=== PATIENT | female | born 1950 | race Caucasian/White ===

== ENCOUNTER 2022-11-14 09:05 | Outpatient (OUT) | payer MEDICARE, SELFPAY ==
[2022-11-14 09:57] LABS: Estimated Average Glucose 117 mg/dL; Glycohemoglobin A1C 5.7 % (4.5-6.2)
[2022-11-14 10:35] LABS: Alanine Aminotransferase 27 U/L (14-59); Albumin Globulin Ratio 0.9; Albumin Level 3.7 g/dL (3.4-5.0); Alkaline Phosphatase 112 U/L (46-116); Aspartate Amino Transferase 13 U/L (15-37); Bilirubin Direct <0.1 mg/dL (0.0-0.2); Bilirubin Total 0.2 mg/dL (0.2-1.0); Chol HDL Ratio 4.8; Cholesterol 252 mg/dL (<=200); Globulin 4.1 g/dL; HDL Cholesterol 53 mg/dL (40-60); Total Protein 7.8 g/dL (6.4-8.2); Triglycerides 409 mg/dL (<=150); VLDL CHOLESTEROL 81.8 mg/dL
[2022-11-14 11:11] LABS: LDL Cholesterol Direct 124 mg/dL
== END 2022-11-14 09:06 | disposition home or self-care (01) ==
LOC: LAB 09:08
PROVIDERS: PCP Internal Medicine; Visit Provider Internal Medicine
DX: E78.5 Hyperlipidemia, unspecified (principal); R73.9 Hyperglycemia, unspecified
CPT/HCPCS: 36415; 80061; 80076; 83036; 83721

== ENCOUNTER 2023-04-01 10:03 | Outpatient (OUT) | payer MEDICARE, SELFPAY ==
--- NOTE | 2023-04-01 10:20 | MM_ITS ---
Patient Name: YAIR GALARZA MR#: [id number] : 1950 Exam Date: 04/01/2023 Ordering Doctor: SHAIKH Love ENGEL . RADIOLOGY REPORT PROCEDURE: MM TOMOSYNTHESIS SCREENING BI COMPARISON: MG MAMM SCREEN 3D RABIA CAD, 03/21/2021. MG MAMM SCREEN 3D RABIA CAD, 03/29/2022. INDICATIONS: Screening Calculator Name NCI Breast Cancer Risk Assessment Tool 5 Year Breast Cancer Risk n/a% Lifetime Breast Cancer Risk n/a% Personal Breast Cancer Yes, Left breast cancer 2006 Personal Ovarian Cancer No Treatments Lumpectomy, radiation, and chemotherapy Family Cancers Father with lung cancer at age 51; Sister with colon cancer at age 54. LOCATION: [facility] BREAST COMPOSITION: Scattered areas fibroglandular density. FINDINGS: DIAGNOSTIC CATEGORY 2--BENIGN FINDING. NO CHANGE FROM COMPARISON. Scattered benign-appearing lymph nodes are present. RIGHT BREAST: No significant suspicious finding. LEFT BREAST: No significant suspicious finding. Stable area of architectural distortion with coarse calcifications lower inner quadrant, posterior breast RECOMMENDATIONS: ROUTINE MAMMOGRAM AND CLINICAL EVALUATION IN 12 MONTHS. PLEASE NOTE: A NORMAL MAMMOGRAM DOES NOT EXCLUDE THE POSSIBILITY OF BREAST CANCER. A CLINICALLY SUSPICIOUS PALPABLE LUMP SHOULD BE BIOPSIED. Dictated by: Naseem Kan MD on 04/01/2023 at 14:25 Approved by: Naseem Kan MD on 04/01/2023 at 14:27
[2023-04-01 10:52] LABS: Chol HDL Ratio 3.9; Cholesterol 184 mg/dL (<=200); HDL Cholesterol 47 mg/dL (40-60); Triglycerides 356 mg/dL (<=150); VLDL CHOLESTEROL 71.2 mg/dL
== END 2023-04-01 10:04 | disposition home or self-care (01) ==
LOC: MAMMO 10:04
PROVIDERS: PCP Internal Medicine; Visit Provider Internal Medicine
DX: Z12.31 Encounter for screening mammogram for malignant neoplasm of breast (principal); E03.9 Hypothyroidism, unspecified; E78.5 Hyperlipidemia, unspecified; Z85.3 Personal history of malignant neoplasm of breast; Z80.1 Family history of malignant neoplasm of trachea, bronchus and lung; Z80.0 Family history of malignant neoplasm of digestive organs
CPT/HCPCS: 36415; 77063; 77067; 80061; 84443

== ENCOUNTER 2023-11-18 11:22 | Outpatient (OUT) | payer MEDICARE, SELFPAY ==
--- OUTSIDE RECORDS SUMMARY | 2023-11-18 11:43 | XMS_ITS | CCD ---
Author Organization [facility] Care Team Providers Care Sample Maker Original Name Role Phone DO Jose David Godwin Primary Care Provider DO Jose David Godwin Attending Provider DO Trixie Gr Jr Other Provider [phone] Yuliet Perez DO Jose David Godwin Primary Care Provider [phone] LUANN Perez Attending Provider [phone] SHAIKH Lorelei ENGEL Admitting Unavailable SHAIKH Lorelei ENGEL Attending Unavailable SHAIKH Lorelei ENGEL Primary Care Unavailable CHIKIS, DR KARI Stern Consulting Unavailable SHAIKH Lorelei ENGEL Consulting Unavailable CITLALI, DR GARDINER Admitting Unavailable OSAGE, DR GARDINER Attending Unavailable OSAGE, DR GARDINER Primary Care Unavailable OSAGE, DR GARDINER Consulting Unavailable OSAGE, DR GARDINER Admitting Unavailable OSAGE, DR GARDINER Attending Unavailable OSAGE, DR GARDINER Primary Care Unavailable SPRINGFIELD, DR KARI Stern Consulting Unavailable OSAGE, DR GARDINER Consulting Unavailable Jose David Godwin MD Primary Care Provider AME HONG Attending Unavailable AME HONG Attending Unavailable SHIRA ZIMMER Attending Unavailable AME HONG Attending Unavailable AME HONG Referring Unavailable SHAIKH ENGEL Attending Unavailable JR. CRUZ, TRIXIE Sanches Attending Unavaila ble AME HONG Attending Unavailable Allergies Allergy Classification Reported Allergen(s) Allergy Type Date of Onset Reaction(s) Facility (1 source) Penicillin G Drug Allergy rash Fever Other (1 source) Penicillin Drug Allergy 0 [facility] (2 sources) Penicillins Drug Allergy 3 Hives, Itching, Rash [facility] Medications Current Medications Medication Drug Class(es) Dates Sig (Normalized) Sig (Original) fluticasone propionate 0.05 mg/actuat metered dose nasal spray (3 sources) Corticosteroid Start: 06-20-2022 take 1 spray(s) nasal route in the morning fluticasone (Flonase) 50 MCG/ACT nasal spray Administer 1 spray into affected nostril(s) in the morning. 0 06/20/2022 Active Flonase Active levothyroxine sodium 0.1 mg oral capsule (3 sources) l-Thyroxine take 1 tablet by mouth in the morning levothyroxine (Tirosint) 100 MCG capsule Take 1 tablet by mouth in the morning. 0 Active Levothyroxine So dium 100 MCG Orally Active montelukast 10 mg oral tablet (2 sources) Leukotriene Receptor Antagonist Start: 10-15-2022 montelukast (Singulair) 10 MG tablet Omeprazole (1 source) Proton Pump Inhibitor Omeprazole Active rosuvastatin calcium 10 mg oral tablet (2 sources) HMG-CoA Reductase Inhibitor Start: 10-28-2022 rosuvastatin (Crestor) 10 MG tablet sulfamethoxazole 800 mg / trimethoprim 160 mg oral tablet (1 source) Dihydrofolate Reductase Inhibitor Antibacterial, Sulfonamide Antimicrobial Start: 11-26-2021 take 1 tablet by mouth every twelve hours Bactrim DS 800-160 MG 1 tablet Orally Twice a day for 7 day(s) Nov, Active Problems Active Problems Problem Classification Problem Date Documented Date Episodic/Chronic Disorders of lipid metabolism (1 source) Hyperlipidemia, unspecified; Translations: [HYPERLIPIDEMIA UNSPECIFIED] Onset: 07-07-2022 Chronic Osteoarthritis (1 source) Arthritis of first carpometacarpal joint of right hand; Translations: [Unilateral primary osteoarthritis of first carpometacarpal joint, right hand] 05-24-2023 Chronic Other connective tissue disease (1 source) Pain in right hand; Translations: [Pain in right hand] 05-24-2023 Episodic Thyroid disorders (5 sources) Hypothyroidism, unspecified; Translations: [HYPOTHYROIDISM UNSPECIFIED] Onset: 02-06-2022 Chronic Unclassified (3 sources) LOW BACK PAIN, UNSPECIFIED; Translations: [LOW BACK PAIN, UNSPECIFIED] Onset: 07-07-2022 Past or Other Problems Problem Classification Problem Date Documented Da te Episodic/Chronic Genitourinary symptoms and ill-defined conditions (1 source) Dysuria Onset: 11-26-2021 Resolved: 11-26-2021 Episodic Other screening for suspected conditions (not mental disorders or infectious disease) (4 sources) Encounter for screening mammogram for malignant neoplasm of breast; Translations: [ENC SCR MAMMO MALIG NEOPLASM BREAST] Onset: 03-29-2022 Episodic Residual codes; unclassified (1 source) Family history of malignant neoplasm of trachea, bronchus and lung; Translations: [FAM HX MALIG NEOPLSM TRACH BRON LNG] Onset: 04-03-2022 Episodic Residual codes; unclassified (1 source) Family history of malignant neoplasm of digestive organs; Translations: [FAM HX MALIG NEOPLASM DIGESTIV ORGN] Onset: 04-03-2022 Episodic Unclassified (1 source) LOW BACK PAIN, UNSPECIFIED; Translations: [LOW BACK PAIN, UNSPECIFIED] Onset: 07-03-2022 Urinary tract infections (1 source) Acute cystitis with hematuria Onset: 11-26-2021 Resolved: 11-26-2021 Episodic Results Test Name Value Interpretation Reference Range Facility DIRECT LDLon 07-03-2022 Cholesterol in LDL [Mass/Vol] 174 mg/dL Normal [facility] Comment on above: Performed By: #### D LDL, LIPID, TSH #### [facility] [address] [address] [address] Radha Farris DLDL NORMAL SEE BELOW Normal [facility] Comment on above: Result Comment: <100 mg/dl OPTIMAL 100 - 129 mg/dl NEAR OR ABOVE OPTIMAL 130 - 159 mg/dl BORDERLINE HIGH 160 - 189 mg/dl HIGH >190 mg/dl VERY HIGH Performed By: #### D LDL, LIPID, TSH #### [facility] [address] [address] [address] Radha Farris LIPID PROFILEon 07-03-2022 CHOL-HDL RATIO NORM SEE BELOW Normal [facility] Comment on above: Result Comment: 3.3 - 4.4 LOW RISK 4.4 - 7.1 AVERAGE RISK 7.1 - 11.0 MODERATE RISK >11.0 HIGH RISK Performed By: #### D LDL, LIPID, TSH #### [facility] [address] [address] [address] Radha Farris Cholesterol [Mass/Vol] 395 mg/dL Critically high <=200 [facility] Comment on above: Performed By: #### D LDL, LIPID, TSH #### [facility] [address] [address] [address] Radha Farris Cholesterol in HDL [Mass/Vol] 35 mg/dL Critically low 40-[address] [facility] Comment on above: Performed By: #### D LDL, LIPID, TSH #### [facility] [address] [address] [address] Radha Farris Cholesterol.total/C holesterol in HDL [Mass ratio] 11.3 {ratio} Normal [facility] Comment on above: Performed By: #### D LDL, LIPID, TSH #### [facility] [address] [place] [address] Dr. Radha Farris HDL NORMAL > or = 60 mg/dl - LO W CARDIOVASCULAR RISK <40 mg/dl - HIGH CARDIOVASCULAR RISK Normal [facility] Comment on above: Performed By: #### D LDL, LIPID, TSH #### [facility] [address] [address] [address] Radha Farris Triglyceride [Mass/Vol] 935 mg/dL Critically high <=[address] [facility] Comment on above: Performed By: #### D LDL, LIPID, TSH #### [facility] [address] [address] [address] Radha Farris TSHon 07-03-2022 TSH 0.906 uIU/mL Normal 0.358-3.740 [facility] Comment on above: Performed By: #### D LDL, LIPID, TSH #### [facility] [address] [place] [address] Dr. Radha Farris XR LSPINE 2_3 VIEWSon 2022 XR LSPINE 2_3 VIEWS EXAMINATION: XR LSPINE 2_3 VIEWS HISTORY: Low back pain COMPARISON: No relevant comparison available. FINDINGS: BONES: 7 mm anterolisthesis of L4 on L5. Mild spondylosis. Moderate to severe diffuse facet osteoarthropathy DISC SPACES: Multilevel disc space narrowing most significant at L5-S1 PARASPINOUS: Negative. No paraspinous abnormality is seen. OTHER: Extensive vascular calcifications IMPRESSION: Moderate to severe degenerative facet osteoarthropathy Electronically authenticated by: KARI DIOP Date: 2022-07-03 13:22 Normal [facility] MG MAMM SCREEN 3D RABIA CADon 03-29-2022 MG MAMM SCREEN 3D RABIA CAD Patient: BERTHA GALARZA Exam Date: 03/29/2022 : 1950 Gender:F Ordering : DR JOSE DAVID GODWIN D.O. Admission #: [id number] Family : Order #: [id number] CLICK HERE TO VIEW EXAM RADIOLOGY REPORT PROCEDURE: MAMMOGRAM SCREENING 3D BILATERAL CAD COMPARISON: MG MAMM SCREEN RABIA W CAD, 03/11/2020. MG MAMM SCREEN 3D RABIA CAD, 03/21/2021. INDICATIONS: Screening mammography Calculator Name NCI Breast Cancer Risk Assessment Tool 5 Year Breast Cancer Risk n/a% Lifetime Breast Cancer Risk n/a% Personal Breast Cancer Yes, Left breast cancer 2006 Personal Ovarian Cancer No Treatments Lumpectomy, radiation, and chemotherapy Family Cancers Father with lung cancer at age 51; Sister with colon cancer at age 54. LOCATION: [facility] BREAST COMPOSITION: Scattered areas fibroglandular density. FINDINGS: DIAGNOSTIC CATEGORY 2--BENIGN FINDING. NO CHANGE FROM COMPARISON. Scattered benign-appearing calcifications are present. Scattered benign-appearing lymph nodes are present. RIGHT BREAST: No significant suspicious finding. LEFT BREAST: No significant suspicious finding. Asymmetrically small, stable. Linear scar marker with architectural distortion lower inner quadrant. Large stable coarse calcification likely postprocedural calcification. RECOMMENDATIONS: ROUTINE MAMMOGRAM AND CLINICAL EVALUATION IN 12 MONTHS. PLEASE NOTE: A NORMAL MAMMOGRAM DOES NOT EXCLUDE THE POSSIBILITY OF BREAST CANCER. A CLINICALLY SUSPICIOUS PALPABLE LUMP SHOULD BE BIOPSIED. Dictated by: Kari Diop MD on 03/29/2022 at 13:21 Approved by: Kari Diop MD on 03/29/2022 at 13:23 Normal [facility] T4on 02-06-2022 T4 [Mass/Vol] 9.60 ug/dL Normal 4.80-13.90 [facility] Comment on above: Performed By: #### T 4, TSH #### [facility] [address] [address] [address] Radha Farris TSHon 02-06-2022 TSH 0.188 uIU/mL Critically low 0.358-3.740 [facility] Comment on above: Performed By: #### T 4, TSH #### [facility] [address] [address] [address] Radha Farris Urine culture routineOrdered By: Yuliet Perez on 11-29-2021 Bacteria identified Cx Nom (U) Escherichia coli [facility] Urinalysis - AUTOMATEDon Appearance (U) clowdy [employer] Other Bilirubin Ql (U) Negative Kens[employer] Other Color (U) yellow Fever Other Glucose Ql (U) Negative [employer] Other Hemoglobin Ql (U) small [employer] Other Ketones Ql (U) Negative [employer] Other Leukocyte esterase Test strip Ql (U) large Fever Other Nitrite Ql (U) Negative [employer] Other pH (U) 6.0 [pH] Fever Other Protein Ql (U) 30 [employer] Other Specific gravity (U) [Rel density] 1.020 Fever Other Urobilinogen (U) [Mass/Vol] 0.2 mg/dL Fever Other Urinalysis - AUTOMATED Fever Other Urine Cultureon 11-26-2021 Urine Culture 20,000 Fever Other Urine Culture <16 Susceptible [employer] Other Urine Culture <8 Susceptible [employer] Other Urine Culture <4 Susceptible [employer] Other Urine Culture <2 Susceptible [employer] Other Urine Culture <1 Susceptible [employer] Other Urine Culture <0.5 Susceptible [employer] Other Urine Culture <32 Susceptible [employer] Other Urine Culture <2/38 Susceptible [employer] Other Bacteria identified Cx Nom (U) ORGANISM: Escherichia coli (O:ESCCOL) Driggs Count 20,000 Aerobic ALMA Charge (NUC86) ---- SUSCEPTIBILITY --- ORGANISM: O:ESCCOL ANTIBIOTIC INTERPRETATION ALMA Amikacin S <16 Ampicillin S <8 Ampicillin/Sulbactam S <8/4 Aztreonam S <4 Cefazolin S <2 Cefepime S <2 Ceftazidime S <1 Ceftazidime/Avibactam S <8 Ceftriaxone S <1 Ciprofloxacin S <1 Ertapenem S <0.5 Gentamicin S <4 Levofloxacin S <2 Meropenem S <1 Nitrofurantoin S <32 Piperacillin/Tazobact am S <16 Tetracycline S <4 Tigecycline S <2 Tobramycin S <4 Trimethoprim/Sulfamet hoxazole S <2/38 S = SUSCEPTIBLE I = INTERMEDIATE R = RESISTANT BLANK = DATA NOT AVAILABLE, OR DRUG NOT ADVISABLE OR TESTED R* = RESISTANCE DUE TO EXTENDED SPECTRUM BETA-LACTAMASES ESBL = EXTENDED SPECTRUM BETA-LACTAMASE TFG = THYMIDINE-DEPENDENT STRAIN CADY = BETA-LACTAMASE POSITIVE IB = INDUCIBLE BETA-LACTAMASE. APPEARS IN PLACE OF 'S' WITH SPECIES KNOWN TO POSSESS INDUCIBLE BETA-LACTAMASES. POTENTIALLY THEY MAY BECOME RESISTANT TO ALL B-LACTAM DRUGS. PERFORMED BY: [place] [id number] PATHOLOGIST FILM COMPOSER JONATHAN PHAN M.D. Normal [facility] Comment on above: Performed By: #### C UU #### [address] chest w toneon 09-13-2021 CT chest w con [facility] [address] [place] [address] CT Scan Report Signed Patient: Bertha Galarza MR#: [id number] : 1950 Acct:[id number] Age/Sex: 71 / F ADM Date: 09/13/21 [facility] Room: Type: [facility] Attending Dr: Jose David Godwin DO Ordering Provider: Jose David Godwin DO Date of Service: 09/13/21 CT/CT chest w con: LT UPPER LOBE MASS Copies to: Jose David Godwin DO CT chest withcontrast TECHNIQUE: Axial imaging with 2-D reconstruction. (3 cc of Isovue-300The CT exam was performed using one or more the following dose reduction techniques: Automated exposure control, adjustment of the MA and/or Kv according to patient size, or use of the iterative reconstruction technique. History: Left upper lung mass seen with facet chest x-ray at [facility]. COMPARISON: 08/29/2021 plain film chest The thyroid gland is normal. Central airway is patent. Esophagus is normal course and caliber. Heart is not enlarged. No pericardial effusion is seen. Nonenlarged mediastinal lymph nodes identified. No hilar mass or adenopathy is seen. No thoracic aortic aneurysm is seen. Small region of nodular consolidation in the posterior lateral portion of the right lower lobe measures up to 15 mm. No infiltrate or congestion identified. No pleural effusion identified. No pneumothorax seen. There is a conglomeration of soft tissue calcification which extends from the left intercostal region to the subcutaneous region of the left mastectomy. This appears to be benign and may correspond with dystrophic calcification. No left lung mass identified. The bony structures are intact. Cholecystectomy clips identified. CT/CT chest w con IMPRESSION: Soft tissue calcification likely secondary to the postoperative changes of the left mastectomy as described above. This corresponds with the plain film findings. No left lung nodule identified. 15 mm region of groundglass density in the right lower lobe. This may represent infectious or inflammatory etiology. Impression dictated by: Nehemias Rasheed M.D.09/13/2021 1:21 PM Dictation Location: [place] [address] Transcribed By: ROSE 09/13/21 1321 Dictated By: Nehemias Rasheed DO 09/13/21 1310 Signed By: 09/13/21 1321 Normal [facility] ISTAT Sebastian Arizmendi 09-13-2021 Creatinine [Mass/Vol] 0.6 mg/dL Normal 0.6-1.3 [facility] Comment on above: Result Comment: ER/E SD physician is notified/shown all ISTAT results. Critical values may be confirmed by laboratory testing if deemed necessary by ER attending doctor. Performed By: #### I SCRE #### [facility] [address] Point of Care testing , ISTAT GFR ( > 60 Normal [facility] Comment on above: Result Comment: GFR estimated reference range: According to KDOQI guidelines, <60 ml/min/1.73m2 is sufficient to diagnose a patient with chronic kidney disease. PERFORMED BY: [place] [address] PATHOLOGIST FILM COMPOSER JONATHAN PHAN M.D. Performed By: #### I SCRE #### [facility] [address] Point of Care testing , ISTAT GFR (Non- Am > 60 Normal [facility] Comment on above: Performed By: #### I SCRE #### [facility] [address] [place] [address] Point of Care testing , Vital Signs Date Time Vital Sign Value Performing Clinician Facility 11-26-2021 11:15040 Body height 167.64 cm Yuliet Perez Other [facility] Other 11-26-2021 11:15-0400 Body mass index (BMI) [Ratio] 30.66 kg/m2 Yuliet Perez Other [facility] Other 11-26-2021 11:15-0400 Body temperature 98 [degF] Yuliet Perez Other [facility] Other 11-26-2021 11:15-0400 Body weight 86.18 kg Yuliet Perez Other F[facility] Other 11-26-2021 11:15-0400 Diastolic blood pressure 61 mm[Hg] Yuliet Perez Other F[facility] Other 11-26-2021 11:15-0400 SaO2% (BldA) [Mass fraction] 98 % Yuliet Perez Other [facility] Other 11-26-2021 11:15-0400 Systolic blood pressure 117 mm[Hg] Yuliet Perez Other F[facility] Other Encounters Encounter Date Encounter Type Care Provider Facility Start: 09-03-2023 End: 09-03-2023 ambulatory SHAIKH MAREN Not Available Start: 05-24-2023 Chart abstracting Ame ROA Work Phone: [facility] Start: 05-24-2023 End: 05-25-2023 ambulatory AME HONG Not Available Start: 05-24-2023 End: 05-24-2023 Postop follow up visit related to original px Ame ROA Work Phone: [facility] Comment on above: S/P carpal tunnel re lease (Primary Dx); Right hand pain; Arthritis of carpometacarpal (CMC) joint of right thumb Start: 05-10-2023 End: 05-10-2023 ambulatory AME HONG Not Available Start: 04-19-2023 End: 04-19-2023 ambulatory AME HONG Not Available Start: 03-29-2023 End: 03-29-2023 ambulatory AME HONG Not Available Start: 03-20-2023 End: 03-20-2023 ambulatory TRIXIE FUENTES Not Available Start: 03-18-2023 End: 03-18-2023 ambulatory SHIRA ZIMMER Not Available Start: 07-03-2022 End: 07-04-2022 ambulatory SHAIKH Lorelei ENGEL Facility:[facility] Start: 03-29-2022 End: 03-30-[address] JOSE DAVID GODWIN Facility:[facility] Start: 02-06-2022 End: 02-07-[address] JOSE DAVID GODWIN Facility:[facility] Start: 11-26-2021 End: 11-26-2021 ambulatory Yuliet Perez Other Fever Other Start: 11-26-2021 Office outpatient ne w 20 minutes Yuliet Perez [facility] [place] Start: 11-26-2021 End: 11-26-2021 Departed Referred DO Jose David Godwin Work Phone: [facility] [address] Start: 09-13-2021 End: 09-13-2021 Patient encounter procedure DO Jose David Citlali Work Phone: [facility] [address] Procedures Date Procedure Procedure Detail Performing Clinician Start: 04-01-2023 Mammography Ame ROA Work Phone: Start: 11-26-2021 Piperacillin/tazobactam Yuliet Perez Other Start: 09-13-2021 CT of thorax with contrast DO Jose David Godwin Work Phone: History of decompres tatum of median nerve S/P carpal tunnel release Ame ROA Work Phone: Urine culture DO Jose David [facility] Work Phone: Plan of Treatment Date Care Activity Detail Author Start: 04-01-2024 Screening for malignant neoplasm of breast Mammogram [facility] Start: 03-23-2024 End: 03-23-2024 Patient encounter procedure 03/23/2024 2:05 PM EST Office Visit [facility] [address] [place] [address] Shira Zimmer MD [address] [place] [address] [facility] Start: 10-11-2023 End: 10-11-2023 Patient encounter procedure 10/11/2023 10:30 AM EDT Office Visit [facility] [address] [place] [address] Ame Hong PA [address] [place] [address] [facility] Start: 05-24-2023 End: 05-24-2023 Patient encounter procedure 05/24/2023 10:30 AM EST Office Visit [facility] [address] [place] [address] Ame Hong PA [address] [place] [address] [facility] Start: 1950 Screening for malignant neoplasm of colon [facility] XR Hand - right 3 Views XR hand 3+ views right Imaging Routine Right hand pain 05/24/2023 10:32 AM EST [facility] Work Phone: Payers Date Payer Category Payer Medicare [employer] MEDICARE ADVANTAGE [facility] MEDICARE ADVANTAGE [id number] 2021-Present [address] [place] [address] [id number] 1959 Medicare [id number] 1950 Unknown [id number] 1950 Unknown [id number] [id number] 1950 Unknown [id number] [id number] 1950 Unknown [id number] [id number] 9 1950 Unknown [id number] [id number] 9 1950 Unknown [id number] [id number] 9 1950 Unknown [id number] [id number] 9 1950 Unknown [id number] [id number] 9 1950 Unknown [id number] [id number] 9 1950 Unknown [id number] [id number] 9 1950 Unknown [id number] [id number] 9 Self-pay Self Pay [id number] Unknown [place] [employer] 1 [id number] Unknown [id number] (STD) [id number] Social History Date Type Detail Facility Tobacco smoking status NHIS Unknown if ever smoked [facility] Work Phone: Start: 1950 Sex Assigned At Female F [facility] Start: 03-29-2023 Sex Assigned At N [facility] [employer] Other Start: 11-07-2022 Tobacco smoking status NHIS Smokes tobacco daily [facility] History of tobacco use Cigarette Smoker [facility] Start: 11-07-2022 Tobacco use and exposure Smokeless tobacco non-user [facility] Start: 05-03-2023 End: 05-24-2023 Alcohol intake Lifetime non-drinker (finding) [facility] Start: 03-29-2023 History of Social function [facility] Start: 01-14-1951 Sex Assigned At Not on file [facility] History of Present illness Narrative 05-24-2023 JANINA Jackson - 05/24/2023 10:30 AM EST Note Date & Type Note Facility 05-24-2023 History of Presen t illness Narrative Images from the original note were not included. HISTORY OF PRESENT ILLNESS: POST OP PT Bertha Galarza is an 73 y.o. @ female. No surgery found s/p surgery onNo surgery found (EST PT) S/P (R) CTR 04/05/23 (7WKS)- DOING BETTER- NOTES SOME DISCOMFORT- SOME N/T RT THUMB/IF/MF; MOST HS- NOTES SWELLING IN THE AM-+TYLENOL/IBUPROFEN XRAY RT HAND TODAY CHANGE 05/24/23 REVIEW OF SYSTEMS: General: Denies fever, fatigue or weight loss Lungs: Denies SOB Cardio: Denies chest pain GI: Denies indigestion or abdominal pain Neuro: Denies numbness or tingling, denies new onset paralysis Musculoskeletal: ( see note) PHYSICAL EXAM: Hand/Wrist Musculoskeletal Exam Inspection Right Right hand/wrist inspection is normal. Erythema: none Ecchymosis: none Edema: none Deformity: mild Deformity comment: prominence CMC joint of thumb. Palpation Right Right hand palpation is normal. Thumb tenderness to palpation: carpometacarpal joint Dorsal hand - 1st metacarpal tenderness to palpation: CMC Palpation additional comments: DENIES PAIN TO PALPATION OF HAND/ WRIST JOINT Range of Motion Right Hand Right hand range of motion is normal. Range of motion additional comments: ABLE TO MAKE FULL FIST Strength Right Hand Right hand strength is normal. Strength additional comments: 5/5 EQUAL RN UROLOGY STRENGTH Neurovascular Right Right neurovascular exam is normal. Radial pulse: normal and 2+ Capillary refill: <3 sec Special Tests Right Cori's test: negative CMC grind test: positive TFCC load test: negative Tinel's - carpal tunnel: negative General Constitutional: appears stated age Labored breathing: no Neurological: alert and oriented x3 Skin: intact Lymphadenopathy: none Procedures Orders Placed This Encounter Procedures XR hand 3+ views right Order Specific Question: Reason for exam: Answer: PAIN ASSESSMENT: ICD-10-CM 1. S/P carpal tunnel release Z98.890 2. Right hand pain M79.641 XR hand 3+ views right PLAN: Reviewed x-ray with patient at bedside, CMC arthritis, patient would like to continue with ice and topical Voltaren, she declines the need for injection today, she would consider this in the future pain does not improve. She is pleased with the carpal tunnel surgery able to use her hand for more function and notes symptoms are much better than 2-3 weeks ago. Patient will call if thumb pain versus for possible injection with surgical and nonsurgical treatment options discussed. Questions answered in laymen terms at the bedside. The diagnosis, home exercise plan and any ongoing restrictions/ recommendations reviewed. If unable to be reached in office, I recommend evaluation at nearest Emergency Room if any symptoms worsened or new symptoms develop for requiring urgent evaluation. JANINA Jackson documented in this encounter [facility] Healthcare Evaluation note 11-26-2021 Note Date & Type Note Facility 11-26-2021 Evaluation note Encounter Date Diagnosis Assessment Notes Nov, Dysuria (ICD-10 - R30.0) Nov, Acute cystitis with hematuria (ICD-10 - N30.01) Discussed diagnosis and dipstick findings with patient. Will treat patient for UTI. Instructed patient to take antibiotic as prescribed, take with food, complete entire course of therapy even if feeling better. Allergies and recent antibiotic use were reviewed with patient. Advised patient culture was sent today and we will call with her results in 2-5 days. Patient instructed to push fluids. Patient symptoms should improve in the next 48 hours, if symptoms persist follow up with PCP or UC. Immediate eval by ER if back or flank pain, fever, chills, N/V, or any other concerning symptoms arise. Patient verbalizes understanding and is agreeable to treatment plan Fever Other Evaluation note Note Date & Type Note Facility Evaluation note No [facility]: Evaluation note Note Date & Type Note Facility Evaluation note Diagnosis S/P carpal tunnel release- Primary Other postprocedural status Right hand pain Pain in soft tissues of limb Arthritis of carpometacarpal (CMC) joint of right thumb documented in this encounter [facility] Healthcare History general Narrative - Reported Note Date & Type Note Facility History general Narrative - Reported Type Medical History Hypothyroid Medical History Hypercholesterolemia Medical History Breast cancer Surgical History colonoscopy Surgical History cholecystectomy Surgical History knee arthroscopy Surgical History tonsillectomy and adenoidectomy Surgical History wisdom teeth Surgical History laparoscopy Surgical History tubal ligation Surgical History biopsy Surgical History left knee replacement 10/04 Hospitalization History see above Fever Other Chief Complaint and Reason for Visit Chief Complaint lung mass Chief Complaint R30.0 Advance Directives No Advanced Directives Records Found Advance Directive Response Recorded Date/ Time Advance Directives No September 08 2:46pm Summary Purpose Family History No Family History Records FoundNo Family History Records FoundNo Family History Records Found Additional Source Comments Care Teams (unrecognized sec tion and content) Team Status: Inactive Member Role Status Dates Jose David Godwin , Primary Care Provider, Attending Pr aníbal Active Trixie Gr Jr, Other Provider Active Team Status: Active Member Role Status Dates Jose David Godwin DO Primary Care Provider Active Team Status: Inactive Member Role Status Dates Jose David Godwin , Primary Care Provider Active Yuliet Perez APRN Attending Provider Active Sample Maker Original Relationship Specialty Start Date End Date Jose David Godwin MD [address] [place] [address] PCP - General Family Medicine 10/11/22 Sample Maker Original Relationship Specialty Start Date End Date Jose David Godwin MD [address] [place] [address] PCP - General Family Medicine 10/11/22 Goals (unrecognized section and content) Goals may be documented in a n alternate sectionNo InformationGoals may be documented in an alternate section REASON FOR VISIT (unrecogniz ed section and content) Reason Comments Pain INFORMATION SOURCE (unrecogn ized section and content) DATE CREATED AUTHOR 12/05/2021 [facility] DATE CREATED AUTHOR AUTHOR'S ORGANIZ ATION 07/08/2022 [facility] DATE CREATED AUTHOR AUTHOR'S ORGANIZ ATION 09/06/2023 [facility] EPIC FOR RECORDS PERTAINING TO PATIENTS WHO ARE OR HAVE BEEN ENROLLED IN A CHEMICAL DEPENDENCY/SUBSTANCEABUSE PROGRAM, SOME INFORMATION MAY BE OMITTED. This clinical summary was aggregated from multiple sources. Caution should be exercised in using it in the provision of clinical care. This summary normalizes information from multiple sources, and as a consequence, information in this document may materially change the coding, format and clinical context of patient data. In addition, data may be omitted in some cases. CLINICAL DECISIONS SHOULD BE BASED ON THE PRIMARY CLINICAL RECORDS. [facility] [employer] [facility]. provides no warranty or guarantee of the accuracy or completeness of information in this document.
[2023-11-18 12:59] LABS: Chol HDL Ratio 4.2; Cholesterol 192 mg/dL (<=200); HDL Cholesterol 46 mg/dL (40-60); Triglycerides 430 mg/dL (<=150)
[2023-11-18 14:11] LABS: LDL Cholesterol Direct 83 mg/dL
== END 2023-11-18 11:23 | disposition home or self-care (01) ==
LOC: LAB 11:25
PROVIDERS: PCP Internal Medicine
DX: E78.1 Pure hyperglyceridemia (principal); H26.493 Other secondary cataract, bilateral; H34.211 Partial retinal artery occlusion, right eye; E78.2 Mixed hyperlipidemia; R06.02 Shortness of breath
CPT/HCPCS: 36415; 80061; 83721

== ENCOUNTER 2023-11-19 10:21 | Outpatient (OUT) | payer MEDICARE, SELFPAY ==
--- NOTE | 2023-11-19 | ECG_ITS ---
[facility] Test Date: 2023-11-19 Pat Name: YAIR GALARZA Department: Room: - Gender: Female Director Of Social Services: : 1950 Requested By: [id number] Order Number: [id number] Reading MD: ERIC FRANK Measurements Intervals [place] Rate: 75 P: 73 MN: 146 QRS: -80 QRSD: 131 T: 46 QT: 392 QTc: 438 Interpretive Statements SINUS RHYTHM RIGHT BUNDLE BRANCH BLOCK [120+ ms QRS DURATION, UPRIGHT V1, 40+ ms S IN I/aVL/V4/V5/V6] LEFT ANTERIOR FASCICULAR BLOCK [QRS AXIS <= -45, QR IN I, RS IN II] INFERIOR MYOCARDIAL INFARCTION [40+ ms Q WAVE AND/OR ST/T ABNORMALITY IN II/aVF], OF INDETERMINATE AGE No previous ECG available for comparison Electronically Signed On 11-19-2023 22:27:07 EDT by ERIC FRANK
--- OUTSIDE RECORDS SUMMARY | 2023-11-19 10:39 | XMS_ITS | CCD ---
Author Organization [facility] Care Team Providers Care Outpatient Coding Specialist Name Role Phone DO Jose David Godwin Primary Care Provider DO Jose David Godwin Attending Provider DO Trixie Gr Jr Other Provider Yuliet Perez DO Jose David Godwin Primary Care Provider LUANN Perez Attending Provider SHAIKH Lorelei ENGEL Admitting Unavailable SHAIKH Lorelei ENGEL Attending Unavailable SHAIKH Lorelei ENGEL Primary Care Unavailable CHIKIS, DR KARI Stern Consulting Unavailable SHAIKH Lorelei ENGEL Consulting Unavailable CITLALI, DR GARDINER Admitting Unavailable FARMVILLE, DR GARDINER Attending Unavailable FARMVIL[place], DR GARDINER Primary Care Unavailable [place], DR GARDINER Consulting Unavailable [place], DR GARDINER Admitting Unavailable [place], DR GARDINER Attending Unavailable [place], DR GARDINER Primary Care Unavailable [place], DR KARI Stern Consulting Unavailable [place], DR GARDINER Consulting Unavailable Jose David Godwin [...] (1 source) Penicillin G Drug Allergy rash [employer] Other (1 source) Penicillin Drug Allergy 0 [facility] Repository (2 sources) Penicillins Drug Allergy [...] Cholesterol in LDL [Mass/Vol] 174 mg/dL Normal [facility] Comment on above: Performed By: #### D LDL, LIPID, TSH #### [facility] [address] [address] [address] Radha Farris DLDL NORMAL SEE BELOW Normal [facility] Comment on above: Result Comment: <100 mg/dl OPTIMAL 100 - 129 mg/dl NEAR OR ABOVE OPTIMAL 130 - 159 mg/dl BORDERLINE HIGH 160 - 189 mg/dl HIGH >190 mg/dl VERY HIGH Performed By: #### D LDL, LIPID, TSH #### [facility] [address] [address] [address] Radha Farris LIPID PROFILEon 07-03-2022 CHOL-HDL RATIO NORM SEE BELOW Normal [facility] Comment on above: Result Comment: 3.3 - 4.4 LOW RISK 4.4 - 7.1 AVERAGE RISK 7.1 - 11.0 MODERATE RISK >11.0 HIGH RISK Performed By: #### D LDL, LIPID, TSH #### [facility] [address] [address] [address] Radha Farris Cholesterol [Mass/Vol] 395 mg/dL Critically high <=200 [facility] Comment on above: Performed By: #### D LDL, LIPID, TSH #### [facility] [address] [address] [address] Radha Farris Cholesterol in HDL [Mass/Vol] 35 mg/dL Critically low 40-60 [facility] Comment on above: Performed By: #### D LDL, LIPID, TSH #### [facility] [address] [address] [address] Radha Farris Cholesterol.total/C holesterol in HDL [Mass ratio] 11.3 {ratio} Normal [facility] Comment on above: Performed By: #### D LDL, LIPID, TSH #### [facility] [address] [place] [address] Dr. Radha Farris HDL NORMAL > or = 60 mg/dl - LO W CARDIOVASCULAR RISK <40 mg/dl - HIGH CARDIOVASCULAR RISK Normal [facility] Comment on above: Performed By: #### D LDL, LIPID, TSH #### [facility] [address] [address] [address] Radha Farris Triglyceride [Mass/Vol] 935 mg/dL Critically high <=150 [facility] Comment on above: Performed By: #### D LDL, LIPID, TSH #### [facility] [address] [address] [address] Radha Farris TSHon 07-03-2022 TSH 0.906 uIU/mL Normal 0.358-3.740 [facility] Comment on above: Performed By: #### D LDL, LIPID, TSH #### [facility] [address] [place] [address] Dr. Radha Farris XR LSPINE 2_3 VIEWSon [...] KARI DIOP Date: 2022-07-03 13:22 Normal [facility] MG MAMM SCREEN 3D RABIA CADon 03-29-2022 MG MAMM SCREEN 3D RABIA CAD Patient: BERTHA GALARZA Exam Date: 03/29/2022 : 1950 Gender:F Ordering : DR JOSE DAVID GODWIN D.O. Admission #: [id number] Family : Order #: [id number] CLICK HERE TO VIEW EXAM RADIOLOGY REPORT [...] colon cancer at age 55. LOCATION: [facility] BREAST COMPOSITION: Scattered areas fibroglandular density. [...] MD on 03/29/2022 at 13:23 Normal [facility] T4on 02-06-2022 T4 [Mass/Vol] 9.60 ug/dL Normal 4.80-13.90 [facility] Comment on above: Performed By: #### T 4, TSH #### [facility] [address] [address] [address] Radha Farris TSHon 02-06-2022 TSH 0.188 uIU/mL Critically low 0.358-3.740 [facility] Comment on above: Performed By: #### T 4, TSH #### [facility] [address] [address] [address] Radha Farris Urine culture routineOrdered By: Yuliet Perez on 11-29-2021 Bacteria identified Cx Nom (U) Escherichia coli [facility] Urinalysis - AUTOMATEDon Appearance (U) clowdy [employer] Other Bilirubin Ql (U) Negative [employer] Other Color (U) yellow [employer] Other Glucose Ql (U) Negative [employer] Other Hemoglobin Ql (U) small [employer] Other Ketones Ql (U) Negative [employer] Other Leukocyte esterase Test strip Ql (U) large [employer] Other Nitrite Ql (U) Negative [employer] Other pH (U) 6.0 [pH] [employer] Other Protein Ql (U) 30 [employer] Other Specific gravity (U) [Rel density] 1.020 [employer] Other Urobilinogen (U) [Mass/Vol] 0.2 mg/dL [employer] Other Urinalysis - AUTOMATED [employer] Other Urine Cultureon 11-26-2021 Urine Culture 20,000 [employer] Other Urine Culture <16 Susceptible [employer] Other Urine Culture <8 Susceptible [employer] Other Urine Culture <4 Susceptible [employer] Other Urine Culture <2 Susceptible [employer] Other Urine Culture <1 Susceptible [employer] Other Urine Culture <0.5 Susceptible [employer] Other Urine Culture <32 Susceptible [employer] Other Urine Culture <2/38 Susceptible [employer] Other Bacteria identified Cx Nom (U) ORGANISM: Escherichia coli (O:ESCCOL) [place] Count 20,000 Aerobic ALMA Charge (NUC86) ---- [...] RESISTANT TO ALL B-LACTAM DRUGS. PERFORMED BY: [place] [id number] PATHOLOGIST [employer]BP JONATHAN PHAN M.D. Normal [facility] Comment on above: Performed By: #### C UU #### [address] chest w toneon 09-13-2021 CT chest w con [facility] [address] [place] [address] CT Scan Report Signed Patient: Bertha Galarza MR#: [id number] : 1950 Acct:[id number] Age/Sex: 71 / F ADM Date: 09/13/21 [facility] Type: [facility] Attending Dr: Jose David Godwin DO Ordering [...] mass seen with facet chest x-ray at [place]. COMPARISON: 08/29/2021 plain film chest The thyroid [...] Nehemias Rasheed M.D.09/13/2021 1:21 PM Dictation Location: [place] [address] Transcribed By: ROSE 09/13/21 1321 Dictated By: Nehemias Rasheed DO 09/13/21 1310 Signed By: 09/13/21 1321 Normal [facility] ISTAT Sebastian Arizmendi 09-13-2021 Creatinine [Mass/Vol] 0.6 mg/dL Normal 0.6-1.3 [facility] Comment on above: Result Comment: ER/E SD physician is notified/shown all ISTAT results. Critical values may be confirmed by laboratory testing if deemed necessary by ER attending doctor. Performed By: #### I SCRE #### [facility] [address] Point of Care testing , ISTAT GFR ( > 60 Normal [facility] Comment on above: Result Comment: GFR estimated reference range: According to KDOQI guidelines, <60 ml/min/1.73m2 is sufficient to diagnose a patient with chronic kidney disease. PERFORMED BY: [place] [address] PATHOLOGIST [employer] JONATHAN PHAN M.D. Performed By: #### I SCRE #### [facility] [address] Point of Care testing , ISTAT GFR (Non- Am > 60 Normal [facility] Comment on above: Performed By: #### I SCRE #### [facility] [address] [place] [address] Point of Care testing , Vital Signs Date Time Vital Sign Value Performing Clinician Facility 11-26-2021 11:15040 Body height 167.64 cm Yuliet Perez Other [employer] [facility] [employer] Other 11-26-2021 11:15-0400 Body mass index (BMI) [Ratio] 30.66 kg/m2 Yuliet Perez Other [employer] Other 11-26-2021 11:15-0400 Body temperature 98 [degF] Yuliet Perez Other [employer] [facility] [employer] Other 11-26-2021 11:15-0400 Body weight 86.18 kg Yuliet Perez Other [employer] Other 11-26-2021 11:15-0400 Diastolic blood pressure 61 mm[Hg] Yuliet Perez Other [employer] Other 11-26-2021 11:15-0400 SaO2% (BldA) [Mass fraction] 98 % Yuliet Perez Other [employer] Other 11-26-2021 11:15-0400 Systolic blood pressure 117 mm[Hg] Yuliet Perez Other [employer] Other Encounters Encounter Date Encounter Type Care Provider Facility Start: 09-03-2023 End: 09-03-2023 ambulatory SHAIKH MAREN Not Available Start: 05-24-2023 Chart abstracting Ame ROA Work Phone: [facility] Start: 05-24-2023 End: 05-25-2023 ambulatory AME HONG Not Available Start: 05-24-2023 End: 05-24-2023 Postop follow up visit related to original px Ame ROA Work Phone: [facility] Comment on above: S/P carpal tunnel [...] 11-26-2021 End: 11-26-2021 ambulatory Yuliet Perez Other [employer] Other Start: 11-26-2021 Office outpatient ne w 20 minutes Yuliet Perez [facility] [place] Start: 11-26-2021 End: 11-26-2021 Departed Referred DO Jose David Godwin Work Phone: [facility] [place] Start: 09-13-2021 End: 09-13-2021 Patient encounter procedure DO Jose David Citlali Work Phone: [facility] [address] Procedures Date Procedure Procedure Detail Performing Clinician Start: 04-01-2023 Mammography Ame ROA Work Phone: Start: 11-26-2021 Piperacillin/tazobactam Yuliet Perez Other Start: 09-13-2021 CT of thorax with contrast DO Jose David Godwin Work Phone: History of decompres tatum of median nerve S/P carpal tunnel release Ame ROA Work Phone: Urine culture DO Jose David [facility] Work Phone: Plan of Treatment Date Care Activity Detail Author Start: 04-01-2024 Screening for malignant neoplasm of breast Mammogram [facility] Start: 03-23-2024 End: 03-23-2024 Patient encounter procedure 03/23/2024 2:05 PM EST Office Visit [facility] [address] [place] [address] Shira Zimmer MD [address] [place] [address] [facility] Start: 10-11-2023 End: 10-11-2023 Patient encounter procedure 10/11/2023 10:30 AM EDT Office Visit [facility] [address] [place] [address] Ame Hong PA [address] [place] [address] [facility] Start: 05-24-2023 End: 05-24-2023 Patient encounter procedure 05/24/2023 10:30 AM EST Office Visit [facility] [address] [place] [address] Ame Hong PA [address] [place] [address] [facility] Start: 1950 Screening for malignant neoplasm of colon [facility] XR Hand - right 3 Views XR hand 3+ views right Imaging Routine Right hand pain 05/24/2023 10:32 AM EST [facility] Work Phone: Payers Date Payer Category Payer Medicare [employer] MEDICARE ADVANTAGE FOR[facility]LY [facility], 1928–1983 MEDICARE ADVANTAGE [id number] 2021-Present [address] [place] [address] [id number] 1959 Medicare [id number] 1950 Unknown [id number] 1950 Unknown [id number] [id number] 1950 Unknown [id number] [id number] 1950 Unknown [id number] 2.16.840.1.663362.3.579.2.125 9 1950 Unknown [id number] 2.16.840.1.993154.3.579.2.125 9 1950 Unknown [id number] 2.16.840.1.294850.3.579.2.125 9 1950 Unknown [id number] 2.16.840.1.588271.3.579.2.125 9 1950 Unknown [id number] 2.16.840.1.858533.3.579.2.125 9 1950 Unknown [id number] 2.16.840.1.822191.3.579.2.125 9 1950 Unknown [id number] 2.16.840.1.051256.3.579.2.125 9 1950 Unknown [id number] 2.16.840.1.020593.3.579.2.125 9 Self-pay Self Pay [id number] Unknown [place] BC/BS 1 [id number] Unknown [id number] (STD) [id number] Social History Date Type Detail Facility Tobacco smoking status NHIS Unknown if ever smoked [facility] Work Phone: Start: 1950 Sex Assigned At Female F [facility] Start: 03-29-2023 Sex Assigned At N [facility] [employer] Other Start: 11-07-2022 Tobacco smoking status NHIS [...] is normal. Strength additional comments: 5/5 [employer] Neurovascular Right Right neurovascular exam is [...] evaluation. JANINA Jackson documented in this encounter [facility] Healthcare Evaluation note 11-26-2021 Note Date [...] understanding and is agreeable to treatment plan [employer] Other Evaluation note Note Date & Type Note Facility Evaluation note [facility] Work Phone: Evaluation note Note Date & Type Note Facility Evaluation note Diagnosis S/P carpal tunnel release- Primary Other postprocedural status Right hand pain Pain in soft tissues of limb Arthritis of carpometacarpal (CMC) joint of right thumb documented in this encounter [facility] Healthcare History general Narrative - Reported Note [...] knee replacement 10/04 Hospitalization History see above [employer] Other Chief Complaint and Reason for Visit [...] Active Yuliet Perez APRN Attending Provider Active Outpatient Coding Specialist Relationship Specialty Start Date End Date Jose David Godwin MD [address] [place] [address] PCP - General Family Medicine 10/11/22 Outpatient Coding Specialist Relationship Specialty Start Date End Date Jose David Godwin MD [address] [place] [address] PCP - General Family Medicine 10/11/22 Goals (unrecognized section and content) Goals may be documented in a n alternate sectionNo InformationGoals may be documented in an alternate section REASON FOR VISIT (unrecogniz ed section and content) Reason Comments Pain INFORMATION SOURCE (unrecogn ized section and content) DATE CREATED AUTHOR 12/05/2021 [facility] DATE CREATED AUTHOR AUTHOR'S ORGANIZ ATION 07/08/2022 [facility] DATE CREATED AUTHOR AUTHOR'S ORGANIZ ATION 09/06/2023 [facility] EPIC FOR RECORDS PERTAINING TO PATIENTS [...] BE BASED ON THE PRIMARY CLINICAL RECORDS. [facility] [employer] [facility]. provides no warranty or guarantee of the accuracy or completeness of information in this document.
== END 2023-11-19 10:22 | disposition home or self-care (01) ==
LOC: CARD 10:22
DX: R06.02 Shortness of breath (principal); R07.89 Other chest pain
CPT/HCPCS: 93005

== ENCOUNTER 2023-11-20 12:50 | Outpatient (OUT) | payer MEDICARE, SELFPAY ==
--- OUTSIDE RECORDS SUMMARY | 2023-11-20 12:58 | XMS_ITS | CCD ---
Author Organization [facility] Care Team Providers Care Chief Deputy Sheriff Name Role Phone DO Jose David Godwin Primary Care Provider [phone] DO Jose David Godwin Attending Provider DO Trixie Gr Jr Other Provider [phone] Yuliet Perez DO Jose David Godwin Primary Care Provider LUANN Perez Attending Provider [phone] SHAIKH Lorelei ENGEL Admitting Unavailable SHAIKH Lorelei ENGEL Attending Unavailable SHAIKH Lorelei ENGEL Primary Care Unavailable CHIKIS, DR KARI Stern Consulting Unavailable SHAIKH Lorelei ENGEL Consulting Unavailable CITLALI, DR GARDINER Admitting Unavailable HOLLAND, DR GARDINER Attending Unavailable HOLLAND, DR GARDINER Primary Care Unavailable HOLLAND, DR GARDINER Consulting Unavailable HOLLAND, DR GARDINER Admitting Unavailable HOLLAND, DR GARDINER Attending Unavailable HOLLAND, DR GARDINER Primary Care Unavailable [place], DR KARI Stern Consulting Unavailable HOLLAND, DR GARDINER Consulting Unavailable Jose David Godwin MD Primary Care Provider AME HONG Attending Unavailable AME HONG Attending Unavailable AME HONG Attending Unavailable AME HONG Referring Unavailable SHAIKH ENGEL Attending Unavailable SHIRA ZIMMER Attending Unavailable AME HONG Attending Unavailable AME HONG Referring Unavailable JR. GR GEORGE C Attending Unavaila DANDY Cruz Attending Unavailable JOVAN RINALDI Attending UnavailAME Gracia Attending Unavailable Allergies Allergy Classification Reported Allergen(s) Allergy Type Date of Onset Reaction(s) Facility (1 source) Penicillin G Drug Allergy rash [facility] Other (1 source) Penicillin Drug Allergy 0 [facility] Repository (2 sources) Penicillins Drug Allergy [...] Cholesterol in LDL [Mass/Vol] 174 mg/dL Normal [facility] Comment on above: Performed By: #### D LDL, LIPID, TSH #### [facility] [address] [place] [address] Dr. Radha Farris DLDL NORMAL SEE BELOW Normal [facility] Comment on above: Result Comment: <100 mg/dl OPTIMAL 100 - 129 mg/dl NEAR OR ABOVE OPTIMAL 130 - 159 mg/dl BORDERLINE HIGH 160 - 189 mg/dl HIGH >190 mg/dl VERY HIGH Performed By: #### D LDL, LIPID, TSH #### [facility] [address] [address] [address] Radha Farris LIPID PROFILEon 07-03-2022 CHOL-HDL RATIO NORM SEE BELOW Normal [facility] Comment on above: Result Comment: 3.3 - 4.4 LOW RISK 4.4 - 7.1 AVERAGE RISK 7.1 - 11.0 MODERATE RISK >11.0 HIGH RISK Performed By: #### D LDL, LIPID, TSH #### [facility] [address] [address] [address] Radha Farris Cholesterol [Mass/Vol] 395 mg/dL Critically high <=200 [facility] Comment on above: Performed By: #### D LDL, LIPID, TSH #### [facility] [address] [address] [address] Radha Farris Cholesterol in HDL [Mass/Vol] 35 mg/dL Critically low 40-60 [facility] Comment on above: Performed By: #### D LDL, LIPID, TSH #### [facility] [address] [address] [address] Radha Farris Cholesterol.total/C holesterol in HDL [Mass ratio] 11.3 {ratio} Normal [facility] Comment on above: Performed By: #### D LDL, LIPID, TSH #### [facility] [address] [address] [address] Radha Farris HDL NORMAL > or = 60 mg/dl - LO W CARDIOVASCULAR RISK <40 mg/dl - HIGH CARDIOVASCULAR RISK Normal [facility] Comment on above: Performed By: #### D LDL, LIPID, TSH #### [facility] [address] [address] [address] Radha Farris Triglyceride [Mass/Vol] 935 mg/dL Critically high <=150 [facility] Comment on above: Performed By: #### D LDL, LIPID, TSH #### [facility] [address] [address] [address] Radha Farris TSHon 07-03-2022 TSH 0.906 uIU/mL Normal 0.358-3.740 [facility] Comment on above: Performed By: #### D LDL, LIPID, TSH #### [facility] [address] [address] [address] Radha Farris XR LSPINE 2_3 VIEWSon [...] KARI DIOP Date: 2022-07-03 13:22 Normal [facility] MG MAMM SCREEN 3D RABIA CADon 03-29-2022 MG MAMM SCREEN 3D RABIA CAD Patient: BERTHA GALARZA Exam Date: 03/29/2022 : 1950 Gender:F Ordering : DR JOSE DAVID GODWIN DJeramyOJeramy Admission #: [id number] Family : Order #: [id number] CLICK HERE TO VIEW EXAM RADIOLOGY REPORT [...] colon cancer at age 55. LOCATION: [facility] BREAST COMPOSITION: Scattered areas fibroglandular density. [...] MD on 03/29/2022 at 13:23 Normal [facility] T4on 02-06-2022 T4 [Mass/Vol] 9.60 ug/dL Normal 4.80-13.90 [facility] Comment on above: Performed By: #### T 4, TSH #### [facility] [address] [place] [address] Dr. Radha Farris TSHon 02-06-2022 TSH 0.188 uIU/mL Critically low 0.358-3.740 [facility] Comment on above: Performed By: #### T 4, TSH #### [facility] [address] [address] [address] Radha Farris Urine culture routineOrdered By: Yuliet Perez on 11-29-2021 Bacteria identified Cx Nom (U) Escherichia coli [facility] Urinalysis - AUTOMATEDon Appearance (U) clowdy [employer] Other Bilirubin Ql (U) Negative [employer] Other Color (U) yellow [facility] Other Glucose Ql (U) Negative [employer] Other Hemoglobin Ql (U) small [employer] Other Ketones Ql (U) Negative [employer] Other Leukocyte esterase Test strip Ql (U) large [facility] Other Nitrite Ql (U) Negative [employer] Other pH (U) 6.0 [pH] [facility] Other Protein Ql (U) 30 [employer] Other Specific gravity (U) [Rel density] 1.020 [facility] Other Urobilinogen (U) [Mass/Vol] 0.2 mg/dL [facility] Other Urinalysis - AUTOMATED [facility] Other Urine Cultureon 11-26-2021 Urine Culture 20,000 [facility] Other Urine Culture <16 Susceptible [employer] Other Urine Culture <8 Susceptible [employer] Other Urine Culture <4 Susceptible [employer] Other Urine Culture <2 Susceptible [employer] Other Urine Culture <1 Susceptible [employer] Other Urine Culture <0.5 Susceptible [employer] Other Urine Culture <32 Susceptible [employer] Other Urine Culture <2/38 Susceptible [employer] Other Bacteria identified Cx Nom (U) ORGANISM: Escherichia coli (O:ESCCOL) Williamson Count 20,000 Aerobic ALMA Charge (NUC86) ---- [...] RESISTANT TO ALL B-LACTAM DRUGS. PERFORMED BY: [address] [place] [address] PATHOLOGIST [employer] AUTOBODY REPAIRER JONATHAN PHAN M.D. Normal [facility] Comment on above: Performed By: #### C UU #### [facility] [address] [id number] [facility] CT chest w conon 09-13-2021 CT chest w con [facility] Main [place] [id number] Scan Report Signed Patient: Bertha Galarza MR#: [id number] : 1950 Acct:[id number] Age/Sex: 71 / F ADM Date: 09/13/21 Loc: ICCT Room: Type: [facility] CLI Attending Dr: Jose David Godwin DO Ordering [...] mass seen with facet chest x-ray at [place]. COMPARISON: 08/29/2021 plain film chest The thyroid [...] Nehemias Rasheed M.D.09/13/2021 1:21 PM Dictation Location: [facility]--13 Transcribed By: [facility] 09/13/21 1321 Dictated By: Nehemias Rasheed DO 09/13/21 1310 Signed By: 09/13/21 1321 Normal [facility] ISTAT XRay CREon 09-13-2021 Creatinine [Mass/Vol] 0.6 mg/dL Normal 0.6-1.3 [facility] Comment on above: Result Comment: ER/E SD physician is notified/shown all ISTAT results. Critical values may be confirmed by laboratory testing if deemed necessary by ER attending doctor. Performed By: #### I SCRE #### [address] Point of Care testing , ISTAT GFR ( > 60 Normal [facility] Comment on above: Result Comment: GFR estimated reference range: According to KDOQI guidelines, <60 ml/min/1.73m2 is sufficient to diagnose a patient with chronic kidney disease. PERFORMED BY: [place] [address] PATHOLOGIST [employer] AUTOBODY REPAIRER JONATHAN PHAN M.D. Performed By: #### I SCRE #### [address] Point of Care testing , ISTAT GFR (Non- Am > 60 [facility] Comment on above: Performed By: #### I SCRE #### [facility] [address] [place] [address] Point of Care testing , Vital Signs Date Time Vital Sign Value Performing Clinician Facility 11-26-2021 11:150400 Body height 167.64 cm Yuliet Perez Other [facility] Other 11-26-2021 11:15-0400 Body mass index (BMI) [Ratio] 30.66 kg/m2 Yuliet Perez Other [facility] Other 11-26-2021 11:15-0400 Body temperature 98 [degF] Yuliet Perez Other [facility] Other 11-26-2021 11:15-0400 Body weight 86.18 kg Yuliet Perez Other [facility] Other 11-26-2021 11:15-0400 Diastolic blood pressure 61 mm[Hg] Yuliet Perez Other [facility] Other 11-26-2021 11:15-0400 SaO2% (BldA) [Mass fraction] 98 % Yuliet Perez Other [facility] Other 11-26-2021 11:15-0400 Systolic blood pressure 117 mm[Hg] Yuliet Perez Other [facility] Other Encounters Encounter Date Encounter Type Care Provider Facility Start: 11-18-2023 End: 11-18-2023 ambulatory JOVAN RINALDI Not Available Start: 11-08-2023 End: 11-08-2023 ambulatory DANDY CORREA Not Available Start: 10-22-2023 End: 10-22-2023 ambulatory AME HONG Not Available Start: 09-03-2023 End: 09-03-2023 ambulatory SHAIKH MAREN Not Available Start: 05-24-2023 Chart abstracting Ame ROA Work Phone: [facility] Start: 05-24-2023 End: 05-24-2023 Postop follow up visit related to original px Ame ROA Work Phone: [facility] Comment on above: S/P carpal tunnel re lease (Primary Dx); Right hand pain; Arthritis of carpometacarpal (CMC) joint of right thumb Start: 05-24-2023 End: 05-24-2023 ambulatory AME HONG Not Available Start: 05-10-2023 End: 05-10-2023 ambulatory AME HONG Not Available Start: 04-19-2023 End: 04-19-2023 ambulatory AME HONG Not Available Start: 03-29-2023 End: 03-29-2023 ambulatory AME HONG Not Available Start: 03-20-2023 End: 03-20-2023 ambulatory TRIXIE FUENTES Not Available Start: 03-18-2023 End: 03-18-2023 ambulatory SHIRA ZIMMER Not Available Start: 07-03-2022 End: 07-04-2022 ambulatory SHAIKH Lorelei MAREN Facility:[facility] Start: 03-29-2022 End: 03-30-[address] JOSE DAVID GODWIN Facility:[facility] Start: 02-06-2022 End: 02-07-[address] JOSE DAVID GODWIN Facility:[facility] Start: 11-26-2021 End: 11-26-2021 ambulatory Yuliet Perez Other [facility] Other Start: 11-26-2021 Office outpatient ne w 20 minutes Yuliet Perez [facility] [place] Start: 11-26-2021 End: 11-26-2021 Departed Referred DO Jose David Godwin Work Phone: [facility] [place] Start: 09-13-2021 End: 09-13-2021 Patient encounter procedure DO Jose David Godwin Work Phone: [facility] [address] Procedures Date Procedure Procedure Detail Performing Clinician Start: 04-01-2023 Mammography Ame castillo PA Work Phone: Start: 11-26-2021 Piperacillin/tazobactam Yuliet Perez Other Start: 09-13-2021 CT of thorax with contrast DO Jose David Godwin Work Phone: History of decompres tatum of median nerve S/P carpal tunnel release Ame Hong PA Work Phone: Urine culture DO Jose David Qureshimargarita lester Work Phone: Plan of Treatment Date Care Activity Detail Author Start: 04-01-2024 Screening for malignant neoplasm of breast Mammogram [facility] Start: 03-23-2024 End: 03-23-2024 Patient encounter procedure 03/23/2024 2:05 PM EST Office Visit [facility] [address] [place] [phone] Shira Zimmer MD [address] [place] [address] [facility] Start: 10-11-2023 End: 10-11-2023 Patient encounter procedure 10/11/2023 10:30 AM EDT Office Visit [facility] [address] [place] [address] Ame Hong PA [address] [place] [address] [facility] Start: 05-24-2023 End: 05-24-2023 Patient encounter procedure 05/24/2023 10:30 AM EST Office Visit [facility] [address] [place] [address] Ame Hong PA [address] [place] [address] [facility] Start: 1950 Screening for malignant neoplasm of colon [facility] XR Hand - right 3 Views XR hand 3+ views right Imaging Routine Right hand pain 05/24/2023 10:32 AM EST [facility] Work Phone: Payers Date Payer Category Payer Medicare [employer] MEDICARE ADVANTAGE [id number] 2021-Present [address] [place] [address] [id number] 1958 Medicare [id number] 1950 Unknown [id number] [id number] 1950 Unknown [id number] 2.16.840.1.038347.3.579.2.593 1950 Unknown [id number] 2.16.840.1.463705.3.579.2.593 1950 Unknown [id number] 2.16.840.1.814380.3.579.2.125 9 1950 Unknown [id number] 2.16.840.1.818367.3.579.2.125 9 1950 Unknown [id number] 2.16.840.1.853397.3.579.2.125 9 1950 Unknown [id number] 2.16.840.1.979231.3.579.2.125 9 1950 Unknown [id number] 2.16.840.1.181978.3.579.2.125 9 1950 Unknown [id number] 2.16.840.1.260679.3.579.2.125 9 1950 Unknown [id number] 2.16.840.1.554361.3.579.2.125 9 1950 Unknown [id number] 2.16.840.1.427930.3.579.2.125 9 1950 Unknown [id number] 2.16.840.1.079287.3.579.2.125 9 1950 Unknown [id number] 2.16.840.1.402570.3.579.2.125 1950 Unknown [id number] 2.16.840.1.281075.3.579.2.125 9 1950 Unknown [id number] 2.16.840.1.729912.3.579.2.125 9 Self-pay Self Pay [id number] Unknown [place] BC/BS 1 [id number] Unknown Other1 (STD) [id number] Social History Date Type Detail Facility Tobacco smoking status NHIS Unknown if ever smoked [facility] Work Phone: Start: 1950 Sex Assigned At Female F [facility] Start: 03-29-2023 Sex Assigned At N [employer] Other Start: 11-07-2022 Tobacco smoking status COIS Smokes tobacco daily [facility] History of tobacco use Cigarette Smoker [facility] Start: 11-07-2022 Tobacco use and exposure Smokeless tobacco non-user [facility] Start: 05-03-2023 End: 05-24-2023 Alcohol intake Lifetime non-drinker (finding) [facility] Start: 03-29-2023 History of Social function [facility] Start: 1950 Sex Assigned At Not on file N [...] is normal. 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 JANINA Jackson documented in this encounter [facility] Evaluation note 11-26-2021 Note Date & Type [...] understanding and is agreeable to treatment plan [facility] Other Evaluation note Note Date & Type Note Facility Evaluation note No assessment information availa [facility] Work Phone: Evaluation note Note Date & Type Note Facility Evaluation note Diagnosis S/P carpal tunnel release- Primary Other postprocedural status Right hand pain Pain in soft tissues of limb Arthritis of carpometacarpal (CMC) joint of right thumb documented in this encounter [facility] History general Narrative - Reported Note [...] knee replacement 10/04 Hospitalization History see above [facility] Other Chief Complaint and Reason for Visit Chief Complaint lung mass Chief Complaint R30.0 Advance Directives No Advanced Directives Records Found Advance Directive Response Recorded Date/ Time Advance Directives No September 08 2 2:46pm Summary Purpose Family History No Family History Records FoundNo Family History Records FoundNo Family History Records Found Additional Source Comments Care Teams (unrecognized sec tion and content) Team Status: Inactive Member Role Status Dates Jose David Godwin DO Primary Care Provider, Attending Stanislav Gr Jr, DO Other Provider Active Team Status: Active Member Role Status Dates Jose David Godwin DO Primary Care Provider Active Team Status: Inactive Member Role Status Dates Jose David Godwin DO Primary Care Provider Active Yuliet Perez APRN Attending Provider Active Chief Deputy Sheriff Relationship Specialty Start Date End Date Jose David Godwin MD [address] [place] [address] PCP - General Family Medicine 10/11/22 Chief Deputy Sheriff Relationship Specialty Start Date End Date Jose David Godwin MD [address] [place] [address] PCP - General Family Medicine 10/11/22 Goals (unrecognized section and content) Goals may be documented in a n alternate sectionNo InformationGoals may be documented in an alternate section REASON FOR VISIT (unrecogniz ed section and content) Reason Comments Pain INFORMATION SOURCE (unrecogn ized section and content) DATE CREATED AUTHOR 12/05/2021 [facility] DATE CREATED AUTHOR AUTHOR'S ORGANIZ ATION 07/08/2022 [facility] DATE CREATED AUTHOR AUTHOR'S ORGANIZ ATION 11/19/2023 [facility] FOR RECORDS PERTAINING TO PATIENTS WHO ARE [...] BE BASED ON THE PRIMARY CLINICAL RECORDS. [facility] [employer] [facility]. provides no warranty or guarantee of the accuracy or completeness of information in this document.
[2023-11-20 13:25] LABS: Estimated Average Glucose 117 mg/dL; Glycohemoglobin A1C 5.7 % (4.5-6.2)
[2023-11-20 13:41] LABS: TSH W/ REFLEX FT4 0.209 uIU/mL (0.358-3.740)
[2023-11-20 14:03] LABS: Free T4 1.37 ng/dL (0.76-1.46)
== END 2023-11-20 12:51 | disposition home or self-care (01) ==
DX: E78.1 Pure hyperglyceridemia (principal); E78.2 Mixed hyperlipidemia; E03.9 Hypothyroidism, unspecified
CPT/HCPCS: 36415; 83036; 84439; 84443

== ENCOUNTER 2023-11-28 09:50 | Outpatient (OUT) | payer MEDICARE, SELFPAY ==
--- OUTSIDE RECORDS SUMMARY | 2023-11-28 09:53 | XMS_ITS | CCD ---
Author Organization [facility] Care Team Providers Care [employer] Name Role Phone DO Jose David Godwin Primary Care Provider DO Jose David Godwin Attending Provider [phone] DO Trixie Gr Jr Other Provider Yuliet Perez DO Jose David Godwin Primary Care Provider [phone] LUANN Perez Attending Provider SHAIKH Lorelei ENGEL Admitting Unavailable SHAIKH Lorelei ENGEL Attending Unavailable SHAIKH Lorelei ENGEL Primary Care Unavailable CHIKIS, DR KARI Stern Consulting Unavailable SHAIKH Lorelei ENGEL Consulting Unavailable CITLALI, DR GARDINER Admitting Unavailable PEACH ORCHARD, DR GARDINER Attending Unavailable PEACH ORCHARD, DR GARDINER Primary Care Unavailable PEACH ORCHARD, DR GARDINER Consulting Unavailable PEACH ORCHARD, DR GARDINER Admitting Unavailable PEACH ORCHARD, DR GARDINER Attending Unavailable CITLALI, DR GARDINER Primary Care Unavailable REDDING, DR KARI Stern Consulting Unavailable PEACH ORCHARD, DR GARDINER Consulting Unavailable Citlali MORENO, Jose David Mclean Primary Care Provider AME HONG Attending Unavailable AME HONG Attending Unavailable AME HONG Attending Unavailable AME HONG Referring Unavailable SHAIKH ENGEL Attending Unavailable SHIRA ZIMMER Attending Unavailable AME HONG Attending Unavailable AME HONG Referring Unavailable JR. GR GEORGE C Attending UnavailDANDY Menchaca Attending Unavailable JOVAN RINALDI Attending UnavailJOVAN Landis Referring UnavailAME Gracia Attending Unavailable Allergies Allergy Classification Reported Allergen(s) Allergy Type Date of Onset Reaction(s) Facility (1 source) Penicillin G Drug Allergy rash [facility] Other (1 source) Penicillin Drug Allergy 0 [facility] Repository (2 sources) Penicillins Drug Allergy [...] Test Name Value Interpretation Reference Range Facility [facility] US CAROTID ARTERY DUPLE X BILATERALon 11-20-2023 [facility] US CAROTID ARTERY DUPLEX BILATERAL EXAM: Carotid Ultrasound. REASON FOR EXAM: Hypertriglycerdemia. Reference Exam: None TECHNIQUE: Real-time ultrasonographic analysis with color flow Doppler sequencing and Doppler spectral analysis provided for the carotid systems. FINDINGS: Peak systolic velocities are expressed in centimeters per second Carotid Velocities in cm/sec: Right Peak Systole/End Diastole RCCA: 72.20/23.89 RT BULB: 63.18-20.17 ANGUS: P: 87.07/26.55 M: 109.37/33.98 D: 80.36/29.81 RECA: 92.52/16.07 RT VERT: 32.12/10.88 Real-time ultrasound imaging: Atherosclerotic plaquing in the right carotid bulb. Left Peak Systole/End Diastole LCCA: 60.23/18.92 LT BULB: 70.27/21.62 LICA: P: 46.72/17.76 M: 80.70/28.57 D: 70.66/27.41 LECA: 103.09/ 20.27 Real-time ultrasound imaging: Atherosclerotic plaquing in the left carotid bulb. IMPRESSION: 1. Bilateral carotid bulbar atherosclerosis. 2. No hemodynamically significant stenosis identified in either carotid system. *This report is generated using voice recognition reporting (TechLive). On occasion [employer] erroneously drops words from the report or replaces the spoken word with similar sounding words. Please call with any questions/concerns regarding this report.* Dictated and transcribed 11/25/23/dpd This report has been electronically signed and approved by the interpreting radiologist. Electronically Signed Tito Riddle M.D. 2023-11-25 14:40:34 Normal Not Available DIRECT LDLon 07-03-2022 Cholesterol in LDL [Mass/Vol] 174 mg/dL Normal [facility] Comment on above: Performed By: #### D LDL, LIPID, TSH #### [facility] [address] [address] [address] Radha Farris DLDL NORMAL SEE BELOW Normal [facility] Comment on above: Result Comment: <100 mg/dl OPTIMAL 100 - 129 mg/dl NEAR OR ABOVE OPTIMAL 130 - 159 mg/dl BORDERLINE HIGH 160 - 189 mg/dl HIGH >190 mg/dl VERY HIGH Performed By: #### D LDL, LIPID, TSH #### [facility] [address] [address] [address] Radha Farris LIPID PROFILEon 07-03-2022 CHOL-HDL RATIO NORM SEE BELOW Normal [facility] Comment on above: Result Comment: 3.3 - 4.4 LOW RISK 4.4 - 7.1 AVERAGE RISK 7.1 - 11.0 MODERATE RISK >11.0 HIGH RISK Performed By: #### D LDL, LIPID, TSH #### [facility] [address] [address] [address] Radha Farris Cholesterol [Mass/Vol] 395 mg/dL Critically high <=200 [facility] Comment on above: Performed By: #### D LDL, LIPID, TSH #### [facility] [address] [address] [address] Radha Farris Cholesterol in HDL [Mass/Vol] 35 mg/dL Critically low 40-60 [facility] Comment on above: Performed By: #### D LDL, LIPID, TSH #### [facility] [address] [address] [address] Radha Farris Cholesterol.total/C holesterol in HDL [Mass ratio] 11.3 {ratio} Normal [facility] Comment on above: Performed By: #### D LDL, LIPID, TSH #### [facility] [address] [address] [address] Radha Farris HDL NORMAL > or = 60 mg/dl - LO W CARDIOVASCULAR RISK <40 mg/dl - HIGH CARDIOVASCULAR RISK Normal [facility] Comment on above: Performed By: #### D LDL, LIPID, TSH #### [facility] [address] [address] [address] Radha Farris Triglyceride [Mass/Vol] 935 mg/dL Critically high <=150 [facility] Comment on above: Performed By: #### D LDL, LIPID, TSH #### [facility] [address] [address] [address] Radha Farris TSHon 07-03-2022 TSH 0.906 uIU/mL Normal 0.358-3.740 [facility] Comment on above: Performed By: #### D LDL, LIPID, TSH #### [facility] [address] [place] [address] Dr. Radha Farris XR LSPINE 2_3 VIEWSon [...] KARI DIOP Date: 2022-07-03 13:22 Normal [facility] MG MAMM SCREEN 3D RABIA CADon 03-29-2022 MG MAMM SCREEN 3D RABIA CAD Patient: BERTHA GALARZAJeramy Exam Date: 03/29/2022 : 1950 Gender:F Ordering : DR JOSE DAVID GODWIN D.O. Admission #: [id number] Family : Order #: [id number] CLICK HERE TO VIEW EXAM RADIOLOGY REPORT [...] colon cancer at age 55. LOCATION: [facility] BREAST COMPOSITION: Scattered areas fibroglandular density. [...] MD on 03/29/2022 at 13:23 Normal [facility] T4on 02-06-2022 T4 [Mass/Vol] 9.60 ug/dL Normal 4.80-13.90 [facility] Comment on above: Performed By: #### T 4, TSH #### [facility] [address] [place], [place] [address] Dr. Radha Farris TSHon 02-06-2022 TSH 0.188 uIU/mL Critically low 0.358-3.740 [facility] Comment on above: Performed By: #### T 4, TSH #### [facility] [address] [place], [place] [address] Dr. Radha Farris Urine culture routineOrdered By: Yuliet Perez on 11-29-2021 Bacteria identified Cx Nom (U) Escherichia coli [facility] Urinalysis - AUTOMATEDon Appearance (U) clowdy [facility] Other Bilirubin Ql (U) Negative [employer] Other Color (U) yellow [facility] Other Glucose Ql (U) Negative [facility] Other Hemoglobin Ql (U) small [employer] Other Ketones Ql (U) Negative [facility] Other Leukocyte esterase Test strip Ql (U) large [facility] Other Nitrite Ql (U) Negative [facility] Other pH (U) 6.0 [pH] [facility] Other Protein Ql (U) 30 [facility] Other Specific gravity (U) [Rel density] 1.020 [facility] Other Urobilinogen (U) [Mass/Vol] 0.2 mg/dL [facility] Other Urinalysis - AUTOMATED [facility] Other Urine Cultureon 11-26-2021 Urine Culture 20,000 [facility] Other Urine Culture <16 Susceptible [facility] Other Urine Culture <8 Susceptible [facility] Other Urine Culture <4 Susceptible [facility] Other Urine Culture <2 Susceptible [facility] Other Urine Culture <1 Susceptible [facility] Other Urine Culture <0.5 Susceptible [facility] Other Urine Culture <32 Susceptible [facility] Other Urine Culture <2/38 Susceptible [facility] Other Bacteria identified Cx Nom (U) ORGANISM: Escherichia coli (O:ESCCOL) [place] Count 20,000 Aerobic ALMA Charge (NUC86) ---- [...] RESISTANT TO ALL B-LACTAM DRUGS. PERFORMED BY: [place] [address] PATHOLOGIST PIPE COREMAKER JONATHAN PHAN M.D. [facility] Comment on above: Performed By: #### C UU #### [address] chest w anoop 09-13-2021 CT chest w [facility] [place] [address] [place] [address] CT Scan Report Signed Patient: Bertha Galarza MR#: [id number] : 1950 Acct:[id number] Age/Sex: 71 / F ADM Date: 09/13/21 Loc: [facility] Room: Type: [facility] Attending Dr: Jose David Godwin DO [...] mass seen with facet chest x-ray at [facility]. COMPARISON: 08/29/2021 plain film chest The thyroid [...] Nehemias Rasheed M.D.09/13/2021 1:21 PM Dictation Location: [place] [address] Transcribed By: [facility] 09/13/21 1321 Dictated By: Nehemias Rasheed DO 09/13/21 1310 Signed By: 09/13/21 1321 Normal [facility] ISTAT XRay CREon 09-13-2021 Creatinine [Mass/Vol] 0.6 mg/dL Normal 0.6-1.3 [facility] Comment on above: Result Comment: ER/E SD physician is notified/shown all ISTAT results. Critical values may be confirmed by laboratory testing if deemed necessary by ER attending doctor. Performed By: #### I SCRE #### [address] Point of Care testing , ISTAT GFR ( > 60 Normal [facility] Comment on above: Result Comment: GFR estimated reference range: According to KDOQI guidelines, <60 ml/min/1.73m2 is sufficient to diagnose a patient with chronic kidney disease. PERFORMED BY: [place] [address] PATHOLOGIST PIPE COREMAKER JONATHAN PHAN M.D. Performed By: #### I SCRE #### [address] Point of Care testing , ISTAT GFR (Non- Am > 60 Normal [facility] Comment on above: Performed By: #### I SCRE #### [address] Point of Care testing , Vital Signs Date Time Vital Sign Value Performing Clinician Facility 11-26-2021 11:15040 Body height 167.64 cm Yuliet Perez Other [facility] Other 11-26-2021 11:15-0400 Body mass index (BMI) [Ratio] 30.66 kg/m2 Yuliet Perez Other [facility] Other 11-26-2021 11:15-0400 Body temperature 98 [degF] Yuliet Perez Other [facility] Other 11-26-2021 11:15-0400 Body weight 86.18 kg Yuliet Perez Other [facility] Other 11-26-2021 11:15-0400 Diastolic blood pressure 61 mm[Hg] Yuliet Perez Other [facility] Other 11-26-2021 11:15-0400 SaO2% (BldA) [Mass fraction] 98 % Yuliet Perez Other [facility] Other 11-26-2021 11:15-0400 Systolic blood pressure 117 mm[Hg] Yuliet Perez Other [facility] Other Encounters Encounter Date Encounter Type Care Provider Facility Start: 11-20-2023 End: 11-20-2023 ambulatory JOVAN REEDTRICK Not Available Start: 11-18-2023 End: 11-18-2023 ambulatory JOVAN RINALDI Not Available Start: 11-08-2023 End: 11-08-2023 ambulatory DANDY CORREA Not Available Start: 10-22-2023 End: 10-22-2023 ambulatory AME HONG Not Available Start: 09-03-2023 End: 09-03-2023 ambulatory SHAIKH MAREN Not Available Start: 05-24-2023 Chart abstracting Ame castillo PA Work Phone: [facility] Start: 05-24-2023 End: 05-24-2023 Postop follow up visit related to original px Ame Hong PA Work Phone: [facility] Comment on above: S/P carpal tunnel [...] 11-26-2021 End: 11-26-2021 ambulatory Yuliet Perez Other [facility] [employer] Other Start: 11-26-2021 Office outpatient ne w 20 minutes Yuliet Perez [facility] [place] Start: 11-26-2021 End: 11-26-2021 Departed Referred DO Jose David Godwin Work Phone: [facility] [place] Start: 09-13-2021 End: 09-13-2021 Patient encounter procedure DO Jose David Godwin Work Phone: [facility] [address] Procedures Date Procedure Procedure Detail Performing Clinician Start: 04-01-2023 Mammography Ame castillo PA Work Phone: Start: 11-26-2021 Piperacillin/tazobactam Yuliet Perez Other Start: 09-13-2021 CT of thorax with contrast DO Jose David Godwin Work Phone: History of decompres tatum of median nerve S/P carpal tunnel release Ame ROA Work Phone: Urine culture DO [facility] Work Phone: Plan of Treatment Date Care Activity Detail Author Start: 04-01-2024 Screening for malignant neoplasm of breast Mammogram [facility] Start: 03-23-2024 End: 03-23-2024 Patient encounter procedure 03/23/2024 2:05 PM EST Office Visit [facility] [address] [place] [address] Shira Zimmer MD [address] [place] [address] [facility] Start: 10-11-2023 End: 10-11-2023 Patient encounter procedure 10/11/2023 10:30 AM EDT Office Visit [facility] [address] [facility] [address] [place] [id number] Ame Hong PA [address] [place] [address] [facility] Start: 05-24-2023 End: 05-24-2023 Patient encounter procedure 05/24/2023 10:30 AM EST Office Visit [facility] [address] [facility] [address] [place] [phone] Ame Hong PA [address] [place] [address] [facility] Start: 1950 Screening for malignant neoplasm of colon [facility] XR Hand - right 3 Views XR hand 3+ views right Imaging Routine Right hand pain 05/24/2023 10:32 AM EST [facility] Work Phone: Payers Date Payer Category Payer Medicare ANTHEM MEDICARE ADVANTAGE ANTHEM MEDICARE ADVANTAGE [id number] 2021-Present [address] [place] [address] [id number] 1958 Medicare [id number] 1950 Unknown [id number] [id number]3 1950 Unknown [id number] 2.16.840.1.579405.3.579.2.593 1950 Unknown [id number] 2.16.840.1.024745.3.579.2.593 1950 Unknown [id number] 2.16.840.1.233708.3.579.2.125 9 1950 Unknown [id number] 2.16.840.1.237346.3.579.2.125 9 1950 Unknown [id number] 2.16.840.1.479633.3.579.2.125 9 1950 Unknown [id number] 2.16.840.1.701440.3.579.2.125 9 1950 Unknown [id number] 2.16.840.1.120875.3.579.2.125 9 1950 Unknown [id number] 2.16.840.1.755008.3.579.2.125 9 1950 Unknown [id number] 2.16.840.1.984093.3.579.2.125 9 1950 Unknown [id number] 2.16.840.1.937126.3.579.2.125 9 1950 Unknown [id number] 2.16.840.1.204538.3.579.2.125 9 1950 Unknown [id number] 2.16.840.1.250586.3.579.2.125 9 1950 Unknown [id number] 2.16.840.1.298498.3.579.2.125 1950 Unknown [id number] 2.16.840.1.512472.3.579.2.125 1950 Unknown [id number] 2.16.840.1.580366.3.579.2.125 9 Self-pay Self Pay [id number] Unknown [place] BC/BS 1 [id number] Unknown Other1 (STD) [id number] Social History Date Type Detail Facility Tobacco smoking status NHIS Unknown if ever smoked [facility] Work Phone: Start: 1950 Sex Assigned At Female F [facility] Start: 03-29-2023 Sex Assigned At N [facility] Other Start: 11-07-2022 Tobacco smoking status NHIS [...] is normal. 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 JANINA Jackson documented in this encounter [facility] Evaluation note 11-26-2021 Note Date [...] understanding and is agreeable to treatment plan [facility] Other Evaluation note Note Date & Type Note Facility Evaluation note No assessment information availa [facility] Work Phone: Evaluation note Note Date [...] knee replacement 10/04 Hospitalization History see above [facility] Other Chief Complaint and Reason for Visit [...] David Godwin DO Primary Care Provider, Attending Pr aníbal Active Trixie Gr Jr, DO Other Provider Active Team Status: Active Member Role Status Dates Jose David Godwin DO Primary Care Provider Active Team Status: Inactive Member Role Status Dates Jose David Godwin DO Primary Care Provider Active Yuliet Perez APRN Attending Provider Active [employer] Relationship Specialty Start Date End Date Jose David Godwin MD [address] [place] [address] PCP - General Family Medicine 10/11/[address] [employer] Relationship Specialty Start Date End Date Jose David Godwin MD [address] [id number] PCP - General Family Medicine 10/11/22 Goals (unrecognized section and content) Goals may be documented in a n alternate sectionNo InformationGoals may be documented in an alternate section REASON FOR VISIT (unrecogniz ed section and content) Reason Comments Pain INFORMATION SOURCE (unrecogn ized section and content) DATE CREATED AUTHOR 12/05/2021 [facility] DATE CREATED AUTHOR AUTHOR'S ORGANIZ ATION 07/08/2022 [facility] DATE CREATED AUTHOR AUTHOR'S ORGANIZ ATION 11/25/2023 [facility] FOR RECORDS PERTAINING TO PATIENTS WHO ARE [...] BE BASED ON THE PRIMARY CLINICAL RECORDS. [employer] provides no warranty or guarantee of the accuracy or completeness of information in this document.
--- NOTE | 2023-11-28 10:00 | CA_ITS ---
Patient Name: YAIR GALARZA MR#: [id number] : 1950 Exam Date: 11/28/2023 Ordering Doctor: JOVAN RINALDI ECHOCARDIOGRAM REPORT PROCEDURE: CA ECHO DOPPLER COMPLETE INDICATIONS: Shortness of breath on exertion, smoker, h/o breast cancer- chemo and radiation COMPARISON: None. DESCRIPTION: COMPLETE ECHOCARDIOGRAM Real-time transthoracic echocardiography with 2D, M-mode, spectral and color flow Doppler performed. QUALITY: Technical quality was good. LEFT VENTRICLE: Normal chamber size. Normal left ventricular wall thickness. Systolic function is at the lower limits of normal. LV EF: Estimated ejection fraction is 50%. DIASTOLIC: Normal diastolic function. ATRIAL SEPTUM: Visually appears intact. LEFT ATRIUM: Normal chamber size. RIGHT ATRIUM: Normal chamber size. RIGHT VENTRICLE: Normal chamber size. Normal right ventricular systolic function. TRICUSPID VALVE: Normal mobility and thickness. No stenosis with no regurgitation. MITRAL VALVE: Mildly thickened with normal mobility. No evidence of mitral valve stenosis. There is no mitral annular calcification. No mitral regurgitation. AORTIC VALVE: Normal trileaflet appearance. No visible sclerosis. Normal leaflet mobility. No evidence of aortic valve stenosis. No aortic regurgitation. AORTIC ROOT: Normal diameter and appearance. PULMONIC VALVE: Not well visualized. No stenosis. No regurgitation. PERICARDIUM: No evidence of pericardial effusion. IVC: Collapses with inspirations. PLEURA: CONCLUSION: 1. Left ventricle is normal in size and exhibits low normal systolic function. LVEF is estimated at 50%. 2. Normal right ventricular size and systolic function. 3. No significant valvular dysfunction. 4. Normal diastolic function. 5. No pericardial effusion. Adult Echocardiography Procedure Report Left Ventricle LVEDD (3.7 - 5.6 cm): 4.04 cm LVESD (2.2 - 4.0 cm): 3.17 cm LVIVS thickness (0.6 - 1.2 cm): 0.85 cm LVPW thickness (0.5 - 1.0 cm): 0.86 cm e': 0.07 m/s E - e': 9.69 LVOT Max Gradient: 3.07 mm[Hg] LVOT Area (cm2): 0.88 m/s Peak Velocity (LVOT): 0.88 m/s Mean Velocity (LVOT): 0.62 m/s LVOT Diameter 2.02 cm Left Atrium LA Volume Index (2D A2C): 26.01 ml/m2 Left Atrium Systolic Dimension: 2.97 cm Mitral Valve MV E to A Ratio: 0.51 Mitral Valve A-Wave Peak Velocity: 1.27 m/s Mitral Valve E-Wave Peak Velocity: 0.64 m/s Right Ventricle Aorta AO Root Diam: 3.56 cm Aortic Valve AoV Area (Peak Hesham): 2.35 cm2, 2.35 cm2 AoV Area (VTI): 2.35 cm2, 2.35 cm2 Peak Velocity(Antegrade Flow): 1.19 m/s Peak Gradient(Antegrade Flow): 5.67 mm[Hg] Mean Velocity(Antegrade Flow): 0.89 m/s Mean Gradient(Antegrade Flow): 3.50 mm[Hg] Velocity Time Integral: 26.36 cm Tricuspid Valve Pulmonic Valve Mean Gradient: 2.28 mm[Hg] Mean Velocity: 0.70 m/s Peak Velocity: 1.13 m/s, 1.05 m/s Peak Gradient: 5.12 mm[Hg], 4.43 mm[Hg] Right Atrium Right Atrium Systolic Pressure: 31.92 ml, 31.92 ml Dictated by: Sadi Harris M.D. on 11/28/2023 at 19:17 Approved by: Sadi Harris M.D. on 11/28/2023 at 19:21
== END 2023-11-28 09:51 | disposition home or self-care (01) ==
LOC: CARD 09:50
DX: R06.02 Shortness of breath (principal)
CPT/HCPCS: 93306; 93356

== ENCOUNTER 2024-01-22 12:49 | Outpatient (OUT) | payer MEDICARE, SELFPAY ==
--- OUTSIDE RECORDS SUMMARY | 2024-01-22 13:07 | XMS_ITS | CCD ---
Author Organization [facility] Care Team Providers Care Setter Machine Name Role Phone DO Jose David Godwin Primary Care Provider [phone] DO Jose David Godwin Attending Provider DO Trixie Gr Jr Other Provider [phone] Yuliet Perez DO Jose David Godwin Primary Care Provider [phone] LUANN Perez Attending Provider [phone] SHAIKH Lorelei ENGEL Admitting Unavailable SHAIKH Lorelei ENGEL Attending Unavailable SHAIKH Lorelei ENGEL Primary Care Unavailable CHIKIS, DR KARI Stern Consulting Unavailable SHAIKH Lorelei ENGEL Consulting Unavailable CITLALI, DR GARDINER Admitting Unavailable WRIGHT, DR GARDINER Attending Unavailable WRIGHT, DR GARDINER Primary Care Unavailable WRIGHT, DR GARDINER Consulting Unavailable WRIGHT, DR GARDINER Admitting Unavailable WRIGHT, DR GARDINER Attending Unavailable WRIGHT, DR GARDINER Primary Care Unavailable [place], DR KARI Stern Consulting Unavailable WRIGHT, DR GARDINER Consulting Unavailable Jose David Godwin MD Primary Care Provider JOVAN RINALDI Attending UnavailJOVAN Landis Referring UnavailJOVAN Landis Attending UnavailDANDY Sweeney Attending Unavailable AME HONG Referring Unavailable AME HONG Attending Unavailable AME HONG Attending Unavailable JR. GR GEORGE C Attending [place] SHAIKH Brower Attending Unavailable AME HONG Referring Unavailable AME HONG Attending Unavailable SHIRA ZIMMER Attending Unavailable AME HONG Attending Unavailable AME HONG Attending Unavailable ANN JARRETT Attending Unavailable Allergies Allergy Classification Reported Allergen(s) Allergy Type Date of Onset Reaction(s) Facility (1 source) Penicillin G Drug Allergy rash [facility] Other (1 source) Penicillin Drug Allergy 0 [facility] Repository (3 sources) Penicillins; Translations: [PENICILLINS] Drug Allergy 3 Hives, Itching, Rash [facility] (1 source) atorvastatin; Translations: [ATORVASTATIN] Drug Allergy 4 [facility] Repository Medications Current Medications Medication Drug Class(es) Dates [...] Test Name Value Interpretation Reference Range Facility Office Visiton 12-04-2023 Follow-up visit [id number] Bertha Galarza 1950 F Date Provider Department Center 12/04/2023 Sarkis8-ANN JARRETT CARD [facility] Family History Problem Relation Age of Onset Coronary artery disease Mother Coronary artery disease Sister Coronary artery disease Brother Family Status - Relation Status Age at Mother Sister Brother Level of Service:27308 [place] OFFICE/OUTPATIENT NEW LOW MDM 30 MINUTES Normal [facility] VAS US CAROTID ARTERY DUPLE X BILATERALon 11-20-2023 VAS US CAROTID ARTERY DUPLEX BILATERAL EXAM: Carotid [...] report is generated using voice recognition reporting (Retidoc). On occasion Spriggle Kidse erroneously drops words from the report or replaces the spoken word with similar sounding words. Please call with any questions/concerns regarding this report.* Dictated and transcribed 11/25/23/dproyal This report has been electronically signed and approved by the interpreting radiologist. Electronically Signed Tito Riddle M.D. 2023-11-25 14:40:34 Normal Not Available DIRECT LDLon 07-03-2022 Cholesterol in LDL [Mass/Vol] 174 mg/dL Normal [facility] Comment on above: Performed By: #### D LDL, LIPID, TSH #### [facility] [address] [address] [address] Radha Farris DLDL NORMAL SEE BELOW Normal [facility] Comment on above: Result Comment: <100 mg/dl OPTIMAL 100 - 129 mg/dl NEAR OR ABOVE OPTIMAL 130 - 159 mg/dl BORDERLINE HIGH 160 - 189 mg/dl HIGH >190 mg/dl VERY HIGH Performed By: #### D LDL, LIPID, TSH #### [facility] [address] [place], [place] [address] Dr. Radha Farris LIPID PROFILEon 07-03-2022 CHOL-HDL RATIO NORM SEE BELOW Normal [facility] Comment on above: Result Comment: 3.3 - 4.4 LOW RISK 4.4 - 7.1 AVERAGE RISK 7.1 - 11.0 MODERATE RISK >11.0 HIGH RISK Performed By: #### D LDL, LIPID, TSH #### [facility] [address] [address] [address] Radha Farris Cholesterol [Mass/Vol] 395 mg/dL Critically high <=200 [facility] Comment on above: Performed By: #### D LDL, LIPID, TSH #### [facility] [address] [address] [address] Radha Farris Cholesterol in HDL [Mass/Vol] 35 mg/dL Critically low 40-60 [facility] Comment on above: Performed By: #### D LDL, LIPID, TSH #### [facility] [address] [address] [address] Radha Farris Cholesterol.total/C holesterol in HDL [Mass ratio] 11.3 {ratio} Normal [facility] Comment on above: Performed By: #### D LDL, LIPID, TSH #### [facility] [address] [address] [address] Radha Farris HDL NORMAL > or = 60 mg/dl - LO W CARDIOVASCULAR RISK <40 mg/dl - HIGH CARDIOVASCULAR RISK Normal [facility] Comment on above: Performed By: #### D LDL, LIPID, TSH #### [facility] [address] [address] [address] Radha Farris Triglyceride [Mass/Vol] 935 mg/dL Critically high <=150 [facility] Comment on above: Performed By: #### D LDL, LIPID, TSH #### [facility] [address] [address] [address] Radha Farris TSHon 07-03-2022 TSH 0.906 uIU/mL Normal 0.358-3.740 [facility] Comment on above: Performed By: #### D LDL, LIPID, TSH #### [facility] [address] [address] [address] Radha Farris XR LSPINE 2_3 VIEWSon [...] severe degenerative facet osteoarthropathy Electronically authenticated by: KAIR DIOP Date: 2022-07-03 13:22 Normal [facility] MAMM SCREEN 3D RABIA CADon 03-29-2022 MG MAMM SCREEN 3D RABIA CAD Patient: BERTHA GALARZA Exam Date: 03/29/2022 : 1950 Gender:F Ordering : DR JOSE DAVID GODWIN D.O. Admission #: [id number] Family : Order #: [id number] CLICK HERE TO VIEW EXAM RADIOLOGY REPORT [...] colon cancer at age 55. LOCATION: [facility] BREAST COMPOSITION: Scattered areas fibroglandular density. [...] Diop MD on 03/29/2022 at 13:23 Normal [facility] T4on 02-06-2022 T4 [Mass/Vol] 9.60 ug/dL Normal 4.80-13.90 [facility] Comment on above: Performed By: #### T 4, TSH #### [facility] [address] [address] [address] Radha Farris TSHon 02-06-2022 TSH 0.188 uIU/mL Critically low 0.358-3.740 [facility] Comment on above: Performed By: #### T 4, TSH #### [facility] [address] [address] [address] Radha Farris Urine culture routineOrdered By: Yuliet Perez on 11-29-2021 Bacteria identified Cx Nom (U) Escherichia coli [facility] Urinalysis - AUTOMATEDon Appearance (U) clowdy [email or web address] Other Bilirubin Ql (U) Negative [facility] Other Color (U) yellow [facility] Other Glucose Ql (U) Negative [email or web address] Other Hemoglobin Ql (U) small [employer] Other Ketones Ql (U) Negative [employer] Other Leukocyte esterase Test strip Ql (U) large [facility] Other Nitrite Ql (U) Negative [employer] Other pH (U) 6.0 [pH] [facility] Other Protein Ql (U) 30 [employer] Other Specific gravity (U) [Rel density] 1.020 [facility] Other Urobilinogen (U) [Mass/Vol] 0.2 mg/dL [facility] Other Urinalysis - AUTOMATED [facility] Other Urine Cultureon 11-26-2021 Urine Culture 20,000 [facility] Other Urine Culture <16 Susceptible [email or web address] Other Urine Culture <8 Susceptible [employer] Other Urine Culture <4 Susceptible [employer] Other Urine Culture <2 Susceptible [employer] Other Urine Culture <1 Susceptible [employer] Other Urine Culture <0.5 Susceptible [employer] Other Urine Culture <32 Susceptible [employer] Other Urine Culture <2/38 Susceptible [employer] Other Bacteria identified Cx Nom (U) ORGANISM: Escherichia coli (O:ESCCOL) [place] Count 20,000 Aerobic ALMA Charge (NUC86) ---- [...] RESISTANT TO ALL B-LACTAM DRUGS. PERFORMED BY: [place] [address] PATHOLOGIST [employer] HE[employer] PUMP TECHNICIAN JONATHAN PHAN M.D. [facility] Comment on above: Performed By: #### C UU #### [address] chest w conon 09-13-2021 CT chest w con [facility] [place] [address] [place] [address] CT Scan Report Signed Patient: Bertha Galarza MR#: [id number] : 1950 Acct:[id number] Age/Sex: 71 / F ADM Date: 09/13/21 Loc: [facility] Room: Type: [facility] Attending Dr: Jose David Godwin DO [...] mass seen with facet chest x-ray at [place]. COMPARISON: 08/29/2021 plain film chest The thyroid [...] Nehemias Rasheed M.D.09/13/2021 1:21 PM Dictation Location: [place] [address] Transcribed By: [facility] 09/13/21 1321 Dictated By: Nehemias Rasheed DO 09/13/21 1310 Signed By: 09/13/21 1321 Normal [facility] ISTAT XRay CREon 09-13-2021 Creatinine [Mass/Vol] 0.6 mg/dL Normal 0.6-1.3 [facility] Comment on above: Result Comment: ER/E SD physician is notified/shown all ISTAT results. Critical values may be confirmed by laboratory testing if deemed necessary by ER attending doctor. Performed By: #### I SCRE #### [address] Point of Care testing , ISTAT GFR ( > 60 Normal [facility] Comment on above: Result Comment: GFR estimated reference range: According to KDOQI guidelines, <60 ml/min/1.73m2 is sufficient to diagnose a patient with chronic kidney disease. PERFORMED BY: [place] [address] PATHOLOGIST [employer] PU[employer] TECHNICIAN JONATHAN PHAN M.D. Performed By: #### I SCRE #### [address] Point of Care testing , ISTAT GFR (Non- Am > 60 Normal [facility] Comment on above: Performed By: #### I SCRE #### [address] Point of Care testing , Vital Signs Date Time Vital Sign Value Performing Clinician Facility 11-26-2021 11:15-0400 Body height 167.64 cm Yuliet Perez Other [facility] Other 11-26-2021 11:15-0400 Body mass index (BMI) [Ratio] 30.66 kg/m2 Yuliet Perez Other [facility] Other 11-26-2021 11:15-0400 Body temperature 98 [degF] Yuliet Perez Other [facility] Other 11-26-2021 11:15-0400 Body weight 86.18 kg Yuliet Perez Other [facility] Other 11-26-2021 11:15-0400 Diastolic blood pressure 61 mm[Hg] Yuliet Perez Other [facility] Other 11-26-2021 11:15-0400 SaO2% (BldA) [Mass fraction] 98 % Yuliet Perez Other [facility] Other 11-26-2021 11:15-0400 Systolic blood pressure 117 mm[Hg] Yuliet Perez Other [facility] Other Encounters Encounter Date Encounter Type Care Provider Facility Start: 12-19-2023 End: 12-19-2023 ambulatory JOVAN RINALDI Not Available Start: 12-04-2023 End: 12-04-2023 ambulatory ANN [facility] Start: 11-20-2023 End: 11-20-2023 ambulatory JOVAN RINALDI Not Available Start: 11-18-2023 End: 11-18-2023 ambulatory JOVAN RINALDI Not Available Start: 11-08-2023 End: 11-08-2023 ambulatory DANDY CORREA Not Available Start: 10-22-2023 End: 10-22-2023 ambulatory AME HONG Not Available Start: 09-03-2023 End: 09-03-2023 ambulatory SHAIKH MAREN Not Available Start: 05-24-2023 Chart abstracting Ame ROA Work Phone: [facility] Start: 05-24-2023 End: 05-24-2023 Postop follow up visit related to original px Ame ROA Work Phone: [facility] Comment on above: S/P carpal tunnel re lease (Primary Dx); Right hand pain; Arthritis of carpometacarpal (CMC) joint of right thumb Start: 05-24-2023 End: 05-24-2023 ambulatory AME Lakhani MIRANDA Not Available Start: 05-10-2023 End: 05-10-2023 ambulatory AME Lakhani MIRANDA Not Available Start: 04-19-2023 End: 04-19-2023 ambulatory AME Lakhani MIRANDA Not Available Start: 03-29-2023 End: 03-29-2023 ambulatory AME Lakhani MIRANDA Not Available Start: 03-20-2023 End: 03-20-2023 ambulatory TRIXIE FUENTES Not Available Start: 03-18-2023 End: 03-18-2023 ambulatory SHIRA ZIMMER Not Available Start: 07-03-2022 End: 07-04-2022 ambulatory SHAIKH Lorelei ENGEL Facility:[facility] Start: 03-29-2022 End: 03-30-[address] JOSE DAVID GODWIN Facility:[facility] Start: 02-06-2022 End: 02-07-[address] JOSE DAVID GODWIN Facility:[facility] Start: 11-26-2021 End: 11-26-2021 ambulatory Yuliet Perez Other [facility] Other Start: 11-26-2021 Office outpatient ne w 20 minutes Yuliet Perez [facility] [place] Start: 11-26-2021 End: 11-26-2021 Departed Referred DO Jose David Godwin Work Phone: [facility] [address] [place] Start: 09-13-2021 End: 09-13-2021 Patient encounter procedure DO Jose David Godwin Work Phone: [facility] [address] Procedures Date Procedure Procedure Detail Performing Clinician Start: 04-01-2023 Mammography Ame ROA Work Phone: Start: 11-26-2021 Piperacillin/tazobactam Yuliet Perez Other Start: 09-13-2021 CT of thorax with contrast DO Jose David Godwin Work Phone: History of decompres tatum of median nerve S/P carpal tunnel release Ame ROA Work Phone: Urine culture DO Jose David Ambriz se Work Phone: Plan of Treatment Date Care Activity Detail Author Start: 04-01-2024 Screening for malignant neoplasm of breast Mammogram [facility] Start: 03-23-2024 End: 03-23-2024 Patient encounter procedure 03/23/2024 2:05 PM EST Office Visit [facility] [address] [place] [id number] Shira Zimmer MD [address] [place] [address] [facility] Start: 10-11-2023 End: 10-11-2023 Patient encounter procedure 10/11/2023 10:30 AM EDT Office Visit [facility] [address] [place] [address] Ame Hong PA [address] [place] [address] [facility] Start: 05-24-2023 End: 05-24-2023 Patient encounter procedure 05/24/2023 10:30 AM EST Office Visit [facility] [address] [place] [address] Ame Hong PA [address] [place] [address] [facility] Start: 1950 Screening for malignant neoplasm of colon [facility] XR Hand - right 3 Views XR hand 3+ views right Imaging Routine Right hand pain 05/24/2023 10:32 AM EST [facility] Work Phone: Payers Date Payer Category Payer Medicare [employer] MEDICARE ADVANTAGE [facility] MEDICARE ADVANTAGE [id number] 2021-Present [address] [place] [address] [id number] 1958 Medicare [id number] 1950 Unknown [id number] 2.16.840.1.516712.3.579.2.593 1950 Unknown [id number] 2.16.840.1.699803.3.579.2.593 1950 Unknown [id number] 2.16.840.1.927529.3.579.2.593 1950 Unknown [id number] 2.16.840.1.170225.3.579.2.125 9 1950 Unknown [id number] 2.16.840.1.042550.3.579.2.125 9 1950 Unknown [id number] 2.16.840.1.164393.3.579.2.125 9 1950 Unknown [id number] 2.16.840.1.261014.3.579.2.125 9 1950 Unknown [id number] 2.16.840.1.423438.3.579.2.125 9 1950 Unknown [id number] 2.16.840.1.067069.3.579.2.125 9 1950 Unknown [id number] 2.16.840.1.885735.3.579.2.125 9 1950 Unknown [id number] 2.16.840.1.528892.3.579.2.125 9 1950 Unknown [id number] 2.16.840.1.709735.3.579.2.125 9 1950 Unknown [id number] 2.16.840.1.928249.3.579.2.125 9 1950 Unknown [id number] 2.16.840.1.692618.3.579.2.125 9 1950 Unknown [id number] 2.16.840.1.736146.3.579.2.125 9 1950 Unknown [id number] 2.16.840.1.441560.3.579.2.125 9 1950 Unknown [id number] 2.16.840.1.376243.3.579.2.125 9 Self-pay Self Pay [id number] Unknown [place] BC/BS 1 [id number] Unknown [id number] (STD) [id number] Social History Date Type Detail Facility Tobacco smoking status [facility] Unknown if ever smoked [facility] Work Phone: Start: 1950 Sex Assigned At Female [facility] Start: 03-29-2023 Sex Assigned At N [facility] Other Start: 11-07-2022 Tobacco smoking status NHIS Smokes tobacco daily [facility] History of tobacco use Cigarette Smoker [facility] Start: 11-07-2022 Tobacco use and exposure Smokeless tobacco non-user [facility] Start: 05-03-2023 End: 05-24-2023 Alcohol intake Lifetime non-drinker (finding) [facility] Start: 03-29-2023 History of Social function [facility] Start: 1950 Sex Assigned At Not on file [facility] Progress note 12-04-2023 Note Date & Type Note Facility 12-04-2023 Note Cardiology Clinic No te Chief Complaint: Pt is here to establish care. Pt has RBBB. She had echo, carotid us and lipids done two weeks ago. Saw eye dr recently and was told she has plaque build up on the small vessels of the eyes. She smokes 1.5 PPD. HPI: Bertha Galarza is a 73 y.o. female who has a past medical history of Abnormal ECG, Cancer (CMS/HCC), and Hyperlipidemia. that is referred to Cardiology clinic for evaluation of RBBB on EKG. Patient adamantly denies any cardiac complaints or concerns. Patient denies any chest pain or shortness of breath. Patient denies any lower extremity edema, orthopnea, or proximal nocturnal dyspnea. No near-syncope or syncope. No dizziness or lightheadedness. Patient denies any previous history of CVA, PVD, DM, HTN, Depressed LVEF, and CAD. Patient had echocardiogram performed which was unremarkable. She had low normal EF at 50%. Carotid Doppler without evidence of significant stenosis. ROS 10 point ROS is performed and is negative unless otherwise specified in HPI Past Medical History She has a past medical history of Abnormal ECG, Cancer (CMS/HCC), and Hyperlipidemia. Surgical History She has a past surgical history that includes Knee surgery; Cholecystectomy; Carpal tunnel release; Cataract extraction; and Finger surgery. Social History She reports that she has been smoking cigarettes. She has been smoking an average of 1.5 packs per day. She has never used smokeless tobacco. She reports current alcohol use. No history on file for drug use. Family History Family History Problem Relation Name Age of Onset Coronary artery disease Mother Coronary artery disease Sister Coronary artery disease Brother Medications Current Outpatient Medications on File Prior to Visit Medication Sig Dispense Refill levothyroxine (Synthroid, Levoxyl) 75 mcg tablet Take 75 mcg by mouth. rosuvastatin (Crestor) 40 mg tablet Take 40 mg by mouth in the morning. No current facility-administered medications on file prior to visit. Allergies Atorvastatin and Penicillins Physical Exam VITAL SIGNS: BP 124/73 (BP Location: Right arm, Patient Position: Sitting) Pulse 87 Ht 1.676 m (5' 6 ) Wt 87.5 kg (193 lb) SpO2 94% BMI 31.15 kg/m??? Constitutional: Well developed, Well nourished, No acute distress, Non-toxic appearance. HENT: Normocephalic, Atraumatic, Bilateral external ears have normal appearance, Nose appears normal, nares are patent. Eyes: PERRLA, EOMI, Conjunctiva normal, No discharge. Neck: Normal range of motion, No tenderness, Supple, No stridor. No cervical lymphadenopathy noted. Cardiovascular: Normal heart rate, Normal rhythm, No murmurs, No rubs, No gallops. Thorax & Lungs: Normal breath sounds, No respiratory distress, No wheezing, No chest tenderness to palpation. Abdomen: Bowel sounds normal, Soft, Nontender, No masses, No pulsatile masses. Skin: Warm, Dry, No erythema, No rash. Back: No tenderness, No CVA tenderness. Extremities: Intact distal pulses, No edema, No tenderness, No cyanosis, No clubbing. Musculoskeletal: Grossly normal strength in extremities Neurologic: Alert & oriented x 3, no gross focal neurological deficits Psychiatric: Affect normal, Judgment normal, Mood normal. Assessment/Plan: Bertha Galarza is a 73 y.o. female with RBBB Mixed hyperlipidemia Abnormal EKG Cardiac testing reviewed. Patient is asymptomatic. No additional cardiac testing indicated at this time I spent 7 minutes counseling the patient on the importance of smoking cessation. I emphasized the risk of continued smoking. I offered the patient various resources. Patient respectfully declines at this time. Continue rosuvastatin 40 mg daily for HLD [facility] medical management Aggressive risk factor modification Plan of care discussed with patient. All questions were answered. Patient voices understanding and is agreeable with current plan. Patient was educated on red flag symptoms. Strict return precautions were provided. Patient verbalizes understanding Follow-up in cardiology clinic in 3 months, or sooner as needed Thank you for allowing us to participate in the care of your patient. Please do not hesitate to contact cardiology with any questions or concerns. Ann Jarrett MD Interventional Cardiology [facility] History of Present illness Narrative 05-24-2023 JANINA Jackson - 05/24/2023 10:30 AM EST Note Date & Type Note Facility 05-24-2023 History of Presen t illness Narrative Images from the original note were not included. HISTORY OF PRESENT ILLNESS: POST OP PT Bertha Galarza is an 73 y.o. @ female. No surgery found s/p surgery onNo surgery found (EST PT) S/P (R) CTR 12/22/23 (7WKS)- DOING BETTER- NOTES SOME DISCOMFORT- SOME [...] is normal. 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 JANINA Jackson documented in this encounter [facility] Evaluation note 11-26-2021 Note Date [...] understanding and is agreeable to treatment plan [facility] Other Evaluation note Note Date & Type Note Facility Evaluation note No assessment information availa [facility] Work Phone: Evaluation note Note Date & Type Note Facility Evaluation note Diagnosis S/P carpal tunnel release- Primary Other postprocedural status Right hand pain Pain in soft tissues of limb Arthritis of carpometacarpal (CMC) joint of right thumb documented in this encounter [facility] History general Narrative - Reported [...] knee replacement 10/04 Hospitalization History see above [facility] Other Chief Complaint and Reason for Visit [...] David Godwin , Primary Care Provider Active Team Status: Inactive Member Role Status Dates Jose David Godwin , Primary Care Provider Active Yuliet Perez APRN Attending Provider Active Setter Machine Relationship Specialty Start Date End Date Jose David Godwin MD [address] [place] [address] PCP - General Family Medicine 10/11/22 Setter Machine Relationship Specialty Start Date End Date Jose David Godwin MD [address] [place] [address] PCP - General Family Medicine 10/11/22 Goals (unrecognized section and content) Goals may be documented in a n alternate sectionNo InformationGoals may be documented in an alternate section REASON FOR VISIT (unrecogniz ed section and content) Reason Comments Pain INFORMATION SOURCE (unrecogn ized section and content) DATE CREATED AUTHOR 12/05/2021 [facility] DATE CREATED AUTHOR AUTHOR'S ORGANIZ ATION 07/08/2022 [facility] DATE CREATED AUTHOR AUTHOR'S ORGANIZ ATION 12/21/2023 [facility] DATE CREATED AUTHOR AUTHOR'S ORGANIZ ATION 01/08/2024 [facility] FOR RECORDS PERTAINING TO PATIENTS WHO ARE [...] BE BASED ON THE PRIMARY CLINICAL RECORDS. [employer] [facility]. provides no warranty or guarantee of the accuracy or completeness of information in this document.
[2024-01-22 13:37] LABS: TSH W/ REFLEX FT4 0.892 uIU/mL (0.358-3.740)
== END 2024-01-22 12:50 | disposition home or self-care (01) ==
LOC: LAB 12:50
DX: E03.9 Hypothyroidism, unspecified (principal)
CPT/HCPCS: 36415; 84443

== ENCOUNTER 2024-02-18 11:14 | Outpatient (OUT) | payer MEDICARE, SELFPAY ==
--- OUTSIDE RECORDS SUMMARY | 2024-02-18 11:26 | XMS_ITS | CCD ---
Author Organization [facility] Care Team Providers Care Relationship Executive Name Role Phone DO Jose David Godwin Primary Care Provider [phone] DO Jose David Godwin Attending Provider [phone] DO Trixie Gr Jr Other Provider Yuliet Perez Unavailable DO Jose David Godwin Primary Care Provider LUANN Perez Attending Provider SHAIKH Lorelei ENGEL Admitting Unavailable SHAIKH Lorelei ENGEL Attending Unavailable SHAIKH Lorelei ENGEL Primary Care Unavailable CHIKIS, DR KARI Stern Consulting Unavailable SHAIKH Lorelei ENGEL Consulting Unavailable CITLALI, DR GARDINER Admitting Unavailable BANNER, DR GARDINER Attending Unavailable BANNER, DR GARDINER Primary Care Unavailable BANNER, DR GARDINER Consulting Unavailable BANNER, DR GARDINER Admitting Unavailable BANNER, DR GARDINER Attending Unavailable BANNER, DR GARDINER Primary Care Unavailable [place], DR KARI Stern Consulting Unavailable BANNER, DR GARDINER Consulting Unavailable Jose David Godwin MD Primary Care Provider ANN JARRETT Attending Unavailable Stephanie Peters OD Unavailable Moustapha De Leon MD Primary Care Provider Lynsey Ortiz NP Unavailable AME HONG Attending Unavailable AME HONG Attending Unavailable SHIRA ZIMMER Attending Unavailable AME HONG Attending Unavailable AME HONG Referring Unavailable SHAIKH ENGEL Attending Unavailable JR. GR GEORGE C Attending Unavaila AME Vigil Attending Unavailable AME HONG Attending Unavailable AME HONG Referring Unavailable DANDY CAMPOS Attending Unavailable LYNSEY ORTIZ Attending LYNSEY Sewell Referring LYNSEY Sewell Attending BEN Boothe Attending Unavailable Allergies Allergy Classification Reported Allergen(s) Allergy Type Date of Onset Reaction(s) Facility (1 source) Penicillin G Drug Allergy rash [email or web address] Other (1 source) Penicillin Drug Allergy 0 [facility] Repository (9 sources) Penicillins; Translations: [PENICILLINS] Drug Allergy 3 Hives, Itching, Rash [facility] (1 source) atorvastatin; Translations: [ATORVASTATIN] Drug Allergy 4 [facility] Repository Medications Current Medications Medication Drug Class(es) Dates Sig (Normalized) Sig (Original) fluticasone propionate 0.05 mg/actuat metered dose nasal spray (9 sources) Corticosteroid Start: 06-20-2022 take 1 spray(s) nasal route in the morning fluticasone (Flonase) 50 MCG/ACT nasal spray Administer 1 spray into affected nostril(s) in the morning. 06/20/2022 Active Flonase Active levothyroxine sodium 0.075 mg oral tablet (11 sources) l-Thyroxine Start: 11-21-2023 End: 02-16-2025 take 1 tablet by mouth before mealtime levothyroxine (Synthroid) 75 MCG tablet Indications: Hypothyroidism, unspecified type (CMS/HCC) Take 1 tablet (75 mcg) by mouth in the morning. Take before meals. 30 tablet 2 02/17/2024 02/16/2025 Active take 1 tablet by mouth in the mo rning levothyroxine (Tirosint) 100 MCG capsule Take 1 tablet by mouth in the morning. 0 Active Levothyroxine So dium 100 MCG Orally Active montelukast 10 mg oral tablet (8 sources) Leukotriene Receptor Antagonist Start: 10-15-2022 montelukast (Singulair) 10 MG tablet 10/15/2022 Active Omeprazole (1 source) Proton Pump Inhibitor Omeprazole Active rosuvastatin calcium 40 mg oral tablet (9 sources) HMG-CoA Reductase Inhibitor Start: 11-19-2023 End: 08-09-2024 take 1 tablet by mouth once daily rosuvastatin (Crestor) 40 MG tablet Indications: Hyperlipidemia, unspecified hyperlipidemia type (CMS/HCC) Take 1 tablet (40 mg) by mouth Daily 90 tablet 1 02/11/2024 08/09/2024 Active Start: 10-28-2022 rosuvastatin ( Crestor) 10 MG tablet sulfamethoxazole 800 mg / trimethoprim 160 mg oral tablet (1 source) Dihydrofolate Reductase Inhibitor Antibacterial, Sulfonamide Antimicrobial Start: 11-26-2021 take 1 tablet by mouth every twelve hours Bactrim DS 800-160 MG 1 tablet Orally Twice a day for 7 day(s) Nov, Active Problems Active Problems Problem Classification Problem Date Documented Date Episodic/Chronic Cataract (6 sources) After-cataract of bilateral eyes; Translations: [Other secondary cataract, bilateral] Onset: 11-08-2023 11-08-2023 Chronic Diabetes mellitus without complication (6 sources) Prediabetes; Translations: [Prediabetes] Onset: 12-19-2023 12-19-2023 Episodic Disorders of lipid metabolism (14 sources) Hyperlipidemia, unspecified; Translations: [Hypertriglyceridemia ] Onset: 07-07-2022 11-18-2023 Chronic Neoplasms of unspecified nature or uncertain behavior (2 sources) Neoplasm of uncertain behavior of skin; Translations: [Neoplasm of uncertain behavior of skin] 02-13-2024 Episodic Osteoarthritis (1 source) Arthritis of first carpometacarpal joint of right hand; Translations: [Unilateral primary osteoarthritis of first carpometacarpal joint, right hand] 05-24-2023 Chronic Other connective tissue disease (1 source) Pain in right hand; Translations: [Pain in right hand] 05-24-2023 Episodic Other connective tissue disease (2 sources) Plantar fasciitis; Translations: [Plantar fascial fibromatosis] 02-13-2024 Episodic Other connective tissue disease (2 sources) Pain in right foot; Translations: [Pain in right foot] 02-13-2024 Episodic Other ear and sense organ disorders (6 sources) Impacted cerumen in left ear; Translations: [Impacted cerumen, left ear] Onset: 12-19-2023 12-19-2023 Episodic Retinal detachments; defects; vascular occlusion; and retinopathy (12 sources) Bilateral epiretinal membrane of eyes; Translations: [Puckering of macula, bilateral] Onset: 11-08-2023 11-08-2023 Chronic Thyroid disorders (13 sources) Hypothyroidism, unspecified; Translations: [Hypothyroidism] Onset: 02-06-2022 Chronic Unclassified (3 sources) LOW BACK PAIN, UNSPECIFIED; Translations: [LOW BACK PAIN, UNSPECIFIED] Onset: 07-07-2022 Viral infection (2 sources) Verruca plantaris; Translations: [Plantar wart] 02-13-2024 Episodic Past or Other Problems Problem Classification Problem Date Documented Da te Episodic/Chronic Genitourinary symptoms and ill-defined conditions (1 source) Dysuria Onset: 11-26-2021 Resolved: 11-26-2021 Episodic Other eye disorders (6 sources) Dry eyes; Translations: [Dry eye syndrome of bilateral lacrimal glands] Onset: 11-08-2023 11-08-2023 Episodic Other screening for suspected conditions (not [...] PAIN, UNSPECIFIED] Onset: 07-03-2022 Urinary tract infections (7 sources) Acute cystitis with hematuria; Translations: [Cystitis] Onset: 11-26-2021 Resolved: 11-26-2021 Episodic Results Test Name Value Interpretation Reference Range Facility TSH W/REFLEX T4on 01-22-2024 TSH Qn 0.892 m[IU]/L [facility] Health care [facility] Health[facility] Office Visiton 12-04-2023 Follow-up visit [id number] Bertha Galarza 1950 F Date Provider Department Center 12/04/2023 3848-ANN JARRETT [facility] Family History Problem Relation Age of Onset Coronary artery disease Mother Coronary artery disease Sister Coronary artery disease Brother Family Status - Relation Status Age at Mother Sister Brother Level of Service:04445 LA OFFICE/OUTPATIENT NEW LOW MDM 30 MINUTES Normal [facility] US CAROTID ARTERY DUPLE X BILATERALon 11-20-2023 [facility] US CAROTID ARTERY DUPLEX BILATERAL EXAM: Carotid [...] report is generated using voice recognition reporting (pic5). On occasion [employer] erroneously drops words from the report or replaces the spoken word with similar sounding words. Please call with any questions/concerns regarding this report.* Dictated and transcribed 11/25/23/dpd This report has been electronically signed and approved by the interpreting radiologist. Electronically Signed Tito Riddle M.D. 2023-11-25 14:40:34 Normal Not Available DIRECT LDLon 07-03-2022 Cholesterol in LDL [Mass/Vol] 174 mg/dL Normal [facility] Comment on above: Performed By: #### D LDL, LIPID, TSH #### [facility] [address] [place] [address] Dr. Radha Farris DLDL NORMAL SEE BELOW Normal [facility] Comment on above: Result Comment: <100 mg/dl OPTIMAL 100 - 129 mg/dl NEAR OR ABOVE OPTIMAL 130 - 159 mg/dl BORDERLINE HIGH 160 - 189 mg/dl HIGH >190 mg/dl VERY HIGH Performed By: #### D LDL, LIPID, TSH #### [facility] [address] [place] [address] [address] Radha Farris LIPID PROFILEon 07-03-2022 CHOL-HDL RATIO NORM SEE BELOW Normal [facility] Comment on above: Result Comment: 3.3 - 4.4 LOW RISK 4.4 - 7.1 AVERAGE RISK 7.1 - 11.0 MODERATE RISK >11.0 HIGH RISK Performed By: #### D LDL, LIPID, TSH #### [facility] [address] [address] [address] Radha Farris Cholesterol [Mass/Vol] 395 mg/dL Critically high <=200 [facility] Comment on above: Performed By: #### D LDL, LIPID, TSH #### [facility] [address] [address] [address] Radha Farris Cholesterol in HDL [Mass/Vol] 35 mg/dL Critically low 40-60 [facility] Comment on above: Performed By: #### D LDL, LIPID, TSH #### [facility] [address] [address] [address] Radha Farris Cholesterol.total/C holesterol in HDL [Mass ratio] 11.3 {ratio} Normal [facility] Comment on above: Performed By: #### D LDL, LIPID, TSH #### [facility] [address] [address] [address] Radha Farris HDL NORMAL > or = 60 mg/dl - LO W CARDIOVASCULAR RISK <40 mg/dl - HIGH CARDIOVASCULAR RISK Normal [facility] Comment on above: Performed By: #### D LDL, LIPID, TSH #### [facility] [address] [address] [address] Radha Farris Triglyceride [Mass/Vol] 935 mg/dL Critically high <=150 [facility] Comment on above: Performed By: #### D LDL, LIPID, TSH #### [facility] [address] [place], [place] [address] Dr. Radha Farris TSHon 07-03-2022 TSH 0.906 uIU/mL Normal 0.358-3.740 [facility] Comment on above: Performed By: #### D LDL, LIPID, TSH #### [facility] [address] [place], [place] [address] Dr. Radha Farris XR LSPINE 2_3 VIEWSon [...] by: KARI DIOP Date: 2022-07-03 13:22 Normal [facility] MAMM SCREEN 3D RABIA CADon 03-29-2022 MG MAMM SCREEN 3D RABIA CAD Patient: BERTHA GALARZA Exam Date: 03/29/2022 : 1950 Gender:F Ordering : DR JOSE DAVID GODWIN D.O. Admission #: [id number] Family : Order #: [id number] CLICK HERE TO VIEW EXAM RADIOLOGY REPORT [...] colon cancer at age 55. LOCATION: [facility] BREAST COMPOSITION: Scattered areas fibroglandular density. FINDINGS: [...] MD on 03/29/2022 at 13:23 Normal [facility] T4on 02-06-2022 T4 [Mass/Vol] 9.60 ug/dL Normal 4.80-13.90 [facility] Comment on above: Performed By: #### T 4, TSH #### [facility] [address] [address] [address] Radha Farris TSHon 02-06-2022 TSH 0.188 uIU/mL Critically low 0.358-3.740 [facility] Comment on above: Performed By: #### T 4, TSH #### [facility] [address] [address] [address] Radha Farris Urine culture routineOrdered By: Yuliet Perez on 11-29-2021 Bacteria identified Cx Nom (U) Escherichia coli [facility] Urinalysis - AUTOMATEDon Appearance (U) clowdy [employer] Other Bilirubin Ql (U) Negative [employer] Other Color (U) yellow [email or web address] Other Glucose Ql (U) Negative [facility] Other Hemoglobin Ql (U) small [employer] Other Ketones Ql (U) Negative [employer] Other Leukocyte esterase Test strip Ql (U) large [email or web address] Other Nitrite Ql (U) Negative [employer] Other pH (U) 6.0 [pH] [email or web address] Other Protein Ql (U) 30 [employer] Other Specific gravity (U) [Rel density] 1.020 [email or web address] Other Urobilinogen (U) [Mass/Vol] 0.2 mg/dL [email or web address] Other Urinalysis - AUTOMATED [email or web address] Other Urine Cultureon 11-26-2021 Urine Culture 20,000 [email or web address] Other Urine Culture <16 Susceptible INDOM Other Urine Culture <8 Susceptible INDOM Other Urine Culture <4 Susceptible INDOM Other Urine Culture <2 Susceptible INDOM Other Urine Culture <1 Susceptible INDOM Other Urine Culture <0.5 Susceptible [employer] Other Urine Culture <32 Susceptible [facility]DOM Other Urine Culture <2/38 Susceptible [facility]DOM Other Bacteria identified Cx Nom (U) ORGANISM: Escherichia coli (O:ESCCOL) Acton Count 20,000 Aerobic ALMA Charge (NUC86) ---- [...] RESISTANT TO ALL B-LACTAM DRUGS. PERFORMED BY: [place] [address] PATHOLOGIST FIRE HYDRANT OPERATOR JONATHAN PHAN M.D. [facility] Comment on above: Performed By: #### C UU #### [address] chest w conon 09-13-2021 CT chest w [facility] [place] [address] [place] [address] CT Scan Report Signed Patient: Bertha Galarza MR#: [id number] : 1950 Acct:[id number] Age/Sex: 71 / F ADM Date: 09/13/21 Loc: [facility] Room: Type: [facility] Attending Dr: Jose David Godwin DO Ordering [...] mass seen with facet chest x-ray at [facility]. COMPARISON: 08/29/2021 plain film chest The thyroid [...] Nehemias Rasheed M.D.09/13/2021 1:21 PM Dictation Location: [place] [address] Transcribed By: [facility] 09/13/21 1321 Dictated By: Nehemias Rasheed DO 09/13/21 1310 Signed By: 09/13/21 1321 Normal [facility] ISTAT XRay CREon 09-13-2021 Creatinine [Mass/Vol] 0.6 mg/dL Normal 0.6-1.3 [facility] Comment on above: Result Comment: ER/E SD physician is notified/shown all ISTAT results. Critical values may be confirmed by laboratory testing if deemed necessary by ER attending doctor. Performed By: #### I SCRE #### [facility] [address] [place] [address] Point of Care testing , ISTAT GFR ( > 60 Normal [facility] Comment on above: Result Comment: GFR estimated reference range: According to KDOQI guidelines, <60 ml/min/1.73m2 is sufficient to diagnose a patient with chronic kidney disease. PERFORMED BY: [place] [address] PATHOLOGIST FIRE HYDRANT OPERATOR JONATHAN PHAN M.D. Performed By: #### I SCRE #### [facility] [address] [place] [address] Point of Care testing , ISTAT GFR (Non- Am > 60 Normal [facility] Comment on above: Performed By: #### I SCRE #### [address] Point of Care testing , Vital Signs Date Time Vital Sign Value Performing Clinician Facility 02-13-2024 13:56-0400 Body height 167.6 cm Ben Marti DPM Work Phone: [facility] 02-13-2024 13:56-0400 Body mass index (BMI) [Ratio] 32.28 kg/m2 Ben Marti DPM Work Phone: [facility] 02-13-2024 13:56-0400 Body weight 90.72 kg Ben Marti DPM Work Phone: [facility] 02-13-2024 13:56-0400 Diastolic blood pressure 80 mm[Hg] Ben Marti DPM Work Phone: [facility] 02-13-2024 13:56-0400 Heart rate 78 /min Ben Marti DPM Work Phone: [facility] 02-13-2024 13:56-0400 Systolic blood pressure 129 mm[Hg] Bne Marti DPM Work Phone: [facility] 11-26-2021 11:15-0400 Body height 167.64 cm Yuliet Perez Other [email or web address] Other 11-26-2021 11:15-0400 Body mass index (BMI) [Ratio] 30.66 kg/m2 Yuliet Perez Other [email or web address] Other 11-26-2021 11:15-0400 Body temperature 98 [degF] Yuliet Perez Other [email or web address] Other 11-26-2021 11:15-0400 Body weight 86.18 kg Yuliet Perez Other [email or web address] Other 11-26-2021 11:15-0400 Diastolic blood pressure 61 mm[Hg] Yuliet Perez Other [email or web address] Other 11-26-2021 11:15-0400 SaO2% (BldA) [Mass fraction] 98 % Yuliet Perez Other [email or web address] Other 11-26-2021 11:15-0400 Systolic blood pressure 117 mm[Hg] Yuliet Perez Other [email or web address] Other Encounters Encounter Date Encounter Type Care Provider Facility Start: 02-17-2024 End: 02-17-2024 Refill Lynsey Ortiz PHLEBOTOMIST Work Phone: [facility] Comment on above: Hypothyroidism, unsp ecified type (CMS/HCC) Start: 02-13-2024 End: 02-13-2024 Bamboo flowsheet Ben Marti DPM Work Phone: [facility] Start: 02-13-2024 End: 02-13-2024 Bamboo flowsheet Ben Marti DPM Work Phone: [facility] Start: 02-13-2024 End: 02-13-2024 ambulatory BEN MARTI Not Available Start: 02-13-2024 End: 02-13-2024 Office outpatient new 30 minutes Ben Marti DPM Work Phone: [facility] Comment on above: Plantar fasciitis (P rimary Dx); Verruca plantaris; Neoplasm of uncertain behavior of skin; Foot pain, right Start: 02-11-2024 End: 02-11-2024 Refill Lynsey Ortiz PHLEBOTOMIST Work Phone: [facility] Comment on above: Hyperlipidemia, unsp ecified hyperlipidemia type (CMS/HCC); Hypothyroidism, unspecified type (CMS/HCC) Start: 01-22-2024 End: 01-22-2024 Clinisync Result Encounter Lynsey Ortiz PHLEBOTOMIST Work Phone: [facility] Unsolicited Start: 01-22-2024 End: 01-22-2024 Clinisync Result Encounter Lynsey Ortiz PHLEBOTOMIST Work Phone: [facility] Unsolicited Start: 12-19-2023 End: 12-19-2023 ambulatory LYNSEY ORTIZ Not Available Start: 12-04-2023 End: 12-04-2023 ambulatory ANN [facility] Start: 11-20-2023 End: 11-20-2023 ambulatory LYNSEY ORTIZ Not Available Start: 11-18-2023 End: 11-18-2023 ambulatory LYNSEY ORTIZ Not Available Start: 11-08-2023 End: 11-08-2023 ambulatory DANDY CAMPOS Not Available Start: 10-22-2023 End: 10-22-2023 ambulatory AME HONG Not Available Start: 09-03-2023 End: 09-03-2023 ambulatory SHAIKH RASHIDDAVID Not Available Start: 05-24-2023 Chart abstracting Ame castillo PA Work Phone: [facility] Start: 05-24-2023 End: 05-24-2023 Postop follow up visit related to original px Ame ROA Work Phone: [facility] Comment on above: S/P carpal tunnel [...] 11-26-2021 End: 11-26-2021 ambulatory Yuliet Perez Other [facility] [employer] Other Start: 11-26-2021 Office outpatient ne w 20 minutes Yuliet Perez [facility] [place] Start: 11-26-2021 End: 11-26-2021 Departed Referred DO Jose David Godwin Work Phone: [facility] [place] Start: 09-13-2021 End: 09-13-2021 Patient encounter procedure DO Jose David Godwin Work Phone: [facility] [address] Procedures Date Procedure Procedure Detail Performing Clinician Start: 01-22-2024 TSH W/REFLEX T4 Lynsey Ortiz PHLEBOTOMIST Work Phone: Start: 04-01-2023 Mammography Ame Hong PA Work Phone: Start: 11-26-2021 Piperacillin/tazobactam Yluiet Perez Other Start: 09-13-2021 CT of thorax with contrast DO Jose David Godwin Work Phone: History of decompres tatum of median nerve S/P carpal tunnel release Ame Hong PA Work Phone: Urine culture DO [facility] Work Phone: Plan of Treatment Date Care Activity Detail Author Start: 10-20-2025 End: 10-20-2025 Patient encounter procedure 10/20/2025 11:00 AM EDT Office Visit [facility] [address] [place] [address] Ame Hong PA [address] [place] [address] [facility] Start: 05-25-2024 End: 05-25-2024 Patient encounter procedure 05/25/2024 1:15 PM EST Office Visit [facility] [address] [place] [phone] Dandy Campos, [address] [place] [address] [facility] Start: 04-01-2024 Screening for malignant neoplasm of breast Mammogram [facility] Start: 03-23-2024 End: 03-23-2024 Patient encounter procedure 03/23/2024 2:05 PM EST Office Visit [facility] [address] [place] [phone] Shira Zimmer MD [address] [place] [address] [facility] Start: 02-27-2024 End: 02-27-2024 Patient encounter procedure 02/27/2024 11:00 AM EST Office Visit [facility] [address] [place] [phone] Lynsey Ortiz NP [address] [place] [phone] [facility] Start: 02-20-2024 Medicare Annual Wellness (AWV) Medicare Annual Wellness (AWV) [facility] Start: 02-13-2024 End: 02-13-2024 Patient encounter procedure 02/13/2024 1:50 PM EDT Office Visit [facility] [address] [place] [phone] Ben Marti DPM [address] [facility] [address] [place] [address] [facility] Start: 12-15-2023 Influenza vaccination Influenza Vaccine (#1) [facility] Start: 10-11-2023 End: 10-11-2023 Patient encounter procedure 10/11/2023 10:30 AM EDT Office Visit [facility] [address] [facility] [address] [place] [address] Ame Hong PA [address] [facility] [address] [place] [address] [facility] Start: 05-24-2023 End: 05-24-2023 Patient encounter procedure 05/24/2023 10:30 AM EST Office Visit [facility] [address] [facility] [address] [place] [address] Ame Hong PA [address] [facility] [address] [place] [address] [facility] Start: 1950 Screening for malignant neoplasm of colon [facility] XR Hand - right 3 Views XR hand 3+ views right Imaging Routine Right hand pain 05/24/2023 10:32 AM EST [facility] Work Phone: Immunizations Immunization Date Immunization Notes Care Provider [facility] 02-13-2023 influenza virus vaccine, unspecified formulation Lynsey Ortiz NP Work Phone: [facility] Payers Date Payer Category Payer Medicare [facility] MEDICARE ADVANTAGE ASH MEDICARE ADVANTAGE [id number] 2021-Present [address] [place] [address] [id number] 2021 Medicare (Managed Care) [facility] ADVANTAGE [id number] 1959 Medicare [id number] 1950 Unknown [id number] 2.16.840.1.070978.3.579. 2.593 1950 Unknown [id number] 2.16.840.1.625751.3.579. 2.593 1950 Unknown [id number] 2.16.840.1.353283.3.579. 2.593 1950 Unknown [id number] 2.16.840.1.445461.3.579. 2.1259 1950 Unknown [id number] 2.16.840.1.043826.3.579. 2.1259 1950 Unknown [id number] 2.16.840.1.726208.3.579. 2.1259 1950 Unknown [id number] 2.16.840.1.381244.3.579. 2.1259 1950 Unknown [id number] 2.16.840.1.283164.3.579. 2.1259 1950 Unknown [id number] 2.16.840.1.543435.3.579. 2.1259 1950 Unknown [id number] 2.16.840.1.171658.3.579. 2.1259 1950 Unknown [id number] 2.16.840.1.733621.3.579. 2.1259 1950 Unknown [id number] 2.16.840.1.602922.3.579. 2.1259 1950 Unknown [id number] 2.16.840.1.153838.3.579. 2.1259 1950 Unknown [id number] 2.16.840.1.697102.3.579. 2.1259 1950 Unknown [id number] 2.16.840.1.679158.3.579. 2.1259 1950 Unknown [id number] 2.16.840.1.994689.3.579. 2.1259 1950 Unknown [id number] 2.16.840.1.739204.3.579. 2.1259 1950 Unknown [id number] 2.16.840.1.968046.3.579. 2.1259 Self-pay Self Pay [id number] Unknown [place] BC/BS 1 [id number] Unknown [id number] (STD) [id number] Social History Date Type Detail Facility Tobacco smoking stat us [facility] Unknown if ever smoked [facility] Work Phone: Start: 1950 Sex Assigned At Female F [facility] Start: 03-29-2023 End: 11-12-2023 Sex Assigned At [facility] Start: 07-28-1973 End: 11-08-2023 Tobacco smoking status OKIS Smokes tobacco daily [facility] Start: 07-28-1973 History of tobacco use Cigarette Smo ker [facility] Start: 11-07-2022 End: 11-08-2023 Tobacco use and exposure Smokeless tobacco non-user [facility] Start: 05-03-2023 End: 02-13-2024 Alcohol intake Lifetime non-drinker (finding) [facility] Start: 03-29-2023 End: 11-12-2023 History of Social function [facility] Start: 1950 Sex Assigned At Not on file [facility] History of tobacco use Passive smoker [facility] How often do you nee d to have someone help you when you read instructions, pamphlets, or other written material from your doctor or pharmacy [SILS] Rarely [facility] Do you belong to any clubs or organizations such as roman catholic groups, unions, fraternal or athletic groups, or school groups? No [facility] Are you now , , , , never or living with a partner? [facility] Do you feel stress - tense, restless, nervous, or anxious, or unable to sleep at night because your mind is troubled all the time - these days [OSQ] Not at all [facility] (I/We) worried wheth er (my/our) food would run out before (I/we) got money to buy more. Never true [facility] History of Present illness Narrative 02-13-2024 Ben Marti, ASAD - 02/13/2024 1:50 PM EDT Note Date & Type Note Facility 02-13-2024 History of Presen t illness Narrative Patient: Bertha Cannonbryon : 1950 PCP: Moustapha De Leon MD SUBJECTIVE This is a 73 y.o. female that presents today for a chief complaint of pain to the right lateral plantar foot. Patient states lesion present for the past few months since painful and present to lateral right foot Patient states pain 7/10 Patient also presents today for mid arch around the plantar fascia on height of the arch left foot particularly prolonged standing and has tried different inserts as well as NSAIDs negative improvement. Rates pain an 8/10 Allergies: Allergies Allergen Reactions Penicillins Hives, Itching and Rash Past Medical History: Past Medical History: Diagnosis Date Actinic keratosis Cancer ([facility]/HCC) [id number] Cataract Dry eyes Family history of thyroid problem High cholesterol (CMS/[facility]) Hx of breast cancer 2006 Personal history of other medical treatment thyroid Medications: Current Outpatient Medications: fluticasone (Flonase) 50 MCG/ACT nasal spray, Administer 1 spray into affected nostril(s) in the morning., Disp: , Rfl: levothyroxine (Synthroid) 75 MCG tablet, Take 1 tablet (75 mcg) by mouth in the morning. Take before meals., Disp: 30 tablet, Rfl: 2 montelukast (Singulair) 10 MG tablet, , Disp: , Rfl: rosuvastatin (Crestor) 40 MG tablet, Take 1 tablet (40 mg) by mouth Daily, Disp: 90 tablet, Rfl: 1 Social History: Social History Socioeconomic History Marital status: Spouse name: Not on file Number of children: Not on file Years of education: Not on file Highest education level: Not on file Occupational History Not on file Tobacco Use Smoking status: Every Day Current packs/day: 1.00 Average packs/day: 1 pack/day for 50.5 years (50.5 ttl pk-yrs) Types: Cigarettes Start date: 07/28/1973 Passive exposure: Current Smokeless tobacco: Never Vaping Use Vaping status: Never Used Substance and Sexual Activity Alcohol use: Never Drug use: Never Sexual activity: Defer Other Topics Concern Not on file Social History Narrative Not on file Social Drivers of Health Financial Resource Strain: Low Risk (11/12/2023) Overall Financial Resource Strain (CARDIA) Difficulty of Paying Living Expenses: Not hard at all Food Insecurity: No Food Insecurity (11/12/2023) Hunger Vital Sign Worried About Running Out of Food in the Last Year: Never true Ran Out of Food in the Last Year: Never true Transportation Needs: No Transportation Needs (11/12/2023) PRAPARE - Transportation Lack of Transportation (Medical): No Lack of Transportation (Non-Medical): No Physical Activity: Inactive (11/12/2023) Exercise Vital Sign Days of Exercise per Week: 0 days Minutes of Exercise per Session: 0 min Stress: No Stress Concern Present (11/12/2023) [employer] - Occupational Stress Questionnaire Feeling of Stress : Not at all Social Connections: Unknown (11/12/2023) Social Connection and Isolation Panel [NHANES] Frequency of Communication with Friends and Family: Once a week Frequency of Social Gatherings with Friends and Family: Once a week Attends L[employer] Services: Patient declined Active Member of Clubs or Organizations: No Attends Club or Organization Meetings: Never Marital Status: Intimate Partner Violence: Not on file Housing Stability: Unknown (11/12/2023) Housing Stability Vital Sign Unable to Pay for Housing in the Last Year: No Number of Times Moved in the Last Year: Not on file Homeless in the Last Year: No ROS: General: denies fever, chills, fatigue, malaise Gastrointestinal: denies abdominal pain, ulcers, or changes in appetite or bowel habits Musculoskeletal: positive total knee replacement to the left with positive history of generalized osteoarthritis, denies loss of strength, pain to hip, knees, back Cardiovascular: denies CP, palpitations, irregular rhythms OBJECTIVE LE EXAM: DERM: Positive hair growth to b/l feet with good skin turgor noted. Negative openings in skin. Nummular lesion measuring at the right sub 5th metatarsal region measuring 0.2 cm x 0.2 cm. VASC: Palpable pedal pulsed b/l with warm to cool tibia to toes b/l NEURO: Gross sensation intact digits 1-10 and b/l feet ORTHO: +5/5 DF/PF/IN/EV right, +5/5 DF/PF/IN/EV left. 20 degrees inversion and 10 degrees eversion STJ b/l. Ankle ROM less than 10 degrees b/l. Positive pain on palpation to right foot lesion Positive palpation left and right mid arch region along plantar fascial bands XRAY: US: ASSESSMENT 1. Plantar fasciitis 2. Verruca plantaris 3. Neoplasm of uncertain behavior of skin 4. Foot pain, right PLAN Discussed condition in detail with patient today and discussed conservative treatments and possible excisional biopsy of lesion in the future for pathological diagnosis of specimen. Patient may take [id number] NSAID p.r.n. for pain Application of salinocaine acid medication to lesion/lesions located at right foot Informed pt of risks and benefits of procedure including high reoccurence rate, infection, pain and consent given. Application of DSD post procedure. Patient to continue with oral anti - inflammatories as needed for pain and recommended OTC medications such as tylenol or Ibuprofen Discussed accommodative custom inserts and [id number] cost has not covered by insurance patient may consider in the future but did recommend [id number]-[id number] inserts at this time Ben Marti DPM documented in this encounter [facility] Progress note 12-04-2023 Note Date & Type [...] or concerns. Ann Jarrett MD Interventional Cardiology [facility] History of Present illness Narrative 05-24-2023 JANINA [...] is normal. Strength additional comments: 5/5 [facility] [employer] Neurovascular Right Right neurovascular exam is [...] evaluation. JANINA Jackson documented in this encounter [facility] Evaluation note 11-26-2021 Note Date & [...] understanding and is agreeable to treatment plan [email or web address] Other Evaluation note Note Date & Type Note Facility Evaluation note [facility]: Evaluation note Note Date & Type Note Facility Evaluation note Diagnosis S/P carpal tunnel release- Primary Other postprocedural status Right hand pain Pain in soft tissues of limb Arthritis of carpometacarpal (CMC) joint of right thumb documented in this encounter [facility] Evaluation note Note Date & Type Note Facility Evaluation note Diagnosis Hypertriglyceridemia (CMS/HCC)- Primary Pure hyperglyceridemia Bilateral posterior capsular opacification Unspecified after-cataract Hollenhorst plaque, 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 Mixed hyperlipidemia (CMS/HCC) Mixed hyperlipidemia Short of breath on exertion Chest heaviness Other chest pain Prediabetes- Primary Other abnormal glucose Hypertriglyceridemia (CMS/HCC) Pure hyperglyceridemia Hypothyroidism, unspecified type (CMS/HCC) Impacted cerumen of left ear Impacted cerumen Hyperlipidemia, unspecified hyperlipidemia type (CMS/HCC) Hypothyroidism, unspecified type (CMS/HCC) documented in this encounter [facility] Evaluation note Note Date & Type Note Facility Evaluation note Diagnosis Hypertriglyceridemia (CMS/HCC)- Primary Pure hyperglyceridemia Bilateral posterior capsular opacification Unspecified after-cataract Hollenhorst plaque, 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 Mixed hyperlipidemia (CMS/HCC) Mixed hyperlipidemia Short of breath on exertion Chest heaviness Other chest pain Prediabetes- Primary Other abnormal glucose Hypertriglyceridemia (CMS/HCC) Pure hyperglyceridemia Hypothyroidism, unspecified type (CMS/HCC) Impacted cerumen of left ear Impacted cerumen Plantar fasciitis- Primary Plantar fascial fibromatosis Verruca plantaris Plantar wart Neoplasm of uncertain behavior of skin Foot pain, right Pain in soft tissues of limb documented in this encounter [facility] Evaluation note Note Date & Type Note Facility Evaluation note Diagnosis Hypertriglyceridemia (CMS/HCC)- Primary Pure hyperglyceridemia Bilateral posterior capsular opacification Unspecified after-cataract Hollenhorst plaque, 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 Mixed hyperlipidemia (CMS/HCC) Mixed hyperlipidemia Short of breath on exertion Chest heaviness Other chest pain Prediabetes- Primary Other abnormal glucose Hypertriglyceridemia (CMS/HCC) Pure hyperglyceridemia Hypothyroidism, unspecified type (CMS/HCC) Impacted cerumen of left ear Impacted cerumen Hypothyroidism, unspecified type (CMS/HCC) documented in this encounter [facility] History [...] knee replacement 10/04 Hospitalization History see above [email or web address] Other Chief Complaint and Reason for Visit Chief Complaint lung mass Chief Complaint R30.0 Advance Directives Advance Directive Response Recorded Date/ Time Advance [...] Active Yuliet Perez APRN Attending Provider Active Relationship Executive Relationship Specialty Start Date End Date Jose David Godwin MD [address] [place] [address] PCP - General Family Medicine 10/11/22 Relationship Executive Relationship Specialty Start Date End Date Jose David Godwin MD [address] [place] [address] PCP - General Family Medicine 10/11/22 Relationship Executive Relationship Specialty Start Date End Date Moustapha De Leon MD [address] [place] [phone] PCP - General Family Medicine 11/08/23 Stephanie Peters, HORACE [address] [place] [address] Referring Physician Optometry 11/08/23 Lynsey Ortiz NP [address] [place] [phone] Nurse Practitioner Family Medicine 11/13/23 Relationship Executive Relationship Specialty Start Date End Date Moustapha De Leon MD [address] [place] [phone] PCP - General Family Medicine 11/08/23 Stephanie Peters, HORACE [address] [place] [address] Referring Physician Optometry 11/08/23 Lynsey Ortiz NP [address] [place] [address] Nurse Practitioner Family Medicine 11/13/23 Relationship Executive Relationship Specialty Start Date End Date Moustapha De Leon MD [address] [place] [phone] PCP - General Family Medicine 11/08/23 Stephanie Peters OD [address] [place] [address] Referring Physician Optometry 11/08/23 Lynsey Ortiz NP [address] [place] [address] Nurse Practitioner Family Medicine 11/13/23 Relationship Executive Relationship Specialty Start Date End Date Moustapha De Leon MD [address] [place] [phone] PCP - General Family Medicine 11/08/23 Stephanie Peters OD [address] [place] [address] Referring Physician Optometry 11/08/23 Lynsey Ortiz NP [address] [place] [address] Nurse Practitioner Family Medicine 11/13/23 Relationship Executive Relationship Specialty Start Date End Date Moustapha De Leon MD [address] [place] [phone] PCP - General Family Medicine 11/08/23 Stephanie Peters OD [address] [place] [address] Referring Physician Optometry 11/08/23 Lynsey Ortiz NP [address] [facility] [place] [phone] Nurse Practitioner Family Medicine 11/13/23 Goals (unrecognized section and content) Goals may be documented in a n alternate sectionNo InformationGoals may be documented in an alternate section REASON FOR VISIT (unrecogniz ed section and content) Reason Comments Pain Reason Onset Date Comments Med Refill 02/11/2024 Reason Comments Foot Pain B/L foot pain Reason Onset Date Comments Med Refill 02/17/2024 INFORMATION SOURCE (unrecogn ized section and content) DATE CREATED AUTHOR 12/05/2021 [facility] DATE CREATED AUTHOR AUTHOR'S ORGANIZ ATION 07/08/2022 [facility] DATE CREATED AUTHOR AUTHOR'S ORGANIZ ATION 01/08/2024 [facility] DATE CREATED AUTHOR AUTHOR'S ORGANIZ ATION 02/15/2024 [facility] EPIC FOR RECORDS PERTAINING TO PATIENTS [...] BE BASED ON THE PRIMARY CLINICAL RECORDS. [employer] provides no warranty or guarantee of the accuracy or completeness of information in this document.
[2024-02-18 13:40] LABS: Chol HDL Ratio 3.3; Cholesterol 160 mg/dL (<=200); HDL Cholesterol 49 mg/dL (40-60); Triglycerides 313 mg/dL (<=150); VLDL CHOLESTEROL 62.6 mg/dL
== END 2024-02-18 11:15 | disposition home or self-care (01) ==
LOC: LAB 11:15
DX: E78.1 Pure hyperglyceridemia (principal); E78.2 Mixed hyperlipidemia; E78.5 Hyperlipidemia, unspecified
CPT/HCPCS: 36415; 80061

== ENCOUNTER 2024-03-19 07:46 | Outpatient (OUT) | payer MEDICARE, SELFPAY ==
--- OUTSIDE RECORDS SUMMARY | 2024-03-19 07:50 | XMS_ITS | CCD ---
Author Organization [facility] Care Team Providers Care Target Aircraft Technician Name Role Phone DO Jose David Godwin Primary Care Provider [phone] DO Jose David Godwin Attending Provider [phone] DO Trixie Gr Jr Other Provider Yuliet Perez Unavailable DO Jose David Godwin Primary Care Provider LUANN Perez Attending Provider SHAIKH Lorelei ENGEL Admitting Unavailable SHAIKH Lorelei ENGEL Attending Unavailable SHAIKH Lorelei ENGEL Primary Care Unavailable CHIKIS, DR KARI Stern Consulting Unavailable SHAIKH Lorelei ENGEL Consulting Unavailable CITLALI, DR GARDINER Admitting Unavailable LITTLEROCK, DR GARDINER Attending Unavailable LITTLEROCK, DR GARDINER Primary Care Unavailable LITTLEROCK, DR GARDINER Consulting Unavailable LITTLEROCK, DR GARDINER Admitting Unavailable LITTLEROCK, DR GARDINER Attending Unavailable LITTLEROCK, DR GARDINER Primary Care Unavailable DAYTON, DR KARI Stern Consulting Unavailable LITTLEROCK, DR GARDINER Consulting Unavailable Jose David Godwin MD Primary Care Provider ANN JARRETT Attending Unavailable Stephanie Peters OD Unavailable Moustapha De Leon MD Primary Care Provider Lynsey Ortiz NP Unavailable [phone] AME HONG Attending Unavailable AME HONG Attending Unavailable SHIRA ZIMMER Attending Unavailable AME HONG Attending Unavailable AME HONG Referring Unavailable SHAIKH ENGEL Attending Unavailable JR. GR GEORGE C Attending Unavaila AME Vigil Attending Unavailable AME HONG Attending Unavailable AME HONG Referring Unavailable DANDY CAMPOS Attending LYNSEY Ellington Attending LYNSEY Sewell Referring LYNSEY Sewell Attending BEN Boothe Attending LYNSEY Ellington Attending Alivia monson Allergies Allergy Classification Reported Allergen(s) Allergy Type Date of Onset Reaction(s) Facility (1 source) Penicillin G Drug Allergy rash [facility] Other (1 source) Penicillin Drug Allergy 0 [facility] Repository (14 sources) Penicillins; Translations: [PENICILLINS] Drug Allergy 3 Hives, Itching, Rash [facility] (1 source) atorvastatin; Translations: [ATORVASTATIN] Drug Allergy 4 [facility] Repository Medications Current Medications Medication Drug Class(es) Dates Sig (Normalized) Sig (Original) aspirin 81 mg delayed release oral tablet (2 sources) Platelet Aggregation Inhibitor, Nonsteroidal Anti-inflammatory Drug take 1 tablet by mouth once daily aspirin 81 MG EC tablet Take 81 mg by mouth Daily Active docosahexaenoic acid 120 mg / eicosapentaenoic acid 180 mg oral capsule (4 sources) Start: 02-24-2024 End: 02-23-2025 take 1 capsule by mouth at bedtime fish oil concentrate ([place]-3) 1000 MG capsule Indications: Mixed hyperlipidemia (CMS/HCC) Take 2 capsules (2 g) by mouth in the morning and 2 capsules (2 g) before bedtime. 120 capsule 2 02/24/2024 02/23/2025 Active levothyroxine sodium 0.075 mg oral tablet (16 sources) l-Thyroxine Start: 11-21-2023 End: 02-16-2025 take [...] Orally Active montelukast 10 mg oral tablet (13 sources) Leukotriene Receptor Antagonist Start: 10-15-2022 montelukast (Singulair) 10 MG tablet 10/15/2022 Active Omeprazole (1 source) Proton Pump Inhibitor Omeprazole Active rosuvastatin calcium 40 mg oral tablet (14 sources) HMG-CoA Reductase Inhibitor Start: 11-19-2023 End: [...] a day for 7 day(s) Nov, Active Completed/Discontinued Medications Medication Drug Class(es) Dates Sig (Normalized) Sig (Original) fluticasone propionate 0.05 mg/actuat metered dose nasal spray (14 sources) Corticosteroid Start: 06-20-2022 End: 03-01-2024 take 1 spray(s) nasal route in the morning fluticasone (Flonase) 50 MCG/ACT nasal spray Administer 1 spray into affected nostril(s) in the morning. 06/20/2022 03/01/2024 Discontinued (Reorder) Flonase Active Problems Active Problems Problem Classification Problem Date Documented Date Episodic/Chronic Cataract (11 sources) After-cataract of bilateral eyes; Translations: [Other secondary cataract, bilateral] Onset: 11-08-2023 11-08-2023 Chronic Diabetes mellitus without complication (13 sources) Prediabetes; Translations: [Prediabetes] Onset: 12-19-2023 12-19-2023 Episodic Disorders of lipid metabolism (20 sources) Hyperlipidemia, unspecified; Translations: [Hypertriglyceridemia ] Onset: 07-07-2022 11-18-2023 Chronic Immunizations and screening for infectious disease (2 sources) Needs influenza immunization; Translations: [Encounter for immunization] 02-27-2024 Episodic Neoplasms of unspecified nature or uncertain behavior [...] Episodic Other ear and sense organ disorders (11 sources) Impacted cerumen in left ear; Translations: [Impacted cerumen, left ear] Onset: 12-19-2023 12-19-2023 Episodic Other screening for suspected conditions (not mental disorders or infectious disease) (13 sources) Encounter for screening mammogram for malignant neoplasm of breast; Translations: [Patient encounter status] Onset: 03-29-2022 Episodic Retinal detachments; defects; vascular occlusion; and retinopathy (20 sources) Bilateral epiretinal membrane of eyes; Translations: [Puckering of macula, bilateral] Onset: 11-08-2023 11-08-2023 Chronic Thyroid disorders (18 sources) Hypothyroidism, unspecified; Translations: [Hypothyroidism] Onset: 02-06-2022 Chronic Unclassified (3 sources) LOW BACK PAIN, UNSPECIFIED; Translations: [LOW BACK PAIN, UNSPECIFIED] Onset: 07-07-2022 Viral infection (2 sources) Verruca plantaris; Translations: [Plantar wart] 02-13-2024 Episodic Past or Other Problems Problem Classification Problem Date Documented Da te Episodic/Chronic Genitourinary symptoms and ill-defined conditions (1 source) Dysuria Onset: 11-26-2021 Resolved: 11-26-2021 Episodic Mood disorders (3 sources) Mood disorders Onset: 02-27-2024 02-27-2024 Other eye disorders (11 sources) Dry eyes; Translations: [Dry eye syndrome of bilateral lacrimal glands] Onset: 11-08-2023 11-08-2023 Episodic Residual codes; unclassified (1 source) Family [...] PAIN, UNSPECIFIED] Onset: 07-03-2022 Urinary tract infections (12 sources) Acute cystitis with hematuria; Translations: [Cystitis] Onset: 11-26-2021 Resolved: 11-26-2021 Episodic Results Test Name Value Interpretation Reference Range Facility ALL LIPID PROFILE (FASTING)o n 02-18-2024 CHOL HDL RATIO 3.3 [facility] Comment on above: 3.3 - 4.4 LOW RISK 4.4 - 7.1 AVERAGE RISK 7.1 - 11.0 MODERATE RISK >11.0 HIGH RISK Cholesterol [Mass/Vol] 160 mg/dL NINF - 200 mg/dL [facility] Cholesterol in HDL [Mass/Vol] 49 mg/dL 40 - 60 mg/dL [facility] Comment on above: > or =60 mg/dl - LOW CARDIOVASCULAR RISK <40 mg/dl - HIGH CARDIOVASCULAR RISK Interpretation and review of laboratory results Abnormal [facility] re Magnesium [Mass/Vol] 49 mg/dL [facility] Comment on above: <100 mg/dl OPTIMAL 100-129 mg/dl NEAR OR ABOVE OPTIMAL 130-159 mg/dl BORDERLINE HIGH 160-189 mg/dl HIGH >190 mg/dl VERY HIGH Magnesium [Mass/Vol] 62.6 mg/dL [facility] Triglyceride [Mass/Vol] 313 mg/dL High NINF - 150 mg/dL [facility] TSH W/REFLEX T4on 01-22-2024 TSH Qn 0.892 m[IU]/L [facility] Healthcar e Office Visiton 12-04-2023 Follow-up visit [id number] Bertha Galarza 1950 F Date Provider Department Center 12/04/2023 [id number]-ANN JARRETT Family History Problem Relation Age of Onset Coronary artery disease Mother Coronary artery disease Sister Coronary artery disease Brother Family Status - Relation Status Age at Mother Sister Brother Level of Service:84466 MS OFFICE/OUTPATIENT NEW LOW MDM 30 MINUTES Normal [facility] US CAROTID ARTERY DUPLE X BILATERALon 11-20-2023 [facility] US CAROTID ARTERY DUPLEX BILATERAL [...] report is generated using voice recognition reporting (Defixo). On occasion Magnet System[employer] erroneously drops words from the report or replaces the spoken word with similar sounding words. Please call with any questions/concerns regarding this report.* Dictated and transcribed 11/25/23/dpd This report has been electronically signed and approved by the interpreting radiologist. Electronically Signed Tito Riddle M.D. 2023-11-25 14:40:34 Normal Not Available DIRECT LDLon 07-03-2022 Cholesterol in LDL [Mass/Vol] 174 mg/dL Normal [facility] Comment on above: Performed By: #### D LDL, LIPID, TSH #### [facility] [address] [place] [address] Dr. Radha Farris DLD NORMAL SEE BELOW Normal [facility] Comment on above: Result Comment: <100 mg/dl OPTIMAL 100 - 129 mg/dl NEAR OR ABOVE OPTIMAL 130 - 159 mg/dl BORDERLINE HIGH 160 - 189 mg/dl HIGH >190 mg/dl VERY HIGH Performed By: #### D LDL, LIPID, TSH #### [facility] [address] [place] [address] [address] Radha Farris LIPID PROFILEon 07-03-2022 CHOL-HDL RATIO NORM SEE BELOW Normal [facility] Comment on above: Result Comment: 3.3 - 4.4 LOW RISK 4.4 - 7.1 AVERAGE RISK 7.1 - 11.0 MODERATE RISK >11.0 HIGH RISK Performed By: #### D LDL, LIPID, TSH #### [facility] [address] [address] [address] Radha Farris Cholesterol [Mass/Vol] 395 mg/dL Critically high <=200 [facility] Comment on above: Performed By: #### D LDL, LIPID, TSH #### [facility] [address] [address] [address] Radha Farris Cholesterol in HDL [Mass/Vol] 35 mg/dL Critically low 40-60 [facility] Comment on above: Performed By: #### D LDL, LIPID, TSH #### [facility] [address] [address] [address] Radha Farris Cholesterol.total/C holesterol in HDL [Mass ratio] 11.3 {ratio} Normal [facility] Comment on above: Performed By: #### D LDL, LIPID, TSH #### [facility] [address] [address] [address] Radha Farris HDL NORMAL > or = 60 mg/dl - LO W CARDIOVASCULAR RISK <40 mg/dl - HIGH CARDIOVASCULAR RISK Normal [facility] Comment on above: Performed By: #### D LDL, LIPID, TSH #### [facility] [address] [address] [address] Radha Farris Triglyceride [Mass/Vol] 935 mg/dL Critically high <=150 [facility] Comment on above: Performed By: #### D LDL, LIPID, TSH #### [facility] [address] [address] [address] Radha Farris TSHon 07-03-2022 TSH 0.906 uIU/mL Normal 0.358-3.740 [facility] Comment on above: Performed By: #### D LDL, LIPID, TSH #### [facility] [address] [address] [address] Radha Farris XR LSPINE 2_3 VIEWSon [...] KARI DIOP Date: 2022-07-03 13:22 Normal [facility] MAMM SCREEN 3D RABIA CADon 03-29-2022 MG MAMM SCREEN 3D RABIA CAD Patient: BERTHA GALARZA Exam Date: 03/29/2022 : 1950 Gender:F Ordering : DR JOSE DAVID GODWIN D.O. Admission #: [id number] Family : Order #: [id number] CLICK HERE TO VIEW EXAM RADIOLOGY REPORT [...] colon cancer at age 55. LOCATION: [facility] BREAST COMPOSITION: Scattered areas fibroglandular density. FINDINGS: [...] on 03/29/2022 at 13:23 Normal [facility] T4on 02-06-2022 T4 [Mass/Vol] 9.60 ug/dL Normal 4.80-13.90 [facility] Comment on above: Performed By: #### T 4, TSH #### [facility] [address] [place], [place] [address] Dr. Radha Farris TSHon 02-06-2022 TSH 0.188 uIU/mL Critically low 0.358-3.740 [facility] Comment on above: Performed By: #### T 4, TSH #### [facility] [address] [place], [place] [address] Dr. Radha Farris Urine culture routineOrdered By: Yuliet Perez on 11-29-2021 Bacteria identified Cx Nom (U) Escherichia coli [facility] Urinalysis - AUTOMATEDon Appearance (U) clowdy Assignment Editor Other Bilirubin Ql (U) Negative [employer] Other Color (U) yellow [facility] Other Glucose Ql (U) Negative Assignment Editor Other Hemoglobin Ql (U) small [employer] Other Ketones Ql (U) Negative Ass[employer] Other Leukocyte esterase Test strip Ql (U) large [facility] Other Nitrite Ql (U) Negative Assignment [employer] Other pH (U) 6.0 [pH] [facility] Other Protein Ql (U) 30 Assignment [employer] Other Specific gravity (U) [Rel density] 1.020 [facility] Other Urobilinogen (U) [Mass/Vol] 0.2 mg/dL [facility] Other Urinalysis - AUTOMATED [facility] Other Urine Cultureon 11-26-2021 Urine Culture 20,000 [facility] Other Urine Culture <16 Susceptible Assignment Editor Other Urine Culture <8 Susceptible Assignment Editor Other Urine Culture <4 Susceptible Assignment Editor Other Urine Culture <2 Susceptible Assignment Editor Other Urine Culture <1 Susceptible Assignment Editor Other Urine Culture <0.5 Susceptible Assignment Editor Other Urine Culture <32 Susceptible Assignment Editor Other Urine Culture <2/38 Susceptible Assignment Editor Other Bacteria identified Cx Nom (U) ORGANISM: Escherichia coli (O:ESCCOL) [place] Count 20,000 Aerobic ALMA Charge (NUC86) ---- [...] RESISTANT TO ALL B-LACTAM DRUGS. PERFORMED BY: [place] [id number] PATHOLOGIST MANAGER EQUITY JONATHAN PHAN M.D. [facility] Comment on above: Performed By: #### C UU #### [address] chest w conon 09-13-2021 CT chest w [facility] [address] [place] [address] CT Scan Report Signed Patient: Bertha Galarza MR#: [id number] : 1950 Acct:[id number] Age/Sex: 71 / F ADM Date: 09/13/21 Loc: [facility] Room: Type: [facility] Attending Dr: Jose David Godwin DO Ordering Provider: Jose David Godwin DO Date of Service: 09/13/21 CT/CT chest w con: LT UPPER LOBE MASS Copies to: Joes David Godwin DO CT chest withcontrast TECHNIQUE: Axial imaging with 2-D reconstruction. (3 cc of Isovue-300The CT exam was performed using one or more the following dose reduction techniques: Automated exposure control, adjustment of the MA and/or Kv according to patient size, or use of the iterative reconstruction technique. History: Left upper lung mass seen with facet chest x-ray at [place]. COMPARISON: 08/29/2021 plain film chest The thyroid [...] Nehemias Rasheed M.D.09/13/2021 1:21 PM Dictation Location: [place] [address] Transcribed By: [facility] 09/13/21 1321 Dictated By: Nehemias Rasheed DO 09/13/21 1310 Signed By: 09/13/21 1321 Normal [facility] ISTAT XRay CREon 09-13-2021 Creatinine [Mass/Vol] 0.6 mg/dL Normal 0.6-1.3 [facility] Comment on above: Result Comment: ER/E SD physician is notified/shown all ISTAT results. Critical values may be confirmed by laboratory testing if deemed necessary by ER attending doctor. Performed By: #### I SCRE #### [address] Point of Care testing , ISTAT GFR ( > 60 Normal [facility] Comment on above: Result Comment: GFR estimated reference range: According to KDOQI guidelines, <60 ml/min/1.73m2 is sufficient to diagnose a patient with chronic kidney disease. PERFORMED BY: [place] [id number] PATHOLOGIST MANAGER EQUITY JONATHAN PHAN M.D. Performed By: #### I SCRE #### [facility] [address] [place] [address] Point of Care testing , ISTAT GFR (Non- Am > 60 Normal [facility] Comment on above: Performed By: #### I SCRE #### [address] Point of Care testing , Vital Signs Date Time Vital Sign Value Performing Clinician Facility 02-27-2024 10:36-0500 Body height 167.6 cm Lynsey Petersonpatrick TOOL HARDENER Work Phone: [facility] 02-27-2024 10:36-0500 Body mass index (BMI) [Ratio] 31.51 kg/m2 Lynsey Ortiz TOOL HARDENER Work Phone: [facility] 02-27-2024 10:36-0500 Body temperature 97.59 [degF] Lynsey Ortiz TOOL HARDENER Work Phone: [facility] 02-27-2024 10:36-0500 Body weight 88.54 kg Lynsey Ortiz TOOL HARDENER Work Phone: [facility] 02-27-2024 10:36-0500 Diastolic blood pressure 64 mm[Hg] Lynsey Jizpatrick TOOL HARDENER Work Phone: [facility] 02-27-2024 10:36-0500 Heart rate 78 /min Lynsey Ortiz TOOL HARDENER Work Phone: [facility] 02-27-2024 10:36-0500 Respiratory rate 16 /min Lynsey Petersonpatrick TOOL HARDENER Work Phone: [facility] 02-27-2024 10:36-0500 Systolic blood pressure 128 mm[Hg] Lynsey Jizpatrick TOOL HARDENER Work Phone: [facility] 02-13-2024 13:56-0400 Body height 167.6 cm Ben Marti DPM Work Phone: [facility] 02-13-2024 13:56-0400 Body mass index (BMI) [Ratio] 32.28 kg/m2 Ben Marti DPM Work Phone: [facility] 02-13-2024 13:56-0400 Body weight 90.72 kg Ben Marti DPM Work Phone: [facility] 02-13-2024 13:56-0400 Diastolic blood pressure 80 mm[Hg] Ben Marti DPM Work Phone: [facility] 02-13-2024 13:56-0400 Heart rate 78 /min Ben Marti DPM Work Phone: [facility] 02-13-2024 13:56-0400 Systolic blood pressure 129 mm[Hg] Ben Marti DPM Work Phone: [facility] 11-26-2021 11:15-0400 Body height 167.64 cm Yuliet Perez Other [facility] Other 11-26-2021 11:15-0400 Body mass index (BMI) [Ratio] 30.66 kg/m2 Yuliet Perez Other [facility] Other 11-26-2021 11:15-0400 Body temperature 98 [degF] Yuliet Perez Other [facility] Other 11-26-2021 11:15-0400 Body weight 86.18 kg Yuliet Perez Other [facility] Other 11-26-2021 11:15-0400 Diastolic blood pressure 61 mm[Hg] Yuliet Perez Other [facility] Other 11-26-2021 11:15-0400 SaO2% (BldA) [Mass fraction] 98 % Yuliet Perez Other [facility] Other 11-26-2021 11:15-0400 Systolic blood pressure 117 mm[Hg] Yuliet Perez Other [facility] Other Encounters Encounter Date Encounter Type Care Provider Facility Start: 02-27-2024 End: 02-27-2024 Bamboo flowsheet Lynsey Solorzanok TOOL HARDENER Work Phone: [facility] Start: 02-27-2024 End: 02-27-2024 Bamboo flowsheet Lynsey Ortiz TOOL HARDENER Work Phone: [facility] Start: 02-27-2024 End: 02-27-2024 Patient encounter procedure Lynsey Ortiz TOOL HARDENER Work Phone: [facility] Comment on above: Screening for malign ant neoplasm of colon (Primary Dx); Prediabetes; Encounter for screening mammogram for malignant neoplasm of breast; Encounter for osteoporosis screening in asymptomatic postmenopausal patient; Need for immunization against influenza Start: 02-27-2024 End: 02-27-2024 ambulatory LYNSEY ORTIZ Not Available Start: 02-24-2024 End: 02-24-2024 Orders Only Lynsey Ortiz TOOL HARDENER Work Phone: [facility] Comment on above: Mixed hyperlipidemia (CMS/HCC) (Primary Dx) Start: 02-18-2024 End: 02-18-2024 [facility] Result Encounter Lynsey Ortiz TOOL HARDENER Work Phone: [facility] Unsolicited Start: 02-18-2024 End: 02-18-2024 [facility] Result Encounter Lynsey Ortiz TOOL HARDENER Work Phone: [facility] Unsolicited Start: 02-17-2024 End: 02-17-2024 Refill Lynsey Ortiz TOOL HARDENER Work Phone: [facility] Comment on above: Hypothyroidism, unsp ecified type (CMS/HCC) Start: 02-13-2024 End: 02-13-2024 Bamboo flowsheet Ben Marti DPM Work Phone: [facility] Start: 02-13-2024 End: 02-13-2024 Bamboo flowsheet Ben Marti DPM Work Phone: [facility] Start: 02-13-2024 End: 02-13-2024 ambulatory BEN MARTI Not Available Start: 02-13-2024 End: 02-13-2024 Office outpatient new 30 minutes Ben Marti DPM Work Phone: [facility] Comment on above: Plantar fasciitis (P rimary Dx); Verruca plantaris; Neoplasm of uncertain behavior of skin; Foot pain, right Start: 02-11-2024 End: 02-11-2024 Refill Lynsey Ortiz TOOL HARDENER Work Phone: [facility] Comment on above: Hyperlipidemia, unsp ecified hyperlipidemia type (CMS/HCC); Hypothyroidism, unspecified type (CMS/HCC) Start: 01-22-2024 End: 01-22-2024 [facility] Result Encounter Lynsey Ortiz TOOL HARDENER Work Phone: [facility] Unsolicited Start: 01-22-2024 End: 01-22-2024 [facility] Result Encounter Lynsey Ortiz TOOL HARDENER Work Phone: [facility] Unsolicited Start: 12-19-2023 End: 12-19-2023 ambulatory LYNSEY ORTIZ Not Available Start: 12-04-2023 End: 12-04-2023 [facility] Start: 11-20-2023 End: 11-20-2023 ambulatory LYNSEY ORTIZ [...] original px Ame Hong PA Work Phone: [facility] Comment on above: S/P carpal tunnel [...] 11-26-2021 End: 11-26-2021 ambulatory Yuliet Perez Other [employer] Other Start: 11-26-2021 Office outpatient ne w 20 minutes Yuliet Perez [facility] Start: 11-26-2021 End: 11-26-2021 Departed Referred DO Jose David Godwin Work Phone: [facility] [place] Start: 09-13-2021 End: 09-13-2021 Patient encounter procedure DO Jose David Godwin Work Phone: [facility] [address] Procedures Date Procedure Procedure Detail Performing Clinician Start: 02-18-2024 ALL LIPID PROFILE (FASTING) Lynsey Ortiz TOOL HARDENER Work Phone: Start: 01-22-2024 TSH W/REFLEX T4 Lynsey Ortiz TOOL HARDENER Work Phone: Start: 04-01-2023 Mammography Ame ROA Work Phone: [...] 10/20/2025 11:00 AM EDT Office Visit [facility] [address] [place] [address] Ame Hong, PA [address] [place] [address] [facility] Start: 02-26-2025 Medicare Annual Wellness (AWV) Medicare Annual Wellness (AWV) [facility] Start: 05-28-2024 End: 05-28-2024 Patient encounter procedure 05/28/2024 10:30 AM EST Office Visit [facility] [address] [place] [phone] Lynsey Ortiz, TOOL HARDENER [address] [place] [phone] [facility] Start: 05-25-2024 End: 05-25-2024 Patient encounter procedure 05/25/2024 1:15 PM EST Office Visit [facility] [address] [place] [address] Dandy Campos DO [address] [place] [address] [facility] Start: 04-01-2024 Screening for malignant neoplasm of breast Mammogram [facility] Start: 03-23-2024 End: 03-23-2024 Patient encounter procedure 03/23/2024 2:05 PM EST Office Visit [facility] [address] [place] [address] Shira Zimmer MD [address] [place] [address] [facility] Start: 02-27-2024 End: 2025 DBT Breast - bilateral screening Bilateral screening mammogram with tomosynthesis Imaging Routine Encounter for screening mammogram for malignant neoplasm of breast Expected: 02/27/2024, Expires: 2025 [facility] Comment on above: Expected: 02/27/2024 , Expires: 2025 Start: 02-27-2024 End: 02-26-2025 DXA Skeletal system Views for bone density DEXA bone density Imaging Routine Encounter for osteoporosis screening in asymptomatic postmenopausal patient Expected: 02/27/2024, Expires: 02/26/2025 [facility] Comment on above: Expected: 02/27/2024 , Expires: 02/26/2025 Start: 02-27-2024 End: 02-26-2025 Hemoglobin A1c/Hemoglobin.total in Blood Hemoglobin A1c Lab Routine Prediabetes Expected: 02/27/2024 (Approximate), Expires: 02/26/2025 [facility] Comment on above: Expected: 02/27/2024 (Approximate), Expires: 02/26/2025 Start: 02-27-2024 End: 02-26-2025 Noninvasive colorectal cancer DNA and occult blood screening [Presence] in Stool Cologuard colon cancer screening Lab Routine Screening for malignant neoplasm of colon Expected: 02/27/2024 (Approximate), Expires: 02/26/2025 [facility] Work Phone: Comment on above: Expected: 02/27/2024 (Approximate), Expires: 02/26/2025 Start: 02-27-2024 End: 02-27-2024 Patient encounter procedure 02/27/2024 11:00 AM EST Office Visit [facility] [address] [place] [address] Lynsey Ortiz, JADE [address] [place] [phone] [facility] [facility] Start: 02-20-2024 Medicare Annual Wellness (AWV) Medicare Annual Wellness (AWV) [facility] Start: 02-13-2024 End: 02-13-2024 Patient encounter procedure 02/13/2024 1:50 PM EDT Office Visit [facility] [address] [facility] [address] [place] [address] Ben Marti DPM [address] [facility] [address] [place] [address] [facility] Start: 12-15-2023 Influenza vaccination Influenza Vacc ine (#1) [facility] Start: 10-11-2023 End: 10-11-2023 Patient encounter procedure 10/11/2023 10:30 AM EDT Office Visit [facility] [address] [facility] [address] [place] [address] Ame Hong, PA [address] [facility] [address] [place] [address] [facility] Start: 05-24-2023 End: 05-24-2023 Patient encounter procedure 05/24/2023 10:30 AM EST Office Visit [facility] [address] [facility] [address] [place] [address] Ame Hong PA [address] [facility] [address] [place] [address] [facility] Start: 03-25-2022 Screening for malignant neoplasm of colon [facility] Start: 1950 Medicare Annual Wellness (AWV) Medicare Annual Wellness (AWV) [facility] Start: 1950 Screening for malignant neoplasm of colon [facility] XR Hand - right 3 Views XR hand 3+ views right Imaging Routine Right hand pain 05/24/2023 10:32 AM EST [facility] Work Phone: Immunizations Immunization Date Immunization Notes Care Provider Fa [facility] 02-27-2024 influenza, seasonal, injectable, preservative free Lynsey Ortiz TOOL HARDENER Work Phone: [facility] 02-13-2023 influenza virus vaccine, unspecified formulation Lynsey Ortiz TOOL HARDENER Work Phone: [facility] Payers Date Payer Category Payer Medicare [employer]M MEDICARE ADVANTAGE [facility] MEDICARE ADVANTAGE [id number] 2021-Present [address] [place] [address] [id number] 2021 Medicare (Managed Care) [facility] ADVANTAGE [id number] 1959 Medicare [id number] 1950 Unknown [id number] 2.16.840.1.448612.3.579. 2.593 1950 Unknown [id number] .16.840.1.366679.3.579. 2.593 1950 Unknown [id number] 2.16.840.1.370277.3.579. 2.593 1951 Unknown [id number] 2.16.840.1.664006.3.579. 2.1259 1951 Unknown [id number] 2.16.840.1.459689.3.579. 2.1258 1951 Unknown [id number] 2.16.840.1.865753.3.579. 2.125 1951 Unknown [id number] 2.16.840.1.134643.3.579. 2.1258 1951 Unknown [id number] 2.16.840.1.103764.3.579. 2.9 1950 Unknown [id number] 2.16.840.1.415724.3.579. 2.1258 1951 Unknown [id number] 2.16.840.1.110868.3.579. 2.1258 1951 Unknown [id number] 2.16.840.1.803735.3.579. 2.1258 1951 Unknown [id number] 2.16.840.1.854502.3.579. 2.9 1951 Unknown [id number] 2.16.840.1.499096.3.579. 2.1258 1951 Unknown [id number] 2.16.840.1.303452.3.579. 2.125 1951 Unknown [id number] 2.16.840.1.647455.3.579. 2.1258 1951 Unknown [id number] 2.16.840.1.012184.3.579. 2.1258 1951 Unknown [id number] 2.16.840.1.324251.3.579. 2.1258 1951 Unknown [id number] 2.16.840.1.235734.3.579. 2.1259 1950 Unknown [id number] 2.16.840.1.575203.3.579. 2.1259 Self-pay Self Pay [id number] Unknown [place] BC/BS 1 [id number] Unknown Other1 (STD) [id number] Social History Date Type Detail Facility Tobacco smoking stat [facility] Unknown if ever smoked [facility] Work Phone: Start: 1950 Sex Assigned At Female F [facility] Start: 03-29-2023 End: 11-12-2023 Sex Assigned At [facility] Start: 07-28-1973 End: 11-08-2023 Tobacco smoking status ARIS Smokes tobacco daily [facility] Start: 07-28-1973 History of tobacco use Cigarette Smo ker [facility] Start: 11-07-2022 End: 11-08-2023 Tobacco use and exposure Smokeless tobacco non-user [facility] Start: 05-03-2023 End: 02-27-2024 Alcohol intake Lifetime non-drinker (finding) [facility] [...] to any clubs or organizations such as latter day groups, unions, fraternal or athletic groups, or [...] got money to buy more. Never true [facility] Clinical Notes 11-26-2021 to 02-27-2024 Lynsey Ortiz NP - 02/27/2024 11:00 AM Michell Marti DPM - 02/13/2024 1:50 PM JANINA Olivo - 05/24/2023 10:30 AM EST Note Date & Type Note Facility 02-27-2024 History of Present illness Narrative Images from the original note were not included. Subjective : Chief Complaint: Bertha Galarza is an 73 y.o. female here for an annual wellness visit. I have reviewed and reconciled the history and medication list with the patient today. Current Outpatient Medications Medication Sig Dispense Refill aspirin 81 MG EC tablet Take 81 mg by mouth Daily fish oil concentrate (Kenduskeag-3) 1000 MG capsule Take 2 capsules (2 g) by mouth in the morning and 2 capsules (2 g) before bedtime. 120 capsule 2 fluticasone (Flonase) 50 MCG/ACT nasal spray Administer 1 spray into affected nostril(s) in the morning. levothyroxine (Synthroid) 75 MCG tablet Take 1 tablet (75 mcg) by mouth in the morning. Take before meals. 30 tablet 2 rosuvastatin (Crestor) 40 MG tablet Take 1 tablet (40 mg) by mouth Daily 90 tablet 1 montelukast (Singulair) 10 MG tablet (Patient not taking: Reported on 02/27/2024) No current facility-administered medications for this visit. Review of Systems Constitutional: Negative for activity change, appetite change, chills, diaphoresis, fatigue, fever and unexpected weight change. HENT: Negative for congestion, ear pain, rhinorrhea, sinus pressure, sinus pain, sneezing, sore throat, trouble swallowing and voice change. Eyes: Negative for visual disturbance. Respiratory: Negative for cough, chest tightness, shortness of breath and wheezing. Cardiovascular: Negative for chest pain, palpitations and leg swelling. Gastrointestinal: Negative for abdominal distention, abdominal pain, blood in stool, constipation, diarrhea and vomiting. Genitourinary: Negative for decreased urine volume, dysuria, flank pain, frequency, hematuria and urgency. Musculoskeletal: Negative for arthralgias, gait problem, joint swelling and myalgias. Skin: Negative for rash. Neurological: Negative for dizziness, tremors, syncope, weakness, light-headedness and headaches. Psychiatric/Behavioral: Negative for decreased concentration and suicidal ideas. The patient is not nervous/anxious. Hematological: Does not bruise/bleed easily. Endocrine: Negative for cold intolerance, heat intolerance, polydipsia, polyphagia and polyuria. List of current healthcare providers: Patient Care Team: Moustapha De Leon MD as PCP - General (Family Medicine) Stephanie Peters OD as Referring Physician (Optometry) Lynsey Ortiz NP as Nurse Practitioner (Family Medicine) Medicare Annual Visit Over the past 2 weeks, how often have you been bothered by any of the following problems? Little interest or pleasure in doing things: Not at all Feeling down, depressed, or hopeless: Not at all Patient Health Questionnaire-2 Score: 0 Over the past 2 weeks, how often have you been bothered by any of the following problems? Trouble falling or staying asleep, or sleeping too much: Not at all Feeling tired or having little energy: Not at all Poor appetite or overeating: Not at all Feeling bad about yourself - or that you are a failure or have let yourself or your family down: Not at all Trouble concentrating on things, such as reading the newspaper or watching television: Not at all Moving or speaking so slowly that other people could have noticed? Or the opposite - being so fidgety or restless that you have been moving around a lot more than usual.: Not at all Thoughts that you would be better off or hurting yourself in some way: Not at all Patient Health Questionnaire-9 Score: 0 Piper Fall Risk History of Falling, Immediate or Within 3 Months: No Secondary Diagnosis: No Ambulatory Aid: Walks without aid/bedrest/nurse assist Intravenous Therapy/Heparin Lock: No Gait/Transferring: Normal/bedrest/immobile Mental Status: Oriented to own ability Piper Fall Risk Score: 0 Health Risk Assessment Form Do you need help eating, bathing, using the toilet, dressing, or getting around your home?: No Can you prepare your own meals?: Yes Can you do your own housework without help?: Yes Can you shop for groceries or clothes without help?: Yes Do you exercise for about 20 minutes 3 or more days a week?: No How confident are you that you can control and manage most of your health problems?: Very confident Can you mange your money, credit cards and accounts, pay bills and taxes?: Yes Vision Screening: Not done Hearing Screening: Not done Cognitive Screening Self Assessment: No self awareness of cognitive deficiency, No concerns rasied by family members, friends, or caretakers Three Word Registration: Daughter, Aston Lacey Clock Drawing: Normal Clock - 2 Three Word Recall: 2/3 words correct - 2 Total Score (0-5 Points): 4 Pain Assessment Pain Score: 0 - No pain Advance Care Planning Do you have a living will?: No Do you have a medical power of workers compensation attorney?: No Objective : BP 128/64 Pulse 78 Temp 97.6 F Resp 16 Ht 5' 6 Wt 195 lb 3.2 oz LMP (LMP Unknown) BMI 31.51 kg/m No results found. Physical Exam Vitals reviewed. Constitutional: Appearance: Normal appearance. HENT: Head: Normocephalic and atraumatic. Right Ear: Tympanic membrane normal. Left Ear: Tympanic membrane normal. Nose: Nose normal. Mouth/Throat: Mouth: Mucous membranes are moist. Pharynx: Oropharynx is clear. Eyes: Pupils: Pupils are equal, round, and reactive to light. Cardiovascular: Rate and Rhythm: Normal rate and regular rhythm. Pulses: Normal pulses. Heart sounds: Normal heart sounds. Pulmonary: Effort: Pulmonary effort is normal. Breath sounds: Normal breath sounds. Abdominal: General: Abdomen is flat. Bowel sounds are normal. Palpations: Abdomen is soft. Musculoskeletal: General: Normal range of motion. Cervical back: Normal range of motion. Skin: General: Skin is warm and dry. Capillary Refill: Capillary refill takes less than 2 seconds. Neurological: General: No focal deficit present. Mental Status: She is alert and oriented to person, place, and time. Psychiatric: Mood and Affect: Mood normal. Behavior: Behavior normal. Assessment/Plan : The following health maintenance schedule was reviewed with the patient and provided in printed form in the after visit summary: Health Maintenance Topic Date Due Colorectal Cancer Screening 03/25/2022 Medicare Annual Wellness (AWV) 02/26/2025 Influenza Vaccine Completed Pneumococcal Vaccine: 65+ Years Completed Mammogram Discontinued Advance Care Planning Provided patient with information of Advanced Care Planning. Orders Placed This Encounter Procedures Bilateral screening mammogram Standing Status: Future Number of Occurrences: 1 Standing Expiration Date: 2025 Order Specific Question: Reason for exam: Answer: screening for breast cancer DEXA bone density Standing Status: Future Standing Expiration Date: 02/26/2025 Order Specific Question: Reason for exam: Answer: screening for osteoporosis Flu vaccine greater than or equal to 3 years old, preservative free IM Cologuard colon cancer screening Standing Status: Future Number of Occurrences: 1 Standing Expiration Date: 02/26/2025 Order Specific Question: Print requisition? Answer: No Hemoglobin A1c Standing Status: Future Number of Occurrences: 1 Standing Expiration Date: 02/26/2025 Order Specific Question: Print requisition? Answer: No Electronically signed by Lynsey Ortiz NP on February 27, 2024 documented in this encounter [facility] 02-13-2024 History of Present illness Narrative Patient: Bertha Mejía Latonyahussein : 1950 PCP: Moustapha De Leon MD [...] Medical History: Diagnosis Date Actinic keratosis Cancer ([facility]) [id number] Cataract Dry eyes Family history of thyroid problem High cholesterol ([facility]) Hx of breast cancer 2006 Personal history [...] min Stress: No Stress Concern Present (11/12/2023) [employer] - Occupational Stress Questionnaire Feeling of Stress : Not at all Social Connections: Unknown (11/12/2023) Social Connection and Isolation Panel [NHANES] Frequency of Communication with Friends and Family: Once a week Frequency of Social Gatherings with Friends and Family: Once a week Attends Jain Services: Patient declined Active Member of Clubs [...] pathological diagnosis of specimen. Patient may take ktup-hgt-vkbzobp NSAID p.r.n. for pain Application of salinocaine acid medication to lesion/lesions located at right foot Informed pt of risks and benefits of procedure including high reoccurence rate, infection, pain and consent given. Application of DSD post procedure. Patient to continue with oral anti - inflammatories as needed for pain and recommended OTC medications such as tylenol or Ibuprofen Discussed accommodative custom inserts and irs-xu-gloaqf cost has not covered by insurance patient may consider in the future but did recommend bzcu-czf-tvljjlm inserts at this time Ben Marti DPM documented in this encounter [facility] 12-04-2023 Note Cardiology Clinic No te Chief [...] or concerns. Ann Jarrett MD Interventional Cardiology [facility] 05-24-2023 History of Present illness Narrative Images from the original note [...] is normal. Strength additional comments: 5/5 [employer] Neurovascular Right Right neurovascular exam is [...] evaluation. JANINA Jackson documented in this encounter [facility] 11-26-2021 Evaluation note Encounter Date Diagnosis Assessment [...] understanding and is agreeable to treatment plan [employer] Other Evaluation noteNo assessment information available [facility] Work Phone: Evaluation note* Diagnosis S/P carpal tunnel release- Primary Other postprocedural status Right hand pain Pain in soft tissues of limb Arthritis of carpometacarpal (CMC) joint of right thumb documented in this encounter [facility] note* Diagnosis Hypertriglyceridemia (CMS/HCC)- Primary Pure hyperglyceridemia Bilateral [...] unspecified type (CMS/HCC) documented in this encounter [facility] note* Diagnosis Hypertriglyceridemia (CMS/HCC)- Primary Pure hyperglyceridemia Bilateral [...] of limb documented [facility] encounter [facility] Diagnosis Hypertriglyceridemia (CMS/HCC)- Primary Pure hyperglyceridemia Bilateral [...] type (CMS/HCC) documented in [facility] encounter [facility]* Diagnosis Hypertriglyceridemia (CMS/HCC)- Primary Pure hyperglyceridemia Bilateral posterior capsular opacification Unspecified after-cataract Hollenhorst plaque, 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 Mixed hyperlipidemia (CMS/HCC) Mixed hyperlipidemia Short of breath on exertion Chest heaviness Other chest pain Prediabetes- Primary Other abnormal glucose Hypertriglyceridemia (CMS/HCC) Pure hyperglyceridemia Hypothyroidism, unspecified type (CMS/HCC) Impacted cerumen of left ear Impacted cerumen Mixed hyperlipidemia (CMS/HCC)- Primary Mixed hyperlipidemia documented [facility] encounter [facility] Diagnosis Hypertriglyceridemia (CMS/HCC)- Primary Pure hyperglyceridemia Bilateral posterior capsular opacification Unspecified after-cataract Hollenhorst plaque, 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 Mixed hyperlipidemia (CMS/HCC) Mixed hyperlipidemia Short of breath on exertion Chest heaviness Other chest pain Prediabetes- Primary Other abnormal glucose Hypertriglyceridemia (CMS/HCC) Pure hyperglyceridemia Hypothyroidism, unspecified type (CMS/HCC) Impacted cerumen of left ear Impacted cerumen Screening for malignant neoplasm of colon- Primary Prediabetes Other abnormal glucose Encounter for screening mammogram for malignant neoplasm of breast Encounter for osteoporosis screening in asymptomatic postmenopausal patient Need for immunization against influenza Need for prophylactic vaccination and inoculation against influenza documented in this encounter [facility] N[facility]ative - Reported* Type Description Date Medical History Hypothyroid Medical History Hypercholesterolemia Medical History Breast cancer Surgical History colonoscopy Surgical History cholecystectomy Surgical History knee arthroscopy Surgical History tonsillectomy and adenoidectomy Surgical History wisdom teeth Surgical History laparoscopy Surgical History tubal ligation Surgical History biopsy Surgical History left knee replacement 10/04 Hospitalization History see above [employer] Other Chief Complaint and Reason for Visit [...] Godwin , Primary Care Provider, Attending Pr aínbal Active Trixie Gr Jr, DO Other Provider Active Team Status: Active Member Role Status Dates Jose David Godwin DO Primary Care Provider Active Team Status: Inactive Member Role Status Dates Jose David Godwin , Primary Care Provider Active Yuliet Perez APRN Attending Provider Active [employer] Technician Relationship Specialty Start Date End Date Jose David Godwin MD [address] [place] [address] PCP - General Family Medicine 10/11/22 [employer] Relationship Specialty Start Date End Date Jose David Godwin MD [address] [place] [address] PCP - General Family Medicine 10/11/22 [employer] Relationship Specialty Start Date End Date Moustapha De Leon MD [address] [place] [address] PCP - General Family Medicine 11/08/23 Stephanie Peters OD [address] [place], [place] [address] [address] Referring Physician Optometry 11/08/23 Lynsey Ortiz NP [address] [place], [place] [address] [address] Nurse Practitioner Family Medicine 11/13/23 [employer] Technician Relationship Specialty Start Date End Date Moustapha De Leon MD [address] [place] [address] PCP - General Family Medicine 11/08/23 Stephanie Peters OD [address] [place] [address] Referring Physician Optometry 11/08/23 Lynsey Ortiz NP [address] [place] [address] Nurse Practitioner Family Medicine 11/13/23 [employer] Technician Relationship Specialty Start Date End Date Moustapha De Leon MD [address] [place] [address] PCP - General Family Medicine 11/08/23 Stephanie Peters OD [address] [place] [address] Referring Physician Optometry 11/08/23 Lynsey Ortiz NP [address] [place] [address] Nurse Practitioner Family Medicine 11/13/23 [employer] Technician Relationship Specialty Start Date End Date Moustapha De Leon MD [address] [place] [address] PCP - General Family Medicine 11/08/23 Stephanie Peters OD [address] [place] [address] Referring Physician Optometry 11/08/23 Lynsey Ortiz NP [address] [place] [address] Nurse Practitioner Family Medicine 11/13/23 [employer] Technician Relationship Specialty Start Date End Date Moustapha De Leon MD [address] [place] [address] PCP - General Family Medicine 11/08/23 Stephanie Peters, OD [address] [place] [address] Referring Physician Optometry 11/08/23 Lynsey Ortiz NP [address] [place] [address] Nurse Practitioner Family Medicine 11/13/23 [employer] Technician Relationship Specialty Start Date End Date Moustapha De Leon MD [address] [place] [address] PCP - General Family Medicine 11/08/23 Stephanie Peters, OD [address] [facility] [place] [address] Referring Physician Optometry 11/08/23 Lynsey Ortiz NP [address] [place] [address] Nurse Practitioner Family Medicine 11/13/23 [employer] Technician Relationship Specialty Start Date End Date Moustapha De Leon MD [address] [place] [address] PCP - General Family Medicine 11/08/23 Stephanie Peters, OD [address] [facility] [place] [address] Referring Physician Optometry 11/08/23 Lynsey Ortiz NP [address] [place] [address] Nurse Practitioner Family Medicine 11/13/23 [employer] Technician Relationship Specialty Start Date End Date Moustapha De Leon MD [address] [place] [address] PCP - General Family Medicine 11/08/23 Stephanie Peters, OD [address] [facility] [place] [address] Referring Physician Optometry 11/08/23 Lynsey Ortiz NP [address] [place] [address] Nurse Practitioner Family Medicine 11/13/23 Goals (unrecognized section and content) Goals may be documented in a n alternate sectionNo InformationGoals may be documented in an alternate section REASON FOR VISIT (unrecogniz ed section and content) Reason Comments Pain Reason Onset Date Comments Med Refill 02/11/2024 Reason Comments Foot Pain B/L foot pain Reason Onset Date Comments Med Refill 02/17/2024 Reason Comments Follow-up INFORMATION SOURCE (unrecogn ized section and content) DATE CREATED AUTHOR 12/05/2021 [facility] DATE CREATED AUTHOR AUTHOR'S ORGANIZ ATION 07/08/2022 [facility] DATE CREATED AUTHOR AUTHOR'S ORGANIZ ATION 01/08/2024 [facility] DATE CREATED AUTHOR AUTHOR'S ORGANIZ ATION 02/29/2024 [facility] dical Specialists EPIC FOR RECORDS PERTAINING TO PATIENTS [...] BE BASED ON THE PRIMARY CLINICAL RECORDS. [employer] provides no warranty or guarantee of the accuracy or completeness of information in this document.
[2024-03-19 08:43] LABS: Estimated Average Glucose 123 mg/dL; Glycohemoglobin A1C 5.9 % (4.5-6.2)
== END 2024-03-19 07:47 | disposition home or self-care (01) ==
LOC: LAB 07:47
DX: R73.03 Prediabetes (principal)
CPT/HCPCS: 36415; 83036

== ENCOUNTER 2024-04-02 14:28 | Outpatient (OUT) | payer MEDICARE, SELFPAY ==
--- NOTE | 2024-04-02 14:36 | MM_ITS ---
Patient Name: YAIR GALARZA MR#: [id number] : 1950 Exam Date: 04/02/2024 Ordering Doctor: JOVAN RINALDI RADIOLOGY REPORT PROCEDURE: MM TOMOSYNTHESIS SCREENING BI COMPARISON: MG MAMM SCREEN 3D RABIA CAD, 03/29/2022. MM TOMOSYNTHESIS SCREENING BI, 04/01/2023. INDICATIONS: Screening Calculator Name NCI Breast Cancer Risk Assessment Tool 5 Year Breast Cancer Risk n/a% Lifetime Breast Cancer Risk n/a% Personal Breast Cancer Yes, Left breast cancer 2006 Personal Ovarian Cancer No Treatments Lumpectomy, radiation, and chemotherapy Family Cancers Father with lung cancer at age 51; Sister with colon cancer at age 54. LOCATION: [facility] BREAST COMPOSITION: There are scattered areas of fibroglandular density. FINDINGS: DIAGNOSTIC CATEGORY 2--BENIGN FINDING. NO CHANGE FROM COMPARISON. Scattered benign-appearing calcifications are present. Scattered benign-appearing lymph nodes are present. RIGHT BREAST: No significant suspicious finding. LEFT BREAST: No significant suspicious finding. Asymmetrically small with coarse calcification lower inner quadrant, unchanged RECOMMENDATIONS: ROUTINE MAMMOGRAM AND CLINICAL EVALUATION IN 12 MONTHS. PLEASE NOTE: A NORMAL MAMMOGRAM DOES NOT EXCLUDE THE POSSIBILITY OF BREAST CANCER. A CLINICALLY SUSPICIOUS PALPABLE LUMP SHOULD BE BIOPSIED. Dictated by: Naseem Kan MD on 04/02/2024 at 15:36 Approved by: Naseem Kan MD on 04/02/2024 at 15:38
--- NOTE | 2024-04-02 14:36 | XR_ITS ---
The [address] [address] Patient Name: YAIR GALARZA MRN: [id number] date: 1950 Sex: F Assigned Patient Location: [facility] Current Patient Location: Accession/Order Number: [id number] Exam Date: 04/02/2024 15:05 Report Date: 04/03/2024 11:54 At the request of: JOVAN RINALDI Procedure: XR DEXA axial skeleton EXAMINATION: XR DEXA axial skeleton, 04/02/2024 3:05 PM EST HISTORY: Osteoporosis Screening COMPARISON: None. TECHNIQUE: Dual-energy X-ray absorptiometry (DEXA) bone density study performed for the axial skeleton. FINDINGS: Bone mineral density AP spine L2-L4 measures 0.878 g percent meters per. T score -2.7. Osteoporosis. Lowest bone mineral density left femoral trochanter measuring 0.500 g percent meters per. T score -3.1. Osteoporosis XR/XR DEXA axial skeleton IMPRESSION: Osteoporosis. High fracture risk 10 year fracture risk not reported because T score is below -2.5 Pharmacologic treatment recommendations * No uniform recommendation applies to all patients. Management plans must be individualized. * Consider initiating pharmacologic treatment in postmenopausal women and men >= 50 years of age who have the following: Primary fracture prevention: * T-score <= - 2.5 at the femoral neck, total hip, lumbar spine, 33% radius (some uncertainty with existing data) by DXA. * Low bone mass (osteopenia: T-score between - 1.0 and - 2.5) at the femoral neck or total hip by DXA with a 10-year hip fracture risk >= 3% or a 10-year major osteoporosis-related fracture risk >= 20% (i.e., clinical vertebral, hip, forearm, or proximal humerus) based on the [place]-adapted FRAXregistered model. Secondary fracture prevention: * Fracture of the hip or vertebra regardless of BMD [4, 5]. * Fracture of proximal humerus, pelvis, or distal forearm in persons with low bone mass (osteopenia: T-score between - 1.0 and - 2.5). The decision to treat should be individualized in persons with a fracture of the proximal humerus, pelvis, or distal forearm who do not have osteopenia or low BMD [12, 13]. Dorinda MS, Jett SL, Tia KL, Genevieve EM, Christos KG, AJ, Gisela ES. The clinician's guide to prevention and treatment of osteoporosis. Osteoporos Int. 2021;33(10):6196-8703. doi: 10.1007/s35345-946-03121-i. Epub 2021Aug 10. Erratum in: Osteoporos Int. 2021Nov 09;: PMID: [id number]; PMCID: [id number]. Electronically authenticated by: KARI DIOP Date: 04/03/2024 11:54
--- OUTSIDE RECORDS SUMMARY | 2024-04-02 14:43 | XMS_ITS | CCD ---
Author Organization [facility] Care Team Providers Care Wood Carver Name Role Phone DO Jose David Godwin Primary Care Provider DO Jose David Godwin Attending Provider DO Sadi Gr Jr Other Provider [phone] Yuliet Perez Unavailable DO Jose David Godwin Primary Care Provider LUANN Perez Attending Provider SHAIKH Lorelei ENGEL Admitting Unavailable SHAIKH Lorelei ENGEL Attending Unavailable SHAIKH Lorelei ENGEL Primary Care Unavailable CHIKIS, DR KARI Stern Consulting Unavailable SHAIKH Lorelei ENGEL Consulting Unavailable CITLALI, DR GARDINER Admitting Unavailable TRENTON, DR GARDINER Attending Unavailable TRENTON, DR GARDINER Primary Care Unavailable TRENTON, DR GARDINER Consulting Unavailable TRENTON, DR GARDINER Admitting Unavailable TRENTON, DR GARDINER Attending Unavailable TRENTON, DR GARDINER Primary Care Unavailable SAXTONS RIVER, DR KARI Stern Consulting Unavailable TRENTON, DR GARDINER Consulting Unavailable Jose David Godwin MD Primary Care Provider JULIO CESAR JARRETT Attending Unavailable Stephanie Peters OD Unavailable Moustapha De Leon MD Primary Care Provider Lynsey Ortiz NP Unavailable AME HONG Attending Unavailable AME HONG Attending Unavailable AME HONG Attending Unavailable AME HONG Referring Unavailable SHAIKH ENGEL Attending Unavailable AME HONG Attending Unavailable AME HONG Attending Unavailable AME HONG Referring Unavailable DANDY CAMPOS Attending Unavailable LYNSEY ORTIZ Attending UnavailLYNSEY Landis Referring LYNSEY Sewell Attending BEN Boothe Attending Unavailable LYNSEY ORTIZ Attending SHIRA Henry Attending Unavailable Allergies Allergy Classification Reported Allergen(s) Allergy Type Date of Onset Reaction(s) Facility (1 source) Penicillin G Drug Allergy rash [employer] Other (1 source) Penicillin Drug Allergy 0 [facility] Repository (18 sources) Penicillins; Translations: [PENICILLINS] Drug Allergy 3 Hives, Itching, Rash [facility] (1 source) atorvastatin; Translations: [ATORVASTATIN] Drug Allergy 4 [facility] Repository Medications Current Medications Medication Drug Class(es) Dates Sig (Normalized) Sig (Original) aspirin 81 mg delayed release oral tablet (6 sources) Platelet Aggregation Inhibitor, Nonsteroidal Anti-inflammatory Drug take 1 tablet by mouth once daily aspirin 81 MG EC tablet Take 81 mg by mouth Daily Active docosahexaenoic acid 120 mg / eicosapentaenoic acid 180 mg oral capsule (8 sources) Start: 02-24-2024 End: 02-23-2025 take 1 capsule by mouth at bedtime fish oil concentrate (Seneca-3) 1000 MG capsule Indications: Mixed hyperlipidemia (CMS/HCC) Take 2 capsules (2 g) by mouth in the morning and 2 capsules (2 g) before bedtime. 120 capsule 2 02/24/2024 02/23/2025 Active fluticasone propionate 0.05 mg/actuat metered dose nasal spray (18 sources) Corticosteroid Start: 06-20-2022 End: 03-01-2024 take 1 spray(s) nasal route in the morning fluticasone (Flonase) 50 MCG/ACT nasal spray Indications: Epiretinal membrane (ERM) of both eyes Administer 1 spray into each nostril in the morning. 16 g 3 03/02/2024 Active Flonase Active levothyroxine sodium 0.075 mg oral tablet (20 sources) l-Thyroxine Start: 11-21-2023 End: 02-16-2025 take [...] Orally Active montelukast 10 mg oral tablet (17 sources) Leukotriene Receptor Antagonist Start: 10-15-2022 montelukast (Singulair) 10 MG tablet 10/15/2022 Active Omeprazole (1 source) Proton Pump Inhibitor Omeprazole Active rosuvastatin calcium 40 mg oral tablet (18 sources) HMG-CoA Reductase Inhibitor Start: 11-19-2023 End: [...] Active Problems Problem Classification Problem Date Documented Da te Episodic/Chronic Cataract (15 sources) After-cataract of bilateral eyes; Translations: [Other secondary cataract, bilateral] Onset: 11-08-2023 11-08-2023 Chronic Disorders of lipid metabolism (20 sources) Hyperlipidemia, [...] carpometacarpal joint, right hand] 05-24-2023 Chronic Other and unspecified benign neoplasm (2 sources) Melanocytic nevus of left upper limb; Translations: [Melanocytic nevi of left upper limb, including shoulder] 03-23-2024 Episodic Other and unspecified benign neoplasm (2 sources) Skin lesion; Translations: [Hemangioma of skin and subcutaneous tissue] 03-23-2024 Episodic Other connective tissue disease (1 source) Pain in right hand; Translations: [Pain in right hand] 05-24-2023 Episodic Other connective tissue disease (2 sources) Plantar fasciitis; Translations: [Plantar fascial fibromatosis] 02-13-2024 Episodic Other connective tissue disease (2 sources) Pain in right foot; Translations: [Pain in right foot] 02-13-2024 Episodic Other gastrointestinal disorders (2 sources) Stool DNA-based colorectal cancer screening positive; Translations: [Other fecal abnormalities] Onset: 03-26-2024 03-26-2024 Episodic Other screening for suspected conditions (not mental disorders or infectious disease) (20 sources) Encounter for screening mammogram for malignant neoplasm of breast; Translations: [Patient encounter status] Onset: 03-29-2022 Episodic Other skin disorders (2 sources) Seborrheic keratosis; Translations: [Other seborrheic keratosis] 03-23-2024 Episodic Other skin disorders (2 sources) Lentiginosis; Translations: [Other melanin hyperpigmentation] 03-23-2024 Episodic Retinal detachments; defects; vascular occlusion; and retinopathy (20 sources) Bilateral epiretinal membrane of eyes; Translations: [Puckering of macula, bilateral] Onset: 11-08-2023 11-08-2023 Chronic Thyroid disorders (20 sources) Hypothyroidism, unspecified; Translations: [Hypothyroidism] Onset: 02-06-2022 Chronic Unclassified (3 sources) LOW BACK PAIN, UNSPECIFIED; Translations: [LOW BACK PAIN, UNSPECIFIED] Onset: 07-07-2022 Viral infection (2 sources) Verruca plantaris; Translations: [Plantar wart] 02-13-2024 Episodic Past or Other Problems Problem Classification Problem Date Documented Da te Episodic/Chronic Diabetes mellitus without complication (17 sources) Prediabetes; Translations: [Prediabetes] Onset: 12-19-2023 12-19-2023 Episodic Genitourinary symptoms and ill-defined conditions (1 source) Dysuria Onset: 11-26-2021 Resolved: 11-26-2021 Episodic Mood disorders (7 sources) Mood disorders Onset: 02-27-2024 02-27-2024 Other ear and sense organ disorders (15 sources) Impacted cerumen in left ear; Translations: [Impacted cerumen, left ear] Onset: 12-19-2023 12-19-2023 Episodic Other eye disorders (15 sources) Dry eyes; Translations: [Dry eye syndrome [...] Translations: [LOW BACK PAIN, UNSPECIFIED] Onset: 07-03-2022 Unclassified (1 source) Patient encounter status 03-26-2024 Urinary tract infections (16 sources) Acute cystitis with hematuria; Translations: [Cystitis] Onset: 11-26-2021 Resolved: 11-26-2021 Episodic Results Test Name Value Interpretation Reference Range Facility MLR HEMOGLOBIN A1Con 024 Glucose [Mass/Vol] 123 mg/dL [facility] HbA1c (Bld) [Mass fraction] 5.9 % 4.5 - 6.2 % [facility] Comment on above: ADA RECOMMENDED LIMI T 4.0 - 6.0 ADA THERAPEUTIC TARGET < 7.0 ACTION SUGGESTED > 7.0 [facility] ALL LIPID PROFILE (FASTING)o n 02-18-2024 CHOL HDL RATIO 3.3 [facility] Comment on above: 3.3 - 4.4 LOW RISK 4.4 - 7.1 AVERAGE RISK 7.1 - 11.0 MODERATE RISK >11.0 HIGH RISK Cholesterol [Mass/Vol] 160 mg/dL NINF - 200 mg/dL [facility] Cholesterol in HDL [Mass/Vol] 49 mg/dL 40 - 60 mg/dL [facility] Comment on above: > or =60 mg/dl - LOW CARDIOVASCULAR RISK <40 mg/dl - HIGH CARDIOVASCULAR RISK Interpretation and review of laboratory results Abnormal [facility] Magnesium [Mass/Vol] 49 mg/dL [facility] Comment on above: <100 mg/dl OPTIMAL 100-129 mg/dl NEAR OR ABOVE OPTIMAL 130-159 mg/dl BORDERLINE HIGH 160-189 mg/dl HIGH >190 mg/dl VERY HIGH Magnesium [Mass/Vol] 62.6 mg/dL [facility] Triglyceride [Mass/Vol] 313 mg/dL High NINF - 150 mg/dL [facility] TSH W/REFLEX T4on 01-22-2024 TSH Qn 0.892 m[IU]/L [facility] Office Visiton 12-04-2023 Follow-up visit [id number] Bertha Galarza 1950 F Date Provider Department Center 12/04/2023 [id number]-JULIO CESAR JARRETT [facility] Family History Problem Relation Age of Onset Coronary artery disease Mother Coronary artery disease Sister Coronary artery disease Brother Family Status - Relation Status Age at Mother Sister Brother Level of Service:[address] [place] OFFICE/OUTPATIENT NEW LOW MDM [address] [facility] US CAROTID ARTERY DUPLE X BILATERALon 11-20-2023 [facility] US CAROTID ARTERY DUPLEX BILATERAL [...] report is generated using voice recognition reporting ([employer]). On occasion Dynamic Signal[employer] erroneously drops words from the report or replaces the spoken word with similar sounding words. Please call with any questions/concerns regarding this report.* Dictated and transcribed 11/25/23/dpd This report has been electronically signed and approved by the interpreting radiologist. Electronically Signed Tito Riddle M.D. 2023-11-25 14:40:34 Normal Not Available DIRECT LDLon 07-03-2022 Cholesterol in LDL [Mass/Vol] 174 mg/dL Normal [facility] Comment on above: Performed By: #### D LDL, LIPID, TSH #### [facility] [address] [place] [address] Dr. Radha Farris DLDL NORMAL SEE BELOW Normal [facility] Comment on above: Result Comment: <100 mg/dl OPTIMAL 100 - 129 mg/dl NEAR OR ABOVE OPTIMAL 130 - 159 mg/dl BORDERLINE HIGH 160 - 189 mg/dl HIGH >190 mg/dl VERY HIGH Performed By: #### D LDL, LIPID, TSH #### [facility] [address] [place] [address] Dr. Radha Farris LIPID PROFILEon 07-03-2022 CHOL-HDL RATIO NORM SEE BELOW Normal [facility] Comment on above: Result Comment: 3.3 - 4.4 LOW RISK 4.4 - 7.1 AVERAGE RISK 7.1 - 11.0 MODERATE RISK >11.0 HIGH RISK Performed By: #### D LDL, LIPID, TSH #### [facility] [address] [place] [address] Dr. Radha Farris Cholesterol [Mass/Vol] 395 mg/dL Critically high <=200 [facility] Comment on above: Performed By: #### D LDL, LIPID, TSH #### [facility] [address] [place] [address] Dr. Rdaha Farris Cholesterol in HDL [Mass/Vol] 35 mg/dL Critically low 40-60 [facility] Comment on above: Performed By: #### D LDL, LIPID, TSH #### [facility] [address] [address] [address] Radha Farris Cholesterol.total/C holesterol in HDL [Mass ratio] 11.3 {ratio} Normal [facility] Comment on above: Performed By: #### D LDL, LIPID, TSH #### [facility] [address] [address] [address] Radha Farris HDL NORMAL > or = 60 mg/dl - LO W CARDIOVASCULAR RISK <40 mg/dl - HIGH CARDIOVASCULAR RISK Normal [facility] Comment on above: Performed By: #### D LDL, LIPID, TSH #### [facility] [address] [address] [address] Radha Farris Triglyceride [Mass/Vol] 935 mg/dL Critically high <=150 [facility] Comment on above: Performed By: #### D LDL, LIPID, TSH #### [facility] [address] [place] [address] Dr. Radha Farris TSHon 07-03-2022 TSH 0.906 uIU/mL Normal 0.358-3.740 [facility] Comment on above: Performed By: #### D LDL, LIPID, TSH #### [facility] [address] [place] [address] Dr. Radha Farris XR LSPINE 2_3 VIEWSon [...] DIOP Date: 2022-07-03 13:22 Normal [facility] MG MAMM SCREEN 3D RABIA CADon 03-29-2022 MG MAMM SCREEN 3D RABIA CAD Patient: BERTHA GALARZA Exam Date: 03/29/2022 : 1950 Gender:F Ordering : DR JOSE DAVID GODWIN D.O. Admission #: [id number] Family : Order #: [id number] CLICK HERE TO VIEW EXAM RADIOLOGY REPORT [...] cancer at age 55. LOCATION: [facility] BREAST COMPOSITION: Scattered areas fibroglandular density. [...] on 03/29/2022 at 13:23 Normal [facility] T4on 02-06-2022 T4 [Mass/Vol] 9.60 ug/dL Normal 4.80-13.90 [facility] Comment on above: Performed By: #### T 4, TSH #### [facility] [address], [place] [address] Dr. Radha Farris TSHon 02-06-2022 TSH 0.188 uIU/mL Critically low 0.358-3.740 [facility] Comment on above: Performed By: #### T 4, TSH #### [facility] [address], [place] [address] Dr. Radha Farris Urine culture routineOrdered By: Yuliet Perez on 11-29-2021 Bacteria identified Cx Nom (U) Escherichia coli [facility] Urinalysis - AUTOMATEDon Appearance (U) clowdy [employer] Other Bilirubin Ql (U) Negative [employer] Other Color (U) yellow [employer] Other Glucose Ql (U) Negative [employer] Other Hemoglobin Ql (U) small [employer] Other Ketones Ql (U) Negative [employer] Other Leukocyte esterase Test strip Ql (U) large [employer] Other Nitrite Ql (U) Negative [employer] Other pH (U) 6.0 [pH] [employer] Other Protein Ql (U) 30 [employer] Other Specific gravity (U) [Rel density] 1.020 [employer] Other Urobilinogen (U) [Mass/Vol] 0.2 mg/dL [employer] Other Urinalysis - AUTOMATED [employer] Other Urine Cultureon 11-26-2021 Urine Culture 20,000 [employer] Other Urine Culture <16 Susceptible [employer] Other Urine Culture <8 Susceptible [employer] Other Urine Culture <4 Susceptible [employer] Other Urine Culture <2 Susceptible [employer] Other Urine Culture <1 Susceptible [employer] Other Urine Culture <0.5 Susceptible [employer] Other Urine Culture <32 Susceptible [employer] Other Urine Culture <2/38 Susceptible [employer] Other Bacteria identified Cx Nom (U) ORGANISM: Escherichia coli (O:ESCCOL) [place] Count 20,000 Aerobic ALMA Charge (NUC86) ---- [...] RESISTANT TO ALL B-LACTAM DRUGS. PERFORMED BY: [place] [address] PATHOLOGIST SAP SPECIALIST JONATHAN PHAN M.D. [facility] Comment on above: Performed By: #### C UU #### [address] chest w anoop 09-13-2021 CT chest w [facility] [place] [address] [place] [address] CT Scan Report Signed Patient: Bertha Galarza MR#: [id number] : 1950 Acct:[id number] Age/Sex: 71 / F ADM Date: 09/13/21 [facility] CLI Attending Dr: Jose David [...] mass seen with facet chest x-ray at [place]. COMPARISON: 08/29/2021 plain film chest The thyroid [...] Nehemias Rasheed M.D.09/13/2021 1:21 PM Dictation Location: [place] [address] Transcribed By: [facility] 09/13/21 1321 Dictated By: Nehemias Rasheed DO 09/13/21 1310 Signed By: 09/13/21 1321 [facility] ISTAT XRay CREon 09-13-2021 Creatinine [Mass/Vol] 0.6 mg/dL Normal 0.6-1.3 [facility] Comment on above: Result Comment: ER/E SD physician is notified/shown all ISTAT results. Critical values may be confirmed by laboratory testing if deemed necessary by ER attending doctor. Performed By: #### I SCRE #### [address] Point of Care testing , ISTAT GFR ( > 60 Normal [facility] Comment on above: Result Comment: GFR estimated reference range: According to KDOQI guidelines, <60 ml/min/1.73m2 is sufficient to diagnose a patient with chronic kidney disease. PERFORMED BY: [place] [address] PATHOLOGIST SAP SPECIALIST JONATHAN PHAN M.D. Performed By: #### I SCRE #### [facility] [address] [place] [address] Point of Care testing , ISTAT GFR (Non- Am > 60 Normal [facility] Comment on above: Performed By: #### I SCRE #### [facility] [address] [place] [address] Point of Care testing , Vital Signs Date Time Vital Sign Value Performing Clinician Facility 02-27-2024 10:36-0500 Body height 167.6 cm Lynsey Ortiz HEAD OF STORE OPERATIONS Work Phone: [facility] 02-27-2024 10:36-0500 Body mass index (BMI) [Ratio] 31.51 kg/m2 Lynsey Smithtrick HEAD OF STORE OPERATIONS Work Phone: [facility] 02-27-2024 10:36-0500 Body temperature 97.59 [degF] Lynsey Petersonpatrick HEAD OF STORE OPERATIONS Work Phone: [facility] 02-27-2024 10:36-0500 Body weight 88.54 kg Lynsey Petersonpatrick HEAD OF STORE OPERATIONS Work Phone: [facility] 02-27-2024 10:36-0500 Diastolic blood pressure 64 mm[Hg] Lynsey Smithtrick HEAD OF STORE OPERATIONS Work Phone: [facility] 02-27-2024 10:36-0500 Heart rate 78 /min Lynsey Ortiz HEAD OF STORE OPERATIONS Work Phone: [facility] 02-27-2024 10:36-0500 Respiratory rate 16 /min Lynsey Ortiz HEAD OF STORE OPERATIONS Work Phone: [facility] 02-27-2024 10:36-0500 Systolic blood pressure 128 mm[Hg] Lynsey Ortiz HEAD OF STORE OPERATIONS Work Phone: [facility] 02-13-2024 13:56-0400 Body height 167.6 cm Ben Marti DPM Work Phone: [facility] 02-13-2024 13:56-0400 Body mass index (BMI) [Ratio] 32.28 kg/m2 Ben Marti DPM Work Phone: [facility] 02-13-2024 13:56-0400 Body weight 90.72 kg Ben Marti DPM Work Phone: [facility] 02-13-2024 13:56-0400 Diastolic blood pressure 80 mm[Hg] Ben Marti DPM Work Phone: [facility] 02-13-2024 13:56-0400 Heart rate 78 /min Ben Marti DPM Work Phone: [facility] 02-13-2024 13:56-0400 Systolic blood pressure 129 mm[Hg] Ben Marti DPM Work Phone: [facility] 11-26-2021 11:15-0400 Body height 167.64 cm Yuliet Perez Other [employer] Other 11-26-2021 11:15-0400 Body mass index (BMI) [Ratio] 30.66 kg/m2 Yuliet Perez Other [employer] Other 11-26-2021 11:15-0400 Body temperature 98 [degF] Yuliet Perez Other [employer] Other 11-26-2021 11:15-0400 Body weight 86.18 kg Yuliet Perez Other [employer] Other 11-26-2021 11:15-0400 Diastolic blood pressure 61 mm[Hg] Yuliet Perez Other [employer] Other 11-26-2021 11:15-0400 SaO2% (BldA) [Mass fraction] 98 % Yuliet Perez Other [employer] Other 11-26-2021 11:15-0400 Systolic blood pressure 117 mm[Hg] Yuliet Perez Other [employer] Other Encounters Encounter Date Encounter Type Care Provider Facility Start: 03-26-2024 End: 03-26-2024 Orders Only Lynsey Ortiz HEAD OF STORE OPERATIONS Work Phone: [facility] Comment on above: Positive colorectal cancer screening using Cologuard test (Primary Dx); Encounter for screening for malignant neoplasm of colon Start: 03-23-2024 End: 03-23-2024 Office outpatient visit 15 minutes Shira Zimmer MD Work Phone: [facility] Comment on above: Melanocytic nevus of left upper extremity (Primary Dx); Seborrheic keratosis; Lentigines; Angioma of skin Start: 03-23-2024 End: 03-23-2024 ambulatory SHIRA ZIMMER Not Available Start: 03-19-2024 End: 03-19-2024 [facility] Result Encounter Lynsey Ortiz HEAD OF STORE OPERATIONS Work Phone: [facility] Unsolicited Start: 03-19-2024 End: 03-19-2024 [facility] Result Encounter Lynsey Ortiz HEAD OF STORE OPERATIONS Work Phone: [facility] Unsolicited Start: 02-27-2024 End: 02-27-2024 Bamboo flowsheet Lynsey Ortiz HEAD OF STORE OPERATIONS Work Phone: [facility] Start: 02-27-2024 End: 02-27-2024 Bamboo flowsheet Lynsey Ortiz HEAD OF STORE OPERATIONS Work Phone: [facility] Start: 02-27-2024 End: 02-27-2024 Patient encounter procedure Lynsey Ortiz HEAD OF STORE OPERATIONS Work Phone: [facility] Comment on above: Screening for malign ant neoplasm of colon (Primary Dx); Prediabetes; Encounter for screening mammogram for malignant neoplasm of breast; Encounter for osteoporosis screening in asymptomatic postmenopausal patient; Need for immunization against influenza Start: 02-27-2024 End: 02-27-2024 ambulatory LYNSEY ORTIZ Not Available Start: 02-24-2024 End: 02-24-2024 Orders Only Lynsey Ortiz HEAD OF STORE OPERATIONS Work Phone: [facility] Comment on above: Mixed hyperlipidemia (CMS/HCC) (Primary Dx) Start: 02-18-2024 End: 02-18-2024 [facility] Result Encounter Lynsey Ortiz HEAD OF STORE OPERATIONS Work Phone: [facility] Unsolicited Start: 02-18-2024 End: 02-18-2024 [facility] Result Encounter Lynsey Ortiz HEAD OF STORE OPERATIONS Work Phone: [facility] Unsolicited Start: 02-17-2024 End: 02-17-2024 Refill Lynsey Ortiz HEAD OF STORE OPERATIONS Work Phone: [facility] Comment on [...] Start: 02-11-2024 End: 02-11-2024 Refill Lynsey Ortiz HEAD OF STORE OPERATIONS Work Phone: [facility] Comment on above: Hyperlipidemia, unsp ecified hyperlipidemia type (CMS/HCC); Hypothyroidism, unspecified type (CMS/HCC) Start: 01-22-2024 End: 01-22-2024 [facility] Result Encounter Lynsey Ortiz HEAD OF STORE OPERATIONS Work Phone: [facility] Unsolicited Start: 01-22-2024 End: 01-22-2024 [facility] Result Encounter Lynsey Ortiz HEAD OF STORE OPERATIONS Work Phone: [facility] Unsolicited Start: 12-19-2023 End: 12-19-2023 ambulatory LYNSEY ORTIZ Not Available Start: 12-04-2023 End: 12-04-2023 [facility] Start: 11-20-2023 End: 11-20-2023 ambulatory LYNSEY ORTIZ Not Available Start: 11-18-2023 End: 11-18-2023 ambulatory LYNSEY ORTIZ Not Available Start: 11-08-2023 End: 11-08-2023 ambulatory DANDY CAMPOS Not Available Start: 10-22-2023 End: 10-22-2023 ambulatory AME HONG Not Available Start: 09-03-2023 End: 09-03-2023 ambulatory SHAIKH MAREN Not Available Start: 05-24-2023 Chart abstracting Ame castillo PA Work Phone: [facility] Start: 05-24-2023 End: 05-24-2023 Postop follow up visit related to original px Ame ROA Work Phone: [facility] Comment on above: S/P carpal tunnel re lease (Primary Dx); Right hand pain; Arthritis of carpometacarpal (CMC) joint of right thumb Start: 05-24-2023 End: 05-24-2023 ambulatory AME HONG Not Available Start: 05-10-2023 End: 05-10-2023 ambulatory AME HONG Not Available Start: 04-19-2023 End: 04-19-2023 ambulatory AME HONG Not Available Start: 03-29-2023 End: 03-29-2023 ambulatory AME HONG Not Available Start: 07-03-2022 End: 07-04-2022 ambulatory SHAIKH Lorelei ENGEL Facility:[facility] Start: 03-29-2022 End: 03-30-[address] JOSE DAVID GODWIN Facility:[facility] Start: 02-06-2022 End: 02-07-[address] JOSE DAVID GODWIN Facility:[facility] Start: 11-26-2021 End: 11-26-2021 ambulatory Yuliet Perez Other [employer] Other Start: 11-26-2021 Office outpatient ne w 20 minutes Yuliet Perez [facility] Start: 11-26-2021 End: 11-26-2021 Departed Referred DO Jose David Godwin Work Phone: [facility] [place] Start: 09-13-2021 End: 09-13-2021 Patient encounter procedure DO Jose David Godwin Work Phone: [facility] [address] Procedures Date Procedure Procedure Detail Performing Clinician Start: 03-19-2024 MLR HEMOGLOBIN A1C Lynsey Ortiz HEAD OF STORE OPERATIONS Work Phone: Start: 02-18-2024 ALL LIPID PROFILE (FASTING) Lynsey Ortiz HEAD OF STORE OPERATIONS Work Phone: Start: 01-22-2024 TSH W/REFLEX T4 Lynsey Ortiz NP Work Phone: Start: 04-01-2023 Mammography Ame ROA Work Phone: Start: 11-26-2021 Piperacillin/tazobactam Yuliet Perez Other Start: 09-13-2021 CT of thorax with contrast DO Jose David Godwin Work Phone: History of decompres tatum of median nerve S/P carpal tunnel release Ame ROA Work Phone: Urine culture DO Jose David Ambriz se Work Phone: Plan of Treatment Date Care Activity Detail Author Start: 03-18-2027 Screening for malignant neoplasm of colon [facility] Start: 10-20-2025 End: 10-20-2025 Patient encounter procedure 10/20/2025 11:00 AM EDT Office Visit [facility] [address] [place] [id number] Ame Hong PA [address] [place], [place] [id number] [facility] Start: 03-23-2025 End: 03-23-2025 Patient encounter procedure 03/23/2025 1:35 PM EST Office Visit [facility] [address] [place] [address] Shira Zimmer MD [address] [place] [address] [facility] Start: 02-26-2025 Medicare Annual Wellness (AWV) Medicare Annual Wellness (AWV) [facility] Start: 05-28-2024 End: 05-28-2024 Patient encounter procedure 05/28/2024 10:30 AM EST Office Visit [facility] [address] [place] [phone] Lynsey Ortiz NP [address] [facility] [address] [facility] Start: 05-25-2024 End: 05-25-2024 Patient encounter procedure 05/25/2024 1:15 PM EST Office Visit [facility] [address] [place] [phone] Dandy Campos DO [address] [place] [address] [facility] Start: 04-01-2024 Screening for malignant neoplasm of breast Mammogram [facility] Start: 03-23-2024 End: 03-23-2024 Patient encounter procedure 03/23/2024 2:05 PM EST Office Visit [facility] [address] [place] [address] Shira Zimmer MD [address] [place] [address] [facility] Start: 02-27-2024 End: 2025 DBT Breast - bilateral screening Bilateral screening mammogram with tomosynthesis Imaging Routine Encounter for screening mammogram for malignant neoplasm of breast Expected: 02/27/2024, Expires: 2025 [facility] Comment on above: Expected: 02/27/2024 , Expires: 2025 Start: 02-27-2024 End: 02-26-2025 DXA Skeletal system Views for bone density DEXA bone density Imaging Routine Encounter for osteoporosis screening in asymptomatic postmenopausal patient Expected: 02/27/2024, Expires: 02/26/2025 [facility] Comment on above: Expected: 02/27/2024 , Expires: 02/26/2025 Start: 02-27-2024 End: 02-26-2025 Hemoglobin A1c/Hemoglobin.total in Blood Hemoglobin A1c Lab Routine Prediabetes Expected: 02/27/2024 (Approximate), Expires: 02/26/2025 [facility] Comment on above: Expected: 02/27/2024 (Approximate), Expires: 02/26/2025 Start: 02-27-2024 End: 02-26-2025 Noninvasive colorectal cancer DNA and occult blood screening [Presence] in Stool Cologuard colon cancer screening Lab Routine Screening for malignant neoplasm of colon Expected: 02/27/2024 (Approximate), Expires: 02/26/2025 [facility] Work Phone: Comment on above: Expected: 02/27/2024 (Approximate), Expires: 02/26/2025 Start: 02-27-2024 End: 02-27-2024 Patient encounter procedure 02/27/2024 11:00 AM EST Office Visit [facility] [address] [place] [phone] Lynsey Ortiz NP [address] [place] [address] [facility] Start: 02-20-2024 Medicare Annual Wellness (AWV) Medicare Annual Wellness (AWV) [facility] Start: 02-13-2024 End: 02-13-2024 Patient encounter procedure 02/13/2024 1:50 PM EDT Office Visit [facility] [address] [facility] [address] [place] [phone] Ben Marti, ASAD [address] [facility] [address] [place] [address] [facility] Start: 12-15-2023 Influenza vaccination Influenza Vacc ine (#1) [facility] Start: 10-11-2023 End: 10-11-2023 Patient encounter procedure 10/11/2023 10:30 AM EDT Office Visit [facility] [address] [facility] [address] [place] [phone] Ame Hong PA [address] [facility] [address] [place] [address] [facility] Start: 05-24-2023 End: 05-24-2023 Patient encounter procedure 05/24/2023 10:30 AM EST Office Visit [facility] [address] [facility] [address] [place] [address] Ame Hong PA [address] [facility] [address] [place] [address] [facility] Start: 03-25-2022 Screening for malignant neoplasm of colon [facility] Start: 1950 Medicare Annual Wellness (AWV) Medicare Annual Wellness (AWV) [facility] Start: 1950 Screening for malignant neoplasm of colon [facility] XR Hand - right 3 Views XR hand 3+ views right Imaging Routine Right hand pain 05/24/2023 10:32 AM EST [facility] Work Phone: Immunizations Immunization Date Immunization Notes Care Provider Fa [facility] 02-27-2024 influenza, seasonal, injectable, preservative free Lynsey Ortiz HEAD OF STORE [employer]PERATIONS Work Phone: [facility] 02-13-2023 influenza virus vaccine, unspecified formulation Lynsey Ortiz HEAD OF STORE [employer]PERATIONS Work Phone: [facility] Payers Date Payer Category Payer Medicare [employer] MEDICARE ADVANTAGE [facility] MEDICARE ADVANTAGE [id number] 2021-Present [address] [place] [address] [id number] 2021 Medicare (Managed Care) [facility] ADVANTAGE [id number] 1959 Medicare [id number] 1950 Unknown [id number] 2.16.840.1.345836.3.579. 2.593 1951 Unknown [id number] 2.16.840.1.974512.3.579. 2.593 1951 Unknown [id number] 2.16.840.1.064888.3.579. 2.593 1951 Unknown [id number] 2.16.840.1.473626.3.579. 2.1259 1951 Unknown [id number] 2.16.840.1.214649.3.579. 2.1258 1951 Unknown [id number] 2.16.840.1.569727.3.579. 2.1259 1951 Unknown [id number] 2.16.840.1.948787.3.579. 2.9 1951 Unknown [id number] 2.16.840.1.981227.3.579. 2.1259 1951 Unknown [id number] 2.16.840.1.807977.3.579. 2.1259 1951 Unknown [id number] 2.16.840.1.692449.3.579. 2.1259 1951 Unknown [id number] 2.16.840.1.747579.3.579. 2.1258 1951 Unknown [id number] 2.16.840.1.835546.3.579. 2.1259 1951 Unknown [id number] 2.16.840.1.339063.3.579. 2.1259 1951 Unknown [id number] 2.16.840.1.697146.3.579. 2.1259 1951 Unknown [id number] 2.16.840.1.392536.3.579. 2.1259 1951 Unknown [id number] 2.16.840.1.939002.3.579. 2.1259 1951 Unknown [id number] 2.16.840.1.483325.3.579. 2.1259 1950 Unknown [id number] 2.16.840.1.298971.3.579. 2.1259 Self-pay Self Pay [id number] Unknown [place] BC/BS 1 [id number] Unknown Other1 (STD) [id number] Social History Date Type Detail Facility Tobacco smoking stat [facility] Unknown if ever smoked [facility] Work Phone: Start: 1950 Sex Assigned At Female F [facility] Start: 03-29-2023 End: 11-12-2023 Sex Assigned At [facility] Start: 07-28-1973 End: 11-08-2023 Tobacco smoking status IAIS Smokes tobacco daily [facility] Start: 07-28-1973 History of tobacco use Cigarette Smo ker [facility] Start: 11-07-2022 End: 11-08-2023 Tobacco use and exposure Smokeless tobacco non-user [facility] Start: 05-03-2023 End: 03-23-2024 Alcohol intake Lifetime non-drinker (finding) [facility] [...] to any clubs or organizations such as rastafarian groups, unions, fraternal or athletic groups, or [...] to buy more. Never true [facility] Clinical Notes 11-26-2021 to 03-23-2024 Shira Zimmer MD - 03/23/2024 2:05 PM Earnestine Ortiz NP - 02/27/2024 11:00 AM Michell Marti DPM - 02/13/2024 1:50 PM JANINA Olivo - 05/24/2023 10:30 AM EST Note Date & Type Note Facility 03-23-2024 History of Present illness Narrative Skin Check Location: Patient requests a skin examination from the waist up Dermatologic history: history of Actinic Keratosis Last visit: 1 year ago Established patient Lesions: Location: face and chest Duration: weeks Quality: denies pain, denies itch, denies bleeding Modifying factors: none Associated symptoms: enlarging Treatments: none All pertinent medical history, medications, and allergies were reviewed. General Exam: alert, oriented to person, place, and time, normal affect, well appearing Accompanied by spouse A complete skin exam was offered, pt declined. Areas not examined despite medical recommendation: From the waist down Scalp, Examined Head, Face Examined Neck Examined Chest Examined Back Examined Abdomen Examined Right arm Examined Left arm Examined Hands Examined Digits,nails: Examined Patient wearing nail marshallese, Denies dark streaks under finger nails Lymphatics: 1. Melanocytic nevus of left upper extremity (2) Left Arm, Right Arm Scattered benign appearing, regular brown to light brown melanocytic papules and macules with similar morphology Counseled regarding these benign growths. Rarely, a nevus can develop into malignant melanoma, so any changing nevi should be promptly re-evaluated. 2. Seborrheic keratosis (5) Abdomen (Lower Torso, Anterior), Chest (Upper Torso, Anterior), Head - Anterior (Face), Right Preauricular Area, Torso - Posterior (Back) Stuck on verrucous, sen-brown papules and plaques. Patient was counseled regarding these benign growths. Removal is normally not necessary, but they may be removed if they are symptomatic or for cosmetic reasons. 3. Lentigines (2) Head - Anterior (Face), Torso - Posterior (Back) Scattered sen macules in sun-exposed areas. The patient was informed that lentigines are benign pigmented lesions that occur on sun-exposed and sun-damaged skin. No treatment is necessary. Recommended regular use of broad spectrum sunscreen SPF 30 or higher 4. Angioma of skin (2) Left Arm, Right Arm Scattered blunt-red papule(s). The patient was informed that angiomas are benign growths on the the skin. No treatment is necessary. Next Visit: 1 year skin exam documented in this encounter [facility] 02-27-2024 History of Present illness Narrative Images [...] mg by mouth Daily fish oil concentrate (Seneca-3) 1000 MG capsule Take 2 capsules (2 [...] friends, or caretakers Three Word Registration: Daughter, Deepthi, Aston Clock Drawing: Normal Clock - 2 Three Word Recall: 2/3 words correct - 2 Total Score (0-5 Points): 4 Pain Assessment Pain Score: 0 - No pain Advance Care Planning Do you have a living will?: No Do you have a medical power of litigation attorney associate?: No Objective : BP 128/64 Pulse 78 [...] February 27, 2024 documented in this encounter [facility] 02-13-2024 History of Present illness Narrative Patient: Bertha Cannonhussein : 1950 PCP: Moustapha De Leon MD [...] Medical History: Diagnosis Date Actinic keratosis Cancer ([facility]) [id number] Cataract Dry eyes Family history of thyroid problem High cholesterol ([facility]) Hx of breast cancer 2006 Personal history [...] min Stress: No Stress Concern Present (11/12/2023) [employer] [place] [employer] - Occupational Stress Questionnaire Feeling of Stress : Not at all Social Connections: Unknown (11/12/2023) Social Connection and Isolation Panel [NHANES] Frequency of Communication with Friends and Family: Once a week Frequency of Social Gatherings with Friends and Family: Once a week Attends Evangelical Services: Patient declined Active Member of Clubs [...] pathological diagnosis of specimen. Patient may take [id number] NSAID p.r.n. for pain Application of salinocaine acid medication to lesion/lesions located at right foot Informed pt of risks and benefits of procedure including high reoccurence rate, infection, pain and consent given. Application of DSD post procedure. Patient to continue with oral anti - inflammatories as needed for pain and recommended OTC medications such as tylenol or Ibuprofen Discussed accommodative custom inserts and elf-ah-arelfq cost has not covered by insurance patient may consider in the future but did recommend [id number] inserts at this time Ben Marti DPM documented in this encounter [facility] 12-04-2023 Note Cardiology Clinic No te Chief [...] contact cardiology with any questions or concerns. Julio Cesar Jarrett MD Interventional Cardiology [facility] 05-24-2023 History of Present illness Narrative Images [...] is normal. 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 JANINA Jackson documented in this encounter [facility] 11-26-2021 Evaluation note Encounter Date Diagnosis Assessment [...] understanding and is agreeable to treatment plan [employer] Other Evaluation noteNo assessment information available [facility] Work Phone: Evaluation note* Diagnosis S/P carpal tunnel release- Primary Other postprocedural status Right hand pain Pain in soft tissues of limb Arthritis of carpometacarpal (CMC) joint of right thumb [facility] Diagnosis Hypertriglyceridemia (CMS/HCC)- Primary Pure hyperglyceridemia [...] against influenza [facility] Diagnosis Hypertriglyceridemia (CMS/HCC)- Primary Pure hyperglyceridemia Bilateral posterior capsular opacification Unspecified after-cataract Hollenhorst plaque, 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 Mixed hyperlipidemia (CMS/HCC) Mixed hyperlipidemia Short of breath on exertion Chest heaviness Other chest pain Prediabetes- Primary Other abnormal glucose Hypertriglyceridemia (CMS/HCC) Pure hyperglyceridemia Hypothyroidism, unspecified type (CMS/HCC) Impacted cerumen of left ear Impacted cerumen Melanocytic nevus of left upper extremity- Primary Seborrheic keratosis Lentigines Angioma of skin documented in this encounter [facility]* Diagnosis Hypertriglyceridemia (CMS/HCC)- Primary Pure hyperglyceridemia Bilateral posterior capsular opacification Unspecified after-cataract Hollenhorst plaque, 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 Mixed hyperlipidemia (CMS/HCC) Mixed hyperlipidemia Short of breath on exertion Chest heaviness Other chest pain Prediabetes- Primary Other abnormal glucose Hypertriglyceridemia (CMS/HCC) Pure hyperglyceridemia Hypothyroidism, unspecified type (CMS/HCC) Impacted cerumen of left ear Impacted cerumen Positive colorectal cancer screening using Cologuard test- Primary Encounter for screening for malignant neoplasm of colon documented in this encounter [facility] general Narrative - Reported* Type Description Date Medical History Hypothyroid Medical History Hypercholesterolemia Medical History Breast cancer Surgical History colonoscopy Surgical History cholecystectomy Surgical History knee arthroscopy Surgical History tonsillectomy and adenoidectomy Surgical History wisdom teeth Surgical History laparoscopy Surgical History tubal ligation Surgical History biopsy Surgical History left knee replacement 10/04 Hospitalization History see above [employer] Other Chief Complaint and Reason for Visit [...] Role Status Dates Jose David Godwin , DO Primary Care Provider, Attending Pr aníbal Active Sadi Gr Jr, DO Other Provider Active Team Status: Active Member Role Status Dates Jose David Godwin DO Primary Care Provider Active Team Status: Inactive Member Role Status Dates Jose David Godwin , Primary Care Provider Active Yuliet Perez APRN Attending Provider Active Wood Carver Relationship Specialty Start Date End Date Jose David Godwin MD [address] [place] [address] PCP - General Family Medicine 10/11/22 Wood Carver Relationship Specialty Start Date End Date Jose David Godwin MD [address] [place] [address] PCP - General Family Medicine 10/11/22 Wood Carver Relationship Specialty Start Date End Date Moustapha De Leon MD [address] [facility] [place] [address] PCP - General Family Medicine 11/08/23 Stephanie Peters OD [address] [place] [address] Referring Physician Optometry 11/08/23 Lynsey Ortiz NP [address] [place], [place] [address] [place] [address] Nurse Practitioner Family Medicine 11/13/23 Wood Carver Relationship Specialty Start Date End Date Moustapha De Leon MD [address] [facility] [place] [phone] PCP - General Family Medicine 11/08/23 Stephanie Peters OD [address] [place], [place] [address] [place] [address] Referring Physician Optometry 11/08/23 Lynsey Ortiz NP [address] [place] [address] Nurse Practitioner Family Medicine 11/13/23 Wood Carver Relationship Specialty Start Date End Date Moustapha De Leon MD [address] [place] [phone] PCP - General Family Medicine 11/08/23 Stephanie Peters, OD [address] [facility] [place] [place] [address] Referring Physician Optometry 11/08/23 Lynsey Ortiz NP [address] [place] [address] Nurse Practitioner Family Medicine 11/13/23 Wood Carver Relationship Specialty Start Date End Date Moustapha De Leon MD [address] [place] [phone] PCP - General Family Medicine 11/08/23 Stephanie Peters, OD [address] [facility] [address] Referring Physician Optometry 11/08/23 Lynsey Ortiz NP [address] [place] [address] Nurse Practitioner Family Medicine 11/13/23 Wood Carver Relationship Specialty Start Date End Date Moustapha De Leon MD [address] [place] [phone] PCP - General Family Medicine 11/08/23 Stephanie Peters, OD [address] [facility] [address] Referring Physician Optometry 11/08/23 Lynsey Ortiz NP [address] [place] [address] Nurse Practitioner Family Medicine 11/13/23 Wood Carver Relationship Specialty Start Date End Date Moustapha De Leon MD [address] [place] [phone] PCP - General Family Medicine 11/08/23 Stephanie Peters, OD [address] [facility] [place] [address] Referring Physician Optometry 11/08/23 Lynsey Ortiz NP [address] [place] [address] Nurse Practitioner Family Medicine 11/13/23 Wood Carver Relationship Specialty Start Date End Date Moustapha De Leon MD [address] [place] [phone] PCP - General Family Medicine 11/08/23 Stephanie Peters, OD [address] [facility] [place] [address] Referring Physician Optometry 11/08/23 Lynsey Ortiz NP [address] [place] [address] Nurse Practitioner Family Medicine 11/13/23 Wood Carver Relationship Specialty Start Date End Date Moustapha De Leon MD [address] [place] [address] PCP - General Family Medicine 11/08/23 Stephanie Peters, OD [address] [facility] [address] Referring Physician Optometry 11/08/23 Lynsey Ortiz NP [address] [place] [address] Nurse Practitioner Family Medicine 11/13/23 Wood Carver Relationship Specialty Start Date End Date Moustapha De Leon MD [address] [place] [phone] PCP - General Family Medicine 11/08/23 Stephanie Peters, OD [address] [place] [address] Referring Physician Optometry 11/08/23 Lynsey Ortiz NP [address] [place] [address] Nurse Practitioner Family Medicine 11/13/23 Wood Carver Relationship Specialty Start Date End Date Moustapha De Leon MD [address] [place] [phone] PCP - General Family Medicine 11/08/23 Stephanie Peters, OD [address] [facility] [address] Referring Physician Optometry 11/08/23 Lynsey Ortiz NP [address] [place] [address] Nurse Practitioner Family Medicine 11/13/23 Wood Carver Relationship Specialty Start Date End Date Moustapha De Leon MD [address] [place] [phone] PCP - General Family Medicine 11/08/23 Stephanie Peters OD [address] [place] [address] Referring Physician Optometry 11/08/23 Lynsey Ortiz NP [address] [place] [phone] Nurse Practitioner Family Medicine 11/13/23 Goals (unrecognized section and content) Goals may be documented in a n alternate sectionNo InformationGoals may be documented in an alternate section REASON FOR VISIT (unrecogniz ed section and content) Reason Comments Pain Reason Onset Date Comments Med Refill 02/11/2024 Reason Comments Foot Pain B/L foot pain Reason Onset Date Comments Med Refill 02/17/2024 Reason Comments Follow-up Reason Comments Skin Check INFORMATION SOURCE (unrecogn ized section and content) DATE CREATED AUTHOR 12/05/2021 [facility] DATE CREATED AUTHOR AUTHOR'S ORGANIZ ATION 07/08/2022 [facility] DATE CREATED AUTHOR AUTHOR'S ORGANIZ ATION 01/08/2024 [facility] DATE CREATED AUTHOR AUTHOR'S ORGANDIMITRI ATION 03/26/2024 [facility] FOR RECORDS PERTAINING TO PATIENTS WHO ARE [...] BE BASED ON THE PRIMARY CLINICAL RECORDS. [facility]. provides no warranty or guarantee of the accuracy or completeness of information in this document.
== END 2024-04-02 14:29 | disposition home or self-care (01) ==
LOC: MAMMO 14:28
DX: Z12.31 Encounter for screening mammogram for malignant neoplasm of breast (principal); Z13.820 Encounter for screening for osteoporosis; Z78.0 Asymptomatic menopausal state; Z80.1 Family history of malignant neoplasm of trachea, bronchus and lung; Z80.0 Family history of malignant neoplasm of digestive organs; M81.0 Age-related osteoporosis without current pathological fracture
CPT/HCPCS: 77063; 77067; 77080

== ENCOUNTER 2024-06-05 09:52 | Outpatient (OUT) | payer MEDICARE, SELFPAY ==
--- OUTSIDE RECORDS SUMMARY | 2024-06-05 09:59 | XMS_ITS | CCD ---
Author Organization [facility] [employer] Care Team Providers Care Manager Practice Name Role Phone DO Jose David Godwin Primary Care Provider [phone] DO Jose David Godwin Attending Provider [phone] DO Sadi Gr Jr Other Provider [phone] Yuliet Perez Unavailable DO Jose David Godwin Primary Care Provider LUANN Perez Attending Provider [phone] SHAIKH Lorelei ENGEL Admitting Unavailable SHAIKH Lorelei ENGEL Attending Unavailable SHAIKH Lorelei ENGEL Primary Care Unavailable LUCIUS, DR KARI Stern Consulting Unavailable SHAIKH Lorelei ENGEL Consulting Unavailable CITLALI, DR GARDINER Admitting Unavailable CROPWELL, DR GARDINER Attending Unavailable CROPWELL, DR GARDINER Primary Care Unavailable CROPWELL, DR GARDINER Consulting Unavailable CROPWELL, DR GARDINER Admitting Unavailable CROPWELL, DR GARDINER Attending Unavailable CROPWELL, DR GARDINER Primary Care Unavailable CHEBOYGAN, DR KARI Stern Consulting Unavailable CROPWELL, DR GARDINER Consulting Unavailable Citlali MORENO, Jose David Mclean Primary Care Provider Stephanie Peters OD Unavailable Moustapha De Leon MD Primary Care Provider [phone] Jovan Ortiz NP Unavailable [phone] Taiwo Rosa MD Attending Provider Diana HANSEN-Jovan Sanches Primary Care Provid er Taiwo Rosa Attending Unavailable Taiwo Rosa Admitting Unavailable Jovan Ortiz Primary Care Unavaila DANDY Cruz Attending Unavailable JOVAN ORTIZ Attending UnavailSHAIKH Parrish Attending Unavailable AME HONG Attending Unavailable AME HONG Referring Unavailable DANDY CAMPOS Attending Unavailable JOVAN ORTIZ Attending JOVAN Sewell Referring JOVAN Sewell Attending BEN Boothe Attending Unavailable JOVAN ORTIZ Attending UnavailBENJAMIN Hardwick Attending Unavailable DELMI LOVE Attending Unavailable JULIO CESAR JARRETT Attending Unavailable JULIO CESAR JARRETT Attending Unavailable Allergies Allergy Classification Reported Allergen(s) Allergy Type Date of Onset Reaction(s) Facility (1 source) Penicillin G Drug Allergy rash [facility] Other (1 source) Penicillin Drug Allergy 0 [facility] Repository (20 sources) Penicillins; Translations: [PENICILLINS] Drug Allergy 3 Hives, Itching, Rash [facility] Healthcare (9 sources) atorvastatin; Translations: [ATORVASTATIN] Drug Allergy 4 Other [facility] Healthcare (1 source) Penicillin Drug Allergy 5 [facility] Repository Medications Current Medications Medication Drug Class(es) Dates Sig (Normalized) Sig (Original) [id number] 200 actuat albuterol 0.09 mg/actuat metered dose inhaler (8 sources) beta2-Adrenergic Agonist Start: 04-13-2024 End: 05-13-2024 take 2 puff(s) by inhalation every six hours for wheezing albuterol HFA 90 mcg/act inhaler Indications: Acute URI Inhale 2 puffs every 6 (six) hours if needed for wheezing or shortness of breath 18 g 04/13/2024 Active aspirin 81 mg oral tablet (15 sources) Platelet Aggregation Inhibitor, Nonsteroidal Anti-inflammatory Drug Start: 04-20-2024 take 1 capsule by mouth once daily Aspirin 81 mg capsule Active 81 MG PO Daily April 20, 2024 12:00am take 1 tablet by mouth once ana laura y aspirin 81 MG EC tablet Take 81 mg by mouth Daily Active carbamide peroxide 65 mg/ml otic solution (2 sources) Start: 12-19-2023 End: 12-23-2023 carbamide peroxide (Debrox) 6.5 % otic solution Indications: Impacted cerumen of left ear Administer 3-5 drops into affected ear(s) in the morning and 3-5 drops before bedtime. Do all this for 4 days. 15 mL 12/19/2023 12/23/2023 Active docosahexaenoic acid 120 mg / eicosapentaenoic acid 180 mg oral capsule (16 sources) Start: 02-24-2024 End: 02-23-2025 take 1 capsule by mouth at bedtime fish oil concentrate (Lakeside-3) 1000 MG capsule Indications: Mixed hyperlipidemia (CMS/HCC) Take 2 capsules (2 g) by mouth in the morning and 2 capsules (2 g) before bedtime. 120 capsule 2 02/24/2024 02/23/2025 Active doxycycline hyclate 100 mg oral tablet (3 sources) Tetracycline-class Drug Start: 04-13-2024 End: 04-23-2024 doxycycline (Vibra-Tabs) 100 MG tablet Indications: Acute non-recurrent maxillary sinusitis Take 1 tablet (100 mg) by mouth in the morning and 1 tablet (100 mg) before bedtime. Do all this for 10 days. Take with a full glass of water and do not lie down for at least 30 minutes after.. 20 tablet 04/13/2024 04/23/2024 Active fluticasone propionate 0.05 mg/actuat metered dose nasal spray (20 sources) Corticosteroid Start: 06-20-2022 End: 03-01-2024 take [...] Orally Active montelukast 10 mg oral tablet (20 sources) Leukotriene Receptor Antagonist Start: 10-15-2022 montelukast (Singulair) 10 MG tablet 10/15/2022 Active Lakeside 8-Qip-Nsl-Fish Oil (Fish Oil) 100-160-1,000 mg capsule (1 source) Start: 04-20-2024 take 100-160 capsules by mouth twice daily Lakeside 1-Bpl-Qgt-Fish Oil (Fish Oil) 100-160-1,000 mg capsule Active 2 CAP PO Twice daily April 20, 2024 12:00am omeprazole 20 mg delayed release oral capsule (2 sources) Proton Pump Inhibitor Start: 04-20-2024 take 1 capsule by mouth once daily as needed Omeprazole 20 mg capsule,delayed release(DR/EC) Active 20 MG PO Daily as needed for heart burn April 20, 2024 12:00am Medication Name: Omeprazole; Note: Source Status: Taking; Provider: Chris Horvath ( ) Omeprazole Activ e predniSONE 20 mg oral tablet (2 sources) Start: 04-13-2024 End: 04-18-2024 take 1 tablet by mouth in the morning predniSONE (Deltasone) 20 MG tablet Indications: Acute URI Take 1 tablet (20 mg) by mouth in the morning and 1 tablet (20 mg) in the evening. Take with meals. Do all this for 5 days. 10 tablet 04/13/2024 04/18/2024 Active rosuvastatin calcium 40 mg oral tablet (20 sources) HMG-CoA Reductase Inhibitor Start: 11-19-2023 End: [...] Orally Twice a day for 7 day(s) 14 Aug, 2022 Active Problems Active Problems Problem Classification Problem Date Documented Da te Episodic/Chronic Cancer of breast (8 sources) Malignant tumor of breast ; Translations: [Malignant neoplasm of unspecified site of unspecified female breast] Onset: 12-05-2012 04-13-2024 Chronic Diabetes mellitus without complication (20 sources) Prediabetes; Translations: [Prediabetes] Onset: 12-19-2023 12-19-2023 Episodic Disorders of lipid metabolism (20 sources) Hyperlipidemia, unspecified; Translations: [Hypertriglyceridemia ] Onset: 07-07-2022 11-18-2023 Chronic Immunizations and screening for infectious disease (2 sources) Needs influenza immunization; Translations: [Encounter for immunization] 02-27-2024 Episodic Inflammation; infection of eye (except that caused by tuberculosis or sexually transmitteddisease) (5 sources) Blepharitis of upper and lower eyelids of bilateral eyes; Translations: [Unspecified blepharitis right eye, upper and lower eyelids] Onset: 05-25-2024 05-25-2024 Episodic Neoplasms of unspecified nature or uncertain behavior (2 sources) Neoplasm of uncertain behavior of skin; Translations: [Neoplasm of uncertain behavior of skin] 02-13-2024 Episodic Osteoarthritis (1 source) Arthritis of first carpometacarpal joint of right hand; Translations: [Unilateral primary osteoarthritis of first carpometacarpal joint, right hand] 05-24-2023 Chronic Osteoporosis (1 source) Senile osteoporosis; Translations: [Age-related osteoporosis without current pathological fracture] 04-21-2024 Chronic Other and unspecified benign neoplasm (2 [...] right foot] 02-13-2024 Episodic Other gastrointestinal disorders (10 sources) Stool DNA-based colorectal cancer screening positive; [...] Lentiginosis; Translations: [Other melanin hyperpigmentation] 03-23-2024 Episodic Other upper respiratory infections (20 sources) Acute upper respiratory infection; Translations: [Acute upper respiratory infection, unspecified] Onset: 04-13-2024 04-13-2024 Episodic Retinal detachments; defects; vascular occlusion; and retinopathy (20 sources) Bilateral epiretinal membrane of eyes; Translations: [Puckering of macula, bilateral] Onset: 11-08-2023 11-08-2023 Chronic Substance-related disorders (10 sources) Tobacco dependence syndrome; Translations: [Nicotine dependence, unspecified, uncomplicated] Onset: 04-13-2024 04-13-2024 Chronic Thyroid disorders (20 sources) Hypothyroidism, unspecified; Translations: [Hypothyroidism] Onset: 02-06-2022 Chronic Unclassified (3 sources) LOW BACK PAIN, UNSPECIFIED; Translations: [LOW BACK PAIN, UNSPECIFIED] Onset: 07-07-2022 Viral infection (2 sources) Verruca plantaris; Translations: [Plantar wart] 02-13-2024 Episodic Past or Other Problems Problem Classification Problem Date Documented Da te Episodic/Chronic Cancer of breast (8 sources) History of malignant neoplasm of breast; Translations: [Personal history of malignant neoplasm of breast] Onset: 12-18-2013 04-13-2024 Episodic Cataract (20 sources) After-cataract of bilateral eyes; Translations: [Other secondary cataract, bilateral] Onset: 11-08-2023 Resolved: 05-25-2024 11-08-2023 Chronic Genitourinary symptoms and ill-defined conditions (1 source) Dysuria Onset: 11-26-2021 Resolved: 11-26-2021 Episodic Mood disorders (15 sources) Mood disorders Onset: 02-27-2024 02-27-2024 Other ear and sense organ disorders (20 sources) Impacted cerumen in left ear; Translations: [Impacted cerumen, left ear] Onset: 12-19-2023 12-19-2023 Episodic Other eye disorders (20 sources) Dry eyes; Translations: [Dry eye syndrome of bilateral lacrimal glands] Onset: 11-08-2023 11-08-2023 Episodic Other upper respiratory disease (8 sources) Lesion of vocal cord; Translations: [Other diseases of vocal cords] Onset: 03-24-2020 04-13-2024 Episodic Residual codes; unclassified (1 source) Family [...] Patient encounter status 03-26-2024 Urinary tract infections (20 sources) Acute cystitis with hematuria; Translations: [Cystitis] Onset: 11-26-2021 Resolved: 04-13-2024 Episodic Results Test Name Value Interpretation Reference Range Facility Optical coherence tomography study reporton 05-25-2024 [facility] [facility] PJD Group e Radiology Study observation (narrative) [facility] 05-01-2024 L - -------- Specimen: [id number] Received: 05/01/24 Status: LUCAS Shaw Num: [id number] Spec Type: Surgical Subm Dr: Taiwo Rosa MD Tissues: A Colon Biopsy (CECUM COLON POLYPS) B Colon Biopsy (TRANSVERSE COLON POLYPS) C Colon Biopsy (DESCENDING COLON POLYPS) D Colon Biopsy (SIGMOID COLON POLYP) Procedures: HE/, Gross/Micro L4/4 -------- Age/ Patient Sex Location Account Attending Physician -------- Bertha Galarza 74/F [id number] Taiwo Rosa MD -------- SPEC NUM: [id number] RECD: 05/01/24 STATUS: LUCAS SHAW NUM: [id number] ANGELITA: 05/01/24-1032 [facility] DR: Taiwo Rosa MD ENTERED: 05/01/24-[address] [facility] [address]: ELI TYPE: Surgical DEPT: S ENTERED BY: [id number] RECV BY: [id number] ORDERED: , Gross/Micro L4/4 ORDERED: , Gross/Micro L4/4 Pathological Diagnosis D. Polyps, cecum: Tubular Adenomas. - Negative For High Grade Dysplasia And Malignancy. B. Polyps, transverse colon: Tubular Adenoma(s) and hyperplastic polyp(s). - Negative For High Grade Dysplasia And Malignancy. C. Polyp, descending colon: Hyperplastic polyp. D. Polyp, sigmoid colon: Tubular Adenoma. - Negative For High Grade Dysplasia And Malignancy. Clinical Information Positive Cologuard Gross Description Part A is received in formalin labeled with the patients name, date of , and cecum colon are 3 sen-boles, focally erythematous, friable, 0.5, 0.6 and 0.8 cm in greatest dimension polypoid strips. The specimen is entirely submitted in a single cassette. (1, ns, [id number] A) GENE -------- Specimen: [id number] Received: 05/01/24 Status: KALAJerrod Valeria Num: [id number] Spec Type: Surgical Subm Dr: Taiwo Rosa MD Tissues: A Colon Biopsy (CECUM COLON POLYPS) B Colon Biopsy (TRANSVERSE COLON POLYPS) C Colon Biopsy (DESCENDING COLON POLYPS) D Colon Biopsy (SIGMOID COLON POLYP) Procedures: RANDALL/Manuel, Gross/Micro L4/4 -------- Patient: Bertha Galarza [id number] (Continued) -------- Specimen: [id number] Received: 05/01/24 (Continued) Gross Description (Continued) Signed (signature on file) Rik Juárez MD 05/04/24 1453 -------- Specimen: [id number] Received: 05/01/24 Status: LUCAS Valeria Num: [id number] Spec Type: Surgical Subm Dr: Taiwo Rosa MD Tissues: A Colon Biopsy (CECUM COLON POLYPS) B Colon Biopsy (TRANSVERSE COLON POLYPS) C Colon Biopsy (DESCENDING COLON POLYPS) D Colon Biopsy (SIGMOID COLON POLYP) Procedures: /Manuel, Gross/Micro L4/4 -------- Patient: Bertha Galarza [id number] (Continued) -------- Specimen: [id number] Received: 05/01/24 (Continued) Gross Description (Continued) Part B is received in formalin labeled with the patients name, date of , and transverse colon are 5 sen-boles, focally erythematous, friable, 0.3 to 0.9 cm in greatest dimension polypoid fragments. The largest fragment is inked black at the apparent point of attachment, serially section, and entirely submitted in B1 with the remainder the specimen entirely submitted in B2. (2, ns, [id number] B)JG Part C is received in formalin labeled with the patients name, date of , and descending colon are 2 sen-boles, focally erythematous, friable, 0.3 and 0.5 cm in greatest dimension polypoid fragments. The specimen is entirely submitted in a single cassette. (1, ns, [id number] C) JG Part D is received in formalin labeled with the patients name, date of , and sigmoid colon are 3 sen-boles, focally erythematous, friable, 0.3, 0.6 and 0.7 cm in greatest dimension polypoid fragments. The smallest fragment is inked green, the midsized fragment is inked blue, and the largest fragment is inked black. The midsized fragment is bisected and entirely submitted in a single cassette with the smallest and largest fragments intact. The specimen is entirely submitted in a single cassette. (1, ns, [id number] D) CPT Codes [id number] -------- (more content not included)... Normal [facility] MLR HEMOGLOBIN A1Con 024 Glucose [Mass/Vol] 123 mg/dL [facility] HbA1c (Bld) [Mass fraction] 5.9 % 4.5 - 6.2 % [facility] Comment on above: ADA RECOMMENDED LIMI T 4.0 - 6.0 ADA THERAPEUTIC TARGET < 7.0 ACTION SUGGESTED > 7.0 [facility] ALL LIPID PROFILE (FASTING)o n 02-18-2024 CHOL HDL RATIO 3.3 [facility] Comment on above: 3.3 - 4.4 LOW RISK 4.4 - 7.1 AVERAGE RISK 7.1 - 11.0 MODERATE RISK >11.0 HIGH RISK Cholesterol [Mass/Vol] 160 mg/dL NINF - 200 mg/dL [facility] Cholesterol in HDL [Mass/Vol] 49 mg/dL 40 - 60 mg/dL [facility] Comment on above: > or =60 mg/dl - LOW CARDIOVASCULAR RISK <40 mg/dl - HIGH CARDIOVASCULAR RISK Interpretation and review of laboratory results Abnormal [facility] re Magnesium [Mass/Vol] 49 mg/dL [facility] Comment on above: <100 mg/dl OPTIMAL 100-129 mg/dl NEAR OR ABOVE OPTIMAL 130-159 mg/dl BORDERLINE HIGH 160-189 mg/dl HIGH >190 mg/dl VERY HIGH Magnesium [Mass/Vol] 62.6 mg/dL [facility] Triglyceride [Mass/Vol] 313 mg/dL High NINF - 150 mg/dL [facility] TSH W/REFLEX T4on 01-22-2024 TSH Qn 0.892 m[IU]/L [facility] care [facility] Healthcar e Office Visiton 12-04-2023 Follow-up visit [id number] Bertha Galarza 1950 F Date Provider Department Center 12/04/2023 Sarkis8-JULIO CESAR JARRETT CARD [facility] Family History Problem Relation Age of Onset Coronary artery disease Mother Coronary artery disease Sister Coronary artery disease Brother Family Status - Relation Status Age at Mother Sister Brother Level of Service:53293 [place] OFFICE/OUTPATIENT NEW LOW MDM 30 MINUTES Normal [facility] [place] CAROTID ARTERY DUPLE X BILATERALon 11-20-2023 [...] report is generated using voice recognition reporting ([employer]). On occasion [employer] erroneously drops words from the report or replaces the spoken word with similar sounding words. Please call with any questions/concerns regarding this report.* Dictated and transcribed 11/25/23/dpgregory This report has been electronically signed and approved by the interpreting radiologist. Electronically Signed Tito Riddle M.D. 2023-11-25 14:40:34 Normal Not Available DIRECT LDLon 07-03-2022 Cholesterol in LDL [Mass/Vol] 174 mg/dL Normal [facility] Comment on above: Performed By: #### D LDL, LIPID, TSH #### [facility] [address] [address] [address] Radha Farris DLDL NORMAL SEE BELOW Normal [facility] Comment on above: Result Comment: <100 mg/dl OPTIMAL 100 - 129 mg/dl NEAR OR ABOVE OPTIMAL 130 - 159 mg/dl BORDERLINE HIGH 160 - 189 mg/dl HIGH >190 mg/dl VERY HIGH Performed By: #### D LDL, LIPID, TSH #### [facility] [address] [place], [place] [address] Dr. Radha Farris LIPID PROFILEon 07-03-2022 CHOL-HDL RATIO NORM SEE BELOW Normal [facility] Comment on above: Result Comment: 3.3 - 4.4 LOW RISK 4.4 - 7.1 AVERAGE RISK 7.1 - 11.0 MODERATE RISK >11.0 HIGH RISK Performed By: #### D LDL, LIPID, TSH #### [facility] [address] [address] [address] Radha Farris Cholesterol [Mass/Vol] 395 mg/dL Critically high <=200 [facility] Comment on above: Performed By: #### D LDL, LIPID, TSH #### [facility] [address] [address] [address] Radha Farris Cholesterol in HDL [Mass/Vol] 35 mg/dL Critically low 40-60 [facility] Comment on above: Performed By: #### D LDL, LIPID, TSH #### [facility] [address] [address] [address] Radha Farris Cholesterol.total/C holesterol in HDL [Mass ratio] 11.3 {ratio} Normal [facility] Comment on above: Performed By: #### D LDL, LIPID, TSH #### [facility] [address] [address] [address] Radha Farris HDL NORMAL > or = 60 mg/dl - LO W CARDIOVASCULAR RISK <40 mg/dl - HIGH CARDIOVASCULAR RISK Normal [facility] Comment on above: Performed By: #### D LDL, LIPID, TSH #### [facility] [address] [address] [address] Radha Farris Triglyceride [Mass/Vol] 935 mg/dL Critically high <=150 [facility] Comment on above: Performed By: #### D LDL, LIPID, TSH #### [facility] [address] [address] [address] Radha Farris TSHon 07-03-2022 TSH 0.906 uIU/mL Normal 0.358-3.740 [facility] Comment on above: Performed By: #### D LDL, LIPID, TSH #### [facility] [address] [place] [address] Dr. Radha Farris XR LSPINE 2_3 VIEWSon [...] KARI DIOP Date: 2022-07-03 13:22 Normal [facility] MAMM SCREEN 3D RABIA CADon 03-29-2022 MG MAMM SCREEN 3D RABIA CAD Patient: BERTHA GALARZA Exam Date: 03/29/2022 : 1950 Gender:F Ordering : DR JOSE DAVID GODWIN D.O. Admission #: [id number] Family : Order #: [id number] CLICK HERE TO VIEW EXAM RADIOLOGY REPORT [...] colon cancer at age 55. LOCATION: [facility] BREAST COMPOSITION: Scattered areas fibroglandular density. [...] MD on 03/29/2022 at 13:[address] [facility] T4on 02-06-2022 T4 [Mass/Vol] 9.60 ug/dL Normal 4.80-13.90 [facility] Comment on above: Performed By: #### T 4, TSH #### [facility] [address] [address] [address] Radha Farris TSHon 02-06-2022 TSH 0.188 uIU/mL Critically low 0.358-3.740 [facility] Comment on above: Performed By: #### T 4, TSH #### [facility] [address] [address] [address] Radha Farris Urine culture routineOrdered By: Yuliet Perez on 11-29-2021 Bacteria identified Cx Nom (U) Escherichia coli [facility] Urinalysis - AUTOMATEDon Appearance (U) clowdy [employer] Other Bilirubin Ql (U) Negative [employer] Other Color (U) yellow [facility] Other Glucose Ql (U) Negative [employer] Other Hemoglobin Ql (U) small [employer] Other Ketones Ql (U) Negative [employer] Other Leukocyte esterase Test strip Ql (U) large [facility] Other Nitrite Ql (U) Negative [employer] Other pH (U) 6.0 [pH] [facility] Other Protein Ql (U) 30 [employer] Other Specific gravity (U) [Rel density] 1.020 [facility] Other Urobilinogen (U) [Mass/Vol] 0.2 mg/dL [facility] Other Urinalysis - AUTOMATED [facility] Other Urine Cultureon 11-26-2021 Urine Culture 20,000 [facility] Other Urine Culture <16 Susceptible [employer] Other Urine Culture <8 Susceptible [employer] Other Urine Culture <4 Susceptible [employer] Other Urine Culture <2 Susceptible [employer] Other Urine Culture <1 Susceptible [employer] Other Urine Culture <0.5 Susceptible [employer] Other Urine Culture <32 Susceptible [employer] Other Urine Culture <2/38 Susceptible [employer] Other Vital Signs Date Time Vital Sign Value Performing Clinician Facility 05-28-2024 10:24-0500 Body height 167.6 cm Jovan Ortiz [employer] E[employer]IC OPERATOR Work Phone: [facility] 05-28-2024 10:24-0500 Body mass index (BMI) [Ratio] 32.01 kg/m2 Jovan Ortiz [employer] T[employer] ELASTIC OPERATOR Work Phone: [facility] 05-28-2024 10:24-0500 Body temperature 96.3 [degF] Jovan Ortiz [employer] T[employer] ELASTIC OPERATOR Work Phone: [facility] 05-28-2024 10:24-0500 Body weight 89.95 kg Jovan Ortiz [employer] T[employer]NEL ELASTIC OPERATOR Work Phone: [facility] 05-28-2024 10:24-0500 Diastolic blood pressure 68 mm[Hg] Jovan Ortiz [employer] T[employer]NEL ELASTIC OPERATOR Work Phone: [facility] 05-28-2024 10:24-0500 Heart rate 67 /min Jovan Ortiz [employer] T[employer] ELASTIC OPERATOR Work Phone: [facility] 05-28-2024 10:24-0500 Respiratory rate 16 /min Jovan Ortiz [employer] T[employer]NEL ELASTIC OPERATOR Work Phone: [facility] 05-28-2024 10:24-0500 SaO2% (BldA) [Mass fraction] 95 % Jovan Ortiz [employer] T[employer] ELASTIC OPERATOR Work Phone: [facility] 05-28-2024 10:24-0500 Systolic blood pressure 122 mm[Hg] Jovan Ortiz [employer] T[employer] ELASTIC OPERATOR Work Phone: [facility] 05-01-2024 11:20-0500 Diastolic blood pressure 60 mm[Hg] Jovan Ortiz ZIGZAG TUNNEL ELASTIC OPERATOR-C Work Phone: [facility] 05-01-2024 11:20-0500 Heart rate 70 /min Jovan Ortiz [employer] T[employer]NEL ELASTIC OPERATOR-C Work Phone: [facility] 05-01-2024 11:20-0500 Respiratory rate 16 /min Jovan Ortiz ZIGZ[employer] T[employer]NEL ELASTIC OPERATOR-C Work Phone: [facility] 05-01-2024 11:20-0500 SaO2% (BldA) [Mass fraction] 99 % Jovan Ortiz [employer] T[employer] ELASTIC OPERATOR-C Work Phone: [facility] 05-01-2024 11:20-0500 Systolic blood pressure 112 mm[Hg] Jovan Ortiz ZIGZ[employer] T[employer]NEL ELASTIC OPERATOR-C Work Phone: [facility] 05-01-2024 09:46-0500 Body height 167.64 cm Jovan Ortiz ZIGZ[employer] T[employer]NEL ELASTIC OPERATOR-C Work Phone: [facility] 05-01-2024 09:46-0500 Body weight 86.18 kg Jovan Ortiz ZIGZAG T[employer]NEL ELASTIC OPERATOR-C Work Phone: [facility] 04-13-2024 11:28-0500 Body height 167.6 cm Delmi Love ZIGZ[employer] T[employer]NEL ELASTIC OPERATOR Work Phone: [facility] 04-13-2024 11:28-0500 Body mass index (BMI) [Ratio] 31.64 kg/m2 Delmi Love [employer] T[employer] ELASTIC OPERATOR Work Phone: [facility] 04-13-2024 11:28-0500 Body temperature 97.59 [degF] Delmi Aichholz [employer]IGZAG T[employer]NEL ELASTIC OPERATOR Work Phone: [facility] 04-13-2024 11:28-0500 Body weight 88.91 kg Delmi Jonesholz [employer] T[employer] ELASTIC OPERATOR Work Phone: [facility] 04-13-2024 11:28-0500 Diastolic blood pressure 78 mm[Hg] Delmi Magdalenahholz [employer]IGZAG TUNNEL ELASTIC OPERATOR Work Phone: [facility] 04-13-2024 11:28-0500 Heart rate 86 /min Delmi Jonesholz ZIGZAG TUNNEL ELASTIC OPERATOR Work Phone: [facility] 04-13-2024 11:28-0500 Respiratory rate 19 /min Delmi Perezz ZIGZAG TUNNEL ELASTIC OPERATOR Work Phone: [facility] 04-13-2024 11:28-0500 SaO2% (BldA) [Mass fraction] 95 % Delmi Jonesholz ZIGZAG TUNNEL ELASTIC OPERATOR Work Phone: [facility] 04-13-2024 11:28-0500 Systolic blood pressure 110 mm[Hg] Delmi Jonesholz ZIGZAG TUNNEL ELASTIC OPERATOR Work Phone: [facility] 02-27-2024 10:36-0500 Body height 167.6 cm Jovan Petersonpatrick ZIGZAG TUNNEL ELASTIC OPERATOR Work Phone: [facility] 02-27-2024 10:36-0500 Body mass index (BMI) [Ratio] 31.51 kg/m2 Jovan Ortiz ZIGZAG TUNNEL ELASTIC OPERATOR Work Phone: [facility] 02-27-2024 10:36-0500 Body temperature 97.59 [degF] Jovan Ortiz ZIGZAG TUNNEL ELASTIC OPERATOR Work Phone: [facility] 02-27-2024 10:36-0500 Body weight 88.54 kg Jovan Ortiz ZIGZAG TUNNEL ELASTIC OPERATOR Work Phone: [facility] 02-27-2024 10:36-0500 Diastolic blood pressure 64 mm[Hg] Jovan Ortiz ZIGZAG TUNNEL ELASTIC OPERATOR Work Phone: [facility] 02-27-2024 10:36-0500 Heart rate 78 /min Jovan Ortiz ZIGZAG TUNNEL ELASTIC OPERATOR Work Phone: [facility] 02-27-2024 10:36-0500 Respiratory rate 16 /min Jovan Ortiz ZIGZAG TUNNEL ELASTIC OPERATOR Work Phone: [facility] 02-27-2024 10:36-0500 Systolic blood pressure 128 mm[Hg] Jovan Ortiz ZIGZAG TUNNEL ELASTIC OPERATOR Work Phone: [facility] 02-13-2024 13:56-0400 Body height 167.6 cm Ben Marti DPM Work Phone: [facility] 02-13-2024 13:56-0400 Body mass index (BMI) [Ratio] 32.28 kg/m2 Ben Marti DPM Work Phone: [facility] 02-13-2024 13:56-0400 Body weight 90.72 kg Ben Marti DPM Work Phone: [facility] 02-13-2024 13:56-0400 Diastolic blood pressure 80 mm[Hg] Ben Marti DPM Work Phone: [facility] 02-13-2024 13:56-0400 Heart rate 78 /min Ben Marti DPM Work Phone: [facility] 02-13-2024 13:56-0400 Systolic blood pressure 129 mm[Hg] Ben Mrati DPM Work Phone: [facility] 12-19-2023 11:36-0400 Body height 167.6 cm Jovan Ortiz ZIGZAG TUNNEL ELASTIC OPERATOR Work Phone: [facility] 12-19-2023 11:36-0400 Body mass index (BMI) [Ratio] 31.64 kg/m2 Jovan Ortiz ZIGZAG TUNNEL ELASTIC OPERATOR Work Phone: [facility] 12-19-2023 11:36-0400 Body temperature 97.59 [degF] Jovan Ortiz ZIGZAG TUNNEL ELASTIC OPERATOR Work Phone: [facility] 12-19-2023 11:36-0400 Body weight 88.91 kg Jovan Rosaszpatrick ZIGZAG TUNNEL ELASTIC OPERATOR Work Phone: [facility] 12-19-2023 11:36-0400 Diastolic blood pressure 68 mm[Hg] Jovan Ortiz ZIGZAG TUNNEL ELASTIC OPERATOR Work Phone: [facility] 12-19-2023 11:36-0400 Heart rate 75 /min Jovan Ortiz ZIGZAG TUNNEL ELASTIC OPERATOR Work Phone: [facility] Comment on above: 95% 02 12-19-2023 11:36-0400 Systolic blood pressure 118 mm[Hg] Jovan Ortiz ZIGZAG TUNNEL ELASTIC OPERATOR Work Phone: [facility] 11-26-2021 11:15-0400 Body height 167.64 cm Yuliet Perez Other [facility] Other 11-26-2021 11:15-0400 Body mass index (BMI) [Ratio] 30.66 kg/m2 Yuliet Perez Other [facility] Other 11-26-2021 11:15-0400 Body temperature 98 [degF] Yuliet Perez Other [facility] Other 11-26-2021 11:15-0400 Body weight 86.18 kg Yuliet Perez Other [facility] Other 11-26-2021 11:15-0400 Diastolic blood pressure 61 mm[Hg] Yuliet Perez Other [facility] Other 11-26-2021 11:15-0400 SaO2% (BldA) [Mass fraction] 98 % Yuliet Perez Other [facility] Other 11-26-2021 11:15-0400 Systolic blood pressure 117 mm[Hg] Yuliet Perez Other [facility] Other Encounters Encounter Date Encounter Type Care Provider Facility Start: 06-02-2024 End: 06-02-2024 ambulatory BILLIELOBITOGregory JARRETT [facility] Start: 05-28-2024 End: 05-28-2024 Bamboo flowsheet Jovan Ortiz ZIGZAG TUNNEL ELASTIC OPERATOR Work Phone: [facility] Start: 05-28-2024 End: 05-28-2024 Bamboo flowsheet Jovan Smithtrick ZIGZAG TUNNEL ELASTIC OPERATOR Work Phone: [facility] Start: 05-28-2024 End: 05-28-2024 Office outpatient visit 15 minutes Jovan Ortiz ZIGZAG TUNNEL ELASTIC OPERATOR Work Phone: [facility] Comment on above: Prediabetes (Primary Dx); Hypertriglyceridemia (CMS/HCC) Start: 05-28-2024 End: 05-28-2024 ambulatory JOVAN ORTIZ Not Available Start: 05-25-2024 End: 05-25-2024 Bamboo flowsheet Dandy Campos DO Work Phone: [facility] Start: 05-25-2024 End: 05-25-2024 Bamboo flowsheet Dandy Campos DO Work Phone: [facility] Start: 05-25-2024 End: 05-25-2024 ambulatory DANDY CAMPOS Not Available Start: 05-01-2024 Non-patient / Non-visit Jessica Ortiz ZIGZAG TUNNEL ELASTIC OPERATOR-C Work Phone: [facility] Work Phone: Start: 05-01-2024 End: 05-01-2024 Admission to same day surgery center Jovan Ortiz ZIGZAG TUNNEL ELASTIC OPERATOR-C Work Phone: [facility] Work Phone: Start: 05-01-2024 End: 05-01-2024 ambulatory Jovan Ortiz ZIGZAG TUNNEL ELASTIC OPERATOR-C Work Phone: [facility] Work Phone: Start: 04-21-2024 End: 04-21-2024 Orders Only Jovan Ortiz ZIGZAG TUNNEL ELASTIC OPERATOR Work Phone: [facility] Comment on above: Age-related osteopor osis without current pathological fracture (CMS/HCC) (Primary Dx) Start: 04-13-2024 End: 04-13-2024 Office outpatient visit 15 minutes Delmi Love ZIGZAG TUNNEL ELASTIC OPERATOR Work Phone: [facility] Comment on above: Acute non-recurrent maxillary sinusitis (Primary Dx); Tobacco dependence; Acute URI Start: 04-13-2024 End: 04-13-2024 ambulatory DELMI LOVE Not Available Start: 03-26-2024 End: 03-26-2024 Orders Only Jovan Ortiz ZIGZAG TUNNEL ELASTIC OPERATOR Work Phone: [facility] Comment on above: Positive colorectal cancer screening using Cologuard test (Primary Dx); Encounter for screening for malignant neoplasm of colon Start: 03-23-2024 End: 03-23-2024 Office outpatient visit 15 minutes Benjamin Zimmer MD Work Phone: [facility] Comment on above: Melanocytic nevus of left upper extremity (Primary Dx); Seborrheic keratosis; Lentigines; Angioma of skin Start: 03-23-2024 End: 03-23-2024 ambulatory BENJAMIN ZIMMER Not Available Start: 03-19-2024 End: 03-19-2024 Clinisync Result Encounter Jovan Ortiz ZIGZAG TUNNEL ELASTIC OPERATOR Work Phone: [facility] Unsolicited Start: 03-19-2024 End: 03-19-2024 Clinisync Result Encounter Jovan Ortiz ZIGZAG TUNNEL ELASTIC OPERATOR Work Phone: [facility]olic[facility] Start: 02-27-2024 End: 02-27-2024 Bamboo flowsheet Jovan Ortiz ZIGZAG TUNNEL ELASTIC OPERATOR Work Phone: [facility] Start: 02-27-2024 End: 02-27-2024 Bamboo flowsheet Jovan Ortiz ZIGZAG TUNNEL ELASTIC OPERATOR Work Phone: [facility] Start: 02-27-2024 End: 02-27-2024 Patient encounter procedure Jovan Ortiz ZIGZAG TUNNEL ELASTIC OPERATOR Work Phone: [facility] Comment on above: Screening for malign ant neoplasm of colon (Primary Dx); Prediabetes; Encounter for screening mammogram for malignant neoplasm of breast; Encounter for osteoporosis screening in asymptomatic postmenopausal patient; Need for immunization against influenza Start: 02-27-2024 End: 02-27-2024 ambulatory JOVAN ORTIZ Not Available Start: 02-24-2024 End: 02-24-2024 Orders Only Jovan Ortiz ZIGZAG TUNNEL ELASTIC OPERATOR Work Phone: [facility] Comment on above: Mixed hyperlipidemia (CMS/HCC) (Primary Dx) Start: 02-18-2024 End: 02-18-2024 Clinisync Result Encounter Jovan Ortiz ZIGZAG TUNNEL ELASTIC OPERATOR Work Phone: [facility]solic[facility] Start: 02-18-2024 End: 02-18-2024 Clinisync Result Encounter Jovan Ortiz ZIGZAG TUNNEL ELASTIC OPERATOR Work Phone: [facility] Unsolicited Start: 02-17-2024 End: 02-17-2024 Refill Jovan Ortiz ZIGZAG TUNNEL ELASTIC OPERATOR Work Phone: [facility] Comment on [...] pain, right Start: 02-11-2024 End: 02-11-2024 Refill Jovan Ortiz ZIGZAG TUNNEL ELASTIC OPERATOR Work Phone: [facility] Comment on above: Hyperlipidemia, unsp ecified hyperlipidemia type (CMS/HCC); Hypothyroidism, unspecified type (CMS/HCC) Start: 01-22-2024 End: 01-22-2024 Clinisync Result Encounter Jovan Ortiz ZIGZAG TUNNEL ELASTIC OPERATOR Work Phone: [facility]solic[facility] Start: 01-22-2024 End: 01-22-2024 Clinisync Result Encounter Jovan Ortiz ZIGZAG TUNNEL ELASTIC OPERATOR Work Phone: [facility]solicited Start: 12-19-2023 End: 12-19-2023 Bamboo flowsheet Jovan Ortiz ZIGZAG TUNNEL ELASTIC OPERATOR Work Phone: [facility] Start: 12-19-2023 End: 12-19-2023 Bamboo flowsheet Jovan Ortiz ZIGZAG TUNNEL ELASTIC OPERATOR Work Phone: [facility] Start: 12-19-2023 End: 12-19-2023 Office outpatient visit 15 minutes Jovan Ortiz ZIGZAG TUNNEL ELASTIC OPERATOR Work Phone: [facility] Comment on above: Prediabetes (Primary Dx); Hypertriglyceridemia (CMS/HCC); Hypothyroidism, unspecified type (CMS/HCC); Impacted cerumen of left ear Start: 12-19-2023 End: 12-19-2023 ambulatory JOVAN ORTIZ Not Available Start: 12-04-2023 End: 12-04-2023 ambulatory JULIO CESAR [facility] Start: 11-20-2023 End: 11-20-2023 ambulatory JOVAN ROSASZPATRICK Not Available Start: 11-18-2023 End: 11-18-2023 ambulatory JOVAN ROSASZPATRICK Not Available Start: 11-08-2023 End: 11-08-2023 ambulatory DANDY CAMPOS Not Available Start: 10-22-2023 End: 10-22-2023 ambulatory AME HONG Not Available Start: 09-03-2023 End: 09-03-2023 ambulatory SHAIKH MAREN Not Available Start: 05-24-2023 Chart abstracting Ame castillo PA Work Phone: [facility] Start: 05-24-2023 End: 05-24-2023 Postop follow up visit related to original px Ame Hong PA Work Phone: [facility] Comment on above: S/P carpal tunnel re lease (Primary Dx); Right hand pain; Arthritis of carpometacarpal (CMC) joint of right thumb Start: 07-03-2022 End: 07-04-2022 ambulatory SHAIKH Lorelei MIMSMARYBETHGregory Facility:[facility] Start: 03-29-2022 End: 03-30-[address] JOSE DAVID GODWIN Facility:[facility] Start: 02-06-2022 End: 02-07-[address] JOSE DAVID GODWIN Facility:[facility] Start: 11-26-2021 End: 11-26-2021 ambulatory Yuliet Perez Other [facility] Other Start: 11-26-2021 Office outpatient ne w 20 minutes Yuliet Perez [facility] [place] Start: 11-26-2021 End: 11-26-2021 Departed Referred DO Jose David Godwin Work Phone: [facility] [place] Start: 09-13-2021 End: 09-13-2021 Patient encounter procedure DO Jose David Godwin Work Phone: [facility] [address] Procedures Date Procedure Procedure Detail Performing Clinician Start: 05-25-2024 Computerized ophthal elliot imaging retina Dandy Campos DO Work Phone: Start: 05-25-2024 End: 05-25-2024 Oph medical xm&eval comprhnsv estab pt 1/> Epiretinal membrane (ERM) of both eyes Dandy Campos DO Work Phone: Comment on above: Epiretinal membrane (ERM) of both eyes (Primary Dx); Hollenhorst plaque, right eye; Dry eyes; Blepharitis of upper and lower eyelids of both eyes, unspecified type Start: 05-04-2024 Colonoscopy Danyd sunshine DO Work Phone: Start: 05-01-2024 Colonoscopy Jovan price ZIGZAG TUNNEL ELASTIC OPERATOR-C Work Phone: Start: 03-19-2024 MLR HEMOGLOBIN A1C Marian Ortiz ZIGZAG TUNNEL ELASTIC OPERATOR Work Phone: Start: 02-18-2024 ALL LIPID PROFILE (FASTING) Jovan Ortiz ZIGZAG TUNNEL ELASTIC OPERATOR Work Phone: Start: 01-22-2024 TSH W/REFLEX T4 Serjio Ortiz ZIGZAG TUNNEL ELASTIC OPERATOR Work Phone: Start: 04-01-2023 Mammography Ame castillo PA Work Phone: Start: 11-26-2021 Piperacillin/tazobactam Yuliet Perez Other Start: 09-13-2021 CT of thorax with contrast DO Jose David Godwin Work Phone: History of decompres tatum of median nerve S/P carpal tunnel release Ame Hong PA Work Phone: Urine culture DO Jose David Qureshimargarita lester Work Phone: Plan of Treatment Date Care Activity Detail Author Start: 05-04-2034 Screening for malignant neoplasm of colon [facility] Start: 03-18-2027 Screening for malignant neoplasm of colon [facility] Start: 10-20-2025 End: 10-20-2025 Patient encounter procedure 10/20/2025 11:00 AM EDT Office Visit [facility] [address] [facility] [place] [phone] Ame Hong PA [address] [place] [address] [facility] Start: 03-23-2025 End: 03-23-2025 Patient encounter procedure 03/23/2025 1:35 PM EST Office Visit [facility] [address] [place] [id number] Benjamin Zimmer MD [address] [place] [address] [facility] Start: 02-26-2025 Medicare Annual Wellness (AWV) Medicare Annual Wellness (AWV) [facility] Start: 01-20-2025 End: 01-20-2025 Patient encounter procedure 01/20/2025 1:30 PM EDT Office Visit [facility] [address] [place] [phone] Dandy Campos DO [address] [place] [address] [facility] Start: 11-26-2024 End: 11-26-2024 Patient encounter procedure 11/26/2024 10:30 AM EDT Office Visit [facility] [address] [place] [phone] Jovan Ortiz, JADE [address] [place] [address] [facility] Start: 05-28-2024 End: 05-28-2024 Patient encounter procedure [facility] Comment on above: Arrived Start: 05-25-2024 End: 05-25-2024 Patient encounter procedure [facility] Comment on above: Arrived Start: 05-01-2024 [facility] Start: 04-21-2024 End: 04-21-2025 25-hydroxyvitamin D3 [Mass/volume] in Serum or Plasma Vitamin D 25 hydroxy Lab Routine Age-related osteoporosis without current pathological fracture (CMS/HCC) Expected: 04/21/2024 (Approximate), Expires: 04/21/2025 [facility] Comment on above: Expected: 04/21/2024 (Approximate), Expi res: 04/21/2025 Start: 04-21-2024 End: 04-21-2025 Calcium [Mass/volume] in Serum or Plasma Calcium Lab Routine Age-related osteoporosis without current pathological fracture (CMS/HCC) Expected: 04/21/2024 (Approximate), Expires: 04/21/2025 [facility] Work Phone: Comment on above: Expected: 04/21/2024 (Approximate), Expi res: 04/21/2025 Start: 04-01-2024 Screening for malignant neoplasm of breast Mammogram [facility] Start: 03-23-2024 End: 03-23-2024 Patient encounter procedure 03/23/2024 2:05 PM EST [facility] [address] [place] [address] Benjamin Zimmer MD [address] [place], [place] [id number] [facility] Start: 02-27-2024 End: 2025 DBT Breast - bilateral screening Bilateral screening mammogram with tomosynthesis Imaging Routine Encounter for screening mammogram for malignant neoplasm of breast Expected: 02/27/2024, Expires: 2025 [facility] Comment on above: Expected: 02/27/2024, Expires: Start: 02-27-2024 End: 02-26-2025 DXA Skeletal system Views for bone density DEXA bone density Imaging Routine Encounter for osteoporosis screening in asymptomatic postmenopausal patient Expected: 02/27/2024, Expires: 02/26/2025 [facility] Comment on above: Expected: 02/27/2024, Expires: Start: 02-27-2024 End: 02-26-2025 Hemoglobin A1c/Hemoglobin.total in Blood Hemoglobin A1c Lab Routine Prediabetes Expected: 02/27/2024 (Approximate), Expires: 02/26/2025 [facility] Comment on above: Expected: 02/27/2024 (Approximate), Expi res: 02/26/2025 Start: 02-27-2024 End: 02-26-2025 Noninvasive colorectal cancer DNA and occult blood screening [Presence] in Stool Cologuard colon cancer screening Lab Routine Screening for malignant neoplasm of colon Expected: 02/27/2024 (Approximate), Expires: 02/26/2025 [facility] Work Phone: Comment on above: Expected: 02/27/2024 (Approximate), Expi res: 02/26/2025 Start: 02-27-2024 End: 02-27-2024 Patient encounter procedure 02/27/2024 11:00 AM EST Office Visit [facility] [address] [place] [address] Jovan Ortiz, JADE [address] [place] [address] [facility] Start: 02-20-2024 Medicare Annual Wellness (AWV) Medicare Annual Wellness (AWV) [facility] Start: 02-13-2024 End: 02-13-2024 Patient encounter procedure 02/13/2024 1:50 PM EDT Office Visit [facility] [address] [facility] [address] [place] [phone] Ben Marti DPM [address] [facility] [address] [place] [address] [facility] Start: 01-10-2024 Screening for malignant neoplasm of colon Colorectal Cancer Screening [facility] Comment on above: Postponed from 1950 (Other Patient Reasons) Start: 01-02-2024 End: 12-18-2024 TSH W/REFLEX TO FT4 TSH W/REFLEX TO FT4 Lab Routine Hypothyroidism, unspecified type (CMS/HCC) Expected: 01/02/2024 (Approximate), Expires: 12/18/2024 [facility] Work Phone: Comment on above: Expected: 01/02/2024 (Approximate), Expi res: 12/18/2024 Start: 12-19-2023 End: 12-19-2023 Patient encounter procedure 12/19/2023 11:30 AM EDT Office Visit [facility] [address] [place] [phone] Jovan Ortiz NP [address] [place] [phone] Prediabetes (Primary Dx); Hypertriglyceridemia (CMS/HCC); Mixed hyperlipidemia (CMS/HCC) [facility] Comment on above: Prediabetes (Primary Dx); Hypertriglyceridemia (CMS/HCC); Mixed hyperlipidemia (CMS/HCC) Start: 12-15-2023 Influenza vaccination Influenza Vaccine (#1) [facility] Start: 10-11-2023 End: 10-11-2023 Patient encounter procedure 10/11/2023 10:30 AM EDT Office Visit [facility] [address] [facility] [address] [place] [address] Ame Hong PA [address] [facility] [address] [place] [address] [facility] Start: 05-24-2023 End: 05-24-2023 Patient encounter procedure 05/24/2023 10:30 AM EST Office Visit [facility] [address] [facility] [address] [place] [address] Ame Hong PA [address] [facility] [address] [place] [address] [facility] Start: 03-25-2022 Screening for malignant neoplasm of colon [facility] Start: 1950 Medicare Annual Wellness (AWV) Medicare Annual Wellness (AWV) [facility] Start: 1950 Screening for malignant neoplasm of colon [facility] Patient Education Colon polyps H emorrhoids ED Diverticulosis Know your Meds [facility] Work Phone: XR Hand - right 3 Views XR hand 3+ views right Imaging Routine Right hand pain 05/24/2023 10:32 AM EST [facility] Work Phone: Immunizations Immunization Date Immunization Notes Care Provider Fa [facility] 02-27-2024 influenza, seasonal, injectable, preservative free Jovan Ortiz ZIGZAG TUNNEL ELASTIC OPERATOR Work Phone: [facility] 02-13-2023 Influenza, Seasonal, Quadrivalent, Adjuvanted Delmi Aichholz ZIGZAG TUNNEL ELASTIC OPERATOR Work Phone: [facility] 02-13-2023 influenza virus vacc ine, unspecified formulation Jovan Ortiz ZIGZAG TUNNEL ELASTIC OPERATOR Work Phone: [facility] 02-07-2022 Influenza, Seasonal, Quadrivalent, Adjuvanted Delmi Aichholz ZIGZAG TUNNEL ELASTIC OPERATOR Work Phone: [facility] 04-11-2021 Influenza, Seasonal, Quadrivalent, Adjuvanted Delmi Aichholz ZIGZAG TUNNEL ELASTIC OPERATOR Work Phone: [facility] 01-13-2020 influenza, injectabl e, quadrivalent, preservative free Delmi Aichholz ZIGZAG TUNNEL ELASTIC OPERATOR Work Phone: [facility] 12-25-2019 influenza, injectabl e, quadrivalent, preservative free Delmi Aichholz ZIGZAG TUNNEL ELASTIC OPERATOR Work Phone: [facility] 01-21-2019 pneumococcal polysaccharide vaccine, 23 valent Delmi Aichholz ZIGZAG TUNNEL ELASTIC OPERATOR Work Phone: [facility] 01-21-2019 Seasonal, quadrivale nt, recombinant, injectable influenza vaccine, preservative free Delmi Aichholz ZIGZAG TUNNEL ELASTIC OPERATOR Work Phone: [facility] 01-28-2018 Seasonal trivalent influenza vaccine, adjuvanted, preservative free Delmi Aichholz ZIGZAG TUNNEL ELASTIC OPERATOR Work Phone: [facility] 03-14-2017 influenza, injectabl e, quadrivalent, preservative free Delmi Aichholz ZIGZAG TUNNEL ELASTIC OPERATOR Work Phone: [facility] 03-14-2017 pneumococcal conjuga te vaccine, 13 valent Delmi Aichholz ZIGZAG TUNNEL ELASTIC OPERATOR Work Phone: [facility] 01-23-2016 seasonal influenza, intradermal, preservative free Delmi Aichholz ZIGZAG TUNNEL ELASTIC OPERATOR Work Phone: [facility] Payers Date Payer Category Payer Self-pay [id number] 2021 Medicare ANTHEM MEDICARE ADVANTAGE ANTHEM MEDICARE ADVANTAGE [id number] 2021-Present [address] [place] [address] [id number] 2021 Medicare (Managed Care) [facility] [id number] 1959 Medicare [id number] 1950 Unknown [id number] .[id number]. 2.593 1950 Unknown [id number] .840.1.973914.3.579. 2.593 1950 Unknown [id number] 2.16.840.1.265926.3.579. 2.593 1951 Unknown [id number] 2.16.840.1.229358.3.579. 2.1259 1951 Unknown [id number] 2.16.840.1.756612.3.579. 2.1258 1951 Unknown [id number] 2.16.840.1.433151.3.579. 2.125 1950 Unknown [id number] 2.16.840.1.023047.3.579. 2.125 1951 Unknown [id number] 2.16.840.1.892907.3.579. 2.9 1950 Unknown [id number] 2.16.840.1.695278.3.579. 2.1258 1951 Unknown [id number] 2.16.840.1.175912.3.579. 2.1259 1951 Unknown [id number] 2.16.840.1.319681.3.579. 2.1258 1951 Unknown [id number] 2.16.840.1.435268.3.579. 2.1259 1951 Unknown [id number] 2.16.840.1.090990.3.579. 2.1258 1951 Unknown [id number] 2.16.840.1.445408.3.579. 2.125 1951 Unknown [id number] 2.16.840.1.065837.3.579. 2.1258 1950 Unknown [id number] 2.16.840.1.275268.3.579. 2.125 Unknown [place] 1 [id number] Unknown Other1 (STD) [id number] Unknown [id number] [id number]. 2.531 Social History Date Type Detail Facility [facility] Work Phone: Start: 1950 Sex Assigned At Female F [facility] Start: 03-29-2023 End: 11-12-2023 Sex Assigned At [facility] Start: 07-28-1973 End: 11-08-2023 Tobacco smoking status NHIS Smokes tobacco daily [facility] Start: 07-28-1973 History of tobacco use Cigarette Smo ker [facility] Start: 11-07-2022 End: 11-08-2023 Tobacco use and exposure Smokeless tobacco non-user [facility] Start: 05-03-2023 End: 05-28-2024 Alcohol intake Lifetime non-drinker (finding) [facility] [...] to any clubs or organizations such as restorationist groups, unions, fraternal or athletic groups, or [...] to buy more. Never true [facility] Start: 05-01-2024 Tobacco smoking stat [facility] Smoker (finding) [facility] Start: 05-01-2024 Sex Patient sex un known (finding) [facility] Goals Date Patient Goal Desired Activity /State Clinical Notes 11-26-2021 to 05-28-2024 Jovan Ortiz NP - 05/28/2024 10:37 AM Earnestine Ortiz NP - 05/28/2024 10:36 AM Earnestine Ortiz NP - 05/28/2024 10:30 AM Adalgisa Campos, DO - 05/25/2024 1:15 PM EST Note Date & Type Note Facility 05-28-2024 History of Presen t illness Narrative Associated Problem(s): Hypertriglyceridemia (CMS/HCC) Most recent Lipid Panel Triglycerides were still elevated at 313 but a decrease from previous of 430. Pt discussed initiating Fenofibrate with Crystal Evaluator- he recommended and initiated Aspirin 81mg at this time; Current Regimen Crestor 40mg; Given hx of Hypothyroidsim and prediabtes will give time to make lifestyle modifications and allow TSH levels to normalize then recheck Lipid Panel in 3 months. If Triglycerides are still elevated will discuss with Cardiology recommendations moving forward. Associated Problem(s): Prediabetes Most recent labs: hemoglobin A1C 5.9%. Will recheck in 3 months. Images from the original note were not included. Subjective Patient ID: Bertha Galarza is a 74 y.o. female who presents for Follow-up. HPI Prediabtetes: Most recent labs: hemoglobin A1C 5.9%. Will recheck in 6 months. Lipid Panel elevated: Current Regimen Crestor 40mg; Given hx of Hypothyroidsim and prediabtes will give time to make lifestyle modifications and allow TSH levels to normalize then recheck Lipid Panel in 3 months. Review of Systems Constitutional: Negative for activity [...] intolerance, heat intolerance, polydipsia, polyphagia and polyuria. Objective Physical Exam Vitals reviewed. Constitutional: Appearance: Normal appearance. HENT: Right Ear: Tympanic membrane normal. Left Ear: [...] soft. Musculoskeletal: General: Normal range of motion. Skin: General: Skin is warm and dry. Capillary Refill: Capillary refill takes less than 2 seconds. Neurological: Mental Status: She is alert and oriented to person, place, and time. Assessment/Plan Problem List Items Addressed This Visit Hypertriglyceridemia (CMS/HCC) Most recent Lipid Panel Triglycerides were still elevated at 313 but a decrease from previous of 430. Pt discussed initiating Fenofibrate with Crystal Evaluator- he recommended and initiated Aspirin 81mg at this time; Current Regimen Crestor 40mg; Given hx of Hypothyroidsim and prediabtes will give time to make lifestyle modifications and allow TSH levels to normalize then recheck Lipid Panel in 3 months. If Triglycerides are still elevated will discuss with Cardiology recommendations moving forward. Prediabetes - Primary Most recent labs: hemoglobin A1C 5.9%. Will recheck in 3 months. documented in this encounter [facility] 05-25-2024 Note Right Eye Quality was good. Scan locations included subfoveal. Progression has been stable. Findings include normal observations. Left Eye Quality was good. Scan locations included subfoveal. Progression has been stable. Findings include abnormal foveal contour. Notes Good scan with normal appearance right eye (OD) [facility] 05-25-2024 History of Presen t illness Narrative Assessment/Plan Epiretinal membrane (ERM) of both eyes - status post (s/p) pars plana vitrectomy (PPV) / Macular Peel both eyes (OU). Dr. Slaughter for macular hole. 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 Blepharitis both eyes (OU) - Blepharitis, posterior type OU - The patient exhibits inspissated meibomian glands. Warm compresses, lid massage and lid scrubs were recommended. documented in this encounter [facility] 05-01-2024 Procedure note [facility] enter 05-01-2024 History and physi samara note [facility] C enter 04-13-2024 History of Present illness Narrative Associated Problem(s): Tobacco dependence The patient has been advised of the risks of continued smoking: stroke, PA, all forms of cancer, lung disease, and . Options for quitting smoking include: cold turkey, hypnosis, acupuncture, nicotine replacement meds (gum, lozenges, and patches), Buproprion, and Varenicline. At this time pt is encouraged to evaluate their goals for wanting to quit smoking, and reach out to provider when ready to start this process Associated Problem(s): Acute non-recurrent maxillary sinusitis Doxycycline 100mg twice daily for 10 days Fu if not better Associated Problem(s): Acute URI Differential dx: virus, COVID, Flu, RSV Fluids, steroids, and albuterol inhaler Tylenol as needed fever Pt started having s/s on night with body aches/pains, chills, headache. Pt states it has progressed to having left ear plugged, tired and itchy eyes, watery eyes, scratchy throat, runny nose, cough with no mucus, no chest pain, sob only when she over exhausts she does smoke, very fatigue. Fever high as 101 on Saturday. Pt has been taking tylenol and mucinex Images from the original note were not included. Bertha Galarza is a 73 y.o. female presents with chief complaint of Fever HPI: Sxs started 5 days ago: URI This is a new problem. The current episode started in the past 7 days. The problem has been waxing and waning. The maximum temperature recorded prior to her arrival was 101 - 101.9 F (on Saturday). Associated symptoms include congestion, coughing, ear pain (left), headaches (temples and frontal), joint pain, rhinorrhea, sinus pain, sneezing and wheezing. Pertinent negatives include no abdominal pain, chest pain, diarrhea, dysuria, joint swelling, nausea, neck pain, plugged ear sensation, rash, sore throat (scratchy), swollen glands or vomiting. She has tried acetaminophen (mucinex, did not test for COVID) for the symptoms. The treatment provided mild relief. SUBJECTIVE: MEDICATIONS: Current Outpatient Medications Medication Instructions albuterol HFA 90 mcg/act inhaler 2 puffs, Inhalation, Every 6 hours PRN aspirin 81 mg, Daily doxycycline (VIBRA-TABS) 100 mg, Oral, 2 times daily, Take with a full glass of water and do not lie down for at least 30 minutes after. fish oil concentrate 2 g, Oral, 2 times daily fluticasone (Flonase) 50 MCG/ACT nasal spray 1 spray, Each Nostril, Daily RT levothyroxine (SYNTHROID) 75 mcg, Oral, Daily before breakfast montelukast (Singulair) 10 MG tablet predniSONE (DELTASONE) 20 mg, Oral, 2 times daily with meals rosuvastatin (CRESTOR) 40 mg, Oral, Daily ALLERGIES: Allergies Allergen Reactions Atorvastatin Other myalgias Penicillins Hives, Itching and Rash REVIEW OF SYMPTOMS: Review of Systems Constitutional: Positive for fever. Negative for appetite change and chills. HENT: Positive for congestion, ear pain (left), rhinorrhea, sinus pain and sneezing. Negative for sore throat (scratchy). Eyes: Negative for pain, discharge, redness and visual disturbance. Respiratory: Positive for cough and wheezing. Negative for shortness of breath. Cardiovascular: Negative for chest pain, palpitations and leg swelling. Gastrointestinal: Negative for abdominal pain, blood in stool, constipation, diarrhea, nausea and vomiting. Genitourinary: Negative for difficulty urinating, dysuria and frequency. Musculoskeletal: Positive for joint pain. Negative for arthralgias, back pain, joint swelling, myalgias and neck pain. Skin: Negative for rash and wound. Neurological: Positive for headaches (temples and frontal). Negative for dizziness, tremors, seizures and syncope. Psychiatric/Behavioral: Negative for behavioral problems, self-injury and suicidal ideas. The patient is not nervous/anxious. Hematological: Does not bruise/bleed easily. Endocrine: Negative for polydipsia, polyphagia and polyuria. Allergic/Immunologic: Negative for environmental allergies and food allergies. PAST MEDICAL HISTORY Past Medical History: Diagnosis Date Actinic keratosis Cancer ([facility]/HCC) [id number] Cataract Dry eyes Family history of thyroid problem High cholesterol ([facility]/HCC) Hx of breast cancer 2006 Personal history of other medical treatment thyroid Past Surgical History: Procedure Laterality Date CARPAL TUNNEL RELEASE Right 04/05/2023 DR FIGUEROA CATARACT EXTRACTION INTRAOCULAR LENS INSERTION 02/2023 KNEE SURGERY Left 2005 Dr Gr OTHER SURGICAL HISTORY 05/2020 Nodule removed on esophgus PARS PLANA VITRECTOMY W/ EMP STRIPPING Bilateral 2021 [facility] TOTAL KNEE ARTHROPLASTY Left 09/21/2021 DR GR TRIGGER FINGER RELEASE Right 02/07/2021 (R) MF ; DR GR family history includes Cancer in her father, sister, and another family member; Diabetes in her mother; Stroke in her mother. OBJECTIVE: Visit Vitals BP 110/78 (BP Location: Left arm, Patient Position: Sitting, BP Cuff Size: Adult long) Pulse 86 Temp 97.6 F (Temporal) Resp 19 Ht 5' 6 Wt 196 lb LMP (LMP Unknown) SpO2 95% BMI 31.64 kg/m OB Status Postmenopausal Smoking Status Every Day BSA 2.03 m Physical Exam Vitals and nursing note reviewed. Constitutional: General: She is not in acute distress. Appearance: Normal appearance. HENT: Head: Normocephalic and atraumatic. Right Ear: Tympanic membrane, ear canal and external ear normal. Left Ear: Tympanic membrane, ear canal and external ear normal. Nose: Congestion present. No rhinorrhea. Comments: Maxillary tenderness Mouth/Throat: Mouth: Mucous membranes are moist. Pharynx: No oropharyngeal exudate or posterior oropharyngeal erythema. Eyes: Extraocular Movements: Extraocular movements intact. Conjunctiva/sclera: Conjunctivae normal. Neck: Vascular: No carotid bruit. Cardiovascular: Rate and Rhythm: Normal rate and regular rhythm. Pulses: Normal pulses. Heart sounds: Normal heart sounds. Pulmonary: Effort: Pulmonary effort is normal. Comments: No wheezing, no resp distress, but lungs diminished Abdominal: General: Bowel sounds are normal. There is no distension. Palpations: Abdomen is soft. There is no mass. Tenderness: There is no abdominal tenderness. Musculoskeletal: General: Normal range of motion. Cervical back: Normal range of motion and neck supple. Right lower leg: No edema. Left lower leg: No edema. Lymphadenopathy: Cervical: No cervical adenopathy. Skin: General: Skin is warm and dry. Capillary Refill: Capillary refill takes 2 to 3 seconds. Findings: No rash. Neurological: General: No focal deficit present. Mental Status: She is alert and oriented to person, place, and time. Psychiatric: Mood and Affect: Mood normal. Behavior: Behavior normal. Thought Content: Thought content normal. Judgment: Judgment normal. ASSESSMENT AND PLAN: Follow up if symptoms worsen or fail to improve, for Next scheduled follow-up. Problem List Items Addressed This Visit Tobacco dependence The patient has been advised of the risks of continued smoking: stroke, PA, all forms of cancer, lung disease, and . Options for quitting smoking include: cold turkey, hypnosis, acupuncture, nicotine replacement meds (gum, lozenges, and patches), Buproprion, and Varenicline. At this time pt is encouraged to evaluate their goals for wanting to quit smoking, and reach out to provider when ready to start this process Acute URI Differential dx: virus, COVID, Flu, RSV Fluids, steroids, and albuterol inhaler Tylenol as needed fever Relevant Medications predniSONE (Deltasone) 20 MG tablet albuterol HFA 90 mcg/act inhaler Acute non-recurrent maxillary sinusitis - Primary Doxycycline 100mg twice daily for 10 days Fu if not better Relevant Medications doxycycline (Vibra-Tabs) 100 MG tablet documented in this encounter [facility] 04-13-2024 Instructions Delmi Love NP - 04/13/2024 11:30 AM EST Fluids, rest, atb, steroids, and inhaler If not better contact office documented in this encounter [facility] 03-23-2024 History of Present illness Narrative Skin [...] Hands Examined Digits,nails: Examined Patient wearing nail burundian, Denies dark streaks under finger nails Lymphatics: [...] year skin exam documented in this encounter [facility] 02-27-2024 History of Present illness Narrative Images [...] mg by mouth Daily fish oil concentrate ([place]-3) 1000 MG capsule Take 2 capsules (2 [...] Stephanie Peters OD as Referring Physician (Optometry) Jovan Ortiz NP as Nurse Practitioner (Family Medicine) [...] members, friends, or caretakers Three Word Registration: Deepthi Samuel Mountain Clock Drawing: Normal Clock - 2 Three Word Recall: 2/3 words correct - 2 Total Score (0-5 Points): 4 Pain Assessment Pain Score: 0 - No pain Advance Care Planning Do you have a living will?: No Do you have a medical power of tax attorney?: No Objective : BP 128/64 Pulse [...] Print requisition? Answer: No Electronically signed by Jovan Ortiz NP on February 27, 2024 documented in this encounter [facility] 02-13-2024 History of Present illness Narrative Patient: Bertha Galarza : 1950 PCP: Moustapha De Leon MD SUBJECTIVE This is a 73 y.o. female that presents today for a chief complaint of pain to the right lateral plantar foot. Patient states lesion present for the past few months since painful and present to lateral right foot Patient states pain 10/22 Patient also presents today for mid arch around the plantar fascia on height of the arch left foot particularly prolonged standing and has tried different inserts as well as NSAIDs negative improvement. Rates pain an 11/22 Allergies: Allergies Allergen Reactions Penicillins Hives, Itching and Rash Past Medical History: Past Medical History: Diagnosis Date Actinic keratosis Cancer ([facility]) [id number] Cataract Dry eyes Family history of thyroid problem High cholesterol ([facility]) Hx of breast cancer 2006 Personal [...] min Stress: No Stress Concern Present (11/12/2023) [employer] [place] [employer] - Occupational Stress Questionnaire Feeling of Stress : Not at all Social Connections: Unknown (11/12/2023) Social Connection and Isolation Panel [NHANES] Frequency of Communication with Friends and Family: Once a week Frequency of Social Gatherings with Friends and Family: Once a week Attends Mosque Services: Patient declined Active Member of Clubs [...] pathological diagnosis of specimen. Patient may take [id number] NSAID p.r.n. for pain Application of salinocaine acid medication to lesion/lesions located at right foot Informed pt of risks and benefits of procedure including high reoccurence rate, infection, pain and consent given. Application of DSD post procedure. Patient to continue with oral anti - inflammatories as needed for pain and recommended OTC medications such as tylenol or Ibuprofen Discussed accommodative custom inserts and [id number] cost has not covered by insurance patient may consider in the future but did recommend [id number] inserts at this time Ben Marti DPM documented in this encounter [facility] 12-19-2023 History of Present illness Narrative Associated Problem(s): Prediabetes Dietary tips and recommendations given. Continue to implement lifestyle and dietary modifications. Recheck A1C in February. Associated Problem(s): Hypertriglyceridemia (CMS/HCC) Most recent Lipid Panel Triglycerides were still elevated at 430 Pt discussed initiating Fenofibrate with Crystal Evaluator- he recommended and initiated Aspirin 81mg at this time; Current Regimen Crestor 40mg; Given hx of Hypothyroidsim and prediabtes will give time to make lifestyle modifications and allow TSH levels to normalize then recheck Lipid Panel in 3 months. If Triglycerides are still elevated will discuss with Cardiology recommendations moving forward. Associated Problem(s): Hypothyroid (CMS/HCC) TSH low- decreased levothyroxine to 75mcg. Recheck TSH in 2 weeks. Images from the original note were not included. Subjective Patient ID: Bertha Galarza is a 73 y.o. female who presents for Follow-up. HPI Was seen in Office on 11/17- Several labs ordered. Saw Dr. Campos on 11/08/2023- was noted to have significant plaque in Right eye. Requests extensive review of vascular risks and echocardiogram. EKG: Echo: showed low systolic function EF 50%. Following Cardiology- Dr. Jarrett Initiated on baby aspirin. Lipid Panel elevated: See below; Current Regimen Crestor 40mg; Given hx of Hypothyroidsim and prediabtes will give time to make lifestyle modifications and allow TSH levels to normalize then recheck Lipid Panel in 3 months. omponent Ref Range & Units 1 mo ago (11/18/23) 8 mo ago (04/01/23) 8 mo ago (04/01/23) TRIGLYCERIDES <=150 mg/dL 430 High 0.930 R 356 High CHOLESTEROL <=200 mg/dL 192 184 HDL CHOLESTEROL 40 - 60 mg/dL 46 47 CM Comment: > or =60 mg/dl - LOW CARDIOVASCULAR RISK <40 mg/dl - HIGH CARDIOVASCULAR RISK VLDL CHOLESTEROL mg/dL 86.0 66.0 CM CHOL HDL RATIO 4.2 71.2 R Comment: 3.3 - 4.4 LOW RISK 4.4 - 7.1 AVERAGE RISK 7.1 - 11.0 MODERATE RISK >11.0 HIGH RISK CHOL HDL RATIO 3.9 CM Resulting Agency [facility] Component Ref Range & Units 1 mo ago LDL CHOLESTEROL DIRECT mg/dL 83 Comment: <100 mg/dl OPTIMAL 100-129 mg/dl NEAR OR ABOVE OPTIMAL 130-159 mg/dl BORDERLINE HIGH 160-189 mg/dl HIGH >190 mg/dl VERY HIGH Resulting Agency TB Prediabtetic: Component Ref Range & Units 4 wk ago GLYCOHEMOGLOBIN A1C 4.5 - 6.2 % 5.7 Comment: ADA RECOMMENDED LIMIT 4.0 - 6.0 ADA THERAPEUTIC TARGET < 7.0 ACTION SUGGESTED > 7.0 ESTIMATED AVERAGE GLUCOSE mg/dL 117 Resulting Agency TB Hypothyroidism: TSH low- decreased levothyroxine to 75mcg Component Ref Range & Units 4 wk ago TSH 0.358 - 3.740 uIU/mL 0.209 Low Resulting Agency TB Review of Systems Constitutional: Negative for activity [...] intolerance, heat intolerance, polydipsia, polyphagia and polyuria. Objective Physical Exam Vitals reviewed. Constitutional: Appearance: Normal appearance. HENT: Head: Normocephalic and atraumatic. Right Ear: There is no impacted cerumen. Left Ear: There is impacted cerumen. Nose: Nose normal. Mouth/Throat: Mouth: Mucous membranes [...] Affect: Mood normal. Behavior: Behavior normal. Assessment/Plan Problem List Items Addressed This Visit Hypertriglyceridemia (CMS/HCC) Most recent Lipid Panel Triglycerides were still elevated at 430 Pt discussed initiating Fenofibrate with Crystal Evaluator- he recommended and initiated Aspirin 81mg at this time; Current Regimen Crestor 40mg; Given hx of Hypothyroidsim and prediabtes will give time to make lifestyle modifications and allow TSH levels to normalize then recheck Lipid Panel in 3 months. If Triglycerides are still elevated will discuss with Cardiology recommendations moving forward. Hypothyroid (CMS/HCC) TSH low- decreased levothyroxine to 75mcg. Recheck TSH in 2 weeks. Relevant Orders TSH W/REFLEX TO FT4 Prediabetes - Primary Dietary tips and recommendations given. Continue to implement lifestyle and dietary modifications. Recheck A1C in February. Impacted cerumen of left ear Relevant Medications carbamide peroxide (Debrox) 6.5 % otic solution Dexa scan with next mammogram. documented in this encounter [facility] 12-19-2023 Instructions Jovan Ortiz NP - 12/19/2023 11:30 AM EDT Take Levothyroxine 1 hour BEFORE any other medications or food!!! Take Crestor(Rosuvastatin) At Bedtime!! Dietary recommendations are as follows: I would recommend lowering your saturated fat intake (fried foods/fast foods) and increasing your cardiovascular exercise. I would recommend lowering your carbohydrate (bread/sugary food/alcohol) intake to improve your triglycerides. I recommend increasing your dietary intake of poultry, fish, low-fat dairy products, vegetables, fruits, whole grains, legumes, and nuts. Decrease your dietary intake of sodium, sweets, sweetened beverages, and red meats. In addition, increase your exercise to include 150 minutes per week of moderate-intensity, and 75 minutes per week of vigorous aerobic activity. documented in this encounter [facility] 12-04-2023 Note Cardiology Clinic No te Chief [...] concerns. Julio Cesar Jarrett MD Interventional Cardiology [facility] 05-24-2023 History of Present illness Narrative [...] is normal. Strength additional comments: 5/5 EQUAL PSYCHOMETRICIAN STRENGTH Neurovascular Right Right neurovascular exam is [...] evaluation. JANINA Jackson documented in this encounter [facility] 11-26-2021 Evaluation note Encounter Date Diagnosis Assessment [...] understanding and is agreeable to treatment plan [employer] Other Evaluation noteNo assessment information available [facility] Work Phone: Evaluation note* Diagnosis S/P carpal tunnel release- Primary Other postprocedural status Right hand pain Pain in soft tissues of limb Arthritis of carpometacarpal (CMC) joint of right thumb documented in this encounter [facility]* Diagnosis Hypertriglyceridemia (CMS/HCC)- Primary Pure [...] unspecified type (CMS/HCC) documented in this encounter [facility]* Diagnosis Hypertriglyceridemia (CMS/HCC)- Primary Pure [...] tissues of limb documented in this encounter [facility]* Diagnosis Hypertriglyceridemia (CMS/HCC)- Primary Pure [...] Angioma of skin documented in this encounter [facility]* [...] neoplasm of colon documented in this encounter [facility]* Diagnosis Prediabetes- Primary Other abnormal glucose Hypertriglyceridemia (CMS/HCC) Pure hyperglyceridemia Hypothyroidism, unspecified type (CMS/HCC) Impacted cerumen of left ear Impacted cerumen documented [facility] this [facility]* Diagnosis Hypertriglyceridemia (CMS/HCC)- Primary Pure hyperglyceridemia Bilateral posterior capsular opacification Unspecified after-cataract Hollenhorst plaque, 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 Mixed hyperlipidemia (CMS/HCC) Mixed hyperlipidemia Short of breath on exertion Chest heaviness Other chest pain Prediabetes- Primary Other abnormal glucose Hypertriglyceridemia (CMS/HCC) Pure hyperglyceridemia Hypothyroidism, unspecified type (CMS/HCC) Impacted cerumen of left ear Impacted cerumen Acute non-recurrent maxillary sinusitis- Primary Tobacco dependence Tobacco use disorder Acute URI Acute upper respiratory infections of unspecified site documented [facility] this encounter [facility]* Diagnosis Hypertriglyceridemia (CMS/HCC)- Primary Pure hyperglyceridemia Bilateral posterior capsular opacification Unspecified after-cataract Hollenhorst plaque, 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 Mixed hyperlipidemia (CMS/HCC) Mixed hyperlipidemia Short of breath on exertion Chest heaviness Other chest pain Prediabetes- Primary Other abnormal glucose Hypertriglyceridemia (CMS/HCC) Pure hyperglyceridemia Hypothyroidism, unspecified type (CMS/HCC) Impacted cerumen of left ear Impacted cerumen Acute non-recurrent maxillary sinusitis- Primary Tobacco dependence Tobacco use disorder Acute URI Acute upper respiratory infections of unspecified site Age-related osteoporosis without current pathological fracture (CMS/HCC)- Primary documented in this encounter [facility]* Diagnosis Hypertriglyceridemia (CMS/HCC)- Primary Pure hyperglyceridemia Bilateral posterior capsular opacification Unspecified after-cataract Hollenhorst plaque, 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 Mixed hyperlipidemia (CMS/HCC) Mixed hyperlipidemia Short of breath on exertion Chest heaviness Other chest pain Prediabetes- Primary Other abnormal glucose Hypertriglyceridemia (CMS/HCC) Pure hyperglyceridemia Hypothyroidism, unspecified type (CMS/HCC) Impacted cerumen of left ear Impacted cerumen Acute non-recurrent maxillary sinusitis- Primary Tobacco dependence Tobacco use disorder Acute URI Acute upper respiratory infections of unspecified site Epiretinal membrane (ERM) of both eyes- Primary Hollenhorst plaque, 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 Dry eyes Unspecified tear film insufficiency Blepharitis of upper and lower eyelids of both eyes, unspecified type documented [facility] this [facility] Diagnosis Hypertriglyceridemia (CMS/HCC)- Primary Pure hyperglyceridemia Bilateral posterior capsular opacification Unspecified after-cataract Hollenhorst plaque, 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 Mixed hyperlipidemia (CMS/HCC) Mixed hyperlipidemia Short of breath on exertion Chest heaviness Other chest pain Prediabetes- Primary Other abnormal glucose Hypertriglyceridemia (CMS/HCC) Pure hyperglyceridemia Hypothyroidism, unspecified type (CMS/HCC) Impacted cerumen of left ear Impacted cerumen Acute non-recurrent maxillary sinusitis- Primary Tobacco dependence Tobacco use disorder Acute URI Acute upper respiratory infections of unspecified site Prediabetes- Primary Other abnormal glucose Hypertriglyceridemia (CMS/HCC) Pure hyperglyceridemia documented in this encounter [facility] and physical note Author Taiwo Rosa [facility] Note Date/Time May 01, 2024 1 0:22am [facility] [address] [place] [address] Gastroenterology H&P Signed Patient: Bertha Galarza MR#: [id number] : 1950 Acct:[id number] Age/Sex: 74 / F Adm Date: 5 Loc: Room: Type: [facility] Attending Dr: Taiwo Rosa MD Copies to: ALEX SanfordC Taiwo Rosa MD~ Date of Service: 05/01/2024 HISTORY & PHYSICAL: Patient's history with special attention to the cardiovascular, pulmonary systems and the current problem was reviewed with the patient immediately prior to the procedure. Present medications and doses reviewed in the EMR. Allergies and pertinent laboratory tests were also reviewedat this time in the EMR. The physical examination, as below, was then performed. Indication, assessment and HPI: This is a 74-year-old female who presents for colonoscopy to evaluate positive Cologuard. Remote colonoscopy reportedly normal. Family history of GI malignancy? Yes, sister with colorectal cancer inher 50s PHYSICAL EXAMINATION Mouth and Pharynx : moist mucus membranes, normal dentition Eyes: EOM intact b/l, normal sclera Pulmonary: normal respiratory effort, able to speak in complete sentences Neurological: alert and oriented x3, moves all extremities Skin: non-jaundiced, warm and dry Abdomen: non-distended, normal to inspection Psych: Mental status and mood grossly normal REVIEW OF SYSTEMS Constitutional: Denies malaise, fevers Cardiovascular: Denies chest pain, palpitations Respiratory: Denies shortness of breath, wheezing Gastrointestinal: Per HPI Genitourinary: Denies dysuria, polyuria Musculoskeletal: Denies joint swelling, joint stiffness Neurological: Denies numbness, tingling Integumentary: Denies rashes, skin lesions Endocrine: Denies fatigue, weight loss Written informed consent obtained from the patient. Risks (including but not limited to perforation, infection, bloating, bleeding, need for emergent surgeryand loss of life), benefits and alternatives explained and questions answered. The patient verbalized understanding. Based on history patient is an appropriate candidate for the procedure. Taiwo Rosa MD Documented By: Taiwo Rosa MD 05/01/24 1021 Signed By: <Electronically signed by Taiwo Rosa MD> 05/01/24 1022 [facility] Work Phone: History general Narrative - Reported* Type Description Date Medical History Hypothyroid Medical History Hypercholesterolemia Medical History Breast cancer Surgical History colonoscopy Surgical History cholecystectomy Surgical History knee arthroscopy Surgical History tonsillectomy and adenoidectomy Surgical History wisdom teeth Surgical History laparoscopy Surgical History tubal ligation Surgical History biopsy Surgical History left knee replacement 10/04 Hospitalization History see above [facility] Other Chief Complaint and Reason for Visit Chief Complaint lung mass Chief Complaint R30.0 Chief Complaint Admit Date positive cologuard May 01, 2024 9 :29am positive cologuard May 01, 2024 1 0:21am Advance Directives No Advanced Directives Records Found Advance Directive Response Recorded Date/ Time Advance Directives No September 08 2:46pm Advance Directive Response Recorded Date/ Time Advance Directives No September 08 2 1:46pm Summary Purpose Family History No Family History Records Found Relationship Condition Age at Onset Recorded Date/T cindi brother Unknown father Unknown Malignant neoplasm Unknown sister Heart disease Unknown Unknown Malignant neoplasm of colon Unknown Additional Source Comments Care Teams (unrecognized sec tion and content) Team Status: Inactive Member Role Status Dates Jose David Godwin , Primary Care Provider, Attending Pr ovider Active Sadi Gr Jr, Other Provider Active Team Status: Active Member Role Status Dates Jose David Godwin , Primary Care Provider Active Team Status: Inactive Member Role Status Dates Jose David Godwin , Primary Care Provider Active Yuliet Perez APRN Attending Provider Active Manager Practice Relationship Specialty Start Date End Date Jose David Godwin MD [address] [place] [address] PCP - General Family Medicine 10/11/22 Manager Practice Relationship Specialty Start Date End Date Jose David Godwin MD [address] [place] [address] PCP - General Family Medicine 10/11/22 Manager Practice Relationship Specialty Start Date End Date Moustapha De Leon MD [address] [place] [address] PCP - General Family Medicine 11/08/23 Stephanie Peters OD [address] [place] [address] Referring Physician Optometry 11/08/23 Jovan Ortiz NP [address] [place] [address] Nurse Practitioner Family Medicine 11/13/23 Manager Practice Relationship Specialty Start Date End Date Moustapha De Leon MD [address] [place] [address] PCP - General Family Medicine 11/08/23 Stephanie Peters, OD [address] [facility] [place] [address] Referring Physician Optometry 11/08/23 Jovan Ortiz NP [address] [place] [address] Nurse Practitioner Family Medicine 11/13/23 Manager Practice Relationship Specialty Start Date End Date Moustapha De Leon MD [address] [place] [address] PCP - General Family Medicine 11/08/23 Stephanie Peters OD [address] [facility] [place] [address] Referring Physician Optometry 11/08/23 Jovan Ortiz NP [address] [place] [address] Nurse Practitioner Family Medicine 11/13/23 Manager Practice Relationship Specialty Start Date End Date Moustapha De Leon MD [address] [place] [address] PCP - General Family Medicine 11/08/23 Stephanie Peters, OD [address] [facility] [place] [address] Referring Physician Optometry 11/08/23 Jovan Ortiz NP [address] [place] [address] Nurse Practitioner Family Medicine 11/13/23 Manager Practice Relationship Specialty Start Date End Date Moustapha De Leon MD [address] [place] [address] PCP - General Family Medicine 11/08/23 Stephanie Peters, OD [address] [address] Referring Physician Optometry 11/08/23 Jovan Ortiz NP [address] [place] [address] Nurse Practitioner Family Medicine 11/13/23 Manager Practice Relationship Specialty Start Date End Date Moustapha De Leon MD [address] [place] [address] PCP - General Family Medicine 11/08/23 Stephanie Peters, OD [address] [place] [address] Referring Physician Optometry 11/08/23 Jovan Ortiz NP [address] [place] [address] Nurse Practitioner Family Medicine 11/13/23 Manager Practice Relationship Specialty Start Date End Date Moustapha De Leon MD [address] [place] [address] PCP - General Family Medicine 11/08/23 Stephanie Peters, OD [address] [facility] [place] [address] Referring Physician Optometry 11/08/23 Jovan Ortiz NP [address] [place] [address] Nurse Practitioner Family Medicine 11/13/23 Manager Practice Relationship Specialty Start Date End Date Moustapha De Leon MD [address] [place] [address] PCP - General Family Medicine 11/08/23 Stephanie Peters, OD [address] [facility] [place] [address] Referring Physician Optometry 11/08/23 Jovan Ortiz NP [address] [place] [phone] Nurse Practitioner Family Medicine 11/13/23 Manager Practice Relationship Specialty Start Date End Date Moustapha De Leon MD [address] [place] [address] PCP - General Family Medicine 11/08/23 Stephanie Peters, OD [address] [facility] [place] [address] Referring Physician Optometry 11/08/23 Jovan Ortiz NP [address] [place] [address] Nurse Practitioner Family Medicine 11/13/23 Manager Practice Relationship Specialty Start Date End Date Moustapha De Leon MD [address] [place] [address] PCP - General Family Medicine 11/08/23 Stephanie Peters, OD [address] [place] [address] Referring Physician Optometry 11/08/23 Jovan Ortiz NP [address] [place] [address] Nurse Practitioner Family Medicine 11/13/23 Manager Practice Relationship Specialty Start Date End Date Moustapha De Leon MD [address] [place] [address] PCP - General Family Medicine 11/08/23 Stephanie Peters, OD [address] [facility] [place] [address] Referring Physician Optometry 11/08/23 Jovan Ortiz NP [address] [place] [address] Nurse Practitioner Family Medicine 11/13/23 Manager Practice Relationship Specialty Start Date End Date Moustapha De Leon MD [address] [place] [address] PCP - General Family Medicine 11/08/23 Stephanie Peters, OD [address] [place] [address] Referring Physician Optometry 11/08/23 Jovan Ortiz NP [address] [place] [address] Nurse Practitioner Family Medicine 11/13/23 Manager Practice Relationship Specialty Start Date End Date Moustapha De Leon MD [address] [place] [address] PCP - General Family Medicine 11/08/23 Stephanie Peters, OD [address] [place] [address] Referring Physician Optometry 11/08/23 Jovan Ortiz NP [address] [place] [address] Nurse Practitioner Family Medicine 11/13/23 Manager Practice Relationship Specialty Start Date End Date Moustapha De Leon MD [address] [place] [address] PCP - General Family Medicine 11/08/23 Stephanie Peters, OD [address] [place] [address] Referring Physician Optometry 11/08/23 Jovan Ortiz NP [address] [place] [address] Nurse Practitioner Family Medicine 11/13/23 Team Status: Active Member Role Status Dates Jovan Ortiz NP-C Primary Care Provider Ac tive Team Status: Inactive Member Role Status Dates Taiwo Rosa MD Attending Provider Active S tart: May 01, 2024 End: May 01, 2024 Jovan Ortiz [employer] T[employer] ELASTIC OPERATOR-C Primary Care Provider Ac tive Start: May 01, 2024 End: May 01, 2024 Team Status: Active Member Role Status Dates Taiwo Rosa MD Attending Provider, Other Provider Active Start: May 01, 2024 Jovan Ortiz ZIGZAG TUNNEL ELASTIC OPERATOR-C Primary Care Provider Active Start: April Manager Practice Relationship Specialty Start Date End Date Moustapha De Leon MD [address] [place] [address] PCP - General Family Medicine 11/08/23 Stephanie Peters, HORACE [address] [place] [address] Referring Physician Optometry 11/08/23 Jovan Ortiz NP [address] [place] [address] [place] [address] Nurse Practitioner Family Medicine 11/13/23 Manager Practice Relationship Specialty Start Date End Date Moustapha De Leon MD [address] [place] [address] PCP - General Family Medicine 11/08/23 Stephanie Peters OD [address] [facility] [place] [address] Referring Physician Optometry 11/08/23 Jovan Ortiz NP [address] [place] [address] Nurse Practitioner Family Medicine 11/13/23 Manager Practice Relationship Specialty Start Date End Date Moustapha De Leon MD [address] [place] [address] PCP - General Family Medicine 11/08/23 Stephanie Peters, OD [address] [facility] [place] [address] Referring Physician Optometry 11/08/23 Jovan Ortiz NP [address] [place] [address] Nurse Practitioner Family Medicine 11/13/23 Manager Practice Relationship Specialty Start Date End Date Moustapha De Leon MD [address] [place] [address] PCP - General Family Medicine 11/08/23 Stephanie Peters, OD [address] [facility] [place] [address] Referring Physician Optometry 11/08/23 Jovan Ortiz NP [address] [place] [address] Nurse Practitioner Family Medicine 11/13/23 Goals (unrecognized [...] Reason Comments Follow-up Reason Comments Skin Check Reason Comments Fever INFORMATION SOURCE (unrecogn ized section and content) DATE CREATED AUTHOR 07/08/2022 [facility] DATE CREATED AUTHOR AUTHOR'S ORGANIZ ATION 05/13/2024 [facility] DATE CREATED AUTHOR AUTHOR'S ORGANIZ ATION 05/30/2024 [facility] EPIC DATE CREATED AUTHOR AUTHOR'S ORGANIZ ATION 06/04/2024 [facility] FOR RECORDS PERTAINING TO PATIENTS WHO [...] BE BASED ON THE PRIMARY CLINICAL RECORDS. [email or web address] provides no warranty or guarantee of the accuracy or completeness of information in this document.
[2024-06-05 10:31] LABS: Calcium 9.3 mg/dL (8.5-10.1)
== END 2024-06-05 09:53 | disposition home or self-care (01) ==
LOC: LAB 09:53
DX: M81.0 Age-related osteoporosis without current pathological fracture (principal)
CPT/HCPCS: 36415; 82306; 82310

== ENCOUNTER 2024-06-19 10:00 | Outpatient (OUT) | payer MEDICARE, SELFPAY ==
--- OUTSIDE RECORDS SUMMARY | 2024-06-19 10:19 | XMS_ITS | CCD ---
Author Organization [facility] Care Team Providers Care Hris Administrator Name Role Phone DO Jose David Godwin Primary Care Provider [phone] DO Jose David Godwin Attending Provider [phone] DO Sadi Gr Jr Other Provider Yuliet Perez DO Jose David Godwin Primary Care Provider LUANN Perez Attending Provider [phone] SHAIKH Lorelei ENGEL Admitting Unavailable SHAIKH Lorelei ENGEL Attending Unavailable SHAIKH Lorelei ENGEL Primary Care Unavailable WINDER, DR KARI Stern Consulting Unavailable SHAIKH Lorelei ENGEL Consulting Unavailable CITLALI, DR GARDINER Admitting Unavailable PHOENIX, DR GARDINER Attending Unavailable PHOENIX, DR GARDINER Primary Care Unavailable PHOENIX, DR GARDINER Consulting Unavailable PHOENIX, DR GARDINER Admitting Unavailable PHOENIX, DR GARDINER Attending Unavailable PHOENIX, DR GARDINER Primary Care Unavailable WINDER, DR KARI Stern Consulting Unavailable PHOENIX, DR GARDINER Consulting Unavailable Citlali MORENO, Jose David Mclean Primary Care Provider Stephanie Peters OD Unavailable Moustapha De Leon MD Primary Care Provider [phone] Jovan Ortiz NP Unavailable [phone] Taiwo Rosa MD Attending Provider [phone] Diana CUSTOMER SERVICE REP-CJovan Primary Care Provid er Taiwo Rosa Attending Unavailable Taiwo Rosa Admitting Unavailable Jovan Ortiz Primary Care Unavaila DANDY Cruz Attending Unavailable JOVAN ORTIZ Attending SHAIKH Wu Attending Unavailable AME HONG Attending Unavailable AME HONG Referring Unavailable DANDY CORREA Attending Unavailable JOVAN ORTIZ Attending JOVAN Sewell Referring JOVAN Sewell Attending BEN Boothe Attending Unavailable JOVAN ORTIZ Attending UnavailBENJAMIN Hardwick Attending Unavailable DELIM LOVE Attending Unavailable JULIO CESAR BORREGO Attending Unavailable JULIO CESAR BORREGO Attending Unavailable Allergies Allergy Classification Reported Allergen(s) Allergy Type Date of Onset Reaction(s) Facility (1 source) Penicillin G Drug Allergy rash [facility] Other (1 source) Penicillin Drug Allergy 0 [facility] Repository (20 sources) Penicillins; Translations: [PENICILLINS] Drug Allergy 3 Hives, Itching, Rash [facility] Healthcare (12 sources) atorvastatin; Translations: [ATORVASTATIN] Drug Allergy 4 Other [facility] Healthcare (1 source) Penicillin Drug Allergy 5 [facility] Repository Medications Current Medications Medication Drug Class(es) Dates Sig (Normalized) Sig (Original) [id number] actuat albuterol 0.09 mg/actuat metered dose inhaler (11 sources) beta2-Adrenergic Agonist Start: 04-13-2024 End: 05-13-2024 take 2 puff(s) by inhalation every six hours for wheezing albuterol HFA 90 mcg/act inhaler Indications: Acute URI Inhale 2 puffs every 6 (six) hours if needed for wheezing or shortness of breath 18 g 04/13/2024 Active aspirin 81 mg oral tablet (18 sources) Platelet Aggregation Inhibitor, Nonsteroidal Anti-inflammatory Drug [...] 4 days. 15 mL 12/19/2023 12/23/2023 Active cholecalciferol 0.125 mg oral tablet (1 source) Vitamin D Start: 06-07-2024 End: 07-07-2024 take 1 tablet by mouth once daily cholecalciferol (Vitamin D-3) 125 MCG (5000 UT) tablet Indications: Vitamin D deficiency Take 1 tablet (125 mcg) by mouth Daily 30 tablet 1 06/07/2024 07/07/2024 Active docosahexaenoic acid 120 mg / eicosapentaenoic acid 180 mg oral capsule (19 sources) Start: 02-24-2024 End: 02-23-2025 take 1 capsule by mouth at bedtime fish oil concentrate (Palmetto-3) 1000 MG capsule Indications: Mixed hyperlipidemia (CMS/HCC) [...] montelukast (Singulair) 10 MG tablet 10/15/2022 Active Palmetto 5-Edc-Akn-Fish Oil (Fish Oil) 100-160-1,000 mg capsule (1 source) Start: 04-20-2024 take 100-160 capsules by mouth twice daily Palmetto 8-Szq-Hib-Fish Oil (Fish Oil) 100-160-1,000 mg capsule Active [...] Documented Da te Episodic/Chronic Cancer of breast (11 sources) Malignant tumor of breast ; Translations: [...] that caused by tuberculosis or sexually transmitteddisease) (8 sources) Blepharitis of upper and lower eyelids of bilateral eyes; Translations: [Unspecified blepharitis right eye, upper and lower eyelids] Onset: 05-25-2024 05-25-2024 Episodic Neoplasms of unspecified nature or uncertain behavior (2 sources) Neoplasm of uncertain behavior of skin; Translations: [Neoplasm of uncertain behavior of skin] 02-13-2024 Episodic Nutritional deficiencies (3 sources) Vitamin D deficiency; Translations: [Vitamin D deficiency, unspecified] Onset: 06-07-2024 06-07-2024 Chronic Osteoarthritis (1 source) Arthritis of first carpometacarpal joint of right hand; Translations: [Unilateral primary osteoarthritis of first carpometacarpal joint, right hand] 05-24-2023 Chronic Osteoporosis (3 sources) Senile osteoporosis; Translations: [Age-related osteoporosis without current pathological fracture] Onset: 06-07-2024 04-21-2024 Chronic Other and unspecified benign neoplasm [...] right foot] 02-13-2024 Episodic Other gastrointestinal disorders (13 sources) Stool DNA-based colorectal cancer screening positive; [...] bilateral] Onset: 11-08-2023 11-08-2023 Chronic Substance-related disorders (14 sources) Tobacco dependence syndrome; Translations: [Nicotine dependence, [...] Documented Da te Episodic/Chronic Cancer of breast (11 sources) History of malignant neoplasm of breast; Translations: [Personal history of malignant neoplasm of breast] Onset: 12-18-2013 04-13-2024 Episodic Cataract (20 sources) After-cataract of bilateral eyes; Translations: [Other secondary cataract, bilateral] Onset: 11-08-2023 Resolved: 05-25-2024 11-08-2023 Chronic Genitourinary symptoms and ill-defined conditions (1 source) Dysuria Onset: 11-26-2021 Resolved: 11-26-2021 Episodic Mood disorders (18 sources) Mood disorders Onset: 02-27-2024 02-27-2024 Other ear and sense organ disorders (20 sources) Impacted cerumen in left ear; Translations: [Impacted cerumen, left ear] Onset: 12-19-2023 12-19-2023 Episodic Other eye disorders (20 sources) Dry eyes; Translations: [Dry eye syndrome of bilateral lacrimal glands] Onset: 11-08-2023 11-08-2023 Episodic Other upper respiratory disease (11 sources) Lesion of vocal cord; Translations: [Other [...] Test Name Value Interpretation Reference Range Facility [facility] CALCIUMon 06-05-2024 Calcium [Mass/Vol] 9.3 mg/dL 8.5 - 10. 1 mg/dL [facility] Office Visiton 06-02-2024 Follow-up visit [id number] Bertha Galarza 1950 F Date Provider Department Center 06/02/2024 3848-JULIO CESAR BORREGO Kailee Ly Family History Problem Relation Age of Onset Coronary artery disease Mother Coronary artery disease Sister Coronary artery disease Brother Family Status - Relation Status Age at Mother Sister Brother Level of Service:14798 [place] OFFICE/OUTPATIENT ESTABLISHED LOW MDM 20 MIN Normal [facility] Optical coherence tomography study reporton 05-25-2024 [employer] Intimates Radiology Study observation (narrative) [facility] 05-01-2024 L - -------- Specimen: [id number] Received: 05/01/24 Status: LUCAS Valeria Num: [id number] Spec Type: Surgical Subm Dr: Taiwo Rosa MD Tissues: A Colon Biopsy (CECUM COLON POLYPS) B Colon Biopsy (TRANSVERSE COLON POLYPS) C Colon Biopsy (DESCENDING COLON POLYPS) D Colon Biopsy (SIGMOID COLON POLYP) Procedures: RANDALL/Manuel, Gross/Micro L4/4 -------- Age/ Patient Sex Location Account Attending Physician -------- Bertha Galarza 74/F [id number] Taiwo Rosa MD -------- SPEC NUM: [id number] RECD: 05/01/24 STATUS: LUCAS LIN NUM: [id number] ANGELITA: 05/01/24-[address] [facility] [address]: Taiwo Rosa MD ENTERED: 05/01/24-[address] [facility] [address]: ELI TYPE: Surgical DEPT: S ENTERED BY: [id number] RECV BY: [id number] ORDERED: HE/10, Gross/Micro L4/4 ORDERED: HE/10, Gross/Micro L4/4 Pathological Diagnosis D. Polyps, cecum: [...] submitted in a single cassette. (1, ns, [id number] A) GENE -------- Specimen: [id number] Received: 05/01/24 Status: LUCAS Lin Num: [id number] Spec Type: Surgical Subm Dr: Taiwo Rosa MD Tissues: A Colon Biopsy (CECUM COLON POLYPS) B Colon Biopsy (TRANSVERSE COLON POLYPS) C Colon Biopsy (DESCENDING COLON POLYPS) D Colon Biopsy (SIGMOID COLON POLYP) Procedures: Manuel, Gross/Micro L4/4 -------- Patient: Bertha Galarza [id number] (Continued) -------- Specimen: [id number] Received: 05/01/24 (Continued) Gross Description (Continued) Signed (signature on file) Rik Juárez MD 05/04/24 1453 -------- Specimen: S2 Received: 05/01/24 Status: LUCAS Lin Num: [id number] Spec Type: Surgical Subm Dr: Taiwo Rosa MD Tissues: A Colon Biopsy (CECUM COLON POLYPS) B Colon Biopsy (TRANSVERSE COLON POLYPS) C Colon Biopsy (DESCENDING COLON POLYPS) D Colon Biopsy (SIGMOID COLON POLYP) Procedures: , Gross/Micro L4/4 -------- Patient: Bertha Galarza [id number] (Continued) -------- Specimen: [id number] Received: 05/01/24-133 (Continued) Gross Description (Continued) Part B is [...] specimen entirely submitted in B2. (2, ns, [id number] B) Part C is received in formalin labeled with the patients name, date of , and descending colon are 2 sen-boles, focally erythematous, friable, 0.3 and 0.5 cm in greatest dimension polypoid fragments. The specimen is entirely submitted in a single cassette. (1, ns, [id number] C) Part D is received in formalin labeled [...] submitted in a single cassette. (1, ns, [id number] D) CPT Codes 08953e1 -------- (more content not included)... Normal [facility] MLR HEMOGLOBIN A1Con 024 Glucose [Mass/Vol] 123 mg/dL [facility] HbA1c (Bld) [Mass fraction] 5.9 % 4.5 - 6.2 % [facility] Comment on above: ADA RECOMMENDED LIMI T 4.0 - 6.0 ADA THERAPEUTIC TARGET < 7.0 ACTION SUGGESTED > 7.0 [facility] (FASTING)o n 02-18-2024 CHOL HDL RATIO 3.3 [facility] Comment on above: 3.3 - 4.4 LOW RISK 4.4 - 7.1 AVERAGE RISK 7.1 - 11.0 MODERATE RISK >11.0 HIGH RISK Cholesterol [Mass/Vol] 160 mg/dL NINF - 200 mg/dL [facility] Cholesterol in HDL [Mass/Vol] 49 mg/dL 40 - 60 mg/dL [facility] Comment on above: > or =60 mg/dl - LOW CARDIOVASCULAR RISK <40 mg/dl - HIGH CARDIOVASCULAR RISK Interpretation and review of laboratory results Abnormal [facility] re Magnesium [Mass/Vol] 49 mg/dL [facility] Comment on above: <100 mg/dl OPTIMAL 100-129 mg/dl NEAR OR ABOVE OPTIMAL 130-159 mg/dl BORDERLINE HIGH 160-189 mg/dl HIGH >190 mg/dl VERY HIGH Magnesium [Mass/Vol] 62.6 mg/dL [facility] Triglyceride [Mass/Vol] 313 mg/dL High NINF - 150 mg/dL [facility] TSH W/REFLEX T4on 01-22-2024 TSH Qn 0.892 m[IU]/L [facility] Office Visiton 12-04-2023 Follow-up visit [id number] Bertha Galarza 1950 F Date Provider Department Center 12/04/2023 3848-JULIO CESAR BORREGO CARD [facility] Family History Problem Relation Age of Onset Coronary artery disease Mother Coronary artery disease Sister Coronary artery disease Brother Family Status - Relation Status Age at Mother Sister Brother Level of Service:46997 [place] OFFICE/OUTPATIENT NEW LOW MDM 30 MINUTES Normal [facility] US CAROTID ARTERY DUPLE X BILATERALon 11-20-2023 [...] report is generated using voice recognition reporting (eReceipts). On occasion [employer] erroneously drops words from the report or replaces the spoken word with similar sounding words. Please call with any questions/concerns regarding this report.* Dictated and transcribed 11/25/23/mis This report has been electronically signed and approved by the interpreting radiologist. Electronically Signed Tito Riddle M.D. 2023-11-25 14:40:34 Normal Not Available DIRECT LDLon 07-03-2022 Cholesterol in LDL [Mass/Vol] 174 mg/dL Normal [facility] Comment on above: Performed By: #### D LDL, LIPID, TSH #### [facility] [address] [place] [address] Dr. Radha Farris DLDL NORMAL SEE BELOW Normal [facility] Comment on above: Result Comment: <100 mg/dl OPTIMAL 100 - 129 mg/dl NEAR OR ABOVE OPTIMAL 130 - 159 mg/dl BORDERLINE HIGH 160 - 189 mg/dl HIGH >190 mg/dl VERY HIGH Performed By: #### D LDL, LIPID, TSH #### [facility] [address] [place] [address] Dr. Radha Farris LIPID PROFILEon 07-03-2022 CHOL-HDL RATIO NORM SEE BELOW Normal [facility] Comment on above: Result Comment: 3.3 - 4.4 LOW RISK 4.4 - 7.1 AVERAGE RISK 7.1 - 11.0 MODERATE RISK >11.0 HIGH RISK Performed By: #### D LDL, LIPID, TSH #### [facility] [address] [place] [address] Dr. Radha Farris Cholesterol [Mass/Vol] 395 mg/dL Critically high <=200 [facility] Comment on above: Performed By: #### D LDL, LIPID, TSH #### [facility] [address] [address] [address] Radha Farris Cholesterol in HDL [Mass/Vol] 35 mg/dL Critically low 40-60 [facility] Comment on above: Performed By: #### D LDL, LIPID, TSH #### [facility] [address] [place] [address] Dr. Radha Farris Cholesterol.total/C holesterol in HDL [Mass ratio] 11.3 {ratio} Normal [facility] Comment on above: Performed By: #### D LDL, LIPID, TSH #### [facility] [address] [address] [address] Radha Farris HDL NORMAL > or = 60 mg/dl - LO W CARDIOVASCULAR RISK <40 mg/dl - HIGH CARDIOVASCULAR RISK Normal [facility] Comment on above: Performed By: #### D LDL, LIPID, TSH #### [facility] [address] [address] [address] Radha Farris Triglyceride [Mass/Vol] 935 mg/dL Critically high <=150 [facility] Comment on above: Performed By: #### D LDL, LIPID, TSH #### [facility] [address] [address] [address] Radha Farris TSHon 07-03-2022 TSH 0.906 uIU/mL Normal 0.358-3.740 [facility] Comment on above: Performed By: #### D LDL, LIPID, TSH #### [facility] [address] [address] [address] Radha Farris XR LSPINE 2_3 VIEWSon [...] degenerative facet osteoarthropathy Electronically authenticated by: KARI KAN Date: 2022-07-03 13:22 Normal [facility] MAMM SCREEN 3D RABIA CADon 03-29-2022 MG MAMM SCREEN 3D RABIA CAD Patient: BERTHA GALARZA Exam Date: 03/29/2022 : 1950 Gender:F Ordering : DR JOSE DAVID GODWIN D.O. Admission #: [id number] Family : Order #: [id number] CLICK HERE TO VIEW EXAM RADIOLOGY REPORT [...] cancer at age 55. LOCATION: [facility] BREAST COMPOSITION: Scattered areas fibroglandular density. [...] LUMP SHOULD BE BIOPSIED. Dictated by: Kari Kan MD on 03/29/2022 at 13:21 Approved by: Kari Kan MD on 03/29/2022 at 13:23 Normal [facility] T4on 02-06-2022 T4 [Mass/Vol] 9.60 ug/dL Normal 4.80-13.90 [facility] Comment on above: Performed By: #### T 4, TSH #### [facility] [address] [address] [address] Radha Farris TSHon 02-06-2022 TSH 0.188 uIU/mL Critically low 0.358-3.740 [facility] Comment on above: Performed By: #### T 4, TSH #### [facility] [address] [address] [address] Radha Farris Urine culture routineOrdered By: Yuliet Perez on 11-29-2021 Bacteria identified Cx Nom (U) Escherichia coli [facility] Urinalysis - AUTOMATEDon Appearance (U) clowdy [facility] Other Bilirubin Ql (U) Negative [place] Other Color (U) yellow [facility] Other Glucose Ql (U) Negative [facility] Other Hemoglobin Ql (U) small [facility] Other Ketones Ql (U) Negative [facility] Other Leukocyte esterase Test strip Ql (U) large [facility] Other Nitrite Ql (U) Negative [facility] Other pH (U) 6.0 [pH] [facility] Other Protein Ql (U) 30 [facility] Other Specific gravity (U) [Rel density] 1.020 [facility] Other Urobilinogen (U) [Mass/Vol] 0.2 mg/dL [facility] Other Urinalysis - AUTOMATED [facility] Other Urine Cultureon 11-26-2021 Urine Culture 20,000 [facility] Other Urine Culture <16 Susceptible [facility] Other Urine Culture <8 Susceptible [facility] Other Urine Culture <4 Susceptible [facility] Other Urine Culture <2 Susceptible [facility] Other Urine Culture <1 Susceptible [facility] Other Urine Culture <0.5 Susceptible [facility] Other Urine Culture <32 Susceptible [facility] Other Urine Culture <2/38 Susceptible [facility] Other Vital Signs Date Time Vital Sign Value Performing Clinician Facility 05-28-2024 10:24-0500 Body height 167.6 cm Jovan Ortiz NP Work Phone: [facility] 05-28-2024 10:24-0500 Body mass index (BMI) [Ratio] 32.01 kg/m2 Jovan Ortiz CUSTOMER SERVICE REP Work Phone: [facility] 05-28-2024 10:24-0500 Body temperature 96.3 [degF] Jovan Ortiz CUSTOMER SERVICE REP Work Phone: [facility] 05-28-2024 10:24-0500 Body weight 89.95 kg Jovan Ortiz CUSTOMER SERVICE REP Work Phone: [facility] 05-28-2024 10:24-0500 Diastolic blood pressure 68 mm[Hg] Jovan Ortiz CUSTOMER SERVICE REP Work Phone: [facility] 05-28-2024 10:24-0500 Heart rate 67 /min Jovan Ortiz CUSTOMER SERVICE REP Work Phone: [facility] 05-28-2024 10:24-0500 Respiratory rate 16 /min Jovan Ortiz CUSTOMER SERVICE REP Work Phone: [facility] 05-28-2024 10:24-0500 SaO2% (BldA) [Mass fraction] 95 % Jovan Ortiz CUSTOMER SERVICE REP Work Phone: [facility] 05-28-2024 10:24-0500 Systolic blood pressure 122 mm[Hg] Jovan Ortiz CUSTOMER SERVICE REP Work Phone: [facility] 05-01-2024 11:20-0500 Diastolic blood pressure 60 mm[Hg] Jovan Ortiz CUSTOMER SERVICE REP-C Work Phone: [facility] 05-01-2024 11:20-0500 Heart rate 70 /min Jovan Ortiz CUSTOMER SERVICE REP-C Work Phone: [facility] 05-01-2024 11:20-0500 Respiratory rate 16 /min Jovan Ortiz CUSTOMER SERVICE REP-C Work Phone: [facility] 05-01-2024 11:20-0500 SaO2% (BldA) [Mass fraction] 99 % Jovan Smithtrick CUSTOMER SERVICE REP-C Work Phone: [facility] 05-01-2024 11:20-0500 Systolic blood pressure 112 mm[Hg] Jovan Petersonpatrick CUSTOMER SERVICE REP-C Work Phone: [facility] 05-01-2024 09:46-0500 Body height 167.64 cm Jovan Ortiz CUSTOMER SERVICE REP-C Work Phone: [facility] 05-01-2024 09:46-0500 Body weight 86.18 kg Jovan Ortiz CUSTOMER SERVICE REP-C Work Phone: [facility] 04-13-2024 11:28-0500 Body height 167.6 cm Delmi Jonesholz CUSTOMER SERVICE REP Work Phone: [facility] 04-13-2024 11:28-0500 Body mass index (BMI) [Ratio] 31.64 kg/m2 Delmilea Jonesholz CUSTOMER SERVICE REP Work Phone: [facility] 04-13-2024 11:28-0500 Body temperature 97.59 [degF] Delmi Magdalenahholz CUSTOMER SERVICE REP Work Phone: [facility] 04-13-2024 11:28-0500 Body weight 88.91 kg Delmilea Nicholshholz CUSTOMER SERVICE REP Work Phone: [facility] 04-13-2024 11:28-0500 Diastolic blood pressure 78 mm[Hg] Delmi Aichholz CUSTOMER SERVICE REP Work Phone: [facility] 04-13-2024 11:28-0500 Heart rate 86 /min Delmi Aichholz CUSTOMER SERVICE REP Work Phone: [facility] 04-13-2024 11:28-0500 Respiratory rate 19 /min Delmi Aichholz CUSTOMER SERVICE REP Work Phone: [facility] 04-13-2024 11:28-0500 SaO2% (BldA) [Mass fraction] 95 % Delmi Love CUSTOMER SERVICE REP Work Phone: [facility] 04-13-2024 11:28-0500 Systolic blood pressure 110 mm[Hg] Delmi Love CUSTOMER SERVICE REP Work Phone: [facility] 02-27-2024 10:36-0500 Body height 167.6 cm Jovan Ortiz CUSTOMER SERVICE REP Work Phone: [facility] 02-27-2024 10:36-0500 Body mass index (BMI) [Ratio] 31.51 kg/m2 Jovan Ortiz CUSTOMER SERVICE REP Work Phone: [facility] 02-27-2024 10:36-0500 Body temperature 97.59 [degF] Jovan Ortiz CUSTOMER SERVICE REP Work Phone: [facility] 02-27-2024 10:36-0500 Body weight 88.54 kg Jovan Ortiz CUSTOMER SERVICE REP Work Phone: [facility] 02-27-2024 10:36-0500 Diastolic blood pressure 64 mm[Hg] Jovan Ortiz CUSTOMER SERVICE REP Work Phone: [facility] 02-27-2024 10:36-0500 Heart rate 78 /min Jovan Ortiz CUSTOMER SERVICE REP Work Phone: [facility] 02-27-2024 10:36-0500 Respiratory rate 16 /min Jovan Ortiz CUSTOMER SERVICE REP Work Phone: [facility] 02-27-2024 10:36-0500 Systolic blood pressure 128 mm[Hg] Jovan Ortiz CUSTOMER SERVICE REP Work Phone: [facility] 02-13-2024 13:56-0400 Body height 167.6 cm Ben Roe DPM Work Phone: [facility] 02-13-2024 13:56-0400 Body mass index (BMI) [Ratio] 32.28 kg/m2 Ben Roe DPM Work Phone: [facility] 02-13-2024 13:56-0400 Body weight 90.72 kg Ben Roe DPM Work Phone: [facility] 02-13-2024 13:56-0400 Diastolic blood pressure 80 mm[Hg] Ben Roe DPM Work Phone: [facility] 02-13-2024 13:56-0400 Heart rate 78 /min Ben Roe DPM Work Phone: [facility] 02-13-2024 13:56-0400 Systolic blood pressure 129 mm[Hg] Ben Roe DPM Work Phone: [facility] 12-19-2023 11:36-0400 Body height 167.6 cm Jovan Ortiz CUSTOMER SERVICE REP Work Phone: [facility] 12-19-2023 11:36-0400 Body mass index (BMI) [Ratio] 31.64 kg/m2 Jovan Ortiz CUSTOMER SERVICE REP Work Phone: [facility] 12-19-2023 11:36-0400 Body temperature 97.59 [degF] Jovan Ortiz CUSTOMER SERVICE REP Work Phone: [facility] 12-19-2023 11:36-0400 Body weight 88.91 kg Jovan Ortiz CUSTOMER SERVICE REP Work Phone: [facility] 12-19-2023 11:36-0400 Diastolic blood pressure 68 mm[Hg] Jovan Ortiz CUSTOMER SERVICE REP Work Phone: [facility] 12-19-2023 11:36-0400 Heart rate 75 /min Jovan Ortiz CUSTOMER SERVICE REP Work Phone: [facility] Comment on above: 95% 02 12-19-2023 11:36-0400 Systolic blood pressure 118 mm[Hg] Jovan Ortiz CUSTOMER SERVICE REP Work Phone: [facility] 11-26-2021 11:15-0400 Body height 167.64 cm Yuliet Perze Other [facility] Other 11-26-2021 11:15-0400 Body mass index (BMI) [Ratio] 30.66 kg/m2 Yuliet Perez Other [facility] Other 11-26-2021 11:15-0400 Body temperature 98 [degF] Yuliet Perez Other [facility] Other 11-26-2021 11:15-0400 Body weight 86.18 kg Yuliet Perez Other [facility] Other 11-26-2021 11:15-0400 Diastolic blood pressure 61 mm[Hg] Yuliet Perez Other [facility] Other 11-26-2021 11:15-0400 SaO2% (BldA) [Mass fraction] 98 % Yuliet Perez Other [facility] Other 11-26-2021 11:15-0400 Systolic blood pressure 117 mm[Hg] Yuliet Perez Other [facility] Other Encounters Encounter Date Encounter Type Care Provider Facility Start: 06-07-2024 End: 06-07-2024 Orders Only Delmi Love CUSTOMER SERVICE REP Work Phone: [facility] Comment on above: Prediabetes (Primary Dx); Mixed hyperlipidemia (CMS/HCC); Tobacco dependence Vitamin D deficiency (Primary Dx) Start: 06-05-2024 End: 06-05-2024 [facility] Result Encounter Jovan Ortiz CUSTOMER SERVICE REP Work Phone: [facility] External Department Unsolicited Start: 06-05-2024 End: 06-05-2024 Cl[facility] Result Encounter Jovan Ortiz CUSTOMER SERVICE REP Work Phone: [facility] Unsolicited Start: 06-02-2024 End: 06-02-2024 ambulatory [facility] Start: 05-28-2024 End: 05-28-2024 Bamboo flowsheet Jovan Ortiz CUSTOMER SERVICE REP Work Phone: [facility] Start: 05-28-2024 End: 05-28-2024 Bamboo flowsheet Jovan Ortiz CUSTOMER SERVICE REP Work Phone: [facility] Start: 05-28-2024 End: 05-28-2024 Office outpatient visit 15 minutes Jovan Ortiz CUSTOMER SERVICE REP Work Phone: [facility] Comment on above: Prediabetes (Primary Dx); Hypertriglyceridemia (CMS/HCC) Start: 05-28-2024 End: 05-28-2024 ambulatory JOVAN ORTIZ Not Available Start: 05-25-2024 End: 05-25-2024 Bamboo flowsheet Dandy Correa DO Work Phone: [facility] Start: 05-25-2024 End: 05-25-2024 Bamboo flowsheet Dandy Correa DO Work Phone: [facility] Start: 05-25-2024 End: 05-25-2024 ambulatory DANDY CORREA Not Available Start: 05-01-2024 Non-patient / Non-visit Jessica Ortiz CUSTOMER SERVICE REP-C Work Phone: [facility] Work Phone: Start: 05-01-2024 End: 05-01-2024 Admission to same day surgery center Jovan Ortiz CUSTOMER SERVICE REP-C Work Phone: [facility] Work Phone: Start: 05-01-2024 End: 05-01-2024 ambulatory Jovan Ortiz CUSTOMER SERVICE REP-C Work Phone: [facility] Work Phone: Start: 04-21-2024 End: 04-21-2024 Orders Only Jovan Ortiz CUSTOMER SERVICE REP Work Phone: [facility] Comment on above: Age-related osteopor osis without current pathological fracture (CMS/HCC) (Primary Dx) Start: 04-13-2024 End: 04-13-2024 Office outpatient visit 15 minutes Delmi Love CUSTOMER SERVICE REP Work Phone: [facility] Comment on above: Acute non-recurrent maxillary sinusitis (Primary Dx); Tobacco dependence; Acute URI Start: 04-13-2024 End: 04-13-2024 ambulatory DELMI LOVE Not Available Start: 03-26-2024 End: 03-26-2024 Orders Only Jovan Ortiz CUSTOMER SERVICE REP Work Phone: [facility] Comment on above: Positive colorectal cancer screening using Cologuard test (Primary Dx); Encounter for screening for malignant neoplasm of colon Start: 03-23-2024 End: 03-23-2024 Office outpatient visit 15 minutes Benjamin Tan MD Work Phone: [facility] Comment on above: Melanocytic nevus of left upper extremity (Primary Dx); Seborrheic keratosis; Lentigines; Angioma of skin Start: 03-23-2024 End: 03-23-2024 ambulatory BENJAMIN TAN Not Available Start: 03-19-2024 End: 03-19-2024 Clinisync Result Encounter Jovan Ortiz CUSTOMER SERVICE REP Work Phone: [facility] Unsolicited Start: 03-19-2024 End: 03-19-2024 Clinisync Result Encounter Jovan Ortiz CUSTOMER SERVICE REP Work Phone: [facility] Unsolicited Start: 02-27-2024 End: 02-27-2024 Bamboo flowsheet Jovan Ortiz CUSTOMER SERVICE REP Work Phone: [facility] Start: 02-27-2024 End: 02-27-2024 Bamboo flowsheet Jovan Ortiz CUSTOMER SERVICE REP Work Phone: [facility] Start: 02-27-2024 End: 02-27-2024 Patient encounter procedure Jovan Ortiz CUSTOMER SERVICE REP Work Phone: [facility] Comment on above: Screening for malign ant neoplasm of colon (Primary Dx); Prediabetes; Encounter for screening mammogram for malignant neoplasm of breast; Encounter for osteoporosis screening in asymptomatic postmenopausal patient; Need for immunization against influenza Start: 02-27-2024 End: 02-27-2024 ambulatory JOVAN SOLORZANOK Not Available Start: 02-24-2024 End: 02-24-2024 Orders Only Jovan Solorzanok CUSTOMER SERVICE REP Work Phone: [facility] Comment on above: Mixed hyperlipidemia (CMS/HCC) (Primary Dx) Start: 02-18-2024 End: 02-18-2024 Clinisync Result Encounter Jovan Ortiz CUSTOMER SERVICE REP Work Phone: [facility] Unsolicited Start: 02-18-2024 End: 02-18-2024 Clinisync Result Encounter Jovan Ortiz CUSTOMER SERVICE REP Work Phone: [facility] Unsolicited Start: 02-17-2024 End: 02-17-2024 Refill Jovan Ortiz CUSTOMER SERVICE REP Work Phone: [facility] Comment on above: Hypothyroidism, unsp ecified type (CMS/HCC) Start: 02-13-2024 End: 02-13-2024 Bamboo flowsheet Ben Roe DPM Work Phone: [facility] Start: 02-13-2024 End: 02-13-2024 Bamboo flowsheet Ben Roe DPM Work Phone: [facility] Start: 02-13-2024 End: 02-13-2024 ambulatory BEN ROE Not Available Start: 02-13-2024 End: 02-13-2024 Office outpatient new 30 minutes Ben Roe DPM Work Phone: [facility] Comment on above: Plantar fasciitis (P rimary Dx); Verruca plantaris; Neoplasm of uncertain behavior of skin; Foot pain, right Start: 02-11-2024 End: 02-11-2024 Refill Jovan Smithtrick CUSTOMER SERVICE REP Work Phone: [facility] Comment on above: Hyperlipidemia, unsp ecified hyperlipidemia type (CMS/HCC); Hypothyroidism, unspecified type (CMS/HCC) Start: 01-22-2024 End: 01-22-2024 Clinisync Result Encounter Jovan Ortiz CUSTOMER SERVICE REP Work Phone: [facility] Unsolicited Start: 01-22-2024 End: 01-22-2024 Clinisync Result Encounter Jovan Ortiz CUSTOMER SERVICE REP Work Phone: [facility] Unsolicited Start: 12-19-2023 End: 12-19-2023 Bamboo flowsheet Jovan Ortiz CUSTOMER SERVICE REP Work Phone: [facility] Start: 12-19-2023 End: 12-19-2023 Bamboo flowsheet Jovan Ortiz CUSTOMER SERVICE REP Work Phone: [facility] Start: 12-19-2023 End: 12-19-2023 Office outpatient visit 15 minutes Jovan Ortiz CUSTOMER SERVICE REP Work Phone: [facility] Comment on above: Prediabetes (Primary Dx); Hypertriglyceridemia (CMS/HCC); Hypothyroidism, unspecified type (CMS/HCC); Impacted cerumen of left ear Start: 12-19-2023 End: 12-19-2023 ambulatory JOVAN ORTIZ Not Available Start: 12-04-2023 End: 12-04-2023 ambulatory [facility] Start: 11-20-2023 End: 11-20-2023 ambulatory JOVAN ORTIZ Not Available Start: 11-18-2023 End: 11-18-2023 ambulatory JOVAN ORTIZ Not Available Start: 11-08-2023 End: 11-08-2023 ambulatory DANDY Gregory CORREA Not Available Start: 10-22-2023 End: 10-22-2023 ambulatory AME HONG Not Available Start: 09-03-2023 End: 09-03-2023 ambulatory SHAIKH FELICITADUSTIN Not Available Start: 05-24-2023 Chart abstracting Ame castillo PA Work Phone: [facility] Start: 05-24-2023 End: 05-24-2023 Postop follow up visit related to original px Ame Hong PA Work Phone: [facility] Comment on above: S/P carpal tunnel re lease (Primary Dx); Right hand pain; Arthritis of carpometacarpal (CMC) joint of right thumb Start: 07-03-2022 End: 07-04-2022 ambulatory GARCIA H MAREN Facility:[facility] Start: 03-29-2022 End: 03-30-[address] JOSE DAVID GODWIN Facility:[facility] Start: 02-06-2022 End: 02-07-[address] JOSE DAVID GODWIN Facility:[facility] Start: 11-26-2021 End: 11-26-2021 ambulatory Yuliet Perez Other [employer] Other Start: 11-26-2021 Office outpatient ne w 20 minutes Yuliet Perez [facility] [place] Start: 11-26-2021 End: 11-26-2021 Departed Referred DO Jose David Godwin Work Phone: [facility] [place] Start: 09-13-2021 End: 09-13-2021 Patient encounter procedure DO Jose David Godwin Work Phone: [facility] [address] Procedures Date Procedure Procedure Detail Performing Clinician Start: 06-05-2024 [facility] rpice CUSTOMER SERVICE REP Work Phone: Start: 05-25-2024 Computerized ophthal elliot imaging retina Dandy Correa DO Work Phone: Start: 05-25-2024 End: 05-25-2024 Oph medical xm&eval comprhnsv estab pt 1/> Epiretinal membrane (ERM) of both eyes Dandy Correa DO Work Phone: Comment on above: Epiretinal membrane (ERM) of both eyes (Primary Dx); Hollenhorst plaque, right eye; Dry eyes; Blepharitis of upper and lower eyelids of both eyes, unspecified type Start: 05-04-2024 Colonoscopy Dandy sunshine DO Work Phone: Start: 05-01-2024 Colonoscopy Jovan price CUSTOMER SERVICE REP-C Work Phone: Start: 03-19-2024 MLR HEMOGLOBIN A1C Marian Ortiz CUSTOMER SERVICE REP Work Phone: Start: 02-18-2024 ALL LIPID PROFILE (FASTING) Jovan Ortiz CUSTOMER SERVICE REP Work Phone: Start: 01-22-2024 TSH W/REFLEX T4 Serjio Ortiz CUSTOMER SERVICE REP Work Phone: Start: 04-01-2023 Mammography Ame castillo [...] 05-04-2034 Screening for malignant neoplasm of colon [facility] Start: 03-18-2027 Screening for malignant neoplasm of colon [facility] Start: 10-20-2025 End: 10-20-2025 Patient encounter procedure 10/20/2025 11:00 AM EDT Office Visit [facility] [address] [facility] [place] [phone] Ame Hong PA [address] [place] [address] [facility] Start: 03-23-2025 End: 03-23-2025 Patient encounter procedure 03/23/2025 1:35 PM EST Office Visit [facility] [address] [place] [phone] Benjamin Tan MD [address] [place] [address] [facility] Start: 02-26-2025 Medicare Annual Wellness (AWV) Medicare Annual Wellness (AWV) [facility] Start: 01-20-2025 End: 01-20-2025 Patient encounter procedure 01/20/2025 1:30 PM EDT Office Visit [facility] [address] [place] [address] Dandy Correa DO [address] [place] [address] [facility] Start: 11-26-2024 End: 11-26-2024 Patient encounter procedure 11/26/2024 10:30 AM EDT Office Visit [facility] [address] [place] [phone] Jovan Ortiz NP [address] [place] [address] [facility] Start: 07-30-2024 End: 06-07-2025 25-hydroxyvitamin D3 [Mass/volume] in Serum or Plasma Vitamin D 25 hydroxy Lab Routine Vitamin D deficiency Expected: 07/30/2024 (Approximate), Expires: 06/07/2025 [facility] Work Phone: Comment on above: Expected: 07/30/2024 (Approximate), Expi res: 06/07/2025 Start: 06-07-2024 End: 06-07-2025 CBC W Auto Differential panel - Blood CBC and differential Lab Routine Tobacco dependence Expected: 06/07/2024 (Approximate), Expires: 06/07/2025 [facility] Comment on above: Expected: 06/07/2024 (Approximate), Expi res: 06/07/2025 Start: 06-07-2024 End: 06-07-2025 Comprehensive metabolic 2000 panel - Serum or Plasma Comprehensive metabolic panel Lab Routine Prediabetes Mixed hyperlipidemia (CMS/HCC) Expected: 06/07/2024 (Approximate), Expires: 06/07/2025 [facility] Comment on above: Expected: 06/07/2024 (Approximate), Expi res: 06/07/2025 Start: 06-07-2024 End: 06-07-2025 Microalbumin/Creatinin e panel in random Urine Microalbumin / creatinine, urine ratio Lab Routine Prediabetes Expected: 06/07/2024 (Approximate), Expires: 06/07/2025 [facility] Work Phone: Comment on above: Expected: 06/07/2024 (Approximate), Expi res: 06/07/2025 Start: 06-07-2024 End: 06-07-2025 Urinalysis complete panel - Urine Urinalysis with reflex microscopic (clean catch) Lab Routine Prediabetes Expected: 06/07/2024 (Approximate), Expires: 06/07/2025 [facility] Comment on above: Expected: 06/07/2024 (Approximate), Expi res: 06/07/2025 Start: 05-28-2024 End: 05-28-2024 Patient encounter procedure [facility] Comment on above: Arrived Start: 05-25-2024 End: 05-25-2024 Patient encounter procedure [facility] Comment on above: Arrived Start: 05-01-2024 [facility] Start: 04-21-2024 End: 04-21-2025 25-hydroxyvitamin D3 [Mass/volume] in Serum or Plasma Vitamin D 25 hydroxy Lab Routine Age-related osteoporosis without current pathological fracture (CMS/HCC) Expected: 04/21/2024 (Approximate), Expires: 04/21/2025 [facility] Comment on above: Expected: 04/21/2024 (Approximate), Expi res: 04/21/2025 Start: 04-21-2024 End: 04-21-2025 Calcium [Mass/volume] in Serum or Plasma Calcium Lab Routine Age-related osteoporosis without current pathological fracture ([facility]/HCC) Expected: 04/21/2024 (Approximate), Expires: 04/21/2025 [facility] Work Phone: Comment on above: Expected: 04/21/2024 (Approximate), Expi res: 04/21/2025 Start: 04-01-2024 Screening for malignant neoplasm of breast Mammogram [facility] Start: 03-23-2024 End: 03-23-2024 Patient encounter procedure 03/23/2024 2:05 PM EST Office Visit [facility] [address] [place] [phone] Benjamin Tan MD [address] [place] [address] [facility] Start: 02-27-2024 End: 2025 DBT Breast - bilateral screening Bilateral screening mammogram with tomosynthesis Imaging Routine Encounter for screening mammogram for malignant neoplasm of breast Expected: 02/27/2024, Expires: 2025 [facility] Comment on above: Expected: 02/27/2024, Expires: Start: 02-27-2024 End: 02-26-2025 DXA Skeletal system Views for bone density DEXA bone density Imaging Routine Encounter for osteoporosis screening in asymptomatic postmenopausal patient Expected: 02/27/2024, Expires: 02/26/2025 [facility] Comment on above: Expected: 02/27/2024, Expires: Start: 02-27-2024 End: 02-26-2025 Hemoglobin A1c/Hemoglobin.total in Blood Hemoglobin A1c Lab Routine Prediabetes Expected: 02/27/2024 (Approximate), Expires: 02/26/2025 [facility] Comment on above: Expected: 02/27/2024 (Approximate), Expi res: 02/26/2025 Start: 02-27-2024 End: 02-26-2025 Noninvasive colorectal cancer DNA and occult blood screening [Presence] in Stool Cologuard colon cancer screening Lab Routine Screening for malignant neoplasm of colon Expected: 02/27/2024 (Approximate), Expires: 02/26/2025 [facility] Work Phone: Comment on above: Expected: 02/27/2024 (Approximate), Expi res: 02/26/2025 Start: 02-27-2024 End: 02-27-2024 Patient encounter procedure 02/27/2024 11:00 AM EST Office Visit [facility] [address] [place] [address] Jovan Ortiz NP [address] [place] [phone] [facility] Start: 02-20-2024 Medicare Annual Wellness (AWV) Medicare Annual Wellness (AWV) [facility] Start: 02-13-2024 End: 02-13-2024 Patient encounter procedure 02/13/2024 1:50 PM EDT Office Visit [facility] [address] [facility] [address] [place] [phone] Ben Roe, DPKathleen [address] [facility] [address] [place] [address] [facility] Start: 01-10-2024 Screening for malignant neoplasm of colon Colorectal Cancer Screening [facility] Comment on above: Postponed from 1950 (Other Patient Reasons) Start: 01-02-2024 End: 12-18-2024 TSH W/REFLEX TO FT4 TSH W/REFLEX TO FT4 Lab Routine Hypothyroidism, unspecified type (CMS/HCC) Expected: 01/02/2024 (Approximate), Expires: 12/18/2024 [facility] Work Phone: Comment on above: Expected: 01/02/2024 (Approximate), Expi res: 12/18/2024 Start: 12-19-2023 End: 12-19-2023 Patient encounter procedure 12/19/2023 11:30 AM EDT Office Visit [facility] [address] [place] [phone] Jovan Ortiz, JADE [address] [place] [phone] Prediabetes (Primary Dx); Hypertriglyceridemia (CMS/HCC); Mixed hyperlipidemia (CMS/HCC) [facility] Comment on above: Prediabetes (Primary Dx); Hypertriglyceridemia (CMS/HCC); Mixed hyperlipidemia (CMS/HCC) Start: 12-15-2023 Influenza vaccination Influenza Vaccine (#1) [facility] Start: 10-11-2023 End: 10-11-2023 Patient encounter procedure 10/11/2023 10:30 AM EDT Office Visit [facility] [address] [facility] [address] [place] [address] Ame Hong, PA [address] [facility] [address] [place] [address] [facility] Start: 05-24-2023 End: 05-24-2023 Patient encounter procedure 05/24/2023 10:30 AM EST Office Visit [facility] [address] [place] [address] Ame Hong, PA [address] [facility] [address] [place] [address] [facility] Start: 03-25-2022 Screening for malignant neoplasm of colon [facility] Start: 1950 Medicare Annual Wellness (AWV) Medicare Annual Wellness (AWV) [facility] Start: 1950 Screening for malignant neoplasm of colon [facility] Patient Education Colon polyps H emorrhoids ED Diverticulosis Know your Meds [facility] Work Phone: XR Hand - right 3 Views XR hand 3+ views right Imaging Routine Right hand pain 05/24/2023 10:32 AM EST [facility] Work Phone: Immunizations Immunization Date Immunization Notes Care Provider Ander alicia 02-27-2024 influenza, seasonal, injectable, preservative free Jovan Ortiz CUSTOMER SERVICE REP Work Phone: [facility] 02-13-2023 Influenza, Seasonal, Quadrivalent, Adjuvanted Delmi Aichholz CUSTOMER SERVICE REP Work Phone: [facility] 02-13-2023 influenza virus vacc ine, unspecified formulation Jovan Ortiz CUSTOMER SERVICE REP Work Phone: [facility] 02-07-2022 Influenza, Seasonal, Quadrivalent, Adjuvanted Delmi Aichholz CUSTOMER SERVICE REP Work Phone: [facility] 04-11-2021 Influenza, Seasonal, Quadrivalent, Adjuvanted Delmi Aichholz CUSTOMER SERVICE REP Work Phone: [facility] 01-13-2020 influenza, injectabl e, quadrivalent, preservative free Delmi Aichholz CUSTOMER SERVICE REP Work Phone: [facility] 12-25-2019 influenza, injectabl e, quadrivalent, preservative free Delmi Aichholz CUSTOMER SERVICE REP Work Phone: [facility] 01-21-2019 pneumococcal polysaccharide vaccine, 23 valent Delmi Aichholz CUSTOMER SERVICE REP Work Phone: [facility] 01-21-2019 Seasonal, quadrivale nt, recombinant, injectable influenza vaccine, preservative free Delmi Aichholz CUSTOMER SERVICE REP Work Phone: [facility] 01-28-2018 Seasonal trivalent influenza vaccine, adjuvanted, preservative free Delmi Aichholz CUSTOMER SERVICE REP Work Phone: [facility] 03-14-2017 influenza, injectabl e, quadrivalent, preservative free Delmi Aichholz CUSTOMER SERVICE REP Work Phone: [facility] 03-14-2017 pneumococcal conjuga te vaccine, 13 valent Delmi Kate CUSTOMER SERVICE REP Work Phone: [facility] 01-23-2016 seasonal influenza, intradermal, preservative free Delmi Kate CUSTOMER SERVICE REP Work Phone: [facility] Payers Date Payer Category Payer Self-pay [id number] 2021 Medicare ANTHEM MEDICARE ADVANTAGE ANTHEM MEDICARE ADVANTAGE [id number] 2021-Present [address] [place] [id number] 2021 Medicare (Managed Care) [facility] [id number] 1959 Medicare [id number] 1950 Unknown [id number] 2.16.840.1.380254.3.579. 2.593 1950 Unknown [id number] 2.16.840.1.107709.3.579. 2.593 1951 Unknown [id number] 2.16.840.1.966145.3.579. 2.593 1951 Unknown [id number] 2.16.840.1.605578.3.579. 2.1259 1951 Unknown [id number] 2.16.840.1.964664.3.579. 2.1258 1951 Unknown [id number] 2.16.840.1.791673.3.579. 2.1258 1951 Unknown [id number] 2.16.840.1.664943.3.579. 2.1258 1951 Unknown [id number] 2.16.840.1.293118.3.579. 2.1258 1951 Unknown [id number] 2.16.840.1.904728.3.579. 2.1258 1951 Unknown [id number] 2.16.840.1.046712.3.579. 2.1258 1951 Unknown [id number] 2.16.840.1.303278.3.579. 2.1258 1951 Unknown [id number] 2.16.840.1.113252.3.579. 2.1258 1951 Unknown [id number] 2.16.840.1.066067.3.579. 2.1258 1951 Unknown [id number] 2.16.840.1.055491.3.579. 2.1258 1951 Unknown [id number] 2.16.840.1.548640.3.579. 2.1258 1950 Unknown [id number] 2.16.840.1.828984.3.579. 2.1259 Unknown [place] BC/BS 1 [id number] Unknown Other1 (STD) [id number] Unknown [id number] 2.16.840.1.682624.3.579. 2.531 Social History Date Type Detail Facility Tobacco smoking stat us NHIS Unknown if ever smoked [facility] Work Phone: Start: 1950 Sex Assigned At Female F [facility] Start: 03-29-2023 End: 11-12-2023 Sex Assigned At [facility] Start: 07-28-1973 End: 11-08-2023 Tobacco smoking status NHIS Smokes tobacco daily [facility] Start: 07-28-1973 History of tobacco use Cigarette Smo ker [facility] Start: 11-07-2022 End: 11-08-2023 Tobacco use and exposure Smokeless tobacco non-user [facility] Start: 05-03-2023 End: 05-28-2024 Alcohol intake Lifetime non-drinker (finding) [facility] Start: 03-29-2023 End: 11-12-2023 History of [...] to any clubs or organizations such as worship groups, unions, fraternal or athletic groups, or school groups? No [facility] Are you now , , , , never or living with a partner? [facility] Do you feel stress - tense, restless, nervous, or anxious, or unable to sleep at night because your mind is troubled all the time - these days [OSQ] Not at all [facility] (I/We) worried wheja er (my/our) food would run out before (I/we) got money to buy more. Never true [facility] Start: 05-01-2024 [facility] Start: 05-01-2024 Sex Patient sex un known (finding) [facility] Goals Date Patient Goal Desired Activity /State Clinical Notes 11-26-2021 to 06-02-2024 Jovan Ortiz NP - 05/28/2024 10:37 AM Earnestine Ortiz NP - 05/28/2024 10:36 AM Earnestine Ortiz, CUSTOMER SERVICE REP - 05/28/2024 10:30 AM MITCHWinterhortencianeo Correa, DO - 05/25/2024 1:15 PM EST Note Date & Type Note Facility 06-02-2024 Note Cardiology Clinic No te HPI: Bertha Galarza is a 74 y.o. female who has a past medical history of Abnormal ECG, Cancer (CMS/HCC), and Hyperlipidemia. that is referred to Cardiology clinic for evaluation of RBBB on EKG. Patient adamantly denies any cardiac complaints or concerns. She is doing well. Patient denies any chest pain or worsening shortness of breath. Patient denies any lower extremity edema, orthopnea, or proximal nocturnal dyspnea. No near-syncope or syncope. No dizziness or lightheadedness. Patient denies any previous history of CVA, PVD, DM, HTN, Depressed LVEF, and CAD. Patient had echocardiogram performed which was unremarkable. She had low normal EF at 50%. Carotid Doppler without evidence of significant stenosis. Cardiology ROS: 10 point ROS is performed and is negative unless otherwise specified in HPI. Past Medical History She has a past medical history of Abnormal ECG, Cancer (CMS/HCC), and Hyperlipidemia. Surgical History She has a past surgical history that includes Knee surgery; Cholecystectomy; Carpal tunnel release; Cataract extraction; and Finger surgery. Social History She reports that she has been smoking cigarettes. She has never used smokeless tobacco. She [...] Atorvastatin and Penicillins Physical Exam VITAL SIGNS: There were no vitals taken for this visit. Constitutional: Well developed, Well nourished, No acute [...] Mood normal. Assessment/Plan: Bertha Galarza is a 74 y.o. female with RBBB Mixed hyperlipidemia Continue rosuvastatin 40 mg daily for HLD. LDL within target range. However, triglycerides were elevated. She is unsure if she was fasting. Will repeat lipid panel while fasting. Consider addition of agents if triglycerides remain elevated. In the present time, she will work on diet and exercise. Optimize medical management Aggressive risk factor modification [...] contact cardiology with any questions or concerns. Juilo Cesar Borrego MD Interventional Cardiology [facility] 05-28-2024 History of Present illness Narrative Associated Problem(s): Hypertriglyceridemia (CMS/HCC) Most recent Lipid Panel Triglycerides were still elevated at 313 but a decrease from previous of 430. Pt discussed initiating Fenofibrate with Automatic Spinning Lathe Setter- he recommended and initiated Aspirin 81mg at [...] of 430. Pt discussed initiating Fenofibrate with Automatic Spinning Lathe Setter- he recommended and initiated Aspirin 81mg at [...] in 3 months. documented in this encounter [facility] 05-25-2024 Note Right Eye Quality was good. Scan locations included subfoveal. Progression has been stable. Findings include normal observations. Left Eye Quality was good. Scan locations included subfoveal. Progression has been stable. Findings include abnormal foveal contour. Notes Good scan with normal appearance right eye (OD) [facility] 05-25-2024 History of Present illness Narrative Assessment/Plan Epiretinal membrane (ERM) of [...] scrubs were recommended. documented in this encounter [facility] 05-01-2024 Procedure note [facility] enter 05-01-2024 History and physi samara note [facility] enter 04-13-2024 History of Present illness Narrative Associated Problem(s): Tobacco dependence The patient has been advised of the risks of continued smoking: stroke, [place], all forms of cancer, lung disease, and [...] Medical History: Diagnosis Date Actinic keratosis Cancer ([facility]) [id number] Cataract Dry eyes Family history of thyroid problem High cholesterol ([facility]) Hx of breast cancer 2006 Personal history [...] of the risks of continued smoking: stroke, [place], all forms of cancer, lung disease, and [...] 100 MG tablet documented in this encounter [facility] 04-13-2024 Instructions Delmi Love NP - 04/13/2024 11:30 AM EST Fluids, rest, atb, steroids, and inhaler If not better contact office documented in this encounter [facility] 03-23-2024 History of Present illness Narrative [...] Hands Examined Digits,nails: Examined Patient wearing nail bhutanese, Denies dark streaks under finger nails Lymphatics: [...] year skin exam documented in this encounter [facility] 02-27-2024 History of Present illness Narrative [...] mg by mouth Daily fish oil concentrate (Palmetto-3) 1000 MG capsule Take 2 capsules (2 [...] at all Patient Health Questionnaire-9 Score: 0 Pipre Fall Risk History of Falling, Immediate or [...] Do you have a medical power of attorney at law?: No Objective : BP 128/64 Pulse 78 [...] February 27, 2024 documented in this encounter [facility] 02-13-2024 History of Present illness Narrative Patient: Bertha Mejía Donita : 1950 PCP: Moustapha De Leon MD [...] Medical History: Diagnosis Date Actinic keratosis Cancer ([facility]) [id number] Cataract Dry eyes Family history of thyroid problem High cholesterol ([facility]) Hx of breast cancer 2006 Personal history [...] min Stress: No Stress Concern Present (11/12/2023) [employer] [place] - Occupational Stress Questionnaire Feeling of Stress : Not at all Social Connections: Unknown (11/12/2023) Social Connection and Isolation Panel [NHANES] Frequency of Communication with Friends and Family: Once a week Frequency of Social Gatherings with Friends and Family: Once a week Attends [employer]-Is[employer] Services: Patient declined Active Member of Clubs [...] pathological diagnosis of specimen. Patient may take sesp-wjk-wftvvvt NSAID p.r.n. for pain Application of salinocaine acid medication to lesion/lesions located at right foot Informed pt of risks and benefits of procedure including high reoccurence rate, infection, pain and consent given. Application of DSD post procedure. Patient to continue with oral anti - inflammatories as needed for pain and recommended OTC medications such as tylenol or Ibuprofen Discussed accommodative custom inserts and alg-vu-bxncve cost has not covered by insurance patient may consider in the future but did recommend lgxn-suy-cgctqok inserts at this time Ben Roe DPM documented in this encounter [facility] 12-19-2023 History of Present illness Narrative Associated Problem(s): Prediabetes Dietary tips and recommendations given. Continue to implement lifestyle and dietary modifications. Recheck A1C in February. Associated Problem(s): Hypertriglyceridemia (CMS/HCC) Most recent Lipid Panel Triglycerides were still elevated at 430 Pt discussed initiating Fenofibrate with Automatic Spinning Lathe Setter- he recommended and initiated Aspirin 81mg at [...] note were not included. Subjective Patient ID: Bretha Galarza is a 73 y.o. female who presents for Follow-up. HPI Was seen in Office on 11/17- Several labs ordered. Saw Dr. Correa on 11/08/2023- was noted to have significant plaque in Right eye. Requests extensive review of vascular risks and echocardiogram. EKG: Echo: showed low systolic function EF 50%. Following Cardiology- Dr. Borrego Initiated on baby aspirin. Lipid Panel elevated: [...] - 3.740 uIU/mL 0.209 Low Resulting Agency [facility] Review of Systems Constitutional: Negative for activity [...] at 430 Pt discussed initiating Fenofibrate with Automatic Spinning Lathe Setter- he recommended and initiated Aspirin 81mg at [...] with next mammogram. documented in this encounter [facility] 12-19-2023 Instructions Jovan Ortiz NP - [...] vigorous aerobic activity. documented in this encounter [facility] 12-04-2023 Note Cardiology Clinic No te Chief Complaint: Pt is here to establish care. Pt has RBBB. She had echo, carotid us and lipids done two weeks ago. Saw eye recently and was told she has plaque [...] with any questions or concerns. Julio Cesar Borrego MD Interventional Cardiology [facility] 05-24-2023 History of Present illness Narrative Images [...] is normal. 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 JANINA Jackson documented in this encounter [facility] 11-26-2021 Evaluation note Encounter Date Diagnosis [...] understanding and is agreeable to treatment plan [facility] Other Evaluation noteNo assessment information available [facility] Work Phone: Evaluation note* Diagnosis S/P carpal tunnel release- Primary Other postprocedural status Right hand pain Pain in soft tissues of limb Arthritis of carpometacarpal (CMC) joint of right thumb [facility] Diagnosis Hypertriglyceridemia (CMS/HCC)- Primary Pure hyperglyceridemia [...] Pure hyperglyceridemia [facility] [...] Other abnormal glucose Hypertriglyceridemia (CMS/HCC) Pure hyperglyceridemia Prediabetes- Primary Other abnormal glucose Mixed hyperlipidemia (CMS/HCC) Mixed hyperlipidemia Tobacco dependence Tobacco use disorder [facility] [...] Other abnormal glucose Hypertriglyceridemia (CMS/HCC) Pure hyperglyceridemia Vitamin D deficiency- Primary [facility] Author Taiwo Rosa [facility] Note Date/Time May 01, 2024 1 0:22am [facility] ENTER [address] [place] [address] Gastroenterology H&P Signed Patient: Bertha Galarza MR#: [id number] : 1950 Acct:[id number] Age/Sex: 74 / F Adm Date: 5 Loc: Room: Type: [facility] Attending Dr: Taiwo Rosa MD Copies to: LUX Sanford MD~ Date of Service: 05/01/2024 HISTORY & [...] signed by Taiwo Rosa MD> 05/01/24 1022 [facility] Work Phone: History general Narrative - Reported* Type Description Date Medical History Hypothyroid Medical History Hypercholesterolemia Medical History Breast cancer Surgical History colonoscopy Surgical History cholecystectomy Surgical History knee arthroscopy Surgical History tonsillectomy and adenoidectomy Surgical History wisdom teeth Surgical History laparoscopy Surgical History tubal ligation Surgical History biopsy Surgical History left knee replacement 10/04 Hospitalization History see above [facility] Other Chief Complaint and Reason for Visit Chief Complaint lung mass Chief Complaint R30.0 Chief Complaint Admit Date positive cologuard May 01, 2024 9 :29am positive cologuard May 01, 2024 1 0:21am Advance Directives Advance Directive Response Recorded Date/ Time Advance Directives No September 08 2:46pm Advance Directive Response Recorded Date/ Time Advance Directives No September 08 2 1:46pm Summary Purpose Family History Relationship Condition Age at Onset Recorded Date/T [...] Active Yuliet Perez APRN Attending Provider Active Hris Administrator Relationship Specialty Start Date End Date Jose David Godwin MD [address] [place] [address] PCP - General Family Medicine 10/11/22 Hris Administrator Relationship Specialty Start Date End Date Jose David Godwin MD [address] [place] [address] PCP - General Family Medicine 10/11/22 Hris Administrator Relationship Specialty Start Date End Date Moustapha De Leon MD [address] [place] [address] PCP - General Family Medicine 11/08/23 Stephanie Peters OD [address] [place] [address] Referring Physician Optometry 11/08/23 Jovan Ortiz NP [address] [place] [address] Nurse Practitioner Family Medicine 11/13/23 Hris Administrator Relationship Specialty Start Date End Date Moustapha De Leon MD [address] [place] [address] PCP - General Family Medicine 11/08/23 Stephanie Peters, OD [address] [place] [address] Referring Physician Optometry 11/08/23 Jovan Ortiz NP [address] [place] [address] Nurse Practitioner Family Medicine 11/13/23 Hris Administrator Relationship Specialty Start Date End Date Moustapha De Leon MD [address] [place] [address] PCP - General Family Medicine 11/08/23 Stephanie Peters, OD [address] [place] [address] Referring Physician Optometry 11/08/23 Jovan Ortiz NP [address] [place] [address] Nurse Practitioner Family Medicine 11/13/23 Hris Administrator Relationship Specialty Start Date End Date Moustapha De Leon MD [address] [place] [address] PCP - General Family Medicine 11/08/23 Stephanie Peters, OD [address] [place] [address] Referring Physician Optometry 11/08/23 Jovan Ortiz NP [address] [place] [address] Nurse Practitioner Family Medicine 11/13/23 Hris Administrator Relationship Specialty Start Date End Date Moustapha De Leon MD [address] [place] [address] PCP - General Family Medicine 11/08/23 Stephanie Peters, OD [address] [place] [address] Referring Physician Optometry 11/08/23 Jovan Ortiz NP [address] [place] [address] Nurse Practitioner Family Medicine 11/13/23 Hris Administrator Relationship Specialty Start Date End Date Moustapha De Leon MD [address] [place] [address] PCP - General Family Medicine 11/08/23 Stephanie Peters, OD [address] [place] [address] Referring Physician Optometry 11/08/23 Jovan Ortiz NP [address] [place] [address] Nurse Practitioner Family Medicine 11/13/23 Hris Administrator Relationship Specialty Start Date End Date Moustapha De Leon MD [address] [place] [address] PCP - General Family Medicine 11/08/23 Stephanie Peters, OD [address] [place] [address] Referring Physician Optometry 11/08/23 Jovan Ortiz NP [address] [place] [address] Nurse Practitioner Family Medicine 11/13/23 Hris Administrator Relationship Specialty Start Date End Date Moustapha De Leon MD [address] [place] [address] PCP - General Family Medicine 11/08/23 Stephanie Peters, OD [address] [place] [address] Referring Physician Optometry 11/08/23 Jovan Ortiz NP [address] [place] [address] Nurse Practitioner Family Medicine 11/13/23 Hris Administrator Relationship Specialty Start Date End Date Moustapha De Leon MD [address] [place] [address] PCP - General Family Medicine 11/08/23 Stephanie Peters, OD [address] [place] [address] Referring Physician Optometry 11/08/23 Jovan Ortiz NP [address] [place] [address] Nurse Practitioner Family Medicine 11/13/23 Hris Administrator Relationship Specialty Start Date End Date Moustapha De Leon MD [address] [place] [address] PCP - General Family Medicine 11/08/23 Stephanie Peters, OD [address] [place] [address] Referring Physician Optometry 11/08/23 Jovan Ortiz NP [address] [place] [address] Nurse Practitioner Family Medicine 11/13/23 Hris Administrator Relationship Specialty Start Date End Date Moustapha De Leon MD [address] [place] [address] PCP - General Family Medicine 11/08/23 Stephanie Peters, OD [address] [place] [address] Referring Physician Optometry 11/08/23 Jovan Ortiz NP [address] [place] [address] Nurse Practitioner Family Medicine 11/13/23 Hris Administrator Relationship Specialty Start Date End Date Moustapha De Leon MD [address] [place] [address] PCP - General Family Medicine 11/08/23 Stephanie Peters, OD [address] [place] [address] Referring Physician Optometry 11/08/23 Jovan Ortiz NP [address] [place] [address] Nurse Practitioner Family Medicine 11/13/23 Hris Administrator Relationship Specialty Start Date End Date Moustapha De Leon MD [address] [place] [address] PCP - General Family Medicine 11/08/23 Stephanie Peters OD [address] [place] [address] Referring Physician Optometry 11/08/23 Jovan Ortiz NP [address] [place] [address] Nurse Practitioner Family Medicine 11/13/23 Hris Administrator Relationship Specialty Start Date End Date Moustapha De Leon MD [address] [place] [address] PCP - General Family Medicine 11/08/23 Stephanie Peters OD [address] [place] [address] Referring Physician Optometry 11/08/23 Jovan Ortiz NP [address] [place] [place] [address] Nurse Practitioner Family Medicine 11/13/23 Team Status: Active Member Role Status Dates LUX Sanford Primary Care Provider Ac tive Team Status: Inactive Member Role Status Dates Taiwo Rosa MD Attending Provider Active S tart: May 01, 2024 End: May 01, 2024 LUX Sanford Primary Care Provider Ac tive Start: May 01, 2024 End: May 01, 2024 Team Status: Active Member Role Status Dates Taiwo Rosa MD Attending Provider, Other Provider Active Start: May 01, 2024 LUX Sanford Primary Care Provider Active Start: April Hris Administrator Relationship Specialty Start Date End Date Moustapha De Leon MD [address] [place] [address] PCP - General Family Medicine 11/08/23 Stephanie Peters OD [address] [place] [address] Referring Physician Optometry 11/08/23 Jovan Ortiz NP [address] [place] [address] Nurse Practitioner Family Medicine 11/13/23 Hris Administrator Relationship Specialty Start Date End Date Moustapha De Leon MD [address] [place] [address] PCP - General Family Medicine 11/08/23 Stephanie Peters, OD [address] [place] [address] Referring Physician Optometry 11/08/23 Jovan Ortiz NP [address] [place] [address] Nurse Practitioner Family Medicine 11/13/23 Hris Administrator Relationship Specialty Start Date End Date Moustapha De Leon MD [address] [place] [address] PCP - General Family Medicine 11/08/23 Stephanie Peters, OD [address] [place] [address] Referring Physician Optometry 11/08/23 Jovan Ortiz NP [address] [place] [address] Nurse Practitioner Family Medicine 11/13/23 Hris Administrator Relationship Specialty Start Date End Date Moustapha De Leon MD [address] [place] [address] PCP - General Family Medicine 11/08/23 Stephanie Peters, OD [address] [place] [address] Referring Physician Optometry 11/08/23 Jovan Ortiz NP [address] [place] [address] Nurse Practitioner Family Medicine 11/13/23 Hris Administrator Relationship Specialty Start Date End Date Moustapha De Leon MD [address] [place] [address] PCP - General Family Medicine 11/08/23 Stephanie Peters OD [address] [place] [address] Referring Physician Optometry 11/08/23 Jovan Ortiz NP [address] [place] [address] Nurse Practitioner Family Medicine 11/13/23 Hris Administrator Relationship Specialty Start Date End Date Moustapha De Leon MD [address] [place] [address] PCP - General Family Medicine 11/08/23 Stephanie Peters OD [address] [place] [address] Referring Physician Optometry 11/08/23 Jovan Ortiz NP [address] [place] [address] Nurse Practitioner Family Medicine 11/13/23 Hris Administrator Relationship Specialty Start Date End Date Moustapha De Leon MD [address] [place] [address] PCP - General Family Medicine 11/08/23 Stephanie Peters OD [address] [place] [address] Referring Physician Optometry 11/08/23 Jovan Ortiz NP [address] [place], [place] [address] [place] [address] Nurse Practitioner Family Medicine 11/13/23 Goals (unrecognized [...] and content) DATE CREATED AUTHOR 07/08/2022 [facility] DATE CREATED AUTHOR AUTHOR'S ORGANIZ ATION 05/13/2024 [facility] DATE CREATED AUTHOR AUTHOR'S ORGANIZ ATION 05/30/2024 [facility] EPIC DATE CREATED AUTHOR AUTHOR'S ORGANIZ ATION 06/06/2024 [facility] FOR RECORDS PERTAINING TO PATIENTS WHO ARE [...] BE BASED ON THE PRIMARY CLINICAL RECORDS. [employer] provides no warranty or guarantee of the accuracy or completeness of information in this document.
[2024-06-19 10:31] LABS: Bilirubin Urine NEGATIVE (NEGATIVE); Blood Urine TRACE-I (NEGATIVE); Clarity Urine CLEAR (CLEAR); Color Urine LT. YELLOW (YELLOW); Glucose Urine UA NEGATIVE (NEGATIVE); Ketones Urine NEGATIVE (NEGATIVE); Leukocyte Esterase Urine NEGATIVE (NEGATIVE); Nitrite Urine NEGATIVE (NEGATIVE); Protein Urine NEGATIVE (NEG/TRACE); Specific Gravity Urine <=1.005 (1.005-1.025); Urobilinogen Urine 0.2 EU/dL (0.2-1.0)
[2024-06-19 10:32] LABS: Basophils Percent Auto 0.5 % (0.2-2.0); Eosinophils Absolute Auto 0.2 10^3/uL (0.0-0.7); Eosinophils Percent Auto 3.6 % (0.9-7.0); Hematocrit 43.5 % (36.0-48.0); Hemoglobin 14.3 g/dL (12.0-16.0); Immature Granulocytes Abs Auto 0.01 10^3/uL (0.00-0.03); Immature Granulocytes Pct Auto 0.2 % (0.0-0.5); Lymphocytes Absolute Auto 2.1 10^3/uL (1.2-3.8); Mean Corpuscular HGB Conc 32.9 g/dL (29.9-35.2); Mean Corpuscular Hemoglobin 31.6 pg (26.7-34.0); Monocytes Absolute Auto 0.7 10^3/uL (0.3-0.8); Monocytes Percent Auto 11.3 % (1.7-12.0); Neutrophils Percent Auto 49.4 % (43.0-75.0); Platelet Count 244 10^3/uL (150-450); Red Blood Count 4.53 10^6/uL (4.20-5.40); Red Cell Distribution Width 12.4 % (11.0-15.0); White Blood Count 6.1 10^3/uL (4.0-11.0)
[2024-06-19 10:33] LABS: Urine Microscopic Indicated YES
[2024-06-19 10:40] LABS: Bacteria Urine NONE SEEN #/HPF (NONE SEEN); Mucus Urine NONE SEEN (NONE SEEN); RBC Urine 0-2 #/HPF (0-2); Squamous Epithelial Cell Urine FEW #/LPF (NONE/RARE); WBC Urine NONE SEEN #/HPF (NONE SEEN)
[2024-06-19 11:07] LABS: Creatinine Urine Random 18.08 mg/dL (20.00-300.00); Microalbum Creatinine Ratio Ur 77.4 mg/g (0.0-29.9); Microalbumin Urine Random 1.4 mg/dL (<=30.0)
[2024-06-19 11:11] LABS: Alanine Aminotransferase 29 U/L (14-59); Albumin Globulin Ratio 0.9; Albumin Level 3.6 g/dL (3.4-5.0); Alkaline Phosphatase 99 U/L (46-116); Anion Gap 12.1; Aspartate Amino Transferase 21 U/L (15-37); BUN Creatinine Ratio 12.5; Bilirubin Total 0.3 mg/dL (0.2-1.0); Calcium 9.2 mg/dL (8.5-10.1); Carbon Dioxide 28.9 mmol/L (21.0-32.0); Chloride 104 mmol/L (98-107); Estimated GFR (African America >60 (>=60 mL/min/1.73m^2); Estimated GFR (Non-African Ame >60 (>=60 mL/min/1.73m^2); Globulin 3.9 g/dL; Glucose 102 mg/dL (74-106); Sodium 141 mmol/L (136-145); Total Protein 7.5 g/dL (6.4-8.2)
== END 2024-06-19 10:01 | disposition home or self-care (01) ==
LOC: LAB 10:02
PROVIDERS: PCP Nurse Practitioner; Visit Provider Nurse Practitioner
DX: R73.03 Prediabetes (principal); F17.200 Nicotine dependence, unspecified, uncomplicated; E78.2 Mixed hyperlipidemia
CPT/HCPCS: 36415; 80053; 81001; 82043; 82570; 85025

== ENCOUNTER 2024-07-01 13:27 | Outpatient (OUT) | payer MEDICARE, SELFPAY | END 2024-07-01 13:28 | disposition home or self-care (01) | LOC: LAB 13:30 | PROVIDERS: PCP Nurse Practitioner; Visit Provider Nurse Practitioner | DX: E55.9 Vitamin D deficiency, unspecified (principal) | CPT/HCPCS: 36415; 82306 ==

== ENCOUNTER 2024-08-26 12:46 | Outpatient (OUT) | payer MEDICARE, SELFPAY ==
--- NOTE | 2024-08-26 13:15 | ECG_ITS ---
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 Measurements Intervals [place] Rate: 82 P: 79 OR: 153 QRS: -70 QRSD: 120 T: 59 QT: 377 QTc: 441 Interpretive Statements SINUS RHYTHM MARKED LEFT AXIS DEVIATION [QRS AXIS < -30] RIGHT BUNDLE BRANCH BLOCK [120+ ms QRS DURATION, UPRIGHT V1, 40+ ms S IN I/aVL/V4/V5/V6] WARNING: DATA QUALITY MAY AFFECT INTERPRETATION Compared to ECG 11/19/2023 10:39:10 Myocardial infarct finding no longer present Electronically Signed On 08-27-2024 19:43:19 EDT by TRIXIE AVENDAÑO M.D.
[2024-08-26 13:21] LABS: Basophils Percent Auto 0.2 % (0.2-2.0); Eosinophils Absolute Auto 0.1 10^3/uL (0.0-0.7); Eosinophils Percent Auto 1.4 % (0.9-7.0); Hematocrit 42.4 % (36.0-48.0); Hemoglobin 14.3 g/dL (12.0-16.0); Immature Granulocytes Abs Auto 0.02 10^3/uL (0.00-0.03); Immature Granulocytes Pct Auto 0.2 % (0.0-0.5); Lymphocytes Absolute Auto 1.7 10^3/uL (1.2-3.8); Lymphocytes Percent Auto 20.7 % (20.5-60.0); Mean Corpuscular HGB Conc 33.7 g/dL (29.9-35.2); Mean Corpuscular Hemoglobin 32.1 pg (26.7-34.0); Mean Corpuscular Volume 95.3 fL (81.0-99.0); Mean Platelet Volume 9.2 fL (9.5-13.5); Monocytes Absolute Auto 0.8 10^3/uL (0.3-0.8); Monocytes Percent Auto 10.2 % (1.7-12.0); Neutrophils Absolute Auto 5.4 10^3/uL (1.4-6.5); Neutrophils Percent Auto 67.3 % (43.0-75.0); Platelet Count 230 10^3/uL (150-450); Red Blood Count 4.45 10^6/uL (4.20-5.40); Red Cell Distribution Width 12.3 % (11.0-15.0); White Blood Count 8.1 10^3/uL (4.0-11.0)
[2024-08-26 14:20] LABS: Free T4 1.17 ng/dL (0.76-1.46)
[2024-08-26 14:23] LABS: Free T3 2.44 pg/mL (2.18-3.98); Thyroid Stimulating Hormone 0.301 uIU/mL (0.358-3.740)
[2024-08-27 09:08] LABS: Vitamin B12 618 pg/mL (232-1245)
== END 2024-08-26 12:47 | disposition home or self-care (01) ==
LOC: CARD 12:48
PROVIDERS: PCP Nurse Practitioner; Visit Provider Nurse Practitioner
DX: R53.83 Other fatigue (principal); F17.200 Nicotine dependence, unspecified, uncomplicated; E78.5 Hyperlipidemia, unspecified; Z82.49 Family history of ischemic heart disease and other diseases of the circulatory system; E03.9 Hypothyroidism, unspecified; R20.0 Anesthesia of skin; R20.2 Paresthesia of skin
CPT/HCPCS: 36415; 82607; 83540; 84439; 84443; 84481; 85025; 93005

== ENCOUNTER 2024-10-20 10:22 | Outpatient (OUT) | payer MEDICARE, SELFPAY ==
--- OUTSIDE RECORDS SUMMARY | 2024-10-13 12:00 | XMS_ITS | Encounter Summary ---
Author Organization [facility] Address [address] [place] [address] Care Team Providers Care Magnetic Prospecting Supervisor Name Role Phone Stephanei Peters OD Unavailable Moustapha De Leon MD Primary Care Provider [phone] Delmi Love DIE CAST PATTERNMAKER Unavailable [phone] Reason for Visit * Other Medical (Routine) - Closed Specialty Diagnoses / Procedures Referred By Contjosette t Referred To Contact Neurology Diagnoses Numbness and tingling of both feet Lumbar back pain Procedures EMG AND NERVE CONDUCTION STUDY Delmi Love, JADE [address] [place] [address] Phone: tel: fax: Tito Guevara MD [address] [place] [address] Phone: tel: fax: Referral ID Status Reason Start Date Expiration Date Visits Re quested Visits Authorized [id number] Closed 09/24/2024 03/23/2025 1 1 Encounter Details Date Type Department Care Team (Latest Contact Info) Description 10/13/2024 12:00 PM EDT Procedure Visit [facility] [address] [facility] [address] [place] [address] Tito Guevara MD [address] [place] [id number] Numbness (Primary Dx); Paresthesias; Peripheral polyneuropathy Social History Tobacco Use Types Packs/Day Years Used Date Smoking Tobacco: Every Day Cigarettes 1 51.2 Started: 07/28/1973 Passive Smoke Exposure: Current Smokeless Tobacco: Never Alcohol Use Standard Drinks/Week Comments Never 0 (1 standard drink = 0.6 oz pur e alcohol) B1300 Health Literacy Answer Date Recor ded How often do you need to hav e someone help you when you read instructions, pamphlets, or other written material from your doctor or pharmacy? Rarely 11/12/2023 Social Connection and Isolation Panel [NHANES] A nswer Date Recorded In a typical week, how many times do you talk on the phone with family, friends, or neighbors? Once a week 11/12/2023 How often do you get togethe r with friends or relatives? Once a week 11/12/2023 How often do you attend latter day or catholic serv ices? Patient declined 11/12/2023 Do you belong to any clubs o r organizations such as latter day groups, unions, fraternal or athletic groups, or school groups? No 11/12/2023 How often do you attend meet ings of the clubs or organizations you belong to? Never 11/12/2023 Are you , , di vorced, , never , or living with a partner? 11/12/2023 AUDIT-C Answer Date Recorded Q1: How often do you have a drink containing alc ohol? Patient declined 11/12/2023 Q2: How many drinks containi ng alcohol do you have on a typical day when you are drinking? Patient declined 11/12/2023 Q3: How often do you have si x or more drinks on one occasion? Patient declined 11/12/2023 Overall Financial Resource Strain (CARDIA) Answe r Date Recorded How hard is it for you to pa y for the very basics like food, housing, medical care, and heating? Not hard at all 11/12/2023 PHQ-2 Answer Date Recorded Patient Health Questionnaire-2 Score 0 02/27/2024 [facility] of Occupat ional Health - Occupational Stress Questionnaire Answer Date Recorded Do you feel stress - tense, restless, nervous, or anxious, or unable to sleep at night because your mind is troubled all the time - these days? Not at all 11/12/2023 Exercise Vital Sign Answer Date Recorde d On average, how many days pe r week do you engage in moderate to strenuous exercise (like a brisk walk)? 0 days 11/12/2023 On average, how many minutes do you engage in exercise at this level? 0 min 11/12/2023 Hunger Vital Sign Answer Date Recorded Within the past 12 months, y ou worried that your food would run out before you got the money to buy more. Never true 11/12/19 24 Within the past 12 months, t he food you bought just didn't last and you didn't have money to get more. Never true 11/12/2023 PRAPARE - Transportation Answer Date Re corded In the past 12 months, has l ack of transportation kept you from medical appointments or from getting medications? No 10/15 In the past 12 months, has l ack of transportation kept you from meetings, work, or from getting things needed for daily living? No 11/12/2023 Housing Stability Vital Sign Answer Fabio e Recorded In the last 12 months, was t here a time when you were not able to pay the mortgage or rent on time? No 11/12/2023 Number of Times Moved in the Last Year Not on fi le 11/12/2023 At any time in the past 12 m [facility], were you homeless or living in a residential (including now)? No 11/12/2023 Comments No Sex and Gender Information Value Date Recorded Sex Assigned at Not on file Legal Sex Female 7:30 PM EDT Gender Identity Not on file Sexual Orientation Not on file documented as of this encounter Progress Notes * Tito Guevara MD - 10/13/2024 12:00 PM EDT [facility] Patient: Bertha Duckworth [address], [address] , Sex: 1950, Female [place], [place] [address] Height: 165 cm Ref Phys: Aichholz fax Electroneuromyogram (ENMG) Test Date: 2024-10-13 Patient Complaints: Lumbar pain. Numbness, paraesthesiae BLE Nerve Conduction Studies Anti Sensory Summary Table Site NR Peak (ms) Norm Peak (ms) P-T* Amp (??V) Norm P-T Amp Site1 Site2 Delta-0 (ms) Dist (cm) Hesham(m/s) Norm Hesham (m/s) Left Saphenous (Wainapel's) Anti Sensory (med mall) med leg NR <4.41 >5.0 med leg med mall 14.0 >38.2 Right Saphenous ([place]'s) Anti Sensory (med mall) med leg NR <4.41 >5.0 med leg med mall 14.0 >38.2 Left Superf Peron (Crystal's) Anti Sensory (Ant Lat Mall) Calf NR <4.61 >3.99 Calf Ant Lat Mall 14.0 >40.49 Right Superf Peron (Crystal's) Anti Sensory (Ant Lat Mall) Calf NR <4.61 >3.99 Calf Ant Lat Mall 14.0 >40.49 Left Sural Anti Sensory (Lat Mall) Calf NR <3.91 >5.99 Calf Lat Mall 14.0 >36.9 Right Sural Anti Sensory (Lat Mall) Calf NR <3.91 >5.99 Calf Lat Mall 14.0 >36.9 Motor Summary Table Site NR Onset (ms) Norm Onset (ms) O-P* Amp (mV) Norm O-P Amp Neg Dur (ms) Site1 Site2 Delta-0 (ms)Dist (cm) Hesham (m/s) Norm Hesham (m/s) Left Peroneal Motor (Ext Dig Brev) dispersed Ankle 5.2 <6.31 4.5 >1.99 6.09 Ankle Ext Dig Brev 5.2 10.0 19 B Fib 10.8 3.3 >1.99 6.25 B Fib Ankle 5.6 22.0 39 >38.9 Right Peroneal Motor (Ext Dig Brev) dispersed Ankle 4.7 <6.31 2.8 >1.99 5.94 Ankle Ext Dig Brev 4.7 10.0 21 B Fib 10.0 2.6 >1.99 6.25 B Fib Ankle 5.3 24.5 46 >38.9 Left Tibial/Medial Plantar Motor (Abd Jane Brev) Ankle 5.3 <7.51 7.3 >3.99 6.09 Ankle Abd Jane Brev 5.3 10.0 19 Knee 13.0 12.5 >3.99 6.09 Knee Ankle 7.7 32.0 42 >37.9 Right Tibial/Medial Plantar Motor (Abd Jane Brev) Ankle 5.3 <7.51 9.7 >3.99 5.78 Ankle Abd Jane Brev 5.3 10.0 19 Knee 12.5 10.1 >3.99 6.88 Knee Ankle 7.2 35.0 49 >37.9 F Wave Studies NR F-Lat (ms) Lat Norm (ms) L-R F-Lat (ms) Left Peroneal F-Wave (EDB) 47.78 <55.41 0.00 Right Peroneal F-Wave (EDB) 47.78 <55.41 0.00 H Reflex Studies NR H-Lat (ms) Lat Norm (ms) L-R H-Lat (ms) Left Tibial H-Reflex (Gastroc) 34.86 31.91 0.00 Right Tibial H-Reflex (Gastroc) 34.86 31.91 0.00 EMG Side Muscle Nerve Root Ins Act Fib/ Pos Fasc Other Atrophy Amp Dur Poly Recr Pat Int Pat Comment Right Ext Dig Brev Dp Br Peron L5, S1 0 0 0 0 2+ N 1+ 0 1- N Right Tibialis Ant Dp Br Peron L4-5 0 0 0 0 0 N N 0 N N Right Peroneus Long Sup Br Peron L5-S1 0 0 0 0 0 N N 0 N FFE Right Abd Hallucis MedPlantar S1-2 0 0 0 0 1+ N N 0 1- 1- Right Gastroc Med Tibial S1-2 0 0 0 0 0 N N 0 N N Right Vastus Lat Femoral L2-4 0 0 0 0 0 N N 0 N N Right L5-S1 Parasp L5-S1 0 0 0 0 0 Right L3-L4 Parasp L3-L4 0 0 0 0 0 Right L1-L2 Parasp L1-L2 0 0 0 0 0 Left Ext Dig Brev Dp Br Peron L5, S1 0 0 0 0 2+ N 1+ 0 1- 1- Left Tibialis Ant Dp Br Peron L4-5 0 0 0 0 0 N N 0 N FFE Left Peroneus Long Sup Br Peron L5-S1 0 0 0 0 0 N N 0 N N Left Abd Hallucis MedPlantar S1-2 0 0 0 0 1+ N 1+ 0 1- N Left Gastroc Med Tibial S1-2 0 0 0 0 0 N N Serr N FFE Left Vastus Lat Femoral L2-4 0 0 0 0 0 N N 0 N FFE Left L5-S1 Parasp L5-S1 0 0 0 0 0 Left L3-L4 Parasp L3-L4 0 0 0 0 0 Left L1-L2 Parasp L1-L2 0 0 0 0 0 Abbreviations: Atrop=atrophy; CRD=complex repetitive discharge; Discr=discrete; Doub=doublet; Fasc=fasciculation; FFE=full for effort; Fib=fibrillation; Myokym=myokymia; [place]=myotonic potential; N,0=normal; NR=no response; Polyph=polyphasia; Pos=positive [sharp] wave; RFU=rapidly firing units; Serr =serrated potential (2<phases<5); W&W=waxing and waning pattern INTERPRETATION: This study reveals ENMG evidence of a chronic, neuropathic, axonal, sensory > motor process affecting all lower extremity nerves tested. Needle examination demonstrates a ooojvy-re-jnmqzeaz gradient that is most suggestive of peripheral neuropathy. This is of moderate by electrical criteria. Potential aetiologies include diabetes mellitus, hypothyroidism, deficiencies of B12, B6, or folate, N0lopwem, the collagen-vascular diseases, dysglobulinaemias, medications (including chemotherapeutics, diuretics, and others), as a paraneoplastic syndrome, and a considerable number of rarer conditions. There is no suggestion by this study of myopathy, mononeuropathy, nor of more proximal processes e.g. plexopathy or radiculopathy. Tito Guevara M.D. Diplomate, [place] Board of Psychiatry and Neurology (neurology, epilepsy, sleep medicine) Diplomate, [place] Board of Clinical Neurophysiology Diplomate, [place] Board of Preventive Medicine (clinical informatics) . documented in this encounter Plan of Treatment Upcoming Encounters Date Type Department Care Team (Late st Contact Info) Description 11/09/2024 3:00 PM EDT Office Visit [facility] [address] [place] [address] Delmi Love NP [address] [place] [address] 01/20/2025 1:30 PM EDT Office Visit [facility] [address] [place] [phone] Panda Campos DO [address] [place] [address] 03/23/2025 1:35 PM EST Office Visit [facility] [address] [place] [address] Shira Tan MD [address] [place] [address] 10/20/2025 11:00 AM EDT Office Visit [facility] [address] [place] [phone] Cliff Hong PA [address] [facility] [address] [place] [address] documented as of this encounter Visit Diagnoses Diagnosis Numbness- Primary Disturbance of skin sensation Paresthesias Disturbance of skin sensation Peripheral polyneuropathy documented in this encounter Additional Health Concerns Assessment Noted Time PHQ-9 Depression Total Score: 0 02/27/20 24 11:00 AM EST documented as of this encounter Care Teams Magnetic Prospecting Supervisor Relationship Specialty Start Date End Date Moustapha De Leon MD [address] [place] [phone] PCP - General Family Medicine 11/08/23 Stephanie Peters OD [address] [facility] [place] [address] Referring Physician Optometry 11/08/23 Delmi Love NP [address] [place] [address] Nurse Practitioner Family Medicine 07/15/24 documented as of this encounter
--- OUTSIDE RECORDS SUMMARY | 2024-10-14 10:30 | XMS_ITS | Encounter Summary ---
Author Organization [facility] Address [address] [place] [address] Care Team Providers Care Railroad Purchasing Agent Name Role Phone Stephanie Peters OD Unavailable Moustapha De Leon MD Primary Care Provider [phone] Delmi Love FENCE REPAIRMAN Unavailable [phone] Reason for Visit * Reason Comments FUV Metanx Bertha Duckworth 74yo New Patient presents for 3 month FUV of Metanx therapy. Patient relates she did not start Metanx due to cost. Patient would like a refill for the Alpha Lipoic acid. Patient had an appt. Yesterday with Neurology at [facility] in [place] (dr. Guevara)SS: 10 Encounter Details Date Type Department Care Team (Late st Contact Info) Description 10/14/2024 10:30 AM EDT Office Visit [facility] [address] [place] [phone] Darien Blanca, DPM [address] [place], [place] [phone] Neuropathy, idiopathic (Primary Dx); Peripheral vascular disease; Smoker; Corns and callosities; Left foot pain; Neuritis Social History Tobacco Use Types Packs/Day Years Used Date Smoking Tobacco: Every Day Cigarettes 1 51.2 Started: 07/28/1973 Passive Smoke Exposure: Current Smokeless Tobacco: Never Tobacco Cessation:Ready to Q uit: Not Asked; Counseling Given: Not Answered Alcohol Use Standard Drinks/Week Comments Never 0 [...] week 11/12/2023 How often do you attend judaism or pentecostal serv ices? Patient declined 11/12/2023 Do you belong to any clubs o r organizations such as judaism groups, unions, fraternal or athletic groups, or [...] Recorded Patient Health Questionnaire-2 Score 0 02/27/2024 [facility] of Occupat ional Health - Occupational Stress [...] any time in the past 12 m [facility], were you homeless or living in a [place] health care facility (including now)? No 11/12/2023 Comments No Sex and Gender Information Value Date Recorded Sex Assigned at Not on file Legal Sex Female 7:30 PM EDT Gender Identity Not on file Sexual Orientation Not on file documented as of this encounter Last Filed Vital Signs Vital Sign Reading Time Taken Comments Blood Pressure - - Pulse - - Temperature - - Respiratory Rate - - Oxygen Saturation - - Inhaled Oxygen Concentration - - Weight 92.1 kg (203 lb) 10/14/2024 10:34 AM EDT Height 167.6 cm (5' 6 ) 10/14/2024 10:34 AM EDT Body Mass Index 32.77 10/14/2024 10:34 AM EDT documented in this encounter Progress Notes * Darien Blanca DPM - 10/14/2024 10:30 AM EDT Images from the original note were not included. Subjective Patient ID: Bertha Duckworth is a 74 y.o. female who presents for FUV Metanx (Bertha Duckworth 74yoNew Patient presents for 3 month FUV of Metanx therapy. Patient relates she did not start Metanx due to cost. Patient would like a refill for the Alpha Lipoic acid. Patient had an appt. Yesterday with Neurology at [facility] in [place] (dr. Guevara)SS: 10). HPI Established patient returns to clinic for follow up evaluation of neuropathy. She was unable to afford met next. She has been taking alpha lipoic acid and mgtm-ivv-sqjpzij vitamin-B complex with somemild improvement. She still has some tingling sensations and bilateral foot pain. Patient states that she started noticing itching sensations over the dorsum of the left foot a couple of weeks ago. She does not note any rash. Patient has concerned about a callus that is painful on the medial aspectof the left great toe. She also did see vascular who is following up with her. Review of Systems Constitutional: Negative for activity change and appetite change. Respiratory: Negative for chest tightness and shortness of breath. Cardiovascular: Negative for chest pain. Musculoskeletal: Positive for arthralgias and gait problem. Skin: Negative for color change and wound. Neurological: Positive for weakness and numbness. Psychiatric/Behavioral: Negative for agitation and behavioral problems. Hematological: Does not bruise/bleed easily. Endocrine: Negative for cold intolerance and heat intolerance. Allergic/Immunologic: Negative for immunocompromised state. Past medical History Past Medical History: Diagnosis Date Actinic keratosis Cancer (HCC) 399735 Cataract CTS (carpal tunnel syndrome) 09/2022 Disease of thyroid gland 1985 Dry eyes Family history of thyroid problem High cholesterol Hx of breast cancer 2006 Personal history of other medical treatment thyroid Tear of meniscus of knee [id number] Trigger finger [id number] Visual impairment 02/2021 Medications Current Outpatient Medications: Alpha Lipoic Acid 200 MG capsule, Take 200 mg by mouth in the morning and 200 mg before bedtime., Disp: 180 capsule, Rfl: 0 aspirin 81 MG EC tablet, Take 1 tablet (81 mg) by mouth Daily, Disp: 90 tablet, Rfl: 3 B Complex-C (b complex-vitamin c) tablet, Take 1 tablet by mouth in the morning., Disp: , Rfl: cholecalciferol (Vitamin D-3) 125 MCG (5000 UT) tablet, Take 1 tablet (125 mcg) by mouth Daily, Disp: 90 tablet, Rfl: 0 levothyroxine (Synthroid) 75 MCG tablet, Take 1 tablet (75 mcg) by mouth in the morning. Take before meals., Disp: 90 tablet, Rfl: 1 nicotine polacrilex (Commit) 2 MG lozenge, Place 2 mg into mouth between cheek and gum every 4 (four) hours if needed, Disp: , Rfl: rosuvastatin (Crestor) 40 MG tablet, Take 1 tablet (40 mg) by mouth in the evening, Disp: 90 tablet, Rfl: 1 Allergies Atorvastatin and Penicillins Past Surgical History Past Surgical History: Procedure Laterality Date BREAST SURGERY 2006 CARPAL TUNNEL RELEASE Right 04/05/2023 DR FIGUEROA CATARACT EXTRACTION CHOLECYSTECTOMY INTRAOCULAR LENS INSERTION 02/2023 JOINT REPLACEMENT 09/2021 KNEE SURGERY Left 2005 Dr Arroyo OTHER SURGICAL HISTORY 05/2020 Nodule removed on esophgus PARS PLANA VITRECTOMY W/ EMP STRIPPING Bilateral 2021 R.V.A. TONSILLECTOMY TOTAL KNEE ARTHROPLASTY Left 09/21/2021 DR ARROYO TRIGGER FINGER RELEASE Right 02/07/2021 (R) MF ; DR ARROYO TUBAL LIGATION 1982 Family History Family History Problem Relation Name Age of Onset Diabetes Mother Valerie Stroke Mother Valerie Cancer Father Rufus Cancer Sister Claudia Diabetes Sister Claudia Cancer Other [facility] Stroke Sister Shira Melanoma Neg Hx Objective Physical Exam Constitutional: Appearance: She is obese. HENT: Head: Normocephalic and atraumatic. Cardiovascular: Comments: DP pulses palpable 1/4, PT pulses nonpalpable. Mild edema at the ankles bilaterally. Multiple telangiectasias and varicosities bilaterally. Dependent rubor to the toes. No tissue loss noted. Pulmonary: Effort: Pulmonary effort is normal. No respiratory distress. Abdominal: Palpations: There is no mass. Musculoskeletal: Cervical back: No rigidity. Comments: Weightbearing examination reveals slight planus morphology. She is able to perform a double heel rise test without tenderness. I can not recreate any tenderness to palpation bilaterally. Range of motion of the 1st MTP limitedto about 20 degrees of dorsiflexion. No crepitus bilaterally. No tenderness with range of motion ofthe 1st MTP bilaterally. No tenderness to the forefoot noted. Muscle strength 4/5 for all quadrants. Ankle dorsiflexion 0 degrees with the knee extended, flexed. Skin: Capillary Refill: Capillary refill takes 2 to 3 seconds. Findings: No lesion or rash. Comments: Slightly thin. Hair growth absent. Hyperkeratotic tissue present to the medial aspect of the left hallux IPJ. Slightly tender with compression. No pinpoint, thrombosed capillaries. Skin lines passed through the lesion. Neurological: Mental Status: She is alert. Comments: Negative Tinel sign with percussion of the tibial nerves, deep peroneal nerves, common peroneal nerves, superficial peroneal nerves bilaterally. Negative straight leg raise test bilaterally. Psychiatric: Mood and Affect: Mood normal. Behavior: Behavior normal. Assessment/Plan ICD-10-CM 1. Neuropathy, idiopathic G60.9 Alpha Lipoic Acid 200 MG capsule 2. Peripheral vascular disease I73.9 3. Smoker F17.200 4. Corns and callosities L84 5. Left foot pain M79.672 6. Neuritis M79.2 Alpha Lipoic Acid 200 MG capsule Patient examined and evaluated. Overall she is making some mild improvement with the alpha lipoic acid medication. I did send in a refill for this prescription today. Additionally we discussed continuing treatment options in regards to the painful neuropathy. I discussed nerve modulators and other medications that she can discuss with her primary care physician. Additionally she was concerned abou t the callus formation over the left great toe. Sterile 15. Blade utilized by me to debride all hyperkeratotic tissue without incident. Recommend lotion in this area daily as well as using a pumice stone regularly to reduce buildup. In regards to the itching sensation that she is getting on the right foot I do not see any rash and it could be part of the neuropathy. I recommend applying lotion tothe foot daily. I also recommend topical hydrocortisone. Lastly I recommend topical lidocaine if she still is getting issues and itching that is not helped by the lotion and steroid cream. Today I spent over 30 minutes in nhqf-ik-iecp time discussing with the patient on eating whole food plant centered diets, smoking cessation and walking exercise to improve some of the neuropathy symptoms. This note was created with the assistance of a speech recognition program. While intending to generate a timely document that accurately reflects the content of the visit, no guarantee can be provided that every grammatical or spelling mistake has been or will be identified or corrected. Thank you for your understanding. Darien Blanca DPM documented in this encounter Plan of Treatment Upcoming Encounters Date Type Department Care Team (Late st Contact Info) Description 11/09/2024 3:00 PM EDT Office Visit [facility] [address] [place] [address] Delmi Love NP [address] [place] [address] 01/20/2025 1:30 PM EDT Office Visit [facility] [address] [place] [address] Panda Campos DO [address] [place] [address] 03/23/2025 1:35 PM EST Office Visit [facility] [address] [place] [address] Shira Tan MD [address] [place] [address] 10/20/2025 11:00 AM EDT Office Visit [facility] [address] [place] [phone] Cliff Hong PA [address] [facility] [address] [place] [address] documented as of this encounter Visit Diagnoses Diagnosis Neuropathy, idiopathic- Primary Other specified idiopathic peripheral neuropathy Peripheral vascular disease Unspecified peripheral vascular disease Smoker Tobacco use disorder Corns and callosities Left foot pain Pain in soft tissues of limb Neuritis Unspecified neuralgia, neuritis, and radiculitis documented in this encounter Additional Health Concerns Assessment Noted Time PHQ-9 Depression Total Score: 0 02/27/20 24 11:00 AM EST documented as of this encounter Care Teams Railroad Purchasing Agent Relationship Specialty Start Date End Date Moustapha De Leon MD [address] [place] [address] PCP - General Family Medicine 11/08/23 Stephanie Peters OD [address] [place] [address] Referring Physician Optometry 11/08/23 Delmi Love NP [address] [place] [address] Nurse Practitioner Family Medicine 07/15/24 documented as of this encounter
--- OUTSIDE RECORDS SUMMARY | 2024-10-19 11:14 | XMS_ITS ---
Author Name Auto Generated Organization OHIP Support Name Relationship Address Phone JERRY GALARZA Next of Kin Unknown [phone] STIELENA JERRY Next of Kin Unknown [phone] STINER, JERRY Next of Kin Unknown [phone] STIELENA JERRY Next of Kin Unknown [phone] STIELENA JERRY Next of Kin Unknown [phone] STIELENA, JERRY Next of Kin Unknown [phone] Jake Galarzanie Next of Kin [address] [place] [address] + MICHELL JERRY Next of Kin Unknown [phone] SAVI GALARZA Next of Kin Unknown [phone] MICHELL, JERRY Next of Kin Unknown [phone] MICHELL SAVI Next of Kin Unknown [phone] ÁNGELNER, JERRY Next of Kin Unknown [phone] ÁNGELNER, JERRY Next of Kin Unknown [phone] ÁNGELNER, JERRY Next of Kin Unknown [phone] STINER, JERRY Next of Kin Unknown [phone] ÁNGELNER, JERRY Next of Kin Unknown [phone] STINER, JERRY Next of Kin Unknown [phone] STINER, JERRY Next of Kin Unknown [phone] STINER, JERRY Next of Kin Unknown [phone] Michell Jerry Next of Kin [address] [place] [address] [place] [address] + STILTNER, JERRY Next of Kin Unknown [phone] STILTNER, JERRY Next of Kin Unknown [phone] STILTNER, JERRY Next of Kin Unknown [phone] STILTNER, JERRY Next of Kin Unknown +[phone] STILTNER, JERRY Next of Kin Unknown +[phone] STILTNER, JERRY Next of Kin Unknown +[phone] STILTNER, JERRY Next of Kin Unknown +[phone] STILTNER, JERRY Next of Kin Unknown +[phone] STILTNER, JERRY Next of Kin Unknown +[phone] STILTNER, JERRY Next of Kin Unknown [phone] STILTNER, JERRY Next of Kin Unknown [phone] Care Team Providers Care Brush Worker Name Role Phone DANDY CORREA Attending Unavailable LYNSEY ORTIZ Attending Unavailmilton e KAITLYNN GRIFFITH Attending Unavailable KAITLYNN GRIFFITH Referring Unavailable KAITLYNN GRIFFITH Referring Unavailable AME JEAN Attending Unavailable AME JEAN Referring Unavailable DANDY CORREA Attending Unavailable LYNSEY ORTIZ Attending Unavailmilton e LYNSEY ORTIZ Referring Unavailabl e LYNSEY ORTIZ Attending UnavailGALE Mendez Attending Unavailable AICHHOLZ, MODESTO Attending Unavailable RUSHER KAITLYNN S Referring Unavailable AICHHOLZ, MODESTO Attending Unavailable STEPH GANT Referring Unavailable AICHHOLZ, MODESTO Attending Unavailable AICHHOLZ, MODESTO Referring Unavailable AICHHOLZ, MODESTO Referring Unavailable JAMIA OCHOA Attending Unavailable AICHHOLZ, MODESTO Referring Unavailable RUSHERKAITLYNN Attending Unavailable LYNSEY ORTIZ Attending UnavailBENJAMIN Hardwick Attending Unavailable AICHVIVIAN, MODESTO Attending Unavailable Taiwo Rosa Admitting Unavailable Taiwo Rosa Attending Unavailable Ortiz, Lynsey N Primary Care Unavaila ble Yuliet Perez Attending Unavailable Yuliet Perez Admitting Unavailable HOUSE, ABDIFATAH P Referring Unavailable HOUSE, ABDIFATAH P Primary Care Unavailable STEPH GANT Attending Unavailable KAITLYNN GRIFFITH Referring Unavailable HOUSE, ABDIFATAH P Primary Care Unavailable ANN JARRETT Attending Unavailable ALGGARRET, ANN Attending Unavailable GAURAV SCHMITT Attending Unavailable PROBLEMS DATE TYPE CONDITION / CODE ATTENDING STATUS [facility] 10/19/2024 Admitting Diagnosis Other chest pain / R07.89(ICD-10) GAURAV SCHMITT [facility] 06/02/2024 Admitting Diagnosis Nicotine dependence, unspecified, uncomplicated / F17.200(ICD-10) [facility] 12/04/2023 Admitting Diagnosis Mixed hyperlipidemia / E78.2(ICD-10) [facility] 10/19/2024 Admitting Diagnosis Other forms of dyspnea / R06.09(ICD-10) [facility] 10/19/2024 Admitting Diagnosis Unspecified right bundle-branch block / I45.10(ICD-10) [facility] 10/19/2024 Admitting Diagnosis Abnormal electrocardiogram (ECG) (EKG) / R94.31(ICD-10) GAURAV SCHMITT [facility] 09/10/2024 Unknown Dysuria / R30.0(ICD-10) Yuliet Perez [facility] 08/18/2024 Unknown Localized edema / R60.0(ICD-10) STEPH GANT [facility] 08/18/2024 Unknown New Patient / FREETEXT(AOF) STEPH GANT [facility] 08/12/2024 Unknown Pain, unspecifie d / R52(ICD-10) NA [facility] 05/01/2024 Unknown Encounter for or reening for malignant neoplasm of colon / Z12.11(ICD-10) Taiwo Rosa [facility] PROCEDURES No Procedure Records Found RESULTS PROGRESS Observed: 10/19/2024 11:20 AM Status: COMPLETED Source: [facility] SUBJECTIVE Reason for Visit: Bertha Galarza is a 74 y.o. year old female patient being seen for 6-month follow-up visit. HPI: Bertha Galarza is a 74 y.o. year old female with significant medical history of abnormal ECG, cancer, and hyperlipidemia previously referred to cardiology for evaluation of RBBB on EKG. 10/19/2024 office visit: Patient was evaluated in clinic today for intermittent chest discomfort described as mild, without clear triggers, and occasionally radiating to the neck and jaw. She has a significant smoking history of 1 pack per day since age 23 and a strong family history of premature cardiovascular disease, including a mother with CABG and siblings with cardiac stents, concerning for possible cardiac etiology. She also reports peripheral neuropathy with exertional foot and ankle pain, along with dyspnea on exertion that limits her to walking approximately 50 feet, making her a poor candidate for exercise-based stress testing. She denies palpitations, lightheadedness, dizziness, or lower extremity edema. A Lexiscan stress test will be ordered. 06/02/2024 office visit (Dr. Jarrett): Patient adamantly denies any cardiac complaints or [...] Carotid Doppler without evidence of significant stenosis. Medical History[1] Surgical History[2] Problem List[3] family history includes Coronary artery disease in her brother, mother, and sister. Social History[4] OBJECTIVE Visit Vitals Smoking Status Every Day Physical Exam Constitutional: General Appearance: well-developed, appears stated age. Level of Distress: no acute distress. Neck: Jugular Veins: normal jugular venous pressure. Lungs: Auscultation: no rales or rhonchi and normal breath sounds. Cardiovascular: Rate And Rhythm: regular Heart Sounds: normal S1 and s2; Systolic Murmur: not heard. Diastolic Murmur: not heard. Extremities: no edema Peripheral Pulses: Pulses: full and equal in all extremities except if noted. Abdomen: Inspection and Palpation: non distended or tender and soft. Musculoskeletal: Inspection: no joint tenderness or swelling. Neurologic: Gait: normal gait. Psychiatric: Mental Status: alert and normal affect. Skin: Inspection and Palpation: warm and dry. Allergies: Allergies[5] Outpatient Medications: Current Outpatient Medications Medication Instructions aspirin 81 mg, oral, Daily RT levothyroxine (SYNTHROID, LEVOXYL) 75 mcg, oral rosuvastatin (CRESTOR) 40 mg, oral, Daily RT Recent Labs: No visits with results within 6 Month(s) from this visit. Latest known visit with results is: No results found for any previous visit. Most recent labs reviewed, 08/26/2024: WBC 8.1, hemoglobin 14.3, platelets 230 TSH 0.301, free T4 1.17, free T3 2.44, I have personally reviewed and anaylzed the following laboratory results above. These findings have been analyzed in the context of the patient's clinical presentation. Cardiovascular Diagnostic Studies: TTE 11/28/2023: 12 Lead ECG: No results found for this or any previous visit (from the past 4464 hours). Twelve-lead ECG 08/26/2024: I have personally reviewed and analyzed all available cardiac diagnostic tests and imaging reports. Findings have been analyzed in the context of the patient's clinical status. Assessment and Plan #Chest Pain #AKHTAR Patient reports intermittent chest discomfort that is mild, without identifiable triggers, and occasionally radiates to the neck and jaw. She has a significant smoking history (1 pack per day; lifetime smoker since age 23) and a strong family history of premature cardiovascular disease (mother with CABG; brother and sister with cardiac stents), making a cardiac etiology a concern. Additionally, she has peripheral neuropathy with exertional feet/ankle pain and dyspnea on exertion, limiting her to ambulating ~50 feet. These limitations render her a poor candidate for exercise-based stress testing. - Will proceed with pharmacologic stress testing using Lexiscan due to limited functional capacity #RBBB Initially referred to Cardiology clinic for evaluation of RBBB on EKG Stable, asymptomatic. Denies syncope or presyncope. Twelve-lead ECG 10/19/2024 today stable findings #Hyperlipidemia Recent lipid panel reviewed, 02/18/2024: LDL 49, HDL 49, triglycerides 313, total cholesterol 160 Stable - Will repeat lipid panel - Consider addition of agents if triglycerides remain elevated. - Continue rosuvastatin 40 mg daily #Tobacco dependence Lifetime smoker, started when she was 23 Currently smokes 1 pack/day (she reports that she has cut down) Counseled the patient on smoking cessation She has tried Chantix and nicotine patches in the past She is currently not ready to start quitting at this moment and we will readdress at next visit #Hypothyroidism On levothyroxine 75 mcg Plan Overview: Repeat lipid panel Lexiscan stress test Follow-up 4 weeks No follow-ups on file. Gaurav Schmitt [facility] [1] Past Medical History: Diagnosis Date Abnormal ECG Cancer (CMS/HCC) Hyperlipidemia [2] Past Surgical History: Procedure Laterality Date CARPAL TUNNEL RELEASE CATARACT EXTRACTION CHOLECYSTECTOMY FINGER SURGERY KNEE SURGERY [3] Patient Active Problem List Diagnosis Bilateral posterior capsular opacification Breast cancer (CMS/HCC) Cystitis Dry eyes Epiretinal membrane (ERM) of both eyes Hoarseness Hollenhorst plaque, right eye Hyperlipidemia Hypertriglyceridemia Hypothyroid Lesion of vocal cord Nasal congestion Personal history of malignant neoplasm of breast Smoking Acute non-recurrent maxillary sinusitis Acute URI Blepharitis of upper and lower eyelids of both eyes Encounter for osteoporosis screening in asymptomatic postmenopausal patient Impacted cerumen of left ear Positive colorectal cancer screening using Cologuard test Prediabetes Tobacco dependence [4] Social History Tobacco Use Smoking status: Every Day Current packs/day: 1.50 Types: Cigarettes Smokeless tobacco: Never Substance Use Topics Alcohol use: Yes Comment: once a week [5] Allergies Allergen Reactions Atorvastatin Other myalgias Penicillins Hives, Itching and Rash OFFICE VISIT Observed: 10/19/2024 11:20 AM Status: COMPLETED Source: [facility] [id number] Bertha Galarza 1950 F Date Provider Department Center 10/19/2024 [id number], ADAM CARD [facility] Family History Problem Relation Age of Onset Coronary artery disease Mother Coronary artery disease Sister Coronary artery disease Brother Family Status - Relation Status Age at Mother Sister Brother Level of Service:63950 [place] OFFICE/OUTPATIENT ESTABLISHED MOD MDM 30 MIN XR LUMBAR SPINE 2-3 VIEWS Observed: 09/13 10:51 AM Status: F Source: [facility] Title of exam: XR LUMBAR SPI NE 2-3 VIEWS Reason for exam: Lumbar pain with radiculopathy Comparison: None 3 images. Prevertebral soft tissues are normal in thickness. Vertebral body height is maintained from the skull base to the bottom of C7. The top of T1 is not visualized. Anterior and posterior spurring present at C4-C5, C5-C6, C6-C7 with endplate sclerosis and disc space narrowing pronounced at C6-C7. Narrowing of the C1-C2 articulation is present. The lateral masses and dens are normal alignment in the frontal projection. The tip of the dens is obscured. The spinous processes are normal alignment the frontal projection. Uncovertebral hypertrophy present in the mid cervical spine. Lung apices without abnormality. Atherosclerosis. IMPRESSION: 1. Moderate diffuse cervical spondylosis from C4-C7. Most pronounced at C6-C7. 2. Arthritic changes of the C1-C2 articulation. 3. The C7-T1 articulation is not visualized. Recommend swimmer's view to complete the series. This report is generated using voice recognition reporting ([employer]). On occasion, [employer] erroneously drops words from the report or replaces the spoken word with a similar sounding word. Please call with any questions/concerns regarding the report. Dictated on: 09/28/2024 1:06 PM 09/28/2024 9:36 AM This report has been electronically signed and approved by the interpreting Radiologist. XR CERVICAL SPINE 2-3 VIEWS Observed: 10:51 AM Status: F Source: [facility] Title of exam: XR CERVICAL S PINE 2-3 VIEWS Reason for exam: Chronic neck pain Comparison: None 3 images. For counting purposes there are 5 nonrib-bearing type lumbar vertebral bodies. Vertebral body height is maintained. 1.1 cm of anterolisthesis of L4 on L5 is present. 6.6 mm of anterolisthesis of L5 on S1 with disc space narrowing. No definite spondylolysis. No angulation. No focal bone lesion. The sacral struts and sacroiliac joints are preserved. Diffuse atherosclerosis. Moderate amount of stool in the colon. Postoperative changes of the right upper quadrant. IMPRESSION: 1. Grade 1 spondylolisthesis of L4 on L5 and L5 on S1 without spondylolysis by this technique. 2. Atherosclerosis. Dictated on: 09/28/2024 1:08 PM This report has been electronically signed and approved by the interpreting Radiologist. This report is generated using voice recognition reporting ([employer]). On occasion, Blink (air taxi)cribe erroneously drops words from the report or replaces the spoken word with a similar sounding word. Please call with any questions/concerns regarding the report. URINE CULTURE Observed: 09/10/2024 2:13 PM Status: F Source: [facility] ORGANISM: Escherichia coli ( O:ESCCOL) [place] Count >100,000 Aerobic ALMA Charge (NMIC56) SUSCEPTIBILITY ORGANISM: O:ESCCOL ANTIBIOTIC INTERPRETATION ALMA Amikacin S <16 Amoxacillin/K Clavulanate S <8 Ampicillin S <8 Ampicillin/Sulbactam S <4 Aztreonam S <4 Cefazolin S <2 Cefepime S <2 Ceftazidime S <1 Ceftazidime/Avibactam S <4 Ceftolozane/Tazobactam S <2 Ceftriaxone S <1 Cefuroxime S <4 Ciprofloxacin S <0.25 Ertapenem S <0.5 Gentamicin S <2 Levofloxacin S <0.5 Meropenem S <1 Meropenem/Vaborbactam S <2 Nitrofurantoin S <32 Piperacillin/Tazobactam S <8 Tetracycline S <4 Tigecycline S <2 Tobramycin S <2 Trimethoprim/Sulfamethoxazole S <0.5 S = SUSCEPTIBLE I = INTERMEDIATE R [...] RESISTANT TO ALL B-LACTAM DRUGS. PERFORMED BY: [place] [address] PATHOLOGIST PALEOBOTANIST DAVI BURGOS M.D. Performed By: #### [facility] #### [address] VASC US LOWER EXTREMITY VENOUS INSUFFICIENCY BILATERAL Observed: 08/25/2024 11:22 AM Status: F Source: [facility] EXAM: Bilateral Lower Extrem ity Venous Insufficiency Ultrasound: REASON FOR EXAM: Edema COMPARISON: None TECHNIQUE: Longitudinal and transverse grayscale, color Doppler, spectral wave analysis used to evaluate the lower extremity venous systems bilaterally. There is normal compressibility, Doppler signal, response to augmentation and respiratory variability of the lower extremity deep venous system. No reflux of the deep or superficial system on the right. Mild reflux of the upper greater saphenous vein on the left. Measurements: Right: Left: Vein: Diameter: Reflux (msec) Vein: Diameter: Reflux (msec) CFV: 0.96 / ---- CFV: 1.41 / ----- SF/GSV Junc: 1.08 / 0.47 SF/GSV Junc: 1.10 / 0.63 / ----- SFV Prox: 0.74 / ---- SFV Prox: 0.66 / ---- SFV Mid: 0.49 / ---- SFV Mid: 0.56 / ---- SFV Dist: 0.61 / ---- SFV Dist: 0.74 / ---- POP: 1.17 / ---- POP: 0.91 / --- GSV Prox: 0.57 / ---- GSV Prox: 0.45 / 238 GSV Mid: 0.37 / ----- GSV Mid: 0.41 / ---- GSV Dist: 0.41 / ---- GSV Dist: 0.44 / ---- GSV Knee: 0.33 / ---- GSV Knee: 0.22 / ---- GSV Calf: 0.21 / ---- GSV Calf: 0.33 / --- GSV: Mid: 0.20 / --- GSV: Mid: 0.30 / --- GSV Ankle: 0.36 / ---- GSV Ankle: 0.23 / --- Marlys V: 0.66 / --- Marlys V: 0.87 / ---- PTV Prox: 0.39 / 0.33 / --- PTV Prox: 0.36 / 0.36 / ---- PTV Mid: 0.27 / 0.37 / ---- PTV Mid: 0.36 / 0.36 / ---- PTV Dist: 0.29 / 0.31 / --- PTV Dist: 0.33 / 0.27 / ---- IMPRESSION: 1. No sonographic evidence of superficial or deep venous thrombosis. 2. Mild focal reflux left proximal greater saphenous vein. *This report is generated using voice recognition reporting ([employer]). On occasion Power[employer]ribe erroneously drops words from the report or replaces the spoken word with similar sounding words. Please call with any questions/concerns regarding this report.* Dictated and transcribed 08/25/24/dpd This report has been electronically signed and approved by the interpreting radiologist. [facility] PVR/SEGMENTAL PRESSURES LOWER Observed: 07/15/2024 12:00 AM Status: F Source: [facility] Order Comment: Requesting se gmental pressures with PVRs and TBIs. Thank you. EXAM: Lower Extremity PVR/Se gmental Pressures Vascular Ultrasound. REASON FOR EXAM: PVD COMPARISON: None TECHNIQUE: Blood pressure cuffs were applied and measurements were obtained with waveform analysis. FINDINGS: Brachial pressure R/L: 116/133 Right lower extremity: Upper thigh pressure/index: 194/1.46 Distal thigh pressure/index: 151/1.14 Calf pressure/index: 162/1.22 PT pressure/index: 152/1.14 DP pressure/index: 143/1.08 Great Toe pressure/index: 99/0.74 Left lower extremity: Upper thigh pressure/index: 154/1.16 Distal thigh pressure/index: 155/1.17 Calf pressure/index: 155/1.17 PT pressure/index: 140/1.08 DP pressure/index: 157/1.18 Great Toe pressure/index: 121/0.91 IMPRESSION: Normal arterial indices bilaterally. No evidence for significant arterial occlusive disease. *This report is generated using voice recognition reporting ([employer]). On occasion Power[employer]ribe erroneously drops words from the report or replaces the spoken word with similar sounding words. Please call with any questions/concerns regarding this report.* Dictated and transcribed 07/20/2024/tm This report has been electronically signed and approved by the interpreting radiologist. OFFICE VISIT Observed: 06/02/2024 2:40 PM Status: COMPLETED Source: [facility] [id number] Bertha Galarza 1950 F Date Provider Department Center 06/02/2024 3848-ANN JARRETT [facility] Family History Problem Relation Age of Onset Coronary artery disease Mother Coronary artery disease Sister Coronary artery disease Brother Family Status - Relation Status Age at Mother Sister Brother Level of Service:[id number] [place] OFFICE/OUTPATIENT ESTABLISHED LOW [facility] 20 MIN PROGRESS Observed: 06/02/2024 2:40 PM Status: COMPLETED Source: [facility] Cardiology Clinic Note HPI: Bertha Galarza is a 74 y.o. [...] or concerns. Ann Jarrett MD Interventional Cardiology [facility] Observed: 05/01/2024 10:32 AM Status: F Source: [facility] ----- ------- Specimen: [id number] Received: 05/01/24 Status: LUCAS Shaw Num: [id number] Spec Type: Surgical Subm Dr: Taiwo Rosa MD Tissues: A Colon Biopsy (CECUM COLON POLYPS) B Colon Biopsy (TRANSVERSE COLON POLYPS) C Colon Biopsy (DESCENDING COLON POLYPS) D Colon Biopsy (SIGMOID COLON POLYP) Procedures: /10, Gross/Micro L4/4 ----- ------- Age/ Patient Sex Location Account Attending Physician ----- ------- Bertha Galarza 74/F [id number] Taiwo Rosa MD ----- ------- SPEC NUM: [id number] RECD: 05/01/24 STATUS: LUCAS SHAW NUM: [id number] ANGELITA: 05/01/[address] [facility] [address]: Taiwo Rosa MD ENTERED: 05/01/[address]: SPEC TYPE: Surgical DEPT: S ENTERED BY: [id number] RECV BY: [id number] ORDERED: HE/10, Gross/Micro L4/4 ORDERED: HE/10, Gross/Micro [...] submitted in a single cassette. (1, ns, [id number] A) GENE ----- ------- Specimen: [id number] Received: 05/01/24 Status: LUCAS Shaw Num: [id number] Spec Type: Surgical Subm Dr: Taiwo Rosa MD Tissues: A Colon Biopsy (CECUM COLON POLYPS) B Colon Biopsy (TRANSVERSE COLON POLYPS) C Colon Biopsy (DESCENDING COLON POLYPS) D Colon Biopsy (SIGMOID COLON POLYP) Procedures: HE/10, Gross/Micro L4/4 ----- ------- Patient: Bertha Galarza [id number] (Continued) ----- ------- Specimen: [id number] Received: 05/01/24 (Continued) Gross Description (Continued) Signed (signature on file) Rik Juárez MD 05/04/24 1453 ----- ------- Specimen: [id number] Received: 05/01/24 Status: LUCAS Valeria Num: [id number] Spec Type: Surgical Subm Dr: Taiwo Rosa MD Tissues: A Colon Biopsy (CECUM COLON POLYPS) B Colon Biopsy (TRANSVERSE COLON POLYPS) C Colon Biopsy (DESCENDING COLON POLYPS) D Colon Biopsy (SIGMOID COLON POLYP) Procedures: Cayden HARRISON/Rand L4/4 ----- ------- Patient: Bertha Galarza [id number] (Continued) ----- ------- Specimen: [id number] Received: 05/01/245590 (Continued) Gross Description (Continued) Part B is [...] specimen entirely submitted in B2. (2, ns, D67- B) Part C is received in formalin labeled with the patients name, date of , and descending colon are 2 sen-boles, focally erythematous, friable, 0.3 and 0.5 cm in greatest dimension polypoid fragments. The specimen is entirely submitted in a single cassette. (1, ns, D96- C) Part D is received in formalin [...] submitted in a single cassette. (1, ns, J31- D) CPT Codes 24796h1 ----- ------- ----- ------- Specimen: [id number] Received: 05/01/24 Status: LUCAS Shaw Num: [id number] Spec Type: Surgical Subm Dr: Taiwo Rosa MD Tissues: A Colon Biopsy (CECUM COLON POLYPS) B Colon Biopsy (TRANSVERSE COLON POLYPS) C Colon Biopsy (DESCENDING COLON POLYPS) D Colon Biopsy (SIGMOID COLON POLYP) Procedures: /10, Gross/Micro L4/4 ----- ------- Patient: MichellBertha Mejía [id number] (Continued) ----- ------- Signed (signature on file) Rik Juárez MD 05/04/24 1453 PROGRESS Observed: 12/04/2023 2:00 PM Status: COMPLETED Source: [facility] Cardiology Clinic Note Chief Complaint: Pt is here to establish care. Pt has RBBB. She had echo, carotid us and lipids done two weeks ago. Saw eye recently and was told she has plaque build up on the small vessels of the eyes. She smokes 1.5 PPD. HPI: Bertha Kym Galarza is a 73 y.o. female who [...] or concerns. Ann Jarrett MD Interventional Cardiology [facility] OFFICE VISIT Observed: 12/04/2023 2:00 PM Status: COMPLETED Source: [facility] [id number] Bertha Galarza 1950 F Date Provider Department Center 12/04/2023 3848-ANN JARRETT [facility] Family History Problem Relation Age of Onset Coronary artery disease Mother Coronary artery disease Sister Coronary artery disease Brother Family Status - Relation Status Age at Mother Sister Brother Level of Service:41473 [place] OFFICE/OUTPATIENT [facility] 30 MINUTES VASC US CAROTID ARTERY DUPLE X BILATERAL Observed: 11/20/2023 11:27 AM Status: F Source: [facility] EXAM: Carotid Ultrasound. REASON FOR EXAM: Hypertriglycerdemia. [...] report is generated using voice recognition reporting ([employer]). On occasion Parallel Enginese erroneously drops words from the report or replaces the spoken word with similar sounding words. Please call with any questions/concerns regarding this report.* Dictated and transcribed 11/25/23/dproyal This report has been electronically signed and approved by the interpreting radiologist. Electronically Signed Jamia Riddle M.D. 2023-11-25 14:40:34 ALLERGIES DATE TYPE / CODE NAME / CODE REACTION SEVERITY SOURCE 09/10/2024 Drug Allergy/4160 68895(SNOMED CT) penicillin G/[id number](RXNORM) Rash Unknown [facility] 08/11/2024 DRUG INGREDI/4195 53943(SNOMED CT) ATORVASTATIN [facility] 12/04/2023 DRUG INGREDI/4195 84493(SNOMED CT) ATORVASTATIN Other [facility] 12/18/2012 Drug Class/285462 003(SNOMED CT) PENICILLINS Rash [facility] 12/18/2012 Drug Class/934379 003(SNOMED CT) PENICILLINS Hives~Itching~Ra sh [facility] ENCOUNTERS ADMIT/DISCHARGE ACCOUNT NUMBER ADMITTING ENCOUNTER CLASS LOCATION SOURCE 10/19/2024/10/20/19 25 [id number] Ambulatory Building:[facility] 10/14/2024/10/15/19 25 [id number] Ambulatory Building:P [facility] 10/13/2024/10/14/19 25 [id number] Ambulatory Building:NOM S NEURO [facility] 09/28/2024/09/29/19 25 [id number] Ambulatory Building:R [facility] EP[facility] 09/28/2024/09/29/19 25 [id number] Ambulatory Building[facility] 09/24/2024/09/25/19 25 [id number] Ambulatory Building:[facility] EP[facility] 09/10/2024/09/11/19 25 [id number] [facility] 08/25/2024/08/26/19 25 [id number] Ambulatory Building:[facility] EP[facility] 08/18/2024/08/19/19 25 [id number] [address] [place] [address] Ambulatory [facility] 08/12/2024/08/13/19 25 [id number] Ambulatory Building:[facility] 08/12/2024 [id number] Ambulatory Building: k [facility] 07/20/2024/07/21/19 25 [id number] Ambulatory Building:[facility] 07/16/2024/07/17/19 25 [id number] Ambulatory Building:[facility] 07/15/2024/07/16/19 25 [id number] Ambulatory Building:[facility] 07/15/2024/07/16/19 25 [id number] Ambulatory Building:[facility] 07/15/2024/07/16/19 25 [id number] Ambulatory Building:[facility] EPIC 06/02/2024/06/02/19 25 [id number] Ambulatory Building:[facility] 05/28/2024/05/28/19 25 [id number] Ambulatory Building:[facility] 05/25/2024/05/25/19 25 [id number] [facility] 05/01/2024/05/01/19 25 [id number] [facility]wo [facility] 04/13/2024/04/13/20 24 [id number] Ambulatory Building:[facility] 03/23/2024/03/23/20 24 [id number] [facility] 02/27/2024/02/27/20 24 [id number] Ambulatory Building:[facility] 02/13/2024/02/13/20 24 [id number] Ambulatory Building:NOM S CI POD [facility] 12/19/2023/12/19/19 24 [id number] Ambulatory Building:[facility] 12/04/2023/12/04/19 24 [id number] Ambulatory Building:[facility] 11/20/2023/11/20/19 24 [id number] Ambulatory Building:NOM SFNRUS [facility] 11/18/2023/11/18/19 24 [id number] Ambulatory Building:[facility] 11/08/2023/11/08/19 24 [id number] Ambulatory Building:NOM S NB [facility] EPIC 10/22/2023/10/22/19 24 [id number] Ambulatory Building:[facility] EPIC 10/22/2023/10/22/19 24 [id number] Ambulatory Building:[facility] PAYERS ENCOUNTER GUARANTOR PAYER SUBSCRIBER SOURCE 10/19/2024 Primary Insurance:ANTHEM MEDICARE ADVANTAGEPolicy Number: [id number] Date:2023-04-15 BERTHA GALARZADOB: [id number] [facility] [place] [address] [facility] 10/14/2024 BERTHA GALARZADOB: [place] [address]Bur: (HP) Primary Insurance:ANTHEM MEDICARE ADVANTAGEPolicy Number: [id number] Date:2021-04-15 BERTHA A STILTNERDOB: [id number] [place] [address] [facility] 10/13/2024 BERTHA Kym STILTNERDOB: [place] [address]Zyj: (HP) Primary Insurance:ANTHEM MEDICARE ADVANTAGEPolicy Number: [id number] Date:2021-04-15 BERTHA A STILTNERDOB: [id number] [facility] [facility] [place] [address] [facility] 09/28/2024 BERTHA A STILTNERDOB: [facility] [place] [address]Nyf: (HP) Primary Insurance:ANTHEM MEDICARE ADVANTAGEPolicy Number: [id number] Date:2021-04-15 BERTHA A STILTNERDOB: [id number] [place] [address] [facility] 09/28/2024 BERTHA A STILTNERDOB: [address] SANCHEZCENTRAL [place] [address]Ist: (HP) Primary Insurance:ANTHEM MEDICARE ADVANTAGEPolicy Number: [id number] Date:2021-04-15 BERTHA Kym STILTNERDOB: [id number] [facility] [place] [address] [facility] 09/24/2024 BERTHA A STILTNERDOB: [place] [address]Fcj: (HP) Primary Insurance:ANTHEM MEDICARE ADVANTAGEPolicy Number: [id number] Date:2021-04-15 BERTHA Mejía STILTNERDOB: [id number] [place] [address] [facility] 09/10/2024 Bertha Mejía [id number] [place] [address]Qwe: (HP) Primary Insurance:[facility] PFFSPolicy Number: [id number] Date:2024-09-10 Bertha Mejía StiltnerDOB: [id number] [place] [address]Wdy: (HP) [facility] 09/10/2024 Secondary Insurance:Self PayPolicy Number: Effective Date:2024-09-10 [facility]/2024 BERTHA Mejía ÁNGELNERDOB: [place] [address]Isi: (HP) Primary Insurance:ANTHEM MEDICARE ADVANTAGEPolicy Number: [id number] Date:2021-04-15 BERTHA Mejía ÁNGELNERDOB: [id number] [place] [address] [facility] 08/18/2024 BERTHA LOPEZ STILTNERDOB: [place], [place] [address]Soi: (HP) Primary Insurance:ANTHEM MEDICARE ADVANTAGEPolicy Number: [id number] Date:2019-04-15 BERTHA LOPEZ STILTNERDOB: [id number] [place], [place] [address]Ohz: (HP) [facility] 08/12/2024 BERTHA Mejía ÁNGELNERDOB: [place] [address]Rod: (HP) Primary Insurance:ANTHEM MEDICARE ADVANTAGEPolicy Number: [id number] Date:2021-04-15 BERTHA Kym STILTNERDOB: [id number] [facility] [address] [facility] 08/12/2024 BERTHAFELIX LOPEZ STILTNERDOB: [place], [place] [address]Joj: (HP) Primary Insurance:ANTHEM MEDICARE ADVANTAGEPolicy Number: [id number] Date:2019-04-15 BERTHA LOPEZ STILTNERDOB: [id number] [place], [place] [address]Spu: (HP) [facility] 07/20/2024 BERTHA Mejía STILTNERDOB: [place] [address]Tjs: (HP) Primary Insurance:ANTHEM MEDICARE ADVANTAGEPolicy Number: [id number] Date:2021-04-15 BERTHA NEALNERDOB: [id number] [facility] [address] [facility] 07/16/2024 BERTHA Mejía STILTNERDOB: [place] [address]Psf: (HP) Primary Insurance:ANTHEM MEDICARE ADVANTAGEPolicy Number: [id number] Date:2021-04-15 BERTHA Mejía STILTNERDOB: [id number] [place] [address] [facility] 07/15/2024 BERTHA Mejía STILTNERDOB: [place] [address]Oro: (HP) Primary Insurance:ANTHEM MEDICARE ADVANTAGEPolicy Number: [id number] Date:2021-04-15 BERTHA A STILTNERDOB: [id number] [place] [address] [facility] 07/15/2024 BERTHA A STILTNERDOB: [place] [address]Cqx: (HP) Primary Insurance:ANTHEM MEDICARE ADVANTAGEPolicy Number: [id number] Date:2021-04-15 BERTHA A STILTNERDOB: [id number] [place] [address] [facility] 07/15/2024 BERTHA A STILTNERDOB: [place] [address]Pgw: (HP) Primary Insurance:ANTHEM MEDICARE ADVANTAGEPolicy Number: [id number] Date:2021-04-15 BERTHA A STILTNERDOB: [id number] [place] [address] [facility] 06/02/2024 Primary Insurance:ANTHEM MEDICARE ADVANTAGEPolicy Number: [id number] Date:2023-04-15 BERTHA Mejía STILTNERDOB: [id number] [place] [address] [facility] 05/28/2024 BERTHA Mejía STILTNERDOB: [place] [address]Qdc: (HP) Primary Insurance:ANTHEM MEDICARE ADVANTAGEPolicy Number: [id number] Date:2021-04-15 BERTHA A STILTNERDOB: [id number] [place] [address] [facility] 05/25/2024 BERTHA A STILTNERDOB: [place] [address]Ahc: (HP) Primary Insurance:ANTHEM MEDICARE ADVANTAGEPolicy Number: [id number] Date:2021-04-15 BERTHA Mejía STILTNERDOB: [id number] [place] [address] [facility] 05/01/2024 Bertha Mejía [id number] [place] [address]Djl: (HP) Primary Insurance:[facility] PFFSPolicy Number: [id number] Date:2024-03-31 Bertha Mejía StiltnerDOB: [id number] [place] [address]Rcs: (HP) [facility] 05/01/2024 Secondary Insurance:Self PayPolicy Number: Effective Date:2024-03-31 [facility] 04/13/2024 BERTHA A STILTNERDOB: [place] [address]Owf: (HP) Primary Insurance:ANTHEM MEDICARE ADVANTAGEPolicy Number: [id number] Date:2021-04-15 BERTHA Mejía STILTNERDOB: [id number] [place] [address] [facility] 03/23/2024 BERTHA A STILTNERDOB: [place] [address]Vdu: (HP) Primary Insurance:ANTHEM MEDICARE ADVANTAGEPolicy Number: [id number] Date:2021-04-15 BERTHA A STILTNERDOB: [id number] [place] [address] [facility] 02/27/2024 BERTHA Kym STILTNERDOB: [place] [address]Dxu: (HP) Primary Insurance:ANTHEM MEDICARE ADVANTAGEPolicy Number: [id number] Date:2021-04-15 BERTHA Kym STILTNERDOB: [id number] [place] [address] [facility] 02/13/2024 BERTHA A STILTNERDOB: [place] [address]Rpf: (HP) Primary Insurance:ANTHEM MEDICARE ADVANTAGEPolicy Number: [id number] Date:2021-04-15 BERTHA A STILTNERDOB: [id number] [place] [address] [facility] 12/19/2023 BERTHA A STILTNERDOB: [place] [address]Odm: (HP) Primary Insurance:ANTHEM MEDICARE ADVANTAGEPolicy Number: [id number] Date:2021-04-15 BERTHA A STILTNERDOB: [id number] [place] [address] [facility] 12/04/2023 Primary Insurance:ANTHEM MEDICARE ADVANTAGEPolicy Number: [id number] Date:2023-04-15 BERTHA A STILTNERDOB: [id number] [place] [address] [facility] 11/20/2023 BERTHA A STILTNERDOB: [place] [address]Gii: (HP) Primary Insurance:ANTHEM MEDICARE ADVANTAGEPolicy Number: [id number] Date:2021-04-15 BERTHA A STILTNERDOB: [id number] [place] [address] [facility] 11/18/2023 BERTHA A STILTNERDOB: [place] [address]Kbx: (HP) Primary Insurance:ANTHEM MEDICARE ADVANTAGEPolicy Number: [id number] Date:2021-04-15 BERTHA Kym ÁNGELNERDOB: [id number] [place] [address] [facility] 11/08/2023 BERTHA Kym STILTNERDOB: [place] [address]Tqm: (HP) Primary Insurance:ANTHEM MEDICARE ADVANTAGEPolicy Number: [id number] Date:2021-04-15 BERTHA Kym ÁNGELNERDOB: [id number] [place] [address] [facility] 10/22/2023 BERTHA NEALNERDOB: [place] [address]Yhh: (HP) Primary Insurance:ANTHEM MEDICARE ADVANTAGEPolicy Number: [id number] Date:2021-04-15 BERTHA Kym ÁNGELNERDOB: [id number] [place] [address] [facility] 10/22/2023 BERTHA YULTNERDOB: [place] [address]Deh: (HP) Primary Insurance:ANTHEM MEDICARE ADVANTAGEPolicy Number: [id number] Date:2021-04-15 BERTHA NEALNERDOB: [id number] [place] [address] [facility] EPIC
--- OUTSIDE RECORDS SUMMARY | 2024-10-19 11:20 | XMS_ITS | Encounter Summary ---
Author Organization [facility] Address [address] [place] [address] Care Team Providers Care Family Worker Name Role Phone Moustapha De Leon MD Primary Care Provider [phone] Reason for Referral * (Routine) - Pending Review Specialty Diagnoses / Procedures Referred By Jorge Luis sims Referred To Contact Diagnoses Other chest pain Procedures ECG 12 lead unit performed Gaurav Warren CNP [address] [place] [address] Phone: tel: fax: Referral ID Status Reason Start Date Expiration Date V isits Requested Visits Authorized [id number] Pending Review 10/19/2024 10/19/2025 1 1 Encounter Details Date Type Department Care Team (Late st Contact Info) Description 10/19/2024 11:20 AM EDT Office Visit [facility] [address] [place] [address] Gaurav Warren CNP [address], [place] [id number] Other chest pain (Primary Dx); AKHTAR (dyspnea on exertion); RBBB; Abnormal EKG; Mixed hyperlipidemia; Tobacco dependence Social History Tobacco Use Types Packs/Day Years Used Date Smoking Tobacco: Every Day Cigarettes Smokeless Tobacco: Never Alcohol Use Standard Drinks/Week Comments Yes 0 (1 standard drink = 0.6 oz pur e alcohol) once a week Comments Unknown Sex and Gender Information Value Date Recorded Sex Assigned at Not on file Legal Sex Female 1:39 PM EDT Gender Identity Not on file Sexual Orientation Not on file documented as of this encounter Last Filed Vital Signs Vital Sign Reading Time Taken Comments Blood Pressure 127/74 10/19/2024 11:32 AM EDT Pulse 78 10/19/2024 11:32 AM EDT Temperature - - Respiratory Rate - - Oxygen Saturation 95% 10/19/2024 11:32 AM EDT Inhaled Oxygen Concentration - - Weight 90.7 kg (200 lb) 10/19/2024 11:32 AM EDT Height 167.6 cm (5' 6 ) 10/19/2024 11:32 AM EDT Body Mass Index 32.28 10/19/2024 11:32 AM EDT documented in this encounter Progress Notes * Gaurav Warren CNP - 10/19/2024 11:20 AM EDT Images from the original note were not included. SUBJECTIVE Reason for Visit: Bertha Duckworth is a 74 y.o. year old female patient being seen for 6-month follow-up visit. HPI: Bertha Duckworth is a 74 y.o. year old female [...] foot and ankle pain, along with dyspnea onexertion that limits her to walking approximately 50 [...] Patient denies any lower extremity edema, orthopnea, orproximal nocturnal dyspnea. No near- syncope or syncope. No dizziness or lightheadedness. Patient [...] the following laboratory results above. These findings havebeen analyzed in the context of the patient's clinical presentation. Cardiovascular Diagnostic Studies: TTE 11/28/2023: 12 Lead ECG: No results found for this or any previous visit (from the past 4464 hours). Twelve-lead ECG 08/26/2024: I have personally reviewed and analyzed all available cardiac diagnostic tests and imaging reports.Findings have been analyzed in the context of the patient's clinical status. Assessment and Plan #Chest Pain #AKHTAR Patient reports intermittent chest discomfort that is mild, without identifiable triggers, and occasionally radiates to the neck and jaw. She has a significant smoking history (1 pack per day; lifetime smoker since age 23) and a strong family history of premature cardiovascular disease (mother withCABG; brother and sister with cardiac stents), making [...] 4 weeks No follow-ups on file. Gaurav Warren, [facility] Cardiovascular Medicine [...] Other myalgias Penicillins Hives, Itching and Rash documented in this encounter Plan of Treatment Upcoming Encounters Date Type Department Care Team (Late st Contact Info) Description 11/13/2024 11:20 AM EDT Office Visit [facility] [address] [place] [address] Gaurav Warren CNP [address] [place] [address] Scheduled Orders Name Type Priority Associated Diagnoses Orde r Schedule Lipid panel Lab Routine Mixed hyperlipidemia Expected: 10/19/2024 (Approximate), Expires: 10/19/2025 documented as of this encounter Procedures Procedure Name Priority Date/Time Associated Diagnosis Comments ECG 12 LEAD UNIT PERFORMED Routine 10/19/2024 11:41 AM EDT Other chest pain documented in this encounter Results * ECG 12 lead unit performed (10/19/2024 11:41 AM EDT) Gaurav Warren CNP ECG ORDERABLES Final Result documented in this encounter Visit Diagnoses Diagnosis Other chest pain- Primary AKHTAR (dyspnea on exertion) Other dyspnea and respiratory abnormality RBBB Abnormal EKG Nonspecific abnormal electrocardiogram (ECG) (EKG) Mixed hyperlipidemia Tobacco dependence Tobacco use disorder documented in this encounter Care Teams Family Worker Relationship Specialty Start Date End Date Moustapha De Leon MD [address] [place] [address] PCP - General Family Medicine 06/02/24 documented as of this encounter
--- OUTSIDE RECORDS SUMMARY | 2024-10-20 10:25 | XMS_ITS | Clinical Summary ---
Author Organization [facility] Address [address] [place] [address] Care Team Providers Care Career And Guidance Counselor Name Role Phone Moustapha De Leon MD Primary Care Provider [phone] Allergies Active Allergy Reactions Criticality Noted Date Comments Atorvastatin Other 12/04/2023 myalgias Penicillins Hives,Itching,Rash Low 12/18/2012 Medications levothyroxine (Synthroid, Levoxyl) 75 mcg tablet Take 75 mcg by mouth. 11/21/2023 Active rosuvastatin (Crestor) 40 mg tablet Take 40 mg by mouth in the morning. 11/19/2023 Active aspirin 81 mg EC tablet Take 81 mg by mouth in the morning. Active alpha lipoic acid 200 mg capsule Take 200 mg by mouth twice a day. 10/14/2024 Active cholecalciferol (D3-5) 5,000 Units tablet Take 125 mcg by mouth in the morning. 08/19/2024 Active Active Problems Problem Noted Date Diagnosed Date Acquired spondylolisthesis of lumbosacral region 09/29/2024 Spondylosis of cervical spine 09/29/2024 Lumbar back pain 09/24/2024 Neck pain 09/24/2024 Other chest pain 09/24/2024 Numbness and tingling of both feet 08/12/2024 Other fatigue 08/12/2024 Age-related osteoporosis wit hout current pathological fracture 06/07/2024 Overview (10/19/2024): DEXA scan 04/03/24: : -2.7 spine, hip -3.1 Vitamin D deficiency 06/07/2024 Blepharitis of upper and lower eyelids of both e yes 05/25/2024 Acute non-recurrent maxillary sinusitis 04/13/20 Acute URI 04/13/2024 Tobacco dependence 04/13/2024 Positive colorectal cancer screening using Colog uard test 03/26/2024 Encounter for osteoporosis s creening in asymptomatic postmenopausal patient 02/27/2024 Impacted cerumen of left ear 12/19/2023 Prediabetes 12/19/2023 Hyperlipidemia 11/18/2023 Overview (12/04/2023): Last Assessment & Plan: Echo and Carotid duplex ordered. Lipid panel and CMP ordered. Continue Crestor 20mg as directed Hypertriglyceridemia 11/18/2023 Overview (12/04/2023): Last Assessment & Plan: Echo and Carotid duplex ordered. Lipid panel and CMP ordered. Continue Crestor 20mg as directed Hypothyroid 11/18/2023 Bilateral posterior capsular opacification 11/07 Dry eyes 11/08/2023 Epiretinal membrane (ERM) of both eyes Hollenhorst plaque, right eye 11/08/2023 Cystitis 09/03/2023 Nasal congestion 05/23/2021 Smoking 06/13/2020 Hoarseness 03/24/2020 Lesion of vocal cord 03/24/2020 Personal history of malignant neoplasm of breast 12/18/2013 Breast cancer 12/05/2012 Encounters Date Type Department Care Team Description 10/19/2024 11:20 AM EDT Office Visit [facility] [address] [place] [address] Gaurav Warren, BUTCH Other chest pain (Primary Dx); AKHTAR (dyspnea on exertion); RBBB; Abnormal EKG; Mixed hyperlipidemia; Tobacco dependence 10/19/2024 Orders Only [facility] [address] [place] [address] Jes Cisneros MA Chest pain, unspecified type (Primary Dx) from Last 3 Months Family History Medical History Relation Name Comments Coronary artery disease Brother Coronary artery disease Mother Coronary artery disease Sister Relation Name Status Comments Brother Mother Sister Social History Tobacco Use Types Packs/Day Years Used Date Smoking Tobacco: Every Day Cigarettes Smokeless Tobacco: Never Tobacco Cessation:Ready to Q uit: Not Asked; Counseling Given: Not Answered Alcohol Use Standard Drinks/Week Comments Yes 0 (1 standard drink = 0.6 oz pur e alcohol) once a week Comments Unknown Sex and Gender Information Value Date Recorded Sex Assigned at Not on file Legal Sex Female 1:39 PM EDT Gender Identity Not on file Sexual Orientation Not on file Last Filed Vital Signs Vital Sign Reading [...] Mass Index 32.28 10/19/2024 11:32 AM EDT Plan of Treatment Upcoming Encounters Date Type Department Care Team (Late st Contact Info) Description 11/13/2024 11:20 AM EDT Office Visit [facility] [address] [place] [address] Gaurav Warren, WAREHOUSE TRAINER [address] [place] [address] Health Maintenance Due Date Last Done Comments CT Colonography 1951 Colonoscopy 1950 Diabetes: Hemoglobin A1C 1950 FIT-DNA 1950 FOBT 1950 Medicare Annual Wellness (AWV) 1950 Sigmoidoscopy 1951 Depression Screening 1963 Adult Tetanus 1973 Zoster Vaccines (1 of 2) 2001 Fall Risk Screening 2016 COVID-19 Vaccine ( season) 2023 03/23/2021, 07/05/2020, 06/14/2020 Influenza Vaccine (#1) 2024 , 02/27/2024, 02/13/2023, Additional history exists Colorectal Cancer Screening 03/18/2025 FIT 03/18/2025 03/18/2024 Pneumococcal Vaccine: 50+ Years Completed 01/21/2019, 03/14/2017 HIB Vaccines Aged Out No longer eligi ble based on patient's age to complete this topic HPV Vaccines Aged Out No longer eligi ble based on patient's age to complete this topic IPV Vaccines Aged Out No longer eligi ble based on patient's age to complete this topic Meningococcal B Vaccine Aged Out No l onger eligible based on patient's age to complete this topic Meningococcal Vaccine Aged Out No fei liban eligible based on patient's age to complete this topic Rotavirus Vaccines Aged Out No longer eligible based on patient's age to complete this topic Procedures Procedure Name Priority Date/Time Associated Diagnosis Comments ECG 12 LEAD UNIT PERFORMED Routine 10/19/2024 11:41 AM EDT Other chest pain from Last 3 Months Results * ECG 12 lead unit performed (10/19/2024 11:41 AM EDT) Gaurav Warren CNP ECG ORDERABLES Final Result from Last 3 Months Insurance [employer] Care Teams Career And Guidance Counselor Relationship Specialty Start Date End Date Moustapha De Leon MD [address] [place] [address] PCP - General Family Medicine 06/02/24
--- OUTSIDE RECORDS SUMMARY | 2024-10-20 10:25 | XMS_ITS | Encounter Summary ---
Author Organization [facility] Address [address] [place] [address] Care Team Providers Care Press Hand Name Role Phone Stephanie Peters OD Unavailable Moustapha De Leon MD Primary Care Provider [phone] Delmi Love RESTAURANT AREA MANAGER Unavailable [phone] Reason for Visit * Reason Onset Date Comments Lab Orders 10/07/2024 Encounter Details Date Type Department Care Team (Late st Contact Info) Description 10/07/2024 Telephone [facility] [address] [place] [address] Delmi Love, RESTAURANT AREA MANAGER [address] [place] [address] Lab Orders Social History Tobacco Use Types Packs/Day Years [...] week 11/12/2023 How often do you attend congregational or protestant serv ices? Patient declined 11/12/2023 Do you belong to any clubs o r organizations such as congregational groups, unions, fraternal or athletic groups, or [...] Recorded Patient Health Questionnaire-2 Score 0 02/27/2024 [facility] - Occupational Stress [...] any time in the past 12 m [facility], were you homeless or living in a snf (including now)? No 11/12/2023 Comments No Sex and Gender Information Value Date Recorded Sex Assigned at Not on file Legal Sex Female 7:30 PM EDT Gender Identity Not on file Sexual Orientation Not on file documented as of this encounter Miscellaneous Notes * Telephone Encounter - Debbi Imtiaz - 10/07/2024 1:28 PM EDT Patient called asking for both of her MRI orders to be faxed to [facility] imaging in [place] instead. I did fax those over today. JN documented in this encounter Plan of Treatment Upcoming Encounters Date Type Department Care Team (Late st Contact Info) Description 11/09/2024 3:00 PM EDT Office Visit [facility] [address] [place] [address] Delmi Love NP [address] [place] [place] [address] 01/20/2025 1:30 PM EDT Office Visit [facility] [address] [place] [address] Panda Campos DO [address] [place] [address] 03/23/2025 1:35 PM EST Office Visit [facility] [address] [place] [address] Shira Tan MD [address] [place] [address] 10/20/2025 11:00 AM EDT Office Visit [facility] [address] [place] [address] Cliff Hong PA [address] [facility] [address] [place] [address] documented as of this encounter Visit Diagnoses Not on filedocumented in this encounter Additional Health Concerns Assessment Noted Time PHQ-9 Depression Total Score: 0 02/27/20 11:00 AM EST documented as of this encounter Care Teams Press Hand Relationship Specialty Start Date End Date Moustapha De Leon MD [address] [place] [address] PCP - General Family Medicine 11/08/23 Stephanie Peters OD [address] [facility] [place] [address] Referring Physician Optometry 11/08/23 Delmi Love NP [address] [place] [address] Nurse Practitioner Family Medicine 07/15/24 documented as of this encounter
--- OUTSIDE RECORDS SUMMARY | 2024-10-20 10:25 | XMS_ITS | Encounter Summary ---
Author Organization [facility] Address [address] [place] [address] Care Team Providers Care Clinical Marketing Manager Name Role Phone Stephanie Peters OD Unavailable Moustapha De Leon MD Primary Care Provider [phone] Delmi Love ENFORCEMENT MANAGER Unavailable [phone] Encounter Details Date Type Department Care Team (Late st Contact Info) Description 10/12/2024 Abstract [facility] [address] [place] [address] Delmi Love NP [address] [place] [address] Social History Tobacco Use Types Packs/Day Years [...] week 11/12/2023 How often do you attend taoist or confucianism serv ices? Patient declined 11/12/2023 Do you belong to any clubs o r organizations such as taoist groups, unions, fraternal or athletic groups, or [...] Recorded Patient Health Questionnaire-2 Score 0 02/27/2024 [facility] Answer Date Recorded [...] any time in the past 12 m [facility], were you homeless or living in a prison (including now)? No 11/12/2023 Comments No Sex and Gender Information Value Date Recorded Sex Assigned at Not on file Legal Sex Female 7:30 PM EDT Gender Identity Not on file Sexual Orientation Not on file documented as of this encounter Plan of Treatment Upcoming Encounters Date Type Department Care Team (Late st Contact Info) Description 11/09/2024 3:00 PM EDT Office Visit [facility] [address] [place] [address] Delmi Love NP [address] [place] [address] 01/20/2025 1:30 PM EDT Office Visit [facility] [address] [place] [address] Panda Campos DO [address] [place] [address] 03/23/2025 1:35 PM EST Office Visit [facility] [address] [place] [address] Shira Tan MD [address] [place] [address] 10/20/2025 11:00 AM EDT Office Visit [facility] [address] [place] [address] Cliff Hong, PA [address] [facility] [address] [place] [address] documented as of this encounter Visit Diagnoses Not on filedocumented in this encounter Additional Health Concerns Assessment Noted Time PHQ-9 Depression Total Score: 0 02/27/20 24 11:00 AM EST documented as of this encounter Care Teams Clinical Marketing Manager Relationship Specialty Start Date End Date Moustapha De Leon MD [address] [place] [address] PCP - General Family Medicine 11/08/23 Stephanie Peters OD [facility] [place] [address] Referring Physician Optometry 11/08/23 Delmi Love NP [address] [place] [address] Nurse Practitioner Family Medicine 07/15/24 documented as of this encounter
--- OUTSIDE RECORDS SUMMARY | 2024-10-20 10:25 | XMS_ITS | Encounter Summary ---
Author Organization [facility] Address [address] [place] [address] Care Team Providers Care Knitter Helper Name Role Phone Moustapha De Leon MD Primary Care Provider [phone] Encounter Details Date Type Department Care Team (Late st Contact Info) Description 10/19/2024 Orders Only [facility] [address] [place] [address] Jes Cisneros MA Chest pain, unspecified type (Primary Dx) Social History Tobacco Use Types Packs/Day Years [...] Description 11/13/2024 11:20 AM EDT Office Visit [facility] [address] [place] [address] Gaurav Warren CNP [address] [place] [address] Scheduled Orders Name Type Priority Associated Diagnoses Orde r Schedule Lexiscan Stress Myocardial Perfusion Imaging Cardiac Services Routine Chest pain, unspecified type Expected: 10/19/2024 (Approximate), Expires: 10/19/2026 documented as of this encounter Visit Diagnoses Diagnosis Chest pain, unspecified type- Primary documented in this encounter Care Teams Knitter Helper Relationship Specialty Start Date End Date Moustapha De Leon MD [address] [place] [address] PCP - General Family Medicine 06/02/24 documented as of this encounter
--- OUTSIDE RECORDS SUMMARY | 2024-10-20 10:25 | XMS_ITS | Encounter Summary ---
Author Organization [facility] Address [address] [place] [address] Care Team Providers Care Facilities Technician Name Role Phone Stephanie Peters OD Unavailable Moustapha De Leon MD Primary Care Provider [phone] Lynsey Rinaldi MECHANICAL APPRENTICE Unavailable Delmi Love MECHANICAL APPRENTICE Unavailable [phone] Encounter Details Date Type Department Care Team (Late st Contact Info) Description 04/03/2024 Clinisync Result Encounter [facility] External Department Unsolicited Lynsey Rinaldi NP Social History Tobacco Use Types Packs/Day Years [...] week 11/12/2023 How often do you attend faith or zoroastrian serv ices? Patient declined 11/12/2023 Do you belong to any clubs o r organizations such as faith groups, unions, fraternal or athletic groups, or [...] Recorded Patient Health Questionnaire-2 Score 0 02/27/2024 [facility] - Occupational Stress [...] any time in the past 12 m [facility], were you homeless or living in a intermediate (including now)? No 11/12/2023 Comments No Sex and Gender Information Value Date Recorded Sex Assigned at Not on file Legal Sex Female 7:30 PM EDT Gender Identity Not on file Sexual Orientation Not on file documented as of this encounter Plan of Treatment Upcoming Encounters Date Type Department Care Team (Late st Contact Info) Description 11/09/2024 3:00 PM EDT Office Visit [facility] [address] [place] [address] Delmi Love NP [address] [place] [address] 01/20/2025 1:30 PM EDT Office Visit [facility] [address] [place] [address] Panda Campos DO [address] [place], [place] [address] 03/23/2025 1:35 PM EST Office Visit [facility] [address] [place] [address] Shira Tan MD [address] [place] [address] 10/20/2025 11:00 AM EDT Office Visit [facility] [address] [place] [address] Cliff Hong PA [address] [facility] [address] [place] [address] [phone] (work) documented as of this encounter Procedures Procedure Name Priority Date/Time Associated Diagnosis Comments XR DEXA AXIAL SKELETON 04/03/2024 11:54 AM EST documented in this encounter Results * XR DEXA AXIAL SKELETON (04/03/2024 11:54 AM EST) Anatomical Region Laterality Modality Other 04/03/2024 11:5 4 AM EST Narrative 04/03/2024 2:46 [place] [address] XRay Report Signed Patient: BERTHA GALARZA MR#: [id number] : 1950 Acct:[id number] Age/Sex: 73 / F ADM Date: 04/02/24 Loc: MAMMO Attending Dr: LYNSEY RINALDI Ordering Physician: LYNSEY RINALDI Date of Service: 04/02/24 Procedure(s): XR DEXA axial skeleton Accession Number(s): [id number] cc: LYNSEY RINALDI [place] [address] Patient Name: BERTHA GALARZA MRN: [id number] date: 1950 Sex: F Assigned Patient Location: MAMMO Current Patient Location: Accession/Order Number: [id number] Exam Date: 04/02/2024 15:05 Report Date: 04/03/2024 11:54 At the request of: LYNSEY RINALDI Procedure: XR DEXA axial skeleton EXAMINATION: XR DEXA axial skeleton, 04/02/2024 3:05 PM EST HISTORY: Osteoporosis Screening COMPARISON: None. TECHNIQUE: Dual-energy X-ray absorptiometry (DEXA) bone density study performed for the axial skeleton. FINDINGS: Bone mineral density AP spine L2-L4 measures 0.878 g percent meters per. T score -2.7. Osteoporosis. Lowest bone mineral density left femoral trochanter measuring 0.500 g percent meters per. T score -3.1. Osteoporosis XR/XR DEXA axial skeleton IMPRESSION: Osteoporosis. High fracture risk 10 year fracture risk not reported because T score is below -2.5 Pharmacologic treatment recommendations * No uniform recommendation applies to all patients. Management plans must be individualized. * Consider initiating pharmacologic treatment in postmenopausal women and men >= 50 years of age who have the following: Primary fracture prevention: * T-score <= - 2.5 at the femoral neck, total hip, lumbar spine, 33% radius (some uncertainty with existing data) by DXA. * Low bone mass (osteopenia: T-score between - 1.0 and - 2.5) at the femoral neck or total hip by DXA with a 10-year hip fracture risk >= 3% or a 10-year major osteoporosis-related fracture risk >= 20% (i.e., clinical vertebral, hip, forearm, or proximal humerus) based on the US-adapted FRAXregistered model. Secondary fracture prevention: * Fracture of the hip or vertebra regardless of BMD [4, 5]. * Fracture of proximal humerus, pelvis, or distal forearm in persons with low bone mass (osteopenia: T-score between - 1.0 and - 2.5). The decision to treat should be individualized in persons with a fracture of the proximal humerus, pelvis, or distal forearm who do not have osteopenia or low BMD [12, 13]. Dorinda MS, Jett SL, Tia KL, Genevieve EM, Christos KG, AJ, Gisela ES. The clinician's guide to prevention and treatment of osteoporosis. Osteoporos Int. 2021;33(10):5040-8064. doi: 10.1007/n20234-269-50190-v. Epub 2021Aug 10. Erratum in: Osteoporos Int. 2021Nov 09;: PMID: 83649603; PMCID: [id number]. Electronically authenticated by: KARI DIOP Date: 04/03/2024 11:54 Dictated By: Kari Diop M.D. Signed By: 04/03/24 1446 DD/ 1154 TD/TT: Skeiner: Procedure Note Radiology, Radiologist, MD - 04/03/2024 [place] [address] XRay Report Signed Patient: BERTHA GALARZA AMR#: [id number] : 1950cct:[id number] Age/Sex: 73 / FADM Date: 04/02/24 Loc: MAMMO Attending Dr: LYNSEY RINALDI Ordering Physician: LYNSEY RINALDI Date of Service: 04/02/24 Procedure(s): XR DEXA axial skeleton Accession Number(s): [id number] cc: LYNSEY RINALDI [place] [address] Patient Name: BERTHA GALARZA MRN: [id number] date: 1950 Sex: F Assigned Patient [facility]: [facility] Current Patient Location: Accession/Order Number: [id number] Exam Date: 04/02/2024 15:05 Report Date: 04/03/2024 11:54 At the request of: LYNSEY RINALDI Procedure: XR DEXA axial skeleton EXAMINATION: XR DEXA axial skeleton, 04/02/2024 3:05 PM EST HISTORY: Osteoporosis Screening COMPARISON: None. TECHNIQUE: Dual-energy X-ray absorptiometry (DEXA) bone density study performed for the axial skeleton. FINDINGS: Bone mineral density AP spine L2-L4 measures 0.878 g percent meters per. T score -2.7. Osteoporosis. Lowest bone mineral density left femoral trochanter measuring 0.500 gpercent meters per. T score -3.1. Osteoporosis XR/XR DEXA axial skeleton IMPRESSION: Osteoporosis. High fracture risk 10 year fracture risk not reported because T score is below -2.5 Pharmacologic treatment recommendations * No uniform recommendation applies to all patients. Management plans mustbe individualized. * Consider initiating pharmacologic treatment in postmenopausal women andmen >= 50 years of age who have the following: Primary fracture prevention: * T-score <= - 2.5 at the femoral neck, total hip, lumbar spine, 33%radius (some uncertainty with existing data) by DXA. * Low bone mass (osteopenia: T-score between - 1.0 and - 2.5) at thefemoral neck or total hip by DXA with a 10-year hip fracture risk >= 3% or t51-[id number] major osteoporosis-related fracture risk >= 20% (i.e., clinical vertebral, hip, forearm, or proximal humerus) based on the US-adapted FRAXregisteredmodel. Secondary fracture prevention: * Fracture of the hip or vertebra regardless of BMD [4, 5]. * Fracture of proximal humerus, pelvis, or distal forearm in persons withlow bone mass (osteopenia: T-score between - 1.0 and - 2.5). The decision totreat should be individualized in persons with a fracture of the proximalhumerus, pelvis, or distal forearm who do not have osteopenia or low BMD [12, 13]. Dorinda MS, Jett SL, Tia KL, Genevieve EM, Christos KG, AJ,Gisela ES. The clinician's guide to prevention and treatment of osteoporosis.Osteoporos Int. 2021;33(10):5825-9222. doi: 10.1007/k78001-555-07598-t. Ep. Erratum in: Osteoporos Int. 2021Nov 09;: PMID: [id number]; PMCID: [id number]. Electronically authenticated by: KARI DIOP Date: 04/03/2024 11:54 Dictated By: Kari Diop M.D. Signed By:04/03/24 1446 DD/ 1154 TD/TT: Skeiner: Lynsey Rinaldi MECHANICAL APPRENTICE [facility] Final Result documented in this encounter Visit Diagnoses Not on filedocumented in this encounter Additional Health Concerns Assessment Noted Time PHQ-9 Depression Total Score: 0 02/27/20 24 11:00 AM EST documented as of this encounter Care Teams Facilities Technician Relationship Specialty Start Date End Date Moustapha De Leon MD [address] [place] [address] PCP - General Family Medicine 11/08/23 Stephanie Peters OD [address] [place] [address] Referring Physician Optometry 11/08/23 Lynsey Rinaldi NP [address] [place] [address] Nurse Practitioner Family Medicine 11/13/23 07/14/24 Delmi Love NP [address] [place] [address] Nurse Practitioner Family Medicine 07/15/24 documented as of this encounter
--- OUTSIDE RECORDS SUMMARY | 2024-10-20 10:26 | XMS_ITS | Encounter Summary ---
Author Organization [facility] Address [id number] [address] [place] [address] Care Team Providers Care Flight Teacher Name Role Phone Jose David Morton DO Primary Care Provider Encounter Details Date Type Department Care Team (Late Contact Info) Description 08/20/2024 Orders Only [facility] [address] [place] [address] External, Scanning Provider Social History Tobacco Use Types Packs/Day Years Used Date Smoking Tobacco: Every Day Cigarettes 1 40 Smokeless Tobacco: Never Alcohol Use Standard Drinks/Week Comments Yes 0 (1 standard drink = 0.6 oz pur e alcohol) occassional PHQ-2 Answer Date Recorded Total Score 0 05/23/2021 Childcare Answer Date Recorded Childcare Unknown 03/14/2020 Employment Answer Date Recorded Employment Unknown 03/14/2020 Purpose - Life Answer Date Recorded Purpose and direction in life Unknown Comments No Sex and Gender Information Value Date Recorded Sex Assigned at Female 06/11/2020 10:33 AM EST Legal Sex Female 12:04 PM EDT Gender Identity Female 06/11/2020 10:33 AM EST Sexual Orientation Not on file documented as of this encounter Plan of Treatment Upcoming Encounters Date Type Department Care Team (Late Contact Info) Description 02/16/2025 1:10 PM EST Office Visit [facility] [address] [place] [address] Mike Jules MD [address] [place] [place], [place] [phone] documented as of this encounter Procedures Procedure Name Priority Date/Time Associated Diagnosis Comments ECG 12-LEAD Routine 11/19/2023 10:12 AM EDT documented in this encounter Results * ECG 12 lead (11/19/2023 10:12 AM EDT) us Scanning Provider External ECG ORDERABLES Final Result Performing Organization Address City/State/[facility] Co de Phone Number MANUALLY TRANSCRIBED RESULTS documented in this encounter Visit Diagnoses Not on filedocumented in this encounter Additional Health Concerns Assessment Noted Time PHQ-9 Depression Total Score: 0 05/23/19 22 10:51 AM EST documented as of this encounter Care Teams Flight Teacher Relationship Specialty Start Date End Date Jose David Morton DO PCP - General Family Medicine 04/01/20 documented as of this encounter
--- OUTSIDE RECORDS SUMMARY | 2024-10-20 10:26 | XMS_ITS | Encounter Summary ---
Author Organization [facility] [employer] [facility] Address [id number] [address] [place] [address] Care Team Providers Care Greige Goods Examiner Name Role Phone Jose David Morton DO Primary Care Provider [phone] Encounter Details Date Type Department Care Team (Late st Contact Info) Description 05/13/2020 Documentation [facility] [address] [address] Jessica Penn, PA-C [address] [facility] [address] [place] [address] Social History Tobacco Use Types Packs/Day Years Used Date Smoking Tobacco: Every Day Smokeless Tobacco: Never Alcohol Use Standard Drinks/Week Comments Yes 0 (1 standard drink = 0.6 oz pur e alcohol) PHQ-2 Answer Date Recorded PHQ-2 Score 0 05/11/2020 Childcare Answer Date Recorded Childcare Unknown 03/14/2020 Employment Answer Date Recorded Employment Unknown 03/14/2020 Purpose - Life Answer Date Recorded Purpose and direction in life Unknown Comments Unknown Sex and Gender Information Value Date Recorded Sex Assigned at Female 06/11/2020 10:33 AM EST Legal Sex Female 12:04 PM EDT Gender Identity Female 06/11/2020 10:33 AM EST Sexual Orientation Not on file COVID-19 Exposure Response Date Recorded In the last month, have you been in contact with someone who was confirmed or suspected to have Coronavirus / COVID-19? No / Unsure 05/16/2020 9:51 AM EST documented as of this encounter Plan of Treatment Upcoming Encounters Date Type Department Care Team (Late st Contact Info) Description 02/16/2025 1:10 PM EST Office Visit [facility] [address] [place] [address] Mike Jules MD [address] [place] [address] documented as of this encounter Visit Diagnoses Not on filedocumented in this encounter Additional Health Concerns Assessment Noted Time PHQ-9 Depression Total Score: 0 05/11/19 21 11:34 AM EST documented as of this encounter Care Teams Greige Goods Examiner Relationship Specialty Start Date End Date Jose David Morton DO PCP - General Family Medicine 04/01/20 documented as of this encounter
--- OUTSIDE RECORDS SUMMARY | 2024-10-20 10:26 | XMS_ITS | Encounter Summary ---
Author Organization [facility] Address [address] [place] [address] Care Team Providers Care Boat Dock Operator Name Role Phone Stephanie Peters OD Unavailable Moustapha De Leon MD Primary Care Provider [phone] Delmi Love NP Unavailable [phone] Encounter Details Date Type Department Care Team (Latest Contact Info) Description 10/13/2024 Travel Social History Tobacco Use Types Packs/Day Years [...] week 11/12/2023 How often do you attend rastafari or yarsani serv ices? Patient declined 11/12/2023 Do you belong to any clubs o r organizations such as rastafari groups, unions, fraternal or athletic groups, or [...] Recorded Patient Health Questionnaire-2 Score 0 02/27/2024 [facility] ional [facility] - [...] any time in the past 12 m [facility], were you homeless or living in a mcc (including now)? No 11/12/2023 Comments No Sex [...] Office Visit [facility] [address] [place] [address] Delmi Love NP [address] [place] [address] 01/20/2025 1:30 PM EDT Office Visit [facility] [address] [place] [address] Panda Campos DO [address] [place], [place] [address] 03/23/2025 1:35 PM EST Office Visit [facility] [address] [place] [address] Shira Tan MD [address] [place] [address] 10/20/2025 11:00 AM EDT Office Visit [facility] [address] [place] [address] Cliff Hong PA [address] [facility] [address] [place] [address] documented as of this encounter Visit Diagnoses Not on filedocumented in this encounter Additional Health Concerns Assessment Noted Time PHQ-9 Depression Total Score: 0 02/27/20 24 11:00 AM EST documented as of this encounter Care Teams Boat Dock Operator Relationship Specialty Start Date End Date Moustapha De Leon MD [address] [place] [address] PCP - General Family Medicine 11/08/23 Stephanie Peters OD [address] [place] [address] Referring Physician Optometry 11/08/23 Delmi Love NP [address] [place] [address] Nurse Practitioner Family Medicine 07/15/24 documented as of this encounter
--- OUTSIDE RECORDS SUMMARY | 2024-10-20 10:26 | XMS_ITS | Encounter Summary ---
Author Organization [employer] tem Address [facility] [id number] [address] [place] [address] Care Team Providers Care Pulp Drier Name Role Phone Jose David Morton DO Primary Care Provider [phone] Encounter Details Date Type Department Care Team (Late Contact Info) Description 08/27/2024 Orders Only [facility] [address] [place] [address] Mike Jules MD [address] [place] [address] Lower extremity edema Social History Tobacco Use Types Packs/Day Years [...] 1:10 PM EST Office Visit [facility] [address] [place] [address] Mike Jules MD [address] [place] [address] documented as of this encounter Procedures Procedure Name Priority Date/Time Associated Diagnosis Comments VASC VENOUS DUPLEX INSUFFICIENCY LOWER BILATERAL Routine 08/25/2024 Lower extremity edema documented in this encounter Results * Vas venous duplex insufficiency lwr bi (08/25/2024) Anatomical Region Laterality Modality Vascular Bilateral Ultrasound us Mike Jules MD CV VASCULAR ORDERABLES Final R esult documented in this encounter Visit Diagnoses Diagnosis Lower extremity edema Edema documented in this encounter Additional Health Concerns Assessment Noted Time PHQ-9 Depression Total Score: 0 05/23/19 22 10:51 AM EST documented as of this encounter Care Teams Pulp Drier Relationship Specialty Start Date End Date Jose David Morton DO PCP - General Family Medicine 04/01/20 documented as of this encounter
--- OUTSIDE RECORDS SUMMARY | 2024-10-20 10:26 | XMS_ITS | Encounter Summary ---
Author Organization [facility] Address [address] [place] [address] Care Team Providers Care Director Independent Name Role Phone Stephanie Peters OD Unavailable Moustapha De Leon MD Primary Care Provider [phone] Delmi Love BORDERER Unavailable [phone] Encounter Details Date Type Department Care Team (Late st Contact Info) Description 10/20/2024 Telephone [facility] [address] [place] [address] Delmi Love NP [address] [place] [address] Social History Tobacco Use Types Packs/Day Years [...] week 11/12/2023 How often do you attend scientology or buddhism serv ices? Patient declined 11/12/2023 Do you belong to any clubs o r organizations such as scientology groups, unions, fraternal or athletic groups, or [...] Recorded Patient Health Questionnaire-2 Score 0 02/27/2024 [facility] Answer Date Recorded [...] any time in the past 12 m [facility], were you homeless or living in a residential (including now)? No 11/12/2023 Comments No Sex and Gender Information Value Date Recorded Sex Assigned at Not on file Legal Sex Female 7:30 PM EDT Gender Identity Not on file Sexual Orientation Not on file documented as of this encounter Miscellaneous Notes * Telephone Encounter - Delmi Love NP - 10/20/2024 9:33 AM EDT Please let pt know that her insurance denied her MRI lumbar spine, she will need to do PT first, does she want to go that route? [place] documented in this encounter Plan of Treatment Upcoming Encounters Date Type Department Care Team (Late st Contact Info) Description 11/09/2024 3:00 PM EDT Office Visit [facility] [address] [place] [address] Delmi Love NP [address] [place] [address] 01/20/2025 1:30 PM EDT Office Visit [facility] [address] [place] [address] Panda Campos DO [address] [place] [address] 03/23/2025 1:35 PM EST Office Visit [facility] [address] [place] [address] Shira Tan MD [address] [facility] [address] [place] [address] 10/20/2025 11:00 AM EDT Office Visit [facility] [address] [place] [address] Cliff Hong PA [address] [facility] [address] [place], [place] [id number] documented as of this encounter Visit Diagnoses Not on filedocumented in this encounter Additional Health Concerns Assessment Noted Time PHQ-9 Depression Total Score: 0 02/27/20 11:00 AM EST documented as of this encounter Care Teams Director Independent Relationship Specialty Start Date End Date Moustapha De Leon MD [address] [place] [address] PCP - General Family Medicine 11/08/23 Stephanie Peters OD [address] [facility] [place] [address] Referring Physician Optometry 11/08/23 Delmi Love NP [address] [place] [address] Nurse Practitioner Family Medicine 07/15/24 documented as of this encounter
--- OUTSIDE RECORDS SUMMARY | 2024-10-20 10:26 | XMS_ITS | Encounter Summary ---
Author Organization [facility] Address [address] [place] [address] Care Team Providers Care Insurance Office Supervisor Name Role Phone Stephanie Peters OD Unavailable Moustapha De Leon MD Primary Care Provider [phone] Lynsey Rinaldi WINE MANAGER Unavailable Delmi Love WINE MANAGER Unavailable [phone] Encounter Details Date Type Department Care Team (Late st Contact Info) Description 04/02/2024 Clinisync Result Encounter [facility] External Department Unsolicited [...] week 11/12/2023 How often do you attend mandaeism or buddhist serv ices? Patient declined 11/12/2023 Do you belong to any clubs o r organizations such as mandaeism groups, unions, fraternal or athletic groups, or [...] Recorded Patient Health Questionnaire-2 Score 0 02/27/2024 [facility] - [...] were you homeless or living in a group home (including now)? No 11/12/2023 Comments No Sex [...] Office Visit [facility] [address] [place] [address] Delmi Love NP [address] [place] [address] 01/20/2025 1:30 PM EDT Office Visit [facility] [address] [place] [address] Panda Campos DO [address] [place], [place] [address] 03/23/2025 1:35 PM EST Office Visit [facility] [address] [place] [address] Shria Tan MD [address] [place] [address] 10/20/2025 11:00 AM EDT Office Visit [facility] [address] [place] [address] Cliff Hong PA [address] [facility] 150 [place] [address] [phone] (work) documented as of this encounter Procedures Procedure Name Priority Date/Time Associated Diagnosis Comments MM TOMOSYNTHESIS SCREENING BI 04/02/2024 3:38 PM EST documented in this encounter Results * MM TOMOSYNTHESIS SCREENING BI (04/02/2024 3:38 PM EST) Anatomical Region Laterality Modality Other 04/02/2024 3:38 PM EST Narrative 04/02/2024 3:39 [place] [address] Mammography Report Signed Patient: BERTHA GALARZA MR#: [id number] : 1950 Acct:[id number] Age/Sex: 73 / F ADM Date: 04/02/24 Loc: MAMMO Attending Dr: LYNSEY RINALDI Ordering Physician: LYNSEY RINALDI Results: Date of Service: 04/02/24 Follow Up: Procedure(s): MM tomosynthesis screening BI Accession Number(s): [id number] cc: LYNSEY RINALDI Patient Name: BERTHA GALARZA MR#: [id number] : 1950 Exam Date: 04/02/2024 Ordering Doctor: LYNSEY RINALDI RADIOLOGY REPORT PROCEDURE: MM TOMOSYNTHESIS SCREENING BI COMPARISON: MG MAMM SCREEN 3D RABIA CAD, 03/29/2022. MM TOMOSYNTHESIS SCREENING BI, 04/01/2023. INDICATIONS: Screening Calculator Name NCI Breast Cancer Risk Assessment Tool 5 Year Breast Cancer Risk n/a% Lifetime Breast Cancer Risk n/a% Personal Breast Cancer Yes, Left breast cancer 2006 Personal Ovarian Cancer No Treatments Lumpectomy, radiation, and chemotherapy Family Cancers Father with lung cancer at age 51; Sister with colon cancer at age 54. LOCATION: [facility] BREAST COMPOSITION: There are scattered areas of fibroglandular density. FINDINGS: DIAGNOSTIC CATEGORY 2--BENIGN FINDING. NO CHANGE FROM COMPARISON. Scattered benign-appearing calcifications are present. Scattered benign-appearing lymph nodes are present. RIGHT BREAST: No significant suspicious finding. LEFT BREAST: No significant suspicious finding. Asymmetrically small with coarse calcification lower inner quadrant, unchanged RECOMMENDATIONS: ROUTINE MAMMOGRAM AND CLINICAL EVALUATION IN 12 MONTHS. PLEASE NOTE: A NORMAL MAMMOGRAM DOES NOT EXCLUDE THE POSSIBILITY OF BREAST CANCER. A CLINICALLY SUSPICIOUS PALPABLE LUMP SHOULD BE BIOPSIED. Dictated by: Naseem Kan MD on 04/02/2024 at 15:36 Approved by: Naseem Kan MD on 04/02/2024 at 15:38 Dictated By: Naseem Kan M.D. Signed By: 04/02/24 1539 DD/ 1538 TD/TT: Drafter Engineering: Procedure Note Radiology, Radiologist, MD - 04/02/2024 [place] [address] Mammography Report Signed Patient: BERTHA GALARZA AMR#: [id number] : 1950cct:[id number] Age/Sex: 73 / FADM Date: 04/02/24 Loc: MAMMO Attending Dr: LYNSEY RINALDI Ordering Physician: Nay RINALDIults: Date of Service: 04/02/24Follow Up: Procedure(s): MM tomosynthesis screening BI Accession Number(s): [id number] cc: LYNSEY RINALDI Patient Name: BERTHA GALARZA MR#: [id number] : 1950 Exam Date: 04/02/2024 Ordering Doctor: LYNSEY RINALDI RADIOLOGY REPORT PROCEDURE: MM TOMOSYNTHESIS SCREENING BI COMPARISON: MG MAMM SCREEN 3D RABIA CAD, 03/29/2022. MM TOMOSYNTHESIS SCREENING BI, 04/01/2023. INDICATIONS: Screening Calculator Name NCI Breast Cancer Risk Assessment Tool 5 Year Breast Cancer Risk n/a% Lifetime Breast Cancer Risk n/a% Personal Breast Cancer Yes, Left breast cancer 2006 Personal Ovarian Cancer No Treatments Lumpectomy, radiation, and chemotherapy Family Cancers Father with lung cancer at age 51; Sister with coloncancer at age 54. LOCATION: [facility] BREAST COMPOSITION: There are scattered areas of fibroglandulardensity. FINDINGS: DIAGNOSTIC CATEGORY 2--BENIGN FINDING. NO CHANGE FROM COMPARISON. Scattered benign-appearing calcifications are present. Scattered benign-appearing lymph nodes are present. RIGHT BREAST: No significant suspicious finding. LEFT BREAST: No significant suspicious finding. Asymmetrically smallwith coarse calcification lower inner quadrant, unchanged RECOMMENDATIONS: ROUTINE MAMMOGRAM AND CLINICAL EVALUATION IN 12 MONTHS. PLEASE NOTE: A NORMAL MAMMOGRAM DOES NOT EXCLUDE THE POSSIBILITY OFBREAST CANCER. A CLINICALLY SUSPICIOUS PALPABLE LUMP SHOULD BE BIOPSIED. Dictated by: Naseem Kan MD on 04/02/2024 at 15:36 Approved by: Naseem Kan MD on 04/02/2024 at 15:38 Dictated By: Naseem Kan M.D. Signed By:04/02/24 1539 DD/ 1538 TD/TT: Drafter Engineering: Lynsey Rinaldi NP [facility] Final Result documented in this encounter Visit Diagnoses Not on filedocumented in this encounter Additional Health Concerns Assessment Noted Time PHQ-9 Depression Total Score: 0 02/27/20 24 11:00 AM EST documented as of this encounter Care Teams Insurance Office Supervisor Relationship Specialty Start Date End Date Moustapha De Leon MD [address] [place] [address] PCP - General Family Medicine 11/08/23 Stephanie Peters OD [address] [place] [address] Referring Physician Optometry 11/08/23 Lysney Rinaldi NP [address] [place] [address] Nurse Practitioner Family Medicine 11/13/23 07/14/24 Delmi Love NP [address] [place] [address] Nurse Practitioner Family Medicine 07/15/24 documented as of this encounter
--- OUTSIDE RECORDS SUMMARY | 2024-10-20 10:26 | XMS_ITS | Clinical Summary ---
Author Organization [employer] tem Address [id number] [address] [place] [address] Care Team Providers Care Fork Lift Mechanic Name Role Phone Jose David Morton DO Primary Care Provider [phone] Allergies Active Allergy Reactions Criticality Noted Date Comments Atorvastatin 08/11/2024 Penicillins Rash Low 12/18/2012 Medications levothyroxine (SYNTHROID, LEVOTHROID) 100 MCG tablet Take 1 tablet (100 mcg total) by mouth in the morning. 0 Active atorvastatin (LIPITOR) 20 mg tablet Take 0.5 tablets (10 mg total) by mouth in the morning. 0 Active omeprazole (PriLOSEC OTC) 20 mg tablet,delayed release (DR/EC) Take 1 tablet (20 mg total) by mouth daily. 30 each 11 1 Active prednisoLONE (PRELONE) 15 mg/5 mL syrup Take 10 mL PO QD x 5 days 50 mL 1 Active Additional Information Patient not taking.Reported on 08/18/2024 clindamycin (CLEOCIN PEDIATRIC) 15 mg/mL solution Take 10 mL TID x 10 days 300 mL 1 Active Additional Information Patient not taking.Reported on 08/18/2024 varenicline (CHANTIX STARTING MONTH BOX) 0.5 mg (11)- 1 mg (42) tabletIndicatio ns:Smoking Take 0.5 mg one daily on days 1-3 and 0.5 mg twice daily on days 4-7. Then 1 mg twice daily for a total of 12 weeks. 53 tablet 1 Active Additional Information Patient not taking.Reported on 08/18/2024 fluticasone propionate (FLONASE) 50 mcg/actuation nasal sprayIndication s:Nasal congestion Administer 1 spray into each nostril in the morning. 15.8 mL 2 3 Active cholecalciferol , vitamin D3, (VITAMIN D3) 5,000 units capsule Take 1 capsule (5,000 Units total) by mouth in the morning. 5 11/11/19 25 Active aspirin 81 mg Take 1 tablet (81 mg total) by mouth in the morning. 5 11/11/19 25 Active B-complex with vitamin C tablet Take 1 tablet by mouth in the morning. Active omega 5-vgh-npl-fish oil (Fish OiL) 1,000 (120-180) mg capsule Take 1 capsule by mouth in the morning. Active nicotine, polacrilex, 2 mg mini lozenge Apply 2 mg to cheek every 4 (four) hours as needed (craving). 90 each 3 5 Active alpha lipoic acid 200 mg capsule Take 1 capsule (200 mg total) by mouth in the morning and 1 capsule (200 mg total) before bedtime. 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 Hoarseness 03/24/2020 Encounters Date Type Department Care Team Description 08/27/2024 Orders Only [facility] [address] [place] [address] Mike Jules MD Lower extremity edema 08/20/2024 Orders Only [facility] [address] [place] [address] External, Scanning Provider 08/18/2024 3:50 PM EDT Office Visit [facility] [address] [place] [address] Mike Jules MD Lower extremity edema (Primary Dx); Dyslipidemia 08/18/2024 Travel 08/17/2024 Telephone [facility] [address] [place] [address] [place] [address] Shelli Francis CMA 08/11/2024 Abstract [facility] [address] [place] [address] External, Scanning Provider from Last 3 Months Family History Medical History Relation Name Comments Cancer Father lung Heart disease Mother Stroke Mother Relation Name Status Comments Father Mother Alive Social History Tobacco Use Types Packs/Day Years Used Date Smoking Tobacco: Every Day Cigarettes 1 40 Smokeless Tobacco: Never Tobacco Cessation:Ready to Q [...] AM EST Sexual Orientation Not on file Last Filed Vital Signs Vital Sign Reading Time Taken Comments Blood Pressure 120/76 08/18/2024 4:03 PM EDT Pulse 83 08/18/2024 4:03 PM EDT Temperature 36.6 C (97.8 F) 05/30/2020 11:50 AM EST Respiratory Rate 21 05/30/2020 12:59 PM EST Oxygen Saturation 94% 08/18/2024 4:03 PM EDT Inhaled Oxygen Concentration - - Weight 92.5 kg (204 lb) 08/18/2024 4:03 PM EDT Height 165.1 cm (5' 5 ) 08/18/2024 4:03 PM EDT Body Mass Index 33.95 08/18/2024 4:03 PM EDT Plan of Treatment Upcoming Encounters Date Type Department Care Team (Late st Contact Info) Description 02/16/2025 1:10 PM EST Office Visit [facility] [address] [place] [address] Mike Jules MD [address] [place] [address] Health Maintenance Due Date Last Done Comments Tobacco Counseling 1950 Depression Screening 1963 Adult BMI Follow Up Plan 1969 DTaP,Tdap and Td Vaccines (1 - Tdap) 1970 Zoster (Shingles) Vaccine (1 of 2) 2001 Fall Risk Screening 2016 COVID-19 Vaccine (4 - 2023-2 5 season) 2023 03/23/2021, 07/05/2020, 06/14/2020 Influenza Vaccine 12/14/2024 02/27/2024, , 02/07/2022, Additional history exists Adult BMI Screening 08/18/2025 08/18/2024 Tobacco Screening 08/18/2025 08/18/2024 Medical Devices Not on file Procedures Procedure Name Priority Date/Time Associated Diagnosis Comments VASC VENOUS DUPLEX INSUFFICIENCY LOWER BILATERAL Routine 08/25/2024 Lower extremity edema from Last 3 Months Results * Vas venous duplex insufficiency lwr bi (08/25/2024) Anatomical Region Laterality Modality Vascular Bilateral Ultrasound us Mike Jules MD CV VASCULAR ORDERABLES Final R esult from Last [address] [place] [address] [place] [address] MEDICARE Care Teams Fork Lift Mechanic Relationship Specialty Start Date End Date Jose David Morton DO PCP - General Family Medicine 04/01/20
--- OUTSIDE RECORDS SUMMARY | 2024-10-20 10:26 | XMS_ITS | Encounter Summary ---
Author Organization [facility] Address [address] [place] [address] Care Team Providers Care Student Accounts Manager Name Role Phone Stephanie Peters OD Unavailable Moustapha De Leon MD Primary Care Provider [phone] Lynsey Ortiz HUMAN RESOURCES GENERALIST Unavailable [phone] Delmi Love NP Unavailable [phone] Encounter Details Date Type Department Care Team (Late st Contact Info) Description 05/04/2024 Orders Only [facility] [address] [place] [address] Lynsey Ortiz NP Social History Tobacco Use Types Packs/Day [...] How often do you attend taoist or jewish serv ices? Patient declined 11/12/2023 Do you [...] Recorded Patient Health Questionnaire-2 Score 0 02/27/2024 [facility] - Occupational [...] any time in the past 12 m [facility], were you homeless or living in a jail (including now)? No 11/12/2023 Comments No Sex [...] Office Visit [facility] [address] [place] [address] Delmi Love NP [address] [place] [address] 01/20/2025 1:30 PM EDT Office Visit [facility] [address] [place] [address] Panda Campos DO [address] [place] [address] 03/23/2025 1:35 PM EST Office Visit [facility] [address] [place] [address] Shira Tan MD [address] [place] [address] 10/20/2025 11:00 AM EDT Office Visit [facility] [address] [place] [address] Cliff Hong PA [address] [place] [address] documented as of this encounter Procedures Procedure Name Priority Date/Time Associated Diagnosis Comments COLONOSCOPY DIAGNOSTIC Routine 05/04/2024 9:48 AM EST documented in this encounter Results * COLONOSCOPY DIAGNOSTIC (05/04/2024 9:48 AM EST) Anatomical Region Laterality Modality Radiographic Angela ging Lynsey Ortiz HUMAN RESOURCES GENERALIST IMG XR PROCEDURES Final Result documented in this encounter Visit Diagnoses Not on filedocumented in this encounter Additional Health Concerns Assessment Noted Time PHQ-9 Depression Total Score: 0 02/27/20 24 11:00 AM EST documented as of this encounter Care Teams Student Accounts Manager Relationship Specialty Start Date End Date Moustapha De Leon MD [address] [place] [address] PCP - General Family Medicine 11/08/23 Stephanie Peters OD [address] [place] [address] Referring Physician Optometry 11/08/23 Lynsey Ortiz NP [address] [place] [address] Nurse Practitioner Family Medicine 11/13/23 07/14/24 Delmi Love NP [address] [place] [address] Nurse Practitioner Family Medicine 07/15/24 documented as of this encounter
--- OUTSIDE RECORDS SUMMARY | 2024-10-20 10:26 | XMS_ITS | Encounter Summary ---
Author Organization [facility] Address [address] [place] [address] Care Team Providers Care Flatcar Whacker Name Role Phone Stephanie Peters OD Unavailable Moustapha De Leon MD Primary Care Provider [phone] Delmi Love VICE PRESIDENT OF SOFTWARE DEVELOPMENT Unavailable [phone] Encounter Details Date Type Department Care Team (Late st Contact Info) Description 10/02/2024 Orders Only [facility] [address] [place] [address] Delmi Love, JADE [address] [place] [address] Numbness and tingling of both feet (Primary Dx) Social History Tobacco Use Types [...] week 11/12/2023 How often do you attend voodoo or taoist serv ices? Patient declined 11/12/2023 Do you belong to any clubs o r organizations such as voodoo groups, unions, fraternal or athletic groups, or [...] Recorded Patient Health Questionnaire-2 Score 0 02/27/2024 [facility] - [...] any time in the past 12 m [facility], were you homeless or living in a skilled nursing (including now)? No 11/12/2023 Comments No Sex [...] Office Visit [facility] [address] [place] [address] Delmi Love NP [address] [place] [address] 01/20/2025 1:30 PM EDT Office Visit [facility] [address] [place] [address] Panda Campos DO [address] [place] [address] 03/23/2025 1:35 PM EST Office Visit [facility] [address] [place] [address] Shira Tan MD [address] [place] [address] 10/20/2025 11:00 AM EDT Office Visit [facility] [address] [place] [address] Cliff Hong PA [address] [place] [address] [place] [address] documented as of this encounter Visit Diagnoses Diagnosis Numbness and tingling of both feet- Primary documented in this encounter Additional Health Concerns Assessment Noted Time PHQ-9 Depression Total Score: 0 02/27/20 24 11:00 AM EST documented as of this encounter Care Teams Flatcar Whacker Relationship Specialty Start Date End Date Moustapha De Leon MD [address] [place] [address] PCP - General Family Medicine 11/08/23 Stephanie Peters OD [address] [facility] [place] [address] Referring Physician Optometry 11/08/23 Delmi Love NP [address] [place] [address] Nurse Practitioner Family Medicine 07/15/24 documented as of this encounter
--- OUTSIDE RECORDS SUMMARY | 2024-10-20 10:26 | XMS_ITS | Clinical Summary ---
Author Organization [facility] Address [address] [place] [address] Care Team Providers Care City Councilman Name Role Phone Stephanie Peters OD Unavailable Moustapha De Leon MD Primary Care Provider [phone] Delmi Love WHEEL AND PINION INSPECTOR Unavailable [phone] Allergies Active Allergy Reactions Criticality Noted Date Comments Atorvastatin Other 12/04/2023 myalgias Penicillins Hives,Itching,Rash Low 12/18/2012 Medications rosuvastatin (Crestor) 40 MG tabletIndications: Hyperlipidemia, unspecified hyperlipidemia type Take 1 tablet (40 mg) by mouth in the evening 90 tablet 1 5 025 Active aspirin 81 MG EC tabletIndications: Hyperlipidemia, unspecified hyperlipidemia type Take 1 tablet (81 mg) by mouth Daily 90 tablet 3 5 025 Active levothyroxine (Synthroid) 75 MCG tabletIndications: Hypothyroidism, unspecified type Take 1 tablet (75 mcg) by mouth in the morning. Take before meals. 90 tablet 1 5 025 Active cholecalciferol (Vitamin D-3) 125 MCG (5000 UT) tabletIndications: Vitamin D deficiency Take 1 tablet (125 mcg) by mouth Daily 90 tablet 5 025 Active nicotine polacrilex (Commit) [address] 2 mg into mouth between cheek and gum every 4 (four) hours if needed Active B Complex-C (b complex-vitamin c) tablet Take 1 tablet by mouth in the morning. Active Alpha Lipoic Acid 200 MG capsuleIndications :Neuropathy, idiopathic,Neuriti s Take 200 mg by mouth in the morning and 200 mg before bedtime. 180 capsule 5 025 Active D-Bmueuytqsvnc-Pfu ae-B12-B6 (Metanx) 3-90.314-2-35 MG capsuleIndications :Neuropathy, idiopathic,Neuriti s Take 3 mg by mouth in the morning and 3 mg before bedtime. 180 capsule 3 5 025 Alpha Lipoic Acid 200 MG capsuleIndications :Neuritis,Neuropat hy, idiopathic Take 200 mg by mouth in the morning and 200 mg before bedtime. 180 capsule 5 025 Discontinu ed(Reorder ) nitrofurantoin, macrocrystal-monoh ydrate, (Macrobid) 100 MG capsuleIndications :UTI symptoms Take 1 capsule (100 mg) by mouth in the morning and 1 capsule (100 mg) before bedtime. Do all this for 7 days. 14 capsule 5 025 Active Problems Problem Noted Date Diagnosed Date Spondylosis of cervical spine 09/29/2024 Acquired spondylolisthesis of lumbosacral region 09/29/2024 Lumbar back pain 09/24/2024 Assessment & Plan (09/24/2024 5:25 PM EDT): Check plain film Suspect LE sxs are radicular Neck pain 09/24/2024 Assessment & Plan (09/24/2024 5:24 PM EDT): Check xray Other chest pain 09/24/2024 Assessment & Plan (09/24/2024 5:28 PM EDT): Unclear if the right chest pain and neck pain is radicular in nature, pt is established with cardiology, I will reach out to them and call to see if they would like to work her up Other fatigue 08/12/2024 Assessment & Plan (09/24/2024 7:09 AM EDT): Does follow cardiology Reviewed thyroid labs Consider sleep study Assessment & Plan (08/12/2024 6:35 PM EDT): Will check labs including thyroid Consideration for cardiac or pulmonary etiology Past EKG RBBB, echo from 2023: EF 50% Will order EKG, may need stress test based on strong family hx of CAD Numbness and tingling of both feet 08/12/2024 Assessment & Plan (09/24/2024 5:25 PM EDT): Check xray lumbar and order EMG's bilat LE Assessment & Plan (08/12/2024 6:26 PM EDT): Check Vit b12 Also is seeing vascular doctor upcoming Age-related osteoporosis wit hout current pathological fracture 06/07/2024 Overview (06/07/2024): DEXA scan 04/03/24: : -2.7 spine, hip -3.1 Vitamin D deficiency 06/07/2024 06/07/2024 Assessment & Plan (08/12/2024 6:27 PM EDT): Vit d supplement Tobacco dependence 04/13/2024 Assessment & Plan (09/24/2024 7:09 AM EDT): The patient has been advised of the risks of continued smoking: stroke, GA, all forms of cancer, lung disease, and . Options for quitting smoking include: cold turkey, hypnosis, acupuncture, nicotine replacement meds (gum, lozenges, and patches), Buproprion, and Varenicline. At this time pt is encouraged to evaluate their goals for wanting to quit smoking, and reach out to provider when ready to start this process Assessment & Plan (08/12/2024 6:54 AM EDT): The patient has been advised of the risks of continued smoking: stroke, GA, all forms of cancer, lung disease, and . Options for quitting smoking include: cold turkey, hypnosis, acupuncture, nicotine replacement meds (gum, lozenges, and patches), Buproprion, and Varenicline. At this time pt is encouraged to evaluate their goals for wanting to quit smoking, and reach out to provider when ready to start this process Assessment & Plan (07/16/2024 6:48 AM EDT): The patient has been advised of the risks of continued smoking: stroke, GA, all forms of cancer, lung disease, and . Options for quitting smoking include: cold turkey, hypnosis, acupuncture, nicotine replacement meds (gum, lozenges, and patches), Buproprion, and Varenicline. At this time pt is encouraged to evaluate their goals for wanting to quit smoking, and reach out to provider when ready to start this process Assessment & Plan (04/13/2024 12:05 PM EST): The patient has been advised of the risks of continued smoking: stroke, GA, all forms of cancer, lung disease, and . Options for quitting smoking include: cold turkey, hypnosis, acupuncture, nicotine replacement meds (gum, lozenges, and patches), Buproprion, and Varenicline. At this time pt is encouraged to evaluate their goals for wanting to quit smoking, and reach out to provider when ready to start this process Positive colorectal cancer screening using Colog uard test 03/26/2024 Encounter for screening for malignant neoplasm o f colon 03/26/2024 Prediabetes 12/19/2023 Assessment & Plan (05/28/2024 10:36 AM EST): Most recent labs: hemoglobin A1C 5.9%. Will recheck in 3 months. Assessment & Plan (12/19/2023 11:57 AM EDT): Dietary tips and recommendations given. Continue to implement lifestyle and dietary modifications. Recheck A1C in February. Hypertriglyceridemia 11/18/2023 Assessment & Plan (05/28/2024 10:37 AM EST): Most recent Lipid Panel Triglycerides were still elevated at 313 but a decrease from previous of 430. Pt discussed initiating Fenofibrate with Professor Of Fine Art- he recommended and initiated Aspirin 81mg at this time; Current Regimen Crestor 40mg; Given hx of Hypothyroidsim and prediabtes will give time to make lifestyle modifications and allow TSH levels to normalize then recheck Lipid Panel in 3 months. If Triglycerides are still elevated will discuss with Cardiology recommendations moving forward. Assessment & Plan (12/20/2023 9:51 AM EDT): Most recent Lipid Panel Triglycerides were still elevated at 430 Pt discussed initiating Fenofibrate with Professor Of Fine Art- he recommended and initiated Aspirin 81mg at this time; Current Regimen Crestor 40mg; Given hx of Hypothyroidsim and prediabtes will give time to make lifestyle modifications and allow TSH levels to normalize then recheck Lipid Panel in 3 months. If Triglycerides are still elevated will discuss with Cardiology recommendations moving forward. Assessment & Plan (11/18/2023 10:32 AM EDT): Echo and Carotid duplex ordered. Lipid panel and CMP ordered. Continue Crestor 20mg as directed Hypothyroid 11/18/2023 Assessment & Plan (09/24/2024 7:10 AM EDT): Current medication: levothyroxine Check labs yearly and prn dose change or changes in sxs Assessment & Plan (08/12/2024 6:26 PM EDT): Current medication: levothyroxine Check labs yearly and prn dose change or changes in sxs Unsure if this is the cause of fatigue, will check Assessment & Plan (12/19/2023 11:51 AM EDT): TSH low- decreased levothyroxine to 75mcg. Recheck TSH in 2 weeks. Hyperlipidemia 11/18/2023 Assessment & Plan (08/12/2024 6:57 AM EDT): Current meds fish oil, and crestor Check labs yearly and prn Assessment & Plan (11/18/2023 10:32 AM EDT): Echo and Carotid duplex ordered. Lipid panel and CMP ordered. 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 Dry eyes 11/08/2023 Lesion of vocal cord 03/24/2020 Personal history of malignant neoplasm of breast 12/18/2013 Breast cancer 12/05/2012 Resolved Problems Problem Noted Date Diagnosed Date Resolved Date UTI symptoms 09/14/2024 09/24/2024 Family history of coronary artery disease 08/12/2024 09/24/2024 Acute otitis externa of left ear 07/16/2024 09/24/2024 Assessment & Plan (07/16/2024 12:04 PM EDT): Atb drops Fu in 3 weeks for recheck Blepharitis of upper and low er eyelids of both eyes 05/25/2024 09/24/2024 Acute URI 04/13/2024 07/16/2024 Assessment & Plan (04/13/2024 12:02 PM EST): Differential dx: virus, COVID, Flu, RSV Fluids, steroids, and albuterol inhaler Tylenol as needed fever Acute non-recurrent maxillary sinusitis 04/13/2024 07/16/2024 Assessment & Plan (04/13/2024 12:04 PM EST): Doxycycline 100mg twice daily for 10 days Fu if not better Encounter for osteoporosis s creening in asymptomatic postmenopausal patient 02/27/202409/13 Impacted cerumen of left ear 12/19/2023 09/24/2024 Bilateral posterior capsular opacification 11/08/2023 05/25/2024 Cystitis 09/03/2023 04/13/2024 Encounters Date Type Department Care Team Description 10/20/2024 Telephone [facility] [address] [place] [address] Delmi Love NP 10/14/2024 10:30 AM EDT Office Visit [facility] [address] [place] [address] Darien Blanca, DPM Neuropathy, idiopathic (Primary Dx); Peripheral vascular disease; Smoker; Corns and callosities; Left foot pain; Neuritis 10/14/2024 Travel 10/13/2024 12:00 PM EDT Procedure Visit [facility] [address] [place] [address] Tito Guevara MD Numbness (Primary Dx); Paresthesias; Peripheral polyneuropathy 10/13/2024 Travel 10/12/2024 Abstract [facility] [address] [place] [address] Delmi Love NP 10/07/2024 Telephone [facility] [address] [place] [address] Delmi Love, JADE Lab Orders 10/02/2024 Orders Only [facility] [address] [place] [address] Delmi Love, JADE Numbness and tingling of both feet (Primary Dx) 09/29/2024 Orders Only [facility] [address] [place] [address] Delmi Love, JADE Numbness and tingling of both feet (Primary Dx); Spondylosis of cervical spine; Acquired spondylolisthesis of lumbosacral region 09/28/2024 9:30 AM EDT Ancillary Procedure [facility] [address] [facility] [address] [place] [phone] Neck pain 09/28/2024 9:00 AM EDT Ancillary Procedure [facility] [address] [place] [phone] Lumbar back pain 09/28/2024 Travel 09/25/2024 Telephone [facility] [address] [facility] [address] [place] [address] Tito Guevara MD 09/24/2024 3:20 PM EDT Office Visit [facility] [address] [place] [address] Delmi Love NP Numbness and tingling of both feet (Primary Dx); Tobacco dependence; Other fatigue; Hypothyroidism, unspecified type ; Lumbar back pain; Neck pain; Other chest pain 09/24/2024 Bamboo flowsheet [facility] [address] [place] [address] Delmi Love NP 09/14/2024 Refill [facility] [address] [place] [address] Delmi Love NP UTI symptoms (Primary Dx) 09/14/2024 Telephone [facility] [address] [place] [address] Delmi Love NP 09/04/2024 Orders Only [facility] [address] [place] [address] Delmi Love NP 09/01/2024 Results Follow-Up [facility] [address] [place] [address] 09/01/2024 Results Follow-Up [facility] [address] [place] [address] 08/26/2024 Clinisync Result Encounter [facility] External Department Unsolicited Delim Love NP 08/26/2024 Clinisync Result Encounter [facility] External Department Unsolicited Delmi Love NP 08/25/2024 11:30 AM EDT Ancillary Procedure [facility] [address] [place] [id number] Localized edema 08/25/2024 Travel 08/25/2024 Orders Only [facility] [address] [place] [address] Delmi Love, JADE Vitamin D deficiency (Primary Dx) 08/21/2024 Refill [facility] [address] [place] [address] Delmi Love NP Vitamin D deficiency 08/19/2024 Refill [facility] [address] [place] [address] Delmi Love NP Vitamin D deficiency (Primary Dx) 08/19/2024 Telephone [facility] [address] [place] [address] Delmi Love NP 08/12/2024 1:40 PM EDT Office Visit [facility] [address] [place] [address] Delmi Love NP Other fatigue (Primary Dx); Hypothyroidism, unspecified type ; Acute otitis externa of left ear, unspecified type; Mixed hyperlipidemia ; Tobacco dependence; Hyperlipidemia, unspecified hyperlipidemia type ; Numbness and tingling of both feet; Vitamin D deficiency; Family history of coronary artery disease 08/12/2024 Bamboo flowsheet [facility] [address] [place] [address] Delmi Love NP 08/11/2024 Refill [facility] [address] [place] [address] Delmi Love NP Hyperlipidemia, unspecified hyperlipidemia type 08/05/2024 Refill [facility] [address] [place] [address] Delmi Love NP Hypothyroidism, unspecified type 07/23/2024 Refill [facility] [address] [place] [address] Delmi Love, JADE Mixed hyperlipidemia 07/21/2024 Telephone [facility] [address] [place] [phone] Darien Blanca DPM from Last 3 Months Immunizations Immunization Administration Dates Next Due Influenza, Seasonal, Quadriv alent, Adjuvanted 02/13/2023,02/07/2022,04/11/2021 Influenza, injectable, quadr ivalent, preservative free 01/13/2020,12/25/2019,03/14/2017 Influenza, recombinant, quad rivalent, injectable, preservative free 01/21/2019 Influenza, seasonal, injecta ble, preservative free 02/27/2024 Influenza, seasonal, intrade rmal, preservative free 01/23/2016 Influenza, trivalent, adjuvanted 01/28/2018 Pneumococcal Conjugate PCV 13 03/14/2017 Pneumococcal Polysaccharide PPSV23 01/21/2019 Family History Medical History Relation Name Comments Cancer Father Rufus Diabetes Mother Valerie Stroke Mother Valerie Cancer Other [facility] Cancer Sister 1 Claudia Diabetes Sister 1 Claudia Stroke Sister 2 Shira Melanoma Neg Hx Relation Name Status Comments Father Urfus Mother Valerie Alive Other [facility] Sister 1 Claudia Sister 2 Shira Alive Social History Tobacco Use Types Packs/Day [...] week 11/12/2023 How often do you attend mosque or yazidi serv ices? Patient declined 11/12/2023 Do you belong to any clubs o r organizations such as mosque groups, unions, fraternal or athletic groups, or [...] Recorded Patient Health Questionnaire-2 Score 0 02/27/2024 [facility] - [...] [facility] were you homeless or living in a jail (including now)? No 11/12/2023 Comments No Sex and Gender Information Value Date Recorded Sex Assigned at Not on file Legal Sex Female 7:30 PM EDT Gender Identity Not on file Sexual Orientation Not on file Last Filed Vital Signs Vital Sign Reading Time Taken Comments Blood Pressure 112/64 09/24/2024 3:38 PM EDT Pulse 76 09/24/2024 3:38 PM EDT Temperature 36.8 C (98.3 F) 09/24/2024 3:38 PM EDT Respiratory Rate 18 09/24/2024 3:38 PM EDT Oxygen Saturation 93% 09/24/2024 3:38 PM EDT Inhaled Oxygen Concentration - - Weight 92.1 kg (203 lb) 10/14/2024 10:34 AM EDT Height 167.6 cm (5' 6 ) 10/14/2024 10:34 AM EDT Body Mass Index 32.77 10/14/2024 10:34 AM EDT Plan of Treatment Upcoming Encounters Date Type Department Care Team (Late st Contact Info) Description 11/09/2024 3:00 PM EDT Office Visit [facility] [address] [place] [address] Delmi Love NP [address] [place] [address] 01/20/2025 1:30 PM EDT Office Visit [facility] [address] [place] [address] Panda Campos DO [address] [place] [address] 03/23/2025 1:35 PM EST Office Visit [facility] [address] [place] [address] Shira Tan MD [address] [place] [address] 10/20/2025 11:00 AM EDT Office Visit [facility] [address] [place] [address] Cliff Hong PA [address] [place] [address] Health Maintenance Due Date Last Done Comments CT Colonography 1950 FIT 1950 FOBT 1950 Lung Cancer Screening Shared Decision Making 1950 Sigmoidoscopy 1950 Influenza Vaccine (#1) 2024 , 02/13/2023, 02/07/2022, Additional history exists Medicare Annual Wellness (AWV) 02/26/2025 02/27/2024 FIT-DNA 03/18/2027 03/18/2024, 03/25/2019 Colonoscopy 05/04/2034 05/04/2024 Colorectal Cancer Screening 05/04/2034 Pneumococcal Vaccine: 65+ Years Completed 9, 03/14/2017 Mammogram Discontinued 04/02/2024, 03/15, 03/22/2023 Procedures Procedure Name Priority Date/Time Associated Diagnosis Comments XR CERVICAL SPINE 2-3 VIEWS Routine 09/28/2024 11:05 AM EDT Neck pain XR LUMBAR SPINE 2-3 VIEWS Routine 09/28/2024 11:05 AM EDT Lumbar back pain ECG 12-LEAD 08/26/2024 1:18 PM EDT VITAMIN B12 Routine 08/26/2024 1:04 PM EDT ALL THYROID STIM HORMONE Routine 08/26/2024 1:04 PM EDT ALL T3 FREE Routine 08/26/2024 1:04 PM EDT ALL THYROXINE (T4) FREE Routine 08/26/2024 1:04 PM EDT HMHP IRON Routine 08/26/2024 1:04 PM EDT ALL CBC WITH AUTO DIFF Routine 1:04 PM EDT VASC US LOWER EXTREMITY VENOUS INSUFFICIENCY BILATERAL Routine 08/25/2024 12:22 PM EDT Localized edema COLONOSCOPY DIAGNOSTIC Routine 9:48 AM EST MM TOMOSYNTHESIS SCREENING BI 04/02/2024 3:38 PM EST LAB COLOGUARD COLON CANCER SCREEN Routine 03/18/2024 9:50 AM EST Screening for malignant neoplasm of colon from Last 3 Months or Most Recently Relevant to Health Maintenance Results * XR cervical spine 2 or 3 views (09/28/2024 11:05 AM EDT) Anatomical Region Laterality Modality Spine, C-spine Radiographic Angela ging 09/28/2024 3:20 PM EDT Narrative 09/28/2024 3:20 PM EDT Title of exam: XR CERVICAL SPINE 2-3 VIEWS Reason for exam: Chronic neck [...] report is generated using voice recognition reporting (BlockSpring). On occasion, CHIC.TVe erroneously drops words from the report or replaces the spoken word with a similar sounding word. Please call with any questions/concerns regarding the report. Procedure Note Jesse Figueroa MD - 09/28/2024 Title of exam: XR CERVICAL SPINE 2-3 VIEWS Reason for exam: Chronic neck pain Comparison: None 3 images. For counting purposes there are 5 nonrib-bearing type lumbarvertebral bodies. Vertebral body height is maintained. 1.1 cm ofanterolisthesis of L4 on L5 is present. 6.6 mm of anterolisthesis of L5 onS1 with disc space narrowing. No definite spondylolysis. No angulation. Nofocal bone lesion. The sacral struts and sacroiliac joints are preserved. Diffuse atherosclerosis. Moderate amount of stool in the colon. Postoperative changes of the right upper quadrant. IMPRESSION: 1. Grade 1 spondylolisthesis of L4 on L5 and L5 on S1 withoutspondylolysis by this technique. 2. Atherosclerosis. Dictated on: 09/28/2024 1:08 PM This report has been electronically signed and approved by theinterpreting Radiologist. This report is generated using voice recognition reporting (BlockSpring).On occasion, BlockSpring erroneously drops words from the report orreplaces the spoken word with a similar sounding word. Please call withany questions/concerns regarding the report. Delmi Love NP IMG XR PROCEDURES Final Result * XR lumbar spine 2 or 3 views (09/28/2024 11:05 AM EDT) Anatomical Region Laterality Modality Spine, L-spine Radiographic Angela ging 09/28/2024 3:18 PM EDT Narrative 09/28/2024 3:18 PM EDT Title of exam: XR LUMBAR SPINE 2-3 VIEWS Reason for exam: Lumbar pain [...] report is generated using voice recognition reporting (BlockSpring). On occasion, WhoisEDIcribe erroneously drops words from the report or replaces the spoken word with a similar sounding word. Please call with any questions/concerns regarding the report. Dictated on: 09/28/2024 1:06 PM 09/28/2024 9:36 AM This report has been electronically signed and approved by the interpreting Radiologist. Procedure Note Jesse Figueroa MD - 09/28/2024 Title of exam: XR LUMBAR SPINE 2-3 VIEWS Reason for exam: Lumbar pain with radiculopathy Comparison: None 3 images. Prevertebral soft tissues are normal in thickness. Vertebralbody height is maintained from the skull base to the bottom of C7. The topof T1 is not visualized. Anterior and posterior spurring present at C4-C5,C5-C6, C6-C7 with endplate sclerosis and disc space narrowing pronouncedat C6-C7. Narrowing of the C1-C2 articulation is present. The lateralmasses and dens are normal alignment in the frontal projection. The tip ofthe dens is obscured. The spinous processes are normal alignment thefrontal projection. Uncovertebral hypertrophy present in the mid cervicalspine. Lung apices without abnormality. Atherosclerosis. IMPRESSION: 1. Moderate diffuse cervical spondylosis from C4-C7. Most pronounced atC6-C7. 2. Arthritic changes of the C1-C2 articulation. 3. The C7-T1 articulation is not visualized. Recommend swimmer's view tocomplete the series. This report is generated using voice recognition reporting (BlockSpring).On occasion, WhoisEDIcribe erroneously drops words from the report orreplaces the spoken word with a similar sounding word. Please call withany questions/concerns regarding the report. Dictated on: 09/28/2024 1:06 PM 09/28/2024 9:36 AM This report has been electronically signed and approved by theinterpreting Radiologist. 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 Measurements Intervals [place] Rate: 82 P: 79 MI: 153 QRS: -70 QRSD: 120 T: 59 QT: 377 QTc: 441 Interpretive Statements SINUS RHYTHM MARKED LEFT AXIS DEVIATION [QRS AXIS < -30] RIGHT BUNDLE BRANCH BLOCK [120+ ms QRS DURATION, UPRIGHT V1, 40+ ms S IN I/aVL/V4/V5/V6] WARNING: DATA QUALITY MAY AFFECT INTERPRETATION Compared to ECG 11/19/2023 10:39:10 Myocardial infarct finding no longer present Electronically Signed On 08-27-2024 19:43:19 EDT by TRIXIE AVENDAÑO M.D. 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 Measurements Intervals [place] Rate: 82 P: 79 MI: 153 QRS: -70 QRSD: 120 T: 59 QT: 377 QTc: 441 Interpretive Statements SINUS RHYTHM MARKED LEFT AXIS DEVIATION [QRS AXIS < -30] RIGHT BUNDLE BRANCH BLOCK [120+ ms QRS DURATION, UPRIGHT V1, 40+ ms S IN I/aVL/V4/V5/V6] WARNING: DATA QUALITY MAY AFFECT INTERPRETATION Compared to ECG 11/19/2023 10:39:10 Myocardial infarct finding no longer present Electronically Signed On 08-27-2024 19:43:19 EDT by TRIXIE AVENDAÑO M.D. Dictated By: TRIXIE AVENDAÑO Signed By:08/27/[id number]/27/241942 DD/ TD/TT: Patch Driller: us Delmi Love NP [facility] Final Result * VITAMIN B12 (08/26/2024 1:04 PM EDT) VITAMIN B12 618 232 - 1245 pg/mL [facility] Comment: Performed at: [address] [id number] Safe Technician: Arnel Amaro PhD, Phone: [phone] 08/26/2024 1:04 PM EDT 08/26/2024 1:07 PM EDT Narrative CLINISYNC - 08/27/2024 9:09 AM EDT us Delmi Love NP LAB BLOOD ORDERABLES Final Resu lt Performing Organization Address [facility]/ZIP Co de Phone Number [facility] * HMHP IRON (08/26/2024 1:04 PM EDT) TBH IRON 50.0 50.0 - 170.0 ug/dL [facility] 08/26/2024 1:04 PM EDT 08/26/2024 1:07 PM EDT Narrative CLINISYNC - 08/26/2024 2:17 PM EDT Delmi Love NP CLINISYNC Final Result Performing Organization Address [facility] Co de Phone Number [facility] * ALL THYROXINE (T4) FREE (08/26/2024 1:04 PM EDT) FREE T4 1.17 0.76 - 1.46 ng/dL [facility]H 08/26/2024 1:04 PM EDT 08/26/2024 1:07 PM EDT Narrative CLINISYNC - 08/26/2024 2:52 PM EDT Delmi Love NP CLINISYNC Final Result Performing Organization Address [facility] Co de Phone Number [facility] * (ABNORMAL) ALL THYROID STIM HORMONE (08/26/2024 1:04 PM EDT) THYROID STIMULATING HORMONE 0.301(L) 0.358 - 3.740 uIU/mL [facility]H 08/26/2024 1:04 PM EDT 08/26/2024 1:07 PM EDT Narrative CLINISYNC - 08/26/2024 2:52 PM EDT us Delmi Aichholz WHEEL AND PINION INSPECTOR CLINISYNC Final Result CLINISYNC [facility] * ALL T3 FREE (08/26/2024 1:04 PM EDT) FREE T3 2.44 2.18 - 3.98 pg/mL [facility]H 08/26/2024 1:04 PM EDT 08/26/2024 1:07 PM EDT Narrative CLINISYNC - 08/26/2024 2:52 PM EDT us Delmi Love WHEEL AND PINION INSPECTOR CLINISYNC Final Result CLINISYNC [facility] * (ABNORMAL) ALL CBC WITH AUTO DIFF (08/26/2024 1:04 PM EDT) TB WBC 8.1 4.0 - 11.0 10 3/uL TBH TBH RBC 4.45 4.20 - 5.40 10 6/uL TBH TBH HGB 14.3 12.0 - 16.0 g/dL TB TB HCT 42.4 36.0 - 48.0 % TBH TBH MCV 95.3 81.0 - 99.0 fL TBH TBH MCH 32.1 26.7 - 34.0 pg TBH TBH MCHC 33.7 29.9 - 35.2 g/dL TBH TBH RDW 12.3 11.0 - 15.0 % TBH TBH PLT 230 150 - 450 10 3/uL TBH TBH MPV 9.2(L) 9.5 - 13.5 fL TBH NEUTROPHILS PERCENT AUTO 67.3 43.0 - 75.0 % TBH LYMPHOCYTES PERCENT AUTO 20.7 20.5 - 60.0 % TBH MONOCYTES PERCENT AUTO 10.2 1.7 - 12.0 % TBH TBH EO % 1.4 0.9 - 7.0 % TBH BASOPHILS PERCENT AUTO 0.2 0.2 - 2.0 % TBH IMMATURE GRANULOCYTES PCT AUTO 0.2 0.0 - 0.5 % TBH NEUTROPHILS ABSOLUTE AUTO 5.4 1.4 - 6.5 10 3/uL TBH LYMPHOCYTES ABSOLUTE AUTO 1.7 1.2 - 3.8 10 3/uL TBH MONOCYTES ABSOLUTE AUTO 0.8 0.3 - 0.8 10 3/uL TBH TBH EO # 0.1 0.0 - 0.7 10 3/uL TBH BASOPHILS ABSOLUTE AUTO 0.0 0.0 - 0.1 10 3/uL TBH IMMATURE GRANULOCYTES ABS AUTO 0.02 0.00 - 0.03 10 3/uL TBH 08/26/2024 1:04 PM EDT 08/26/2024 1:07 PM EDT Narrative CLINISYNC - 08/26/2024 1:22 PM EDT us Delmi Love NP CLINISYCHRISTI Final Result [facility] * Vascular US lower extremity venous insufficiency bilateral (08/25/2024 12:22 PM EDT) Anatomical Region Laterality Modality Lower Extremities Ultrasound 08/25/2024 6:17 PM EDT Narrative 08/25/2024 6:17 PM EDT EXAM: Bilateral Lower Extremity Venous Insufficiency Ultrasound: REASON FOR EXAM: Edema [...] report is generated using voice recognition reporting ([employer]). On occasion Socialscopecribe erroneously drops words from the report or replaces the spoken word with similar sounding words. Please call with any questions/concerns regarding this report.* Dictated and transcribed 08/25/24/dpd This report has been electronically signed and approved by the interpreting radiologist. Procedure Note Jesse Figueroa MD - 08/25/2024 EXAM: Bilateral Lower Extremity Venous Insufficiency Ultrasound: REASON FOR EXAM: Edema COMPARISON: None TECHNIQUE: Longitudinal and transverse grayscale, color Doppler,spectral wave analysis used to evaluate the lower extremity venous systemsbilaterally. There is normal compressibility, Doppler signal, response toaugmentation and respiratory variability of the lower extremity deepvenous system. No reflux of the deep or superficial system on the right. Mild reflux of the upper greater saphenous vein on the left. Measurements: Right: Left: Vein: Diameter: Reflux (msec) Vein: Diameter: Reflux(msec) CFV: 0.96 / ---- CFV: 1.41 /----- SF/GSV Junc: 1.08 / 0.47 SF/GSV Junc: 1.10 / 0.63 /----- SFV Prox: 0.74 / ---- SFV Prox: 0.66 /---- SFV Mid: 0.49 / ---- SFV Mid: 0.56 /---- SFV Dist: 0.61 / ---- SFV Dist: 0.74 /---- POP: 1.17 / ---- POP: 0.91 /--- GSV Prox: 0.57 / ---- GSV Prox: [...] Ankle: 0.36 / ---- GSV Ankle: 0.23 /--- Marlys V: 0.66 / --- Marlys V: 0.87 /---- PTV Prox: 0.39 / 0.33 / --- PTV Prox: 0.36 / 0.36 /---- PTV Mid: 0.27 / 0.37 / ---- PTV Mid: 0.36 / 0.36 /---- PTV Dist: 0.29 / 0.31 / --- PTV Dist: 0.33 / 0.27/ ---- IMPRESSION: 1. No sonographic evidence of superficial or deep venous thrombosis. 2. Mild focal reflux left proximal greater saphenous vein. *This report is generated using voice recognition reporting (Power[employer]).On occasion PowerScribe erroneously drops words from the report orreplaces the spoken word with similar sounding words. Please call with anyquestions/concerns regarding this report.* Dictated and transcribed 08/25/24/dpd This report has been electronically signed and approved by theinterpreting radiologist. us Mike Jules MD IMG US PROCEDURES Final Result * COLONOSCOPY DIAGNOSTIC (05/04/2024 9:48 AM EST) Anatomical Region Laterality Modality Radiographic Angela ging us Lynsey Ortiz WHEEL AND PINION INSPECTOR IMG XR PROCEDURES Final Result * MM TOMOSYNTHESIS SCREENING BI (04/02/2024 3:38 PM EST) Anatomical Region Laterality Modality Other 04/02/2024 3:38 PM EST Narrative 04/02/2024 3:39 [place] [address] Mammography Report Signed Patient: BERTHA GALARZA MR#: [id number] : 1950 Acct:[id number] Age/Sex: 73 / F ADM Date: 04/02/24 Loc: MAMMO Attending Dr: LYNSEY ORTIZ Ordering Physician: LYNSEY ORTIZ Results: Date of Service: 04/02/24 Follow Up: Procedure(s): MM tomosynthesis screening BI Accession Number(s): [id number] cc: LYNSEY ORTIZ Patient Name: BERTHA GALARZA MR#: [id number] : 1950 Exam Date: 04/02/2024 Ordering Doctor: LYNSEY ORTIZ RADIOLOGY REPORT PROCEDURE: MM TOMOSYNTHESIS SCREENING BI [...] colon cancer at age 55. LOCATION: [facility] BREAST COMPOSITION: There are scattered areas of [...] Signed By: 04/02/24 1539 DD/ 1538 TD/TT: Patch Driller: Procedure Note Radiology, Radiologist, MD - 04/02/2024 [place] [address] Mammography Report Signed Patient: BERTHA GALARZA AMR#: [id number] : 1950cct:[id number] Age/Sex: 73 / FADM Date: 04/02/24 Loc: MAMMO Attending Dr: LYNSEY ORTIZ Ordering Physician: Nay ORTIZults: Date of Service: 04/02/24Follow Up: Procedure(s): MM tomosynthesis screening BI Accession Number(s): [id number] cc: LYNSEY ORTIZ Patient Name: BERTHA GALARZA MR#: [id number] : 1950 Exam Date: 04/02/2024 Ordering Doctor: LYNSEY ORTIZ RADIOLOGY REPORT PROCEDURE: MM TOMOSYNTHESIS SCREENING BI [...] with coloncancer at age 55. LOCATION: [facility] BREAST COMPOSITION: There are scattered areas of [...] M.D. Signed By:04/02/24 1539 DD/ 1538 TD/TT: Patch Driller: Lynsey Ortiz NP CLINISYNC IMAGING Final Result * (ABNORMAL) Cologuard?? colon cancer screening (03/18/2024 9:50 AM EST) NONINV COLON CA DNA+OCC BLD SCRN STL-IMP Positive( A) Negative 03/25/2024 5:47 PM EST [employer] (CLIA #:[id number]) Comment: POSITIVE TEST RESULT. A positive Cologuard result should be followed with a colonoscopy or visual examination of the colon. The normal value (reference range) for this assay is negative. TEST DESCRIPTION: Composite algorithmic analysis of stool DNA-biomarkers with hemoglobin immunoassay. Quantitative values of individual biomarkers are not reportable and are not associated with individual biomarker result reference ranges. Cologuard is intended for colorectal cancer screening of adults of either sex, 45 years or older, who are at average-risk for colorectal cancer (CRC). Cologuard has been approved for use by the U.S. FDA. The performance of Cologuard was established in a cross sectional study of average-risk adults aged 50-84. Cologuard performance in patients ages 45 to 49 years was estimated by sub-group analysis of near-age groups. Colonoscopies performed for a positive result may find as the most clinically significant lesion: colorectal cancer [4.0%], advanced adenoma (including sessile serrated polyps greater than or equal to 1cm diameter) [20%] or non- advanced adenoma [31%]; or no colorectal neoplasia [45%]. These estimates are derived from a prospective cross-sectional screening study of 10,000 individuals at average risk for colorectal cancer who were screened with both Cologuard and colonoscopy. (Eduardo Paiz al, N Engl J Med 2014;370(14):6726-2410.) Cologuard may produce a false negative or false positive result (no colorectal cancer or precancerous polyp present at colonoscopy follow up). A negative Cologuard test result does not guarantee the absence of CRC or advanced adenoma (pre-cancer). The current Cologuard screening interval is every 3 years. ([place] [employer] and U.S. Multi-Society Task Force). Cologuard performance data in a 10,000 patient pivotal study using colonoscopy as the reference method can be accessed at the following location: www.[employer]/results. Additional description of the Cologuard test process, warnings and precautions can be found at www.SmartCloudoguard.com. Stool specimen (specimen) 03/18/2024 9:50 AM EST 03/20/2024 12:44 PM EST Lynsey Ortiz NP LAB MOLECULAR DIAGNOSTIC S ORDERABLES Final Result .[employer] (CLIA #:[id number]) [address] [address], [employer] (CLIA #:[id number]) [address] [address] from Last 3 Months or Most Recently Relevant to Health Maintenance Insurance [facility] MEDICARE ADVANTAGE Care Teams City Councilman Relationship Specialty Start Date End Date Moustapha De Leon MD [address] [place] [address] PCP - General Family Medicine 11/08/23 Stephanie Peters OD [address] [place] [address] Referring Physician Optometry 11/08/23 Delmi Love NP [address] [place] [address] Nurse Practitioner Family Medicine 07/15/24
--- OUTSIDE RECORDS SUMMARY | 2024-10-20 10:26 | XMS_ITS | Encounter Summary ---
Author Organization [facility] Address [address] [place] [address] Care Team Providers Care Broomcorn Thresher Name Role Phone Stephanie Peters OD Unavailable Moustapha De Leon MD Primary Care Provider [phone] Lynsey Ortiz TEST CENTER ADMINISTRATOR Unavailable Delmi Love TEST CENTER ADMINISTRATOR Unavailable [phone] Encounter Details Date Type Department Care Team (Late st Contact Info) Description 05/05/2024 Orders Only [facility] [address] [place] [address] Taiwo Rosa MD [address] [facility] [address] [place] [address] Social History Tobacco Use Types Packs/Day Years [...] week 11/12/2023 How often do you attend spiritism or congregational serv ices? Patient declined 11/12/2023 Do you belong to any clubs o r organizations such as spiritism groups, unions, fraternal or athletic groups, or [...] Recorded Patient Health Questionnaire-2 Score 0 02/27/2024 [facility] - Occupational [...] any time in the past 12 m [facility], were you homeless or living in a nursing home (including now)? No 11/12/2023 Comments No [...] Office Visit [facility] [address] [place] [address] Delmi Love NP [address] [place] [address] 01/20/2025 1:30 PM EDT Office Visit [facility] [address] [place] [address] Panda Campos DO [address] [place] [address] 03/23/2025 1:35 PM EST Office Visit [facility] [address] [place] [address] Shira Tan MD [address] [place] [address] 10/20/2025 11:00 AM EDT Office Visit [facility] [address] [place] [address] Cliff Hong PA [address] [place] [address] documented as of this encounter Procedures Procedure Name Priority Date/Time Associated Diagnosis Comments PATHOLOGY REPORT Routine 05/05/2024 8:01 AM EST documented in this encounter Results * Pathology Report (05/05/2024 8:01 AM EST) Other us Taiwo Rosa MD LAB PATHOLOGY ORDERABLES Final Result documented in this encounter Visit Diagnoses Not on filedocumented in this encounter Additional Health Concerns Assessment Noted Time PHQ-9 Depression Total Score: 0 02/27/20 24 11:00 AM EST documented as of this encounter Care Teams Broomcorn Thresher Relationship Specialty Start Date End Date Moustapha De Leon MD [address] [place] [phone] PCP - General Family Medicine 11/08/23 Stephanie Peters OD [address] [place] [address] Referring Physician Optometry 11/08/23 Lynsey Ortiz NP [address] [place] [address] Nurse Practitioner Family Medicine 11/13/23 07/14/24 Delmi Love NP [address] [place] [address] Nurse Practitioner Family Medicine 07/15/24 documented as of this encounter
--- OUTSIDE RECORDS SUMMARY | 2024-10-20 10:26 | XMS_ITS | Encounter Summary ---
Author Organization [employer] Address [id number] [place] [address] Care Team Providers Care Guide Tour Name Role Phone Jose David Morton DO Primary Care Provider [phone] Reason for Visit * Reason Comments Med Refill Encounter Details Date Type Department Care Team (Late st Contact Info) Description 06/19/2022 Refill [facility] [address] [place] [address] Jessica Penn, PA-C [address] [facility] [address] [place] [address] Nasal congestion Social History Tobacco Use Types Packs/Day Years [...] encounter Miscellaneous Notes * Telephone Encounter - WAN Zarco - 06/19/2022 6:45 PM EST Informed patient that prescription would only be filled for 30 days and that Jessica Penn PA-C would like her to follow up with her PCP for refills. Patient verbalized understanding. documented in this encounter Plan of Treatment Upcoming Encounters Date Type Department Care Team (Late st Contact Info) Description 02/16/2025 1:10 PM EST Office Visit [facility] [address] [place] [address] Mike Jules MD [address] [place] [address] documented as of this encounter Visit Diagnoses Diagnosis Nasal congestion Other diseases of nasal cavity and sinuses documented in this encounter Additional Health Concerns Assessment Noted Time PHQ-9 Depression Total Score: 0 05/23/19 22 10:51 AM EST documented as of this encounter Care Teams Guide Tour Relationship Specialty Start Date End Date Jose David Morton DO PCP - General Family Medicine 04/01/20 documented as of this encounter
--- OUTSIDE RECORDS SUMMARY | 2024-10-20 10:26 | XMS_ITS | Encounter Summary ---
Author Organization [facility] Address [address] [place] [address] Care Team Providers Care Steaming Machine Operator Name Role Phone Stephanie Peters OD Unavailable Moustapha De Leon MD Primary Care Provider [phone] Delmi Love NP Unavailable [phone] Encounter Details Date Type Department Care Team (Latest Contact Info) Description 10/14/2024 Travel Social History Tobacco Use Types Packs/Day [...] week 11/12/2023 How often do you attend anglican or catholic serv ices? Patient declined 11/12/2023 Do you belong to any clubs o r organizations such as anglican groups, unions, fraternal or athletic groups, or [...] Recorded Patient Health Questionnaire-2 Score 0 02/27/2024 [facility] - [...] time in the past 12 m [facility], were you homeless or living in a fpc (including now)? No 11/12/2023 Comments No Sex [...] [facility] [address] [place] [address] Delmi Love NP [address] [place] [address] 01/20/2025 1:30 PM EDT Office Visit [facility] [address] [place] [phone] Panda Campos DO [address] [place], [place] [id number] 03/23/2025 1:35 PM EST Office Visit [facility] [address] [place] [address] Shira Tan MD [address] [place] [address] 10/20/2025 11:00 AM EDT Office Visit [facility] [address] [place] [address] Cliff Hong PA [address] [facility] [address] [place] [address] documented as of this encounter Visit Diagnoses Not on filedocumented in this encounter Additional Health Concerns Assessment Noted Time PHQ-9 Depression Total Score: 0 02/27/20 24 11:00 AM EST documented as of this encounter Care Teams Steaming Machine Operator Relationship Specialty Start Date End Date Moustapha De Leon MD [address] [place] [address] PCP - General Family Medicine 11/08/23 Stephanie Peters OD [address] [place] [address] Referring Physician Optometry 11/08/23 Delmi Love NP [address] [place] [address] Nurse Practitioner Family Medicine 07/15/24 documented as of this encounter
--- OUTSIDE RECORDS SUMMARY | 2024-10-20 10:26 | XMS_ITS | Continuity of Care Document ---
Author Organization [facility] Address [address] [place] [address] Problems Unknown Problems Results Test Value / Unit Interpretation Reference Ran ge SARS-CoV-2 (COVID-19), RT-PC R/TMA[[id number]] Collected: 05/27/2020 03:48 PM Specimen Received: 05/28/2020 07:48 PM SARS-CoV-2 INTERPRETATION [[id number]] Negative Erika l See Note SARS-CoV-2 RNA NOT DETECTEDN egative results do not preclude SARS-CoV-2 infection and should notbe used as the sole basis for patient management decisions. Negativeresults must be combined with clinical observations, patient history,and epidemiological information. Optimum specimen types and timingfor peak viral levels during infections caused by SARS-CoV-2 have notbeen determined. Collection of multiple specimens or types ofspecimens may be necessary to detect virus. Improper specimencollection and handling, sequence variability under primers/probes,or organism present below the limit of detection may lead to falsenegative results. Positive and negative predictive values oftesting are highly dependent on prevalence. False negative testresults are more likely when prevalence is high. SOURCE [[id number]] NASOPHARYNGEAL Normal Note: Methodology is Viry BAUNATas Real-Time RT-PCR. The expected result or reference range is NEGATIVE (Not Detected). For more information regarding COVID-19 testing to include clinicalinformation, methodology detail, intended use, FDA authorization andrecommended fact sheets for patients or healthcare providers, see NewTest Announcement: SARS-CoV-2 (COVID-19) by NAAT at URL below (note,fact sheets are provided by method given in report:[email or web address]/client-communications/ Alternatively, see downloadable PDF fact sheet at:[email or web address]-PCR Allergies, adverse reactions, alerts No known allergies and adverse reactions Medications No administered medications reported Vital Signs No vital signs reported Social History No smoking Hx information available
--- OUTSIDE RECORDS SUMMARY | 2024-10-20 10:28 | XMS_ITS | Encounter Summary ---
Author Organization [facility] Address [address] [place] [address] Care Team Providers Care Telecommunications Technician Name Role Phone Praveen Jose David Mclean MD Primary Care Provider [phone] Shaikh TIFFANIE Portillo Primary Care Provider [phone] Stephanie Peters OD Unavailable Moustapha De Leon MD Primary Care Provider [phone] Lynsey Ortiz WINDOW SHADE RING SEWER Unavailable [phone] Delmi Love WINDOW SHADE RING SEWER Unavailable [phone] Encounter Details Date Type Department Care Team (Late st Contact Info) Description 04/01/2023 Clinisync Result Encounter [facility] External Department Unsolicited Shaikh Portillo MD [address] [place] [address] Social History Tobacco Use Types Packs/Day Years Used Date Smoking Tobacco: Every Day Cigarettes Smokeless Tobacco: Never Alcohol Use Standard Drinks/Week Comments Never 0 (1 standard drink = 0.6 oz pur e alcohol) Comments Unknown Sex and Gender Information Value Date Recorded Sex Assigned at Not on file Legal Sex Female 7:30 PM EDT Gender Identity Not on file Sexual Orientation Not on file COVID-19 Exposure Response Date Recorded In the last 10 days, have yo margarita been in contact with someone who was confirmed or suspected to have Coronavirus/COVID-19? No / Unsure 03/11/2023 8:46 AM EST documented as of this encounter Plan of Treatment Upcoming Encounters Date Type Department Care Team (Late st Contact Info) Description 11/09/2024 3:00 PM EDT Office Visit [facility] [address] [place] [address] Delmi Love NP [address] [place] [address] 01/20/2025 1:30 PM EDT Office Visit [facility] [address] [place] [address] Panda Campos DO [address] [place] [address] 03/23/2025 1:35 PM EST Office Visit [facility] [address] [place] [address] Shira Tan MD [address] [place] [address] 10/20/2025 11:00 AM EDT Office Visit [facility] [address] [place] [address] Cliff Hong PA [address] [facility] [address] [place] [address] documented as of this encounter Procedures Procedure Name Priority Date/Time Associated Diagnosis Comments MM TOMOSYNTHESIS SCREENING BI 04/01/2023 2:27 PM EST documented in this encounter Results * MM TOMOSYNTHESIS SCREENING BI (04/01/2023 2:27 PM EST) Anatomical Region Laterality Modality Other 04/01/2023 2:27 PM EST Narrative 04/01/2023 2:28 PM EST The [address] [address] Mammography Report Signed Patient: Bertha Galarza MR#: [id number] : 1950 Acct:[id number] Age/Sex: 72 / F ADM Date: 04/01/23 Loc: MAMMO Attending Dr: Shaikh Bandar Killian Ordering Physician: Shaikh Maria D Portillo Results: Date of Service: 04/01/23 Follow Up: Procedure(s): MM tomosynthesis screening BI Accession Number(s): [id number] cc: Shaikh Maria D Portillo Patient Name: BERTHA GALARZA MR#: [id number] : 1950 Exam Date: 04/01/2023 Ordering Doctor: SHAIKH Love Deshpande RADIOLOGY REPORT PROCEDURE: MM TOMOSYNTHESIS SCREENING BI COMPARISON: MG MAMM SCREEN 3D RABIA CAD, 03/21/2021. MG MAMM SCREEN 3D RABIA CAD, 03/29/2022. INDICATIONS: Screening Calculator Name NCI Breast Cancer Risk Assessment Tool 5 Year Breast Cancer Risk n/a% Lifetime Breast Cancer Risk n/a% Personal Breast Cancer Yes, Left breast cancer 2006 Personal Ovarian Cancer No Treatments Lumpectomy, radiation, and chemotherapy Family Cancers Father with lung cancer at age 51; Sister with colon cancer at age 54. LOCATION: The [facility] BREAST COMPOSITION: Scattered areas fibroglandular density. FINDINGS: DIAGNOSTIC CATEGORY 2--BENIGN FINDING. NO CHANGE FROM COMPARISON. Scattered benign-appearing lymph nodes are present. RIGHT BREAST: No significant suspicious finding. LEFT BREAST: No significant suspicious finding. Stable area of architectural distortion with coarse calcifications lower inner quadrant, posterior breast RECOMMENDATIONS: ROUTINE MAMMOGRAM AND CLINICAL EVALUATION IN 12 MONTHS. PLEASE NOTE: A NORMAL MAMMOGRAM DOES NOT EXCLUDE THE POSSIBILITY OF BREAST CANCER. A CLINICALLY SUSPICIOUS PALPABLE LUMP SHOULD BE BIOPSIED. Dictated by: Naseem Kan MD on 04/01/2023 at 14:25 Approved by: Naseem Kan MD on 04/01/2023 at 14:27 Dictated By: Naseem Kan M.D. Signed By: 04/01/23 1428 DD/ 1427 TD/TT: Radio Tester: Procedure Note Radiology, Radiologist, - 04/01/2023 [place] [address] Mammography Report Signed Patient: Bertha Galarza AMR#: [id number] : 1950cct:[id number] Age/Sex: 72 / FADM Date: 04/01/23 Loc: MAMMO Attending Dr: Shaikh Bandar Killian Ordering Physician: Shaikh Maria D PortilloResults: Date of Service: 04/01/23Follow Up: Procedure(s): MM tomosynthesis screening BI Accession Number(s): [id number] cc: Shaikh Maria D Portillo Patient Name: BERTHA GALARZA MR#: [id number] : 1950 Exam Date: 04/01/2023 Ordering Doctor: SHAIKH Love Deshpande RADIOLOGY REPORT PROCEDURE: MM TOMOSYNTHESIS SCREENING BI COMPARISON: MG MAMM SCREEN 3D RABIA CAD, 03/21/2021. MG MAMM SCREEN 3DBIL CAD, 03/29/2022. INDICATIONS: Screening Calculator Name NCI Breast Cancer Risk Assessment Tool 5 Year Breast Cancer Risk n/a% Lifetime Breast Cancer Risk n/a% Personal Breast Cancer Yes, Left breast cancer 2006 Personal Ovarian Cancer No Treatments Lumpectomy, radiation, and chemotherapy Family Cancers Father with lung cancer at age 51; Sister with coloncancer at age 54. LOCATION: The [facility] BREAST COMPOSITION: Scattered areas fibroglandular density. FINDINGS: DIAGNOSTIC CATEGORY 2--BENIGN FINDING. NO CHANGE FROM COMPARISON.Scattered benign-appearing lymph nodes are present. RIGHT BREAST: No significant suspicious finding. LEFT BREAST: No significant suspicious finding. Stable area ofarchitectural distortion with coarse calcifications lower inner quadrant, posteriorbreast RECOMMENDATIONS: ROUTINE MAMMOGRAM AND CLINICAL EVALUATION IN 12 MONTHS. PLEASE NOTE: A NORMAL MAMMOGRAM DOES NOT EXCLUDE THE POSSIBILITY OFBREAST CANCER. A CLINICALLY SUSPICIOUS PALPABLE LUMP SHOULD BE BIOPSIED. Dictated by: Naseem Kan MD on 04/01/2023 at 14:25 Approved by: Naseem Kan MD on 04/01/2023 at 14:27 Dictated By: Naseem Kan M.D. Signed By:04/01/23 1428 DD/ 1427 TD/TT: Radio Tester: us Shaikh Bandar [facility] Final Result documented in this encounter Visit Diagnoses Not on filedocumented in this encounter Care Teams Telecommunications Technician Relationship Specialty Start Date End Date Jose David Morton MD [address] [place] [address] PCP - General Family Medicine 10/11/22 09/02/23 Shaikh Portillo MD [address] [place] [address] PCP - General Internal Medicine 09/03/23 11/07/23 Moustapha De Leon MD [address] [place] [address] PCP - General Family Medicine 11/08/23 Stephanie Peters OD [address] [place] [address] Referring Physician Optometry 11/08/23 Lynsey Ortiz NP [address] [place] [address] Nurse Practitioner Family Medicine 11/13/23 07/14/24 Delmi Love NP [address] [place] [address] Nurse Practitioner Family Medicine 07/15/24 documented as of this encounter
--- OUTSIDE RECORDS SUMMARY | 2024-10-20 10:28 | XMS_ITS | Encounter Summary ---
Author Organization [facility] Address [address] [place] [address] Care Team Providers Care Label Press Operator Name Role Phone Stephanie Peters OD Unavailable Moustapha De Leon MD Primary Care Provider [phone] Lynsey Rinaldi PRODUCTION AIDE Unavailable [phone] Delmi Love PRODUCTION AIDE Unavailable [phone] Encounter Details Date Type Department Care Team (Late st Contact Info) Description 11/28/2023 Clinisync Result Encounter [facility] External Department Unsolicited [...] week 11/12/2023 How often do you attend jainism or mormon serv ices? Patient declined 11/12/2023 Do you belong to any clubs o r organizations such as jainism groups, unions, fraternal or athletic groups, or [...] Date Recorded Patient Health Questionnaire-2 Score 0 11/18/2023 [facility] - Occupational [...] were you homeless or living in a halfway (including now)? No 11/12/2023 Comments Unknown Sex and Gender Information Value Date Recorded Sex Assigned at Not on file Legal Sex Female 7:30 PM EDT Gender Identity Not on file Sexual Orientation Not on file documented as of this encounter Plan of Treatment Upcoming Encounters Date Type Department Care Team (Late st Contact Info) Description 11/09/2024 3:00 PM EDT Office Visit [facility] [address] [place] [address] Delmi Love NP [address] [place] [address] 01/20/2025 1:30 PM EDT Office Visit [facility] [address] [place] [address] Panda Campos DO [address] [place], [place] [address] 03/23/2025 1:35 PM EST Office Visit [facility] [address] [place] [address] Shira Tan MD [address] [place] [address] 10/20/2025 11:00 AM EDT Office Visit [facility] [address] [place] [address] Cliff Hong PA [address] [facility] 150 [place] [address] [phone] (work) documented as of this encounter Procedures Procedure Name Priority Date/Time Associated Diagnosis Comments CA ECHO DOPPLER COMPLETE 11/28/2023 7:21 PM EDT documented in this encounter Results * CA ECHO DOPPLER COMPLETE (11/28/2023 7:21 PM EDT) Anatomical Region Laterality Modality Other 11/28/2023 7:21 PM EDT Narrative 11/28/2023 7:22 PM EDT [place] [id number] Cardiology Report Signed Patient: BERTHA GALARZA MR#: [id number] : 1950 Acct:[id number] Age/Sex: 73 / F ADM Date: 11/28/23 Loc: CARD Attending Dr: LYNSEY RINALDI Ordering Physician: LYNSEY RINALDI Date of Service: 11/28/23 Procedure(s): CA echo doppler complete Accession Number(s): [id number] cc: LYNSEY RINALDI Patient Name: BERTHA GALARZA MR#: [id number] : 1950 Exam Date: 11/28/2023 Ordering Doctor: LYNSEY RINALDI ECHOCARDIOGRAM REPORT PROCEDURE: CA ECHO DOPPLER COMPLETE INDICATIONS: Shortness of breath on exertion, smoker, h/o breast cancer- chemo and radiation COMPARISON: None. DESCRIPTION: COMPLETE ECHOCARDIOGRAM Real-time transthoracic echocardiography with 2D, M-mode, spectral and color flow Doppler performed. QUALITY: Technical quality was good. LEFT VENTRICLE: Normal chamber size. Normal left ventricular wall thickness. Systolic function is at the lower limits of normal. LV EF: Estimated ejection fraction is 50%. DIASTOLIC: Normal diastolic function. ATRIAL SEPTUM: Visually appears intact. LEFT ATRIUM: Normal chamber size. RIGHT ATRIUM: Normal chamber size. RIGHT VENTRICLE: Normal chamber size. Normal right ventricular systolic function. TRICUSPID VALVE: Normal mobility and thickness. No stenosis with no regurgitation. MITRAL VALVE: Mildly thickened with normal mobility. No evidence of mitral valve stenosis. There is no mitral annular calcification. No mitral regurgitation. AORTIC VALVE: Normal trileaflet appearance. No visible sclerosis. Normal leaflet mobility. No evidence of aortic valve stenosis. No aortic regurgitation. AORTIC ROOT: Normal diameter and appearance. PULMONIC VALVE: Not well visualized. No stenosis. No regurgitation. PERICARDIUM: No evidence of pericardial effusion. IVC: Collapses with inspirations. PLEURA: CONCLUSION: 1. Left ventricle is normal in size and exhibits low normal systolic function. LVEF is estimated at 50%. 2. Normal right ventricular size and systolic function. 3. No significant valvular dysfunction. 4. Normal diastolic function. 5. No pericardial effusion. Adult Echocardiography Procedure Report Left Ventricle LVEDD (3.7 - 5.6 cm): 4.04 cm LVESD (2.2 - 4.0 cm): 3.17 cm LVIVS thickness (0.6 - 1.2 cm): 0.85 cm LVPW thickness (0.5 - 1.0 cm): 0.86 cm e': 0.07 m/s E - e': 9.69 LVOT Max Gradient: 3.07 mm[Hg] LVOT Area (cm2): 0.88 m/s Peak Velocity (LVOT): 0.88 m/s Mean Velocity (LVOT): 0.62 m/s LVOT Diameter 2.02 cm Left Atrium LA Volume Index (2D A2C): 26.01 ml/m2 Left Atrium Systolic Dimension: 2.97 cm Mitral Valve MV E to A Ratio: 0.51 Mitral Valve A-Wave Peak Velocity: 1.27 m/s Mitral Valve E-Wave Peak Velocity: 0.64 m/s Right Ventricle Aorta AO Root Diam: 3.56 cm Aortic Valve AoV Area (Peak Hesham): 2.35 cm2, 2.35 cm2 AoV Area (VTI): 2.35 cm2, 2.35 cm2 Peak Velocity(Antegrade Flow): 1.19 m/s Peak Gradient(Antegrade Flow): 5.67 mm[Hg] Mean Velocity(Antegrade Flow): 0.89 m/s Mean Gradient(Antegrade Flow): 3.50 mm[Hg] Velocity Time Integral: 26.36 cm Tricuspid Valve Pulmonic Valve Mean Gradient: 2.28 mm[Hg] Mean Velocity: 0.70 m/s Peak Velocity: 1.13 m/s, 1.05 m/s Peak Gradient: 5.12 mm[Hg], 4.43 mm[Hg] Right Atrium Right Atrium Systolic Pressure: 31.92 ml, 31.92 ml Dictated by: Trixie Harris M.D. on 11/28/2023 at 19:17 Approved by: Trixie Harris M.D. on 11/28/2023 at 19:21 Dictated By: TRIXIE HARRIS Signed By: 11/28/231921 DD/ 20 TD/TT: Director Funeral: Procedure Note Radiology, Radiologist, MD - 11/28/2023 [place] [address] Cardiology Report Signed Patient: BERTHA GALARZA AMR#: [id number] : 1950cct:[id number] Age/Sex: 73 / FADM Date: 11/28/23 Loc: CARD Attending Dr: LYNSEY RINALDI Ordering Physician: LYNSEY RINALDI Date of Service: 11/28/23 Procedure(s): CA echo doppler complete Accession Number(s): [id number] cc: LYNSEY RINALDI Patient Name: BERTHA GALARZA MR#: [id number] : 1950 Exam Date: 11/28/2023 Ordering Doctor: LYNSEY RINALDI ECHOCARDIOGRAM REPORT PROCEDURE: CA ECHO DOPPLER COMPLETE INDICATIONS: Shortness of breath on exertion, smoker, h/o breastcancer- chemo and radiation COMPARISON: None. DESCRIPTION: COMPLETE ECHOCARDIOGRAM Real-time transthoracic echocardiography with 2D, M-mode, spectral and color flow Dopplerperformed. QUALITY: Technical quality was good. LEFT VENTRICLE: Normal chamber size. Normal left ventricular wall thickness. Systolic function is at the lower limits of normal. LV EF: Estimated ejection fraction is 50%. DIASTOLIC: Normal diastolic function. ATRIAL SEPTUM: Visually appears intact. LEFT ATRIUM: Normal chamber size. RIGHT ATRIUM: Normal chamber size. RIGHT VENTRICLE: Normal chamber size. Normal right ventricularsystolic function. TRICUSPID VALVE: Normal mobility and thickness. No stenosis with no regurgitation. MITRAL VALVE: Mildly thickened with normal mobility. No evidence of mitral valve stenosis. There is no mitral annular calcification. Nomitral regurgitation. AORTIC VALVE: Normal trileaflet appearance. No visible sclerosis.Normal leaflet mobility. No evidence of aortic valve stenosis. No aortic regurgitation. AORTIC ROOT: Normal diameter and appearance. PULMONIC VALVE: Not well visualized. No stenosis. No regurgitation. PERICARDIUM: No evidence of pericardial effusion. IVC: Collapses with inspirations. PLEURA: CONCLUSION: 1. Left ventricle is normal in size and exhibits low normal systolicfunction. LVEF is estimated at 50%. 2. Normal right ventricular size and systolic function. 3. No significant valvular dysfunction. 4. Normal diastolic function. 5. No pericardial effusion. Adult Echocardiography Procedure Report Left Ventricle LVEDD (3.7 - 5.6 cm): 4.04 cm LVESD (2.2 - 4.0 cm): 3.17 cm LVIVS thickness (0.6 - 1.2 cm): 0.85 cm LVPW thickness (0.5 - 1.0 cm): 0.86 cm e': 0.07 m/s E - e': 9.69 LVOT Max Gradient: 3.07 mm[Hg] LVOT Area (cm2): 0.88 m/s Peak Velocity (LVOT): 0.88 m/s Mean Velocity (LVOT): 0.62 m/s LVOT Diameter 2.02 cm Left Atrium LA Volume Index (2D A2C): 26.01 ml/m2 Left Atrium Systolic Dimension: 2.97 cm Mitral Valve MV E to A Ratio: 0.51 Mitral Valve A-Wave Peak Velocity: 1.27 m/s Mitral Valve E-Wave Peak Velocity: 0.64 m/s Right Ventricle Aorta AO Root Diam: 3.56 cm Aortic Valve AoV Area (Peak Hesham): 2.35 cm2, 2.35 cm2 AoV Area (VTI): 2.35 cm2, 2.35 cm2 Peak Velocity(Antegrade Flow): 1.19 m/s Peak Gradient(Antegrade Flow): 5.67 mm[Hg] Mean Velocity(Antegrade Flow): 0.89 m/s Mean Gradient(Antegrade Flow): 3.50 mm[Hg] Velocity Time Integral: 26.36 cm Tricuspid Valve Pulmonic Valve Mean Gradient: 2.28 mm[Hg] Mean Velocity: 0.70 m/s Peak Velocity: 1.13 m/s, 1.05 m/s Peak Gradient: 5.12 mm[Hg], 4.43 mm[Hg] Right Atrium Right Atrium Systolic Pressure: 31.92 ml, 31.92 ml Dictated by: Trixie Harris M.D. on 11/28/2023 at 19:17 Approved by: Trixie Harris M.D. on 11/28/2023 at 19:21 Dictated By: TRIXIE HARRIS Signed By:11/28/231921 DD/ 20 TD/TT: Director Funeral: Lynsey Rinaldi PRODUCTION AIDE [facility] Final Result documented in this encounter Visit Diagnoses Not on filedocumented in this encounter Care Teams Label Press Operator Relationship Specialty Start Date End Date Moustapha De Leon MD [address] [place] [address] PCP - General Family Medicine 11/08/23 Stephanie Petres OD [facility] [place] [address] Referring Physician Optometry 11/08/23 Lynsey Rinaldi NP [address] [place] [address] Nurse Practitioner Family Medicine 11/13/23 07/14/24 Delmi Love NP [address] [place] [address] Nurse Practitioner Family Medicine 07/15/24 documented as of this encounter
--- OUTSIDE RECORDS SUMMARY | 2024-10-20 10:28 | XMS_ITS | Encounter Summary ---
Author Organization [facility] Address [address] [place] [address] Care Team Providers Care Rolloff Driver Name Role Phone Stephanie Peters OD Unavailable Moustapha De Leon MD Primary Care Provider [phone] Lynsey Rinaldi SCRUB WHEEL OPERATOR Unavailable [phone] Delmi Love SCRUB WHEEL OPERATOR Unavailable [phone] Encounter Details Date Type Department Care Team (Late st Contact Info) Description 11/19/2023 Clinisync Result Encounter [facility] External Department Unsolicited [...] week 11/12/2023 How often do you attend confucianist or judaism serv ices? Patient declined 11/12/2023 Do you belong to any clubs o r organizations such as confucianist groups, unions, fraternal or athletic groups, or [...] Recorded Patient Health Questionnaire-2 Score 0 11/18/2023 [facility] - Occupational [...] a prison (including now)? No 11/12/2023 Comments Unknown Sex [...] Office Visit [facility] [address] [place] [address] Delmi Love NP [address] [place] [address] 01/20/2025 1:30 PM EDT Office Visit [facility] [address] [place] [address] Panda Campos DO [address] [place], [place] [address] 03/23/2025 1:35 PM EST Office Visit [facility] [address] [place] [address] Shira Tan MD [address] [place] [address] 10/20/2025 11:00 AM EDT Office Visit [facility] [address] [place] [address] Cliff Hong PA 112 [facility] 150 [place] [address] [phone] (work) documented as of this encounter Procedures Procedure Name Priority Date/Time Associated Diagnosis Comments ECG 12-LEAD 11/19/2023 10:39 AM EDT documented in this encounter Results * ECG 12-LEAD (11/19/2023 10:39 AM EDT) Anatomical Region Laterality Modality Other 11/19/2023 10:3 9 AM EDT Narrative 11/19/2023 10:27 [place] [address] Electrocardiograph Report Signed Patient: BERTHA GALARZA MR#: [id number] : 1950 Acct:[id number] Age/Sex: 73 / F ADM Date: 11/19/23 Loc: CARD Attending Dr: LYNSEY RINALDI Ordering Physician: LYNSEY RINALDI Date of Service: 11/19/23 Procedure(s): ECG 12 lead Accession Number(s): [id number] cc: [facility] Test Date: 2023-11-19 Pat Name: BERTHA GALARZA Department: Room: - Gender: Female Pipe Foreman: : 1950 Requested By: 7 Order Number: [id number] Reading MD: STAR FRANK Measurements Intervals [place] Rate: 75 P: 73 SD: 146 QRS: -80 QRSD: 131 T: 46 QT: 392 QTc: 438 Interpretive Statements SINUS RHYTHM RIGHT BUNDLE BRANCH BLOCK [120+ ms QRS DURATION, UPRIGHT V1, 40+ ms S IN I/aVL/V4/V5/V6] LEFT ANTERIOR FASCICULAR BLOCK [QRS AXIS <= -45, QR IN I, RS IN II] INFERIOR MYOCARDIAL INFARCTION [40+ ms Q WAVE AND/OR ST/T ABNORMALITY IN II/aVF], OF INDETERMINATE AGE No previous ECG available for comparison Electronically Signed On 11-19-2023 22:27:07 EDT by STAR FRANK Dictated By: Star Frank D.O. Signed By: 11/19/23222611/19/232226 DD/ 103 TD/TT: Full Time Staff Interpreter: Procedure Note Radiology, Radiologist, - 11/19/[address] [address] Electrocardiograph Report Signed Patient: BERTHA GALARZA AMR#: [id number] : 1950cct:[id number] Age/Sex: 73 / FADM Date: 11/19/23 Loc: CARD Attending Dr: LYNSEY RINALDI Ordering Physician: LYNSEY RINALDI Date of Service: 11/19/23 Procedure(s): ECG 12 lead Accession Number(s): [id number] cc: The [facility] Test Date: 2023-11-19 Pat Name: BERTHA GALARZA Department: Room: - Gender: Female Pipe Foreman: : 1950 Requested By: [id number] Order Number: [id number] Reading MD: STAR FRANK Measurements Intervals [place] Rate: 75 P: 73 SD: 146 QRS: -80 QRSD: 131 T: 46 QT: 392 QTc: 438 Interpretive Statements SINUS RHYTHM RIGHT BUNDLE BRANCH BLOCK [120+ ms QRS DURATION, UPRIGHT V1, 40+ ms S IN I/aVL/V4/V5/V6] LEFT ANTERIOR FASCICULAR BLOCK [QRS AXIS <= -45, QR IN I, RS IN II] INFERIOR MYOCARDIAL INFARCTION [40+ ms Q WAVE AND/OR ST/T ABNORMALITY IN II/aVF], OF INDETERMINATE AGE No previous ECG available for comparison Electronically Signed On 11-19-2023 22:27:07 EDT by STAR FRANK Dictated By: Star Frank D.O. Signed By:11/19/23222611/19/232226 DD/ 1039 TD/TT: Full Time Staff Interpreter: Lynsey Rinaldi SCRUB WHEEL OPERATOR [facility] Final Result documented in this encounter Visit Diagnoses Not on filedocumented in this encounter Care Teams Rolloff Driver Relationship Specialty Start Date End Date Moustapha De Leon MD [address] [place] [address] PCP - General Family Medicine 11/08/23 Stephanie Peters OD [address] [facility] [place] [address] Referring Physician Optometry 11/08/23 Lynsey Rinaldi NP [address] [place] [address] Nurse Practitioner Family Medicine 11/13/23 07/14/24 Delmi Love NP [address] [place] [address] Nurse Practitioner Family Medicine 07/15/24 documented as of this encounter
--- OUTSIDE RECORDS SUMMARY | 2024-10-20 10:28 | XMS_ITS | Encounter Summary ---
Author Organization [facility] Address [address] [place] [address] Care Team Providers Care Electronics Processing Supervisor Name Role Phone Stephanie Peters OD Unavailable Moustapha De Leon MD Primary Care Provider [phone] Lynsey Ortiz SENIOR QUALITY ANALYST Unavailable Delmi Love NP Unavailable [phone] Encounter Details Date Type Department Care Team (Late st Contact Info) Description 11/19/2023 Abstract [facility] [address] [place] [address] Lynsey Ortiz NP Social History Tobacco Use [...] week 11/12/2023 How often do you attend uatsdin or alevism serv ices? Patient declined 11/12/2023 Do you belong to any clubs o r organizations such as uatsdin groups, unions, fraternal or athletic groups, or [...] Recorded Patient Health Questionnaire-2 Score 0 11/18/2023 [facility] - [...] medical appointments or from getting medications? No 07/3 In the past 12 months, has l [...] any time in the past 12 m [facility], were you homeless or living in a penitentiary (including now)? No 11/12/2023 Comments Unknown Sex [...] Office Visit [facility] [address] [place] [address] Delmi Love NP [address] [place] [address] 01/20/2025 1:30 PM EDT Office Visit [facility] [address] [place] [address] Panda Campos DO [address] [place] [address] 03/23/2025 1:35 PM EST Office Visit [facility] [address] [place] [address] Shira Tan MD [address] [place] [address] 10/20/2025 11:00 AM EDT Office Visit [facility] [address] [place] [address] Hong, Cliff J, PA [address] [place] [address] documented as of this encounter Visit Diagnoses Not on filedocumented in this encounter Care Teams Electronics Processing Supervisor Relationship Specialty Start Date End Date Moustapha De Leon MD [address] [place] [address] PCP - General Family Medicine 11/08/23 Stephanie Peters OD [address] [facility] [place] [address] Referring Physician Optometry 11/08/23 Lynsey Ortiz NP [address] [place] [address] Nurse Practitioner Family Medicine 11/13/23 07/14/24 Delmi Love NP [address] [place] [address] Nurse Practitioner Family Medicine 07/15/24 documented as of this encounter
--- OUTSIDE RECORDS SUMMARY | 2024-10-20 10:28 | XMS_ITS | Encounter Summary ---
Author Organization [facility] Address [address] [place] [address] Care Team Providers Care Center Medical Specialist Name Role Phone Stephanie Peters OD Unavailable Moustapha De Leon MD Primary Care Provider [phone] Delmi Love NP Unavailable [phone] Encounter Details Date Type Department Care Team (Late st Contact Info) Description 09/01/2024 Results Follow-Up [facility] [address] [place] [address] Social History Tobacco Use Types Packs/Day Years [...] week 11/12/2023 How often do you attend mormonism or mormonism serv ices? Patient declined 11/12/2023 Do you belong to any clubs o r organizations such as mormonism groups, unions, fraternal or athletic groups, or [...] Recorded Patient Health Questionnaire-2 Score 0 02/27/2024 [facility] - Occupational Stress Questionnaire Answer [...] any time in the past 12 m [facility], were you homeless or [...] Visit [facility] [address] [place] [address] Delmi Love NP [address] [place] [address] 01/20/2025 1:30 PM EDT Office Visit [facility] [address] [place] [address] Panda Campos DO [address] [place] [address] 03/23/2025 1:35 PM EST Office Visit [facility] [address] [place] [address] Shira Tan MD [address] [place] [address] 10/20/2025 11:00 AM EDT Office Visit [facility] [address] [place] [address] Cliff Hong PA [address] [facility] 150 [place] [address] documented as of this encounter Visit Diagnoses Not on filedocumented in this encounter Additional Health Concerns Assessment Noted Time PHQ-9 Depression Total Score: 0 02/27/20 24 11:00 AM EST documented as of this encounter Care Teams Center Medical Specialist Relationship Specialty Start Date End Date Moustapha De Leon MD [address] [place] [address] PCP - General Family Medicine 11/08/23 Stephanie Peters OD [address] [place] [address] Referring Physician Optometry 11/08/23 Delmi Love NP [address] [place] [address] Nurse Practitioner Family Medicine 07/15/24 documented as of this encounter
--- OUTSIDE RECORDS SUMMARY | 2024-10-20 10:28 | XMS_ITS | Encounter Summary ---
Author Organization [facility] Address [address] [place] [address] Care Team Providers Care Crm Technical Lead Name Role Phone Praveen Jose David Mclean MD Primary Care Provider [phone] Shaikh TIFFANIE Portillo Primary Care Provider [phone] Stephanie Peters OD Unavailable Moustapha De Leon MD Primary Care Provider [phone] Lynsey Ortiz WALLPAPER PRINTER HELPER Unavailable Delmi Love WALLPAPER PRINTER HELPER Unavailable [phone] Encounter Details Date Type Department Care Team (Late Contact Info) Description 04/17/2023 Orders Only [facility] [address] [place] [address] Shaikh Portillo MD [address] [place] [address] Social History Tobacco Use Types Packs/Day Years [...] Department Care Team (Late Contact Info) Description 11/09/2024 3:00 PM EDT Office Visit [facility] [address] [place] [address] Delmi Love NP [address] [place] [address] 01/20/2025 1:30 PM EDT Office Visit [facility] [address] [place] [address] Panda Campos, DO [address] [place] [address] 03/23/2025 1:35 PM EST Office Visit [facility] [address] [place] [address] Shira Tan MD [address] [place] [address] 10/20/2025 11:00 AM EDT Office Visit [facility] [address] [place] [address] Cliff Hong PA [address] [facility] 150 [place] [address] documented as of this encounter Procedures Procedure Name Priority Date/Time Associated Diagnosis Comments MISCELLANEOUS LAB TEST Routine 04/01/2023 3:54 PM EST documented in this encounter Results * - Miscellaneous Test (04/01/2023 3:54 PM EST) us Shaikh Bandar [facility] BLOOD ORDERABLES Final Resu lt documented in this encounter Visit Diagnoses Not on filedocumented in this encounter Care Teams Crm Technical Lead Relationship Specialty Start Date End Date Jose David Morton MD [address] [place] [address] PCP - General Family Medicine 10/11/22 09/02/23 Shaikh Portillo MD [address] [place] [address] PCP - General Internal Medicine 09/03/23 11/07/23 Moustapha De Leon MD [address] [place] [address] PCP - General Family Medicine 11/08/23 Stephanie Peters OD [facility] [place] [address] Referring Physician Optometry 11/08/23 Lynsey Ortiz NP [address] [place] [address] Nurse Practitioner Family Medicine 11/13/23 07/14/24 Delmi Love NP [address] [place] [address] Nurse Practitioner Family Medicine 07/15/24 documented as of this encounter
--- OUTSIDE RECORDS SUMMARY | 2024-10-20 10:28 | XMS_ITS | Encounter Summary ---
Author Organization [facility] Address [address] [place] [address] Care Team Providers Care Manager Process Excellence Name Role Phone Stephanie Peters OD Unavailable Moustapha De Leon MD Primary Care Provider [phone] Lynsey Ortiz BUTTON SEWER Unavailable Delmi Love NP Unavailable [phone] Encounter Details Date Type Department Care Team (Late st Contact Info) Description 03/04/2024 Abstract [facility] [address] [place] [address] Lynsey Ortiz NP Social History Tobacco Use [...] week 11/12/2023 How often do you attend shinto or scientologist serv ices? Patient declined 11/12/2023 Do you belong to any clubs o r organizations such as shinto groups, unions, fraternal or athletic groups, or [...] Recorded Patient Health Questionnaire-2 Score 0 02/27/2024 [facility]at ional Health - [...] any time in the past 12 m [facility], were you homeless or living in a [...] Office Visit [facility] [address] [place] [address] Delmi Love NP [address] [place] [address] 01/20/2025 1:30 PM EDT Office Visit [facility] [address] [place] [address] Panda Campos DO [address] [place] [address] 03/23/2025 1:35 PM EST Office Visit [facility] [address] [place] [address] Shira Tan MD [address] [place] [address] 10/20/2025 11:00 AM EDT Office Visit [facility] [address] [place] [address] Hong, Cliff J, PA [address] [place] [address] documented as of this encounter Visit Diagnoses Not on filedocumented in this encounter Additional Health Concerns Assessment Noted Time PHQ-9 Depression Total Score: 0 02/27/20 24 11:00 AM EST documented as of this encounter Care Teams Manager Process Excellence Relationship Specialty Start Date End Date Moustapha De Leon MD [address] [place] [address] PCP - General Family Medicine 11/08/23 Stephanie Peters OD [address] [place] [address] Referring Physician Optometry 11/08/23 Lynsey Ortiz NP [address] [place] [address] Nurse Practitioner Family Medicine 11/13/23 07/14/24 Delmi Love NP [address] [place] [address] Nurse Practitioner Family Medicine 07/15/24 documented as of this encounter
--- OUTSIDE RECORDS SUMMARY | 2024-10-20 10:28 | XMS_ITS | Encounter Summary ---
Author Organization [facility] Address [address] [place] [address] Care Team Providers Care Manager Tax Name Role Phone Stephanie Peters OD Unavailable Moustapha De Leon MD Primary Care Provider [phone] Delmi Love EPIDEMIOLOGY INTERNSHIP Unavailable [phone] Encounter Details Date Type Department Care Team (Late st Contact Info) Description 09/04/2024 Orders Only [facility] [address] [place] [address] Delmi Love, JADE [address] [place] [address] Social History Tobacco Use Types Packs/Day Years [...] How often do you attend judaism or yazidi serv ices? Patient declined 11/12/2023 [...] Recorded Patient Health Questionnaire-2 Score 0 02/27/2024 [facility] - Occupational Stress Questionnaire Answer Date Recorded [...] any time in the past 12 m [facility], were you homeless or living in a [facility]p (including now)? No 11/12/2023 Comments No Sex [...] Office Visit [facility] [address] [place] [address] Delmi Love NP [address] [place] [address] 01/20/2025 1:30 PM EDT Office Visit [facility] [address] [place] [address] Panda Campos DO [address] [place] [address] 03/23/2025 1:35 PM EST Office Visit [facility] [address] [place] [address] Shira Tan MD [address] [place] [address] 10/20/2025 11:00 AM EDT Office Visit [facility] [address] [place] [address] Cliff Hong, PA [address] [facility] [place] [address] [place] [address] documented as of this encounter Visit Diagnoses Not on filedocumented in this encounter Additional Health Concerns Assessment Noted Time PHQ-9 Depression Total Score: 0 02/27/20 24 11:00 AM EST documented as of this encounter Care Teams Manager Tax Relationship Specialty Start Date End Date Moustapha De Leon MD [address] [place] [address] PCP - General Family Medicine 11/08/23 Stephanie Peters OD [address] [facility] [place] [address] Referring Physician Optometry 11/08/23 Delmi Love NP [address] [place] [address] Nurse Practitioner Family Medicine 07/15/24 documented as of this encounter
--- OUTSIDE RECORDS SUMMARY | 2024-10-20 10:28 | XMS_ITS | Encounter Summary ---
Author Organization [facility] Address [address] [place] [address] Care Team Providers Care Pullman Car Repairer Name Role Phone Stephanie Peters OD Unavailable Moustapha De Leon MD Primary Care Provider [phone] Delmi Love NP Unavailable [phone] Encounter Details Date Type Department Care Team (Late st Contact Info) Description 09/01/2024 Results Follow-Up [facility] [address] [place] [address] Social History Tobacco Use Types [...] week 11/12/2023 How often do you attend yazdanism or sabianist serv ices? Patient declined 11/12/2023 Do you belong to any clubs o r organizations such as yazdanism groups, unions, fraternal or athletic groups, or [...] Recorded Patient Health Questionnaire-2 Score 0 02/27/2024 [facility] Occupat ional [facility] - Occupational Stress Questionnaire Answer Date Recorded [...] any time in the past 12 m [facility], were you homeless or living in a [...] [facility] [address] [place] [address] Delmi Love NP [address] [place] [address] 01/20/2025 1:30 PM EDT Office Visit [facility] [address] [place] [address] Panda Campos DO [address] [place] [address] 03/23/2025 1:35 PM EST Office Visit [facility] [address] [place] [address] Shira Tan MD [address] [place] [address] 10/20/2025 11:00 AM EDT Office Visit [facility] [address] [place] [address] Cliff Hong PA [address] [facility] 150 [place] [address] documented as of this encounter Visit Diagnoses Not on filedocumented in this encounter Additional Health Concerns Assessment Noted Time PHQ-9 Depression Total Score: 0 02/27/20 24 11:00 AM EST documented as of this encounter Care Teams Pullman Car Repairer Relationship Specialty Start Date End Date Moustapha De Leon MD [address] [place] [address] PCP - General Family Medicine 11/08/23 Stephanie Peters OD [address] [place] [address] Referring Physician Optometry 11/08/23 Delmi Love NP [address] [place] [address] Nurse Practitioner Family Medicine 07/15/24 documented as of this encounter
--- OUTSIDE RECORDS SUMMARY | 2024-10-20 10:28 | XMS_ITS | Clinical Summary ---
Author Organization [facility] Address [address] [place] [address] Care Team Providers Care Drawer In Dobby Loom Name Role Phone House Sr., Jose David HARTMAN Caridad Primary Care Provider + Allergies Active Allergy Reactions Criticality Noted Date Comments Penicillins Rash 12/18/2012 Medications SIMVASTATIN ORAL Take 1 tablet by mouth daily at bedtime. Active LEVOTHYROXINE SODIUM (SYNTHROID ORAL) Take 1 tablet by mouth once daily. Active atorvastatin (LIPITOR) 20 mg tablet 10/27/2015 Active acyclovir (ZOVIRAX) 400 mg tablet 12/20/2015 Active levothyroxine (SYNTHROID) 100 mcg tablet 12/03/2015 Active nitrofurantoin monohydrate and macrocrystal (MACROBID) 100 mg capsule 11/30/2015 Active Active Problems Problem Noted Date Diagnosed Date Personal history of malignant neoplasm of breast 12/18/2013 Breast cancer 12/05/2012 Social History Tobacco Use Types Packs/Day Years Used Date Smoking Tobacco: Every Day Smokeless Tobacco: Never Alcohol Use Standard Drinks/Week Comments No 0 (1 standard drink = 0.6 oz pur e alcohol) Comments Unknown Sex and Gender Information Value Date Recorded Sex Assigned at Not on file Legal Sex Female 10:12 AM EST Gender Identity Not on file Sexual Orientation Not on file Last Filed Vital Signs Vital Sign Reading Time Taken Comments Blood Pressure 109/70 12/22/2015 11:30 AM EDT Pulse 80 12/22/2015 11:30 AM EDT Temperature 36.7 C (98 F) 12/22/2015 11:30 AM EDT Respiratory Rate 16 12/22/2015 11:30 AM EDT Oxygen Saturation - - Inhaled Oxygen Concentration - - Weight 81.5 kg (179 lb 9.6 oz) 12/23/2014 10:42 AM EDT Height 165.1 cm (5' 5 ) 12/22/2015 11:30 AM EDT verified Body Mass Index 29.89 12/23/2014 10:42 AM EDT Plan of Treatment Health Maintenance Due Date Last Done Comments Anxiety Screening 1969 Depression Screening 1969 Hepatitis C Screening 1969 DTaP,Tdap,Td Vaccine (1 - Tdap) [address] Colonography 1996 Cologuard (FIT-DNA) 1996 Colonoscopy 1996 Colorectal Cancer Screening 1996 Diabetes Screening 1996 Fecal Occult Blood 1996 Lipid Screening 1996 Sigmoidoscopy 1996 Pneumococcal Vaccine: 50+ (1 of 1 - PCV) 2001 Shingrix Vaccine (1 of 2) 2001 Bone Density Screening 2016 Covid-19 Vaccine ( - 2023- season) 2023 Advance Directive Discussion 04/15/2024 Influenza Vaccine (#1) 2024 RSV Vaccine (1 - 1-dose 75+ series) 2026 Insurance MEDICARE Care Teams Drawer In Dobby Loom Relationship Specialty Start Date End Date Jose David Morton Sr., DO PCP - General Family Medicine 07/12/11
[2024-10-20 11:35] LABS: Cholesterol 152 mg/dL (<=200); HDL Cholesterol 50 mg/dL (40-60); Triglycerides 351 mg/dL (<=150); VLDL CHOLESTEROL 70.2 mg/dL
== END 2024-10-20 10:23 | disposition home or self-care (01) ==
LOC: LAB 10:23
PROVIDERS: PCP Nurse Practitioner
DX: E78.2 Mixed hyperlipidemia (principal)
CPT/HCPCS: 36415; 80061

== ENCOUNTER 2024-10-30 06:40 | Outpatient (OUT) | payer MEDICARE, SELFPAY ==
--- NOTE | 2024-10-30 | NM_ITS ---
Patient Name: YAIR GALARZA MR#: [id number] : 1950 Exam Date: 10/30/2024 Ordering Doctor: BRIGITTE SCHMITT RADIOLOGY REPORT PROCEDURE: NM UNA PERF SPECT REST STR COMPARISON: None. INDICATIONS: CHEST PAIN TECHNIQUE: Exam Description: Stress/Rest one day protocol gated SPECT Rest Imagin.0 mCi Tc-99m Cardiolite IV on 10/30/2024 Stress Imaging 30.7 mCi Tc-99m Cardiolite IV on 10/30/2024 Exercise Protocol: 0.4 mg Lexiscan given IV Heart Rate (bpm): Rest: 73 Max: 93 PMHR: 63 Blood Pressure: Rest: 128/78 Max: 136/78 Symptoms: Rest and peak stress ECG findings were pending and the EKG portion of the study was pending per attending physician [facility] . For more details please see separate cardiac stress test report. FINDINGS: QUALITY OF STUDY: Good PERFUSION DEFECT: LOCATION: Anterior and apical SIZE: Medium SEVERITY: Mild TYPE: Fixed with appropriate thickening and contractility consistent with breast attenuation artifact WALL MOTION: Normal LV SIZE: 69 mL. TID / TCD: 1.0 LVEF: Calculated EF 64%. SUMMARY: Normal myocardial perfusion imaging study CONCLUSION: Normal myocardial perfusion stress study without evidence of ischemia or infarction Normal left ventricular systolic function, ejection fraction 64% No transient ischemic dilatation, TID 1.0 EKG portion of stress test is reported separately Dictated by: Irina Young MD on 11/01/2024 at 18:31 Approved by: Irina Young MD on 11/01/2024 at 18:34
--- OUTSIDE RECORDS SUMMARY | 2024-10-30 06:42 | XMS_ITS | CCD ---
Author Organization [facility] Care Team Providers Care Drop Worker Name Role Phone DO Jose David Godwin Primary Care Provider DO Jose David Godwin Attending Provider [phone] DO Trixie Gr Jr Other Provider [phone] Yuliet Perez Unavailable DO Jose David Godwin Primary Care Provider [phone] LUANN Perez Attending Provider SHAIKH Lorelei ENGEL Admitting Unavailable SHAIKH Lorelei ENGEL Attending Unavailable SHAIKH Lorelei ENGEL Primary Care Unavailable HOLLAND, DR KARI Stern Consulting Unavailable SHAIKH Lorelei ENGEL Consulting Unavailable SERAFINA, DR GARDINER Admitting Unavailable CITLALI, DR GARDINER Attending Unavailable SERAFINA, DR GARDINER Primary Care Unavailable SERAFINA, DR GARDINER Consulting Unavailable SERAFINA, DR GARDINER Admitting Unavailable SERAFINA, DR GARDINER Attending Unavailable SERAFINA, DR GARDINER Primary Care Unavailable HOLLAND, DR KARI Stern Consulting Unavailable SERAFINA, DR GARDINER Consulting Unavailable Jose David Godwin MD Primary Care Provider Stephanie Peters OD Unavailable Moustapha De Leon MD Primary Care Provider [phone] Diana HANSEN, Kuanl Unavailable Moe MORENO, Taiwo Lakhani Attending Provider Diana HOTEL DESK CLERK-CKunal Primary Care Provid er Kate HOTEL DESK CLERK, Delmi Unavailable Jose David Godwin DO Primary Care Provider MIKE GANT Attending Unavailable RUSHER, DARIEN S Referring Unavailable HOUSE, JOSE DAVID P Primary Care Unavailable HOUSE, JOSE DAVID P Referring Unavailable HOUSE, JOSE DAVID P Primary Care Unavailable Yuliet Perez APRN Attending Provider [phone] Taiwo Rosa Admitting Unavailable Taiwo Rosa Attending Unavailable OrtizKunal alexandre N Primary Care Unavaila Yuliet Ruelas Admitting Unavailable Yuliet Perez Attending Unavailable DANDY CORREA Attending Unavailable ORTIZ, KUNAL Attending Unavailabl e RUSHER, DARIEN Perry Attending Unavailable RUSHER, DARIEN S Referring Unavailable AICHHOLZ, DELMI Attending Unavailable RUSHER, DARIEN S Referring Unavailable AICHHOLZ, DELMI Attending Unavailable YOUNESMIKE Referring Unavailable AICHHOLZ, DELMI Attending Unavailable AICHHOLZ, DELMI Referring Unavailable BEJ, JAMIA Jenkins Attending Unavailable AICHHOLZ, DELMI Referring Unavailable RUSHER, DARIEN Perry Attending Unavailable MIRANDA, AME Lakhani Attending Unavailable AME HONG Referring Unavailable ZAHLDANDY HENRIQUEZ Attending Unavailable ORTIZ, KUNAL Attending Unavailabl e ORTIZ, KUNAL Referring Unavailabl e ORTIZ, KUNAL Attending Unavailabl e BEN ROE Attending Unavailable ORTIZ, KUNAL Attending Unavailabl e PETITTIBENJAMIN Attending Unavailable AICHHOLZ, DELMI Attending Unavailable OSKARBRIGITTE Attending Unavailable ALGHOTHANI, JULIO CESAR Attending Unavailable ALGHOTHANI, JULIO CESAR Attending Unavailable Allergies Allergy Classification Reported Allergen(s) Allergy Type Date of Onset Reaction(s) Facility (1 source) Penicillin G Drug Allergy rash [facility] Other (1 source) Penicillin Drug Allergy 09-24-19 20 [facility] Repository (20 sources) Penicillins; Translations: [PENICILLINS] Drug Allergy 12-19-19 13 Hives, Itching, Rash [facility] (20 sources) atorvastatin; Translations: [ATORVASTATIN] Drug Allergy 12-04-19 24 Other [facility] Healthcare (3 sources) atorvastatin Drug Allergy 08-12-19 [facility] (3 sources) Penicillins Propensity to adverse reactions to drug 12-19-19 13 Rash [facility] (1 source) Penicillin Drug Allergy 09-11-19 [facility] Repository Medications Current Medications Medication Drug Class(es) Dates Sig (Normalized) Sig (Original) [id number] 200 actuat albuterol 0.09 mg/actuat metered dose inhaler (16 sources) beta2-Adrenergic Agonist Start: 04-13-2024 End: 07-16-2024 take 2 puff(s) by inhalation every six hours for wheezing albuterol HFA 90 mcg/act inhaler Indications: Acute URI Inhale 2 puffs every 6 (six) hours if needed for wheezing or shortness of breath 18 g 04/13/2024 07/16/2024 Discontinued (Therapy completed) aspirin 81 mg delayed release oral tablet (20 sources) Platelet Aggregation Inhibitor, Nonsteroidal Anti-inflammatory Drug Start: 08-12-2024 End: 11-10-2024 take 1 tablet by mouth once daily aspirin 81 MG EC tablet Indications: Hyperlipidemia, unspecified hyperlipidemia type Take 1 tablet (81 mg) by mouth Daily 90 tablet 3 08/12/2024 11/10/2024 Active Start: 04-20-2024 take 1 capsule by mouth once d aily Aspirin 81 mg capsule Active 81 MG PO Daily April 20, 2024 1:00am atorvastatin 20 mg oral tablet (3 sources) HMG-CoA Reductase Inhibitor Start: 01-08-2020 take 0.5 tablet by mouth in the morning atorvastatin (LIPITOR) 20 mg tablet Take 0.5 tablets (10 mg total) by mouth in the morning. 01/08/2020 Active Start: 01-08-2020 take 10 mg by mouth once daily atorvastatin (LIPITOR) 20 mg tablet Take 10 mg by mouth daily. 01/08/2020 Active B Complex-C (b complex-vitamin c) tablet (10 sources) take 1 tablet by mouth in the morning B Complex-C (b complex-vitamin c) tablet Take 1 tablet by mouth in the morning. Active B-complex with vitamin C tablet (1 source) take 1 tablet by mouth in the morning B-complex with vitamin C tablet Take 1 tablet by mouth in the morning. Active carbamide peroxide 65 mg/ml otic solution (2 sources) Start: 12-19-2023 End: 12-23-2023 carbamide peroxide (Debrox) 6.5 % otic solution Indications: Impacted cerumen of left ear Administer 3-5 drops into affected ear(s) in the morning and 3-5 drops before bedtime. Do all this for 4 days. 15 mL 12/19/2023 12/23/2023 Active cholecalciferol 0.125 mg oral tablet (20 sources) Vitamin D Start: 08-19-2024 End: 11-17-2024 take 1 tablet by mouth once daily cholecalciferol (Vitamin D-3) 125 MCG (5000 UT) tablet Indications: Vitamin D deficiency Take 1 tablet (125 mcg) by mouth Daily 90 tablet 08/19/2024 11/17/2024 Active Start: 08-12-2024 End: 11-10-2024 take 1 capsule by mouth once daily cholecalciferol (Vitamin D-3) 125 MCG (5000 UT) capsule Indications: Vitamin D deficiency Take 1 capsule (125 mcg) by mouth Daily 90 capsule 1 08/12/2024 08/19/2024 Discontinued (Cost of medication) Start: 08-12-2024 End: 11-10-2024 take 1 capsule by mouth in the morning cholecalciferol, vitamin D3, (VITAMIN D3) 5,000 units capsule Take 1 capsule (5,000 Units total) by mouth in the morning. 08/12/2024 11/10/2024 Active Start: 06-07-2024 End: 07-07-2024 take 1 tablet by mouth once daily cholecalciferol (Vitamin D-3) 125 MCG (5000 UT) tablet Indications: Vitamin D deficiency Take 1 tablet (125 mcg) by mouth Daily 30 tablet 1 06/07/2024 07/07/2024 Active End: 08-12-2024 take 1 capsule by mouth once daily cholecalciferol (Vitamin D-3) 125 MCG (5000 UT) capsule Take 5,000 Units by mouth Daily 08/12/2024 Discontinued (Reorder) clindamycin 15 mg/ml oral solution (3 sources) Lincosamide Antibacterial Start: 05-25-2020 clindamycin (CLEOCIN PEDIATRIC) 15 mg/mL solution Take 10 mL TID x 10 days 300 mL 05/25/2020 Active docosahexaenoic acid 120 mg / eicosapentaenoic acid 180 mg oral capsule (20 sources) Start: 02-24-2024 End: 02-23-2025 take 1 capsule by mouth at bedtime fish oil concentrate (Nome-3) 1000 MG capsule Indications: Mixed hyperlipidemia (CMS/HCC) Take 2 capsules (2 g) by mouth in the morning and 2 capsules (2 g) before bedtime. 120 capsule 3 07/24/2024 08/23/2024 Active doxycycline hyclate 100 mg oral tablet [...] nasal spray (20 sources) Corticosteroid Start: 06-20-2022 take 1 spray(s) nasal route in the morning fluticasone propionate (FLONASE) 50 mcg/actuation nasal spray Indications: Nasal congestion Administer 1 spray into each nostril in the morning. 15.8 mL 2 06/20/2022 Active Start: 06-20-2022 End: 07-16-2024 take 1 spray(s) nasal route in the morning fluticasone (Flonase) 50 MCG/ACT nasal spray Indications: Epiretinal membrane (ERM) of both eyes Administer 1 spray into each nostril in the morning. 16 g 3 03/02/2024 07/16/2024 Discontinued (Therapy completed) Flonase Active Q-Pzbqjzlcezco-Qpiha-B12-B6 (Metanx) 3-90.314-2-35 MG capsule (20 sources) Start: 07-15-2024 End: 10-13-2024 take 1 capsule by mouth in the morning V-Adylicmrwypq-Umpnc-B12-B6 (Metanx) 3-90.314-2-35 MG capsule Indications: Neuropathy, idiopathic , Neuritis Take 3 mg by mouth in the morning and 3 mg before bedtime. 180 capsule 3 07/15/2024 10/13/2024 Active levothyroxine sodium 0.075 m g oral tablet (20 sources) l-T hyr oxi ne Start: 11-21-2023 End: 02-16-2025 take 1 tablet by mouth before mealtime levothyroxine (Synthroid) 75 MCG tablet Indications: Hypothyroidism, unspecified type Take 1 tablet (75 mcg) by mouth in the morning. Take before meals. 90 tablet 1 08/12/2024 11/10/2024 Active Start: 01-08-2020 take 1 tablet by richard th in the morning levothyroxine (SYNTHROID, LEVOTHROID) 100 MCG tablet Take 1 tablet (100 mcg total) by mouth in the morning. 01/08/2020 Active take 1 tablet by richard th in the morning levothyroxine (Tirosint) 100 MCG capsule Take 1 tablet by mouth in the morning. 0 Active Levothyroxine So dium 100 MCG Orally Active nicotine 2 mg oral lozenge (11 sources) Cholinergic Nicotinic Agonist Start: 08-18-2024 take 2 mg by mouth (buccal) every four hours as needed nicotine polacrilex (Commit) [address] 2 mg into mouth between cheek and gum every 4 (four) hours if needed 08/18/2024 Active nitrofurantoin, macrocrystals 25 mg / nitrofurantoin, monohydrate 75 mg oral capsule (3 sources) Nitrofuran Antibacterial Start: 09-14-2024 End: 09-21-2024 take 1 capsule by mouth in the morning nitrofurantoin, macrocrystal-mon ohydrate, (Macrobid) 100 MG capsule Indications: UTI symptoms Take 1 capsule (100 mg) by mouth in the morning and 1 capsule (100 mg) before bedtime. Do all this for 7 days. 14 capsule 09/14/2024 09/21/2024 Active Start: 09-10-2024 take 1 capsule by mo [facility] every twelve hours at mealtime Nitrofurantoin Monohyd/M-Cryst (Macrobid) 100 mg capsule Active 100 MG PO Every 12 hours 14 September 10, 2024 12:00am must administer with a meal/food ofloxacin 3 mg/ml otic solution (4 sources) Quinolone Antimicrobial Start: 07-16-2024 End: 07-23-2024 ofloxacin (Floxin) 0.3 % otic solution Indications: Acute otitis externa of left ear, unspecified type Administer 10 drops into the left ear Daily for 7 days 10 mL 07/16/2024 07/23/2024 Active omega 1-ihq-onv-fish oil (Fish OiL) 1,000 (120-180) mg capsule (1 source) take 1 capsule by mouth in the morning omega 0-nqa-asc-fish oil (Fish OiL) 1,000 (120-180) mg capsule Take 1 capsule by mouth in the morning. Active Nome 1-Dut-Qrg-Fish Oil (Fish Oil) 100-160-1,000 mg capsule (3 sources) Start: 04-20-2024 take 100-160 capsules by mouth twice daily Nome 2-Nia-Hap-Fish Oil (Fish Oil) 100-160-1,000 mg capsule Active 2 CAP PO Twice daily April 20, 2024 1:00am Start: 04-20-2024 take 100-160 capsule s by mouth twice daily Nome 1-Pwe-Yjc-Fish Oil (Fish Oil) 100-160-1,000 mg capsule Active 2 CAP PO Twice daily April 20, 2024 12:00am omeprazole 20 mg delayed release oral capsule (7 sources) Proton Pump Inhibitor Start: 04-20-2024 take 1 capsule by mouth once daily as needed Omeprazole 20 mg capsule,delayed release(DR/EC) Active 20 MG PO Daily as needed for heart burn April 20, 2024 1:00am Medication Name: Omeprazole; Note: Source Status: Taking; Provider: Chris Horvath ( ) Start: 05-13-2020 take 1 tablet by richard th once daily omeprazole (PriLOSEC OTC) 20 mg tablet,delayed release (DR/EC) Take 1 tablet (20 mg total) by mouth daily. 30 each 05/13/2020 Active Omeprazole Activ e prednisoLONE 3 mg/ml oral solution (3 sources) Corticosteroid Start: 05-25-2020 take 10 mL by mouth once daily prednisoLONE (PRELONE) 15 mg/5 mL syrup Take 10 mL PO QD x 5 days 50 mL 05/25/2020 Active predniSONE 20 mg oral tablet (2 sources) [...] sources) HMG-CoA Reductase Inhibitor Start: 11-19-2023 End: 11-10-2024 take 1 tablet by mouth in the evening rosuvastatin (Crestor) 40 MG tablet Indications: Hyperlipidemia, unspecified hyperlipidemia type Take 1 tablet (40 mg) by mouth in the evening 90 tablet 1 08/12/2024 11/10/2024 Active Start: 10-28-2022 rosuvastatin ( Crestor) 10 MG tablet sulfamethoxazole 800 mg / trimethoprim 160 mg oral tablet (1 source) Dihydrofolate Reductase Inhibitor Antibacterial, Sulfonamide Antimicrobial Start: 11-26-2021 take 1 tablet by mouth every twelve hours Bactrim DS 800-160 MG 1 tablet Orally Twice a day for 7 day(s) Nov, Active thioctic acid 200 mg oral capsule (20 sources) Start: 07-17-2024 End: 01-12-2025 take 1 capsule by mouth in the morning Alpha Lipoic Acid 200 MG capsule Indications: Neuropathy, idiopathic , Neuritis Take 200 mg by mouth in the morning and 200 mg before bedtime. 180 capsule 10/14/2024 01/12/2025 Active varenicline (3 sources) Partial Cholinergic Nicotinic Agonist Start: 06-13-2020 varenicline (CHANTIX STARTING MONTH BOX) 0.5 mg (11)- 1 mg (42) tablet Indications: Smoking Take 0.5 mg one daily on days 1-3 and 0.5 mg twice daily on days 4-7. Then 1 mg twice daily for a total of 12 weeks. 53 tablet 06/13/2020 Active Completed/Discontinued Medications Medication Drug Class(es) Dates Sig (Normalized) Sig (Original) montelukast 10 mg oral tablet (20 sources) Leukotriene Receptor Antagonist Start: 10-15-2022 End: 08-12-2024 montelukast (Singulair) 10 MG tablet 10/15/2022 08/12/2024 Discontinued (Therapy completed) Problems Active Problems Problem Classification Problem Date Documented Date Episodic/Chronic Cancer of breast (20 sources) Malignant tumor of breast ; Translations: [Malignant neoplasm of unspecified site of unspecified female breast] Onset: 12-05-2012 04-13-2024 Chronic Conduction disorders (2 sources) Unspecified right bundle-branch block; Translations: [Unspecified right bundle-branch block] Onset: 10-19-2024 Chronic Disorders of lipid metabolism (20 sources) Hyperlipidemia, unspecified; Translations: [Hypertriglyceridemia ] Onset: 07-07-2022 11-18-2023 Chronic Immunizations and screening for infectious disease (2 sources) Needs influenza immunization; Translations: [Encounter for immunization] 02-27-2024 Episodic Malaise and fatigue (20 sources) Fatigue; Translations: [Other fatigue] Onset: 08-12-2024 08-12-2024 Episodic Neoplasms of unspecified nature or uncertain behavior (2 sources) Neoplasm of uncertain behavior of skin; Translations: [Neoplasm of uncertain behavior of skin] 02-13-2024 Episodic Nonspecific chest pain (13 sources) Chest pain; Translations: [Other chest pain] Onset: 09-24-2024 09-24-2024 Episodic Nutritional deficiencies (20 sources) Vitamin D deficiency; Translations: [Vitamin D deficiency, unspecified] Onset: 06-07-2024 06-07-2024 Chronic Osteoarthritis (1 source) Arthritis of first carpometacarpal joint of right hand; Translations: [Unilateral primary osteoarthritis of first carpometacarpal joint, right hand] 05-24-2023 Chronic Osteoporosis (20 sources) Senile osteoporosis; Translations: [Age-related osteoporosis without current pathological fracture] Onset: 06-07-2024 04-21-2024 Chronic Other acquired deformities (8 sources) Acquired spondylolisthesis; Translations: [Spondylolisthesis, lumbosacral region] Onset: 09-29-2024 09-29-2024 Episodic Other and unspecified benign neoplasm (2 [...] [Pain in right foot] 02-13-2024 Episodic Other connective tissue disease (5 sources) Inflammatory neuropathy ; Translations: [Neuralgia and neuritis, unspecified] 07-15-2024 Episodic Other connective tissue disease (2 sources) Pain in both feet; Translations: [Pain in right foot] 07-15-2024 Episodic Other connective tissue disease (2 sources) Pain in left foot; Translations: [Pain in left foot] 10-14-2024 Episodic Other lower respiratory disease (2 sources) Other forms of dyspnea; Translations: [Other forms of dyspnea] Onset: 10-19-2024 Episodic Other nervous system disorders (5 sources) Neuropathy; Translations: [Hereditary and idiopathic neuropathy, unspecified] 07-15-2024 Chronic Other nervous system disorders (1 source) Polyneuropathy; Translations: [Polyneuropathy, unspecified] 10-13-2024 Chronic Other nervous system disorders (20 sources) Paresthesia of foot ; Translations: [Anesthesia of skin] Onset: 08-12-2024 08-12-2024 Episodic Other nervous system disorders (1 source) Numbness; Translations: [Anesthesia of skin] 10-13-2024 Episodic Other nervous system disorders (1 source) Paresthesia; Translations: [Paresthesia of skin] 10-13-2024 Episodic Other screening for suspected conditions (not mental disorders or infectious disease) (20 sources) Encounter for screening mammogram for malignant neoplasm of breast; Translations: [Patient encounter status] Onset: 03-29-2022 Resolved: 09-24-2024 Episodic Other skin disorders (2 sources) Seborrheic keratosis; Translations: [Other seborrheic keratosis] 03-23-2024 Episodic Other skin disorders (2 sources) Lentiginosis; Translations: [Other melanin hyperpigmentation] 03-23-2024 Episodic Other skin disorders (2 sources) Callosity; Translations: [Corns and callosities] 10-14-2024 Episodic Peripheral and visceral atherosclerosis (8 sources) Peripheral vascular disease; Translations: [Peripheral vascular disease, unspecified] 07-15-2024 Chronic Residual codes; unclassified (2 sources) Edema of lower extremity; Translations: [Localized edema] 08-18-2024 Episodic Residual codes; unclassified (1 source) Localized edema; Translations: [Localized edema] Onset: 08-18-2024 Episodic Residual codes; unclassified (1 source) Pain, unspecified; Translations: [Pain, unspecified] Onset: 08-12-2024 Episodic Retinal detachments; defects; vascular occlusion; and retinopathy (20 sources) Bilateral epiretinal membrane of eyes; Translations: [Puckering of macula, bilateral] Onset: 11-08-2023 11-08-2023 Chronic Spondylosis; intervertebral disc disorders; other back problems (8 sources) Cervical spondylosis; Translations: [Spondylosis without myelopathy or radiculopathy, cervical region] Onset: 09-29-2024 09-29-2024 Chronic Spondylosis; intervertebral disc disorders; other back problems (20 sources) Low back pain; Translations: [Lumbar back pain] Onset: 09-24-2024 09-24-2024 Episodic Substance-related disorders (20 sources) Tobacco dependence syndrome; Translations: [Nicotine dependence, unspecified, uncomplicated] Onset: 04-13-2024 04-13-2024 Chronic Thyroid disorders (20 sources) Hypothyroidism, unspecified; Translations: [Hypothyroidism] Onset: 02-06-2022 Chronic Unclassified (3 sources) LOW BACK PAIN, UNSPECIFIED; Translations: [LOW BACK PAIN, UNSPECIFIED] Onset: 07-07-2022 Unclassified (3 sources) Smoker; Translations: [Smoking] Onset: 06-13-2020 06-13-2020 Unclassified (1 source) New Patient Onset: 08-18-2024 Viral infection (2 sources) Verruca plantaris; Translations: [Plantar wart] 02-13-2024 Episodic Past or Other Problems Problem Classification Problem Date Documented Da te Episodic/Chronic Cancer of breast (20 sources) History of malignant neoplasm of breast; Translations: [Personal history of malignant neoplasm of breast] Onset: 12-18-2013 04-13-2024 Episodic Cataract (20 sources) After-cataract of bilateral eyes; Translations: [Other secondary cataract, bilateral] Onset: 11-08-2023 Resolved: 05-25-2024 11-08-2023 Chronic Diabetes mellitus without complication (20 sources) Prediabetes; Translations: [Prediabetes] Onset: 12-19-2023 12-19-2023 Episodic Genitourinary symptoms and ill-defined conditions (14 sources) Dysuria; Translations: [Urinary symptoms ] Onset: 11-26-2021 Resolved: 09-24-2024 Episodic Inflammation; infection of eye (except that caused by tuberculosis or sexually transmitteddisease) (20 sources) Blepharitis of upper and lower eyelids of bilateral eyes; Translations: [Unspecified blepharitis right eye, upper and lower eyelids] Onset: 05-25-2024 Resolved: 09-24-2024 05-25-2024 Episodic Mood disorders (20 sources) Mood disorders Onset: 05-23-2021 Resolved: 02-27-2024 02-27-2024 Other ear and sense organ disorders (20 sources) Impacted cerumen in left ear; Translations: [Impacted cerumen, left ear] Onset: 12-19-2023 Resolved: 09-24-2024 12-19-2023 Episodic Other ear and sense organ disorders (20 sources) Acute otitis externa of left ear; Translations: [Unspecified acute noninfective otitis externa, left ear] Onset: 07-16-2024 Resolved: 09-24-2024 07-16-2024 Episodic Other eye disorders (20 sources) Dry eyes; Translations: [Dry eye syndrome of bilateral lacrimal glands] Onset: 11-08-2023 11-08-2023 Episodic Other gastrointestinal disorders (20 sources) Stool DNA-based colorectal cancer screening positive; Translations: [Other fecal abnormalities] Onset: 03-26-2024 03-26-2024 Episodic Other upper respiratory disease (20 sources) Lesion of vocal cord; Translations: [Other diseases of vocal cords] Onset: 03-24-2020 04-13-2024 Episodic Other upper respiratory disease (3 sources) Hoarse; Translations: [Dysphonia] Onset: 03-24-2020 03-24-2020 Episodic Other upper respiratory disease (3 sources) Nasal congestion; Translations: [Nasal congestion] Onset: 05-23-2021 05-23-2021 Episodic Other upper respiratory infections (20 sources) Acute upper respiratory infection; Translations: [Acute upper respiratory infection, unspecified] Onset: 04-13-2024 Resolved: 07-16-2024 04-13-2024 Episodic Residual codes; unclassified (1 source) Family history of malignant neoplasm of trachea, bronchus and lung; Translations: [FAM HX MALIG NEOPLSM TRACH BRON LNG] Onset: 04-03-2022 Episodic Residual codes; unclassified (1 source) Family history of malignant neoplasm of digestive organs; Translations: [[facility] NEOPLASM DIGESTIV ORGN] Onset: 04-03-2022 Episodic Residual codes; unclassified (19 sources) Family history of coronary arteriosclerosis; Translations: [Family history of ischemic heart disease and other diseases of the circulatory system] Onset: 08-12-2024 Resolved: 09-24-2024 08-12-2024 Episodic Unclassified (1 source) LOW BACK PAIN, UNSPECIFIED; Translations: [LOW BACK PAIN, UNSPECIFIED] Onset: 07-03-2022 Unclassified (1 source) Patient encounter status 03-26-2024 Urinary tract infections (20 sources) Acute cystitis with hematuria; Translations: [Cystitis] Onset: 11-26-2021 Resolved: 04-13-2024 Episodic Results Test Name Value Interpretation Reference Range Facility ALL LIPID PROFILE (FASTING)o n 10-20-2024 CHOL HDL RATIO 3 [facility] Comment on above: 3.3 - 4.4 LOW RISK 4.4 - 7.1 AVERAGE RISK 7.1 - 11.0 MODERATE RISK >11.0 HIGH RISK Cholesterol [Mass/Vol] 152 mg/dL NINF - 200 mg/dL [facility] Cholesterol in HDL [Mass/Vol] 50 mg/dL 40 - 60 mg/dL [facility] Comment on above: > or =60 mg/dl - LOW CARDIOVASCULAR RISK <40 mg/dl - HIGH CARDIOVASCULAR RISK Interpretation and review of laboratory results [facility] Magnesium [Mass/Vol] 32 mg/dL [facility] Comment on above: <100 mg/dl OPTIMAL 100-129 mg/dl NEAR OR ABOVE OPTIMAL 130-159 mg/dl BORDERLINE HIGH 160-189 mg/dl HIGH >190 mg/dl VERY HIGH Magnesium [Mass/Vol] 70.2 mg/dL [facility] Triglyceride [Mass/Vol] 351 mg/dL High NINF - 150 mg/dL [facility] Follow-up visit [id number] Bertha Galarza 1950 F Date Provider Department [facility] 10[facility]19[id number] History Problem Relation Age of Onset Coronary artery disease Mother Coronary artery disease Sister Coronary artery disease Brother Family Status - Relation Status Age at Mother Sister Brother Level of Service:[id number] [place] OFFICE/OUTPATIENT ESTABLISHED MOD MDM 30 MIN Normal [facility] XR CERVICAL SPINE 2-3 VIEWSo n 09-28-2024 XR CERVICAL SPINE 2-3 VIEWS Title of exam: XR CERVICAL SPINE 2-3 [...] report is generated using voice recognition reporting (Matchbook). On occasion, [employer] erroneously drops words from the report or replaces the spoken word with a similar sounding word. Please call with any questions/concerns regarding the report. Normal Not Available XR LUMBAR SPINE 2-3 VIEWSon 09-28-2024 XR LUMBAR SPINE 2-3 VIEWS Title of exam: XR LUMBAR SPINE 2-3 [...] report is generated using voice recognition reporting (Matchbook). On occasion, [employer] erroneously drops words from the report or replaces the spoken word with a similar sounding word. Please call with any questions/concerns regarding the report. Dictated on: 09/28/2024 1:06 PM 09/28/2024 9:36 AM This report has been electronically signed and approved by the interpreting Radiologist. Normal Not Available Urine Cultureon 09-10-2024 Bacteria identified Cx Nom (U) ORGANISM: Escherichia coli (O:ESCCOL) [place] Count >100,000 Aerobic ALMA Charge (NMIC56) ---- SUSCEPTIBILITY --- ORGANISM: O:ESCCOL ANTIBIOTIC INTERPRETATION [place] Amikacin S <16 Amoxacillin/K Clavulanate S <8 Ampicillin S <8 Ampicillin/Sulbactam S <4 Aztreonam S <4 Cefazolin S <2 Cefepime S <2 Ceftazidime S <1 Ceftazidime/Avibactam S <4 Ceftolozane/Tazobacta m S <2 Ceftriaxone S <1 Cefuroxime S <4 Ciprofloxacin S <0.25 Ertapenem S <0.5 Gentamicin S <2 Levofloxacin S <0.5 Meropenem S <1 Meropenem/Vaborbactam S <2 Nitrofurantoin S <32 Piperacillin/Tazobact am S <8 Tetracycline S <4 Tigecycline S <2 Tobramycin S <2 Trimethoprim/Sulfamet hoxazole S <0.5 S = SUSCEPTIBLE I = [...] RESISTANT TO ALL B-LACTAM DRUGS. PERFORMED BY: [place] [address] PATHOLOGIST [employer] DAVI BURGOS M.D. Normal [facility] Comment on above: Performed By: #### C UU #### [address] ECG 12-LEADon 08-27-2024 [place] [address] Electrocardiograph Report Signed Patient: BERTHA GALARZA MR#: [id number] : 1950 Acct:[id number] Age/Sex: 74 / F ADM Date: 08/26/24 Loc: CARD Attending Dr: Delmi Love NP Ordering Physician: Delmi Love NP Date of Service: 08/26/24 Procedure(s): ECG 12 lead Accession Number(s): [id number] cc: [facility] Test Date: 2024-08-26 Pat Name: BERTHA GALARZA Department: Room: - Gender: Female Control Specialist: : 1950 Requested By: DELMI LOVE Order Number: [id number] Reading MD: TRIXIE AVENDAÑO M.D. 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 Basophils/100 WBC (Bld) 0.2 % 0.2 - 2.0 % [facility] Eosinophils/100 WBC (Bld) 1.4 % 0.9 - 7.0 % [facility] Erythrocyte distribution width (RBC) [Ratio] 12.3 % 11.0 - 15.0 % [facility] Hematocrit (Bld) [Volume fraction] 42.4 % 36.0 - 48.0 % [facility] Hemoglobin (Bld) [Mass/Vol] 14.3 g/dL 12.0 - 16.0 g/dL [facility] IMMATURE GRANULOCYTES ABS AUTO 0.02 [facility] Immature granulocytes/100 WBC (Bld) 0.2 % 0.0 - 0.5 % [facility] Interpretation and review of laboratory results Abnormal [facility] LYMPHOCYTES ABSOLUTE AUTO 1.7 [facility] Lymphocytes/100 WBC (Bld) 20.7 % 20.5 - 60.0 % [facility] MCH (RBC) [Entitic mass] 32.1 pg 26.7 - 34.0 pg [facility] MCHC (RBC) [Mass/Vol] 33.7 g/dL 29.9 - 35.2 g/dL [facility] MCV (RBC) [Entitic vol] 95.3 fL 81.0 - 99.0 fL [facility] MONOCYTES ABSOLUTE AUTO 0.8 [facility] Monocytes/100 WBC (Bld) 10.2 % 1.7 - 12.0 % [facility] NEUTROPHILS ABSOLUTE AUTO 5.4 [facility] Neutrophils/100 WBC (Bld) 67.3 % 43.0 - 75.0 % [facility] Platelet mean volume (Bld) [Entitic vol] 9.2 fL Low 9.5 - 13.5 fL [facility] TBH EO # 0.1 [facility] e TB PLT 230 [facility] e TB RBC 4.45 [facility] e TB WBC 8.1 [facility] e [facility] e ECG 12-LEADon 08-26-2024 Radiology Study observation (narrative) [facility] US LOWER EXTREMITY VENO US INSUFFICIENCY BILATERALon 08-25-2024 [facility] US LOWER EXTREMITY VENOUS INSUFFICIENCY BILATERAL EXAM: Bilateral Lower Extremity Venous Insufficiency Ultrasound: [...] report is generated using voice recognition reporting ([employer]). On occasion [employer] erroneously drops words from the report or replaces the spoken word with similar sounding words. Please call with any questions/concerns regarding this report.* Dictated and transcribed 08/25/24/dpd This report has been electronically signed and approved by the interpreting radiologist. Normal Not Available No Panel Informationon 07-15 Radiology Study observation (narrative) [facility] US PVR/SEGMENTAL PRESSU RES LOWERon 07-15-2024 [facility] US PVR/SEGMENTAL PRESSURES LOWER EXAM: Lower Extremity PVR/Segmental Pressures Vascular Ultrasound. REASON FOR EXAM: PVD [...] report is generated using voice recognition reporting ([employer]). On occasion [employer] erroneously drops words from the report or replaces the spoken word with similar sounding words. Please call with any questions/concerns regarding this report.* Dictated and transcribed 07/20/2024/tm This report has been electronically signed and approved by the interpreting radiologist. Normal Not Available Comment on above: Order Comment: Reque sting segmental pressures with PVRs and TBIs. Thank you. XR Foot - left 3 [facility] Result: AP, medial oblique, lateral views are weight-bearing. No acuteFractures or dislocations. Joints appear well-maintained with the exception of the 1st MTP which has some slight joint space narrowing, periarticular osteophytes very minimally. There is very slight increased IM 1-2 angle and very slight lateral deviation of the sesamoid complex. There is slight increase in SEPULVEDA angle. [facility] XR Foot - right 3 [facility] Result: AP, medial oblique, lateral views are weight-bearing. No acuteFractures or dislocations. Joints appear well-maintained with the exception of the 1st MTP which has some slight joint space narrowing, periarticular osteophytes very minimally. There is very slight increased IM 1-2 angle and very slight lateral deviation of the sesamoid complex. There is slight increase in SEPULVEDA angle. [facility] [employer] [facility] CALCIUMon 06-05-2024 Calcium [Mass/Vol] 9.3 mg/dL 8.5 - 10. 1 mg/dL [facility] [email or web address] [facility] [place] [facility] Office Visiton 06-02-2024 Follow-up visit [id number] Bertha Galarza 1950 F Date Provider Department Center 06/02/2024 [id number]-JULIO CESAR [facility]RE[facility] Family History Problem Relation Age of Onset Coronary artery disease Mother Coronary artery disease Sister Coronary artery disease Brother Family Status - Relation Status Age at Mother Sister Brother Level of Service:82527 [place] OFFICE/OUTPATIENT ESTABLISHED LOW MDM 20 MIN Normal [facility] Optical coherence tomography study reporton 05-25-2024 [employer] Radiology Study observation (narrative) [facility] [email or web address] Jonathan 05-01-2024 L - -------- Specimen: [id number] Received: 05/01/24 Status: KALABethany Riley Num: [id number] Spec Type: Surgical Subm Dr: Taiwo Rosa MD Tissues: A Colon Biopsy (CECUM COLON POLYPS) B Colon Biopsy (TRANSVERSE COLON POLYPS) C Colon Biopsy (DESCENDING COLON POLYPS) D Colon Biopsy (SIGMOID COLON POLYP) Procedures: /10, Gross/Micro L4/4 -------- Age/ Patient Sex Location Account Attending Physician -------- Bertha Galarza 74/F [id number] Taiwo Rosa MD -------- SPEC NUM: [id number] RECD: 05/01/24-9 STATUS: LUCAS RILEY NUM: [id number] ANGELITA: 05/01/24-1032 [facility] DR: Taiwo Rosa MD ENTERED: 05/01/24-[address] [facility] [address]: ELI TYPE: Surgical DEPT: S ENTERED BY: [id number] RECV BY: [id number] ORDERED: HE/10, Gross/Micro L4/4 ORDERED: HE/10, Gross/Micro [...] submitted in a single cassette. (1, ns, S29-230 A) GENE -------- Specimen: [id number] Received: 05/01/24 Status: LUCAS Shaw Num: [id number] Spec Type: Surgical Subm Dr: Taiwo Rosa MD Tissues: A Colon Biopsy (CECUM COLON POLYPS) B Colon Biopsy (TRANSVERSE COLON POLYPS) C Colon Biopsy (DESCENDING COLON POLYPS) D Colon Biopsy (SIGMOID COLON POLYP) Procedures: /Manuel, Gross/Micro L4/4 -------- Patient: Bertha Galarza [id number] (Continued) -------- Specimen: [id number] Received: 05/01/24 (Continued) Gross Description (Continued) Signed (signature on file) Rik Juárez MD 05/04/24 1453 -------- Specimen: S2 Received: 05/01/24 Status: LUCAS Shaw Num: [id number] Spec Type: Surgical Subm Dr: Taiwo Rosa MD Tissues: A Colon Biopsy (CECUM COLON POLYPS) B Colon Biopsy (TRANSVERSE COLON POLYPS) C Colon Biopsy (DESCENDING COLON POLYPS) D Colon Biopsy (SIGMOID COLON POLYP) Procedures: , Gross/Micro L4/4 -------- Patient: Donna Galarzarosa isela Mejía [id number] (Continued) -------- Specimen: Received: 05/01/24 (Continued) Gross Description (Continued) Part [...] specimen entirely submitted in B2. (2, ns, S25 B)JG Part C is received in formalin labeled with the patients name, date of , and descending colon are 2 sen-boles, focally erythematous, friable, 0.3 and 0.5 cm in greatest dimension polypoid fragments. The specimen is entirely submitted in a single cassette. (1, ns, S20-050 C) JG Part D is received in [...] submitted in a single cassette. (1, ns, D97-287 D) CPT Codes 71531d5 -------- (more content not included)... Normal [facility] MLR HEMOGLOBIN A1Con 024 Glucose [Mass/Vol] 123 mg/dL [facility] HbA1c (Bld) [Mass fraction] 5.9 % 4.5 - 6.2 % [facility] Healthcare Comment on above: ADA RECOMMENDED LIMI T 4.0 - 6.0 ADA THERAPEUTIC TARGET < 7.0 ACTION SUGGESTED > 7.0 [facility] Healthcar e ALL LIPID PROFILE (FASTING)o n 02-18-2024 CHOL [facility]ATIO 3.3 [facility] Comment on above: 3.3 - 4.4 LOW RISK 4.4 - 7.1 AVERAGE RISK 7.1 - 11.0 MODERATE RISK >11.0 HIGH RISK Cholesterol [Mass/Vol] 160 mg/dL NINF - 200 mg/dL [facility] Cholesterol in HDL [Mass/Vol] 49 mg/dL 40 - 60 mg/dL [facility] Comment on above: > or =60 mg/dl - LOW CARDIOVASCULAR RISK <40 mg/dl - HIGH CARDIOVASCULAR RISK Interpretation and review of laboratory results Abnormal [facility] Healthmo re Magnesium [Mass/Vol] 49 mg/dL [facility] Comment on above: <100 mg/dl OPTIMAL 100-129 mg/dl NEAR OR ABOVE OPTIMAL 130-159 mg/dl BORDERLINE HIGH 160-189 mg/dl HIGH >190 mg/dl VERY HIGH Magnesium [Mass/Vol] 62.6 mg/dL [facility] Triglyceride [Mass/Vol] 313 mg/dL High NINF - 150 mg/dL [facility] TSH W/REFLEX T4on 01-22-2024 TSH Qn 0.892 m[IU]/L [facility] Healthcar e Office Visiton 12-04-2023 Follow-up visit [id number] Bertha Galarza 1950 F Date Provider Department Center 12/04/2023 Sarkis8-JULIO CESAR [place] CARD [facility] Family History Problem Relation Age of Onset Coronary artery disease Mother Coronary artery disease Sister Coronary artery disease Brother Family Status - Relation Status Age at Mother Sister Brother Level of Service:13571 [place] OFFICE/OUTPATIENT NEW LOW MDM 30 MINUTES Normal [facility] US CAROTID ARTERY DUPLE X BILATERALon 11-20-2023 [facility] US CAROTID ARTERY DUPLEX BILATERAL EXAM: [...] report is generated using voice recognition reporting ([employer]). On occasion [employer] erroneously drops words from the report or replaces the spoken word with similar sounding words. Please call with any questions/concerns regarding this report.* Dictated and transcribed 11/25/23/dpgregory This report has been electronically signed and approved by the interpreting radiologist. Electronically Signed Jamia Riddle M.D. 2023-11-25 14:40:34 Normal Not Available DIRECT LDLon 07-03-2022 Cholesterol in LDL [Mass/Vol] 174 mg/dL Normal [facility] Comment on above: Performed By: #### D LDL, LIPID, TSH #### [facility] [address] [place] [address] Dr. Radha Farris DLDL NORMAL SEE BELOW Normal [facility] Comment on above: Result Comment: <100 mg/dl OPTIMAL 100 - 129 mg/dl NEAR OR ABOVE OPTIMAL 130 - 159 mg/dl BORDERLINE HIGH 160 - 189 mg/dl HIGH >190 mg/dl VERY HIGH Performed By: #### D LDL, LIPID, TSH #### [facility] [address] [place] [address] Dr. Radha Farris LIPID PROFILEon 07-03-2022 CHOL-HDL RATIO NORM SEE BELOW Normal [facility] Comment on above: Result Comment: 3.3 - 4.4 LOW RISK 4.4 - 7.1 AVERAGE RISK 7.1 - 11.0 MODERATE RISK >11.0 HIGH RISK Performed By: #### D LDL, LIPID, TSH #### [facility] [address] [place] [address] Dr. Radha Farris Cholesterol [Mass/Vol] 395 mg/dL Critically high <=200 [facility] Comment on above: Performed By: #### D LDL, LIPID, TSH #### [facility] [address] [address] [address] Radha Farris Cholesterol in HDL [Mass/Vol] 35 mg/dL Critically low 40-60 [facility] Comment on above: Performed By: #### D LDL, LIPID, TSH #### [facility] [address] [address] [address] Radha Farris Cholesterol.total/C holesterol in HDL [Mass ratio] 11.3 {ratio} Normal [facility] Comment on above: Performed By: #### D LDL, LIPID, TSH #### [facility] [address] [address] [address] Radha Farris HDL NORMAL > or = 60 mg/dl - LO W CARDIOVASCULAR RISK <40 mg/dl - HIGH CARDIOVASCULAR RISK Normal [facility] Comment on above: Performed By: #### D LDL, LIPID, TSH #### [facility] [address] [place] [address] Dr. Radha Farris Triglyceride [Mass/Vol] 935 mg/dL Critically high <=150 [facility] Comment on above: Performed By: #### D LDL, LIPID, TSH #### [facility] [address] [place] [address] Dr. Radha Farris TSHon 07-03-2022 TSH 0.906 uIU/mL Normal 0.358-3.740 [facility] Comment on above: Performed By: #### D LDL, LIPID, TSH #### [facility] [address] [place] [address] Dr. Radha Farris XR LSPINE 2_3 VIEWSon [...] by: KARI KAN Date: 2022-07-03 13:22 Normal [facility] MG MAMM SCREEN 3D RABIA CADon 03-29-2022 MG MAMM SCREEN 3D RABIA CAD Patient: BERTHA GALARZA Exam Date: 03/29/2022 : 1950 Gender:F Ordering : DR JOSE DAVID GODWIN D.O. Admission #: [id number] Family : Order #: [id number] CLICK HERE TO VIEW EXAM RADIOLOGY REPORT PROCEDURE: MAMMOGRAM SCREENING 3D BILATERAL CAD COMPARISON: MG MAMM SCREEN RABIA W CAD, 03/11/2020. MG MAMM SCREEN 3D RABIA CAD, 03/21/2021. INDICATIONS: Screening mammography Calculator Name NCI Breast Cancer Risk Assessment Tool 5 Year Breast Cancer Risk n/a% Lifetime Breast Cancer Risk n/a% Personal Breast Cancer Yes, Left breast cancer 2005 Personal Ovarian Cancer No Treatments Lumpectomy, radiation, and chemotherapy Family Cancers Father with lung cancer at age 51; Sister with colon cancer at age 54. LOCATION: [facility] BREAST COMPOSITION: Scattered areas fibroglandular density. [...] Kan MD on 03/29/2022 at 13:23 Normal [facility] T4on 02-06-2022 T4 [Mass/Vol] 9.60 ug/dL Normal 4.80-13.90 [facility] Comment on above: Performed By: #### T 4, TSH #### [facility] [address] [address] [address] Radha Farris TSHon 02-06-2022 TSH 0.188 uIU/mL Critically low 0.358-3.740 [facility] Comment on above: Performed By: #### T 4, TSH #### [facility] [address] [address] [address] Radha Farris Urine culture routineOrdered By: Yuliet Perez on 11-29-2021 Bacteria identified Cx Nom (U) Escherichia coli [facility] Urinalysis - AUTOMATEDon Appearance (U) clowdy [employer] Other Bilirubin Ql (U) Negative [employer] Other Color (U) yellow [facility] Other Glucose Ql (U) Negative [employer] Other Hemoglobin Ql (U) small [employer] Other Ketones Ql (U) Negative [employer] Other Leukocyte esterase Test strip Ql (U) large [facility] Other Nitrite Ql (U) Negative [employer] Other pH (U) 6.0 [pH] [facility] Other Protein Ql (U) 30 [employer] Other Specific gravity (U) [Rel density] 1.020 [facility] Other Urobilinogen (U) [Mass/Vol] 0.2 mg/dL [facility] Other Urinalysis - AUTOMATED [facility] Other Urine Cultureon 11-26-2021 Urine Culture 20,000 [facility] Other Urine Culture <16 Susceptible [employer] Other Urine Culture <8 Susceptible [employer] Other Urine Culture <4 Susceptible [employer] Other Urine Culture <2 Susceptible [employer] Other Urine Culture <1 Susceptible [employer] Other Urine Culture <0.5 Susceptible [employer] Other Urine Culture <32 Susceptible [employer] Other Urine Culture <2/38 Susceptible [employer] Other Vital Signs Date Time Vital Sign Value Performing Clinician Facility 10-14-2024 10:34-0400 Body height 167.6 cm Darien Rus DPM Work Phone: [facility] 10-14-2024 10:34-0400 Body mass index (BMI) [Ratio] 32.77 kg/m2 Darienlenora Blanca DPM Work Phone: [facility] 10-14-2024 10:34-0400 Body weight 92.08 kg Darien Moura DPM Work Phone: [facility] 09-24-2024 15:38-0400 Body mass index (BMI) [Ratio] 32.77 kg/m2 Delmi Love HOTEL DESK CLERK Work Phone: [facility] 09-24-2024 15:38-0400 Body temperature 98.29 [degF] Delmi Kate HOTEL DESK CLERK Work Phone: [facility] 09-24-2024 15:38-0400 Body weight 92.08 kg Delmi Love HOTEL DESK CLERK Work Phone: [facility] 09-24-2024 15:38-0400 Diastolic blood pressure 64 mm[Hg] Delmi Love HOTEL DESK CLERK Work Phone: [facility] 09-24-2024 15:38-0400 Heart rate 76 /min Delmi Love HOTEL DESK CLERK Work Phone: [facility] 09-24-2024 15:38-0400 Respiratory rate 18 /min Delmi Love HOTEL DESK CLERK Work Phone: [facility] 09-24-2024 15:38-0400 SaO2% (BldA) [Mass fraction] 93 % Delmi Perezbianca HOTEL DESK CLERK Work Phone: [facility] 09-24-2024 15:38-0400 Systolic blood pressure 112 mm[Hg] Delmi Love HOTEL DESK CLERK Work Phone: [facility] 09-10-2024 14:22-0400 Body height 167.64 cm [facility] 09-10-2024 14:22-0400 Body mass index (BMI) [Ratio] 32.5 kg/m2 [facility] 09-10-2024 14:22-0400 Body temperature 97.7 [degF] [facility] 09-10-2024 14:22-0400 Body weight 91.34 kg [facility] 09-10-2024 14:22-0400 Diastolic blood pressure 69 mm[Hg] [facility] 09-10-2024 14:22-0400 Heart rate 83 /min [facility] 09-10-2024 14:22-0400 Respiratory rate 18 /min [facility] 09-10-2024 14:22-0400 SaO2% (BldA) [Mass fraction] 95 % [facility] 09-10-2024 14:22-0400 Systolic blood pressure 133 mm[Hg] [facility] 08-18-2024 16:03-0400 Body height 165.1 cm Mike Gant MD Work Phone: [facility] 08-18-2024 16:03-0400 Body mass index (BMI) [Ratio] 33.95 kg/m2 Mike Gant MD Work Phone: [facility] 08-18-2024 16:03-0400 Body weight 92.53 kg Mike Gant MD Work Phone: [facility] 08-18-2024 16:03-0400 Diastolic blood pressure 76 mm[Hg] Mike Gant MD Work Phone: [facility] 08-18-2024 16:03-0400 Heart rate 83 /min Mike Gant MD Work Phone: [facility] 08-18-2024 16:03-0400 SaO2% (BldA) [Mass fraction] 94 % Mike Gant MD Work Phone: [facility] 08-18-2024 16:03-0400 Systolic blood pressure 120 mm[Hg] Mike Gant MD Work Phone: [facility] 08-12-2024 13:44-0400 Body mass index (BMI) [Ratio] 32.89 kg/m2 Delmi Aichholz HOTEL DESK CLERK Work Phone: [facility] 08-12-2024 13:44-0400 Body temperature 97.59 [degF] Delmi Aichholz HOTEL DESK CLERK Work Phone: [facility] 08-12-2024 13:44-0400 Body weight 92.44 kg Delmi Aichholz HOTEL DESK CLERK Work Phone: [facility] 08-12-2024 13:44-0400 Diastolic blood pressure 72 mm[Hg] Delmi Aichholz HOTEL DESK CLERK Work Phone: [facility] 08-12-2024 13:44-0400 Heart rate 82 /min Delmi Aichholz HOTEL DESK CLERK Work Phone: [facility] 08-12-2024 13:44-0400 Respiratory rate 20 /min Delmi Aichholz HOTEL DESK CLERK Work Phone: [facility] 08-12-2024 13:44-0400 SaO2% (BldA) [Mass fraction] 94 % Delmi Aichholz HOTEL DESK CLERK Work Phone: [facility] 08-12-2024 13:44-0400 Systolic blood pressure 120 mm[Hg] Delmi Aichholz HOTEL DESK CLERK Work Phone: [facility] 07-16-2024 11:41-0400 Body mass index (BMI) [Ratio] 32.64 kg/m2 Delmi Aichholz HOTEL DESK CLERK Work Phone: [facility] 07-16-2024 11:41-0400 Body temperature 98.29 [degF] Delmi Love HOTEL DESK CLERK Work Phone: [facility] 07-16-2024 11:41-0400 Body weight 91.72 kg Delmi Love HOTEL DESK CLERK Work Phone: [facility] 07-16-2024 11:41-0400 Diastolic blood pressure 70 mm[Hg] Delmi Perezz HOTEL DESK CLERK Work Phone: [facility] 07-16-2024 11:41-0400 Heart rate 95 /min Delmi Perezz HOTEL DESK CLERK Work Phone: [facility] 07-16-2024 11:41-0400 Respiratory rate 18 /min Delmi Love HOTEL DESK CLERK Work Phone: [facility] 07-16-2024 11:41-0400 SaO2% (BldA) [Mass fraction] 97 % Delmi Love HOTEL DESK CLERK Work Phone: [facility] 07-16-2024 11:41-0400 Systolic blood pressure 108 mm[Hg] Delmi Perezz HOTEL DESK CLERK Work Phone: [facility] 07-15-2024 10:32-0400 Body height 167.6 cm Darien Martellher DPM Work Phone: [facility] 07-15-2024 10:32-0400 Body mass index (BMI) [Ratio] 32.01 kg/m2 Darien Rusher DPM Work Phone: [facility] 07-15-2024 10:32-0400 Body weight 89.95 kg Darien Rusher DPM Work Phone: [facility] 05-28-2024 10:24-0500 Body height 167.6 cm Kunal Ortiz HOTEL DESK CLERK Work Phone: [facility] 05-28-2024 10:24-0500 Body mass index (BMI) [Ratio] 32.01 kg/m2 Kunal Ortiz HOTEL DESK CLERK Work Phone: [facility] 05-28-2024 10:24-0500 Body temperature 96.3 [degF] Kunal Ortiz HOTEL DESK CLERK Work Phone: [facility] 05-28-2024 10:24-0500 Body weight 89.95 kg Kunal Ortiz HOTEL DESK CLERK Work Phone: [facility] 05-28-2024 10:24-0500 Diastolic blood pressure 68 mm[Hg] Kunal Ortiz HOTEL DESK CLERK Work Phone: [facility] 05-28-2024 10:24-0500 Heart rate 67 /min Kunal Ortiz HOTEL DESK CLERK Work Phone: [facility] 05-28-2024 10:24-0500 Respiratory rate 16 /min Kunal Ortiz HOTEL DESK CLERK Work Phone: [facility] 05-28-2024 10:24-0500 SaO2% (BldA) [Mass fraction] 95 % Kunal Ortiz HOTEL DESK CLERK Work Phone: [facility] 05-28-2024 10:24-0500 Systolic blood pressure 122 mm[Hg] Kunal Ortiz HOTEL DESK CLERK Work Phone: [facility] 05-01-2024 11:20-0500 Diastolic blood pressure 60 mm[Hg] Kunal Ortiz HOTEL DESK CLERK-C Work Phone: [facility] 05-01-2024 11:20-0500 Heart rate 70 /min Kunal Ortiz HOTEL DESK CLERK-C Work Phone: [facility] 05-01-2024 11:20-0500 Respiratory rate 16 /min Kunal Ortiz HOTEL DESK CLERK-C Work Phone: [facility] 05-01-2024 11:20-0500 SaO2% (BldA) [Mass fraction] 99 % Kunal Ortiz HOTEL DESK CLERK-C Work Phone: [facility] 05-01-2024 11:20-0500 Systolic blood pressure 112 mm[Hg] Kunal Petersonpatrick HOTEL DESK CLERK-C Work Phone: [facility] 05-01-2024 09:46-0500 Body height 167.64 cm Kunal Ortiz HOTEL DESK CLERK-C Work Phone: [facility] 05-01-2024 09:46-0500 Body weight 86.18 kg Kunal Petersonpatrick HOTEL DESK CLERK-C Work Phone: [facility] 04-13-2024 11:28-0500 Body height 167.6 cm Delmi Magdalenaloreleiholz HOTEL DESK CLERK Work Phone: [facility] 04-13-2024 11:28-0500 Body mass index (BMI) [Ratio] 31.64 kg/m2 Delmi Aichholz HOTEL DESK CLERK Work Phone: [facility] 04-13-2024 11:28-0500 Body temperature 97.59 [degF] Delmi Aichholz HOTEL DESK CLERK Work Phone: [facility] 04-13-2024 11:28-0500 Body weight 88.91 kg Delmi Aichholz HOTEL DESK CLERK Work Phone: [facility] 04-13-2024 11:28-0500 Diastolic blood pressure 78 mm[Hg] Delmi Aichholz HOTEL DESK CLERK Work Phone: [facility] 04-13-2024 11:28-0500 Heart rate 86 /min Delmi Aichholz HOTEL DESK CLERK Work Phone: [facility] 04-13-2024 11:28-0500 Respiratory rate 19 /min Delmi Aichholz HOTEL DESK CLERK Work Phone: [facility] 04-13-2024 11:28-0500 SaO2% (BldA) [Mass fraction] 95 % Delmi Aichholz HOTEL DESK CLERK Work Phone: [facility] 04-13-2024 11:28-0500 Systolic blood pressure 110 mm[Hg] Delmi Aichholz HOTEL DESK CLERK Work Phone: [facility] 02-27-2024 10:36-0500 Body height 167.6 cm Kunal Petersonpatrick HOTEL DESK CLERK Work Phone: [facility] 02-27-2024 10:36-0500 Body mass index (BMI) [Ratio] 31.51 kg/m2 Kunal Ortiz HOTEL DESK CLERK Work Phone: [facility] 02-27-2024 10:36-0500 Body temperature 97.59 [degF] Kunal Ortiz HOTEL DESK CLERK Work Phone: [facility] 02-27-2024 10:36-0500 Body weight 88.54 kg Kunal Ortiz HOTEL DESK CLERK Work Phone: [facility] 02-27-2024 10:36-0500 Diastolic blood pressure 64 mm[Hg] Kunal Ortiz HOTEL DESK CLERK Work Phone: [facility] 02-27-2024 10:36-0500 Heart rate 78 /min Kunal Petersonpatrick HOTEL DESK CLERK Work Phone: [facility] 02-27-2024 10:36-0500 Respiratory rate 16 /min Kunal Petersonpatrick HOTEL DESK CLERK Work Phone: [facility] 02-27-2024 10:36-0500 Systolic blood pressure 128 mm[Hg] Kunal Ortiz HOTEL DESK CLERK Work Phone: [facility] 02-13-2024 13:56-0400 Body height 167.6 cm Ben Roe DPM Work Phone: [facility] 02-13-2024 13:56-0400 Body mass index (BMI) [Ratio] 32.28 kg/m2 Ben Roe DPM Work Phone: [facility] 02-13-2024 13:56-0400 Body weight 90.72 kg Ben Roe DPM Work Phone: [facility] 02-13-2024 13:56-0400 Diastolic blood pressure 80 mm[Hg] Ben Roe DPM Work Phone: [facility] 02-13-2024 13:56-0400 Heart rate 78 /min Ben Roe DPM Work Phone: [facility] 02-13-2024 13:56-0400 Systolic blood pressure 129 mm[Hg] Ben Roe DPM Work Phone: [facility] 12-19-2023 11:36-0400 Body height 167.6 cm Kunal Ortiz HOTEL DESK CLERK Work Phone: [facility] 12-19-2023 11:36-0400 Body mass index (BMI) [Ratio] 31.64 kg/m2 Kunal Ortiz HOTEL DESK CLERK Work Phone: [facility] 12-19-2023 11:36-0400 Body temperature 97.59 [degF] Kunal Ortiz HOTEL DESK CLERK Work Phone: [facility] 12-19-2023 11:36-0400 Body weight 88.91 kg Kunal Ortiz HOTEL DESK CLERK Work Phone: [facility] 12-19-2023 11:36-0400 Diastolic blood pressure 68 mm[Hg] Kunal Ortiz HOTEL DESK CLERK Work Phone: [facility] 12-19-2023 11:36-0400 Heart rate 75 /min Kunal Ortiz HOTEL DESK CLERK Work Phone: [facility] Comment on above: 95% 02 12-19-2023 11:36-0400 Systolic blood pressure 118 mm[Hg] Kunal Ortiz HOTEL DESK CLERK Work Phone: [facility] 11-26-2021 11:15-0400 Body height 167.64 cm Yuliet Perez Other [facility] Other 11-26-2021 11:15-0400 Body mass index (BMI) [Ratio] 30.66 kg/m2 Yuliet Perez Other [facility] Other 11-26-2021 11:15-0400 Body temperature 98 [degF] Yuliet Perez Other [facility] Other 11-26-2021 11:15-0400 Body weight 86.18 kg Yuliet Perez Other [facility] Other 11-26-2021 11:15-0400 Diastolic blood pressure 61 mm[Hg] Yuliet Perez Other [facility] Other 11-26-2021 11:15-0400 SaO2% (BldA) [Mass fraction] 98 % Yuliet Perez Other [facility] Other 11-26-2021 11:15-0400 Systolic blood pressure 117 mm[Hg] Yuliet Perez Other [facility] Other Encounters Encounter Date Encounter Type Care Provider Facility Start: 10-20-2024 End: 10-20-2024 Clinisync Result Encounter Generic External Data Provider [facility] External [facility] Unsolicited Start: 10-20-2024 End: 10-20-2024 Clinisync Result Encounter Generic External Data Provider [facility] External Department Unsolicited Start: 10-20-2024 End: 10-20-2024 Telephone encounter Delmi Love HOTEL DESK CLERK Work Phone: [facility] Start: 10-19-2024 End: 10-19-2024 ambulatory [facility] Start: 10-14-2024 End: 10-14-2024 ambulatory DARIEN BLANCA Not Available Start: 10-14-2024 End: 10-14-2024 Office outpatient visit 25 minutes Darien Blanca DPM Work Phone: [facility] Comment on above: Neuropathy, idiopath ic (Primary Dx); Peripheral vascular disease; Smoker; Corns and callosities; Left foot pain; Neuritis Start: 10-13-2024 End: 10-13-2024 Patient encounter procedure Jamia Guevara MD Work Phone: [facility] Comment on above: Numbness (Primary Dx ); Paresthesias; Peripheral polyneuropathy Start: 10-13-2024 End: 10-13-2024 ambulatory JAMIA GUEVARA Not Available Start: 09-29-2024 End: 09-29-2024 Orders Only Delmi Love HOTEL DESK CLERK Work Phone: [facility] Comment on above: Numbness and tinglin g of both feet (Primary Dx); Spondylosis of cervical spine; Acquired spondylolisthesis of lumbosacral region Start: 09-28-2024 End: 09-28-2024 ambulatory DELMI HARPREETHOLBianca Not Available Start: 09-25-2024 End: 09-25-2024 Telephone encounter Jamia Guevara MD Work Phone: [facility] Start: 09-24-2024 End: 09-24-2024 Office outpatient visit 25 minutes Delmilea Love HOTEL DESK CLERK Work Phone: [facility] Comment on above: Numbness and tinglin g of both feet (Primary Dx); Tobacco dependence; Other fatigue; Hypothyroidism, unspecified type ; Lumbar back pain; Neck pain; Other chest pain Start: 09-24-2024 End: 09-24-2024 ambulatory DELMI KATE Not Available Start: 09-24-2024 End: 09-24-2024 Bamboo flowsheet Delmi Kate HOTEL DESK CLERK Work Phone: [facility] Start: 09-24-2024 End: 09-24-2024 Bamboo flowsheet Delmi Kate HOTEL DESK CLERK Work Phone: [facility] Start: 09-14-2024 End: 09-14-2024 Refill Delmi Kate HOTEL DESK CLERK Work Phone: [facility] Comment on above: UTI symptoms (Primar y Dx) Start: 09-10-2024 End: 09-10-2024 Departed Referred Yuliet Perez MOLDING MACHINE OPERATOR HELPER Work Phone: [facility] [place] Work Phone: Start: 09-10-2024 End: 09-10-2024 ambulatory Yuliet Perez [facility] Work Phone: Start: 09-10-2024 End: 09-10-2024 Patient encounter procedure [facility] Work Phone: Start: 08-26-2024 End: 08-27-2024 Clinisync Result Encounter Delmi Love HOTEL DESK CLERK Work Phone: [facility] External Department Unsolicited Start: 08-26-2024 End: 08-27-2024 Clinisync Result Encounter Delmi Love HOTEL DESK CLERK Work Phone: [facility] Unsolicited Start: 08-25-2024 End: 08-25-2024 Orders Only Delmi Love HOTEL DESK CLERK Work Phone: [facility] Comment on above: Vitamin D deficiency (Primary Dx) Start: 08-19-2024 End: 08-19-2024 Refill Delmi Love HOTEL DESK CLERK Work Phone: [facility] Comment on above: Vitamin D deficiency (Primary Dx) Start: 08-18-2024 End: 08-18-2024 ambulatory MIKE GANT [facility] Start: 08-18-2024 End: 08-18-2024 Office outpatient new 45 minutes Mike Gant MD Work Phone: [facility] Comment on above: Lower extremity tiara a (Primary Dx); Dyslipidemia Start: 08-17-2024 End: 08-17-2024 Telephone encounter Shelli Francis CMA [facility] Start: 08-12-2024 End: 08-12-2024 Bamboo flowsheet Delmi Love HOTEL DESK CLERK Work Phone: [facility] Start: 08-12-2024 End: 08-12-2024 Bamboo flowsheet Delmi Love HOTEL DESK CLERK Work Phone: [facility] Start: 08-12-2024 End: 08-12-2024 Office outpatient visit 25 minutes Delmi Love HOTEL DESK CLERK Work Phone: [facility] Comment on above: Other fatigue (Prima ry Dx); Hypothyroidism, unspecified type (CMS/HCC); Acute otitis externa of left ear, unspecified type; Mixed hyperlipidemia (CMS/HCC); Tobacco dependence; Hyperlipidemia, unspecified hyperlipidemia type (CMS/HCC); Numbness and tingling of both feet; Vitamin D deficiency; Family history of coronary artery disease Start: 08-12-2024 End: 08-12-2024 ambulatory DELMI LOVE Not Available Start: 08-12-2024 ambulatory [facility] Start: 08-11-2024 End: 08-11-2024 Refill Delmi Love HOTEL DESK CLERK Work Phone: [facility] Comment on above: Hyperlipidemia, unsp ecified hyperlipidemia type (CMS/HCC) Start: 08-05-2024 End: 08-05-2024 Refill Delmi Love HOTEL DESK CLERK Work Phone: [facility] Comment on above: Hypothyroidism, unsp ecified type (CMS/HCC) Start: 07-23-2024 End: 07-24-2024 Refill Delmi Kate HOTEL DESK CLERK Work Phone: [facility] Comment on above: Mixed hyperlipidemia (CMS/HCC) Start: 07-21-2024 End: 07-21-2024 Telephone encounter Darien Blanca DPM Work Phone: [facility] Start: 07-20-2024 End: 07-20-2024 ambulatory DARIEN BLANCA Not Available Start: 07-16-2024 End: 07-17-2024 Telephone encounter Darien Blanca DPM Work Phone: [facility] Comment on above: Advice Only (Rx Frazier ge Request) Start: 07-16-2024 End: 07-16-2024 Office outpatient visit 10 minutes Delmi Love HOTEL DESK CLERK Work Phone: [facility] Comment on above: Acute otitis externa of left ear, unspecified type (Primary Dx); Tobacco dependence Start: 07-16-2024 End: 07-16-2024 ambulatory DELMI LOVE Not Available Start: 07-15-2024 End: 07-15-2024 Bamboo flowsheet Darien Blanca DPM Work Phone: [facility] Start: 07-15-2024 End: 07-15-2024 Bamboo flowsheet Darien Blanca DPM Work Phone: [facility] Start: 07-15-2024 End: 07-15-2024 Office outpatient visit 25 minutes Darien Blanca DPM Work Phone: [facility] Comment on above: Neuropathy, idiopath ic (Primary Dx); Neuritis; Pain in both feet; Peripheral vascular disease (CMS/HCC); Smoker Start: 07-15-2024 End: 07-15-2024 ambulatory DARIEN BLANCA Not Available Start: 06-07-2024 End: 06-07-2024 Orders Only Delmi Love HOTEL DESK CLERK Work Phone: [facility] Comment on above: Prediabetes (Primary Dx); Mixed hyperlipidemia (CMS/HCC); Tobacco dependence Vitamin D deficiency (Primary Dx) Start: 06-05-2024 End: 06-05-2024 Clinisync Result Encounter Kunal Ortiz HOTEL DESK CLERK Work Phone: [facility] External Department Unsolicited Start: 06-05-2024 End: 06-05-2024 Clinisync Result Encounter Kunal Ortiz HOTEL DESK CLERK Work Phone: [facility] Department Unsolicited Start: 06-02-2024 End: 06-02-2024 [facility] Start: 05-28-2024 End: 05-28-2024 Bamboo flowsheet Kunal Solorzanok HOTEL DESK CLERK Work Phone: [facility] Start: 05-28-2024 End: 05-28-2024 Bamboo flowsheet Kunal Solorzanok HOTEL DESK CLERK Work Phone: [facility] Start: 05-28-2024 End: 05-28-2024 Office outpatient visit 15 minutes Kunal Ortiz HOTEL DESK CLERK Work Phone: [facility] Comment on above: Prediabetes (Primary Dx); Hypertriglyceridemia (CMS/HCC) Start: 05-28-2024 End: 05-28-2024 ambulatory KUNAL ORTIZ Not Available Start: 05-25-2024 End: 05-25-2024 Bamboo flowsheet Dandy Correa DO Work Phone: [facility] Start: 05-25-2024 End: 05-25-2024 Bamboo flowsheet Dandy Correa DO Work Phone: [facility] Start: 05-25-2024 End: 05-25-2024 ambulatory DANDY CORREA Not Available Start: 05-01-2024 Non-patient / Non-visit Jessica Ortiz HOTEL DESK CLERK-C Work Phone: [facility] Work Phone: Start: 05-01-2024 End: 05-01-2024 Admission to same day surgery center Kunal Ortiz HOTEL DESK CLERK-C Work Phone: [facility] Work Phone: Start: 05-01-2024 End: 05-01-2024 ambulatory Kunal Ortiz HOTEL DESK CLERK-C Work Phone: [facility] Work Phone: Start: 04-21-2024 End: 04-21-2024 Orders Only Kunal Ortiz HOTEL DESK CLERK Work Phone: [facility] Comment on above: Age-related osteopor osis without current pathological fracture (CMS/HCC) (Primary Dx) Start: 04-13-2024 End: 04-13-2024 Office outpatient visit 15 minutes Delmi Nicholsluis alberto HOTEL DESK CLERK Work Phone: [facility] Comment on above: Acute non-recurrent maxillary sinusitis (Primary Dx); Tobacco dependence; Acute URI Start: 04-13-2024 End: 04-13-2024 ambulatory DELMI MULLINSVIVIAN Not Available Start: 03-26-2024 End: 03-26-2024 Orders Only Kunal Ortiz HOTEL DESK CLERK Work Phone: [facility] Comment on [...] Start: 03-19-2024 End: 03-19-2024 Clinisync Result Encounter Kunal Ortiz HOTEL DESK CLERK Work Phone: [facility] External Department Unsolicited Start: 03-19-2024 End: 03-19-2024 Clinisync Result Encounter Kunal Solorzanok HOTEL DESK CLERK Work Phone: [facility] Unsolicited Start: 02-27-2024 End: 02-27-2024 Bamboo flowsheet Kunal Solorzanok HOTEL DESK CLERK Work Phone: [facility] Start: 02-27-2024 End: 02-27-2024 Bamboo flowsheet Kunal Solorzanok HOTEL DESK CLERK Work Phone: [facility] Start: 02-27-2024 End: 02-27-2024 Patient encounter procedure Kunal Ortiz HOTEL DESK CLERK Work Phone: [facility] Comment on above: Screening for malign ant neoplasm of colon (Primary Dx); Prediabetes; Encounter for screening mammogram for malignant neoplasm of breast; Encounter for osteoporosis screening in asymptomatic postmenopausal patient; Need for immunization against influenza Start: 02-27-2024 End: 02-27-2024 ambulatory KUNAL REEDTRICK Not Available Start: 02-24-2024 End: 02-24-2024 Orders Only Kunal Solorzanok HOTEL DESK CLERK Work Phone: [facility] Comment on above: Mixed hyperlipidemia (CMS/HCC) (Primary Dx) Start: 02-18-2024 End: 02-18-2024 Clinisync Result Encounter Kunal Ortiz HOTEL DESK CLERK Work Phone: [facility] External Department Unsolicited Start: 02-18-2024 End: 02-18-2024 Clinisync Result Encounter Kunal Solorzanok HOTEL DESK CLERK Work Phone: [facility] External Department Unsolicited Start: 02-17-2024 End: 02-17-2024 Refill Kunal Ortiz HOTEL DESK CLERK Work Phone: [facility] Comment on [...] pain, right Start: 02-11-2024 End: 02-11-2024 Refill Kunal Jizpatrick HOTEL DESK CLERK Work Phone: [facility] Comment on above: Hyperlipidemia, unsp ecified hyperlipidemia type (CMS/HCC); Hypothyroidism, unspecified type (CMS/HCC) Start: 01-22-2024 End: 01-22-2024 Clinisync Result Encounter Kunal Ortiz HOTEL DESK CLERK Work Phone: [facility] Unsolicited Start: 01-22-2024 End: 01-22-2024 Clinisync Result Encounter Kunal Jizpatrick HOTEL DESK CLERK Work Phone: [facility] External [facility] Unsolicited Start: 12-19-2023 End: 12-19-2023 Bamboo flowsheet Kunal Ortiz HOTEL DESK CLERK Work Phone: [facility] Start: 12-19-2023 End: 12-19-2023 Bamboo flowsheet Kunal Ortiz HOTEL DESK CLERK Work Phone: [facility] Start: 12-19-2023 End: 12-19-2023 Office outpatient visit 15 minutes Kunal Ortiz HOTEL DESK CLERK Work Phone: [facility] Comment on above: Prediabetes (Primary Dx); Hypertriglyceridemia (CMS/HCC); Hypothyroidism, unspecified type (CMS/HCC); Impacted cerumen of left ear Start: 12-19-2023 End: 12-19-2023 ambulatory KUNAL ORTIZ Not Available Start: 12-04-2023 End: 12-04-2023 ambulatory [facility] Start: 11-20-2023 End: 11-20-2023 ambulatory KUNAL ORTIZ Not Available Start: 11-18-2023 End: 11-18-2023 ambulatory KUNAL ORTIZ Not Available Start: 11-08-2023 End: 11-08-2023 ambulatory DANDY CORREA Not Available Start: 10-22-2023 End: 10-22-2023 ambulatory AME HONG Not Available Start: 05-24-2023 Chart abstracting Ame castillo PA Work Phone: [facility] Start: 05-24-2023 End: 05-24-2023 Postop follow up visit related to original px Ame Hong PA Work Phone: [facility] Comment on above: S/P carpal tunnel re lease (Primary Dx); Right hand pain; Arthritis of carpometacarpal (CMC) joint of right thumb Start: 07-03-2022 End: 07-04-2022 ambulatory SHAIKH Lorelei ENGEL Facility:[facility] Start: 03-29-2022 End: 03-30-[address] JOSE DAVID GODWIN Facility:[facility] Start: 02-06-2022 End: 02-07-[address] JOSE DAVID GODWIN Facility:[facility] Start: 11-26-2021 End: 11-26-2021 ambulatory Yuliet Perez Other [facility] Other Start: 11-26-2021 Office outpatient ne w 20 minutes Yuliet Perez [facility] Start: 11-26-2021 End: 11-26-2021 Departed Referred DO Jose David Godwin Work Phone: [facility] [place] Start: 09-13-2021 End: 09-13-2021 Patient encounter procedure DO Jose David Godwin Work Phone: [facility] [address] Procedures Date Procedure Procedure Detail Performing Clinician Start: 10-20-2024 ALL LIPID PROFILE (FASTING) Generic External Data Provider Start: 08-26-2024 ECG 12-LEAD Delmi read HOTEL DESK CLERK Work Phone: Start: 08-26-2024 ALL CBC WITH AUTO DIFF Delmi Love HOTEL DESK CLERK Work Phone: Start: 07-15-2024 End: 07-15-2024 Radex foot complete minimum 3 views Darien Blanca DPM Work Phone: Start: 06-05-2024 [facility] CALCIUM Kunal Anahi dee HOTEL DESK CLERK Work Phone: Start: 05-25-2024 Computerized ophthal alma imaging retina Dandy Correa DO Work Phone: Start: 05-25-2024 End: 05-25-2024 Ophth medical xm&eval comprhnsv estab pt 1/> Epiretinal membrane (ERM) of both eyes Dandy Gregory Roseericka DO Work Phone: Comment on above: Epiretinal membrane (ERM) of both eyes (Primary Dx); Hollenhorst plaque, right eye; Dry eyes; Blepharitis of upper and lower eyelids of both eyes, unspecified type Start: 05-04-2024 Colonoscopy Dandy sunshine DO Work Phone: Start: 05-01-2024 Colonoscopy Kunal price HOTEL DESK CLERK-C Work Phone: Start: 03-19-2024 MLR HEMOGLOBIN A1C Marian seny Diana HOTEL DESK CLERK Work Phone: Start: 02-18-2024 ALL LIPID PROFILE (FASTING) Kunal Diana HOTEL DESK CLERK Work Phone: Start: 01-22-2024 TSH W/REFLEX T4 Britfrancy PetersonOrtiz HOTEL DESK CLERK Work Phone: Start: 04-01-2023 Mammography Ame castillo PA Work Phone: Start: 11-26-2021 Piperacillin/tazobactam Yuliet Perez Other Start: 09-13-2021 CT of thorax with contrast DO Jose David Citlali Work Phone: History of decompres tatum of median nerve S/P carpal tunnel release Ame Hong PA Work Phone: Urine culture DO Jose David Ambriz Work Phone: Plan of Treatment Date Care Activity Detail Author Start: 05-04-2034 Screening for malignant neoplasm of colon [facility] Start: 03-18-2027 Screening for malignant neoplasm of colon [facility] Start: 10-20-2025 End: 10-20-2025 Patient encounter procedure 10/20/2025 11:00 AM EDT Office Visit [facility] [address] [address] Ame Hong PA [address] [place] [address] [facility] Start: 08-18-2025 Adult BMI Screening Adult BMI Screening [facility] Start: 08-18-2025 Tobacco Screening Tobacco Screening [facility] Start: 03-23-2025 End: 03-23-2025 Patient encounter procedure 03/23/2025 1:35 PM EST Office Visit [facility] [address] [place] [address] Benjamin Tan MD [address] [place] [address] [facility] Start: 02-26-2025 Medicare Annual Wellness (AWV) Medicare Annual Wellness (AWV) [facility] Start: 02-16-2025 End: 02-16-2025 Patient encounter procedure 02/16/2025 1:10 PM EST Office Visit [facility] [address] [place] [address] Mike Gant MD [address] [place] [address] [facility] Start: 01-20-2025 End: 01-20-2025 Patient encounter procedure 01/20/2025 1:30 PM EDT Office Visit [facility] [address] [place] [id number] Dandy Correa DO [address] [place] [address] [facility] Start: 12-14-2024 Influenza vaccination [facility] Start: 11-26-2024 End: 11-26-2024 Patient encounter procedure [facility] Start: 11-09-2024 End: 11-09-2024 Patient encounter procedure 11/09/2024 3:00 PM EDT Office Visit [facility] [address] [place] [address] Delmi Love, JADE [address] [place] [address] [facility] Start: 10-14-2024 End: 10-14-2024 Patient encounter procedure 10/14/2024 10:30 AM EDT Office Visit [facility] [address] [place] [id number] Darien Blanca, DPM [address] [place] [address] [facility] Start: 10-13-2024 End: 10-13-2024 Patient encounter procedure 10/13/2024 12:00 PM EDT Procedure Visit [facility] [address] [facility] [address] [place] [address] Jamia Guevara MD [address] [facility] [address] [place] [address] [facility] Start: 09-29-2024 End: 09-29-2025 MR Cervical spine WO contrast MR cervical spine wo contrast Imaging Routine Spondylosis of cervical spine Expected: 09/29/2024 (Approximate), Expires: 09/29/[address] [facility] Comment on above: Expected: 09/29/2024 (Approximate), Expi res: 09/29/2025 Start: 09-29-2024 End: 09-29-2025 MR Lumbar spine WO contrast MR lumbar spine wo contrast Imaging Routine Acquired spondylolisthesis of lumbosacral region Expected: 09/29/2024, Expires: 09/29/2025 [facility] Work Phone: Comment on above: Expected: 09/29/2024, Expires: Start: 09-29-2024 End: 09-29-2025 XR Lumbar spine Views W flexion and W extension XR lumbar spine 4+ views w flexion extension Imaging Routine Acquired spondylolisthesis of lumbosacral region Expected: 09/29/2024, Expires: 09/29/2025 [facility] Comment on above: Expected: 09/29/2024, Expires: Start: 09-24-2024 End: 09-24-2024 Patient encounter procedure [facility] Comment on above: Tobacco dependence (Primary Dx); Other fatigue; Hypothyroidism, unspecified type Start: 09-24-2024 End: 09-24-2025 EMG AND NERVE CONDUCTION STUDY EMG AND NERVE CONDUCTION STUDY Neurology Routine Numbness and tingling of both feet Lumbar back pain Expected: 09/24/2024 (Approximate), Expires: 09/24/2025 [facility] Comment on above: Expected: 09/24/2024 (Approximate), Expi res: 09/24/2025 Start: 09-24-2024 End: 09-24-2025 XR Cervical spine 2 or 3 Views XR cervical spine 2 or 3 views Imaging Routine Neck pain Expected: 09/24/2024, Expires: 09/24/2025 [facility] Comment on above: Expected: 09/24/2024, Expires: Start: 09-24-2024 End: 09-24-2025 XR Lumbar spine 2 or 3 Views XR lumbar spine 2 or 3 views Imaging Routine Lumbar back pain Expected: 09/24/2024, Expires: 09/24/2025 [facility] Work Phone: Comment on above: Expected: 09/24/2024, Expires: Start: 09-10-2024 Urine culture [facility] Start: 09-10-2024 Bacteria identified in Urine by Culture Urine Culture [facility] Start: 08-25-2024 End: 08-25-2025 25-hydroxyvitamin D3 [Mass/volume] in Serum or Plasma Vitamin D 25 hydroxy Lab Routine Vitamin D deficiency Expected: 08/25/2024 (Approximate), Expires: 08/25/2025 [facility] Work Phone: Comment on above: Expected: 08/25/2024 (Approximate), Expi res: 08/25/2025 Start: 08-25-2024 End: 08-25-2024 Professional / ancillary services management 08/25/2024 11:30 AM EDT Ancillary Procedure [facility] [address] [place] [phone] [facility] Start: 08-18-2024 End: 08-18-2024 Patient encounter procedure 08/18/2024 3:50 PM EDT Office Visit [facility] [address] [place] [address] Mike Gant MD [address] [place] [address] [facility] Start: 08-18-2024 End: 08-18-2025 US.doppler Lower extremity vein - bilateral Vas venous duplex insufficiency lwr bi Vascular Ultrasound Routine Lower extremity edema Expected: 08/18/2024, Expires: 08/18/2025 [facility] Work Phone: Comment on above: Expected: 08/18/2024, Expires: Start: 08-12-2024 End: 08-12-2025 CBC W Auto Differential panel - Blood CBC and differential Lab Routine Other fatigue Numbness and tingling of both feet Expected: 08/12/2024 (Approximate), Expires: 08/12/2025 [facility] Comment on above: Expected: 08/12/2024 (Approximate), Expi res: 08/12/2025 Start: 08-12-2024 End: 08-12-2025 Cobalamin (Vitamin B12) [Mass/volume] in Serum or Plasma Vitamin B12 Lab Routine Other fatigue Numbness and tingling of both feet Expected: 08/12/2024 (Approximate), Expires: 08/12/2025 [facility] Comment on above: Expected: 08/12/2024 (Approximate), Expi res: 08/12/2025 Start: 08-12-2024 End: 08-12-2025 ECG 12 lead ECG 12 lead ECG Routine Tobacco dependence Hyperlipidemia, unspecified hyperlipidemia type (CMS/HCC) Other fatigue Family history of coronary artery disease Expected: 08/12/2024 (Approximate), Expires: 08/12/2025 [facility] Comment on above: Expected: 08/12/2024 (Approximate), Expi res: 08/12/2025 Start: 08-12-2024 End: 08-12-2025 Iron and Iron binding capacity panel - Serum or Plasma Iron level Lab Routine Other fatigue Expected: 08/12/2024 (Approximate), Expires: 08/12/2025 [facility] Comment on above: Expected: 08/12/2024 (Approximate), Expi res: 08/12/2025 Start: 08-12-2024 End: 08-12-2025 Thyrotropin [Units/volume] in Serum or Plasma TSH Lab Routine Hypothyroidism, unspecified type (CMS/HCC) Expected: 08/12/2024 (Approximate), Expires: 08/12/2025 [facility] Work Phone: Comment on above: Expected: 08/12/2024 (Approximate), Expi res: 08/12/2025 Start: 08-12-2024 End: 08-12-2025 Thyroxine (T4) free [Mass/volume] in Serum or Plasma T4, free Lab Routine Hypothyroidism, unspecified type (CMS/HCC) Expected: 08/12/2024 (Approximate), Expires: 08/12/2025 [facility] Comment on above: Expected: 08/12/2024 (Approximate), Expi res: 08/12/2025 Start: 08-12-2024 End: 08-12-2025 Triiodothyronine (T3) Free [Mass/volume] in Serum or Plasma T3, free Lab Routine Hypothyroidism, unspecified type (CMS/HCC) Expected: 08/12/2024 (Approximate), Expires: 08/12/2025 [facility] Comment on above: Expected: 08/12/2024 (Approximate), Expi res: 08/12/2025 Start: 08-12-2024 End: 08-12-2024 Patient encounter procedure [facility] Comment on above: Hypothyroidism, unspecified type (CMS/HC C) (Primary Dx); Acute otitis externa of left ear, unspecified type; Mixed hyperlipidemia (CMS/HCC); Tobacco dependence Start: 07-30-2024 End: 06-07-2025 25-hydroxyvitamin D3 [Mass/volume] in Serum or Plasma Vitamin D 25 hydroxy Lab Routine Vitamin D deficiency Expected: 07/30/2024 (Approximate), Expires: 06/07/2025 [facility] Work Phone: Comment on above: Expected: 07/30/2024 (Approximate), Expi res: 06/07/2025 Start: 07-20-2024 End: 07-20-2024 Professional / ancillary services management 07/20/2024 11:30 AM EDT Ancillary Procedure [facility] [address] [place] [phone] [facility] Start: 07-16-2024 End: 07-16-2024 Patient encounter procedure 07/16/2024 11:45 AM EDT Office Visit [facility] [address] [place] [address] Delmi Love NP [address] [place] [phone] [facility] Start: 07-15-2024 End: 07-15-2024 Patient encounter procedure 07/15/2024 10:15 AM EDT Office Visit [facility] [address] [place] [phone] Darien Blanca, DPM [address] [place] [address] Arrived [facility] Comment on above: Arrived Start: 06-07-2024 End: 06-07-2025 CBC W Auto Differential panel - Blood CBC and differential Lab Routine Tobacco dependence Expected: 06/07/2024 (Approximate), Expires: 06/07/2025 [facility] Comment on above: Expected: 06/07/2024 (Approximate), Expi res: 06/07/2025 Start: 06-07-2024 End: 06-07-2025 Comprehensive metabolic 2000 panel - Serum or Plasma Comprehensive metabolic panel Lab Routine Prediabetes Mixed hyperlipidemia (CMS/HCC) Expected: 06/07/2024 (Approximate), Expires: 06/07/2025 [facility] Comment on above: Expected: 06/07/2024 (Approximate), Expi res: 06/07/2025 Start: 06-07-2024 End: 06-07-2025 Microalbumin/Creatinine panel in random Urine Microalbumin / creatinine, urine ratio Lab Routine Prediabetes Expected: 06/07/2024 (Approximate), Expires: 06/07/2025 [facility] Work Phone: Comment on above: Expected: 06/07/2024 (Approximate), Expi res: 06/07/2025 Start: 06-07-2024 End: 06-07-2025 Urinalysis complete panel - Urine Urinalysis with reflex microscopic (clean catch) Lab Routine Prediabetes Expected: 06/07/2024 (Approximate), Expires: 06/07/2025 [facility] Comment on above: Expected: 06/07/2024 (Approximate), Expi res: 06/07/2025 Start: 05-28-2024 End: 05-28-2024 Patient encounter procedure [facility] Comment on above: Arrived Start: 05-25-2024 End: 05-25-2024 Patient encounter procedure [facility] Comment on above: Arrived Start: 05-01-2024 [facility] Start: 04-21-2024 End: 04-21-2025 25-hydroxyvitamin D3 [Mass/volume] in Serum or Plasma Vitamin D 25 hydroxy Lab Routine Age-related osteoporosis without current pathological fracture (CMS/HCC) Expected: 04/21/2024 (Approximate), Expires: 04/21/2025 [facility] Comment on above: Expected: 04/21/2024 (Approximate), Expi res: 04/21/2025 Start: 04-21-2024 End: 04-21-2025 Calcium [Mass/volume] in Serum or Plasma Calcium Lab Routine Age-related osteoporosis without current pathological fracture ([facility]/HCC) Expected: 04/21/2024 (Approximate), Expires: 04/21/2025 [facility] Work Phone: Comment on above: Expected: 04/21/2024 (Approximate), Expi res: 04/21/2025 Start: 04-01-2024 Screening for malignant neoplasm of breast Mammogram [facility] Start: 03-23-2024 End: 03-23-2024 Patient encounter procedure 03/23/2024 2:05 PM EST Office Visit [facility] [address] [place] [phone] Benjamin Tan MD [address] [place] [address] [facility] Start: 02-27-2024 End: 2025 DBT Breast - bilateral screening Bilateral screening mammogram with tomosynthesis Imaging Routine Encounter for screening mammogram for malignant neoplasm of breast Expected: 02/27/2024, Expires: 2025 [facility] Comment on above: Expected: 02/27/2024, Expires: Start: 02-27-2024 End: 02-26-2025 DXA Skeletal system Views for bone density DEXA bone density Imaging Routine Encounter for osteoporosis screening in asymptomatic postmenopausal patient Expected: 02/27/2024, Expires: 02/26/2025 [facility] Comment on above: Expected: 02/27/2024, Expires: Start: 02-27-2024 End: 02-26-2025 Hemoglobin A1c/Hemoglobin.total in Blood Hemoglobin A1c Lab Routine Prediabetes Expected: 02/27/2024 (Approximate), Expires: 02/26/2025 [facility] Comment on above: Expected: 02/27/2024 (Approximate), Expi res: 02/26/2025 Start: 02-27-2024 End: 02-26-2025 Noninvasive colorectal cancer DNA and occult blood screening [Presence] in Stool Cologuard colon cancer screening Lab Routine Screening for malignant neoplasm of colon Expected: 02/27/2024 (Approximate), Expires: 02/26/2025 [facility] Work Phone: Comment on above: Expected: 02/27/2024 (Approximate), Expi res: 02/26/2025 Start: 02-27-2024 End: 02-27-2024 Patient encounter procedure 02/27/2024 11:00 AM EST [facility] [address] [place] [phone] Kunal Ortiz, JADE [address] [place] [address] [facility] Start: 02-20-2024 Medicare Annual Wellness (AWV) Medicare Annual Wellness (AWV) [facility] Start: 02-13-2024 End: 02-13-2024 Patient encounter procedure 02/13/2024 1:50 PM EDT Office Visit [facility] [address] [facility] [address] [place] [address] Ben Roe DPM [address] [facility] [address] [place] [address] [facility] Start: 01-10-2024 Screening for malignant neoplasm of colon Colorectal Cancer Screening [facility] Comment on above: Postponed from 1950 (Other Patient Reasons) Start: 01-02-2024 End: 12-18-2024 TSH W/REFLEX TO FT4 TSH W/REFLEX TO FT4 Lab Routine Hypothyroidism, unspecified type (CMS/HCC) Expected: 01/02/2024 (Approximate), Expires: 12/18/2024 [facility] Work Phone: Comment on above: Expected: 01/02/2024 (Approximate), Expi res: 12/18/2024 Start: 12-19-2023 End: 12-19-2023 Patient encounter procedure 12/19/2023 11:30 AM EDT Office Visit [facility] [address] [place] [phone] Kunal Ortiz NP [address] [place] [address] Prediabetes (Primary Dx); Hypertriglyceridemia (CMS/HCC); Mixed hyperlipidemia (CMS/HCC) [facility] Comment on above: Prediabetes (Primary Dx); Hypertriglyceridemia (CMS/HCC); Mixed hyperlipidemia (CMS/HCC) Start: 12-15-2023 COVID-19 Vaccine () COVID-19 Vaccine () [facility] Start: 12-15-2023 Influenza vaccination Influenza Vaccine (#1) [facility] Start: 10-11-2023 End: 10-11-2023 Patient encounter procedure 10/11/2023 10:30 AM EDT Office Visit [facility] [address] [facility] [address] [place] [address] Ame Hong, PA [address] [facility] [address] [place] [address] [facility] Start: 05-24-2023 End: 05-24-2023 Patient encounter procedure 05/24/2023 10:30 AM EST Office Visit [facility] [address] [facility] [address] [place] [address] Ame Hong, [place] [address] [facility] [address] [place] [address] [facility] Start: 11-13-2022 Adult BMI Screening Adult BMI Screening [facility] Start: 03-25-2022 Screening for malignant neoplasm of colon [facility] Start: 2016 Fall Risk Screening Fall Risk Screening [facility] Start: 2001 Administration of varicella zoster vaccine Zoster (Shingles) Vaccine (1 of 2) [facility] Start: 1970 DTaP,Tdap and Td Vaccines (1 - Tdap) DTaP,Tdap and Td Vaccines (1 - Tdap) [facility] Start: 1969 Adult BMI Follow Up Plan Adult BMI Follow Up Plan [facility] Start: 1963 Depression Screening Depression Screening [facility] Start: 1963 Tobacco Screening Tobacco Screening [facility] Start: 1950 Medicare Annual Wellness (AWV) Medicare Annual Wellness (AWV) [facility] Start: 1950 Screening for malignant neoplasm of colon [facility] Start: 1950 Screening for malignant neoplasm of lung Lung Cancer Screening Shared Decision Making [facility] Start: 1950 Tobacco Counseling Tobacco Counseling [facility] Patient Education Colon polyps H emorrhoids ED Diverticulosis Know your Meds [facility] Work Phone: US.doppler Extremity arteries - bilateral for physiologic artery study at rest and with exercise VASC US PVR/SEGMENTAL PRESSURES LOWER Imaging Routine Peripheral vascular disease (CMS/HCC) Ordered: 07/15/2024 [facility] Work Phone: Comment on above: Ordered: 07/15/2024 XR Hand - right 3 Views XR hand 3+ views right Imaging Routine Right hand pain 05/24/2023 10:32 AM EST [facility] Work Phone: Immunizations Immunization Date Immunization Notes Care Provider Ander [facility] 02-27-2024 influenza, seasonal, injectable, preservative free Kunal Reedtrick [employer] Work Phone: [facility] 02-27-2024 influenza virus vaccine, unspecified formulation Scanning External [facility] 02-13-2023 Influenza, Seasonal, Quadrivalent, Adjuvanted Delmi Aichholz HOTEL DESK CLERK Work Phone: [facility] 02-13-2023 influenza virus vaccine, unspecified formulation Kunal Reedtrick HOTEL DESK CLERK Work Phone: [facility] 02-07-2022 Influenza, Seasonal, Quadrivalent, Adjuvanted Delmi Aichholz HOTEL DESK CLERK Work Phone: [facility] 04-11-2021 Influenza, Seasonal, Quadrivalent, Adjuvanted Delmi Aichholz HOTEL DESK CLERK Work Phone: [facility] 01-13-2020 influenza, injectabl e, quadrivalent, preservative free Delmi Aichholz HOTEL DESK CLERK Work Phone: [facility] 12-25-2019 influenza, injectabl e, quadrivalent, preservative free Delmi Aichholz HOTEL DESK CLERK Work Phone: [facility] 01-21-2019 pneumococcal polysaccharide vaccine, 23 valent Delmi Aichholz HOTEL DESK CLERK Work Phone: [facility] 01-21-2019 Seasonal, quadrivale nt, recombinant, injectable influenza vaccine, preservative free Delmi Aichholz HOTEL DESK CLERK Work Phone: [facility] 01-28-2018 Seasonal trivalent influenza vaccine, adjuvanted, preservative free Delmi Aichholz HOTEL DESK CLERK Work Phone: [facility] 03-14-2017 influenza, injectabl e, quadrivalent, preservative free Delmi Aichholz HOTEL DESK CLERK Work Phone: [facility] 03-14-2017 pneumococcal conjuga te vaccine, 13 valent Delmi Aichholz HOTEL DESK CLERK Work Phone: [facility] 01-23-2016 seasonal influenza, intradermal, preservative free Delmi Aichholz HOTEL DESK CLERK Work Phone: [facility] Payers Date Payer Category Payer Self-pay [id number] 2021 Medicare AN[employer]M MEDICARE ADVANTAGE ASHEM MEDICARE ADVANTAGE [id number] 2021-Present [address] [place] [address] [id number] 2021 Medicare (Managed Care) [facility] [id number] 2019 Medicare HMO ANTHEM MEDICARE [id number] 1959 Medicare [id number] 1950 Unknown [id number] 2.16.840.1.643577.3.579. 2.593 1951 Unknown [id number] 2.16840.1.096139.3.579. 2.593 1951 Unknown [id number] 2.16.840.1.567837.3.579. 2.593 1951 Unknown [id number] 2.16.840.1.445806.3.579. 2.1286 1951 Unknown [id number] 2.16.840.1.486346.3.579. 2.1286 1951 Unknown [id number] 2.16.840.1.719227.3.579. 2.1259 1951 Unknown [id number] 2.16.840.1.225048.3.579. 2.1259 1951 Unknown [id number] 2.16.840.1.582018.3.579. 2.1258 1951 Unknown [id number] 2.16.840.1.542556.3.579. 2.1258 1951 Unknown [id number] 2.16.840.1.274746.3.579. 2.1258 1951 Unknown [id number] 2.16.840.1.536967.3.579. 2.1258 1951 Unknown [id number] 2.16.840.1.234218.3.579. 2.1258 1951 Unknown [id number] 2.16.840.1.932414.3.579. 2.1258 1951 Unknown [id number] 2.16.840.1.286203.3.579. 2.1258 1951 Unknown [id number] 2.16.840.1.011646.3.579. 2.1258 1951 Unknown [id number] 2.16.840.1.845116.3.579. 2.1258 1951 Unknown [id number] 2.16.840.1.872063.3.579. 2.1258 1951 Unknown [id number] 2.16.840.1.846898.3.579. 2.1258 1951 Unknown [id number] 2.16.840.1.992336.3.579. 2.1258 1951 Unknown [id number] 2.16.840.1.565000.3.579. 2.1258 1951 Unknown [id number] 2.16.840.1.648737.3.579. 2.1258 1951 Unknown [id number] 2.16.840.1.673866.3.579. 2.1259 1951 Unknown [id number] 2.16.840.1.695593.3.579. 2.1259 1951 Unknown [id number] 2.16.840.1.896418.3.579. 2.1259 1951 Unknown [id number] 2.16.840.1.244181.3.579. 2.1259 1951 Unknown [id number] 2.16.840.1.735403.3.579. 2.1259 1951 Unknown [id number] 2.16.840.1.484860.3.579. 2.1259 1951 Unknown [id number] 2.16.840.1.187531.3.579. 2.1259 1951 Unknown [id number] 2.16.840.1.509242.3.579. 2.1259 Unknown [place] BC/BS 1 [id number] Unknown Other1 (STD) [id number] Unknown [id number] 2.16.840.1.814208.3.579. 2.531 Unknown [id number] 2.16.840.1.968381.3.579. 2.531 Social History Date Type Detail Facility Tobacco smoking stat us [facility] Unknown if ever smoked [facility] Work Phone: Start: 1950 Sex Assigned At Female [facility] Start: 03-29-2023 End: 11-12-2023 Sex Assigned At [facility] Start: 07-28-1973 End: 11-08-2023 Tobacco smoking status MAIS Smokes tobacco daily [facility] Start: 07-28-1973 History of tobacco use Cigarette Smoker [facility] Start: 11-07-2022 End: 11-08-2023 Tobacco use and exposure Smokeless tobacco non-user [facility] Start: 05-03-2023 End: 10-14-2024 Alcohol intake Lifetime non-drinker (finding) [facility] Start: 03-29-2023 End: 11-12-2023 History of Social function [facility] Start: 1950 Sex Assigned At Not on file [facility] History of tobacco use Passive smoker [facility] How often do you nee d to have someone help you when you read instructions, pamphlets, or other written material from your doctor or pharmacy [SILS] Rarely [facility] Do you belong to any clubs or organizations such as mu-ism groups, unions, fraternal or athletic groups, or [...] more. Never true [facility] Start: 05-01-2024 End: 05-01-2024 Tobacco smoking status NHIS Smoker (finding) [facility] Start: 05-01-2024 Sex Patient sex unknown (finding) [facility] How often do you nee d to have someone help you when you read instructions, pamphlets, or other written material from your doctor or pharmacy [SILS] Rarely [facility] Start: 08-11-2024 End: 08-18-2024 Alcoholic beverage intake Current drinker of alcohol (finding) [facility] Start: 05-16-2020 Alcohol Comment occassional [facility] Start: 11-18-2014 End: 09-11-2024 Sex Female (finding) [facility] Start: 06-11-2020 Gender identity Identifies as female gender (finding) [facility] Goals Date Patient Goal Desired Activity /State Clinical Notes 11-26-2021 to 10-20-2024 Telephone Encounter - Delmi Love NP - 10/20/2024 9:33 AM EDTTelephone Encounter - Delmi Love NP - 10/20/2024 9:33 AM Elia Blanca DPM - 10/14/2024 10:30 AM EDTPatient Instructions Note Date & Type Note Facility 10-20-2024 Telephone encounter Note Please let pt know that her insurance denied her MRI lumbar spine, she will need to do PT first, does she want to go that route? [place] [facility] 10-20-2024 Miscellaneous Notes Please let pt know that her insurance denied her MRI lumbar spine, she will need to do PT first, does she want to go that route? [place] documented in this encounter [facility] 10-19-2024 Note SUBJECTIVE Reason for Visit: Bertha Galarza is [...] will be ordered. 06/02/2024 office visit (Dr. Borrego): Patient adamantly denies any cardiac complaints or [...] mg daily #Tobacco dependence Lifetime smoker, started wh (more content not included)... [facility] 10-14-2024 History of Present illness Narrative Images from the original note were not included. Subjective Patient ID: Bertha Galarza is a 74 y.o. female who presents for FUV Metanx (Bertha Galarza 74yo New Patient presents for 3 month FUV of Metanx therapy. Patient relates she did not start Metanx due to cost. Patient would like a refill for the Alpha Lipoic acid. Patient had an appt. Yesterday with Neurology at [facility] in [place] (dr. Guevara)SS: 10). HPI Established patient returns to clinic for follow up evaluation of neuropathy. She was unable to afford met next. She has been taking alpha lipoic acid and [id number] vitamin-B complex with some mild improvement. She still has some tingling sensations and bilateral foot pain. Patient states that she started noticing itching sensations over the dorsum of the left foot a couple of weeks ago. She does not note any rash. Patient has concerned about a callus that is painful on the medial aspect of the left great toe. She also did [...] History: Diagnosis Date Actinic keratosis Cancer (HCC) 090639 Cataract CTS (carpal tunnel syndrome) 09/2022 Disease of thyroid gland 1986 Dry eyes Family history of thyroid problem High cholesterol Hx of breast cancer 2006 Personal history of other medical treatment thyroid Tear of meniscus of knee [id number] Trigger finger [id number] Visual impairment 02/2021 Medications Current Outpatient Medications: [...] REPLACEMENT 09/2021 KNEE SURGERY Left 2005 Dr Gr OTHER SURGICAL HISTORY 05/2020 Nodule removed on esophgus PARS PLANA VITRECTOMY W/ EMP STRIPPING Bilateral 2021 R.V.A. TONSILLECTOMY TOTAL KNEE ARTHROPLASTY Left 09/21/2021 DR GR TRIGGER FINGER RELEASE Right 02/07/2021 (R) MF ; DR GR TUBAL LIGATION 1982 Family History Family History Problem Relation Name Age of Onset Diabetes Mother Valerie Stroke Mother Valerie Cancer Father Rufus Cancer Sister Claudia Diabetes Sister Claudia Cancer Other [facility] Stroke Sister Benjamin Melanoma Neg Hx Objective Physical Exam Constitutional: [...] Range of motion of the 1st MTP limited to about 20 degrees of dorsiflexion. No crepitus bilaterally. No tenderness with range of motion of the 1st MTP bilaterally. No tenderness to the [...] primary care physician. Additionally she was concerned about the callus formation over the left great [...] of the neuropathy. I recommend applying lotion to the foot daily. I also recommend topical hydrocortisone. Lastly I recommend topical lidocaine if she still is getting issues and itching that is not helped by the lotion and steroid cream. Today I spent over 30 minutes in ahdd-ag-twhy time discussing with the patient on eating [...] Darien Blanca DPM documented in this encounter [facility] 10-13-2024 History of Present illness Narrative [facility] Patient: Bertha Galarza [address], [address] , Sex: 1950, Female [place], [place] [address] Height: 165 cm Ref Phys: Aichholz fax Electroneuromyogram (ENMG) Test Date: 2024-10-13 Patient Complaints: Lumbar pain. Numbness, paraesthesiae BLE Nerve Conduction Studies Anti Sensory Summary Table Site NR Peak (ms) Norm Peak (ms) P-T* Amp ( V) Norm P-T Amp Site1 Site2 Delta-0 (ms) Dist (cm) Hesham (m/s) Norm Hesham (m/s) Left Saphenous ([place]ainapel's) Anti [...] Amp Neg Dur (ms) Site1 Site2 Delta-0 (ms) Dist (cm) Hesham (m/s) Norm Hesham (m/s) Left [...] Doub=doublet; Fasc=fasciculation; FFE=full for effort; Fib=fibrillation; Myokym=myokymia; Coral=myotonic potential; N,0=normal; NR=no response; Polyph=polyphasia; Pos=positive [sharp] wave; RFU=rapidly firing units; Serr=serrated potential (2<phases<5); W&W=waxing and waning pattern INTERPRETATION: This study reveals ENMG evidence of a chronic, neuropathic, axonal, sensory > motor process affecting all lower extremity nerves tested. Needle examination demonstrates a xudrha-dm-unmqofhr gradient that is most suggestive of peripheral neuropathy. This is of moderate by electrical criteria. Potential aetiologies include diabetes mellitus, hypothyroidism, deficiencies of B12, B6, or folate, B6 excess, the collagen-vascular diseases, dysglobulinaemias, medications (including chemotherapeutics, diuretics, and others), as a paraneoplastic syndrome, and a considerable number of rarer conditions. There is no suggestion by this study of myopathy, mononeuropathy, nor of more proximal processes e.g. plexopathy or radiculopathy. Jamia Guevara M.D. Diplomate, [place] Board of Psychiatry and Neurology (neurology, epilepsy, sleep medicine) Diplomate, [place] Board of Clinical Neurophysiology Diplomate, [place] Board of Preventive Medicine (clinical informatics) . documented in this encounter [facility] 09-25-2024 Telephone encounter Note Patient scheduled BLE on 10/13/24--no deductible--35.00 co-pay applied--patient is aware. [facility] 09-25-2024 Miscellaneous Notes Patient scheduled BLE on 10/13/24--no deductible--35.00 co-pay applied--patient is aware. documented in this encounter [facility] 09-24-2024 History of Present illness Narrative Associated Problem(s): Other chest pain Unclear if the right chest pain and neck pain is radicular in nature, pt is established with cardiology, I will reach out to them and call to see if they would like to work her up Associated Problem(s): Lumbar back pain Check plain film Suspect LE sxs are radicular Associated Problem(s): Numbness and tingling of both feet Check xray lumbar and order EMG's bilat LE Associated Problem(s): Neck pain Check xray Pt is having an aching sensation on her right side of her neck, jaw and right ear and having pressure in the chest-middle of the chest Pt states its random it did happen this morning and all of a sudden she had this feeling in her right neck then pressure in her mid upper chest. She states that it has happened a couple times in the last 6 weeks. Each time she has taken 2 baby Asprin when having them and it goes always within the first 20 mins Images from the original note were not included. Bertha Galarza is a 74 y.o. female presents with chief complaint of Fatigue HPI: Pt is having an aching sensation on her right side of her neck, jaw and right ear and having pressure in the chest-middle of the chest Pt states its random it did happen this morning and all of a sudden she had this feeling in her right neck then pressure in her mid upper chest. She states that it has happened a couple times in the last 6 weeks. Each time she has taken 2 baby Asprin when having them and it goes always within the first 20 mins. No left anterior chest pain and no radiation to left side of neck/jaw or down the arm. The above pain is not associated with activity, no diaphoresis, NT, no stroke type features, no NV no dyspnea or dizziness Bilat feet: NT from knees down, some back pain. Has been seeing podiatry, also had vascular studies told it was normal testing Not feeling so fatigued SUBJECTIVE: MEDICATIONS: Current Outpatient Medications Medication Instructions Alpha Lipoic Acid 200 mg, Oral, 2 times daily aspirin 81 mg, Oral, Daily B Complex-C (b complex-vitamin c) tablet 1 tablet, Oral, Daily RT cholecalciferol (VITAMIN D-3) 125 mcg, Oral, Daily G-Phquzjsgduug-Szjyx-B12-B6 (Metanx) 3-90.314-2-35 MG capsule 3 mg, Oral, 2 times daily levothyroxine (SYNTHROID) 75 mcg, Oral, Daily before breakfast nicotine polacrilex (COMMIT) 2 mg, Every 4 hours PRN rosuvastatin (CRESTOR) 40 mg, Oral, Every evening ALLERGIES: Allergies Allergen Reactions Atorvastatin Other myalgias Penicillins Hives, Itching and Rash REVIEW OF SYMPTOMS: Review of Systems Constitutional: Negative for appetite change, chills and fever. HENT: Negative for congestion, ear pain and sore throat. Eyes: Negative for pain, discharge, redness and visual disturbance. Respiratory: Negative for cough, shortness of breath and wheezing. Cardiovascular: Negative for chest pain, palpitations and leg swelling. Gastrointestinal: Negative for abdominal pain, blood in stool, constipation, diarrhea, nausea and vomiting. Genitourinary: Negative for difficulty urinating, dysuria and frequency. Musculoskeletal: Positive for arthralgias, back pain and neck pain. Negative for joint swelling and myalgias. Skin: Negative for rash and wound. Neurological: Positive for numbness. Negative for dizziness, tremors, seizures, syncope and headaches. Psychiatric/Behavioral: Negative for behavioral problems, self-injury and suicidal ideas. The patient is not nervous/anxious. Hematological: Does not bruise/bleed easily. Endocrine: Negative for polydipsia, polyphagia and polyuria. Allergic/Immunologic: Negative for environmental allergies and food allergies. PAST MEDICAL HISTORY Past Medical History: Diagnosis Date Actinic keratosis Cancer (HCC) 182828 Cataract Dry eyes Family history of thyroid [...] in her mother. OBJECTIVE: Visit Vitals BP 112/64 (BP Location: Left arm, Patient Position: Sitting, BP Cuff Size: Adult long) Pulse 76 Temp 98.3 F (Temporal) Resp 18 Wt 203 lb LMP (LMP Unknown) SpO2 93% BMI 32.77 kg/m OB Status Postmenopausal Smoking Status Every Day BSA 2.07 m Physical Exam Vitals and nursing note reviewed. Constitutional: General: She is not in acute distress. Appearance: Normal appearance. She is obese. She is not ill-appearing. HENT: Head: Normocephalic and atraumatic. Right Ear: Tympanic membrane, ear canal and external ear normal. Left Ear: Tympanic membrane, ear canal and external ear normal. Nose: Nose normal. No congestion or rhinorrhea. Mouth/Throat: Mouth: Mucous membranes are moist. Pharynx: No oropharyngeal exudate or posterior oropharyngeal erythema. Eyes: Extraocular Movements: Extraocular movements intact. Conjunctiva/sclera: Conjunctivae normal. Neck: Vascular: No carotid bruit. Cardiovascular: Rate and Rhythm: Normal rate and regular rhythm. Pulses: Normal pulses. Heart sounds: Normal heart sounds. No murmur heard. Pulmonary: Effort: Pulmonary effort is normal. Breath sounds: Normal breath sounds. No wheezing or rhonchi. Abdominal: General: Bowel sounds are normal. There is no distension. Palpations: Abdomen is soft. There is no mass. Tenderness: There is no abdominal tenderness. Musculoskeletal: Cervical back: Normal range of motion and neck supple. Right lower leg: No edema. Left lower leg: No edema. Lymphadenopathy: Cervical: No cervical adenopathy. Skin: General: Skin is warm and dry. Capillary Refill: Capillary refill takes 2 to 3 seconds. Findings: No rash. Neurological: General: No focal deficit present. Mental Status: She is alert and oriented to person, place, and time. Cranial Nerves: No cranial nerve deficit. Deep Tendon Reflexes: Reflexes normal. Psychiatric: Mood and Affect: Mood normal. Behavior: Behavior normal. Thought Content: Thought content normal. Judgment: Judgment normal. ASSESSMENT AND PLAN: Follow up in about 6 weeks (around 11/05/2024) for Recheck. Problem List Items Addressed This Visit Hypothyroid Current medication: levothyroxine Check labs yearly and prn dose change or changes in sxs Tobacco dependence The patient has been advised of the risks of continued smoking: stroke, UT, all forms of cancer, lung disease, and . Options for quitting smoking include: cold turkey, hypnosis, acupuncture, nicotine replacement meds (gum, lozenges, and patches), Buproprion, and Varenicline. At this time pt is encouraged to evaluate their goals for wanting to quit smoking, and reach out to provider when ready to start this process Other fatigue Does follow cardiology Reviewed thyroid labs Consider sleep study Numbness and tingling of both feet - Primary Check xray lumbar and order EMG's bilat LE Relevant Orders EMG AND NERVE CONDUCTION STUDY EMG AND NERVE CONDUCTION STUDY Lumbar back pain Check plain film Suspect LE sxs are radicular Relevant Orders XR lumbar spine 2 or 3 views EMG AND NERVE CONDUCTION STUDY EMG AND NERVE CONDUCTION STUDY Neck pain Check xray Relevant Orders XR cervical spine 2 or 3 views Other chest pain Unclear if the right chest pain and neck pain is radicular in nature, pt is established with cardiology, I will reach out to them and call to see if they would like to work her up Associated Problem(s): Hypothyroid Current medication: levothyroxine Check labs yearly and prn dose change or changes in sxs Associated Problem(s): Other fatigue Does follow cardiology Reviewed thyroid labs Consider sleep study Associated Problem(s): Tobacco dependence The patient has been advised of the risks of continued smoking: stroke, UT, all forms of cancer, lung disease, and . Options for quitting smoking include: cold turkey, hypnosis, acupuncture, nicotine replacement meds (gum, lozenges, and patches), Buproprion, and Varenicline. At this time pt is encouraged to evaluate their goals for wanting to quit smoking, and reach out to provider when ready to start this process documented in this encounter [facility] 09-24-2024 Instructions Delmi Love NP - 09/24/2024 3:20 PM EDT Xray both neck and low back EMG: both legs, [facility] Cardiology documented in this encounter [facility] 08-18-2024 History of Present illness Narrative Images from the original note were not included. [facility] [address] [facility] [id number] Subjective: Patient ID: Bertha Galarza is a 74 y.o. female. Chief Complaint Chief Complaint Patient presents with New Patient *3:52 pt called, they were at wrong building on [address], they are making their way to the office now, should be within the 15 minute angela period. Peripheral vascular disease F17.200 (ICD-10-CM) - Smoker History of Present Illness: Thank you for referring patient Bertha Galarza and for your trust in our practice. Bertha Galarza is a 74 y.o. pleasant female with history of DL, current smoker who presents today for consultation at the [facility] due to bilateral feet numbness. Patient reports bilateral feet numbness in bilateral worse in the last few months. Occasional LE edema No wounds or ulcers Patient Active Problem List Diagnosis Lesion of vocal cord Hoarseness Smoking Nasal congestion Current Outpatient Medications: alpha lipoic acid 200 mg capsule, Take 1 capsule (200 mg total) by mouth in the morning and 1 capsule (200 mg total) before bedtime., Disp: , Rfl: aspirin 81 mg, Take 1 tablet (81 mg total) by mouth in the morning., Disp: , Rfl: atorvastatin (LIPITOR) 20 mg tablet, Take 0.5 tablets (10 mg total) by mouth in the morning., Disp: , Rfl: B-complex with vitamin C tablet, Take 1 tablet by mouth in the morning., Disp: , Rfl: cholecalciferol, vitamin D3, (VITAMIN D3) 5,000 units capsule, Take 1 capsule (5,000 Units total) by mouth in the morning., Disp: , Rfl: fluticasone propionate (FLONASE) 50 mcg/actuation nasal spray, Administer 1 spray into each nostril in the morning., Disp: 15.8 mL, Rfl: 2 levothyroxine (SYNTHROID, LEVOTHROID) 100 MCG tablet, Take 1 tablet (100 mcg total) by mouth in the morning., Disp: , Rfl: omega 9-kyu-rgy-fish oil (Fish OiL) 1,000 (120-180) mg capsule, Take 1 capsule by mouth in the morning., Disp: , Rfl: omeprazole (PriLOSEC OTC) 20 mg tablet,delayed release (DR/EC), Take 1 tablet (20 mg total) by mouth daily., Disp: 30 each, Rfl: 11 clindamycin (CLEOCIN PEDIATRIC) 15 mg/mL solution, Take 10 mL TID x 10 days (Patient not taking: Reported on 05/23/2021), Disp: 300 mL, Rfl: 0 nicotine, polacrilex, 2 mg mini lozenge, Apply 2 mg to cheek every 4 (four) hours as needed (craving)., Disp: 90 each, Rfl: 3 prednisoLONE (PRELONE) 15 mg/5 mL syrup, Take 10 mL PO QD x 5 days (Patient not taking: Reported on 05/23/2021), Disp: 50 mL, Rfl: 0 varenicline (CHANTIX STARTING MONTH BOX) 0.5 mg (11)- 1 mg (42) tablet, Take 0.5 mg one daily on days 1-3 and 0.5 mg twice daily on days 4-7. Then 1 mg twice daily for a total of 12 weeks. (Patient not taking: Reported on 05/23/2021), Disp: 53 tablet, Rfl: 0 Past Medical History: Diagnosis Date Allergic Cancer ([facility]) 2005 left breast Dental disease full dentures Disease of thyroid gland Hyperlipidemia Hypothyroidism Past Surgical History: Procedure Laterality Date BIOPSY LARYNX Bilateral 05/30/2020 Performed by Leobardo Chaudhari MD PhD at [facility] EXPRESS BREAST LUMPECTOMY Left CARPAL TUNNEL RELEASE CATARACT EXTRACTION CHOLECYSTECTOMY INTRAOCULAR LENS INSERTION KNEE ARTHROSCOPY Left 2005 MICROLARYNGOSCOPY DIRECT FROZEN SECION Bilateral 05/30/2020 Performed by Leobardo Chaudhari MD PhD at [facility] EXPRESS OVARIAN CYST REMOVAL TONSILLECTOMY TRIGGER FINGER RELEASE TUBAL LIGATION Family History Problem Relation Age of Onset Heart disease Mother Stroke Mother Cancer Father lung Social History Socioeconomic History Marital status: Spouse name: Not on file Number of children: Not on file Years of education: Not on file Highest education level: Not on file Occupational History Not on file Tobacco Use Smoking status: Every Day Current packs/day: 1.00 Average packs/day: 1 pack/day for 40.0 years (40.0 ttl pk-yrs) Types: Cigarettes Smokeless tobacco: Never Vaping Use Vaping status: Never Used Substance and Sexual Activity Alcohol use: Yes Comment: occassional Drug use: Never Sexual activity: Defer Other Topics Concern Coffee Not Asked Tea Not Asked Carbonated Beverages Not Asked Chocolate Not Asked Caffeine Use Yes Social History Narrative Not on file Social Drivers of Health Financial Resource Strain: Low Risk (11/12/2023) Received from [facility] Overall Financial Resource Strain (CARDIA) Difficulty of Paying Living Expenses: Not hard at all Food Insecurity: No Food Insecurity (11/12/2023) Received from [facility] Hunger Vital Sign Worried About Running Out of Food in the Last Year: Never true Ran Out of Food in the Last Year: Never true Transportation Needs: No Transportation Needs (11/12/2023) Received from [facility] PRAPARE - Transportation Lack of Transportation (Medical): No Lack of Transportation (Non-Medical): No Physical Activity: Inactive (11/12/2023) Received from [facility] Exercise Vital Sign Days of Exercise per Week: 0 days Minutes of Exercise per Session: 0 min Stress: No Stress Concern Present (11/12/2023) Received from [facility] [employer] [place] [employer] - Occupational Stress Questionnaire Feeling of Stress : Not at all Social Connections: Unknown (11/12/2023) Received from [facility] Social Connection and Isolation Panel [NHANES] Frequency of Communication with Friends and Family: Once a week Frequency of Social Gatherings with Friends and Family: Once a week Attends Jew Services: Patient declined Active Member of Clubs or Organizations: No Attends Club or Organization Meetings: Never Marital Status: Interpersonal Safety: Not on file Housing Instability: Unknown (11/12/2023) Received from [facility] Housing Stability Vital Sign Unable to Pay for Housing in the Last Year: No Number of Times Moved in the Last Year: Not on file Homeless in the Last Year: No Allergies Allergen Reactions Atorvastatin Penicillins Rash The following portions of the patient's history were reviewed and updated as appropriate: allergies, current medications, past family history, past medical history, past social history, past surgical history and problem list. Review of Systems: Review of Systems Objective: Vitals BP 120/76 Pulse 83 Ht 165.1 cm (5' 5 ) Wt 92.5 kg (204 lb) SpO2 94% BMI 33.95 kg/m Physical Exam General appearance: awake, alert, oriented, no acute distress HEENT: supple, no cervical lymphadenopathy, no JVD CV: RRR, no murmurs PULM: CTAB, no wheezing ABD: soft, NT/ND, no masses NEURO: Negative for focal deficit, weakness or loss of sensation. EXT: No deformities or skin discoloration. No clubbing, cyanosis, or edema. Studies Reviewed - No results found for: DDIMER Lab Results Component Value Date GLU 86 08/29/2021 CALCIUM 9.4 08/29/2021 SODIUM 142 08/29/2021 K 4.6 08/29/2021 CO2 26 08/29/2021 BUN 17 08/29/2021 CREATININE 0.80 08/29/2021 Lab Results Component Value Date WBC 5.7 08/29/2021 HGB 14.5 08/29/2021 HCT 41.2 08/29/2021 MCV 95 08/29/2021 PLT 231 08/29/2021 Assesment: Shweta was seen today for new patient. Diagnoses and all orders for this visit: Lower extremity edema - Vas venous duplex insufficiency lwr bi; Future - Compression stockings Dyslipidemia Continue statins. Other orders - nicotine, polacrilex, 2 mg mini lozenge; Apply 2 mg to cheek every 4 (four) hours as needed (craving). Patient reports bilateral lower extremity feet numbness. She does have mild bilateral extremity edema. Advised to wear compression stockings. Will plan a venous insufficiency study rule out significant venous reflux. She currently smokes we have extensively discussed smoking cessation. Will order nicotine replacement therapy. Discussed that her smoking may cause microvascular disease and contributed to her symptoms. Will follow patient closely and reassess symptoms. PVR testing reviewed, normal ABIs bilaterally. She has Warm feet on exam and popliteal DP and PT pulses. This note was created with the assistance of a speech recognition program. While intending to generate a timely document that accurately reflects the content of the visit, no guarantee can be provided that every grammatical or spelling mistake has been or will be identified or corrected. Thank you for your understanding. Mike Gant MD, AKSHAT, [facility], [facility], [facility] Interventional Cardiology and Endovascular Interventions [facility] documented in this encounter [facility] 08-17-2024 Miscellaneous Notes Called patient to remind them to bring their most current copy of their medication list with them to their appt. Patient verbalizes understanding. documented in this encounter [facility] 08-17-2024 Telephone encounter Note Called patient to remind them to bring their most current copy of their medication list with them to their appt. Patient verbalizes understanding. [facility] 08-12-2024 History of Present illness Narrative Associated Problem(s): Other fatigue Will check labs including thyroid Consideration for cardiac or pulmonary etiology Past EKG RBBB, echo from 2023: EF 50% Will order EKG, may need stress test based on strong family hx of CAD Associated Problem(s): Vitamin D deficiency Vit d supplement Associated Problem(s): Numbness and tingling of both feet Check Vit b12 Also is seeing vascular doctor upcoming Pt would like to discuss weight gain and her thyroid medication she states she has been very fatigue in the last couple years Pt takes a B complex otc 2x daily Images from the original note were not included. Bertha Galarza is a 74 y.o. female presents with chief complaint of Follow-up (Left ear pain) HPI: Thyroid : for over 25 years, had a goiter, no surgery, endo started on meds (was in [place]), did not want to travel, then PCP took over. +tired and sluggish, no constipation, hair is thinning, no swelling in legs, occ swallowing difficulty, no pain. Take med daily, usually w water, and then drinks a cup of coffee that is her normal routine, no other meds/supplements Family hx of premature CAD, she has never had a stress test, did have an ECHO last year she believes SUBJECTIVE: MEDICATIONS: Current Outpatient Medications Medication Instructions Alpha Lipoic Acid 200 mg, Oral, 2 times daily aspirin 81 mg, Oral, Daily cholecalciferol (VITAMIN D-3) 125 mcg, Oral, Daily fish oil concentrate 2 g, Oral, 2 times daily Y-Gjfzvyfsebtg-Palqv-B12-B6 (Metanx) 3-90.314-2-35 MG capsule 3 mg, Oral, 2 times daily levothyroxine (SYNTHROID) 75 mcg, Oral, Daily before breakfast rosuvastatin (CRESTOR) 40 mg, Oral, Every evening ALLERGIES: Allergies Allergen Reactions Atorvastatin Other myalgias Penicillins Hives, Itching and Rash REVIEW OF SYMPTOMS: Review of Systems Constitutional: Positive for fatigue. Negative for appetite change, chills and fever. HENT: Negative for congestion, ear pain and sore throat. Eyes: Negative for pain, discharge, redness and visual disturbance. Respiratory: Negative for cough, shortness of breath and wheezing. Cardiovascular: Negative for chest pain, palpitations and leg swelling. Gastrointestinal: Negative for abdominal pain, blood in stool, constipation, diarrhea, nausea and vomiting. Genitourinary: Negative for difficulty urinating, dysuria and frequency. Musculoskeletal: Negative for arthralgias, back pain, joint swelling and myalgias. Skin: Negative for rash and wound. Neurological: Negative for dizziness, tremors, seizures, syncope and headaches. Psychiatric/Behavioral: Negative for behavioral problems, self-injury and suicidal ideas. The patient is not nervous/anxious. Hematological: Does not bruise/bleed easily. Endocrine: Negative for polydipsia, polyphagia and polyuria. Allergic/Immunologic: Negative for environmental allergies and food allergies. PAST MEDICAL HISTORY Past Medical History: Diagnosis Date Actinic keratosis Cancer ([facility]/H[facility]) [id number] Cataract Dry eyes Family history of thyroid problem High cholesterol ([facility]) Hx of breast cancer 2006 Personal [...] in her mother. OBJECTIVE: Visit Vitals BP 120/72 (BP Location: Right arm, Patient Position: Sitting, BP Cuff Size: Adult long) Pulse 82 Temp 97.6 F (Temporal) Resp 20 Wt 203 lb 12.8 oz LMP (LMP Unknown) SpO2 94% BMI 32.89 kg/m OB Status Postmenopausal Smoking Status Every Day BSA 2.07 m Physical Exam Vitals and nursing note reviewed. Constitutional: General: She is not in acute distress. Appearance: Normal appearance. HENT: Head: Normocephalic and atraumatic. Right Ear: External ear normal. Left Ear: External ear normal. Nose: Nose normal. Mouth/Throat: Mouth: Mucous membranes are moist. Eyes: Extraocular Movements: Extraocular movements intact. Conjunctiva/sclera: Conjunctivae normal. Neck: Vascular: No carotid bruit. Cardiovascular: Rate and Rhythm: Normal rate and regular rhythm. Pulses: Normal pulses. Heart sounds: Normal heart sounds. Pulmonary: Effort: Pulmonary effort is normal. Breath sounds: Normal breath sounds. Abdominal: General: Bowel sounds are normal. There is no distension. Palpations: Abdomen is soft. There is no mass. Tenderness: There is no abdominal tenderness. Musculoskeletal: General: Normal range of motion. Cervical back: Normal range of motion and neck supple. Right lower leg: No edema. Left lower leg: No edema. Skin: General: Skin is warm and dry. Capillary Refill: Capillary refill takes 2 to 3 seconds. Findings: No rash. Neurological: General: No focal deficit present. Mental Status: She is alert and oriented to person, place, and time. Psychiatric: Mood and Affect: Mood normal. Behavior: Behavior normal. Thought Content: Thought content normal. Judgment: Judgment normal. ASSESSMENT AND PLAN: Follow up in about 6 weeks (around 09/23/2024) for Recheck. Problem List Items Addressed This Visit Hypothyroid (CMS/HCC) - Primary Current medication: levothyroxine Check labs yearly and prn dose change or changes in sxs Unsure if this is the cause of fatigue, will check Relevant Medications levothyroxine (Synthroid) 75 MCG tablet Other Relevant Orders TSH T4, free T3, free Hyperlipidemia (CMS/HCC) Current meds fish oil, and crestor Check labs yearly and prn Relevant Medications rosuvastatin (Crestor) 40 MG tablet aspirin 81 MG EC tablet Other Relevant Orders ECG 12 lead Tobacco dependence The patient has been advised of the risks of continued smoking: stroke, UT, all forms of cancer, lung disease, and . Options for quitting smoking include: cold turkey, hypnosis, acupuncture, nicotine replacement meds (gum, lozenges, and patches), Buproprion, and Varenicline. At this time pt is encouraged to evaluate their goals for wanting to quit smoking, and reach out to provider when ready to start this process Relevant Orders ECG 12 lead Vitamin D deficiency Vit d supplement Relevant Medications cholecalciferol (Vitamin D-3) 125 MCG (5000 UT) capsule Acute otitis externa of left ear Other fatigue Will check labs including thyroid Consideration for cardiac or pulmonary etiology Past EKG RBBB, echo from 2023: EF 50% Will order EKG, may need stress test based on strong family hx of CAD Relevant Orders Vitamin B12 CBC and differential Iron level ECG 12 lead Numbness and tingling of both feet Check Vit b12 Also is seeing vascular doctor upcoming Relevant Orders Vitamin B12 CBC and differential Family history of coronary artery disease Relevant Orders ECG 12 lead Associated Problem(s): Tobacco dependence The patient has been advised of the risks of continued smoking: stroke, UT, all forms of cancer, lung disease, and . Options for quitting smoking include: cold turkey, hypnosis, acupuncture, nicotine replacement meds (gum, lozenges, and patches), Buproprion, and Varenicline. At this time pt is encouraged to evaluate their goals for wanting to quit smoking, and reach out to provider when ready to start this process Associated Problem(s): Hyperlipidemia (CMS/HCC) Current meds fish oil, and crestor Check labs yearly and prn Associated Problem(s): Hypothyroid (CMS/HCC) Current medication: levothyroxine Check labs yearly and prn dose change or changes in sxs Unsure if this is the cause of fatigue, will check documented in this encounter [facility] 08-12-2024 Instructions Delmi Love NP - 08/12/2024 1:40 PM EDT Check labs Check EKG, may need a stress test documented in this encounter [facility] 07-21-2024 Telephone encounter Note Reviewed noninvasive arterial studies. There seems to be some very mild disease on the right lower extremity. Based on her symptomatology I recommend following up with vascular to discuss options. Thank you. [facility] 07-21-2024 Miscellaneous Notes Reviewed noninvasive arterial studies. There seems to be some very mild disease on the right lower extremity. Based on her symptomatology I recommend following up with vascular to discuss options. Thank you. documented in this encounter [facility] 07-17-2024 Telephone encounter Note I would recommend that she purchase an wiew-klz-bskupng vitamin-B complex and I will send a prescription for alpha lipoic acid to her pharmacy. Thank you Victor Hugo. [facility] 07-17-2024 Miscellaneous Notes I would recommend that she purchase an nfnq-jaf-qrcastw vitamin-B complex and I will send a prescription for alpha lipoic acid to her pharmacy. Thank you Victor Hugo. Patient called stating that the Rx is too costly and that she would like you to send in the other medications you mentioned at her appointment. documented in this encounter [facility] 07-16-2024 History of Present illness Narrative Associated Problem(s): Acute otitis externa of left ear Atb drops Fu in 3 weeks for recheck Pt states she has been feeling under the weather for a while now, the last time she seen kunal she mentioned to her that her left ear was hurting. Kunal recommending using a liquid oil to drop in her ear however it did not help. Pt at times haves some soreness in the throat and drainage, the pain is mostly in her left ear but right ear pops sometimes as well. Images from the original note were not included. Bertha Galarza is a 74 y.o. female presents with chief complaint of No chief complaint on file. HPI: Pt states she has been feeling under the weather for a while now, the last time she seen kunal she mentioned to her that her left ear was hurting. Kunal recommending using a liquid oil to drop in her ear however it did not help. Pt at times haves some soreness in the throat and drainage, the pain is mostly in her left ear but right ear pops sometimes as well. Earache There is pain in the left ear. This is a new problem. The current episode started more than 1 month ago. The problem occurs constantly. The problem has been waxing and waning. There has been no fever. Associated symptoms include a sore throat. Pertinent negatives include no abdominal pain, coughing, diarrhea, ear discharge, headaches, rash or vomiting. She has tried nothing for the symptoms. SUBJECTIVE: MEDICATIONS: Current Outpatient Medications Medication Instructions aspirin 81 mg, Daily fish oil concentrate 2 g, Oral, 2 times daily F-Jaxvhctixaql-Rtogk-B12-B6 (Metanx) 3-90.314-2-35 MG capsule 3 mg, Oral, 2 times daily levothyroxine (SYNTHROID) 75 mcg, Oral, Daily before breakfast montelukast (Singulair) 10 MG tablet ofloxacin (Floxin) 0.3 % otic solution 10 drops, Left Ear, Daily rosuvastatin (CRESTOR) 40 mg, Oral, Daily ALLERGIES: Allergies Allergen Reactions Atorvastatin Other myalgias Penicillins Hives, Itching and Rash REVIEW OF SYMPTOMS: Review of Systems Constitutional: Negative for appetite change, chills and fever. HENT: Positive for ear pain and sore throat. Negative for congestion and ear discharge. Eyes: Negative for pain, discharge, redness and visual disturbance. Respiratory: Negative for cough, shortness of breath and wheezing. Cardiovascular: Negative for chest pain, palpitations and leg swelling. Gastrointestinal: Negative for abdominal pain, blood in stool, constipation, diarrhea, nausea and vomiting. Genitourinary: Negative for difficulty urinating, dysuria and frequency. Musculoskeletal: Negative for arthralgias, back pain, joint swelling and myalgias. Skin: Negative for rash and wound. Neurological: Negative for dizziness, tremors, seizures, syncope and headaches. Psychiatric/Behavioral: Negative for behavioral problems, self-injury and suicidal ideas. The patient is not nervous/anxious. Hematological: Does not bruise/bleed easily. Endocrine: Negative for polydipsia, polyphagia and polyuria. Allergic/Immunologic: Negative for environmental allergies and food allergies. PAST MEDICAL HISTORY Past Medical History: Diagnosis Date Actinic keratosis Cancer (CMS/HCC) 464566 Cataract Dry eyes Family history of thyroid problem High cholesterol (CMS/HCC) Hx of breast cancer 2006 Personal history [...] in her mother. OBJECTIVE: Visit Vitals BP 108/70 (BP Location: Left arm, Patient Position: Sitting, BP Cuff Size: Adult long) Pulse 95 Temp 98.3 F (Temporal) Resp 18 Wt 202 lb 3.2 oz LMP (LMP Unknown) SpO2 97% BMI 32.64 kg/m OB Status Postmenopausal Smoking Status Every Day BSA 2.07 m Physical Exam Vitals and nursing note reviewed. Constitutional: General: She is not in acute distress. Appearance: Normal appearance. HENT: Head: Normocephalic and atraumatic. Right Ear: Tympanic membrane, ear canal and external ear normal. Left Ear: External ear normal. Ears: Comments: Inflammed canal left Nose: Rhinorrhea present. Mouth/Throat: Mouth: Mucous membranes are moist. Pharynx: No oropharyngeal exudate or posterior oropharyngeal erythema. Eyes: Extraocular Movements: Extraocular movements intact. Conjunctiva/sclera: Conjunctivae normal. Cardiovascular: Rate and Rhythm: Normal rate and regular rhythm. Pulses: Normal pulses. Heart sounds: Normal heart sounds. Pulmonary: Effort: Pulmonary effort is normal. Breath sounds: Normal breath sounds. Musculoskeletal: General: Normal range of motion. Cervical [...] Judgment normal. ASSESSMENT AND PLAN: Follow up in about 3 weeks (around 08/06/2024) for Recheck. Problem List Items Addressed This Visit Tobacco dependence The patient has been advised of the risks of continued smoking: stroke, UT, all forms of cancer, lung disease, and . Options for quitting smoking include: cold turkey, hypnosis, acupuncture, nicotine replacement meds (gum, lozenges, and patches), Buproprion, and Varenicline. At this time pt is encouraged to evaluate their goals for wanting to quit smoking, and reach out to provider when ready to start this process Acute otitis externa of left ear - Primary Atb drops Fu in 3 weeks for recheck Relevant Medications ofloxacin (Floxin) 0.3 % otic solution Associated Problem(s): Tobacco dependence The patient has been advised of the risks of continued smoking: stroke, UT, all forms of cancer, lung disease, and . Options for quitting smoking include: cold turkey, hypnosis, acupuncture, nicotine replacement meds (gum, lozenges, and patches), Buproprion, and Varenicline. At this time pt is encouraged to evaluate their goals for wanting to quit smoking, and reach out to provider when ready to start this process documented in this encounter [facility] 07-16-2024 Instructions Delmi Love NP - 07/16/2024 11:45 AM EDT Ear drops to left ear documented in this encounter [facility] 07-16-2024 Telephone encounter Note Patient called stating that the Rx is too costly and that she would like you to send in the other medications you mentioned at her appointment. [facility] 07-15-2024 History of Present illness Narrative Images from the original note were not included. Subjective Patient ID: Bertha Galarza is a 74 y.o. 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 Pt states she has trouble walking. RGT pain, 4th digit left foot corn. Pt also relates callus on lateral dorsal foot. And relates pain, numbness with toes, also relates swelling. No recent xrays. Did purchase insoles from the [employer] but states they hurt her feet. SS: 10). HPI This is a new patient who presents to clinic with concern of bilateral foot pain. She describes numbness, burning, tingling sensations that are present at all times. Seems to be worse the more she is on her feet. She describes a lot of cramping sensations in the feet and describes some fatigue sensations in the thighs and buttocks region. She has not tried any treatment other than various orthotic devices that have not helped at all. She does smoke daily. Review of Systems Constitutional: Negative for activity [...] Medical History: Diagnosis Date Actinic keratosis Cancer ([facility]) 361164 Cataract Dry eyes Family history of thyroid problem High cholesterol ([facility]) Hx of breast cancer 2006 Personal history of other medical treatment thyroid Medications Current Outpatient Medications: aspirin 81 MG EC tablet, Take 81 mg by mouth Daily, Disp: , Rfl: fish oil concentrate (Nome-3) 1000 MG capsule, Take 2 capsules (2 g) by mouth in the morning and 2 capsules (2 g) before bedtime., Disp: 120 capsule, Rfl: 2 levothyroxine (Synthroid) 75 MCG tablet, Take 1 tablet (75 mcg) by mouth in the morning. Take before meals., Disp: 30 tablet, Rfl: 2 rosuvastatin (Crestor) 40 MG tablet, Take 1 tablet (40 mg) by mouth Daily, Disp: 90 tablet, Rfl: 1 albuterol HFA 90 mcg/act inhaler, Inhale 2 puffs every 6 (six) hours if needed for wheezing or shortness of breath, Disp: 18 g, Rfl: 0 fluticasone (Flonase) 50 MCG/ACT nasal spray, Administer 1 spray into each nostril in the morning., Disp: 16 g, Rfl: 3 L-Njaeduaurwpv-Rbtjm-B12-B6 (Metanx) 3-90.314-2-35 MG capsule, Take 3 mg by mouth in the morning and 3 mg before bedtime., Disp: 180 capsule, Rfl: 3 montelukast (Singulair) 10 MG tablet, , Disp: , Rfl: Allergies Atorvastatin and Penicillins Past Surgical History Past Surgical History: Procedure Laterality Date CARPAL TUNNEL RELEASE Right 04/05/2023 DR FIGUEROA CATARACT EXTRACTION INTRAOCULAR LENS INSERTION 02/2023 KNEE SURGERY Left 2005 Dr Gr OTHER SURGICAL HISTORY 05/2020 Nodule removed on esophgus PARS PLANA VITRECTOMY W/ EMP STRIPPING Bilateral 2021 [facility] TOTAL KNEE ARTHROPLASTY Left 09/21/2021 DR GR TRIGGER FINGER RELEASE Right 02/07/2021 (R) MF ; DR GR Family History Family History Problem Relation Name Age of Onset Diabetes Mother Georgia Stroke Mother [place] Cancer Father Rufus Cancer Sister Claudia Cancer Other [facility] Melanoma Neg Hx Objective Physical Exam Constitutional: [...] Range of motion of the 1st MTP limited to about 20 degrees of dorsiflexion. No crepitus bilaterally. No tenderness with range of motion of the 1st MTP bilaterally. No tenderness to the forefoot noted. Muscle strength 4/5 for all quadrants. Ankle dorsiflexion 0 degrees with the knee extended, flexed. Skin: Capillary Refill: Capillary refill takes 2 to 3 seconds. Findings: No lesion or rash. Comments: Slightly thin. Hair growth absent. Neurological: Mental Status: She is alert. Comments: Negative Tinel sign with percussion of the tibial nerves, deep peroneal nerves, common peroneal nerves, superficial peroneal nerves bilaterally. Negative straight leg raise test bilaterally. Psychiatric: Mood and Affect: Mood normal. Behavior: Behavior normal. XR foot 3+ views right Imaging Result: AP, medial oblique, lateral views are weight-bearing. No acuteFractures or dislocations. Joints appear well-maintained with the exception of the 1st MTP which has some slight joint space narrowing, periarticular osteophytes very minimally. There is very slight increased IM 1-2 angle and very slight lateral deviation of the sesamoid complex. There is slight increase in SEPULVEDA angle. XR foot 3+ views left Imaging Result: AP, medial oblique, lateral views are weight-bearing. No acuteFractures or dislocations. Joints appear well-maintained with the exception of the 1st MTP which has some slight joint space narrowing, periarticular osteophytes very minimally. There is very slight increased IM 1-2 angle and very slight lateral deviation of the sesamoid complex. There is slight increase in SEPULVEDA angle. Assessment/Plan ICD-10-CM 1. Neuropathy, idiopathic G60.9 G-Chwivuzpftrl-Jfgri-B12-B6 (Metanx) 3-90.314-2-35 MG capsule 2. Neuritis M79.2 R-Lsqhigknjgfi-Rcxkm-B12-B6 (Metanx) 3-90.314-2-35 MG capsule 3. Pain in both feet M79.671 XR foot 3+ views right M79.672 XR foot 3+ views left 4. Peripheral vascular disease (CMS/HCC) I73.9 VASC US PVR/SEGMENTAL PRESSURES LOWER 5. Smoker F17.200 Patient examined and evaluated. Three views of bilateral feet taken in office today and I discussed my findings. She has a fairly benign musculoskeletal examination. She does have some prominent medial eminence and lateral deviation of the hallux consistent with hallux valgus deformity bilaterally but this does not seem to be causing the symptoms that she is experiencing. She describes a lot of nerve type symptoms with burning and tingling sensations as well as numbness sensations that seem to worsen throughout the day. I do not appreciate any clinical exam findings to suggest lower extremity nerve entrapment. Most notable is her vascular evaluation and I think that she describes some subjective symptoms that are concerning for claudication symptoms as well. I think that this is also contributing to the nerve pain as the nerves are likely not getting appropriate nourishment. At this time I recommend that we start with Metanx therapy which will address both the nerve issues and the claudication symptoms that she is experiencing at the distal digits. Prescription was sent to [facility] and she was given a sample pack today to start. Additionally I recommend noninvasive arterial studies giving her smoking history and the subjective concerns that she is describing. This was ordered and sent to [facility].I will review these results and if appropriate refer her to vascular. I would like to see her back in 3 months to follow up on the Metanx therapy. If this is cost prohibitive for her I have asked her to call our office and we will have her take a vitamin-B complex [id number] and I will send in a prescription for alpha lipoic acid. This note was created with the assistance of a speech recognition program. While intending to generate a timely document that accurately reflects the content of the visit, no guarantee can be provided that every grammatical or spelling mistake has been or will be identified or corrected. Thank you for your understanding. Darien Blanca DPM documented in this encounter [facility] 06-02-2024 Note Cardiology Clinic No te HPI: [...] concerns. Julio Cesar Borrego MD Interventional Cardiology [facility] 05-28-2024 History of Present illness Narrative Associated Problem(s): Hypertriglyceridemia (CMS/HCC) Most recent Lipid Panel Triglycerides were still elevated at 313 but a decrease from previous of 430. Pt discussed initiating Fenofibrate with Singe Machine Operator- he recommended and initiated Aspirin 81mg at [...] of 430. Pt discussed initiating Fenofibrate with Singe Machine Operator- he recommended and initiated Aspirin 81mg at [...] in 3 months. documented in this encounter [facility] 05-25-2024 Note Right Eye Quality was good. Scan locations included subfoveal. Progression has been stable. Findings include normal observations. Left Eye Quality was good. Scan locations included subfoveal. Progression has been stable. Findings include abnormal foveal contour. Notes Good scan with normal appearance right eye (OD) [facility] 05-25-2024 History of Present illness Narrative Assessment/Plan [...] scrubs were recommended. documented in this encounter [facility] 05-01-2024 Procedure note [facility] 05-01-2024 History and physi samara note [facility] 04-13-2024 History of Present illness Narrative Associated Problem(s): Tobacco dependence The patient has been advised of the risks of continued smoking: stroke, UT, all forms of cancer, lung disease, and [...] Medical History: Diagnosis Date Actinic keratosis Cancer ([facility]) [id number] Cataract Dry eyes Family history of thyroid problem High cholesterol ([facility]) Hx of breast cancer 2006 Personal [...] GR TRIGGER FINGER RELEASE Right 02/07/2021 (R) ; DR GR family history includes Cancer [...] of the risks of continued smoking: stroke, UT, all forms of cancer, lung disease, and [...] 100 MG tablet documented in this encounter [facility] 04-13-2024 Instructions Delmi Love NP - 04/13/2024 11:30 AM EST Fluids, rest, atb, steroids, and inhaler If not better contact office documented in this encounter [facility] 03-23-2024 History of Present illness Narrative Skin [...] Hands Examined Digits,nails: Examined Patient wearing nail fijian, Denies dark streaks under finger nails Lymphatics: [...] year skin exam documented in this encounter [facility] 02-27-2024 History of Present illness Narrative Images [...] mg by mouth Daily fish oil concentrate (Nome-3) 1000 MG capsule Take 2 capsules (2 [...] Stephanie Peters OD as Referring Physician (Optometry) Kunal Ortiz NP as Nurse Practitioner (Family Medicine) [...] Do you have a medical power of estate planning attorney?: No Objective : BP 128/64 Pulse [...] Print requisition? Answer: No Electronically signed by Kunal Ortiz NP on February 27, 2024 documented in this encounter [facility] 02-13-2024 History of Present illness Narrative Patient: [...] Medical History: Diagnosis Date Actinic keratosis Cancer ([facility]) [id number] Cataract Dry eyes Family history of thyroid problem High cholesterol ([facility]) Hx of breast cancer 2006 Personal [...] min Stress: No Stress Concern Present (11/12/2023) [employer] - Occupational Stress Questionnaire Feeling of Stress : Not at all Social Connections: Unknown (11/12/2023) Social Connection and Isolation Panel [NHANES] Frequency of Communication with Friends and Family: Once a week Frequency of Social Gatherings with Friends and Family: Once a week Attends Jew Services: Patient declined Active Member of [employer] [...] pathological diagnosis of specimen. Patient may take ionb-sek-gqnrsxl NSAID p.r.n. for pain Application of salinocaine acid medication to lesion/lesions located at right foot Informed pt of risks and benefits of procedure including high reoccurence rate, infection, pain and consent given. Application of DSD post procedure. Patient to continue with oral anti - inflammatories as needed for pain and recommended OTC medications such as tylenol or Ibuprofen Discussed accommodative custom inserts and ztk-ue-[id number] cost has not covered by insurance patient may consider in the future but did recommend [id number] inserts at this time Ben Roe DPM documented in this encounter [facility] 12-19-2023 History of Present illness Narrative Associated Problem(s): Prediabetes Dietary tips and recommendations given. Continue to implement lifestyle and dietary modifications. Recheck A1C in February. Associated Problem(s): Hypertriglyceridemia (CMS/HCC) Most recent Lipid Panel Triglycerides were still elevated at 430 Pt discussed initiating Fenofibrate with Singe Machine Operator- he recommended and initiated Aspirin 81mg at [...] CHOL HDL RATIO 3.9 CM Resulting Agency TB TB TBH Component Ref Range & Units 1 [...] at 430 Pt discussed initiating Fenofibrate with Singe Machine Operator- he recommended and initiated Aspirin 81mg at [...] with next mammogram. documented in this encounter [facility] 12-19-2023 Instructions Kunal Ortiz NP - 12/19/2023 11:30 AM EDT [...] vigorous aerobic activity. documented in this encounter [facility] 12-04-2023 Note Cardiology Clinic No te Chief [...] concerns. Julio Cesar Borrego MD Interventional Cardiology [facility] 05-24-2023 History of Present illness Narrative Images [...] is normal. Strength additional comments: 5/5 [employer] Neurovascular Right Right neurovascular exam is [...] evaluation. JANINA Jackson documented in this encounter [facility] 11-26-2021 Evaluation note Encounter Date Diagnosis Assessment [...] understanding and is agreeable to treatment plan [facility] Other Evaluation noteNo assessment information available [facility] Work Phone: Evaluation note* Diagnosis S/P carpal tunnel release- Primary Other postprocedural status Right hand pain Pain in soft tissues of limb Arthritis of carpometacarpal (CMC) joint of right thumb [facility] [...] unspecified type (CMS/HCC) [facility] encounter [facility]* Diagnosis Hypertriglyceridemia (CMS/HCC)- Primary Pure [...] deficiency- Primary [facility] in this [facility] [...] Other abnormal glucose Hypertriglyceridemia (CMS/HCC) Pure hyperglyceridemia Neuropathy, idiopathic- Primary Other specified idiopathic peripheral neuropathy Neuritis Unspecified neuralgia, neuritis, and radiculitis Pain in both feet Peripheral vascular disease (CMS/HCC) Unspecified peripheral vascular disease Smoker Tobacco use disorder documented in this encounter [...] Other abnormal glucose Hypertriglyceridemia (CMS/HCC) Pure hyperglyceridemia Acute otitis externa of left ear, unspecified type- Primary Tobacco dependence Tobacco use disorder documented in [...] Other abnormal glucose Hypertriglyceridemia (CMS/HCC) Pure hyperglyceridemia Acute otitis externa of left ear, unspecified type- Primary Tobacco dependence Tobacco use disorder Neuritis- Primary Unspecified neuralgia, neuritis, and radiculitis Neuropathy, idiopathic Other specified idiopathic peripheral neuropathy [facility] [...] Other abnormal glucose Hypertriglyceridemia (CMS/HCC) Pure hyperglyceridemia Acute otitis externa of left ear, unspecified type- Primary Tobacco dependence Tobacco use disorder Peripheral vascular disease (CMS/HCC)- Primary Unspecified peripheral vascular disease Smoker Tobacco use disorder documented in this encounter [...] Other abnormal glucose Hypertriglyceridemia (CMS/HCC) Pure hyperglyceridemia Acute otitis externa of left ear, unspecified type- Primary Tobacco dependence Tobacco use disorder Mixed hyperlipidemia (CMS/HCC) Mixed hyperlipidemia documented in this encounter [facility] [...] Other abnormal glucose Hypertriglyceridemia (CMS/HCC) Pure hyperglyceridemia Acute otitis externa of left ear, unspecified type- Primary Tobacco dependence Tobacco use disorder Hypothyroidism, unspecified type (CMS/HCC) documented in this [...] Other abnormal glucose Hypertriglyceridemia (CMS/HCC) Pure hyperglyceridemia Acute otitis externa of left ear, unspecified type- Primary Tobacco dependence Tobacco use disorder Hyperlipidemia, unspecified hyperlipidemia type (CMS/HCC) documented in this encounter [facility] [...] Other abnormal glucose Hypertriglyceridemia (CMS/HCC) Pure hyperglyceridemia Acute otitis externa of left ear, unspecified type- Primary Tobacco dependence Tobacco use disorder Other fatigue- Primary Hypothyroidism, unspecified type (CMS/HCC) Acute otitis externa of left ear, unspecified type Mixed hyperlipidemia (CMS/HCC) Mixed hyperlipidemia Tobacco dependence Tobacco use disorder Hyperlipidemia, unspecified hyperlipidemia type (CMS/HCC) Numbness and tingling of both feet Vitamin D deficiency Family history of coronary artery disease Family history of ischemic heart disease documented in this encounter [facility]* Diagnosis Lower extremity edema- Primary Edema Dyslipidemia Other and unspecified hyperlipidemia [facility] Diagnosis Hypertriglyceridemia (CMS/HCC)- Primary Pure [...] Other abnormal glucose Hypertriglyceridemia (CMS/HCC) Pure hyperglyceridemia Acute otitis externa of left ear, unspecified type- Primary Tobacco dependence Tobacco use disorder Other fatigue- Primary Hypothyroidism, unspecified type (CMS/HCC) Acute otitis externa of left ear, unspecified type Mixed hyperlipidemia (CMS/HCC) Mixed hyperlipidemia Tobacco dependence Tobacco use disorder Hyperlipidemia, unspecified hyperlipidemia type (CMS/HCC) Numbness and tingling of both feet Vitamin D deficiency Family history of coronary artery disease Family history of ischemic heart disease Vitamin D deficiency- Primary documented in this encounter [facility]* Diagnosis Hypertriglyceridemia (CMS/HCC)- [...] Other abnormal glucose Hypertriglyceridemia (CMS/HCC) Pure hyperglyceridemia Acute otitis externa of left ear, unspecified type- Primary Tobacco dependence Tobacco use disorder Other fatigue- Primary Hypothyroidism, unspecified type (CMS/HCC) Acute otitis externa of left ear, unspecified type Mixed hyperlipidemia (CMS/HCC) Mixed hyperlipidemia Tobacco dependence Tobacco use disorder Hyperlipidemia, unspecified hyperlipidemia type (CMS/HCC) Numbness and tingling of both feet Vitamin D deficiency Family history of coronary artery disease Family history of ischemic heart disease Vitamin D deficiency- Primary [facility] [...] Other abnormal glucose Hypertriglyceridemia (CMS/HCC) Pure hyperglyceridemia Acute otitis externa of left ear, unspecified type- Primary Tobacco dependence Tobacco use disorder Other fatigue- Primary Hypothyroidism, unspecified type (CMS/HCC) Acute otitis externa of left ear, unspecified type Mixed hyperlipidemia (CMS/HCC) Mixed hyperlipidemia Tobacco dependence Tobacco use disorder Hyperlipidemia, unspecified hyperlipidemia type (CMS/HCC) Numbness and tingling of both feet Vitamin D deficiency Family history of coronary artery disease Family history of ischemic heart disease UTI symptoms- Primary [facility]* Diagnosis Hypertriglyceridemia- Primary Pure hyperglyceridemia Bilateral posterior capsular opacification Unspecified after-cataract [place] plaque, 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 Mixed hyperlipidemia Mixed hyperlipidemia Short of breath on exertion Chest heaviness Other chest pain Prediabetes- Primary Other abnormal glucose Hypertriglyceridemia Pure hyperglyceridemia Hypothyroidism, unspecified type Impacted cerumen of left ear Impacted cerumen Acute non-recurrent maxillary sinusitis- Primary Tobacco dependence Tobacco use disorder Acute URI Acute upper respiratory infections of unspecified site Prediabetes- Primary Other abnormal glucose Hypertriglyceridemia Pure hyperglyceridemia Acute otitis externa of left ear, unspecified type- Primary Tobacco dependence Tobacco use disorder Other fatigue- Primary Hypothyroidism, unspecified type Acute otitis externa of left ear, unspecified type Mixed hyperlipidemia Mixed hyperlipidemia Tobacco dependence Tobacco use disorder Hyperlipidemia, unspecified hyperlipidemia type Numbness and tingling of both feet Vitamin D deficiency Family history of coronary artery disease Family history of ischemic heart disease Numbness and tingling of both feet- Primary Tobacco dependence Tobacco use disorder Other fatigue Hypothyroidism, unspecified type Lumbar back pain Lumbago Neck pain Cervicalgia Other chest pain [facility]* Diagnosis Hypertriglyceridemia- Primary Pure hyperglyceridemia Bilateral posterior capsular opacification Unspecified after-cataract [place] plaque, 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 Mixed hyperlipidemia Mixed hyperlipidemia Short of breath on exertion Chest heaviness Other chest pain Prediabetes- Primary Other abnormal glucose Hypertriglyceridemia Pure hyperglyceridemia Hypothyroidism, unspecified type Impacted cerumen of left ear Impacted cerumen Acute non-recurrent maxillary sinusitis- Primary Tobacco dependence Tobacco use disorder Acute URI Acute upper respiratory infections of unspecified site Prediabetes- Primary Other abnormal glucose Hypertriglyceridemia Pure hyperglyceridemia Acute otitis externa of left ear, unspecified type- Primary Tobacco dependence Tobacco use disorder Other fatigue- Primary Hypothyroidism, unspecified type Acute otitis externa of left ear, unspecified type Mixed hyperlipidemia Mixed hyperlipidemia Tobacco dependence Tobacco use disorder Hyperlipidemia, unspecified hyperlipidemia type Numbness and tingling of both feet Vitamin D deficiency Family history of coronary artery disease Family history of ischemic heart disease Numbness and tingling of both feet- Primary Tobacco dependence Tobacco use disorder Other fatigue Hypothyroidism, unspecified type Lumbar back pain Lumbago Neck pain Cervicalgia Other chest pain Numbness and tingling of both feet- Primary Spondylosis of cervical spine Acquired spondylolisthesis of lumbosacral region documented [facility] this [facility]* Diagnosis Hypertriglyceridemia- Primary Pure hyperglyceridemia Bilateral posterior capsular opacification Unspecified after-cataract [place] plaque, 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 Mixed hyperlipidemia Mixed hyperlipidemia Short of breath on exertion Chest heaviness Other chest pain Prediabetes- Primary Other abnormal glucose Hypertriglyceridemia Pure hyperglyceridemia Hypothyroidism, unspecified type Impacted cerumen of left ear Impacted cerumen Acute non-recurrent maxillary sinusitis- Primary Tobacco dependence Tobacco use disorder Acute URI Acute upper respiratory infections of unspecified site Prediabetes- Primary Other abnormal glucose Hypertriglyceridemia Pure hyperglyceridemia Acute otitis externa of left ear, unspecified type- Primary Tobacco dependence Tobacco use disorder Other fatigue- Primary Hypothyroidism, unspecified type Acute otitis externa of left ear, unspecified type Mixed hyperlipidemia Mixed hyperlipidemia Tobacco dependence Tobacco use disorder Hyperlipidemia, unspecified hyperlipidemia type Numbness and tingling of both feet Vitamin D deficiency Family history of coronary artery disease Family history of ischemic heart disease Numbness and tingling of both feet- Primary Tobacco dependence Tobacco use disorder Other fatigue Hypothyroidism, unspecified type Lumbar back pain Lumbago Neck pain Cervicalgia Other chest pain Numbness- Primary Disturbance of skin sensation Paresthesias Disturbance of skin sensation Peripheral polyneuropathy documented in [facility]* Diagnosis Hypertriglyceridemia- Primary Pure hyperglyceridemia Bilateral posterior capsular opacification Unspecified after-cataract [place] plaque, 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 Mixed hyperlipidemia Mixed hyperlipidemia Short of breath on exertion Chest heaviness Other chest pain Prediabetes- Primary Other abnormal glucose Hypertriglyceridemia Pure hyperglyceridemia Hypothyroidism, unspecified type Impacted cerumen of left ear Impacted cerumen Acute non-recurrent maxillary sinusitis- Primary Tobacco dependence Tobacco use disorder Acute URI Acute upper respiratory infections of unspecified site Prediabetes- Primary Other abnormal glucose Hypertriglyceridemia Pure hyperglyceridemia Acute otitis externa of left ear, unspecified type- Primary Tobacco dependence Tobacco use disorder Other fatigue- Primary Hypothyroidism, unspecified type Acute otitis externa of left ear, unspecified type Mixed hyperlipidemia Mixed hyperlipidemia Tobacco dependence Tobacco use disorder Hyperlipidemia, unspecified hyperlipidemia type Numbness and tingling of both feet Vitamin D deficiency Family history of coronary artery disease Family history of ischemic heart disease Numbness and tingling of both feet- Primary Tobacco dependence Tobacco use disorder Other fatigue Hypothyroidism, unspecified type Lumbar back pain Lumbago Neck pain Cervicalgia Other chest pain Neuropathy, idiopathic- Primary Other specified idiopathic peripheral neuropathy Peripheral vascular disease Unspecified peripheral vascular disease Smoker Tobacco use disorder Corns and callosities Left foot pain Pain in soft tissues of limb Neuritis Unspecified neuralgia, neuritis, and radiculitis documented [facility] this encounter [facility] Author Taiwo Rosa [facility] Note Date/Time May 01, 2024 1 0:22am [facility] [address] [place] [address] Gastroenterology H&P Signed Patient: Bertha Galarza MR#: [id number] : 1950 Acct:[id number] Age/Sex: 74 / F Adm Date: 5 Loc: Room: Type: [facility] Attending Dr: Taiwo Rosa MD Copies to: [...] signed by Taiwo Rosa MD> 05/01/24 1022 [facility] Work Phone: History general Narrative - Reported* Type Description Date Medical History Hypothyroid Medical History Hypercholesterolemia Medical History Breast cancer Surgical History colonoscopy Surgical History cholecystectomy Surgical History knee arthroscopy Surgical History tonsillectomy and adenoidectomy Surgical History wisdom teeth Surgical History laparoscopy Surgical History tubal ligation Surgical History biopsy Surgical History left knee replacement 10/04 Hospitalization History see above [facility] Other InstructionsNot on filedocumented in this encounter [facility] SystemInstructionsNot on filedocumented in this encounter [facility] System[facility]* Attachments The following attachments cannot be sent through Care Everywhere. * Quitting smoking for adults (Algerian) [facility] Narrative* Other Medical (Routine) - Closed Specialty Diagnoses / Procedures Referred By Contac t Referred To Contact Neurology Diagnoses Numbness and tingling of both feet Lumbar back pain Procedures EMG AND NERVE CONDUCTION STUDY Delmi Love, JADE [address] [place] [address] Phone: tel: fax: Jamia Guevara MD [address] [facility] [address] [address] Phone: tel: fax: Referral ID Status Reason Start Date Expiration Date Visits Re quested Visits Authorized [id number] Closed 09/24/2024 03/23/2025 1 1 [facility] Chief Complaint and Reason for Visit Chief Complaint lung mass Chief Complaint R30.0 Chief Complaint Admit Date positive cologuard May 01, 2024 9 :29am positive cologuard May 01, 2024 1 0:21am Chief Complaint Admit Date Dysuria September 10, 2024 2:08p m Advance Directives No Advanced Directives Records Found Advance Directive Response Recorded Date/ Time Advance Directives No September 08 2:46pm Advance Directive Response Recorded Date/ Time Advance Directives No September 08 1:46pm Summary Purpose Family History No Family [...] Active Yuliet Perez APRN Attending Provider Active Drop Worker Relationship Specialty Start Date End Date Jose David Godwin MD [address] [place] [address] PCP - General Family Medicine 10/11/22 Drop Worker Relationship Specialty Start Date End Date Jose David Godwin MD [address] [place] [address] PCP - General Family Medicine 10/11/22 Drop Worker Relationship Specialty Start Date End Date Moustapha De Leon MD [address] [place] [phone] PCP - General Family Medicine 11/08/23 Stephanie Peters OD [address] [place] [address] Referring Physician Optometry 11/08/23 Kunal Ortiz NP [address] [facility] [phone] Nurse Practitioner Family Medicine 11/13/23 Drop Worker Relationship Specialty Start Date End Date Moustapha De Leon MD [address] [place] [phone] PCP - General Family Medicine 11/08/23 Stephanie Peters, OD [address] [place] [address] Referring Physician Optometry 11/08/23 Kunal Ortiz NP [address] [place] [phone] Nurse Practitioner Family Medicine 11/13/23 Drop Worker Relationship Specialty Start Date End Date Moustapha De Leon MD [address] [place] [phone] PCP - General Family Medicine 11/08/23 Stephanie Peters, OD [address] [facility] [place] [address] Referring Physician Optometry 11/08/23 Kunal Ortiz NP [address] [place] [address] Nurse Practitioner Family Medicine 11/13/23 Drop Worker Relationship Specialty Start Date End Date Moustapha De Leon MD [address] [place] [phone] PCP - General Family Medicine 11/08/23 Stepahnie Peters, OD [address] [place] [address] Referring Physician Optometry 11/08/23 Kunal Ortiz NP [address] [place] [address] Nurse Practitioner Family Medicine 11/13/23 Drop Worker Relationship Specialty Start Date End Date Moustapha De Leon MD [address] [place] [phone] PCP - General Family Medicine 11/08/23 Stephanie Peters OD [address] [facility] [place] [address] Referring Physician Optometry 11/08/23 Kunla Ortiz NP [address] [place] [address] Nurse Practitioner Family Medicine 11/13/23 Drop Worker Relationship Specialty Start Date End Date Moustapha De Leon MD [address] [place] [phone] PCP - General Family Medicine 11/08/23 Stephanie Peters OD [address] [facility] [place] [address] Referring Physician Optometry 11/08/23 Kunal Ortiz NP [address] [place] [phone] Nurse Practitioner Family Medicine 11/13/23 Drop Worker Relationship Specialty Start Date End Date Moustapha De Leon MD [address] [place] [phone] PCP - General Family Medicine 11/08/23 Stephanie Peters OD [address] [facility] [place] [address] Referring Physician Optometry 11/08/23 Kunal Ortiz NP [address] [place] [address] Nurse Practitioner Family Medicine 11/13/23 Drop Worker Relationship Specialty Start Date End Date Moustapha De Leon MD [address] [place] [phone] PCP - General Family Medicine 11/08/23 Stephanie Peters OD [address] [place] [address] Referring Physician Optometry 11/08/23 Kunal Ortiz NP [address] [place] [address] Nurse Practitioner Family Medicine 11/13/23 Drop Worker Relationship Specialty Start Date End Date Moustapha De Leon MD [address] [place] [phone] PCP - General Family Medicine 11/08/23 Stephanie Peters, HORACE [address] [place] [address] Referring Physician Optometry 11/08/23 Kunal Ortiz NP [address] [place] [address] Nurse Practitioner Family Medicine 11/13/23 Drop Worker Relationship Specialty Start Date End Date Moustapha De Leon MD [address] [place] [address] PCP - General Family Medicine 11/08/23 Stephanie Peters, OD [address] [place] [address] Referring Physician Optometry 11/08/23 Kunal Ortiz NP [address] [place] [address] Nurse Practitioner Family Medicine 11/13/23 Drop Worker Relationship Specialty Start Date End Date Mousatpha De Leon MD [address] [place] [phone] PCP - General Family Medicine 11/08/23 Stephanie Peters, OD [address] [facility] [place] [address] Referring Physician Optometry 11/08/23 Kunal Ortiz, JADE [address] [place] [address] Nurse Practitioner Family Medicine 11/13/23 Drop Worker Relationship Specialty Start Date End Date Moustapha De Leon MD [address] [place] [phone] PCP - General Family Medicine 11/08/23 Stephanie Peters, OD [address] [facility] [place] [address] Referring Physician Optometry 11/08/23 Kunal Ortiz NP [address] [place] [phone] Nurse Practitioner Family Medicine 11/13/23 Drop Worker Relationship Specialty Start Date End Date Moustapha De Leon MD [address] [place] [phone] PCP - General Family Medicine 11/08/23 Stephanie Peters, OD [address] [place] [address] Referring Physician Optometry 11/08/23 Kunal Ortiz NP [address] [place] [address] Nurse Practitioner Family Medicine 11/13/23 Drop Worker Relationship Specialty Start Date End Date Moustapha De Leon MD [address] [place] [phone] PCP - General Family Medicine 11/08/23 Stephanie Peters, OD [address] [place] [address] Referring Physician Optometry 11/08/23 Kunal Ortiz NP [address] [place] [phone] Nurse Practitioner Family Medicine 11/13/23 Team Status: Active Member Role Status Dates ALEX SanfordC Primary Care Provider Ac tive Team Status: Inactive Member Role Status Dates Taiwo Rosa MD Attending Provider Active S tart: May 01, 2024 End: May 01, 2024 Kunal Ortiz HOTEL DESK CLERK-C Primary Care Provider Ac tive Start: May 01, 2024 End: May 01, 2024 Team Status: Active Member Role Status Dates Taiwo Rosa MD Attending Provider, Other Provider Active Start: May 01, 2024 Kunal Ortiz HOTEL DESK CLERK-C Primary Care Provider Active Start: April Drop Worker Relationship Specialty Start Date End Date Moustapha De Leon MD [address] [place] [phone] PCP - General Family Medicine 11/08/23 Stephanie Peters OD [address] [facility] [place] [address] Referring Physician Optometry 11/08/23 Kunal Ortiz NP [address] [place] [address] Nurse Practitioner Family Medicine 11/13/23 Drop Worker Relationship Specialty Start Date End Date Moustapha De Leon MD [address] [place] [phone] PCP - General Family Medicine 11/08/23 Stephanie Peters, OD [address] [facility] [place] [address] Referring Physician Optometry 11/08/23 Kunal Ortiz NP [address] [place] [address] Nurse Practitioner Family Medicine 11/13/23 Drop Worker Relationship Specialty Start Date End Date Moustapha De Leon MD [address] [place] [phone] PCP - General Family Medicine 11/08/23 Stephanie Peters, OD [address] [place] [address] Referring Physician Optometry 11/08/23 Kunal Ortiz, JADE [address] [place] [phone] Nurse Practitioner Family Medicine 11/13/23 Drop Worker Relationship Specialty Start Date End Date Moustapha De Leon MD [address] [place] [phone] PCP - General Family Medicine 11/08/23 Stephanie Peters, OD [address] [facility] [place] [address] Referring Physician Optometry 11/08/23 Kunal Ortiz, HOTEL DESK CLERK [address] [place] [phone] Nurse Practitioner Family Medicine 11/13/23 Drop Worker Relationship Specialty Start Date End Date Moustapha De Leon MD [address] [place] [phone] PCP - General Family Medicine 11/08/23 Stephanie Peters, OD [address] [facility] [place] [address] Referring Physician Optometry 11/08/23 Kunal Ortiz NP [address] [place] [address] Nurse Practitioner Family Medicine 11/13/23 Drop Worker Relationship Specialty Start Date End Date Moustapha De Leon MD [address] [place] [phone] PCP - General Family Medicine 11/08/23 Stephanie Peters, OD [address] [facility] [place] [address] Referring Physician Optometry 11/08/23 Kunal Ortiz NP [address] [place] [phone] Nurse Practitioner Family Medicine 11/13/23 Drop Worker Relationship Specialty Start Date End Date Moustapha De Leon MD [address] [place] [phone] PCP - General Family Medicine 11/08/23 Stephanie Petesr, OD [address] [place] [address] Referring Physician Optometry 11/08/23 Kunal Ortiz NP [address] [place] [address] Nurse Practitioner Family Medicine 11/13/23 Drop Worker Relationship Specialty Start Date End Date Moustapha De Leon MD [address] [place] [phone] PCP - General Family Medicine 11/08/23 Stephanie Pteers, OD [address] [place] [address] Referring Physician Optometry 11/08/23 Drop Worker Relationship Specialty Start Date End Date Moustapha De Leon MD [address] [place] [phone] PCP - General Family Medicine 11/08/23 Stephanie Peters OD [address] [place] [address] Referring Physician Optometry 11/08/23 Delmi Love NP [address] [place] [phone] Nurse Practitioner Family Medicine 07/15/24 Drop Worker Relationship Specialty Start Date End Date Moustapha De Leon MD [address] [place] [phone] PCP - General Family Medicine 11/08/23 Stephanie Peters OD [address] [place] [address] Referring Physician Optometry 11/08/23 Delmi Love NP [address] [place] [phone] Nurse Practitioner Family Medicine 07/15/24 Drop Worker Relationship Specialty Start Date End Date Moustapha De Leon MD [address] [place] [phone] PCP - General Family Medicine 11/08/23 Stephanie Peters, OD [address] [place] [address] Referring Physician Optometry 11/08/23 Delmi Love NP [address] [place] [phone] Nurse Practitioner Family Medicine 07/15/24 Drop Worker Relationship Specialty Start Date End Date Moustapha De Leon MD [address] [place] [phone] PCP - General Family Medicine 11/08/23 Stephanie Peters, OD [address] [place] [address] Referring Physician Optometry 11/08/23 Delmi Love NP [address] [place] [phone] Nurse Practitioner Family Medicine 07/15/24 Drop Worker Relationship Specialty Start Date End Date Moustapha De Leon MD [address] [place] [phone] PCP - General Family Medicine 11/08/23 Stephanie Peters, OD [address] [facility] [place] [address] Referring Physician Optometry 11/08/23 Delmi Love NP [address] [place] [phone] Nurse Practitioner Family Medicine 07/15/24 Drop Worker Relationship Specialty Start Date End Date Jose David Godwin DO PCP - General Family Medicine 04/01/20 Drop Worker Relationship Specialty Start Date End Date Moustapha De Leon MD [address] [place] [phone] PCP - General Family Medicine 11/08/23 Stephanie Peters OD [address] [facility] [place] [address] Referring Physician Optometry 11/08/23 Delmi Love NP [address] [place] [phone] Nurse Practitioner Family Medicine 07/15/24 Drop Worker Relationship Specialty Start Date End Date Jose David Godwin DO PCP - General Family Medicine 04/01/20 Drop Worker Relationship Specialty Start Date End Date Jose David Godwin DO PCP - General Family Medicine 04/01/20 Drop Worker Relationship Specialty Start Date End Date Moustapha De Leon MD [address] [place] [phone] PCP - General Family Medicine 11/08/23 Stephanie Peters OD [address] [place] [address] Referring Physician Optometry 11/08/23 Delmi Love NP [address] [place] [phone] Nurse Practitioner Family Medicine 07/15/24 Drop Worker Relationship Specialty Start Date End Date Moustapha De Leon MD [address] [place] [phone] PCP - General Family Medicine 11/08/23 Stephanie Peters, OD [address] [place] [address] Referring Physician Optometry 11/08/23 Delmi Love NP [address] [place] [phone] Nurse Practitioner Family Medicine 07/15/24 Drop Worker Relationship Specialty Start Date End Date Moustapha De Leon MD [address] [place] [phone] PCP - General Family Medicine 11/08/23 Stephanie Peters, OD [address] [place] [address] Referring Physician Optometry 11/08/23 Delmi Love NP [address] [place] [phone] Nurse Practitioner Family Medicine 07/15/24 Team Status: Inactive Member Role Status Dates Kunal Ortiz NP-C Primary Care Provider Ac tive Start: September 10, 2024 End: September 10, 2024 Yuliet Perez APRN Attending Provider Active Start: September 10, 2024 End: September 10, 2024 Team Status: Inactive Member Role Status Dates Yuliet Perez APRN Attending Provider Active Start: September 10, 2024 End: September 10, 2024 Drop Worker Relationship Specialty Start Date End Date Moustapha De Leon MD [address] [place] [phone] PCP - General Family Medicine 11/08/23 Stephanie Peters, OD [address] [place] [address] Referring Physician Optometry 11/08/23 Delmi Love NP [address] [place] [phone] Nurse Practitioner Family Medicine 07/15/24 Drop Worker Relationship Specialty Start Date End Date Moustapha De Leon MD [address] [place] [phone] PCP - General Family Medicine 11/08/23 Stephanie Peters, OD [address] [place] [address] Referring Physician Optometry 11/08/23 Delmi Love NP [address] [place] [phone] Nurse Practitioner Family Medicine 07/15/24 Drop Worker Relationship Specialty Start Date End Date Moustapha De Leon MD [address] [place] [phone] PCP - General Family Medicine 11/08/23 Stephanie Peters, OD [address] [place] [address] Referring Physician Optometry 11/08/23 Delmi Love NP [address] [place] [phone] Nurse Practitioner Family Medicine 07/15/24 Drop Worker Relationship Specialty Start Date End Date Moustapha De Leon MD [address] [place] [phone] PCP - General Family Medicine 11/08/23 Stephanie Peters, OD [address] [facility] [place] [address] Referring Physician Optometry 11/08/23 Delmi Love NP [address] [place] [phone] Nurse Practitioner Family Medicine 07/15/24 Drop Worker Relationship Specialty Start Date End Date Moustapha De Leon MD [address] [place] [phone] PCP - General Family Medicine 11/08/23 Stephanie Peters, OD [address] [place] [address] Referring Physician Optometry 11/08/23 Delmi Love NP [address] [place] [phone] Nurse Practitioner Family Medicine 07/15/24 Drop Worker Relationship Specialty Start Date End Date Moustapha De Leon MD [address] [place] [phone] PCP - General Family Medicine 11/08/23 Stephanie Peters, OD [address] [facility] [place] [address] Referring Physician Optometry 11/08/23 Delmi Love NP [address] [place] [phone] Nurse Practitioner Family Medicine 07/15/24 Drop Worker Relationship Specialty Start Date End Date Moustapha De Leon MD [address] [place] [phone] PCP - General Family Medicine 11/08/23 Stephanie Peters, OD [address] [place] [address] Referring Physician Optometry 11/08/23 Delmi Love NP [address] [place] [phone] Nurse Practitioner Family Medicine 07/15/24 Drop Worker Relationship Specialty Start Date End Date Moustapha De Leon MD [address] [place] [phone] PCP - General Family Medicine 11/08/23 Stephanie Peters, OD [address] [place] [address] Referring Physician Optometry 11/08/23 Delmi Love NP [address] [place] [phone] Nurse Practitioner Family Medicine 07/15/24 Goals (unrecognized section and content) Goals may be documented in a n alternate sectionNo InformationGoals may be documented in an alternate sectionNot on filedocumented as of this encounterNot on filedocumented as of this encounterNot on filedocumented as of this encounterGoals may be documented in an alternate sectionGoals may be documented in an alternate section REASON FOR VISIT (unrecogniz ed section and content) Reason Comments Pain Reason Onset Date Comments Med Refill 02/11/2024 Reason Comments Foot Pain B/L foot pain Reason Onset Date Comments Med Refill 02/17/2024 Reason Comments Follow-up Reason Comments Skin Check Reason Comments Fever Reason Comments Foot Pain 74 yo [employer] DES[employer] presents to day with concetrns of BL foot pain. Pt states she has trouble walking. RGT pain, 4th digit left foot corn. Pt also relates callus on lateral dorsal foot. And relates pain, numbness with toes, also relates swelling. No recent xrays. Did purchase insoles from the [employer] but states they hurt her feet. SS: 10 Reason Onset Date Comments Advice Only 07/16/2024 Rx Change Reques t Reason Onset Date Comments Med Refill 07/23/2024 Reason Onset Date Comments Med Refill 08/05/2024 Reason Onset Date Comments Med Refill 08/11/2024 Reason Comments Follow-up Left ear pain Reason Comments New Patient *3:52 pt called, the y were at wrong building on [address], they are making their way to the office now, should be within the 15 minute angela period. Peripheral vascular [id number] (ICD-10-CM) - Smoker Specialty Diagnoses / Procedures Referred By Contac t Referred To Contact Vascular Surgery Diagnoses Peripheral vascular disease Smoker Procedures TX OFFICE OUTPATIENT VISIT 60-74 MINS HIGH MDM [id number] (SNOMED CT) - AMB REFERRAL TO VASCULAR SURGERY Darien Blanca, DPM [address] [place] [address] Phone: tel: fax: Rik Hightower MD [address] [place] [address] Phone: tel:[phone] fax: Referral ID Status Reason Start Date Expiration Date V isits Requested Visits Authorized [id number] Pending Review 07/21/2024 01/17/2025 1 1 Reason Comments Fatigue Reason Comments FUV Metanx Bertha Donita 74yo New Patient presents for 3 month FUV of Metanx therapy. Patient relates she did not start Metanx due to cost. Patient would like a refill for the Alpha Lipoic acid. Patient had an appt. Yesterday with Neurology at [facility] in [place] (dr. Guevara)SS: 10 INFORMATION SOURCE (unrecogn ized section and content) DATE CREATED AUTHOR 07/08/2022 [facility] DATE CREATED AUTHOR AUTHOR'S ORGANIZ ATION 08/21/2024 [facility] DATE CREATED AUTHOR AUTHOR'S ORGANIZ ATION 09/13/2024 [facility] DATE CREATED AUTHOR AUTHOR'S ORGANIZ ATION 10/15/2024 [facility] DATE CREATED AUTHOR AUTHOR'S ORGANIZ ATION 10/23/2024 [facility] FOR RECORDS PERTAINING TO PATIENTS WHO [...] BE BASED ON THE PRIMARY CLINICAL RECORDS. [employer] provides no warranty or guarantee of the accuracy or completeness of information in this document.
[2024-10-30] MEDS: REGADENOSON 0.4 MG/5 ML SYRINGE IV (08:34)
--- NOTE | 2024-10-30 08:40 | PC.NURSE ---
Nursing Note Cardiac Stress Test Reviewed: Medication, allergies and patient history reviewed. Stress Test: [x ] Patient tolerated stress test well. [ ] Patient unable to tolerate walking on treadmill. Switched to Lexiscan stress test. [x ] No chest pain noted per patient [ ] Chest pain that resolved prior to leaving stress lab. [x ] No dyspnea noted. [ ] Dyspnea that resolved prior to leaving stress lab. [x ] Patient left stress lab asymptomatic and hemodynamically stable. [ ] Patient taken to the Emergency Room due to non-resolving symptoms following stress test. [ ] Patient achieved target heart rate. [ ] Patient unable to achieve target heart rate. [ ] Aminophylline administered as reversal agent to Lexiscan (Regadenoson). [ ] Nitro administered. Nursing Comments:Pt had Lexiscan. No symptoms reported. Pt ambulated to cafeteria for breakfast prior to second set of images.
--- NOTE | 2024-11-02 09:05 | P.STRESS_ITS ---
Stress Test Stress Test Requesting physician: Gaurav Warren Procedure: This was a Lexiscan stress test with myocardial perfusion imaging performed at the [facility] on 10/30/2024. Intravenous line was secured. The patient was attached to electrocardiographic monitoring. Baseline vital signs and ECG were obtained. Lexiscan 0.4 mg was administered intravenously followed by administration of Cardiolite. The patient then went on to obtain myocardial perfusion imaging. Resting heart rate was 73 bpm and peak heart rate was 93 bpm. Resting blood pressure was 128/78, peak blood pressure was 136/78. General Information: Reason for Stress Test: Chest pain. Cardiac History and Risk Factors: Hyperlipidemia. Resting 12 - Lead Electrocardiogram: Ectopic atrial rhythm with right bundle branch block. Old inferior and anteroseptal [place]. Stress Test: Protocol: Pharmacologic stress with Lexiscan. Exercise Capacity: Not assessed. Blood Pressure Response: Resting elevated blood pressure. Rhythm: Ectopic atrial rhythm at baseline that switched to sinus rhythm during the rest of the exam. ST - Response: No ischemic ST changes seen. Patient Response: No symptoms. Interpretation: 1. No evidence of ischemic ST changes seen following infusion of Lexiscan. 2. Ectopic atrial rhythm at baseline that switched to sinus rhythm during the rest of the exam. 3. Myocardial perfusion images will be reported separately.
== END 2024-10-30 06:41 | disposition home or self-care (01) ==
LOC: NM 06:40
PROVIDERS: PCP Nurse Practitioner
DX: R07.9 Chest pain, unspecified (principal)
CPT/HCPCS: 78452; 93017; A9500; J2785

== ENCOUNTER 2024-12-17 11:00 | Outpatient (OUT) | payer MEDICARE, SELFPAY ==
--- OUTSIDE RECORDS SUMMARY | 2024-12-17 11:03 | XMS_ITS | Clinical Summary ---
Author Organization [facility] Address [address] [place] [address] Care Team Providers Care Icu Tech Name Role Phone Stephanie Peters OD Unavailable Moustapha De Leon MD Primary Care Provider [phone] Delmi Love PPA TEACHER Unavailable [phone] Allergies Active Allergy Reactions Criticality Noted Date Comments Atorvastatin Other 12/04/2023 myalgias Penicillins Hives,Itching,Rash Low 12/18/2012 Medications rosuvastatin (Crestor) 40 MG tabletIndications:H yperlipidemia, unspecified hyperlipidemia type Take 1 tablet (40 mg) by mouth in the evening 90 tablet 1 5 Active levothyroxine (Synthroid) 75 MCG tabletIndications:H ypothyroidism, unspecified type Take 1 tablet (75 mcg) by mouth in the morning. Take before meals. 90 tablet 1 5 Active nicotine polacrilex (Commit) [address] 2 mg into mouth between cheek and gum every 4 (four) hours if needed 5 Active B Complex-C (b complex-vitamin c) tablet Take 1 tablet by mouth in the morning. Active Alpha Lipoic Acid 200 MG capsuleIndications: Neuropathy, idiopathic,Neuritis Take 200 mg by mouth in the morning and 200 mg before bedtime. 180 capsule 5 01/13/20 25 Active cholecalciferol (Vitamin D-3) 125 MCG (5000 UT) tabletIndications:V itamin D deficiency Take 1 tablet (125 mcg) by mouth Daily 90 tablet 5 02/01/20 25 Active sulfamethoxazole-tr imethoprim (Bactrim DS) 800-160 MG per tabletIndications:R ecurrent UTI (urinary tract infection) Take 1 tablet by mouth every 12 (twelve) hours for 7 days 14 tablet 5 11/18/19 25 Active Problems Problem Noted Date Diagnosed Date Cigarette nicotine dependence without complicati on 11/09/2024 Assessment & Plan (11/09/2024 7:17 AM EDT): The patient has been advised of the risks of continued smoking: stroke, NV, all forms of cancer, lung disease, and . Options for quitting smoking include: cold turkey, hypnosis, acupuncture, nicotine replacement meds (gum, lozenges, and patches), Buproprion, and Varenicline. At this time pt is encouraged to evaluate their goals for wanting to quit smoking, and reach out to provider when ready to start this process Recurrent UTI (urinary tract infection) 11/10/19 25 Assessment & Plan (11/09/2024 6:41 PM EDT): Will obtain copy of last weeks culture May need atb change Also repeat urine in 2 weeks with culture order given Lung cancer screening declined by patient 2024 Assessment & Plan (11/09/2024 6:39 PM EDT): Patient meets requirements for low dose CT scan for lung cancer screening: age 55-80, patient is a current smoker or has quit in the last 15 years. Smoking history is > or equal to 30 pack-year. If needed the patient is able or willing to receive treatment. The patient is not currently exhibiting any s/s of lung cancer. We have discussed the benefits as well as harms of screening, follow up testing if needed, false positive rates. We have also discussed that this type of CT scan has less radiation exposure than a traditional lung CT scan. We have also discussed that it is important to follow with annual screening for this. The patient has also been counseled on the importance of smoking cessation. Smoke: 4gnmP49 years, +family hx of lung cancer Declines wanting this completed Spondylosis of cervical spine 09/29/2024 Assessment & Plan (11/09/2024 7:17 AM EDT): Reviewed radiology report Acquired spondylolisthesis of lumbosacral region 09/29/2024 Lumbar [...] up Other fatigue 08/12/2024 Assessment & Plan (11/09/2024 6:37 PM EDT): Does follow cardiology Assessment & Plan (09/24/2024 7:09 AM EDT): [...] of both feet 08/12/2024 Assessment & Plan (11/09/2024 6:39 PM EDT): EMG: no evidence of radiculopathy noted, +PN Xray spondylithesis, see report MRI was denied Assessment & Plan (09/24/2024 5:25 PM EDT): Check xray lumbar and order EMG's bilat LE Assessment & Plan (08/12/2024 6:26 PM EDT): Check Vit b12 Also is seeing vascular doctor upcoming Age-related osteoporosis wit hocaleb current pathological fracture 06/07/2024 Overview (06/07/2024): DEXA scan 04/03/24: : -2.7 spine, hip -3.1 Vitamin D deficiency 06/07/2024 06/07/2024 Assessment & Plan (08/12/2024 6:27 PM EDT): Vit d supplement Positive colorectal cancer screening using Colog uard [...] of 430. Pt discussed initiating Fenofibrate with Shredder Tender Peat- he recommended and initiated Aspirin 81mg at [...] at 430 Pt discussed initiating Fenofibrate with Shredder Tender Peat- he recommended and initiated Aspirin 81mg at [...] er eyelids of both eyes 05/25/2024 09/24/2024 Tobacco dependence 04/13/2024 5 Assessment & Plan (09/24/2024 7:09 AM EDT): The patient has been advised of the risks of continued smoking: stroke, NV, all forms of cancer, lung disease, and [...] of the risks of continued smoking: stroke, NV, all forms of cancer, lung disease, and [...] of the risks of continued smoking: stroke, NV, all forms of cancer, lung disease, and [...] of the risks of continued smoking: stroke, NV, all forms of cancer, lung disease, and . Options for quitting smoking include: cold turkey, hypnosis, acupuncture, nicotine replacement meds (gum, lozenges, and patches), Buproprion, and Varenicline. At this time pt is encouraged to evaluate their goals for wanting to quit smoking, and reach out to provider when ready to start this process Acute URI 04/13/2024 07/16/2024 Assessment & Plan [...] Encounters Date Type Department Care Team Description 11/10/2024 Refill [facility] [address] [place] [address] Delmi Love NP Recurrent UTI (urinary tract infection) (Primary Dx) 11/09/2024 3:00 PM EDT Office Visit [facility] [address] [place] [address] Delmi Love NP Recurrent UTI (urinary tract infection) (Primary Dx); Numbness and tingling of both feet; Spondylosis of cervical spine; Tobacco dependence; Other fatigue; Cigarette nicotine dependence without complication; Lung cancer screening declined by patient 11/09/2024 Telephone [facility] [address] [place] [address] Delmi Love NP 11/09/2024 Bamboo flowsheet [facility] [address] [place] [address] Delmi Love NP 11/02/2024 [facility]ill [facility] [address] [place] [address] Delmi Love, JADE Vitamin D deficiency 11/02/2024 Abstract [facility] [address] [place] [address] Delmi Love NP 11/01/2024 Clinisync Result Encounter [facility] External Department Unsolicited Provider, Generic External Data 10/21/2024 Orders Only [facility] [address] [place] [address] Lindsey Raymundo MA 10/20/2024 Clinisync Result Encounter [facility] External Department Unsolicited Provider, Generic External Data 10/20/2024 Telephone [facility] [address] [place] [address] Delmi Love, JADE 10/14/2024 10:30 AM EDT Office Visit [facility] [address] [place] [address] Darien Blanca, ASAD Neuropathy, idiopathic (Primary Dx); Peripheral vascular disease; Smoker; Corns and callosities; Left foot pain; Neuritis 10/14/2024 Travel 10/13/2024 12:00 PM EDT Procedure Visit [facility] [address] [place] [address] Tito Guevara MD Numbness (Primary Dx); Paresthesias; Peripheral polyneuropathy 10/13/2024 Travel 10/12/2024 Abstract [facility] [address] [place] [address] Delmi Love, JADE 10/07/2024 Telephone [facility] [address] [place] [address] Delmi Love NP Lab Orders 10/02/2024 Orders Only [facility] [address] [place] [address] Aichholz, Delmi, PPA TEACHER Numbness and tingling of both feet (Primary Dx) 09/29/2024 Orders Only [facility] [address] [facility] [place] [address] Delmi Love, PPA TEACHER Numbness and tingling of both feet (Primary Dx); Spondylosis of cervical spine; Acquired spondylolisthesis of lumbosacral region 09/28/2024 9:30 AM EDT Ancillary Procedure [facility] [address] [facility] [address] [place] [address] Neck pain 09/28/2024 9:00 AM EDT Ancillary Procedure [facility] [address] [facility] [address] [place] [address] Lumbar back pain 09/28/2024 Travel 09/25/2024 Telephone [facility] [address] [facility] [address] [place] [address] Tito Guevara MD 09/24/2024 3:20 PM EDT Office Visit [facility] [address] [facility] [place] [address] Kate Delmi, PPA TEACHER Numbness and tingling of both feet (Primary Dx); Tobacco dependence; Other fatigue; Hypothyroidism, unspecified type ; Lumbar back pain; Neck pain; Other chest pain 09/24/2024 Bamboo flowsheet [facility] [address] [place] [address] Delmi Love PPA TEACHER from Last 3 Months Immunizations Immunization Administration [...] Mother Valerie Stroke Mother Valerie Cancer Other [facility] Cancer Sister 1 Claudia Diabetes Sister 1 Claudia Stroke Sister 2 Shira Melanoma Neg Hx Relation Name Status Comments Father Rufus Mother Valerie Alive Other [facility] Sister 1 Claudia Sister 2 Shira Alive Social History Tobacco Use Types Packs/Day Years Used Date Smoking Tobacco: Every Day Cigarettes 1 51.4 Started: 07/28/1973 Passive Smoke Exposure: Current Smokeless [...] week 11/12/2023 How often do you attend worship or temple serv ices? Patient declined 11/12/2023 Do you belong to any clubs o r organizations such as worship groups, unions, fraternal [...] Questionnaire-2 Score 0 02/27/2024 [facility] - Occupational [...] any time in the past 12 [facility], were you homeless or living in a snf (including now)? No 11/12/2023 Comments No Sex and Gender Information Value Date Recorded Sex Assigned at Not on file Legal Sex Female 7:30 PM EDT Gender Identity Not on file Sexual Orientation Not on file Last Filed Vital Signs Vital Sign Reading Time Taken Comments Blood Pressure 132/76 11/09/2024 3:15 PM EDT Pulse 84 11/09/2024 3:15 PM EDT Temperature 36.9 C (98.5 F) 11/09/2024 3:15 PM EDT Respiratory Rate 18 11/09/2024 3:15 PM EDT Oxygen Saturation 93% 11/09/2024 3:15 PM EDT Inhaled Oxygen Concentration - - Weight 90.9 kg (200 lb 6.4 oz) 11/09/2024 3:15 PM EDT Height 167.6 cm (5' 6 ) 10/14/2024 10:34 AM EDT Body Mass Index 32.35 10/14/2024 10:34 AM EDT Plan of Treatment Upcoming Encounters Date Type Department Care Team (Late st Contact Info) Description 12/25/2024 9:45 AM EDT Office Visit [facility] [address] [place] [address] Cliff Hong PA [address] [place] [address] 01/20/2025 1:30 PM EDT Office Visit [facility] [address] [place] [address] Panda Campos DO [address] [place] [address] 03/23/2025 1:35 PM EST Office Visit [facility] [address] [place] [address] Shira Tan MD [address] [place] [address] 10/20/2025 11:00 AM EDT Office Visit [facility] [address] [place] [address] Cliff Hong PA [address] [place] [address] Health Maintenance Due Date Last Done Comments CT Colonography 1950 FIT 1950 FOBT 1950 Sigmoidoscopy 1950 Influenza Vaccine (#1) 2024 , 02/13/2023, 02/07/2022, Additional history exists Medicare Annual Wellness (AWV) 02/26/2025 02/27/2024 Lung Cancer Screening Shared Decision Making 11/09/2025 Postponed from 1950 (Patient Refused) FIT-DNA 03/18/2027 03/18/2024, 03/25/2019 Colonoscopy 05/04/2034 05/04/2024 Colorectal Cancer Screening 05/04/2034 Pneumococcal Vaccine: 65+ Years Completed 01/21/2019, 03/14/2017 Mammogram Discontinued 04/02/2024, 03/15, 03/22/2023 Procedures Procedure Name Priority Date/Time Associated Diagnosis Comments CULTURE, URINE, ROUTINE Routine 11/10/2024 4:43 PM EDT Recurrent UTI (urinary tract infection) NM ERICK PERF SPECT REST STR 11/01/2024 6:34 PM EDT ALL LIPID PROFILE (FASTING) Routine 10/20/2024 10:32 AM EDT XR CERVICAL SPINE 2-3 VIEWS Routine 09/28/2024 11:05 AM EDT Neck pain XR LUMBAR SPINE 2-3 VIEWS Routine 09/28/2024 11:05 AM EDT Lumbar back pain COLONOSCOPY DIAGNOSTIC Routine 9:48 AM EST MM TOMOSYNTHESIS SCREENING BI 04/02/2024 3:38 PM EST LAB COLOGUARD COLON CANCER SCREEN Routine 03/18/2024 9:50 AM EST Screening for malignant neoplasm of colon from Last 3 Months or Most Recently Relevant to Health Maintenance Results * Urine culture (clean catch) (11/10/2024 4:43 PM EDT) Urine Urine specimen obtained by clean catch procedure / Unknown us Delmi Love NP LAB MICROBIOLOGY - GENERAL ORDE STACY Final Result [facility] * NM ERICK PERF SPECT REST STR (11/01/2024 6:34 PM EDT) Anatomical Region Laterality Modality Other 11/01/2024 6:34 PM EDT Narrative 11/01/2024 6:35 [place] [address] Nuclear Medicine Report Signed Patient: BERTHA GALARZA MR#: [id number] : 1950 Acct:[id number] Age/Sex: 74 / F ADM Date: 10/30/24 Loc: NM Attending Dr: Gaurav Schmitt NP Ordering Physician: Gaurav Schmitt NP Date of Service: 10/30/24 Procedure(s): NM erick perf SPECT rest str Accession Number(s): [id number] cc: Delmi Love PPA TEACHER; Gaurav Schmitt NP Patient Name: BERTHA GALARZA MR#: [id number] : 1950 Exam Date: 10/30/2024 Ordering Doctor: GAURAV SCHMITT RADIOLOGY REPORT PROCEDURE: NM ERICK PERF SPECT REST STR COMPARISON: None. INDICATIONS: CHEST PAIN TECHNIQUE: Exam Description: Stress/Rest one day protocol gated SPECT Rest Imagin.0 mCi Tc-99m Cardiolite IV on 10/30/2024 Stress Imaging 30.7 mCi Tc-99m Cardiolite IV on 10/30/2024 Exercise Protocol: 0.4 mg Lexiscan given IV Heart Rate (bpm): Rest: 73 Max: 93 PMHR: 63 Blood Pressure: Rest: 128/78 Max: 136/78 Symptoms: Rest and peak stress ECG findings were pending and the EKG portion of the study was pending per attending physician [facility] . For more details please see separate cardiac stress test report. FINDINGS: QUALITY OF STUDY: Good PERFUSION DEFECT: LOCATION: Anterior and apical SIZE: Medium SEVERITY: Mild TYPE: Fixed with appropriate thickening and contractility consistent with breast attenuation artifact WALL MOTION: Normal LV SIZE: 69 mL. TID / TCD: 1.0 LVEF: Calculated EF 64%. SUMMARY: Normal myocardial perfusion imaging study CONCLUSION: Normal myocardial perfusion stress study without evidence of ischemia or infarction Normal left ventricular systolic function, ejection fraction 64% No transient ischemic dilatation, TID 1.0 EKG portion of stress test is reported separately Dictated by: Irina Young MD on 11/01/2024 at 18:31 Approved by: Irina Young MD on 11/01/2024 at 18:34 Dictated By: Irina Young M.D. Signed By: 11/01/241834 DD/ 33 TD/TT: Insights Manager: Procedure Note Radiology, Radiologist, MD - 11/01/2024 [place] [address] Nuclear Medicine Report Signed Patient: BERTHA GALARZA AMR#: [id number] : 1950cct:[id number] Age/Sex: 74 / FADM Date: 10/30/24 Loc: NM Attending Dr: Gaurav Schmitt NP Ordering Physician: Gaurav Schmitt NP Date of Service: 10/30/24 Procedure(s): NM erick perf SPECT rest str Accession Number(s): [id number] cc: Delmi Love NP; Gaurav Schmitt NP Patient Name: BERTHA GALARZA MR#: [id number] : 1950 Exam Date: 10/30/2024 Ordering Doctor: GAURAV SCHMITT RADIOLOGY REPORT PROCEDURE: NM ERICK PERF SPECT REST STR COMPARISON: None. INDICATIONS: CHEST PAIN TECHNIQUE: Exam Description: Stress/Rest one day protocol gated SPECT Rest Imagin.0 mCi Tc-99m Cardiolite IV on 10/30/2024 Stress Imaging 30.7 mCi Tc-99m Cardiolite IV on 10/30/2024 Exercise Protocol: 0.4 mg Lexiscan given IV Heart Rate (bpm): Rest: 73 Max: 93 PMHR: 63 Blood Pressure: Rest: 128/78 Max: 136/78 Symptoms: Rest and peak stress ECG findings were pending and the EKG portion of the study was pending per attending physician [facility] . For more details pleasesee separate cardiac stress test report. FINDINGS: QUALITY OF STUDY: Good PERFUSION DEFECT: LOCATION: Anterior and apical SIZE: Medium SEVERITY: Mild TYPE: Fixed with appropriate thickening and contractilityconsistent with breast attenuation artifact WALL MOTION: Normal LV SIZE: 69 mL. TID / TCD: 1.0 LVEF: Calculated EF 64%. SUMMARY: Normal myocardial perfusion imaging study CONCLUSION: Normal myocardial perfusion stress study without evidence of ischemia or infarction Normal left ventricular systolic function, ejection fraction 64% No transient ischemic dilatation, TID 1.0 EKG portion of stress test is reported separately Dictated by: Irina Young MD on 11/01/2024 at 18:31 Approved by: Irina Young MD on 11/01/2024 at 18:34 Dictated By: Irina Young M.D. Signed By:11/01/241834 DD/ 33 TD/TT: Insights Manager: Generic External Data Provider [facility] Final Result * (ABNORMAL) ALL LIPID PROFILE (FASTING) (10/20/2024 10:32 AM EDT) TRIGLYCERIDES 351(H) <=150 mg/dL TBH CHOLESTEROL 152 <=200 mg/dL TB HDL CHOLESTEROL 50 40 - 60 mg/dL TB Comment: > or =60 mg/dl - LOW CARDIOVASCULAR RISK <40 mg/dl - HIGH CARDIOVASCULAR RISK LDL CHOLESTEROL CALCULATED 32.0 mg/dL TB Comment: <100 mg/dl OPTIMAL 100-129 mg/dl NEAR OR ABOVE OPTIMAL 130-159 mg/dl BORDERLINE HIGH 160-189 mg/dl HIGH >190 mg/dl VERY HIGH VLDL CHOLESTEROL 70.2 mg/dL TB CHOL HDL RATIO 3.0 TB Comment: 3.3 - 4.4 LOW RISK 4.4 - 7.1 AVERAGE RISK 7.1 - 11.0 MODERATE RISK >11.0 HIGH RISK 10/20/2024 10:3 2 AM EDT 10/20/2024 10:34 AM EDT Narrative DARREN - 10/20/2024 11:37 AM EDT us Generic External Data Provider DARREN F inal Result DARREN [facility] * XR cervical spine 2 or 3 [...] report is generated using voice recognition reporting ([employer]). On occasion, [employer] erroneously drops words from the report or [...] report is generated using voice recognition reporting ([employer]).On occasion, [employer] erroneously drops words from the report orreplaces [...] report is generated using voice recognition reporting ([employer]). On occasion, [employer] erroneously drops words from the report or [...] report is generated using voice recognition reporting ([employer]).On occasion, [employer] erroneously drops words from the report orreplaces the spoken word with a similar sounding word. Please call withany questions/concerns regarding the report. Dictated on: 09/28/2024 1:06 PM 09/28/2024 9:36 AM This report has been electronically signed and approved by theinterpreting Radiologist. Delmi Love PPA TEACHER IMG XR PROCEDURES Final Result * COLONOSCOPY DIAGNOSTIC (05/04/2024 9:48 AM EST) Anatomical Region Laterality Modality Radiographic Angela ging Lynsey Ortiz NP IMG XR PROCEDURES Final Result * MM TOMOSYNTHESIS SCREENING BI (04/02/2024 3:38 PM EST) Anatomical Region Laterality Modality Other 04/02/2024 3:38 PM EST Narrative 04/02/2024 3:39 PM EST The [address] [address] Mammography Report Signed Patient: BERTHA GALARZA MR#: [id number] : 1950 Acct:[id number] Age/Sex: 73 / F ADM Date: 04/02/24 Loc: MAMMO Attending Dr: LYNSEY ORTIZ Ordering Physician: LYNSEY ORTIZ Results: Date of Service: 04/02/24 Follow Up: Procedure(s): MM tomosynthesis screening BI Accession Number(s): [id number] cc: LYNSEY ORTIZ Patient Name: BERTHA GALARZA MR#: [id number] : 1950 Exam Date: 04/02/2024 Ordering Doctor: [...] colon cancer at age 55. LOCATION: [facility] BREAST COMPOSITION: There are scattered areas of [...] Signed By: 04/02/24 1539 DD/ 1538 TD/TT: Insights Manager: Procedure Note Radiology, Radiologist, MD - 04/02/2024 [place] [address] Mammography Report Signed Patient: BERTHA GALARZA AMR#: [id number] : 1950cct:[id number] Age/Sex: 73 / FADM Date: 04/02/24 Loc: MAMMO Attending Dr: LYNSEY ORTIZ Ordering Physician: Nay ORTIZults: Date of Service: 04/02/24Follow Up: Procedure(s): MM tomosynthesis screening BI Accession Number(s): [id number] cc: LYNSEY ORTIZ Patient Name: BERTHA GALARZA MR#: [id number] : 1950 Exam Date: 04/02/2024 Ordering Doctor: [...] with coloncancer at age 55. LOCATION: [facility] BREAST COMPOSITION: There are scattered areas of [...] M.D. Signed By:04/02/24 1539 DD/ 1538 TD/TT: Insights Manager: Lynsey Ortiz NP [facility] Final Result * (ABNORMAL) Cologuard?? colon cancer screening (03/18/2024 9:50 AM EST) NONINV COLON CA DNA+OCC BLD SCRN STL-IMP Positive( A) Negative 03/25/2024 5:47 PM EST [employer] (CLIA #:[id number]) Comment: POSITIVE TEST RESULT. A positive Cologuard [...] screened with both Cologuard and colonoscopy. (Eduardo Elder. shubham al, N Engl J Med 2014;370(14):1493-1630.) Cologuard may produce a false negative or false positive result (no colorectal cancer or precancerous polyp present at colonoscopy follow up). A negative Cologuard test result does not guarantee the absence of CRC or advanced adenoma (pre-cancer). The current Cologuard screening interval is every 3 years. ([place] [employer] and U.S. Multi-Society Task Force). Cologuard performance data in a 10,000 patient pivotal study using colonoscopy as the reference method can be accessed at the following location: www.CleanMyCRM/results. Additional description of the Cologuard test process, warnings and precautions can be found at www.cologuard.com. Stool specimen (specimen) 03/18/2024 9:50 AM EST 03/20/2024 12:44 PM EST Lynsey Ortiz PPA TEACHER LAB MOLECULAR DIAGNOSTIC S ORDERABLES Final Result .[employer] (CLIA #:[id number]) [address] [place] [address], [place] [phone] [employer] (CLIA #:[id number]) [address] [address] from Last 3 Months or Most Recently Relevant to Health Maintenance Insurance [facility] MEDICARE ADVANTAGE Care Teams Icu Tech Relationship Specialty Start Date End Date Moustapha De Leon MD [address] [place] [address] PCP - General Family Medicine 11/08/23 Stephanie Peters OD [address] [facility] [place] [address] Referring Physician Optometry 11/08/23 Delmi Love NP [address] [place] [address] Nurse Practitioner Family Medicine 07/15/24
--- OUTSIDE RECORDS SUMMARY | 2024-12-17 11:03 | XMS_ITS | Clinical Summary ---
Author Organization [facility] Address [address] [place] [address] Care Team Providers Care Floors Buffer Name Role Phone House Sr., Jose David [...] of 2) 2001 Bone Density Screening 2016 Advance Directive Discussion 04/15/2024 Influenza Vaccine (#1) 2024 RSV Vaccine (1 - 1-dose 75+ series) 2026 Insurance MEDICARE Care Teams Floors Buffer Relationship Specialty Start Date End Date Jose David Morton Sr., DO PCP - General Family Medicine 07/12/11
--- OUTSIDE RECORDS SUMMARY | 2024-12-17 11:03 | XMS_ITS | Encounter Summary ---
Author Organization [facility] Address [address] [place] [address] Care Team Providers Care Meat Molder Name Role Phone Stephanie Peters OD Unavailable Moustapha De Leon MD Primary Care Provider [phone] Lynsey Rinaldi SUPERVISOR HOUSECLEANER Unavailable Delmi Love SUPERVISOR HOUSECLEANER Unavailable [phone] Encounter Details Date Type Department Care [...] week 11/12/2023 How often do you attend religion or episcopal serv ices? Patient declined 11/12/2023 Do you belong to any clubs o r organizations such as religion groups, unions, fraternal or athletic groups, or [...] were you homeless or living in a senior living (including now)? No 11/12/2023 Comments No Sex and Gender Information Value Date Recorded Sex Assigned at Not on file Legal Sex Female 7:30 PM EDT Gender Identity Not on file Sexual Orientation Not on file documented as of this encounter Plan of Treatment Upcoming Encounters Date Type Department Care Team (Late st Contact Info) Description 12/25/2024 9:45 AM EDT Office Visit [facility] [address] [place] [address] Cliff Hong PA [address] [place] [address] 01/20/2025 1:30 PM EDT Office Visit [facility] [address] [place] [address] Panda Campos DO [address] [place] [address] 03/23/2025 1:35 PM EST Office Visit [facility] [address] [place] [address] Shira Tan MD [address] [place] [address] 10/20/2025 11:00 AM EDT Office Visit [facility] [address] [place] [address] Cliff Hong PA [address] [place] [address] [phone] (work) documented as of this encounter Procedures Procedure Name Priority Date/Time Associated Diagnosis Comments MM TOMOSYNTHESIS SCREENING BI 04/02/2024 3:38 PM EST documented in this encounter Results * MM TOMOSYNTHESIS SCREENING BI (04/02/2024 3:38 PM EST) Anatomical Region Laterality Modality Other 04/02/2024 3:38 PM EST Narrative 04/02/2024 3:39 [place] [address] Mammography Report Signed Patient: BERTHA GALARZA MR#: [id number] : 1950 Acct:[id number] Age/Sex: 73 / F ADM Date: 04/02/24 Loc: MAMMO Attending Dr: LYNSEY RINALDI Ordering Physician: LYNSEY RINALDI Results: Date of Service: 04/02/24 Follow Up: Procedure(s): MM tomosynthesis screening BI Accession Number(s): [id number] cc: LYNSEY RINALDI Patient Name: BERTHA GALARZA MR#: [id number] : 1950 Exam Date: 04/02/2024 Ordering Doctor: [...] colon cancer at age 55. LOCATION: The [facility] BREAST COMPOSITION: There are scattered areas [...] Signed By: 04/02/24 1539 DD/ 1538 TD/TT: Clinical Trial Coordinator: Procedure Note Radiology, Radiologist, MD - 04/02/2024 [place] [address] Mammography Report Signed Patient: BERTHA GALARZA AMR#: [id number] : 1950cct:[id number] Age/Sex: 73 / FADM Date: 04/02/24 Loc: MAMMO Attending Dr: LYNSEY RINALDI Ordering Physician: Nay RINALDIults: Date of Service: 04/02/24Follow Up: Procedure(s): MM tomosynthesis screening BI Accession Number(s): [id number] cc: LYNSEY RINALDI Patient Name: BERTHA GALARZA MR#: [id number] : 1950 Exam Date: 04/02/2024 Ordering Doctor: [...] with coloncancer at age 55. LOCATION: The [facility] BREAST COMPOSITION: There are scattered areas [...] M.D. Signed By:04/02/24 1539 DD/ 1538 TD/TT: Clinical Trial Coordinator: Lynsey Rinaldi SUPERVISOR HOUSECLEANER [facility] Final Result documented in this encounter Visit Diagnoses Not on filedocumented in this encounter Additional Health Concerns Assessment Noted Time PHQ-9 Depression Total Score: 0 02/27/20 24 11:00 AM EST documented as of this encounter Care Teams Meat Molder Relationship Specialty Start Date End Date Moustapha De Leon MD [address] [place] [address] PCP - General Family Medicine 11/08/23 Stephanie Peters OD [address] [place] [address] Referring Physician Optometry 11/08/23 Lynsey Rinaldi NP [address] [place] [address] Nurse Practitioner Family Medicine 11/13/23 07/14/24 Delmi Love NP [address] [place] [address] Nurse Practitioner Family Medicine 07/15/24 documented as of this encounter
--- OUTSIDE RECORDS SUMMARY | 2024-12-17 11:03 | XMS_ITS | Encounter Summary ---
Author Organization [facility] Address [address] [place] [address] Care Team Providers Care Biomedical Photographer Name Role Phone Stephanie Peters OD Unavailable Moustapha De Leon MD Primary Care Provider [phone] Delmi oLve NP Unavailable [phone] Encounter Details Date Type Department Care Team (Late st Contact Info) Description 09/01/2024 Results Follow-Up [facility] [address] [place] [address] Mena Galicia MA ECG 12-LEAD Social History Tobacco Use Types Packs/Day Years [...] week 11/12/2023 How often do you attend nondenominational or denominational serv ices? Patient declined 11/12/2023 Do you belong to any clubs o r organizations such as nondenominational groups, unions, fraternal or athletic groups, or [...] Recorded Patient Health Questionnaire-2 Score 0 02/27/2024 [facility]at ional [facility] - Occupational Stress Questionnaire Answer Date [...] any time in the past 12 m [facility], were you homeless or living in a chcf (including now)? No 11/12/2023 Comments No Sex [...] Visit [facility] [address] [place] [address] Cliff Hong PA [address] [place] [address] 01/20/2025 1:30 PM EDT Office Visit [facility] [address] [place] [address] Panda Campos DO [address] [place] [address] 03/23/2025 1:35 PM EST Office Visit [facility] [address] [place] [address] Shira Tan MD [address] [place] [address] 10/20/2025 11:00 AM EDT Office Visit [facility] [address] [place] [address] Cliff Hong PA [address] [place] [address] documented as of this encounter Visit Diagnoses Not on filedocumented in this encounter Additional Health Concerns Assessment Noted Time PHQ-9 Depression Total Score: 0 02/27/20 24 11:00 AM EST documented as of this encounter Care Teams Biomedical Photographer Relationship Specialty Start Date End Date Moustapha De Leon MD [address] [place] [address] PCP - General Family Medicine 11/08/23 Stephanie Peters OD [address] [place] [address] Referring Physician Optometry 11/08/23 Delmi Love NP [address] [place] [address] Nurse Practitioner Family Medicine 07/15/24 documented as of this encounter
--- OUTSIDE RECORDS SUMMARY | 2024-12-17 11:03 | XMS_ITS | Encounter Summary ---
Author Organization [employer] Address [id number] [address] [place] [address] Care Team Providers Care Hand Coremaker Name Role Phone Jose David Morton DO Primary Care Provider Encounter Details Date Type Department Care Team (Late Contact Info) Description 08/20/2024 Orders Only [facility] [address] [place] [address] External, Scanning Provider Social History [...] [facility] [address] [place] [address] Mike Jules MD [address] [place], [place] [phone] documented as of this encounter Procedures Procedure Name Priority Date/Time Associated Diagnosis Comments ECG 12-LEAD Routine 11/19/2023 10:12 AM EDT documented in this encounter Results * ECG 12 lead (11/19/2023 10:12 AM EDT) us Scanning Provider External ECG ORDERABLES Final Result Performing Organization Address City/State/[facility] Co de Phone Number MANUALLY TRANSCRIBED RESULTS documented in this encounter Visit Diagnoses Not on filedocumented in this encounter Additional Health Concerns Assessment Noted Time PHQ-9 Depression Total Score: 0 05/23/19 22 10:51 AM EST documented as of this encounter Care Teams Hand Coremaker Relationship Specialty Start Date End Date Jose David Morton DO PCP - General Family Medicine 04/01/20 documented as of this encounter
--- OUTSIDE RECORDS SUMMARY | 2024-12-17 11:03 | XMS_ITS | Encounter Summary ---
Author Organization [facility] Address [address] [place] [address] Care Team Providers Care Skoog Operator Name Role Phone Stephanie Peters OD Unavailable Moustapha De Leon MD Primary Care Provider [phone] Lynsey Ortiz BLOW MOLDER Unavailable [phone] Delmi Love BLOW MOLDER Unavailable [phone] Encounter Details Date Type Department Care Team (Late st Contact Info) Description 11/19/2023 Clinisync Result Encounter [facility] External Department Unsolicited Lynsey Ortiz NP Social History Tobacco Use [...] week 11/12/2023 How often do you attend sabianism or holiness serv ices? Patient declined 11/12/2023 Do you belong to any clubs o r organizations such as sabianism groups, unions, fraternal or athletic groups, or [...] Recorded Patient Health Questionnaire-2 Score 0 11/18/2023 [facility] of Occupat ional Health - Occupational Stress [...] a jail (including now)? No 11/12/2023 Comments Unknown Sex [...] Office Visit [facility] [address] [place] [address] Cliff Hong PA [address] [place] [address] 01/20/2025 1:30 PM EDT Office Visit [facility] [address] [place] [address] Panda Campos DO [address] [place] [address] 03/23/2025 1:35 PM EST Office Visit [facility] [address] [place] [address] Shira Tan MD [address] [place] [address] 10/20/2025 11:00 AM EDT Office Visit [facility] [address] [place] [address] Cliff Hong PA [address] [place] [address] [phone] (work) documented as of this encounter Procedures Procedure Name Priority Date/Time Associated Diagnosis Comments ECG 12-LEAD 11/19/2023 10:39 AM EDT documented in this encounter Results * ECG 12-LEAD (11/19/2023 10:39 AM EDT) Anatomical Region Laterality Modality Other 11/19/2023 10:3 9 AM EDT Narrative 11/19/2023 10:27 [place] [address] Electrocardiograph Report Signed Patient: BERTHA GALARZA MR#: [id number] : 1950 Acct:[id number] Age/Sex: 73 / F ADM Date: 11/19/23 Loc: CARD Attending Dr: LYNSEY ORTIZ Ordering Physician: LYNSEY ORTIZ Date of Service: 11/19/23 Procedure(s): ECG 12 lead Accession Number(s): [id number] cc: [facility] Test Date: 2023-11-19 Pat Name: BERTHA GALARZA Department: Room: - Gender: Female Pellet Press Operator: : 1950 Requested By: 7 Order Number: [id number] Reading MD: STAR GIPSON Measurements Intervals Pearce Rate: 75 P: 73 DE: 146 QRS: -80 QRSD: 131 T: 46 [...] Signed On 11-19-2023 22:27:07 EDT by STAR GIPSON Dictated By: Star Gipson D.O. Signed By: 11/19/23222611/19/232226 DD/ 103 TD/TT: Supervisor Force Adjustment: Procedure Note Radiology, Radiologist, - 11/19/[address] [address] Electrocardiograph Report Signed Patient: BERTHA GALARZA AMR#: [id number] : 1950cct:[id number] Age/Sex: 73 / FADM Date: 11/19/23 Loc: CARD Attending Dr: LYNSEY ORTIZ Ordering Physician: LYNSEY ORTIZ Date of Service: 11/19/23 Procedure(s): ECG 12 lead Accession Number(s): [id number] cc: The [facility] Test Date: 2023-11-19 Pat Name: BERTHA GALARZA Department: Room: - Gender: Female Pellet Press Operator: : 1950 Requested By: [id number] Order Number: [id number] Reading MD: STAR GIPSON Measurements Intervals Pearce Rate: 75 P: 73 DE: 146 QRS: -80 QRSD: 131 T: 46 [...] Signed On 11-19-2023 22:27:07 EDT by STAR GIPSON Dictated By: Star Gipson D.O. Signed By:11/19/23222611/19/232226 DD/ 1039 TD/TT: Supervisor Force Adjustment: Lynsey Ortiz BLOW MOLDER [facility] Final Result documented in this encounter Visit Diagnoses Not on filedocumented in this encounter Care Teams Skoog Operator Relationship Specialty Start Date End Date Moustapha De Loen MD [address] [place] [address] PCP - General Family Medicine 11/08/23 Stephanie Peters OD [address] [facility] [place] [address] Referring Physician Optometry 11/08/23 Lynsey Ortiz NP [address] [place] [address] Nurse Practitioner Family Medicine 11/13/23 07/14/24 Delmi Love NP [address] [place] [address] Nurse Practitioner Family Medicine 07/15/24 documented as of this encounter
--- OUTSIDE RECORDS SUMMARY | 2024-12-17 11:03 | XMS_ITS | Encounter Summary ---
Author Organization [facility] Address [address] [place] [address] Care Team Providers Care Envelope Stamping Machine Operator Name Role Phone Stephanie Peters OD Unavailable Moustapha De Leon MD Primary Care Provider [phone] Delmi Love NP Unavailable [phone] Encounter Details Date Type Department Care Team (Late st Contact Info) Description 09/01/2024 Results Follow-Up [facility] [address] [place] [address] Mena Galicia MA ALL CBC WITH AUTO DIFF, HMHP IRON, ALL THYROXINE (T4) FREE, Additional followed-up results: 3 Social History Tobacco Use Types Packs/Day Years [...] week 11/12/2023 How often do you attend lutheran or mandaeism serv ices? Patient declined 11/12/2023 Do you belong to any clubs o r organizations such as lutheran groups, unions, fraternal or athletic groups, or [...] Recorded Patient Health Questionnaire-2 Score 0 02/27/2024 [facility] - Occupational [...] time in the past 12 m [facility], were you homeless or living in [...] 12/25/2024 9:45 AM EDT Office Visit [facility] [place] [address] Cliff Hong PA [address] [place] [address] 01/20/2025 1:30 PM EDT Office Visit [facility] [address] [place] [address] Panda Campos DO [address] [place] [address] 03/23/2025 1:35 PM EST Office Visit [facility] [address] [place] [address] Shira Tan MD [address] [place] [address] 10/20/2025 11:00 AM EDT Office Visit [facility] [address] [place] [address] Cliff Hong PA [address] [place] [address] documented as of this encounter Visit Diagnoses Not on filedocumented in this encounter Additional Health Concerns Assessment Noted Time PHQ-9 Depression Total Score: 0 02/27/20 24 11:00 AM EST documented as of this encounter Care Teams Envelope Stamping Machine Operator Relationship Specialty Start Date End Date Moustapha De Leon MD [address] [place] [address] PCP - General Family Medicine 11/08/23 Stephanie Peters OD [address] [place] [address] Referring Physician Optometry 11/08/23 Delmi Love NP [address] [place] [address] Nurse Practitioner Family Medicine 07/15/24 documented as of this encounter
--- OUTSIDE RECORDS SUMMARY | 2024-12-17 11:03 | XMS_ITS | Encounter Summary ---
Author Organization [facility] Address [address] [place] [address] Care Team Providers Care Director Of Retail Merchandising Name Role Phone Stephanie Peters OD Unavailable Moustapha De Leon MD Primary Care Provider [phone] Delmi Love PHLEBOTOMIST Unavailable [phone] Encounter Details Date Type Department Care Team (Late st Contact Info) Description 09/04/2024 Orders Only [facility] [address] [place] [address] Delmi Love NP [address] [place] [address] Social History Tobacco Use Types Packs/Day Years [...] week 11/12/2023 How often do you attend temple or anabaptism serv ices? Patient declined 11/12/2023 Do you belong to any clubs o r organizations such as temple groups, unions, fraternal or athletic groups, or [...] [facility] of Occupat ional [facility] - Occupational Stress Questionnaire Answer [...] time in the past 12 m [facility], were you homeless or living in a [...] Visit [facility] [address] [place] [address] Cliff Hong PA [address] [place] [address] 01/20/2025 1:30 PM EDT Office Visit [facility] [address] [place] [address] Panda Campos DO [address] [place] [address] 03/23/2025 1:35 PM EST Office Visit [facility] [address] [place] [address] Shira Tan MD [address] [place] [address] 10/20/2025 11:00 AM EDT Office Visit [facility] [address] [place] [address] Cliff Hong PA [address] [facility] [place] [address] documented as of this encounter Visit Diagnoses Not on filedocumented in this encounter Additional Health Concerns Assessment Noted Time PHQ-9 Depression Total Score: 0 02/27/20 24 11:00 AM EST documented as of this encounter Care Teams Director Of Retail Merchandising Relationship Specialty Start Date End Date Moustapha De Leon MD [address] [place] [address] PCP - General Family Medicine 11/08/23 Stephanie Peters OD [address] [place] [address] Referring Physician Optometry 11/08/23 Delmi Love NP [address] [place] [address] Nurse Practitioner Family Medicine 07/15/24 documented as of this encounter
--- OUTSIDE RECORDS SUMMARY | 2024-12-17 11:03 | XMS_ITS | Encounter Summary ---
Author Organization [facility] Address [address] [place] [address] Care Team Providers Care Polymerization Supervisor Name Role Phone Praveen Jose David Mclean MD Primary Care Provider Shaikh TIFFANIE Portillo Primary Care Provider [phone] Stephanie Peters OD Unavailable Moustapha De Leon MD Primary Care Provider [phone] Lynsey Ortiz CLOTH CARRIER Unavailable Delmi Love CLOTH CARRIER Unavailable [phone] Encounter Details Date Type Department Care Team (Late st Contact Info) Description 04/01/2023 Clinisync Result Encounter [facility] External Department Unsolicited Shaikh Portillo MD [address] [place] [address] Social History Tobacco Use Types Packs/Day Years [...] Description 12/25/2024 9:45 AM EDT Office Visit [facility] [address] [place] [address] Cliff Hong PA [address] [place] [address] 01/20/2025 1:30 PM EDT Office Visit [facility] [address] [place] [address] Panda Campos DO [address] [place] [address] 03/23/2025 1:35 PM EST Office Visit [facility] [address] [place] [address] Shira Tan MD [address] [place] [address] 10/20/2025 11:00 AM EDT Office Visit [facility] [address] [place] [address] Cliff Hong, JANINA [address] [place] [address] documented as of this encounter Procedures Procedure Name Priority Date/Time Associated Diagnosis Comments MM TOMOSYNTHESIS SCREENING BI 04/01/2023 2:27 PM EST documented in this encounter Results * MM TOMOSYNTHESIS SCREENING BI (04/01/2023 2:27 PM EST) Anatomical Region Laterality Modality Other 04/01/2023 2:27 PM EST Narrative 04/01/2023 2:28 PM EST The [address] [address] Mammography Report Signed Patient: Bertha Galarza MR#: [id number] : 1950 Acct:[id number] Age/Sex: 72 / F ADM Date: 04/01/23 Loc: MAMMO Attending Dr: Shaikh Bandar Killian Ordering Physician: Shaikh Maria D Portillo Results: Date of Service: 04/01/23 Follow Up: Procedure(s): MM tomosynthesis screening BI Accession Number(s): [id number] cc: Shaikh Maria D Portillo Patient Name: BERTHA GALARZA MR#: [id number] : 1950 Exam Date: 04/01/2023 Ordering Doctor: [...] colon cancer at age 55. LOCATION: The [facility] BREAST COMPOSITION: Scattered areas fibroglandular density. [...] Signed By: 04/01/23 1428 DD/ 1427 TD/TT: Chief Controller Center: Procedure Note Radiology, Radiologist, - 04/01/2023 [place] [address] Mammography Report Signed Patient: Bertha Galarza AMR#: [id number] : 1950cct:[id number] Age/Sex: 72 / FADM Date: 04/01/23 Loc: MAMMO Attending Dr: Shaikh Bandar Killian Ordering Physician: Shaikh Maria D PortilloResults: Date of Service: 04/01/23Follow Up: Procedure(s): MM tomosynthesis screening BI Accession Number(s): [id number] cc: Shaikh Maria D Portillo Patient Name: BERTHA GALARZA MR#: [id number] : 1950 Exam Date: 04/01/2023 Ordering Doctor: [...] with coloncancer at age 55. LOCATION: The [facility] BREAST COMPOSITION: Scattered areas fibroglandular density. [...] M.D. Signed By:04/01/23 1428 DD/ 1427 TD/TT: Chief Controller Center: us Shaikh Bandar [facility] Final Result documented in this encounter Visit Diagnoses Not on filedocumented in this encounter Care Teams Polymerization Supervisor Relationship Specialty Start Date End Date Jose David Morton MD PCP - General Family Medicine 10/11/22 09/02/23 Shaikh Portillo MD [address] [place] [address] PCP - General Internal Medicine 09/03/23 11/07/23 Moustapha De Leon MD [address] [place] [address] PCP - General Family Medicine 11/08/23 Stephanie Peters OD [address] [place] [address] Referring Physician Optometry 11/08/23 Lynsey Ortiz NP [address] [place] [address] Nurse Practitioner Family Medicine 11/13/23 07/14/24 Delmi Love NP [address] [place] [address] Nurse Practitioner Family Medicine 07/15/24 documented as of this encounter
--- OUTSIDE RECORDS SUMMARY | 2024-12-17 11:03 | XMS_ITS | Encounter Summary ---
Author Organization [facility] Address [address] [place] [address] Care Team Providers Care Neck Band Operator Name Role Phone Stephanie Peters OD Unavailable Moustapha De Leon MD Primary Care Provider [phone] Delmi Love NP Unavailable [phone] Encounter Details Date Type Department Care Team (Late st Contact Info) Description 10/21/2024 Orders Only [facility] [address] [place] [address] Lindsey Raymundo MA Social History Tobacco Use Types Packs/Day Years [...] week 11/12/2023 How often do you attend religious or yazidism serv ices? Patient declined 11/12/2023 Do you belong to any clubs o r organizations such as religious groups, unions, fraternal or athletic groups, or [...] Recorded Patient Health Questionnaire-2 Score 0 02/27/2024 [facility] - Occupational Stress Questionnaire Answer [...] time in the past 12 m [facility], were you homeless or living [...] Office Visit [facility] [address] [place] [address] Cliff Hong PA [address] [facility] [place] [address] 01/20/2025 1:30 PM EDT Office Visit [facility] [address] [place] [address] Panda Campos DO [address] [place] [address] 03/23/2025 1:35 PM EST [facility] [address] [place] [address] Shira Tan MD [address] [place] [address] 10/20/2025 11:00 AM EDT Office Visit [facility] [address] [place] [address] Cliff Hong PA [address] [place] [address] documented as of this encounter Visit Diagnoses Not on filedocumented in this encounter Additional Health Concerns Assessment Noted Time PHQ-9 Depression Total Score: 0 02/27/20 24 11:00 AM EST documented as of this encounter Care Teams Neck Band Operator Relationship Specialty Start Date End Date Moustapha De Leon MD [address] [place] [address] PCP - General Family Medicine 11/08/23 Stephanie Peters OD [address] [facility] [place] [address] Referring Physician Optometry 11/08/23 Delmi Love NP [address] [place] [address] Nurse Practitioner Family Medicine 07/15/24 documented as of this encounter
--- OUTSIDE RECORDS SUMMARY | 2024-12-17 11:03 | XMS_ITS | Encounter Summary ---
Author Organization [facility] Address [address] [place] [address] Care Team Providers Care Cdl Program Coordinator Name Role Phone Stephanie Peters OD Unavailable Moustapha De Leon MD Primary Care Provider [phone] Lynsey Rinaldi SUEDE CLEANER Unavailable Delmi Love SUEDE CLEANER Unavailable [phone] Encounter Details Date Type Department Care [...] week 11/12/2023 How often do you attend pentecostalism or rastafarian serv ices? Patient declined 11/12/2023 Do you belong to any clubs o r organizations such as pentecostalism groups, unions, fraternal or athletic groups, or [...] Recorded Patient Health Questionnaire-2 Score 0 02/27/2024 [facility] [...] any time in the past 12 m [facility], were you homeless or living in [...] Visit [facility] [address] [place] [address] Cliff Hong PA [address] [place] [address] 01/20/2025 1:30 PM EDT Office Visit [facility] [address] [place] [address] Panda Campos DO [address] [place] [address] 03/23/2025 1:35 PM EST Office Visit [facility] [address] [place] [address] Shira Tan MD [address] [place] [address] 10/20/2025 11:00 AM EDT Office [facility] [address] [place] [address] Cliff Hong PA [address] [place] [address] [phone] (work) documented as of this encounter Procedures Procedure Name Priority Date/Time Associated Diagnosis Comments XR DEXA AXIAL SKELETON 04/03/2024 11:54 AM EST documented in this encounter Results * XR DEXA AXIAL SKELETON (04/03/2024 11:54 AM EST) Anatomical Region Laterality Modality Other 04/03/2024 11:5 4 AM EST Narrative 04/03/2024 2:46 [place] [address] XRay Report Signed Patient: BERTHA GALARZA MR#: [id number] : 1950 Acct:[id number] Age/Sex: 73 / F ADM Date: 04/02/24 Loc: MAMMO Attending Dr: LYNSEY RINALDI Ordering Physician: LYNSEY RINALDI Date of Service: 04/02/24 Procedure(s): XR DEXA axial skeleton Accession Number(s): [id number] cc: LYNSEY RINALDI [place] [address] Patient Name: BERTHA GALARZA MRN: [id number] date: 1950 Sex: F Assigned Patient Location: MAMMO Current Patient Location: Accession/Order Number: [id number] Exam Date: 04/02/2024 15:05 Report Date: 04/03/2024 [...] prevention and treatment of osteoporosis. Osteoporos Int. 2021;33(10):7506-1122. doi: 10.1007/r17287-461-58679-p. Epub 2021Aug 10. Erratum in: Osteoporos Int. 2021Nov 09;: PMID: 53656151; PMCID: [id number]. Electronically authenticated by: KARI DIOP Date: 04/03/2024 11:54 Dictated By: Kari Diop M.D. Signed By: 04/03/24 1446 DD/ 1154 TD/TT: Stoper: Procedure Note Radiology, Radiologist, MD - 04/03/2024 [place] [address] XRay Report Signed Patient: BERTHA GALARZA AMR#: [id number] : 1950cct:[id number] Age/Sex: 73 / FADM Date: 04/02/24 Loc: MAMMO Attending Dr: LYNSEY RINALDI Ordering Physician: LYNSEY RINALDI Date of Service: 04/02/24 Procedure(s): XR DEXA axial skeleton Accession Number(s): [id number] cc: LYNSEY RINALDI [place] [address] Patient Name: BERTHA GALARZA MRN: [id number] date: 1950 Sex: F Assigned Patient [facility]: [facility] Current Patient Location: Accession/Order Number: [id number] Exam Date: 04/02/2024 15:05 Report Date: 04/03/2024 [...] 10-year hip fracture risk >= 3% or [id number] major osteoporosis-related fracture risk >= 20% (i.e., [...] to prevention and treatment of osteoporosis.Osteoporos Int. 2021;33(10):6273-2753. doi: 10.1007/u41307-556-72408-c. Ep. Erratum in: Osteoporos Int. 2021Nov 09;: PMID: 63890962; PMCID: [id number]. Electronically authenticated by: KARI DIOP Date: 04/03/2024 11:54 Dictated By: Kari Diop M.D. Signed By:04/03/24 1446 DD/ 1154 TD/TT: Stoper: Lynsey Rinaldi SUEDE CLEANER [facility] Final Result documented in this encounter Visit Diagnoses Not on filedocumented in this encounter Additional Health Concerns Assessment Noted Time PHQ-9 Depression Total Score: 0 02/27/20 24 11:00 AM EST documented as of this encounter Care Teams Cdl Program Coordinator Relationship Specialty Start Date End Date Moustapha De Leon MD [address] [place] [address] PCP - General Family Medicine 11/08/23 Stephanie Peters OD [address] [place] [address] Referring Physician Optometry 11/08/23 Lynsey Rinaldi NP [address] [place] [address] Nurse Practitioner Family Medicine 11/13/23 07/14/24 Delmi Love NP [address] [place] [address] Nurse Practitioner Family Medicine 07/15/24 documented as of this encounter
--- OUTSIDE RECORDS SUMMARY | 2024-12-17 11:03 | XMS_ITS | Encounter Summary ---
Author Organization [facility] Address [address] [place] [address] Care Team Providers Care Concrete Tester Name Role Phone Stephanie Peters OD Unavailable Moustapha De Leon MD Primary Care Provider [phone] Delmi Love ACCOUNT MANAGER SALES REPRESENTATIVE Unavailable [phone] Encounter Details Date Type Department Care Team (Late st Contact Info) Description 11/02/2024 Abstract [facility] [address] [place] [address] Delmi Love NP [address] [place] [address] Social History Tobacco Use Types Packs/Day Years [...] week 11/12/2023 How often do you attend sikh or mandaen serv ices? Patient declined 11/12/2023 Do you belong to any clubs o r organizations such as sikh groups, unions, fraternal or athletic groups, or [...] Recorded Patient Health Questionnaire-2 Score 0 02/27/2024 [facility] - Occupational Stress Questionnaire Answer Date [...] any time in the past 12 m [facility], were you homeless or living in a [...] 12/25/2024 9:45 AM EDT Office Visit [facility] [address] [place] [address] Cliff Hong PA [address] [place] [address] 01/20/2025 1:30 PM EDT Office Visit [facility] [address] [place] [address] Panda Campos DO [address] [place] [address] 03/23/2025 1:35 PM EST Office Visit [facility] [address] [place] [address] Shira Tan MD [address] [place] [address] 10/20/2025 11:00 AM EDT Office Visit [facility] [address] [place] [address] Cliff Hong PA [address] [facility] [place] [address] documented as of this encounter Visit Diagnoses Not on filedocumented in this encounter Additional Health Concerns Assessment Noted Time PHQ-9 Depression Total Score: 0 02/27/20 24 11:00 AM EST documented as of this encounter Care Teams Concrete Tester Relationship Specialty Start Date End Date Moustapha De Leon MD [address] [place] [address] PCP - General Family Medicine 11/08/23 Stephanie Peters OD [address] [place] [address] Referring Physician Optometry 11/08/23 Delmi Love NP [address] [place] [address] Nurse Practitioner Family Medicine 07/15/24 documented as of this encounter
--- OUTSIDE RECORDS SUMMARY | 2024-12-17 11:03 | XMS_ITS | Encounter Summary ---
Author Organization [facility] Address [address] [place] [address] Care Team Providers Care Glass Enamel Mixer Name Role Phone Stephanie Peters OD Unavailable Moustapha De Leon MD Primary Care Provider [phone] Lynsey Ortiz ENVIRONMENTAL ADVISOR Unavailable [phone] Delmi Love NP Unavailable [phone] Encounter Details Date Type Department Care Team (Late st Contact Info) Description 11/19/2023 Abstract [facility] [address] [facility] [place] [address] Lynsey Ortiz NP Social History Tobacco Use [...] week 11/12/2023 How often do you attend moravian or druze serv ices? Patient declined 11/12/2023 Do you belong to any clubs o r organizations such as moravian groups, unions, fraternal or athletic groups, or [...] Recorded Patient Health Questionnaire-2 Score 0 11/18/2023 [facility] - Occupational Stress Questionnaire Answer Date Recorded [...] any time in the past 12 m [facility], were you homeless or living in a long term (including now)? No 11/12/2023 Comments Unknown Sex [...] AM EDT Office Visit [facility] [address] [place] [address] Cliff Hong, PA [address] [place] [address] 01/20/2025 1:30 PM EDT Office Visit [facility] [address] [place] [address] Panda Campos DO [address] [place] [address] 03/23/2025 1:35 PM EST [facility] [address] [place] [address] Shira Tan MD [address] [place] [address] 10/20/2025 11:00 AM EDT Office Visit [facility] [address] [place] [address] Cliff Hong PA [address] [place] [address] documented as of this encounter Visit Diagnoses Not on filedocumented in this encounter Care Teams Glass Enamel Mixer Relationship Specialty Start Date End Date Moustapha De Leon MD [address] [place] [address] PCP - General Family Medicine 11/08/23 Stephanie Peters OD [address] [place] [address] Referring Physician Optometry 11/08/23 Lynsey Ortiz NP [address] [place] [address] Nurse Practitioner Family Medicine 11/13/23 07/14/24 Delmi Love NP [address] [place] [address] Nurse Practitioner Family Medicine 07/15/24 documented as of this encounter
--- OUTSIDE RECORDS SUMMARY | 2024-12-17 11:03 | XMS_ITS | Encounter Summary ---
Author Organization [facility] Address [address] [place] [address] Care Team Providers Care Snack Steward Name Role Phone Stephanie Peters OD Unavailable Moustapha De Leon MD Primary Care Provider [phone] Delmi Love OUTSIDE SALES Unavailable [phone] Encounter Details Date Type Department Care Team (Late st Contact Info) Description 10/12/2024 Abstract [facility] [address] [place] [address] Delmi Love NP [address] [place] [place] [address] Social History Tobacco Use Types Packs/Day Years [...] How often do you attend lutheran or church serv ices? Patient declined 11/12/2023 Do you [...] Recorded Patient Health Questionnaire-2 Score 0 02/27/2024 [facility] Occupat ional [facility] - Occupational Stress Questionnaire Answer [...] were you homeless or living in a fdc (including now)? No 11/12/2023 Comments No Sex and Gender Information Value Date Recorded Sex Assigned at Not on file Legal Sex Female 7:30 PM EDT Gender Identity Not on file Sexual Orientation Not on file documented as of this encounter Plan of Treatment Upcoming Encounters Date Type Department Care Team (Late st Contact Info) Description 12/25/2024 9:45 AM EDT Office Visit [facility] [address] [place] [address] Cliff Hong PA [address] [place] [address] 01/20/2025 1:30 PM EDT Office Visit [facility] [address] [place] [address] Panda Campos DO [address] [place] [address] 03/23/2025 1:35 PM EST Office Visit [facility] [address] [place] [address] Shira Tan MD [address] [place] [address] 10/20/2025 11:00 AM EDT Office Visit [facility] [address] [place] [address] Cliff Hong PA 6[address] [facility] [place] [address] documented as of this encounter Visit Diagnoses Not on filedocumented in this encounter Additional Health Concerns Assessment Noted Time PHQ-9 Depression Total Score: 0 02/27/20 24 11:00 AM EST documented as of this encounter Care Teams Snack Steward Relationship Specialty Start Date End Date Moustapha De Leon MD [address] [place] [address] PCP - General Family Medicine 11/08/23 Stephanie Peters OD [address] [place] [address] Referring Physician Optometry 11/08/23 Delmi Love NP [address] [place] [address] Nurse Practitioner Family Medicine 07/15/24 documented as of this encounter
--- OUTSIDE RECORDS SUMMARY | 2024-12-17 11:03 | XMS_ITS | Encounter Summary ---
Author Organization [employer] tem Address [id number] [place] [address] Care Team Providers Care Esl Teacher Name Role Phone Jose David Morton DO Primary Care Provider [phone] Encounter Details Date Type Department Care Team (Late Contact Info) Description 08/27/2024 Orders Only [facility] [address] [place] [address] Mike Jules MD [address] [place] [address] Lower extremity edema Social History Tobacco Use [...] [facility] [address] [place] [address] Mike Jules MD [address] [place] [address] documented as of this encounter Procedures Procedure [...] documented as of this encounter Care Teams Esl Teacher Relationship Specialty Start Date End Date Jose David Morton DO PCP - General Family Medicine 04/01/20 documented as of this encounter
--- OUTSIDE RECORDS SUMMARY | 2024-12-17 11:03 | XMS_ITS | Clinical Summary ---
Author Organization [facility] Address [address] [place] [address] Care Team Providers Care De Alcoholizer Name Role Phone Moustapha De Leon MD Primary Care Provider [phone] Allergies Active Allergy Reactions Criticality Noted Date [...] by mouth in the morning. 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 Cystitis 09/03/2023 Nasal congestion 05/23/2021 Smoking 06/13/2020 Hoarseness 03/24/2020 Lesion of vocal cord 03/24/2020 Personal history of malignant neoplasm of breast 12/18/2013 Breast cancer 12/05/2012 Encounters Date Type Department Care Team Description 11/13/2024 11:20 AM EDT Office Visit [facility] [address] [place] [address] Gaurav Warren, BUTCH Other chest pain (Primary Dx); AKHTAR (dyspnea on exertion); Pure hypercholesterolemia; RBBB; Family history of ischemic heart disease; Tobacco dependence 11/02/2024 Orders Only [facility] [address] [place] [address] Provider, Historical, MD 10/19/2024 11:20 AM EDT Office Visit [facility] [address] [place] [address] Gaurav Warren CNP Other chest pain (Primary Dx); AKHTAR (dyspnea on exertion); RBBB; Abnormal EKG; Mixed hyperlipidemia; Tobacco dependence 10/19/2024 Orders Only [facility] [address] [place] [address] Jes Cisneros MA Chest pain, [...] Value Date Recorded Sex Assigned at Female 11/11/2024 3:40 PM EDT Legal Sex Female 1:39 PM EDT Gender Identity Female 11/11/2024 3:40 PM EDT Sexual Orientation Heterosexual or Straight 10/15 3:40 PM EDT Last Filed Vital Signs Vital Sign Reading Time Taken Comments Blood Pressure 110/68 11/13/2024 11:13 AM EDT Pulse 81 11/13/2024 11:13 AM EDT Temperature - - Respiratory Rate - - Oxygen Saturation 92% 11/13/2024 11:13 AM EDT Inhaled Oxygen Concentration - - Weight 90.7 kg (200 lb) 10/19/2024 11:32 AM EDT Height 167.6 cm (5' 6 ) 11/13/2024 11:13 AM EDT Body Mass Index 32.28 10/19/2024 11:32 AM EDT Plan of Treatment Upcoming Encounters Date Type Department Care Team (Late st Contact Info) Description 12/29/2024 8:00 AM EDT [facility] [address] [place] [address] 02/08/2025 11:00 AM EDT Office Visit [facility] [address] [place] [address] Gaurav Warren, POLISHER BRASS [address] [place] [address] Health Maintenance Due Date Last Done Comments CT Colonography 1950 Colonoscopy 1950 Diabetes: Hemoglobin A1C 1950 FOBT 1950 Medicare Annual Wellness (AWV) 1950 Sigmoidoscopy 1950 Depression Screening 1963 Adult Tetanus 1973 Zoster Vaccines (1 of 2) 2001 Fall Risk Screening 2016 COVID-19 Vaccine ( season) 2024 03/23/2021, 07/05/2020, 06/14/2020 Influenza Vaccine (#1) 2024 , 02/27/2024, 02/13/2023, Additional history exists FIT 03/18/2025 03/18/2024 Colorectal Cancer Screening 03/18/2027 FIT-DNA 03/18/2027 03/18/2024 Pneumococcal Vaccine: 50+ Years Completed 01/21/2019, [...] Procedure Name Priority Date/Time Associated Diagnosis Comments LEXISCAN STRESS MYOCARDIAL PERFUSION IMAGING Routine 10/30/2024 9:19 AM EDT ECG 12 LEAD UNIT PERFORMED Routine 10/19/2024 11:41 AM EDT Other chest pain from Last 3 Months Results * Lexiscan Stress Myocardial Perfusion Imaging (10/30/2024 9:19 AM EDT) Anatomical Region Laterality Modality Other Historical Provider CV STRESS PROCEDURES Sienna l Result * ECG 12 lead unit performed (10/19/2024 11:41 AM EDT) Gaurav Warren POLISHER BRASS ECG ORDERABLES Final Result from Last 3 Months Insurance [employer] MED[employer]AGE Care Teams De Alcoholizer Relationship Specialty Start Date End Date Moustapha De Leon MD [address] [place] [address] PCP - General Family Medicine 06/02/24
--- OUTSIDE RECORDS SUMMARY | 2024-12-17 11:03 | XMS_ITS | Encounter Summary ---
Author Organization [email or web address] Address [id number] [address] [place] [address] Care Team Providers Care Die Maintenance Name Role Phone Jose David Morton DO Primary Care Provider [phone] Reason for Visit * Reason Comments Med Refill Encounter Details Date Type Department Care Team (Late st Contact Info) Description 06/19/2022 Refill [facility] [address] [place] [address] Jessica Penn, PA-C [address] [facility] [address] [place] [address] Nasal congestion Social History Tobacco Use Types [...] [facility] [address] [place] [address] Mike Jules MD [address] [place] [address] documented as of this encounter Visit Diagnoses Diagnosis Nasal congestion Other diseases of nasal cavity and sinuses documented in this encounter Additional Health Concerns Assessment Noted Time PHQ-9 Depression Total Score: 0 05/23/19 22 10:51 AM EST documented as of this encounter Care Teams Die Maintenance Relationship Specialty Start Date End Date Jose David Morton DO PCP - General Family Medicine 04/01/20 documented as of this encounter
--- OUTSIDE RECORDS SUMMARY | 2024-12-17 11:03 | XMS_ITS | Encounter Summary ---
Author Organization [facility] Address [address] [place] [address] Care Team Providers Care Commissioned Fire Officer Name Role Phone Stephanie Peters OD Unavailable Moustapha De Leon MD Primary Care Provider [phone] Lynsey Rinaldi METAL PATTERN MAKER Unavailable [phone] Delmi Love METAL PATTERN MAKER Unavailable [phone] Encounter Details Date Type Department Care [...] week 11/12/2023 How often do you attend gnosticism or christianity serv ices? Patient declined 11/12/2023 Do you belong to any clubs o r organizations such as gnosticism groups, unions, fraternal or athletic groups, or [...] Recorded Patient Health Questionnaire-2 Score 0 11/18/2023 [facility] - Occupational [...] any time in the past 12 m [facility], were you homeless or living in a detention (including now)? No 11/12/2023 Comments Unknown Sex [...] Visit [facility] [address] [place] [address] Cliff Hong PA [address] [place] [address] 01/20/2025 1:30 PM EDT Office Visit [facility] [address] [place] [address] Panda Campos DO [address] [place] [address] 03/23/2025 1:35 PM EST Office Visit [facility] [address] [place] [address] Shira Tan MD [address] [place] [address] 10/20/2025 11:00 AM EDT Office Visit [facility] [address] [place] [address] Cliff Hong PA [address] [place] [address] [phone] (work) documented as of this encounter Procedures Procedure Name Priority Date/Time Associated Diagnosis Comments CA ECHO DOPPLER COMPLETE 11/28/2023 7:21 PM EDT documented in this encounter Results * CA ECHO DOPPLER COMPLETE (11/28/2023 7:21 PM EDT) Anatomical Region Laterality Modality Other 11/28/2023 7:21 PM EDT Narrative 11/28/2023 7:22 PM EDT [place] [id number] Cardiology Report Signed Patient: BERTHA GALARZA MR#: [id number] : 1950 Acct:[id number] Age/Sex: 73 / F ADM Date: 11/28/23 Loc: CARD Attending Dr: LYNSEY RINALDI Ordering Physician: LYNSEY RINALDI Date of Service: 11/28/23 Procedure(s): CA echo doppler complete Accession Number(s): [id number] cc: LYNSEY RNIALDI Patient Name: BERTHA GALARZA MR#: [id number] : 1950 Exam Date: 11/28/2023 Ordering Doctor: [...] HARRIS Signed By: 11/28/231921 DD/ 20 TD/TT: Talent Acquisition Sourcer: Procedure Note Radiology, Radiologist, MD - 11/28/2023 [place] [address] Cardiology Report Signed Patient: BERTHA GALARZA AMR#: [id number] : 1950cct:[id number] Age/Sex: 73 / FADM Date: 11/28/23 Loc: CARD Attending Dr: LYNSEY RINALDI Ordering Physician: LYNSEY RINALDI Date of Service: 11/28/23 Procedure(s): CA echo doppler complete Accession Number(s): [id number] cc: LYNSEY RINALDI Patient Name: BERTHA GALARZA MR#: [id number] : 1950 Exam Date: 11/28/2023 Ordering Doctor: [...] TRIXIE HARRIS Signed By:11/28/231921 DD/ 20 TD/TT: Talent Acquisition Sourcer: Lynsey Rinaldi METAL PATTERN MAKER [facility] Final Result documented in this encounter Visit Diagnoses Not on filedocumented in this encounter Care Teams Commissioned Fire Officer Relationship Specialty Start Date End Date Moustapha De Leon MD [address] [place] [address] PCP - General Family Medicine 11/08/23 Stephanie Peters OD [facility] [place] [address] Referring Physician Optometry 11/08/23 Lynsey Rinaldi NP [address] [place] [address] Nurse Practitioner Family Medicine 11/13/23 07/14/24 Delmi Love NP [address] [place] [address] Nurse Practitioner Family Medicine 07/15/24 documented as of this encounter
--- OUTSIDE RECORDS SUMMARY | 2024-12-17 11:03 | XMS_ITS | Encounter Summary ---
Author Organization [facility] Address [address] [place] [address] Care Team Providers Care Technical Sales Advisor Name Role Phone Stephanie Peters OD Unavailable Moustapha De Leon MD Primary Care Provider [phone] Lynsey Ortiz ACCOUNTS PAYABLE ASSISTANT Unavailable Delmi Love NP Unavailable [phone] Encounter Details Date Type Department Care Team (Late st Contact Info) Description 03/04/2024 Abstract [facility] [address] [facility] [place] [address] Lynsey Ortiz NP Social History Tobacco Use [...] How often do you attend spiritism or adventism serv ices? Patient declined 11/12/2023 Do you [...] Recorded Patient Health Questionnaire-2 Score 0 02/27/2024 [facility] - [facility]ational Stress Questionnaire Answer Date [...] time in the past 12 m [facility], were you homeless or living in a [...] Visit [facility] [address] [place] [address] Cliff Hong, PA [address] [place] [address] 01/20/2025 1:30 PM EDT Office Visit [facility] [address] [place] [address] Panda Campos DO [address] [place] [address] 03/23/2025 1:35 PM EST Office Visit [facility] [address] [place] [address] Shira Tan MD [address] [place] [address] 10/20/2025 11:00 AM EDT Office Visit [facility] [address] [place] [address] Cliff Hong, PA [address] [address] documented as of this encounter Visit Diagnoses Not on filedocumented in this encounter Additional Health Concerns Assessment Noted Time PHQ-9 Depression Total Score: 0 02/27/20 24 11:00 AM EST documented as of this encounter Care Teams Technical Sales Advisor Relationship Specialty Start Date End Date Moustapha De Leon MD [address] [place] [address] PCP - General Family Medicine 11/08/23 Stephanie Peters OD [address] [place] [address] Referring Physician Optometry 11/08/23 Lynsey Ortiz NP [address] [place] [address] Nurse Practitioner Family Medicine 11/13/23 07/14/24 Delmi Love NP [address] [place] [address] Nurse Practitioner Family Medicine 07/15/24 documented as of this encounter
--- OUTSIDE RECORDS SUMMARY | 2024-12-17 11:03 | XMS_ITS | Encounter Summary ---
Author Organization [facility] Address [address] [place] [address] Care Team Providers Care Electronic News Gathering Editor Name Role Phone Stephanie Peters OD Unavailable Moustapha De Leon MD Primary Care Provider [phone] Lynsey Ortiz BODY MECHANIC APPRENTICE Unavailable Delmi Love BODY MECHANIC APPRENTICE Unavailable [phone] Encounter Details Date Type Department Care Team (Late st Contact Info) Description 05/05/2024 Orders Only [facility] [address] [place] [address] Taiwo Rosa MD [address] [facility] [address] [place] [address] Social History Tobacco Use Types [...] often do you attend latter day or temple serv ices? Patient declined 11/12/2023 [...] Recorded Patient Health Questionnaire-2 Score 0 02/27/2024 [facility]at ional [facility] - Occupational Stress [...] a penitentiary (including now)? No 11/12/2023 Comments No Sex [...] Visit [facility] [address] [place] [address] Cliff Hong PA [address] [place] [address] 01/20/2025 1:30 PM EDT Office Visit [facility] [address] [place] [address] Panda Campos DO [address] [place] [address] 03/23/2025 1:35 PM EST Office Visit [facility] [address] [place] [address] Shira Tan MD [address] [place] [address] 10/20/2025 11:00 AM EDT Office Visit [facility] [address] [place] [address] Cliff Hong PA [address] [facility] [place] [address] documented as of this encounter [...] documented as of this encounter Care Teams Electronic News Gathering Editor Relationship Specialty Start Date End Date Moustapha De Leon MD [address] [place] [address] PCP - General Family Medicine 11/08/23 Stephanie Peters OD [facility] [place] [address] Referring Physician Optometry 11/08/23 Lynsey Ortiz NP [address] [place] [address] Nurse Practitioner Family Medicine 11/13/23 07/14/24 Delmi Love NP [address] [place] [address] Nurse Practitioner Family Medicine 07/15/24 documented as of this encounter
--- OUTSIDE RECORDS SUMMARY | 2024-12-17 11:03 | XMS_ITS | Encounter Summary ---
Author Organization [facility] Address [address] [place] [address] Care Team Providers Care Case Management Specialist Name Role Phone Praveen Jose David Mclean MD Primary Care Provider [phone] Shaikh TIFFANIE Portillo Primary Care Provider [phone] Stephanie Peters OD Unavailable Moustapha De Leon MD Primary Care Provider [phone] Lynsey Ortiz RESIDUE FURNACE OPERATOR Unavailable [phone] Delmi Love RESIDUE FURNACE OPERATOR Unavailable [phone] Encounter Details Date Type Department Care Team (Late Contact Info) Description 04/17/2023 Orders Only [facility] [address] [facility] [place] [address] Shaikh Portillo MD [address] [place] [address] Social History Tobacco Use Types Packs/Day Years [...] Department Care Team (Late Contact Info) Description 12/25/2024 9:45 AM EDT Office Visit [facility] [address] [place] [address] Cliff Hong PA [address] [place] [address] 01/20/2025 1:30 PM EDT Office Visit [facility] [address] [place] [address] Panda Campos DO [address] [place] [address] 03/23/2025 1:35 PM EST Office Visit [facility] [address] [place] [address] Shira Tan MD [address] [place] [address] 10/20/2025 11:00 AM EDT [facility] [address] [place] [address] Cliff Hong PA [address] [place] [address] documented as of this encounter Procedures Procedure Name Priority Date/Time Associated Diagnosis Comments MISCELLANEOUS LAB TEST Routine 04/01/2023 3:54 PM EST documented in this encounter Results * - Miscellaneous Test (04/01/2023 3:54 PM EST) us Shaikh Bandar [facility] BLOOD ORDERABLES Final Resu lt documented in this encounter Visit Diagnoses Not on filedocumented in this encounter Care Teams Case Management Specialist Relationship Specialty Start Date End Date Jose David Morton MD PCP - General Family Medicine 10/11/22 09/02/23 Shaikh Portillo MD [address] [place] [address] PCP - General Internal Medicine 09/03/23 11/07/23 Moustapha De Leon MD [address] [place] [address] PCP - General Family Medicine 11/08/23 Stephanie Peters OD [address] [place] [address] Referring Physician Optometry 11/08/23 Lynsey Ortiz NP [address] [place] [address] Nurse Practitioner Family Medicine 11/13/23 07/14/24 Delmi Love NP [address] [place] [address] Nurse Practitioner Family Medicine 07/15/24 documented as of this encounter
--- OUTSIDE RECORDS SUMMARY | 2024-12-17 11:03 | XMS_ITS | Encounter Summary ---
Author Organization [facility] [employer] tem Address [facility] [id number] [address] [place] [address] Care Team Providers Care Sanitary Chemist Name Role Phone Jose David Morton DO Primary Care Provider [phone] Encounter Details Date Type Department Care Team (Late st Contact Info) Description 05/13/2020 Documentation [facility] [address] [address] Jessica Penn, PA-C [address] [facility] [address] [place] [address] Social History Tobacco Use Types [...] [facility] [address] [place] [address] Mike Jules MD [address] [place] [address] documented as of this encounter Visit Diagnoses Not on filedocumented in this encounter Additional Health Concerns Assessment Noted Time PHQ-9 Depression Total Score: 0 05/11/19 21 11:34 AM EST documented as of this encounter Care Teams Sanitary Chemist Relationship Specialty Start Date End Date Jose David Morton DO PCP - General Family Medicine 04/01/20 documented as of this encounter
--- OUTSIDE RECORDS SUMMARY | 2024-12-17 11:03 | XMS_ITS | Encounter Summary ---
Author Organization [facility] Address [address] [facility] [place] [address] Care Team Providers Care Warehouse Supervisor 3Rd Shift Name Role Phone Stephanie Peters OD Unavailable Moustapha De Leon MD Primary Care Provider [phone] Delmi Love HOSE SEAMER Unavailable [phone] Encounter Details Date Type Department Care Team (Late st Contact Info) Description 10/02/2024 Orders Only [facility] [address] [place] [address] Delmi Love, JADE [address] [place] [address] Numbness and tingling of both feet (Primary [...] How often do you attend temple or presybeterian serv ices? Patient declined 11/12/2023 Do you [...] Recorded Patient Health Questionnaire-2 Score 0 02/27/2024 [facility] Occupat ional Health - [...] any time in the past 12 m [facility], were you homeless or living in [...] Visit [facility] [address] [place] [address] Cliff Hong PA [address] [place] [address] 01/20/2025 1:30 PM EDT Office Visit [facility] [address] [place] [address] Panda Campos DO [address] [place] [address] 03/23/2025 1:35 PM EST Office Visit [facility] [address] [place] [address] Shira Tan MD [address] [place] [address] 10/20/2025 11:00 AM EDT Office Visit [facility] [address] [place] [address] Cliff Hong, PA [address] [facility] [place] [address] documented as of this encounter Visit Diagnoses Diagnosis Numbness and tingling of both feet- Primary documented in this encounter Additional Health Concerns Assessment Noted Time PHQ-9 Depression Total Score: 0 02/27/20 24 11:00 AM EST documented as of this encounter Care Teams Warehouse Supervisor 3Rd Shift Relationship Specialty Start Date End Date Moustapha De Leon MD [address] [place] [address] PCP - General Family Medicine 11/08/23 Stephanie Peters OD [address] [place] [address] Referring Physician Optometry 11/08/23 Delmi Love NP [address] [place] [address] Nurse Practitioner Family Medicine 07/15/24 documented as of this encounter
--- OUTSIDE RECORDS SUMMARY | 2024-12-17 11:03 | XMS_ITS | Clinical Summary ---
Author Organization [employer] Address [facility] [id number] [address] [place] [address] Care Team Providers Care Payroll Coordinator Name Role Phone Jose David Morton DO Primary Care Provider [phone] Allergies Active Allergy Reactions Criticality Noted Date [...] the morning. 15.8 mL 2 3 Active B-complex with vitamin C tablet Take 1 tablet by mouth in the morning. Active omega 4-adi-vqs-fish oil (Fish OiL) 1,000 (120-180) mg capsule Take 1 capsule by mouth in the morning. Active nicotine, polacrilex, 2 mg mini lozenge Apply 2 mg to cheek every 4 (four) hours as needed (craving). 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
--- OUTSIDE RECORDS SUMMARY | 2024-12-17 11:03 | XMS_ITS | Encounter Summary ---
Author Organization [facility] Address [address] [place] [address] Care Team Providers Care Airplane Cover Maker Name Role Phone Stephanie Peters OD Unavailable Moustapha De Leon MD Primary Care Provider Lynsey Ortiz ENGINEERING INSPECTION ASSISTANT Unavailable Delmi Love NP Unavailable [phone] Encounter Details Date Type Department Care Team (Late st Contact Info) Description 05/04/2024 Orders Only [facility] [address] [place] [address] Lynsey Ortiz NP Social History [...] week 11/12/2023 How often do you attend mandaen or restoration serv ices? Patient declined 11/12/2023 Do you belong to any clubs o r organizations such as mandaen groups, unions, fraternal or athletic groups, or [...] Recorded Patient Health Questionnaire-2 Score 0 02/27/2024 [facility] of Occupat ional [facility] - Occupational Stress Questionnaire Answer Date [...] any time in the past 12 m [facility], were you homeless or living in a [...] Visit [facility] [address] [place] [address] Cliff Hong, PA [address] [place] [address] 01/20/2025 1:30 PM EDT Office Visit [facility] [address] [place] [address] Panda Campos DO [address] [place] [address] 03/23/2025 1:35 PM EST Office Visit [facility] [address] [place] [address] Shira Tan MD [address] [place] [address] 10/20/2025 11:00 AM EDT Office Visit [facility] [address] [place] [address] Cliff Hong, PA [address] [place] [address] documented as of this encounter Procedures Procedure Name Priority Date/Time Associated Diagnosis Comments COLONOSCOPY DIAGNOSTIC Routine 05/04/2024 9:48 AM EST documented in this encounter Results * COLONOSCOPY DIAGNOSTIC (05/04/2024 9:48 AM EST) Anatomical Region Laterality Modality Radiographic Angela ging Lynsey Ortiz ENGINEERING INSPECTION ASSISTANT IMG XR PROCEDURES Final Result documented in this encounter Visit Diagnoses Not on filedocumented in this encounter Additional Health Concerns Assessment Noted Time PHQ-9 Depression Total Score: 0 02/27/20 11:00 AM EST documented as of this encounter Care Teams Airplane Cover Maker Relationship Specialty Start Date End Date Moustapha De Leon MD [address] [place] [address] PCP - General Family Medicine 11/08/23 Stephanie Peters OD [address] [place] [address] Referring Physician Optometry 11/08/23 Lynsey Ortiz NP [address] [place] [address] Nurse Practitioner Family Medicine 11/13/23 07/14/24 Delmi Love NP [address] [place] [address] Nurse Practitioner Family Medicine 07/15/24 documented as of this encounter
--- OUTSIDE RECORDS SUMMARY | 2024-12-17 11:11 | XMS_ITS | CCD ---
Author Organization [facility] CliniSydc Care Team Providers Care Tender Labor Name Role Phone DO Jose David Godwin Primary Care Provider DO Jose David Godwin Attending Provider DO Trixie Gr Jr Other Provider [phone] Yuliet Perez Unavailable DO Jose David Godwin Primary Care Provider LUANN Perez Attending Provider [phone] SHAIKH Lorelei ENGEL Admitting Unavailable SHAIKH Lorelei ENGEL Attending Unavailable SHAIKH Lorelei NEGEL Primary Care Unavailable LUCIUS, DR KARI Stern Consulting Unavailable SHAIKH Lorelei ENGEL Consulting Unavailable BINGEN, DR GARDINER Admitting Unavailable BINGEN, DR GARDINER Attending Unavailable BINGEN, DR GARDINER Primary Care Unavailable BINGEN, DR GARDINER Consulting Unavailable BINGEN, DR GARDINER Admitting Unavailable BINGEN, DR GARDINER Attending Unavailable BINGEN, DR GARDINER Primary Care Unavailable BAYARD, DR KRAI Stern Consulting Unavailable BINGEN, DR GARDINER Consulting Unavailable Jose David Godwin MD Primary Care Provider Stephanie Peters OD Unavailable Moustapha De Leon MD Primary Care Provider Kunal Ortiz NP Unavailable [phone] Taiwo Rosa MD Attending Provider Diana HANSEN-Kunal Sanches Primary Care Provid er Kate HANSEN, Delmi Unavailable Jose David Godwin DO Primary Care Provider MIKE GANT Attending Unavailable DARIEN BLANCA Referring Unavailable JOSE DAVID GODWIN Primary Care Unavailable JOSE DAVID GODWIN Referring Unavailable JOSE DAVID GODWIN Primary Care Unavailable Yuliet Perez APRN Attending Provider Diana COMMUNITY ACTION WORKER-CKunal Primary Care Provid er Yuliet Perez APRN Attending Provider Natalee Basilio APRN Attending Provider Delmi Love Primary Care Provider Taiwo Rosa Attending Unavailable Taiwo Rosa Admitting Unavailable Ortiz, Kunal Robles Primary Care Unavaila ble NON STAFF Primary Care Unavailable Natalee Basilio Attending Unavailable Natalee Basilio Admitting Unavailable Yuliet Perez Attending Unavailable Yuliet Perez Admitting Unavailable DANDY CORREA Attending Unavailable ORTIZ, KUNAL Attending Unavailabl e RUSHER, DARIEN Perry Attending Unavailable RUSHER, DARIEN S Referring Unavailable AICHHOLZ, DELMI Attending Unavailable RUSHER, DARIEN S Referring Unavailable AICHHOLZ, DELMI Attending Unavailable YOUNESMIKE Referring Unavailable AICHHOLZ, DELMI Attending Unavailable AICHHOLZ, DELMI Referring Unavailable BEJJAMIA Attending Unavailable AICHHOLZ, DELMI Referring Unavailable RUSHER, DARIEN Perry Attending Unavailable AICHHOLZ, DELMI Attending Unavailable ORTIZ, KUNAL Attending Unavailabl e ORTIZ, KUNAL Referring Unavailabl e ORTZI, KUNAL Attending Unavailabl BEN Amador Attending Unavailable ORTIZ, KUNAL Attending Unavailabl e PETITTBENJAMIN Owusu Attending Unavailable AICHHOLZ, DELMI Attending Unavailable ALGHOTHANIJULIO CESAR Attending Unavailable ALGHOTHANI, JULIO CESAR Attending Unavailable OSKAR, GAURAV Attending Unavailable OSKAR, GAURAV Attending Unavailable Allergies Allergy Classification Reported Allergen(s) Allergy Type Date of Onset Reaction(s) Facility (1 source) Penicillin G Drug Allergy rash [facility] Other (1 source) Penicillin Drug Allergy 09-24-19 20 [facility] Repository (20 sources) Penicillins; Translations: [PENICILLINS] Drug Allergy 12-19-19 13 Hives, Itching, Rash [facility] (20 sources) atorvastatin; Translations: [ATORVASTATIN] Drug Allergy 12-04-19 24 Other [facility] (3 sources) atorvastatin Drug Allergy 08-12-19 25 [facility] (3 sources) Penicillins Propensity to adverse reactions to drug 12-19-19 13 Rash [facility] (1 source) Penicillin Drug Allergy 11-05-19 25 [facility] Repository Medications Current Medications Medication Drug Class(es) Dates Sig (Normalized) Sig (Original) [id number] actuat albuterol 0.09 mg/actuat metered dose [...] 1 capsule by mouth once d aily atorvastatin 20 mg oral tablet (3 sources) [...] Active B Complex-C (b complex-vitamin c) tablet (17 sources) take 1 tablet by mouth in [...] (20 sources) Vitamin D Start: 08-19-2024 End: 01-31-2025 take 1 tablet by mouth once daily cholecalciferol (Vitamin D-3) 125 MCG (5000 UT) tablet Indications: Vitamin D deficiency Take 1 tablet (125 mcg) by mouth Daily 90 tablet 11/02/2024 01/31/2025 Active Start: 08-12-2024 End: 11-10-2024 take 1 [...] by mouth at bedtime fish oil concentrate (Cleveland-3) 1000 MG capsule Indications: Mixed hyperlipidemia (CMS/HCC) [...] 03/02/2024 07/16/2024 Discontinued (Therapy completed) Flonase Active F-Sasgvifqlnxj-Wysqg-B12-B6 (Metanx) 3-90.314-2-35 MG capsule (20 sources) Start: 07-15-2024 End: 10-13-2024 take 1 capsule by mouth in the morning F-Tlesqqiqpgrl-Xrjxp-B12-B6 (Metanx) 3-90.314-2-35 MG capsule Indications: Neuropathy, idiopathic [...] Take before meals. 90 tablet 1 08/12/2024 Active Start: 01-08-2020 take 1 tablet by [...] Orally Active nicotine 2 mg oral lozenge (18 sources) Cholinergic Nicotinic Agonist Start: 08-18-2024 take 2 mg by mouth (buccal) every four hours as needed nicotine polacrilex (Commit) [address] 2 mg into mouth between cheek and gum every 4 (four) hours if needed 08/18/2024 Active ofloxacin 3 mg/ml otic solution (4 sources) Quinolone Antimicrobial Start: 07-16-2024 End: 07-23-2024 ofloxacin (Floxin) 0.3 % otic solution Indications: Acute otitis externa of left ear, unspecified type Administer 10 drops into the left ear Daily for 7 days 10 mL 07/16/2024 07/23/2024 Active omega 8-xbn-zxa-fish oil (Fish OiL) 1,000 (120-180) mg capsule (1 source) take 1 capsule by mouth in the morning omega 8-ald-uen-fish oil (Fish OiL) 1,000 (120-180) mg capsule Take 1 capsule by mouth in the morning. Active [place] 9-Uox-Rkb-Fish Oil (Fish Oil) 100-160-1,000 mg capsule (5 sources) Start: 04-20-2024 take 100-160 capsules by mouth twice daily Start: 04-20-2024 take 100-160 capsule s by mouth twice daily [place] 0-Xrm-Wbo-Fish Oil (Fish Oil) 100-160-1,000 mg capsule Active 2 CAP PO Twice daily April 20, 2024 1:00am Complies with drug therapy Start: 04-20-2024 take 100-160 capsule s by mouth twice daily [place] 5-Gfh-Yzv-Fish Oil (Fish Oil) 100-160-1,000 mg capsule Active 2 CAP PO Twice daily April 20, 2024 1:00am Start: 04-20-2024 take 100-160 capsule s by mouth twice daily [place] 7-Wgy-Nrn-Fish Oil (Fish Oil) 100-160-1,000 mg capsule Active 2 CAP PO Twice daily April 20, 2024 12:00am omeprazole 20 mg delayed release oral capsule (9 sources) Proton Pump Inhibitor Start: 04-20-2024 take 1 capsule by mouth once daily as needed Start: 05-13-2020 take 1 tablet by rihcard th once daily omeprazole (PriLOSEC OTC) 20 [...] in the evening 90 tablet 1 08/12/2024 Active Start: 10-28-2022 rosuvastatin ( Crestor) 10 MG tablet sulfamethoxazole 800 mg / trimethoprim 160 mg oral tablet (2 sources) Dihydrofolate Reductase Inhibitor Antibacterial, Sulfonamide Antimicrobial Start: 11-10-2024 End: 11-17-2024 take 1 tablet by mouth once sulfamethoxazole-trimethoprim (Bactrim DS) 800-160 MG per tablet Indications: Recurrent UTI (urinary tract infection) Take 1 tablet by mouth every 12 (twelve) hours for 7 days 14 tablet 11/10/2024 11/17/2024 Active Start: 11-26-2021 take 1 tablet by richard th every twelve hours Bactrim DS 800-160 MG [...] MG tablet 10/15/2022 08/12/2024 Discontinued (Therapy completed) nitrofurantoin, macrocrystals 25 mg / nitrofurantoin, monohydrate 75 mg oral capsule (11 sources) Nitrofuran Antibacterial Start: 09-10-2024 End: 11-10-2024 take 1 capsule by mouth every twelve hours at mealtime nitrofurantoin, macrocrystal-monoh ydrate, (Macrobid) 100 MG capsule TAKE 1 CAPSULE BY MOUTH EVERY 12 HOURS FOR 7 DAYS WITH FOOD 11/04/2024 11/10/2024 Discontinued (Therapy completed) Problems Active Problems Problem [...] of skin] 02-13-2024 Episodic Nonspecific chest pain (20 sources) Chest pain; Translations: [Other chest pain] [...] Onset: 06-07-2024 04-21-2024 Chronic Other acquired deformities (15 sources) Acquired spondylolisthesis; Translations: [Spondylolisthesis, lumbosacral region] [...] unspecified] 10-13-2024 Chronic Other nervous system disorders (2 sources) Carpal tunnel syndrome; Translations: [Carpal tunnel syndrome, unspecified upper limb] 11-04-2024 Chronic Other nervous system disorders (20 sources) [...] unspecified; Translations: [Pain, unspecified] Onset: 08-12-2024 Episodic Residual codes; unclassified (6 sources) Lung cancer screening declined; Translations: [Procedure and treatment not carried out because of patient's decision for unspecified reasons] Onset: 11-09-2024 11-09-2024 Episodic Retinal detachments; defects; vascular occlusion; and retinopathy (20 sources) Bilateral epiretinal membrane of eyes; Translations: [Puckering of macula, bilateral] Onset: 11-08-2023 11-08-2023 Chronic Spondylosis; intervertebral disc disorders; other back problems (17 sources) Cervical spondylosis; Translations: [Spondylosis without myelopathy or radiculopathy, cervical region] Onset: 09-29-2024 09-29-2024 Chronic Spondylosis; intervertebral disc disorders; other back problems (20 sources) Low back pain; Translations: [Lumbar back pain] Onset: 09-24-2024 09-24-2024 Episodic Substance-related disorders (20 sources) Tobacco dependence syndrome; Translations: [Nicotine dependence, unspecified, uncomplicated] Onset: 04-13-2024 Resolved: 11-09-2024 04-13-2024 Chronic Thyroid disorders (20 sources) Hypothyroidism, unspecified; Translations: [Hypothyroidism] Onset: 02-06-2022 Chronic Unclassified (3 sources) LOW BACK PAIN, UNSPECIFIED; Translations: [LOW BACK PAIN, UNSPECIFIED] Onset: 07-07-2022 Unclassified (3 sources) Smoker; Translations: [Smoking] Onset: 06-13-2020 06-13-2020 Unclassified (1 source) New Patient Onset: 08-18-2024 Urinary tract infections (20 sources) Acute cystitis with hematuria; Translations: [Cystitis] Onset: 11-26-2021 Resolved: 04-13-2024 Episodic Viral infection (2 sources) Verruca plantaris; Translations: [...] 12-19-2023 Episodic Genitourinary symptoms and ill-defined conditions (20 sources) Dysuria; Translations: [Urinary symptoms ] Onset: [...] MALIG NEOPLASM DIGESTIV ORGN] Onset: 04-03-2022 Episodic Residual codes; unclassified (20 sources) Family history of coronary arteriosclerosis; Translations: [Family history of ischemic heart disease and other diseases of the circulatory system] Onset: 08-12-2024 Resolved: 09-24-2024 08-12-2024 Episodic Unclassified (1 source) LOW BACK PAIN, UNSPECIFIED; Translations: [LOW BACK PAIN, UNSPECIFIED] Onset: 07-03-2022 Unclassified (1 source) Patient encounter status 03-26-2024 Results Test Name Value Interpretation Reference Range Facility 29on 11-13-2024 29 Addended by: GAURAV SCHMITT on: 11/13/2024 12:01 PM Modules accepted: Orders Normal [facility] Office Visiton 11-13-2024 Follow-up visit [id number] Bertha Galarza 1950 F Date Provider Department Center 11/13/2024 [id number], ADAM CARD Kailee Hos Family History Problem Relation Age of Onset Coronary artery disease Mother Coronary artery disease Sister Coronary artery disease Brother Family Status - Relation Status Age at Mother Sister Brother Level of Service:44543 [place] OFFICE/OUTPATIENT ESTABLISHED MOD MDM 30 MIN Normal [facility] Urine Cultureon 11-04-2024 Bacteria identified Cx Nom (U) ORGANISM: Escherichia coli (O:ESCCOL) Jewell Count >100,000 Aerobic ALMA Charge (NMIC56) ---- [...] RESISTANT TO ALL B-LACTAM DRUGS. PERFORMED BY: [place] [address] PATHOLOGIST CURING ROOM SUPERVISOR DAVI BURGOS M.D. Normal [facility] Comment on above: Performed By: #### C UU #### [place] [address] [place] Orders Onlyon 11-02-2024 Orders Only [id number] Bertha Galarza 1950 F Date Provider Department Center 11/02/2024 [id number], HISTORICAL CARD Kailee Hos Family History Problem Relation Age of Onset Coronary artery disease Mother Coronary artery disease Sister Coronary artery disease Brother Family Status - Relation Status Age at Mother Sister Brother Normal [facility] NM UNA PERF SPECT REST STRon 11-01-2024 [place] [address] Nuclear Medicine Report Signed Patient: BERTHA GALARZA MR#: [id number] : 1950 Acct:[id number] Age/Sex: 74 / F ADM Date: 10/30/24 Loc: NM Attending Dr: Gaurav Schmitt NP Ordering Physician: Gaurav Schmitt NP Date of Service: 10/30/24 Procedure(s): NM una perf SPECT rest str Accession Number(s): [id number] cc: Delmi Love NP; Gaurav Schmitt NP Patient Name: BERTHA GALARZA MR#: [id number] : 1950 Exam Date: 10/30/2024 Ordering Doctor: GAURAV SCHMITT RADIOLOGY REPORT PROCEDURE: NM UNA PERF SPECT REST STR COMPARISON: None. INDICATIONS: [...] the study was pending per attending physician [facility] . For more details please see separate [...] M.D. Signed By: 11/01/241834 DD/ 33 TD/TT: Carbon Dioxide Operator: [facility] Radiology, Radiologist, MD - 11/01/2024 [place] [address] Nuclear Medicine Report Signed Patient: BERTHA GALARZA MR#: [id number] : 1950 Acct:[id number] Age/Sex: 74 / F ADM Date: 10/30/24 Loc: NM Attending Dr: Gaurav Schmitt NP Ordering Physician: Gaurav Schmitt NP Date of Service: 10/30/24 Procedure(s): NM una perf SPECT rest str Accession Number(s): [id number] cc: Delmi Love COMMUNITY ACTION WORKER; Gaurav Schmitt NP Patient Name: BERTHA GALARZA MR#: [id number] : 1950 Exam Date: 10/30/2024 Ordering Doctor: GAURAV SCHMITT RADIOLOGY REPORT PROCEDURE: NM UNA PERF SPECT REST STR COMPARISON: None. INDICATIONS: [...] the study was pending per attending physician [facility] . For more details please see separate [...] M.D. Signed By: 11/01/241834 DD/ 33 TD/TT: Carbon Dioxide Operator: [facility] Radiology Study observation (narrative) [facility] NM UNA PERF SPECT REST STROr dered By: Radiologist Radiology on 11-01-2024 [facility] [employer] Work Phone: ALL LIPID PROFILE (FASTING)o n 10-20-2024 CHOL HDL RATIO 3 [facility]care Comment on above: 3.3 - 4.4 LOW RISK 4.4 - 7.1 AVERAGE RISK 7.1 - 11.0 MODERATE RISK >11.0 HIGH RISK Cholesterol [Mass/Vol] 152 mg/dL NINF - 200 mg/dL [facility] Cholesterol in HDL [Mass/Vol] 50 mg/dL 40 - 60 mg/dL [facility] Comment on above: > or =60 mg/dl - LOW CARDIOVASCULAR RISK <40 mg/dl - HIGH CARDIOVASCULAR RISK Interpretation and review of laboratory results Abnormal [facility] Magnesium [Mass/Vol] 32 mg/dL [facility] Comment on above: <100 mg/dl OPTIMAL 100-129 mg/dl NEAR OR ABOVE OPTIMAL 130-159 mg/dl BORDERLINE HIGH 160-189 mg/dl HIGH >190 mg/dl VERY HIGH Magnesium [Mass/Vol] 70.2 mg/dL [facility] Triglyceride [Mass/Vol] 351 mg/dL High NINF - 150 mg/dL [facility] [employer] Office Visiton 10-19-2024 Follow-up visit [id number] Bertha Galarza 1950 F Date Provider Department Center 10/19/2024 [id number], ADAM [facility] Kailee Hos Family History Problem Relation Age of Onset Coronary artery disease Mother Coronary artery disease Sister Coronary artery disease Brother Family Status - Relation Status Age at Mother Sister Brother Level of Service:73403 [place] OFFICE/OUTPATIENT ESTABLISHED MOD MDM 30 MIN Normal [facility] XR CERVICAL SPINE 2-3 VIEWSo n 09-28-2024 [...] report is generated using voice recognition reporting ([employer]). On occasion, [employer] erroneously drops words from the report or [...] report is generated using voice recognition reporting (Get[employer]). On occasion, [employer] erroneously drops words from the report or replaces the spoken word with a similar sounding word. Please call with any questions/concerns regarding the report. Dictated on: 09/28/2024 1:06 PM 09/28/2024 9:36 AM This report has been electronically signed and approved by the interpreting Radiologist. Normal Not Available Laboratory - Chemistry and C hemistry - challengeon 09-10-2024 Bilirubin Ql (U) Negative [facility] Glucose (U) [Mass/Vol] Negative [facility] Ketones Ql (U) Negative [facility] pH (U) 6.0 [pH] [facility] Specific gravity (U) [Rel density] 1.025 [facility] Urobilinogen (U) [Mass/Vol] 0.2 mg/dL [facility] Laboratory - Specimen inform ationon 09-10-2024 Appearance (U) cloudy [facility] Color (U) yellow [facility] Laboratory - Urinalysison Leukocyte esterase Test strip Ql (U) large [facility] Nitrite Ql (U) Positive [facility] Protein Ql (U) 100 [facility] No Panel Informationon 09-10 Urine Occ[address] Blood moderate [facility] Urine Cultureon 09-10-2024 Bacteria identified Cx Nom (U) ORGANISM: Escherichia coli (O:ESCCOL) Jewell Count >100,000 Aerobic ALMA Charge (NMIC56) ---- [...] RESISTANT TO ALL B-LACTAM DRUGS. PERFORMED BY: [place] [address] PATHOLOGIST CURING ROOM SUPERVISOR DAVI BURGOS M.D. Normal [facility] Comment on above: Performed By: #### C UU #### [address] Urine cultureOrdered By: Litzy Perez on 09-10-2024 Bacteria identified Cx Nom (U) Escherichia coli Abnormal [facility] ECG 12-LEADon 08-27-2024 [place] [address] Electrocardiograph Report Signed Patient: BERTHA GALARZA MR#: [id number] : 1950 Acct:[id number] Age/Sex: 74 / F ADM Date: 08/26/24 Loc: CARD Attending Dr: Delmi Love NP Ordering Physician: Delmi Love NP Date of Service: 08/26/24 Procedure(s): ECG 12 lead Accession Number(s): [id number] cc: [facility] Test Date: 2024-08-26 Pat Name: BERTHA GALARZA Department: Room: - Gender: Female Control Inspector: : 1950 Requested By: DELMI LOVE Order Number: [id number] Reading MD: TRIXIE AVENDAÑO M.D. Measurements Intervals [place] Rate: 82 P: 79 [place]: 153 QRS: -70 QRSD: 120 T: 59 [...] AVENDAÑO Signed By: 08/27/24194208/27/241942 DD/ 1318 TD/TT: Carbon Dioxide Operator: [facility] Radiology, Radiologist, MD - 08/27/2024 [place] [address] Electrocardiograph Report Signed Patient: BERTHA GALARZA MR#: [id number] : 1950 Acct:[id number] Age/Sex: 74 / F ADM Date: 08/26/24 Loc: CARD Attending Dr: Delmi Love NP Ordering Physician: Delmi Love NP Date of Service: 08/26/24 Procedure(s): ECG 12 lead Accession Number(s): [id number] cc: [facility] Test Date: 2024-08-26 Pat Name: BERTHA GALARZA Department: Room: - Gender: Female Control Inspector: : 1950 Requested By: DELMI LOVE Order Number: [id number] Reading MD: TRIXIE AVENDAÑO M.D. Measurements Intervals [place] Rate: 82 P: 79 [place]: 153 QRS: -70 QRSD: 120 T: 59 [...] By: TRIXIE AVENDAÑO Signed By: 08/27/24194208/27/241942 DD/ 17 TD/TT: Carbon Dioxide Operator: [facility] ECG 12-LEADOrdered By: Radio logist Radiology on 08-27-2024 [facility] Work Phone: ALL CBC WITH AUTO DIFFon BASOPHILS ABSOLUTE AUTO 0 [facility] Basophils/100 WBC (Bld) 0.2 % 0.2 - 2.0 % [facility] Eosinophils/100 WBC (Bld) 1.4 % 0.9 - 7.0 % [facility] Erythrocyte distribution width (RBC) [Ratio] 12.3 % 11.0 - 15.0 % [facility] Hematocrit (Bld) [Volume fraction] 42.4 % 36.0 - 48.0 % [facility] Hemoglobin (Bld) [Mass/Vol] 14.3 g/dL 12.0 - 16.0 g/dL [facility] IMMATURE GRANULOCYTES ABS AUTO 0.02 [facility] Immature granulocytes/100 WBC (Bld) 0.2 % 0.0 - 0.5 % [facility] Interpretation and review of laboratory results Abnormal [facility] LYMPHOCYTES ABSOLUTE AUTO 1.7 [facility] Lymphocytes/100 WBC (Bld) 20.7 % 20.5 - 60.0 % [facility] MCH (RBC) [Entitic mass] 32.1 pg 26.7 - 34.[address] [facility] MCHC (RBC) [Mass/Vol] 33.7 g/dL 29.9 - 35.2 g/dL [facility] MCV (RBC) [Entitic vol] 95.3 fL 81.0 - 99.[address] [facility] MONOCYTES ABSOLUTE AUTO 0.8 [facility] Monocytes/100 WBC (Bld) 10.2 % 1.7 - 12.0 % [facility] NEUTROPHILS ABSOLUTE AUTO 5.4 [facility] Neutrophils/100 WBC (Bld) 67.3 % 43.0 - 75.0 % [facility] Platelet mean volume (Bld) [Entitic vol] 9.2 fL Low 9.5 - 13.[address] [facility] TBH EO # 0.1 [facility] e TB PLT 230 [facility] e TB RBC 4.45 [facility] TB[facility] WBC 8.1 [facility] e ECG 12-LEADon 08-26-2024 Radiology Study observation (narrative) [facility] US LOWER EXTREMITY VENO US INSUFFICIENCY BILATERALon 08-25-2024 [facility] US LOWER EXTREMITY VENOUS INSUFFICIENCY BILATERAL EXAM: [...] report is generated using voice recognition reporting ([employer]). On occasion [employer] erroneously drops words from the report or replaces the spoken word with similar sounding words. Please call with any questions/concerns regarding this report.* Dictated and transcribed 08/25/24/dpd This report has been electronically signed and approved by the interpreting radiologist. Normal Not Available No Panel Informationon 07-15 Radiology Study observation (narrative) [facility] US PVR/SEGMENTAL PRESSU RES LOWERon 07-15-2024 [facility] US PVR/SEGMENTAL PRESSURES LOWER EXAM: Lower Extremity [...] report is generated using voice recognition reporting ([employer]). On occasion Ascension Technology Groupcribe erroneously drops words from the report or [...] There is slight increase in [place] angle. [facility] e XR Foot - right 3 Viewson [...] There is slight increase in [place] angle. [facility] CALCIUMon 06-05-2024 Calcium [Mass/Vol] 9.3 mg/dL 8.5 - 10. 1 mg/dL [facility] [facility] Office Visiton 06-02-2024 Follow-up visit [id number] Bertha Galarza 1950 F Date Provider Department Center 06/02/2024 [id number] CESAR [place] Family History Problem Relation Age of Onset Coronary artery disease Mother Coronary artery disease Sister Coronary artery disease Brother Family Status - Relation Status Age at Mother Sister Brother Level of Service:32833 [place] OFFICE/OUTPATIENT ESTABLISHED LOW MDM 20 MIN Normal [facility] Optical coherence tomography study reporton 05-25-2024 [facility] [employer] Radiology Study observation (narrative) [facility] 05-01-2024 L - -------- Specimen: [id number] Received: 05/01/24 Status: LUCAS Shaw Num: [id number] Spec Type: Surgical Subm Dr: Taiwo Rosa MD Tissues: A Colon Biopsy (CECUM COLON POLYPS) B Colon Biopsy (TRANSVERSE COLON POLYPS) C Colon Biopsy (DESCENDING COLON POLYPS) D Colon Biopsy (SIGMOID COLON POLYP) Procedures: Cayden HARRISON/Rand L4/4 -------- Age/ Patient Sex Location Account Attending Physician -------- Bertha Galarza 74/F [id number] Taiwo Rosa MD -------- SPEC NUM: [id number] RECD: 05/01/24 STATUS: LUCAS RILEY NUM: [id number] ANGELITA: 05/01/24 [facility] DR: Taiwo Rosa MD ENTERED: 05/01/24-1339 [facility] DR: SPEC TYPE: Surgical DEPT: S ENTERED BY: [id number] RECV BY: [id number] ORDERED: HE/10, Gross/Micro L4/4 ORDERED: HE/10, Gross/Micro [...] in a single cassette. (1, ns, [id number] A) GENE -------- Specimen: [id number] Received: 05/01/24 Status: LUCAS Riley Num: [id number] Spec Type: Surgical Subm Dr: Taiwo Rosa MD Tissues: A Colon Biopsy (CECUM COLON POLYPS) B Colon Biopsy (TRANSVERSE COLON POLYPS) C Colon Biopsy (DESCENDING COLON POLYPS) D Colon Biopsy (SIGMOID COLON POLYP) Procedures: HE/10, Gross/Micro L4/4 -------- Patient: Bertha Galarza [id number] (Continued) -------- Specimen: [id number] Received: 05/01/24 (Continued) Gross Description (Continued) Signed (signature on file) Rik Juárez MD 05/04/24 1453 -------- Specimen: [id number] Received: 05/01/24 Status: LUCAS Shaw Num: [id number] Spec Type: Surgical Subm Dr: Taiwo Rosa MD Tissues: A Colon Biopsy (CECUM COLON POLYPS) B Colon Biopsy (TRANSVERSE COLON POLYPS) C Colon Biopsy (DESCENDING COLON POLYPS) D Colon Biopsy (SIGMOID COLON POLYP) Procedures: RANDALL/Cayden Jackson/Micro L4/4 -------- Patient: Bertha Galarza [id number] (Continued) -------- Specimen: Received: 05/01/24-2667 (Continued) Gross Description (Continued) Part B is [...] specimen entirely submitted in B2. (2, ns, 1- B) Part C is received in formalin labeled with the patients name, date of , and descending colon are 2 sen-boles, focally erythematous, friable, 0.3 and 0.5 cm in greatest dimension polypoid fragments. The specimen is entirely submitted in a single cassette. (1, ns, S24- C) Part D is received in formalin [...] submitted in a single cassette. (1, ns, 7- D) CPT Codes 95264b7 -------- (more content not included)... Normal [facility] MLR HEMOGLOBIN A1Con 024 Glucose [Mass/Vol] 123 mg/dL [facility] HbA1c (Bld) [Mass fraction] 5.9 % 4.5 - 6.2 % [facility] Comment on above: ADA RECOMMENDED LIMI T 4.0 - 6.0 ADA THERAPEUTIC TARGET < 7.0 ACTION SUGGESTED > 7.0 [facility] ALL LIPID PROFILE (FASTING)o n 02-18-2024 CHOL HDL RATIO 3.3 [facility] Comment on above: 3.3 - 4.4 LOW RISK 4.4 - 7.1 AVERAGE RISK 7.1 - 11.0 MODERATE RISK >11.0 HIGH RISK Cholesterol [Mass/Vol] 160 mg/dL NINF - 200 mg/dL [facility] Cholesterol in HDL [Mass/Vol] 49 mg/dL 40 - 60 mg/dL [facility] Comment on above: > or =60 mg/dl - LOW CARDIOVASCULAR RISK <40 mg/dl - HIGH CARDIOVASCULAR RISK Interpretation and review of laboratory results Abnormal [facility] Magnesium [Mass/Vol] 49 mg/dL [facility] Comment on above: <100 mg/dl OPTIMAL 100-129 mg/dl NEAR OR ABOVE OPTIMAL 130-159 mg/dl BORDERLINE HIGH 160-189 mg/dl HIGH >190 mg/dl VERY HIGH Magnesium [Mass/Vol] 62.6 mg/dL [facility] Triglyceride [Mass/Vol] 313 mg/dL High NINF - 150 mg/dL [facility] TSH W/REFLEX T4on 01-22-2024 TSH Qn 0.892 m[IU]/L [facility] Office Visiton 12-04-2023 Follow-up visit [id number] Bertha Galarza 1950 F Date Provider Department [place] 12/04/2023 [id number]-JULIO CESAR BORREGO [facility] Family History Problem Relation Age of Onset Coronary artery disease Mother Coronary artery disease Sister Coronary artery disease Brother Family Status - Relation Status Age at Mother Sister Brother Level of Service:11144 OK OFFICE/OUTPATIENT NEW LOW MDM 30 MINUTES Normal [facility] US CAROTID ARTERY DUPLE X BILATERALon 11-20-2023 [facility] US CAROTID ARTERY DUPLEX BILATERAL [...] report is generated using voice recognition reporting ([employer]). On occasion [employer] erroneously drops words from the report or replaces the spoken word with similar sounding words. Please call with any questions/concerns regarding this report.* Dictated and transcribed 11/25/23/dpd This report has been electronically signed and approved by the interpreting radiologist. Electronically Signed Jamia Riddle M.D. 2023-11-25 14:40:34 Normal Not Available DIRECT LDLon 07-03-2022 Cholesterol in LDL [Mass/Vol] 174 mg/dL Normal [facility] Comment on above: Performed By: #### D LDL, LIPID, TSH #### [facility] [address] [address] [address] Radha Farris DLDL NORMAL SEE BELOW Normal [facility] Comment on above: Result Comment: <100 mg/dl OPTIMAL 100 - 129 mg/dl NEAR OR ABOVE OPTIMAL 130 - 159 mg/dl BORDERLINE HIGH 160 - 189 mg/dl HIGH >190 mg/dl VERY HIGH Performed By: #### D LDL, LIPID, TSH #### [facility] [address] [address] [address] Radha Farris LIPID PROFILEon 07-03-2022 CHOL-HDL RATIO NORM SEE BELOW Normal [facility] Comment on above: Result Comment: 3.3 - 4.4 LOW RISK 4.4 - 7.1 AVERAGE RISK 7.1 - 11.0 MODERATE RISK >11.0 HIGH RISK Performed By: #### D LDL, LIPID, TSH #### [facility] [address] [address] [address] Radha Farris Cholesterol [Mass/Vol] 395 mg/dL Critically high <=200 [facility] Comment on above: Performed By: #### D LDL, LIPID, TSH #### [facility] [address] [address] [address] Radha Farris Cholesterol in HDL [Mass/Vol] 35 mg/dL Critically low 40-60 [facility] Comment on above: Performed By: #### D LDL, LIPID, TSH #### [facility] [address] [address] [address] Radha Farris Cholesterol.total/C holesterol in HDL [Mass ratio] 11.3 {ratio} Normal [facility] Comment on above: Performed By: #### D LDL, LIPID, TSH #### [facility] [address] [address] [address] Radha Farris HDL NORMAL > or = 60 mg/dl - LO W CARDIOVASCULAR RISK <40 mg/dl - HIGH CARDIOVASCULAR RISK Normal [facility] Comment on above: Performed By: #### D LDL, LIPID, TSH #### [facility] [address] [address] [address] Radha Farris Triglyceride [Mass/Vol] 935 mg/dL Critically high <=150 [facility] Comment on above: Performed By: #### D LDL, LIPID, TSH #### [facility] [address] [place], [place] [address] Dr. Radha Farris TSHon 07-03-2022 TSH 0.906 uIU/mL Normal 0.358-3.740 [facility] Comment on above: Performed By: #### D LDL, LIPID, TSH #### [facility] [address] [place], [place] [address] Dr. Radha Farris XR LSPINE 2_3 VIEWSon [...] by: KARI KAN Date: 2022-07-03 13:22 Normal [facility] MAMM SCREEN 3D RABIA CADon 03-29-2022 MG MAMM SCREEN 3D RABIA CAD Patient: BERTHA GALARZA Exam Date: 03/29/2022 : 1950 Gender:F Ordering : DR JOSE DAVID GODWIN D.O. Admission #: [id number] Family : Order #: [id number] CLICK HERE TO VIEW EXAM RADIOLOGY REPORT [...] colon cancer at age 55. LOCATION: [facility] BREAST COMPOSITION: Scattered areas fibroglandular density. [...] on 03/29/2022 at 13:21 Approved by: Kari Kna MD on 03/29/2022 at 13:23 Normal [facility] T4on 02-06-2022 T4 [Mass/Vol] 9.60 ug/dL Normal 4.80-13.90 [facility] Comment on above: Performed By: #### T 4, TSH #### [facility] [address] [address] [address] Radha Farris TSHon 02-06-2022 TSH 0.188 uIU/mL Critically low 0.358-3.740 [facility] Comment on above: Performed By: #### T 4, TSH #### [facility] [address] [address] [address] Radha Farris Urine culture routineOrdered By: Yuliet Perez on 11-29-2021 Bacteria identified Cx Nom (U) Escherichia coli [facility] [place] Urinalysis - AUTOMATEDon Appearance (U) clowdy [facility] Other Bilirubin Ql (U) Negative Kite Other Color (U) yellow [facility] Other Glucose Ql (U) Negative [facility] Other Hemoglobin Ql (U) small Treater Other Ketones Ql (U) Negative [facility] Other Leukocyte esterase Test strip Ql (U) large [facility] Other Nitrite Ql (U) Negative [facility] Other pH (U) 6.0 [pH] [facility] Other Protein Ql (U) 30 [facility] Other Specific gravity (U) [Rel density] 1.020 [facility] Other Urobilinogen (U) [Mass/Vol] 0.2 mg/dL [facility] Other Urinalysis - AUTOMATED [facility] Other Urine Cultureon 11-26-2021 Urine Culture 20,000 [facility] Other Urine Culture <16 Susceptible [facility] Other Urine Culture <8 Susceptible [facility] Other Urine Culture <4 Susceptible [facility] Other Urine Culture <2 Susceptible [facility] Other Urine Culture <1 Susceptible [facility] Other Urine Culture <0.5 Susceptible [facility] Other Urine Culture <32 Susceptible [facility] Other Urine Culture <2/38 Susceptible [facility] Other Vital Signs Date Time Vital Sign Value Performing Clinician Facility 11-09-2024 15:15-0400 Body mass index (BMI) [Ratio] 32.35 kg/m2 Delmi Love [employer]ITY [employer] WORKER Work Phone: [facility] 11-09-2024 15:15-0400 Body temperature 98.49 [degF] Delmi Love COMMUNITY ACTION WORKER Work Phone: [facility] 11-09-2024 15:15-0400 Body weight 90.9 kg Delmi Love COMMUNITY ACTION WORKER Work Phone: [facility] 11-09-2024 15:15-0400 Diastolic blood pressure 76 mm[Hg] Delmi Aichholz COMMUNITY ACTION WORKER Work Phone: [facility] 11-09-2024 15:15-0400 Heart rate 84 /min Delmilea Perezz COMMUNITY ACTION WORKER Work Phone: [facility] 11-09-2024 15:15-0400 Respiratory rate 18 /min Delmi Jonesholz COMMUNITY ACTION WORKER Work Phone: [facility] 11-09-2024 15:15-0400 SaO2% (BldA) [Mass fraction] 93 % Delmi Perezz COMMUNITY ACTION WORKER Work Phone: [facility] 11-09-2024 15:15-0400 Systolic blood pressure 132 mm[Hg] Delmi Jonesholz COMMUNITY ACTION WORKER Work Phone: [facility] 11-04-2024 18:28-0400 Body height 167.64 cm Kunal Ortiz COMMUNITY ACTION WORKER-C Work Phone: [facility] [place] 11-04-2024 18:28-0400 Body mass index (BMI) [Ratio] 32.3 kg/m2 Kunal Ortiz COMMUNITY ACTION WORKER-C Work Phone: [facility] [place] 11-04-2024 18:28-0400 Body temperature 97.4 [degF] Kunal Ortiz COMMUNITY ACTION WORKER-C Work Phone: [facility] [place] 11-04-2024 18:28-0400 Body weight 90.71 kg Kunal Ortiz COMMUNITY ACTION WORKER-C Work Phone: [facility] [place] 11-04-2024 18:28-0400 Diastolic blood pressure 73 mm[Hg] Kunal Ortiz COMMUNITY ACTION WORKER-C Work Phone: [facility] [place] 11-04-2024 18:28-0400 Heart rate 101 /min Kunal Ortiz COMMUNITY ACTION WORKER-C Work Phone: [facility] [place] 11-04-2024 18:28-0400 Respiratory rate 18 /min Kunal Ortiz COMMUNITY ACTION WORKER-C Work Phone: [facility] [place] 11-04-2024 18:28-0400 SaO2% (BldA) [Mass fraction] 95 % Kunal Smithtrick COMMUNITY ACTION WORKER-C Work Phone: [facility] [place] 11-04-2024 18:28-0400 Systolic blood pressure 142 mm[Hg] Kunal Smithtrick COMMUNITY ACTION WORKER-C Work Phone: [facility] [place] 10-14-2024 10:34-0400 Body height 167.6 cm Darien Evangelist DPM Work Phone: [facility] 10-14-2024 10:34-0400 Body mass index (BMI) [Ratio] 32.77 kg/m2 Darien Evangelist DPM Work Phone: [facility] 10-14-2024 10:34-0400 Body weight 92.08 kg Darien Rus DPM Work Phone: [facility] 09-24-2024 15:38-0400 Body mass index (BMI) [Ratio] 32.77 kg/m2 Delmi Chrisz [employer]UNITY ACTION WORKER Work Phone: [facility] 09-24-2024 15:38-0400 Body temperature 98.29 [degF] Delmi Magdalenaloreleiholz COMMUNITY ACTION WORKER Work Phone: [facility] 09-24-2024 15:38-0400 Body weight 92.08 kg Delmi Chrisz COMMUNITY ACTION WORKER Work Phone: [facility] 09-24-2024 15:38-0400 Diastolic blood pressure 64 mm[Hg] Delmi Karenholz COMMUNITY ACTION WORKER Work Phone: [facility] 09-24-2024 15:38-0400 Heart rate 76 /min Delmi Karenholz COMMUNITY ACTION WORKER Work Phone: [facility] 09-24-2024 15:38-0400 Respiratory rate 18 /min Delmi Karenholz COMMUNITY ACTION WORKER Work Phone: [facility] 09-24-2024 15:38-0400 SaO2% (BldA) [Mass fraction] 93 % Delmi Love COMMUNITY ACTION WORKER Work Phone: [facility] 09-24-2024 15:38-0400 Systolic blood pressure 112 mm[Hg] Delmi Love COMMUNITY ACTION WORKER Work Phone: [facility] 09-10-2024 14:22-0400 Body height 167.64 cm [facility] 09-10-2024 14:22-0400 Body mass index (BMI) [Ratio] 32.5 kg/m2 [facility] [place] 09-10-2024 14:22-0400 Body temperature 97.7 [degF] [facility] 09-10-2024 14:22-0400 Body weight 91.34 kg [facility] 09-10-2024 14:22-0400 Diastolic blood pressure 69 mm[Hg] [facility] [place] 09-10-2024 14:22-0400 Heart rate 83 /min [facility] 09-10-2024 14:22-0400 Respiratory rate 18 /min [facility] 09-10-2024 14:22-0400 SaO2% (BldA) [Mass fraction] 95 % [facility] [place] 09-10-2024 14:22-0400 Systolic blood pressure 133 mm[Hg] [facility] 08-18-2024 16:03-0400 Body height 165.1 cm Mike Gant MD Work Phone: [facility] 08-18-2024 16:03-0400 Body mass index (BMI) [Ratio] 33.95 kg/m2 Mike Gant MD Work Phone: [facility] 08-18-2024 16:03-0400 Body weight 92.53 kg Mike Gant MD Work Phone: [facility] 08-18-2024 16:03-0400 Diastolic blood pressure 76 mm[Hg] Mike Gant MD Work Phone: [facility] 08-18-2024 16:03-0400 Heart rate 83 /min Mike Gant MD Work Phone: [facility] 08-18-2024 16:03-0400 SaO2% (BldA) [Mass fraction] 94 % Mike Gant MD Work Phone: [facility] 08-18-2024 16:03-0400 Systolic blood pressure 120 mm[Hg] Mike Gant MD Work Phone: [facility] 08-12-2024 13:44-0400 Body mass index (BMI) [Ratio] 32.89 kg/m2 Delmi Aichholz [employer]ITY ACTION WORKER Work Phone: [facility] 08-12-2024 13:44-0400 Body temperature 97.59 [degF] Delmi Aichholz COMMUNITY ACTION WORKER Work Phone: [facility] 08-12-2024 13:44-0400 Body weight 92.44 kg Delmi Aichholz COMMUNITY ACTION WORKER Work Phone: [facility] 08-12-2024 13:44-0400 Diastolic blood pressure 72 mm[Hg] Delmi Aichholz COMMUNITY ACTION WORKER Work Phone: [facility] 08-12-2024 13:44-0400 Heart rate 82 /min Delmi Aichholz COMMUNITY ACTION WORKER Work Phone: [facility] 08-12-2024 13:44-0400 Respiratory rate 20 /min Delmi Aichholz COMMUNITY ACTION WORKER Work Phone: [facility] 08-12-2024 13:44-0400 SaO2% (BldA) [Mass fraction] 94 % Delmi Aichholz COMMUNITY ACTION WORKER Work Phone: [facility] 08-12-2024 13:44-0400 Systolic blood pressure 120 mm[Hg] Delmi Aichholz COMMUNITY ACTION WORKER Work Phone: [facility] 07-16-2024 11:41-0400 Body mass index (BMI) [Ratio] 32.64 kg/m2 Delmi Aichholz COMMUNITY ACTION WORKER Work Phone: [facility] 07-16-2024 11:41-0400 Body temperature 98.29 [degF] Delmi Love COMMUNITY ACTION WORKER Work Phone: [facility] 07-16-2024 11:41-0400 Body weight 91.72 kg Delmi Perezz COMMUNITY ACTION WORKER Work Phone: [facility] 07-16-2024 11:41-0400 Diastolic blood pressure 70 mm[Hg] Delmi Perezz COMMUNITY ACTION WORKER Work Phone: [facility] 07-16-2024 11:41-0400 Heart rate 95 /min Delmilea Jonesholz COMMUNITY ACTION WORKER Work Phone: [facility] 07-16-2024 11:41-0400 Respiratory rate 18 /min Delmi Perezz COMMUNITY ACTION WORKER Work Phone: [facility] 07-16-2024 11:41-0400 SaO2% (BldA) [Mass fraction] 97 % Delmi Perezz COMMUNITY ACTION WORKER Work Phone: [facility] 07-16-2024 11:41-0400 Systolic blood pressure 108 mm[Hg] Delmi Perezz COMMUNITY ACTION WORKER Work Phone: [facility] 07-15-2024 10:32-0400 Body height 167.6 cm Darien Rusher DPM Work Phone: [facility] 07-15-2024 10:32-0400 Body mass index (BMI) [Ratio] 32.01 kg/m2 Darien Rusher DPM Work Phone: [facility] 07-15-2024 10:32-0400 Body weight 89.95 kg Darien Rusher DPM Work Phone: [facility] 05-28-2024 10:24-0500 Body height 167.6 cm Kunla Ortiz COMMUNITY ACTION WORKER Work Phone: [facility] 05-28-2024 10:24-0500 Body mass index (BMI) [Ratio] 32.01 kg/m2 Kunal Ortiz COMMUNITY ACTION WORKER Work Phone: [facility] 05-28-2024 10:24-0500 Body temperature 96.3 [degF] Kunal Ortiz COMMUNITY ACTION WORKER Work Phone: [facility] 05-28-2024 10:24-0500 Body weight 89.95 kg Kunal Ortiz COMMUNITY ACTION WORKER Work Phone: [facility] 05-28-2024 10:24-0500 Diastolic blood pressure 68 mm[Hg] Kunal Oritz COMMUNITY ACTION WORKER Work Phone: [facility] 05-28-2024 10:24-0500 Heart rate 67 /min Kunal Ortiz COMMUNITY ACTION WORKER Work Phone: [facility] 05-28-2024 10:24-0500 Respiratory rate 16 /min Kunal Ortiz COMMUNITY ACTION WORKER Work Phone: [facility] 05-28-2024 10:24-0500 SaO2% (BldA) [Mass fraction] 95 % Kunal Ortiz COMMUNITY ACTION WORKER Work Phone: [facility] 05-28-2024 10:24-0500 Systolic blood pressure 122 mm[Hg] Kunal Ortiz COMMUNITY ACTION WORKER Work Phone: [facility] 05-01-2024 11:20-0500 Diastolic blood pressure 60 mm[Hg] Kunal Ortiz COMMUNITY ACTION WORKER-C Work Phone: [facility] [place] 05-01-2024 11:20-0500 Heart rate 70 /min Kunal Ortiz COMMUNITY ACTION WORKER-C Work Phone: [facility] [place] 05-01-2024 11:20-0500 Respiratory rate 16 /min Kunal Ortiz COMMUNITY ACTION WORKER-C Work Phone: [facility] [place] 05-01-2024 11:20-0500 SaO2% (BldA) [Mass fraction] 99 % Kunal Ortiz COMMUNITY ACTION WORKER-C Work Phone: [facility] [place] 05-01-2024 11:20-0500 Systolic blood pressure 112 mm[Hg] Kunal Petersonpatrick COMMUNITY ACTION WORKER-C Work Phone: [facility] [place] 05-01-2024 09:46-0500 Body height 167.64 cm Kunal Petersonpatrick COMMUNITY ACTION WORKER-C Work Phone: [facility] [place] 05-01-2024 09:46-0500 Body weight 86.18 kg Kunal Petersonpatrick COMMUNITY ACTION WORKER-C Work Phone: [facility] [place] 04-13-2024 11:28-0500 Body height 167.6 cm Delmilea Jonesholz COMMUNITY ACTION WORKER Work Phone: [facility] 04-13-2024 11:28-0500 Body mass index (BMI) [Ratio] 31.64 kg/m2 Delmi Aichholz COMMUNITY ACTION WORKER Work Phone: [facility] 04-13-2024 11:28-0500 Body temperature 97.59 [degF] Delmi Aichholz COMMUNITY ACTION WORKER Work Phone: [facility] 04-13-2024 11:28-0500 Body weight 88.91 kg Delmi Aichholz COMMUNITY ACTION WORKER Work Phone: [facility] 04-13-2024 11:28-0500 Diastolic blood pressure 78 mm[Hg] Delmi Aichholz COMMUNITY ACTION WORKER Work Phone: [facility] 04-13-2024 11:28-0500 Heart rate 86 /min Delmi Aichholz COMMUNITY ACTION WORKER Work Phone: [facility] 04-13-2024 11:28-0500 Respiratory rate 19 /min Delmi Aichholz COMMUNITY ACTION WORKER Work Phone: [facility] 04-13-2024 11:28-0500 SaO2% (BldA) [Mass fraction] 95 % Delmi Aichholz COMMUNITY ACTION WORKER Work Phone: [facility] 04-13-2024 11:28-0500 Systolic blood pressure 110 mm[Hg] Delmi Love COMMUNITY ACTION WORKER Work Phone: [facility] 02-27-2024 10:36-0500 Body height 167.6 cm Kunal Ortiz COMMUNITY ACTION WORKER Work Phone: [facility] 02-27-2024 10:36-0500 Body mass index (BMI) [Ratio] 31.51 kg/m2 Kunal Ortiz COMMUNITY ACTION WORKER Work Phone: [facility] 02-27-2024 10:36-0500 Body temperature 97.59 [degF] Kunal Ortiz COMMUNITY ACTION WORKER Work Phone: [facility] 02-27-2024 10:36-0500 Body weight 88.54 kg Kunal Ortiz COMMUNITY ACTION WORKER Work Phone: [facility] 02-27-2024 10:36-0500 Diastolic blood pressure 64 mm[Hg] Kunal Ortiz COMMUNITY ACTION WORKER Work Phone: [facility] 02-27-2024 10:36-0500 Heart rate 78 /min Kunal Ortiz COMMUNITY ACTION WORKER Work Phone: [facility] 02-27-2024 10:36-0500 Respiratory rate 16 /min Kunal Ortiz COMMUNITY ACTION WORKER Work Phone: [facility] 02-27-2024 10:36-0500 Systolic blood pressure 128 mm[Hg] Kunal Ortiz COMMUNITY ACTION WORKER Work Phone: [facility] 02-13-2024 13:56-0400 Body height 167.6 cm Ben Roe DPM Work Phone: [facility] 02-13-2024 13:56-0400 Body mass index (BMI) [Ratio] 32.28 kg/m2 Ben Roe DPM Work Phone: [facility] 02-13-2024 13:56-0400 Body weight 90.72 kg Ben Roe DPM Work Phone: [facility] 02-13-2024 13:56-0400 Diastolic blood pressure 80 mm[Hg] Ben Roe DPM Work Phone: [facility] 02-13-2024 13:56-0400 Heart rate 78 /min Ben Roe DPM Work Phone: [facility] 02-13-2024 13:56-0400 Systolic blood pressure 129 mm[Hg] Ben Roe DPM Work Phone: [facility] 12-19-2023 11:36-0400 Body height 167.6 cm Kunal Ortiz COMMUNITY ACTION WORKER Work Phone: [facility] 12-19-2023 11:36-0400 Body mass index (BMI) [Ratio] 31.64 kg/m2 Kunal Ortiz COMMUNITY ACTION WORKER Work Phone: [facility] 12-19-2023 11:36-0400 Body temperature 97.59 [degF] Kunal Ortiz COMMUNITY ACTION WORKER Work Phone: [facility] 12-19-2023 11:36-0400 Body weight 88.91 kg Kunal Ortiz COMMUNITY ACTION WORKER Work Phone: [facility] 12-19-2023 11:36-0400 Diastolic blood pressure 68 mm[Hg] Kunal Ortiz COMMUNITY ACTION WORKER Work Phone: [facility] 12-19-2023 11:36-0400 Heart rate 75 /min Kunal Ortiz COMMUNITY ACTION WORKER Work Phone: [facility] Comment on above: 95% 02 12-19-2023 11:36-0400 Systolic blood pressure 118 mm[Hg] Kunal Ortiz COMMUNITY ACTION WORKER Work Phone: [facility] 11-26-2021 11:15-0400 Body height 167.64 cm Yuliet Perez Other [facility] Other 11-26-2021 11:15-0400 Body mass index (BMI) [Ratio] 30.66 kg/m2 Yuliet Perez Other [facility] Other 11-26-2021 11:15-0400 Body temperature 98 [degF] Yuliet Perez Other [facility] Other 11-26-2021 11:15-0400 Body weight 86.18 kg Yuliet Perez Other [facility] Other 11-26-2021 11:15-0400 Diastolic blood pressure 61 mm[Hg] Yuliet Perez Other [facility] Other 11-26-2021 11:15-0400 SaO2% (BldA) [Mass fraction] 98 % Yuliet Perez Other [facility] Other 11-26-2021 11:15-0400 Systolic blood pressure 117 mm[Hg] Yuliet Perez Other [facility] Other Encounters Encounter Date Encounter Type Care Provider Facility Start: 11-13-2024 End: 11-13-2024 ambulatory GAURAV SCHMITT [facility] Start: 11-10-2024 End: 11-10-2024 Refill Delmi Love [employer] WORKER Work Phone: [facility] Comment on above: Recurrent UTI (urina ry tract infection) (Primary Dx) Start: 11-09-2024 End: 11-09-2024 Office outpatient visit 25 minutes Delmi Love COMMUNITY ACTION WORKER Work Phone: [facility] Comment on above: Recurrent UTI (urina ry tract infection) (Primary Dx); Numbness and tingling of both feet; Spondylosis of cervical spine; Tobacco dependence; Other fatigue; Cigarette nicotine dependence without complication; Lung cancer screening declined by patient Start: 11-09-2024 End: 11-09-2024 ambulatory DELMI LOVE Not Available Start: 11-09-2024 End: 11-09-2024 Bamboo flowsheet Delmi Kate [employer]UNITY ACTION WORKER Work Phone: [facility] Start: 11-09-2024 End: 11-09-2024 Bamboo flowsheet Delmi Kate COMMUNITY ACTION WORKER Work Phone: [facility] Start: 11-09-2024 End: 11-09-2024 Telephone encounter Delmi Kate COMMUNITY ACTION WORKER Work Phone: [facility] Start: 11-04-2024 End: 11-04-2024 Departed Referred Natalee Wang CRYSTAL CALIBRATOR -[facility] Work Phone: Start: 11-04-2024 End: 11-04-2024 ambulatory Kunal Ortiz COMMUNITY ACTION WORKER-C Work Phone: [facility] Work Phone: Start: 11-04-2024 End: 11-04-2024 Patient encounter procedure Natalee Wang CRYSTAL CALIBRATOR -[facility] Work Phone: Start: 11-02-2024 End: 11-02-2024 Refill Delmi Love [employer]UNITY ACTION WORKER Work Phone: [facility] Comment on above: Vitamin D deficiency Start: 11-01-2024 End: 11-01-2024 Clinisync Result Encounter Generic External Data Provider [facility] External Department Unsolicited Start: 11-01-2024 End: 11-01-2024 Clinisync Result Encounter Generic External Data Provider [facility] External Department Unsolicited Start: 10-20-2024 End: 10-20-2024 Clinisync Result Encounter Generic External Data Provider [facility] External Department Unsolicited Start: 10-20-2024 End: 10-20-2024 Clinisync Result Encounter Generic External Data Provider [facility] External Department Unsolicited Start: 10-20-2024 End: 10-20-2024 Telephone encounter Delmi Love COMMUNITY ACTION WORKER Work Phone: [facility] Start: 10-19-2024 End: 10-19-2024 ambulatory GAURAV SCHMITT [facility] Start: 10-14-2024 End: 10-14-2024 ambulatory DARIEN BLANCA Not Available Start: 10-14-2024 End: 10-14-2024 Office outpatient visit 25 minutes Darien Blanca DPM Work Phone: [facility] Comment on above: Neuropathy, idiopath ic (Primary Dx); Peripheral vascular disease; Smoker; Corns and callosities; Left foot pain; Neuritis Start: 10-13-2024 End: 10-13-2024 Patient encounter procedure Jamia Guevara MD Work Phone: [facility] Comment on above: Numbness (Primary Dx ); Paresthesias; Peripheral polyneuropathy Start: 10-13-2024 End: 10-13-2024 ambulatory JAMIA GUEVARA Not Available Start: 09-29-2024 End: 09-29-2024 Orders Only Delmi Love COMMUNITY ACTION WORKER Work Phone: [facility] Comment on above: Numbness and tinglin g of both feet (Primary Dx); Spondylosis of cervical spine; Acquired spondylolisthesis of lumbosacral region Start: 09-28-2024 End: 09-28-2024 ambulatory DELMI LOVE Not Available Start: 09-25-2024 End: 09-25-2024 Telephone encounter Jamia Guevara MD Work Phone: [facility] 111 Start: 09-24-2024 End: 09-24-2024 Office outpatient visit 25 minutes Delmi Love COMMUNITY ACTION WORKER Work Phone: [facility] Comment on above: Numbness and tinglin g of both feet (Primary Dx); Tobacco dependence; Other fatigue; Hypothyroidism, unspecified type ; Lumbar back pain; Neck pain; Other chest pain Start: 09-24-2024 End: 09-24-2024 ambulatory DELMI LOVE Not Available Start: 09-24-2024 End: 09-24-2024 Bamboo flowsheet Delmi Love COMMUNITY ACTION WORKER Work Phone: [facility] Start: 09-24-2024 End: 09-24-2024 Bamboo flowsheet Delmi Kate COMMUNITY ACTION WORKER Work Phone: [facility] Start: 09-14-2024 End: 09-14-2024 Refill Delmi Chrisz COMMUNITY ACTION WORKER Work Phone: [facility] Comment on above: UTI symptoms (Primar y Dx) Start: 09-10-2024 End: 09-10-2024 Departed Referred Yuliet Perez CRYSTAL CALIBRATOR Work Phone: [facility] [place] Work Phone: Start: 09-10-2024 End: 09-10-2024 ambulatory Yuliet Peerz [facility] Work Phone: Start: 09-10-2024 End: 09-10-2024 Patient encounter procedure [facility] Work Phone: Start: 08-26-2024 End: 08-27-2024 Clinisync Result Encounter Delmi Kate COMMUNITY ACTION WORKER Work Phone: [facility] External Department Unsolicited Start: 08-26-2024 End: 08-27-2024 Clinisync Result Encounter Delmi Chrisz COMMUNITY ACTION WORKER Work Phone: [facility] External Department Unsolicited Start: 08-25-2024 End: 08-25-2024 Orders Only Delmi Kate COMMUNITY ACTION WORKER Work Phone: [facility] Comment on above: Vitamin D deficiency (Primary Dx) Start: 08-19-2024 End: 08-19-2024 Refill Delmi Chrisz COMMUNITY ACTION WORKER Work Phone: [facility] Comment on above: Vitamin D deficiency (Primary Dx) Start: 08-18-2024 End: 08-18-2024 ambulatory VENANCIO GANT [facility] Start: 08-18-2024 End: 08-18-2024 Office outpatient new 45 minutes Mike Gant MD Work Phone: [facility] Comment on above: Lower extremity tiara a (Primary Dx); Dyslipidemia Start: 08-17-2024 End: 08-17-2024 Telephone encounter Shelli Francis ABRIL [facility] Start: 08-12-2024 End: 08-12-2024 Bamboo flowsheet Delmi Aichholz COMMUNITY ACTION WORKER Work Phone: [facility] Start: 08-12-2024 End: 08-12-2024 Bamboo flowsheet Delmi Aichholz COMMUNITY ACTION WORKER Work Phone: [facility] Start: 08-12-2024 End: 08-12-2024 Office outpatient visit 25 minutes Delmi Aicfernandoz COMMUNITY ACTION WORKER Work Phone: [facility] Comment on above: Other fatigue (Prima ry Dx); Hypothyroidism, unspecified type (CMS/HCC); Acute otitis externa of left ear, unspecified type; Mixed hyperlipidemia (CMS/HCC); Tobacco dependence; Hyperlipidemia, unspecified hyperlipidemia type (CMS/HCC); Numbness and tingling of both feet; Vitamin D deficiency; Family history of coronary artery disease Start: 08-12-2024 End: 08-12-2024 ambulatory DELMI AICHHOLZ Not Available Start: 08-12-2024 ambulatory [facility] Start: 08-11-2024 End: 08-11-2024 Refill Delmi Aichholz COMMUNITY ACTION WORKER Work Phone: [facility] Comment on above: Hyperlipidemia, unsp ecified hyperlipidemia type (CMS/HCC) Start: 08-05-2024 End: 08-05-2024 Refill Delmi Aichholz COMMUNITY ACTION WORKER Work Phone: [facility] Comment on above: Hypothyroidism, unsp ecified type (CMS/HCC) Start: 07-23-2024 End: 07-24-2024 Refill Delmi Aichholz COMMUNITY ACTION WORKER Work Phone: [facility] Comment on above: Mixed hyperlipidemia (CMS/HCC) Start: 07-21-2024 End: 07-21-2024 Telephone encounter Darien Blanca DPM Work Phone: [facility] Start: 07-20-2024 End: 07-20-2024 ambulatory DARIEN S RUSHER Not Available Start: 07-16-2024 End: 07-17-2024 Telephone encounter Darien Perry Rusher DPM Work Phone: [facility] Comment on above: Advice Only (Rx Frazier ge Request) Start: 07-16-2024 End: 07-16-2024 Office outpatient visit 10 minutes Delmi Love COMMUNITY ACTION WORKER Work Phone: [facility] Comment on above: Acute otitis externa of left ear, unspecified type (Primary Dx); Tobacco dependence Start: 07-16-2024 End: 07-16-2024 ambulatory DELMI LOVE Not Available Start: 07-15-2024 End: 07-15-2024 Bamboo flowsheet Darien S Rusher DPM Work Phone: [facility] Start: 07-15-2024 End: 07-15-2024 Bamboo flowsheet Darien S Rusher DPM Work Phone: [facility] Start: 07-15-2024 End: 07-15-2024 Office outpatient visit 25 minutes Darien S Rusher DPM Work Phone: [facility] Comment on above: Neuropathy, idiopath ic (Primary Dx); Neuritis; Pain in both feet; Peripheral vascular disease (CMS/HCC); Smoker Start: 07-15-2024 End: 07-15-2024 ambulatory DARIEN S RUSHER Not Available Start: 06-07-2024 End: 06-07-2024 Orders Only Delmi Love COMMUNITY ACTION WORKER Work Phone: [facility] Comment on above: Prediabetes (Primary Dx); Mixed hyperlipidemia (CMS/HCC); Tobacco dependence Vitamin D deficiency (Primary Dx) Start: 06-05-2024 End: 06-05-2024 Clinisync Result Encounter Kunal Ortiz COMMUNITY ACTION WORKER Work Phone: [facility] External Department Unsolicited Start: 06-05-2024 End: 06-05-2024 Clinisync Result Encounter Kunal Ortiz COMMUNITY ACTION WORKER Work Phone: [facility] External Department Unsolicited Start: 06-02-2024 End: 06-02-2024 ambulatory [facility] Start: 05-28-2024 End: 05-28-2024 Bamboo flowsheet Kunal Ortiz COMMUNITY ACTION WORKER Work Phone: [facility] Start: 05-28-2024 End: 05-28-2024 Bamboo flowsheet Kunal Ortiz COMMUNITY ACTION WORKER Work Phone: [facility] Start: 05-28-2024 End: 05-28-2024 Office outpatient visit 15 minutes Kunal Ortiz COMMUNITY ACTION WORKER Work Phone: [facility] Comment on [...] Start: 05-01-2024 Non-patient / Non-visit Jessica Ortiz COMMUNITY ACTION WORKER-C Work Phone: [facility] Work Phone: Start: 05-01-2024 End: 05-01-2024 Admission to same day surgery center Kunal Ortiz COMMUNITY ACTION WORKER-C Work Phone: [facility] Work Phone: Start: 05-01-2024 End: 05-01-2024 ambulatory Kunal Ortiz COMMUNITY ACTION WORKER-C Work Phone: [facility] Work Phone: Start: 04-21-2024 End: 04-21-2024 Orders Only Kunal Ortiz COMMUNITY ACTION WORKER Work Phone: [facility] Comment on above: Age-related osteopor osis without current pathological fracture (CMS/HCC) (Primary Dx) Start: 04-13-2024 End: 04-13-2024 Office outpatient visit 15 minutes Delmi Love COMMUNITY ACTION WORKER Work Phone: [facility] Comment on above: Acute non-recurrent maxillary sinusitis (Primary Dx); Tobacco dependence; Acute URI Start: 04-13-2024 End: 04-13-2024 ambulatory DELMI LOVE Not Available Start: 03-26-2024 End: 03-26-2024 Orders Only Kunal Ortiz COMMUNITY ACTION WORKER Work Phone: [facility] Comment on [...] End: 03-19-2024 Clinisync Result Encounter Kunal Ortiz COMMUNITY ACTION WORKER Work Phone: [facility] External Department Unsolicited Start: 03-19-2024 End: 03-19-2024 Clinisync Result Encounter Kunal Ortiz COMMUNITY ACTION WORKER Work Phone: [facility] External Department Unsolicited Start: 02-27-2024 End: 02-27-2024 Bamboo flowsheet Kunal Solorzanok COMMUNITY ACTION WORKER Work Phone: [facility] Start: 02-27-2024 End: 02-27-2024 Bamboo flowsheet Kunal Solorzanok COMMUNITY ACTION WORKER Work Phone: [facility] Start: 02-27-2024 End: 02-27-2024 Patient encounter procedure Kunal Solorzanok COMMUNITY ACTION WORKER Work Phone: [facility] Comment on above: Screening for malign ant neoplasm of colon (Primary Dx); Prediabetes; Encounter for screening mammogram for malignant neoplasm of breast; Encounter for osteoporosis screening in asymptomatic postmenopausal patient; Need for immunization against influenza Start: 02-27-2024 End: 02-27-2024 ambulatory KUNAL SOLORZANOK Not Available Start: 02-24-2024 End: 02-24-2024 Orders Only Kunal Solorzanok COMMUNITY ACTION WORKER Work Phone: [facility] Comment on above: Mixed hyperlipidemia (CMS/HCC) (Primary Dx) Start: 02-18-2024 End: 02-18-2024 Clinisync Result Encounter Kunal Solorzanok COMMUNITY ACTION WORKER Work Phone: [facility] External Department Unsolicited Start: 02-18-2024 End: 02-18-2024 Clinisync Result Encounter Kunal Solorzanok COMMUNITY ACTION WORKER Work Phone: [facility] External Department Unsolicited Start: 02-17-2024 End: 02-17-2024 Refill Kunal Solorzanok COMMUNITY ACTION WORKER Work Phone: [facility] Comment on [...] right Start: 02-11-2024 End: 02-11-2024 Refill Kunal Smithtrick COMMUNITY ACTION WORKER Work Phone: [facility] Comment on above: Hyperlipidemia, unsp ecified hyperlipidemia type (CMS/HCC); Hypothyroidism, unspecified type (CMS/HCC) Start: 01-22-2024 End: 01-22-2024 Clinisync Result Encounter Kunal Ortiz COMMUNITY ACTION WORKER Work Phone: [facility] External Department Unsolicited Start: 01-22-2024 End: 01-22-2024 Clinisync Result Encounter Kunal Ortiz COMMUNITY ACTION WORKER Work Phone: [facility] External Department Unsolicited Start: 12-19-2023 End: 12-19-2023 Bamboo flowsheet Kunal Ortiz COMMUNITY ACTION WORKER Work Phone: [facility] Start: 12-19-2023 End: 12-19-2023 Bamboo flowsheet Kunal Ortiz COMMUNITY ACTION WORKER Work Phone: [facility] Start: 12-19-2023 End: 12-19-2023 Office outpatient visit 15 minutes Kunal Ortiz COMMUNITY ACTION WORKER Work Phone: [facility] Comment on above: Prediabetes (Primary Dx); Hypertriglyceridemia (CMS/HCC); Hypothyroidism, unspecified type (CMS/HCC); Impacted cerumen of left ear Start: 12-19-2023 End: 12-19-2023 ambulatory KUNAL ORTIZ Not Available Start: 12-04-2023 End: 12-04-2023 ambulatory JULIO CESAR [facility] Start: 11-20-2023 End: 11-20-2023 ambulatory KUNAL ORTIZ Not Available Start: 11-18-2023 End: 11-18-2023 ambulatory KUNAL ORTIZ Not Available Start: 05-24-2023 Chart abstracting Cliff castillo PA Work Phone: [facility] Start: 05-24-2023 End: 05-24-2023 Postop follow up visit related to original px Cliff Hong PA Work Phone: [facility] Comment on above: S/P carpal tunnel re lease (Primary Dx); Right hand pain; Arthritis of carpometacarpal (CMC) joint of right thumb Start: 07-03-2022 End: 07-04-2022 ambulatory SHAIKH Lorelei ENGEL Facility:[facility] Start: 03-29-2022 End: 03-30-[address] JOSE DAVID GODWIN Facility:[facility] Start: 02-06-2022 End: 02-07-[address] JOSE DAVID GODWIN Facility:[facility] Start: 11-26-2021 End: 11-26-2021 ambulatory Yuliet Perez Other [facility] Other Start: 11-26-2021 Office outpatient ne w 20 minutes Yuliet Perez [facility] Start: 11-26-2021 End: 11-26-2021 Departed Referred DO Jose David Godwin Work Phone: [facility] [place] Start: 09-13-2021 End: 09-13-2021 Patient encounter procedure DO Jose David Godwin Work Phone: [facility] [address] Procedures Date Procedure Procedure Detail Performing Clinician Start: 11-01-2024 NM UNA PERF SPECT RE ST STR Generic External Data Provider Start: 10-20-2024 ALL LIPID PROFILE (FASTING) Generic External Data Provider Start: 05-29-2025 Urine culture Kunal Solorzanok COMMUNITY ACTION WORKER-C Work Phone: Start: 08-26-2024 ECG 12-LEAD Delmi read COMMUNITY ACTION WORKER Work Phone: Start: 08-26-2024 ALL CBC WITH AUTO DIFF Delmi Love COMMUNITY ACTION WORKER Work Phone: Start: 07-15-2024 End: 07-15-2024 Radex foot complete minimum 3 views Darien Blanca DPM Work Phone: Start: 06-05-2024 CCF CALCIUM Kunal Christian dee COMMUNITY ACTION WORKER Work Phone: Start: 05-25-2024 Computerized ophthal alma [...] DO Work Phone: Start: 05-01-2024 Colonoscopy Kunal Christian dee COMMUNITY ACTION WORKER-C Work Phone: Start: 03-19-2024 MLR HEMOGLOBIN A1C Marian drummond Diana COMMUNITY ACTION WORKER Work Phone: Start: 02-18-2024 ALL LIPID PROFILE (FASTING) Kunal Diana COMMUNITY ACTION WORKER Work Phone: Start: 01-22-2024 TSH W/REFLEX T4 Serjio jonny Ortiz COMMUNITY ACTION WORKER Work Phone: Start: 04-01-2023 Mammography Cliff castillo PA Work Phone: Start: 08-14-2022 Piperacillin/tazobactam Yuliet Perez Other Start: 09-13-2021 CT of thorax with contrast DO Jose David Godwin Work Phone: History of decompres tatum of median nerve S/P carpal tunnel release Cliff ROA Work Phone: Urine culture DO Jose David Ambriz se Work Phone: Plan of Treatment Date Care Activity Detail Author Start: 05-04-2034 Screening for malignant neoplasm of colon [facility] Start: 03-18-2027 Screening for malignant neoplasm of colon [facility] Start: 11-09-2025 Screening for malignant neoplasm of lung Lung Cancer Screening Shared Decision Making [facility] Comment on above: Postponed from 1951 (Patient Refus ed) Start: 10-20-2025 End: 10-20-2025 Patient encounter procedure [facility] Start: 08-18-2025 Adult BMI Screening Adult BMI Screening [facility] Start: 08-18-2025 Tobacco Screening Tobacco Screening [facility] Start: 03-23-2025 End: 03-23-2025 Patient encounter procedure [facility] Start: 02-26-2025 Medicare Annual Wellness (AWV) Medicare Annual Wellness (AWV) [facility] Start: 02-16-2025 End: 02-16-2025 Patient encounter procedure 02/16/2025 1:10 PM EST Office Visit [facility] [address] [place] [address] Mike Gant MD [address] [place] [address] [facility] Start: 02-09-2025 End: 02-09-2025 Patient encounter procedure 02/09/2025 2:00 PM EDT Office Visit [facility] [address] [place] [phone] Delmi Love, JADE [address] [place] [phone] [facility] Start: 01-20-2025 End: 01-20-2025 Patient encounter procedure [facility] NB OPHT Start: 12-14-2024 Influenza vaccination [facility] Start: 11-26-2024 End: 11-26-2024 Patient encounter procedure [facility] Start: 11-23-2024 End: 11-09-2025 Bacteria identified in Urine by Culture Urine culture (clean catch) Microbiology Routine Recurrent UTI (urinary tract infection) Expected: 11/23/2024 (Approximate), Expires: 11/09/2025 [facility] Comment on above: Expected: 11/23/2024 (Approximate), Expi res: 11/09/2025 Start: 11-23-2024 End: 11-09-2025 Urinalysis complete panel - Urine Urinalysis with reflex microscopic (clean catch) Lab Routine Recurrent UTI (urinary tract infection) Expected: 11/23/2024 (Approximate), Expires: 11/09/2025 [facility] Work Phone: Comment on above: Expected: 11/23/2024 (Approximate), Expi res: 11/09/2025 Start: 11-09-2024 End: 11-09-2024 Patient encounter procedure [facility] Comment on above: Numbness and tingling of both feet (Prim ramón Dx); Spondylosis of cervical spine; Tobacco dependence; Other fatigue Start: 11-04-2024 Urine culture [facility] Start: 11-04-2024 Bacteria identified in Urine by Culture Urine Culture [facility] Start: 10-14-2024 End: 10-14-2024 Patient encounter procedure 10/14/2024 10:30 AM EDT Office Visit [facility] [address] [place] [phone] Darien Blanca DPM [address] [place], [place] [phone] [facility] Start: 10-13-2024 End: 10-13-2024 Patient encounter procedure 10/13/2024 12:00 PM EDT Procedure Visit [facility] [address] [place] [address] Jamia Guevara MD [address] [place] [address] [facility] Start: 09-29-2024 End: 09-29-2025 MR Cervical spine WO contrast MR cervical spine wo contrast Imaging Routine Spondylosis of cervical spine Expected: 09/29/2024 (Approximate), Expires: 09/29/2025 [facility] Comment on above: Expected: 09/29/2024 (Approximate), Expi res: 09/29/2025 Start: 09-29-2024 End: 09-29-2025 MR Lumbar spine WO contrast MR lumbar spine wo contrast Imaging Routine Acquired spondylolisthesis of lumbosacral region Expected: 09/29/2024, Expires: 09/29/2025 [facility] Work Phone: Comment on above: Expected: 09/29/2024, Expires: Start: 09-29-2024 End: 09-29-2025 XR Lumbar spine Views W flexion and W extension XR lumbar spine 4+ views w flexion extension Imaging Routine Acquired spondylolisthesis of lumbosacral region Expected: 09/29/2024, Expires: 09/29/2025 [facility] Comment on above: Expected: 09/29/2024, Expires: Start: 09-24-2024 End: 09-24-2024 Patient encounter procedure [facility] Comment on above: Tobacco dependence (Primary Dx); Other fatigue; Hypothyroidism, unspecified type Start: 09-24-2024 End: 09-24-2025 EMG AND NERVE CONDUCTION STUDY EMG AND NERVE CONDUCTION STUDY Neurology Routine Numbness and tingling of both feet Lumbar back pain Expected: 09/24/2024 (Approximate), Expires: 09/24/2025 [facility] Comment on above: Expected: 09/24/2024 (Approximate), Expi res: 09/24/2025 Start: 09-24-2024 End: 09-24-2025 XR Cervical spine 2 or 3 Views XR cervical spine 2 or 3 views Imaging Routine Neck pain Expected: 09/24/2024, Expires: 09/24/2025 [facility] Comment on above: Expected: 09/24/2024, Expires: Start: 09-24-2024 End: 09-24-2025 XR Lumbar spine 2 or 3 Views XR lumbar spine 2 or 3 views Imaging Routine Lumbar back pain Expected: 09/24/2024, Expires: 09/24/2025 [facility] Work Phone: Comment on above: Expected: 09/24/2024, Expires: Start: 09-10-2024 Urine culture [facility] Start: 09-10-2024 Bacteria identified in Urine by Culture Urine Culture [facility] Start: 08-25-2024 End: 08-25-2025 25-hydroxyvitamin D3 [Mass/volume] in Serum or Plasma Vitamin D 25 hydroxy Lab Routine Vitamin D deficiency Expected: 08/25/2024 (Approximate), Expires: 08/25/2025 [facility] Work Phone: Comment on above: Expected: 08/25/2024 (Approximate), Expi res: 08/25/2025 Start: 08-25-2024 End: 08-25-2024 Professional / ancillary services management 08/25/2024 11:30 AM EDT Ancillary Procedure [facility] [address] [place] [phone] [facility] Start: 08-18-2024 End: 08-18-2024 Patient encounter procedure 08/18/2024 3:50 PM EDT Office Visit [facility] [address] [place] [phone] Mike Gant MD [address] [place] [address] [facility] Start: 08-18-2024 End: [...] both feet Expected: 08/12/2024 (Approximate), Expires: 08/12/2025 [facility] Comment on above: Expected: 08/12/2024 (Approximate), Expi res: 08/12/2025 Start: 08-12-2024 End: 08-12-2025 Cobalamin (Vitamin B12) [Mass/volume] in Serum or Plasma Vitamin B12 Lab Routine Other fatigue Numbness and tingling of both feet Expected: 08/12/2024 (Approximate), Expires: 08/12/2025 [facility] Comment on above: Expected: 08/12/2024 (Approximate), Expi res: 08/12/2025 Start: 08-12-2024 End: 08-12-2025 ECG 12 lead ECG 12 lead ECG Routine Tobacco dependence Hyperlipidemia, unspecified hyperlipidemia type (CMS/HCC) Other fatigue Family history of coronary artery disease Expected: 08/12/2024 (Approximate), Expires: 08/12/2025 [facility] Comment on above: Expected: 08/12/2024 (Approximate), Expi res: 08/12/2025 Start: 08-12-2024 End: 08-12-2025 Iron and Iron binding capacity panel - Serum or Plasma Iron level Lab Routine Other fatigue Expected: 08/12/2024 (Approximate), Expires: 08/12/2025 [facility] Comment on above: Expected: 08/12/2024 (Approximate), Expi res: 08/12/2025 Start: 08-12-2024 End: 08-12-2025 Thyrotropin [Units/volume] in Serum or Plasma TSH Lab Routine Hypothyroidism, unspecified type (CMS/HCC) Expected: 08/12/2024 (Approximate), Expires: 08/12/2025 [facility] Work Phone: Comment on above: Expected: 08/12/2024 (Approximate), Expi res: 08/12/2025 Start: 08-12-2024 End: 08-12-2025 Thyroxine (T4) free [Mass/volume] in Serum or Plasma T4, free Lab Routine Hypothyroidism, unspecified type (CMS/HCC) Expected: 08/12/2024 (Approximate), Expires: 08/12/2025 [facility] Comment on above: Expected: 08/12/2024 (Approximate), Expi res: 08/12/2025 Start: 08-12-2024 End: 08-12-2025 Triiodothyronine (T3) Free [Mass/volume] in Serum or Plasma T3, free Lab Routine Hypothyroidism, unspecified type (CMS/HCC) Expected: 08/12/2024 (Approximate), Expires: 08/12/2025 [facility] Comment on above: Expected: 08/12/2024 (Approximate), Expi res: 08/12/2025 Start: 08-12-2024 End: 08-12-2024 Patient encounter procedure [facility] Comment on above: Hypothyroidism, unspecified type (CMS/HC C) (Primary Dx); Acute otitis externa of left ear, unspecified type; Mixed hyperlipidemia (CMS/HCC); Tobacco dependence Start: 07-30-2024 End: 06-07-2025 25-hydroxyvitamin D3 [Mass/volume] in Serum or Plasma Vitamin D 25 hydroxy Lab Routine Vitamin D deficiency Expected: 07/30/2024 (Approximate), Expires: 06/07/2025 [facility] Work Phone: Comment on above: Expected: 07/30/2024 (Approximate), Expi res: 06/07/2025 Start: 07-20-2024 End: 07-20-2024 Professional / ancillary services management 07/20/2024 11:30 AM EDT Ancillary Procedure [facility] [address] [place] [address] [facility] Start: 07-16-2024 End: 07-16-2024 Patient encounter procedure 07/16/2024 11:45 AM EDT Office Visit [facility] [address] [place] [phone] Delmi Love, COMMUNITY ACTION WORKER [address] [place] [phone] [facility] Start: 07-15-2024 End: 07-15-2024 Patient encounter procedure 07/15/2024 10:15 AM EDT Office Visit [facility] [address] [place] [phone] Darien Blanca, DPM [address] [place] [address] Arrived [facility] Comment on above: Arrived Start: 06-07-2024 End: 06-07-2025 CBC W Auto Differential panel - Blood CBC and differential Lab Routine Tobacco dependence Expected: 06/07/2024 (Approximate), Expires: 06/07/2025 [facility] Comment on above: Expected: 06/07/2024 (Approximate), Expi res: 06/07/2025 Start: 06-07-2024 End: 06-07-2025 Comprehensive metabolic 2000 panel - Serum or Plasma Comprehensive metabolic panel Lab Routine Prediabetes Mixed hyperlipidemia (CMS/HCC) Expected: 06/07/2024 (Approximate), Expires: 06/07/2025 [facility] Comment on above: Expected: 06/07/2024 (Approximate), Expi res: 06/07/2025 Start: 06-07-2024 End: 06-07-2025 Microalbumin/Creatinine panel in random Urine Microalbumin / creatinine, urine ratio Lab Routine Prediabetes Expected: 06/07/2024 (Approximate), Expires: 06/07/2025 [facility] Work Phone: Comment on above: Expected: 06/07/2024 (Approximate), Expi res: 06/07/2025 Start: 06-07-2024 End: 06-07-2025 Urinalysis complete panel - Urine Urinalysis with reflex microscopic (clean catch) Lab Routine Prediabetes Expected: 06/07/2024 (Approximate), Expires: 06/07/2025 [facility] Comment on above: Expected: 06/07/2024 (Approximate), Expi res: 06/07/2025 Start: 05-28-2024 End: 05-28-2024 Patient encounter procedure [facility] Comment on above: Arrived Start: 05-25-2024 End: 05-25-2024 Patient encounter procedure [facility] Comment on above: Arrived Start: 05-01-2024 [facility] Start: 04-21-2024 End: 04-21-2025 25-hydroxyvitamin D3 [Mass/volume] in Serum or Plasma Vitamin D 25 hydroxy Lab Routine Age-related osteoporosis without current pathological fracture (CMS/HCC) Expected: 04/21/2024 (Approximate), Expires: 04/21/2025 [facility] Comment on above: Expected: 04/21/2024 (Approximate), Expi res: 04/21/2025 Start: 04-21-2024 End: 04-21-2025 Calcium [Mass/volume] in Serum or Plasma Calcium Lab Routine Age-related osteoporosis without current pathological fracture (CMS/HCC) Expected: 04/21/2024 (Approximate), Expires: 04/21/2025 [facility] Work Phone: Comment on above: Expected: 04/21/2024 (Approximate), Expi res: 04/21/2025 Start: 04-01-2024 Screening for malignant neoplasm of breast Mammogram [facility] Start: 03-23-2024 End: 03-23-2024 Patient encounter procedure 03/23/2024 2:05 PM EST Office Visit [facility] [address] [place] [address] Benjamin Tan MD [address] [place] [address] [facility] Start: 02-27-2024 End: 2025 DBT Breast - bilateral screening Bilateral screening mammogram with tomosynthesis Imaging Routine Encounter for screening mammogram for malignant neoplasm of breast Expected: 02/27/2024, Expires: 2025 [facility] Comment on above: Expected: 02/27/2024, Expires: Start: 02-27-2024 End: 02-26-2025 DXA Skeletal system Views for bone density DEXA bone density Imaging Routine Encounter for osteoporosis screening in asymptomatic postmenopausal patient Expected: 02/27/2024, Expires: 02/26/2025 [facility] Comment on above: Expected: 02/27/2024, Expires: Start: 02-27-2024 End: 02-26-2025 Hemoglobin A1c/Hemoglobin.total in Blood Hemoglobin A1c Lab Routine Prediabetes Expected: 02/27/2024 (Approximate), Expires: 02/26/2025 [facility] Comment on above: Expected: 02/27/2024 (Approximate), Expi res: 02/26/2025 Start: 02-27-2024 End: 02-26-2025 Noninvasive colorectal cancer DNA and occult blood screening [Presence] in Stool Cologuard colon cancer screening Lab Routine Screening for malignant neoplasm of colon Expected: 02/27/2024 (Approximate), Expires: 02/26/2025 [facility] Work Phone: Comment on above: Expected: 02/27/2024 (Approximate), Expi res: 02/26/2025 Start: 02-27-2024 End: 02-27-2024 Patient encounter procedure 02/27/2024 11:00 AM EST Office Visit [facility] [address] [place] [address] Kunal Ortiz, JADE [address] [place] [address] [facility] Start: 02-20-2024 Medicare Annual Wellness (AWV) Medicare Annual Wellness (AWV) [facility] Start: 02-13-2024 End: 02-13-2024 Patient encounter procedure 02/13/2024 1:50 PM EDT Office Visit [facility] [address] [facility] [address] [place] [id number] Ben Roe DPM [address] [facility] [address] [place] [address] [facility] Start: 01-10-2024 Screening for malignant neoplasm of colon Colorectal Cancer Screening [facility] Comment on above: Postponed from 1950 (Other Patient Reasons) Start: 01-02-2024 End: 12-18-2024 TSH W/REFLEX TO FT4 TSH W/REFLEX TO FT4 Lab Routine Hypothyroidism, unspecified type (CMS/HCC) Expected: 01/02/2024 (Approximate), Expires: 12/18/2024 [facility] Work Phone: Comment on above: Expected: 01/02/2024 (Approximate), Expi res: 12/18/2024 Start: 12-19-2023 End: 12-19-2023 Patient encounter procedure 12/19/2023 11:30 AM EDT Office Visit [facility] [address] [place] [phone] Kunal Ortiz NP [address] [place] [phone] Prediabetes (Primary Dx); Hypertriglyceridemia (CMS/HCC); Mixed hyperlipidemia (CMS/HCC) [facility] Comment on above: Prediabetes (Primary Dx); Hypertriglyceridemia (CMS/HCC); Mixed hyperlipidemia (CMS/HCC) Start: 12-15-2023 COVID-19 Vaccine ( season) COVID-19 Vaccine ( season) [facility] Start: 12-15-2023 Influenza vaccination Influenza Vaccine (#1) [facility] Start: 10-11-2023 End: 10-11-2023 Patient encounter procedure 10/11/2023 10:30 AM EDT Office Visit [facility] [address] [facility] [address] [place] [address] Cliff Hong PA [address] [place] [address] [facility] Start: 05-24-2023 End: 05-24-2023 Patient encounter procedure 05/24/2023 10:30 AM EST Office Visit [facility] [address] [facility] [address] [place] [phone] Cliff Hong PA [address] [facility] [address] [place] [address] [facility] Start: 11-13-2022 Adult BMI Screening Adult BMI Screening [facility] Start: 03-25-2022 Screening for malignant neoplasm of colon [facility] Start: 2016 Fall Risk Screening Fall Risk Screening [facility] Start: 2001 Administration of varicella zoster vaccine Zoster (Shingles) Vaccine (1 of 2) [facility] Start: 1970 DTaP,Tdap and Td Vaccines (1 - Tdap) DTaP,Tdap and Td Vaccines (1 - Tdap) [facility] Start: 1969 Adult BMI Follow Up Plan Adult BMI Follow Up Plan [facility] Start: 1963 Depression Screening Depression Screening [facility] Start: 1963 Tobacco Screening Tobacco Screening [facility] Start: 1951 Medicare Annual Wellness (AWV) Medicare Annual Wellness (AWV) [facility] Start: 1951 Screening for malignant neoplasm of colon [facility] Start: 1951 Screening for malignant neoplasm of lung Lung Cancer Screening Shared Decision Making [facility] Start: 1950 Tobacco Counseling Tobacco Counseling [facility] Patient Education Colon polyps H emorrhoids ED Diverticulosis Know your Meds [facility] Work Phone: US.doppler Extremity arteries - bilateral for physiologic artery study at rest and with exercise VASC US PVR/SEGMENTAL PRESSURES LOWER Imaging Routine Peripheral vascular disease (CMS/HCC) Ordered: 07/15/2024 [facility] Work Phone: Comment on above: Ordered: 07/15/2024 XR Hand - right 3 Views XR hand 3+ views right Imaging Routine Right hand pain 05/24/2023 10:32 AM EST [facility] Work Phone: Immunizations Immunization Date Immunization Notes Care Provider Fa [facility] 02-27-2024 influenza, seasonal, injectable, preservative free Kunal Ortiz [employer] Work Phone: [facility] 02-27-2024 influenza virus vaccine, unspecified formulation [facility] 02-13-2023 Influenza, Seasonal, Quadrivalent, Adjuvanted Delmi Aichholz [employer] Work Phone: [facility] 02-13-2023 influenza virus vaccine, unspecified formulation Kunal Ortiz [employer] Work Phone: [facility] 02-07-2022 Influenza, Seasonal, Quadrivalent, Adjuvanted Delmi Aichholz [employer] Work Phone: [facility] 04-11-2021 Influenza, Seasonal, Quadrivalent, Adjuvanted Delmi Aichholz [employer] Work Phone: [facility] 01-13-2020 influenza, injectabl e, quadrivalent, preservative free Delmi Aichholz [employer] Work Phone: [facility] 12-25-2019 influenza, injectabl e, quadrivalent, preservative free Delmi Aichholz [employer] Work Phone: [facility] 01-21-2019 pneumococcal polysaccharide vaccine, 23 valent Delmi Aichholz [employer] Work Phone: [facility] 01-21-2019 Seasonal, quadrivale nt, recombinant, injectable influenza vaccine, preservative free Delmi Aichholz [employer] Work Phone: [facility] 01-28-2018 Seasonal trivalent influenza vaccine, adjuvanted, preservative free Delmi Aichholz [employer] Work Phone: [facility] 03-14-2017 influenza, injectabl e, quadrivalent, preservative free Delmi Aichholz [employer] Work Phone: [facility] 03-14-2017 pneumococcal conjuga te vaccine, 13 valent Delmi Aichholz [employer] Work Phone: [facility] 01-23-2016 seasonal influenza, intradermal, preservative free Delmi Love [employer] Work Phone: [facility] Payers Date Payer Category Payer Self-pay [id number] 2021 Medicare ANTHEM MEDICARE ADVANTAGE ANTHEM MEDICARE ADVANTAGE [id number] 2021-Present [id number] [place], [place] [phone] [id number] 2021 Medicare (Managed Care) [facility] [id number] [id number] 2019 Medicare HMO ANTHEM MEDICARE [id number] 1959 Medicare [id number] 1950 Unknown [id number] 2.16.840.1.556332.3.579. 2.593 1951 Unknown [id number] 2.16.840.1.522923.3.579. 2.593 1951 Unknown [id number] 2.16.840.1.512304.3.579. 2.593 1951 Unknown [id number] 2.16.840.1.799706.3.579. 2.1286 1951 Unknown [id number] 2.16.840.1.545308.3.579. 2.1286 1951 Unknown [id number] 2.16.840.1.883304.3.579. 2.1259 1951 Unknown [id number] 2.16.840.1.680149.3.579. 2.1259 1951 Unknown [id number] 2.16.840.1.000667.3.579. 2.1259 1951 Unknown [id number] 2.16.840.1.477244.3.579. 2.1259 1951 Unknown [id number] 2.16.840.1.824432.3.579. 2.1259 1951 Unknown [id number] 2.16.840.1.544073.3.579. 2.1259 1951 Unknown [id number] 2.16.840.1.934138.3.579. 2.1259 1951 Unknown [id number] 2.16.840.1.404465.3.579. 2.1259 1951 Unknown [id number] 2.16.840.1.119820.3.579. 2.1259 1951 Unknown [id number] 2.16.840.1.602341.3.579. 2.1259 1951 Unknown [id number] 2.16.840.1.090261.3.579. 2.1259 1951 Unknown [id number] 2.16.840.1.943615.3.579. 2.1258 1951 Unknown [id number] 2.16.840.1.510146.3.579. 2.1258 1951 Unknown [id number] 2.16.840.1.362102.3.579. 2.1258 1951 Unknown [id number] 2.16.840.1.770769.3.579. 2.1258 1951 Unknown [id number] 2.16.840.1.359436.3.579. 2.1258 1951 Unknown [id number] 2.16.840.1.680400.3.579. 2.1258 1951 Unknown [id number] 2.16.840.1.171289.3.579. 2.1258 1951 Unknown [id number] 2.16.840.1.376204.3.579. 2.1258 1951 Unknown [id number] 2.16.840.1.357758.3.579. 2.1258 1951 Unknown [id number] 2.16.840.1.879805.3.579. 2.1258 1951 Unknown [id number] 2.16.840.1.436735.3.579. 2.1259 Unknown Oretta BC/BS 1 [id number] Unknown Other1 (STD) [id number] Unknown [id number] 2.16.840.1.279363.3.579. 2.531 Unknown [id number] 2.16.840.1.569055.3.579. 2.531 Unknown [id number] 2.16.840.1.933562.3.579. 2.531 Social History Date Type Detail Facility Tobacco smoking stat us NHIS Unknown if ever smoked [facility] Work Phone: Start: 1950 Sex Assigned At Female [facility] Start: 03-29-2023 End: 11-12-2023 Sex Assigned At [facility] Start: 07-28-1973 End: 11-08-2023 Tobacco smoking status NHIS Smokes tobacco daily [facility] Start: 07-28-1973 History of tobacco use Cigarette Smoker [facility] Start: 11-07-2022 End: 11-08-2023 Tobacco use and exposure Smokeless tobacco non-user [facility] Start: 05-03-2023 End: 11-09-2024 Alcohol intake Lifetime non-drinker (finding) [facility] [...] to any clubs or organizations such as lutheran groups, unions, fraternal [...] Not at all [facility] (I/We) worried nav er (my/our) food would run out before (I/we) got money to buy more. Never true [facility] Start: 05-01-2024 End: 05-01-2024 Tobacco smoking status NHIS Smoker (finding) [facility] Start: 05-01-2024 Sex Patient sex unknown (finding) [facility] How often do you nee d to have someone help you when you read instructions, pamphlets, or other written material from your doctor or pharmacy [SILS] Rarely [facility] Start: 08-11-2024 End: 08-18-2024 Alcoholic beverage intake Current drinker of alcohol (finding) [facility] Start: 05-16-2020 Alcohol Comment occassional [facility] Start: 11-18-2014 End: 09-11-2024 Sex Female (finding) [facility] Start: 06-11-2020 Gender identity Identifies as female gender (finding) [facility] Goals Date Patient Goal Desired Activity /State Clinical Notes 11-26-2021 to 11-13-2024 Delmi Love, JADE - 11/09/2024 6:41 PM Saurabh Love, JADE - 11/09/2024 6:39 PM Saurabh Love, JADE - 11/09/2024 6:37 PM EDTHUMBALISHA STODDARD - 11/09/2024 3:00 PM EDTPatient Instructions Note Date & Type Note Facility 11-13-2024 Note SUBJECTIVE Reason for Visit: Bertha Galarza is a 74 y.o. year old female patient being seen for follow up visit. HPI: Bertha Galarza is a 74 y.o. year old female with significant medical history of abnormal ECG, cancer, and hyperlipidemia previously referred to cardiology for evaluation of RBBB on EKG. 11/13/2024 office visit: Patient was seen in the office today for a follow-up visit. She reports persistent chest discomfort similar to prior episodes - mild in intensity, without clear triggers, and occasionally radiating to the neck and jaw. They occur sometimes once per month or less approximately. She denies lightheadedness, dizziness, palpitations, or lower extremity edema. Recent stress test was negative. Will order coronary CTA due to high risk profile, family history of premature heart disease. 10/19/2024 office visit: Patient was evaluated in [...] Outpatient Medications: Current Outpatient Medications Medication Instructions alpha lipoic acid 200 mg, 2 times daily aspirin 81 mg, Daily RT cholecalciferol (D3-5) 125 mcg, Daily RT levothyroxine (SYNTHROID, LEVOXYL) 75 mcg rosuvastatin (CRESTOR) 40 mg, Daily RT Recent Labs: No visits with results within 2 Month(s) from this visit. Latest known visit with results is: No results found for any previous visit. Most recent labs reviewed, 08/26/2024: WBC 8.1, hemoglobin 14.3, platelets 230 TSH 0.301, free T4 1.17, free T3 2.44, I have personally reviewed and anaylzed the following laboratory results above. These findings have been analyzed in the context of the patient's clinical presentation. Cardiovascular Diagnostic Studies: Stress test 10/30/2024: TTE 11/28/2023: 12 Lead ECG: No results found for this or any previous visit (from the past 4464 hours). I have personally reviewed and analyzed all available cardiac diagnostic tests and imaging reports. Findings have been analyzed in the context of the patient's clinical status. Assessment and Plan #Chest Pain #Dyspnea on Exertion Reports intermittent, mild chest discomfort without clear provocation, occasionally radiating to the neck and jaw. This occurs a few times per month. Though her recent Lexiscan myocardial perfusion imaging (10/30/2024) was unremarkable with no evidence of ischemia, infarction, or transient ischemic dilation - clinical concern remains due to her high-risk profile. She has a lifelong smoking history (1 pack/day since age 23) and a strong family history of premature coronary artery disease (mother with CABG; siblings with coronary stents <60 yo). She also has significant functional limitations from per (more content not included)... [facility] 11-09-2024 History of Present illness Narrative Associated Problem(s): Recurrent UTI (urinary tract infection) Will obtain copy of last weeks culture May need atb change Also repeat urine in 2 weeks with culture order given Associated Problem(s): Lung cancer screening declined by patient Patient meets requirements for low dose CT [...] on the importance of smoking cessation. Smoke: [id number] years, +family hx of lung cancer Declines wanting this completed Associated Problem(s): Other fatigue Does follow cardiology Pt was in urgent care last Saturday for a UTI they had given her macrobid, she states that is the second uti in 6 weeks Nerve test and stress test was done. Would like to discuss both Bertha Galarza is a 74 y.o. female presents with chief complaint of Numbness and tingling of both feet HPI: UTI: urgency, burning, went to urgent care given macrobid 6 days meds still doesn't feel good. No NVD, achy, no fever, Prior to this also been treated about 6 weeks earlier for the same thing No other changes in her sxs, no change in LE sxs either Has cardiology appt this week, had stress test as well SUBJECTIVE: MEDICATIONS: Current Outpatient Medications Medication Instructions Alpha Lipoic Acid 200 mg, Oral, 2 times daily aspirin 81 mg, Oral, Daily B Complex-C (b complex-vitamin c) tablet 1 tablet, Oral, Daily RT cholecalciferol (VITAMIN D-3) 125 mcg, Oral, Daily levothyroxine (SYNTHROID) 75 mcg, Oral, Daily before breakfast nicotine polacrilex (COMMIT) 2 mg, Every 4 hours PRN nitrofurantoin, macrocrystal-monohydrate, (Macrobid) 100 MG capsule TAKE 1 CAPSULE BY MOUTH EVERY 12 HOURS FOR 7 DAYS WITH FOOD rosuvastatin (CRESTOR) 40 mg, Oral, Every evening [...] stool, constipation, diarrhea, nausea and vomiting. Genitourinary: Positive for dysuria and urgency. Negative for difficulty urinating and frequency. Musculoskeletal: Negative for arthralgias, back [...] History: Diagnosis Date Actinic keratosis Cancer (HCC) 285694 Cataract CTS (carpal tunnel syndrome) 09/2022 Disease of thyroid gland 1985 Dry eyes Family history of thyroid problem High cholesterol Hx of breast cancer 2005 Personal history of other medical treatment thyroid Tear of meniscus of knee [id number] Trigger finger [id number] Visual impairment 02/2021 Past Surgical History: Procedure Laterality Date BREAST SURGERY 2006 CARPAL TUNNEL RELEASE Right 04/05/2023 DR FIGUEROA CATARACT EXTRACTION CHOLECYSTECTOMY INTRAOCULAR LENS INSERTION 02/2023 JOINT REPLACEMENT 09/2021 KNEE SURGERY Left 2005 Dr Gr OTHER SURGICAL HISTORY 05/2020 Nodule removed on esophgus PARS PLANA VITRECTOMY W/ EMP STRIPPING Bilateral 2021 R.V.A. TONSILLECTOMY TOTAL KNEE ARTHROPLASTY Left 09/21/2021 DR RG TRIGGER FINGER RELEASE Right 02/07/2021 (R) MF ; DR GR TUBAL LIGATION 1981 family history includes Cancer in her father, sister, and another family member; Diabetes in her mother and sister; Stroke in her mother and sister. OBJECTIVE: Visit Vitals BP 132/76 (BP Location: Left arm, Patient Position: Sitting, BP Cuff Size: Adult long) Pulse 84 Temp 98.5 F (Temporal) Resp 18 Wt 200 lb 6.4 oz LMP (LMP Unknown) SpO2 93% BMI 32.35 kg/m OB Status Postmenopausal Smoking Status Every Day BSA 2.06 m Physical Exam Vitals and nursing note [...] AND PLAN: Follow up in about 3 months (around 02/09/2025) for Recheck. Problem List Items Addressed This Visit RESOLVED: Tobacco dependence Other fatigue Does follow cardiology Numbness and tingling of both feet - Primary EMG: no evidence of radiculopathy noted, +PN Xray spondylithesis, see report MRI was denied Spondylosis of cervical spine Reviewed radiology report Cigarette nicotine dependence without complication The patient has been advised of the risks of continued smoking: stroke, MA, all forms of cancer, lung disease, and . Options for quitting smoking include: cold turkey, hypnosis, acupuncture, nicotine replacement meds (gum, lozenges, and patches), Buproprion, and Varenicline. At this time pt is encouraged to evaluate their goals for wanting to quit smoking, and reach out to provider when ready to start this process Recurrent UTI (urinary tract infection) Relevant Orders Urinalysis with reflex microscopic (clean catch) Urine culture (clean catch) Lung cancer screening declined by patient Patient meets requirements for low dose CT [...] on the importance of smoking cessation. Smoke: [id number] years, +family hx of lung cancer Declines wanting this completed Associated Problem(s): Cigarette nicotine dependence without complication The patient has been advised of the risks of continued smoking: stroke, MA, all forms of cancer, lung disease, and . Options for quitting smoking include: cold turkey, hypnosis, acupuncture, nicotine replacement meds (gum, lozenges, and patches), Buproprion, and Varenicline. At this time pt is encouraged to evaluate their goals for wanting to quit smoking, and reach out to provider when ready to start this process Associated Problem(s): Spondylosis of cervical spine Reviewed radiology report Associated Problem(s): Numbness and tingling of both feet EMG: no evidence of radiculopathy noted, +PN Xray spondylithesis, see report MRI was denied documented in this encounter [facility] 11-09-2024 Telephone encounter Note Please call our community hospital, to see if they have report from her urine culture from last week Also I forgot to ask pt, for further evaluation of fatigue, does she want to do a sleep study for evaluation for sleep apnea?? [place] [facility] 11-09-2024 Miscellaneous Notes Please call our community hospital, to see if they have report from her urine culture from last week Also I forgot to ask pt, for further evaluation of fatigue, does she want to do a sleep study for evaluation for sleep apnea?? LA documented in this encounter [facility] 11-09-2024 Instructions Delmi Love NP - 11/09/2024 3:00 PM EDT Recheck urine sample in 2 weeks, get vit d level at that time as well documented in this encounter [facility] 10-20-2024 Telephone encounter Note Please let pt know that her insurance denied her MRI lumbar spine, she will need to do PT first, does she want to go that route? [place] [facility] 10-20-2024 Miscellaneous Notes Please let pt know that her insurance denied her MRI lumbar spine, she will need to do PT first, does she want to go that route? LA documented in this encounter [facility] 10-19-2024 Note SUBJECTIVE Reason for Visit: Bertha [...] smoker, started wh (more content not included)... [facility] 10-14-2024 History of Present illness Narrative Images [...] had an appt. Yesterday with Neurology at [facility] in [place] (dr. Guevara)SS: 10). HPI Established patient returns to clinic for follow up evaluation of neuropathy. She was unable to afford met next. She has been taking alpha lipoic acid and [id number] vitamin-B complex with some mild improvement. She [...] History: Diagnosis Date Actinic keratosis Cancer (HCC) 073777 Cataract CTS (carpal tunnel syndrome) 09/2022 Disease of thyroid gland 1986 Dry eyes Family history of thyroid problem High cholesterol Hx of breast cancer 2006 Personal history of other medical treatment thyroid Tear of meniscus of knee 023982 Trigger finger [id number] Visual impairment 02/2021 Medications Current Outpatient Medications: [...] Sister Claudia Cancer Other [facility] Stroke Sister Benjamin Melanoma Neg Hx Objective [...] Today I spent over 30 minutes in klql-wz-itrn time discussing with the patient on eating [...] Darien Blanca DPM documented in this encounter [facility] 10-13-2024 History of Present illness Narrative [facility] Patient: Bertha Galarza [address], [address] , Sex: 1950, Female [place], [place] [address] Height: 165 cm Ref Phys: Aichholz fax [...] Doub=doublet; Fasc=fasciculation; FFE=full for effort; Fib=fibrillation; Myokym=myokymia; [place]=myotonic potential; N,0=normal; NR=no response; Polyph=polyphasia; Pos=positive [sharp] wave; RFU=rapidly firing units; Serr=serrated potential (2<phases<5); W&W=waxing and waning pattern INTERPRETATION: This study reveals ENMG evidence of a chronic, neuropathic, axonal, sensory > motor process affecting all lower extremity nerves tested. Needle examination demonstrates a mvaemj-sb-qnhjwfaz gradient that is most suggestive of peripheral [...] plexopathy or radiculopathy. Jamia Guevara M.D. Diplomate, [place] [employer]iat[employer] and Neurology (neurology, epilepsy, sleep medicine) Diplomate, [place] Board of Clinical Neurophysiology Diplomate, [place] Board of Preventive Medicine (clinical informatics) . documented in this encounter [facility] 09-25-2024 Telephone encounter Note Patient scheduled BLE on 10/13/24--no deductible--35.00 co-pay applied--patient is aware. [facility] 09-25-2024 Miscellaneous Notes Patient scheduled BLE on 10/13/24--no deductible--35.00 co-pay applied--patient is aware. documented in this encounter [facility] 09-24-2024 History of Present illness Narrative Associated [...] cholecalciferol (VITAMIN D-3) 125 mcg, Oral, Daily W-Lzmkprttsips-Eglxb-B12-B6 (Metanx) 3-90.314-2-35 MG capsule 3 mg, Oral, [...] History: Diagnosis Date Actinic keratosis Cancer (HCC) 950876 Cataract Dry eyes Family history of thyroid [...] of the risks of continued smoking: stroke, MA, all forms of cancer, lung disease, and [...] of the risks of continued smoking: stroke, MA, all forms of cancer, lung disease, and . Options for quitting smoking include: cold turkey, hypnosis, acupuncture, nicotine replacement meds (gum, lozenges, and patches), Buproprion, and Varenicline. At this time pt is encouraged to evaluate their goals for wanting to quit smoking, and reach out to provider when ready to start this process documented in this encounter [facility] 09-24-2024 Instructions Delmi Love NP - 09/24/2024 3:20 PM EDT Xray both neck and low back EMG: both legs, [facility] Cardiology documented in this encounter [facility] 09-10-2024 Evaluation note Diagnosis Onset Date Resolution Acute cystitis with hematuria noneactive September 10, 2024 2 :08pm Dysuria noneactive November 04 6:24pm [facility] Work Phone: 1(868) 206-105605-29-2025 Evaluation note* Diagnosis Onset Date Resolution Status Admit Date Acute cystitis with hematuria noneac tive September 10, 2024 2:08pm UTI (urinary tract infection) acute November 04, 2024 6:24pm Dysuria noneactive November 04 6:24pm [facility] Work Phone: 1(512) 233-278405-06-2025 History of Present illness Narrative* Mike Gant MD - 08/18/2024 3:50 PM EDT Images from the original note were not included. [facility] Critical access hospital[address] [facility] [address] Subjective: Patient ID: Bertha Galarza is a 74 y.o. female. Chief Complaint Chief Complaint Patient presents with New Patient *3:52 pt called, they were at wrong building on [address], they are making their way to the office now, should be within the 15 minute angela period. Peripheral vascular disease F17.200 (ICD-10-CM) - Smoker History of Present Illness: Thank you for referring patient Bertha Galarza and for your trust in our practice. Bertha Galarza is a 74 y.o. pleasant female with history of DL, current smoker who presents today for consultation at the [facility] [place] due to bilateral feet numbness. Patient reports [...] mg total) by mouth in the morning., Disp:, Rfl: B-complex with vitamin C tablet, Take 1 tablet by mouth in the morning., Disp: , Rfl: cholecalciferol, vitamin D3, (VITAMIN D3) 5,000 units capsule, Take 1 capsule (5,000 Units total) by mouth in the morning., Disp: , Rfl: fluticasone propionate (FLONASE) 50 mcg/actuation nasal spray, Administer 1 spray into each nostrilin the morning., Disp: 15.8 mL, Rfl: 2 levothyroxine (SYNTHROID, LEVOTHROID) 100 MCG tablet, Take 1 tablet (100 mcg total) by mouth in themorning., Disp: , Rfl: omega 8-fcx-yzy-fish oil (Fish OiL) 1,000 (120-180) mg capsule, [...] x 5 days (Patient not taking: Reported on05/23/2021), Disp: 50 mL, Rfl: 0 varenicline (CHANTIX STARTING MONTH BOX) 0.5 mg (11)- 1 mg (42) tablet, Take 0.5 mg one daily on days 1-3 and 0.5 mg twice daily on days 4-7. Then 1 mg twice daily for a total of 12 weeks. 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 Dental disease full dentures Disease of thyroid gland Hyperlipidemia Hypothyroidism Past Surgical History: Procedure Laterality Date BIOPSY LARYNX Bilateral 05/30/2020 Performed by Leobardo Chaudhari MD PhD at [facility] BREAST LUMPECTOMY Left CARPAL TUNNEL RELEASE CATARACT EXTRACTION CHOLECYSTECTOMY INTRAOCULAR LENS INSERTION KNEE ARTHROSCOPY Left 2006 MICROLARYNGOSCOPY DIRECT FROZEN SECION Bilateral 05/30/2020 Performed by Leobardo Chaudhari MD PhD at [facility] OVARIAN CYST REMOVAL TONSILLECTOMY TRIGGER FINGER RELEASE [...] Resource Strain: Low Risk (11/12/2023) Received from [facility] Overall Financial Resource Strain (CARDIA) Difficulty of Paying Living Expenses: Not hard at all Food Insecurity: No Food Insecurity (11/12/2023) Received from [facility] Hunger Vital Sign Worried About Running Out of Food in the Last Year: Never true Ran Out of Food in the Last Year: Never true Transportation Needs: No Transportation Needs (11/12/2023) Received from [facility] PRAPARE - Transportation Lack of Transportation (Medical): No Lack of Transportation (Non-Medical): No Physical Activity: Inactive (11/12/2023) Received from [facility] Exercise Vital Sign Days of Exercise per Week: 0 days Minutes of Exercise per Session: 0 min Stress: No Stress Concern Present (11/12/2023) Received from [facility] [place] of Occupational Health - Occupational Stress Questionnaire Feeling of Stress : Not at all Social Connections: Unknown (11/12/2023) Received from [facility] Social Connection and Isolation Panel [NHANES] Frequency of Communication with Friends and Family: Once a week Frequency of Social Gatherings with Friends and Family: Once a week Attends [employer] Services: Patient declined Active Member of Clubs or Organizations: No Attends Club or Organization Meetings: Never Marital Status: Interpersonal Safety: Not on file Housing Instability: Unknown (11/12/2023) Received from [facility] Housing Stability Vital Sign Unable to Pay for Housing in the Last Year: No Number of Times Moved in the Last Year: Not on file Homeless in the Last Year: No Allergies Allergen Reactions Atorvastatin Penicillins Rash The following portions of the patient's history were reviewed and updated as appropriate: allergies, current medications, past family history, past medical history, past social history, past surgicalhistory and problem list. Review of Systems: Review [...] for your understanding. Mike Gant MD, AKSH[place], [facility], [facility], [place] Interventional Cardiology and Endovascular Interventions [facility] [place] [facility] Miscellaneous Notes* Telephone Encounter - Shelli Francis CMA - 08/17/2024 12:43 PM EDT Called patient to remind them to bring their most current copy of their medication list with them to their appt. Patient verbalizes understanding. [facility] Telephone encounter Note* Telephone Encounter - Shelli Francis CMA - 08/17/2024 12:43 PM EDT Called patient to remind them to bring their most current copy of their medication list with them to their appt. Patient verbalizes understanding. [facility]04-30-[facility] History of Present illness Narrative* Delmi Love NP - 08/12/2024 6:28 PM EDTAssociated Problem(s): Other fatigue Will check labs including thyroid Consideration for cardiac or pulmonary etiology Past EKG RBBB, echo from 2023: EF 50% Will order EKG, may need stress test based on strong family hx of CAD * Delmi Love NP - 08/12/2024 6:27 PM EDTAssociated Problem(s): Vitamin D deficiency Vit d supplement * Delmi Love NP - 08/12/2024 6:26 PM EDTAssociated Problem(s): Numbness and tingling of both feet Check Vit b12 Also is seeing vascular doctor upcoming * ALISHA LIRIANO - 08/12/2024 1:40 PM EDT Pt would like to discuss weight gain and her thyroid medication she states she has been very fatigue in the last couple years Pt takes a B complex otc 2x daily * Delmi Love NP - 08/12/2024 1:40 PM EDT Images from the original note were not included. Bertha Galarza is a 74 y.o. female presents with chief complaint of Follow-up (Left ear pain) HPI: Thyroid : for over 25 years, had a goiter, no surgery, endo started on meds (was in [place]), did not want to travel, then PCP [...] concentrate 2 g, Oral, 2 times daily X-Rcqrmmcdecod-Eaprn-B12-B6 (Metanx) 3-90.314-2-35 MG capsule 3 mg, Oral, [...] Medical History: Diagnosis Date Actinic keratosis Cancer ([facility]) 733777 Cataract Dry eyes Family history of thyroid [...] of the risks of continued smoking: stroke, MA, all forms of cancer, lung disease, and . Options for quitting smoking include: cold turkey, hypnosis, acupuncture, nicotine replacement meds(gum, lozenges, and patches), Buproprion, and Varenicline. At this time pt is encouraged to evaluate their goals for wanting to quit smoking, and reach out toprovider when ready to start this process Relevant [...] artery disease Relevant Orders ECG 12 lead * Delmi Love NP - 08/12/2024 6:54 AM EDTAssociated Problem(s): Tobacco dependence The patient has been advised of the risks of continued smoking: stroke, MA, all forms of cancer, lung disease, and . Options for quitting smoking include: cold turkey, hypnosis, acupuncture, nicotine replacement meds(gum, lozenges, and patches), Buproprion, and Varenicline. At this time pt is encouraged to evaluate their goals for wanting to quit smoking, and reach out toprovider when ready to start this process * Delmi Love NP - 08/12/2024 6:54 AM EDTAssociated Problem(s): Hyperlipidemia (CMS/HCC) Current meds fish oil, and crestor Check labs yearly and prn * Delmi Love NP - 08/12/2024 6:53 AM EDTAssociated Problem(s): Hypothyroid (CMS/HCC) Current medication: levothyroxine Check labs yearly and prn dose change or changes in sxs Unsure if this is the cause of fatigue, will check documented in this [facility]04-30-2025 Instructions* Patient Instructions* Delmi Love NP - 08/12/2024 1:40 PM EDT Check labs Check EKG, may need a stress test documented in this [facility]04-08-2025 Telephone encounter Note* Telephone Encounter - Darien Blanca DPM - 07/21/2024 11:33 AM EDT Reviewed noninvasive arterial studies. There seems to be some very mild disease on the right lower extremity. Based on her symptomatology I recommend following up with vascular to discuss options. Thank you. [place] [id number] Miscellaneous Notes* Telephone Encounter - Darien Blanca DPM - 07/21/2024 11:33 AM EDT Reviewed noninvasive arterial studies. There seems to be some very mild disease on the right lower extremity. Based on her symptomatology I recommend following up with vascular to discuss options. Thank you. documented in this [place] [id number] Telephone encounter Note* Telephone Encounter - Darien Blanca DPM - 07/17/2024 9:40 AM EDT I would recommend that she purchase an tezv-drl-toyjnir vitamin-B complex and I will send a prescription for alpha lipoic acid to her pharmacy. Thank you Victor Hugo. [place] [id number] Miscellaneous Notes* Telephone Encounter - Darien Blanca DPM - 07/17/2024 9:40 AM EDT I would recommend that she purchase an mtsa-woe-udeigzw vitamin-B complex and I will send a prescription for alpha lipoic acid to her pharmacy. Thank you Victor Hugo. * Telephone Encounter - Victor Hugo Martinez - 07/16/2024 8:38 AM EDT Patient called stating that the Rx is too costly and that she would like you to send in the other medications you mentioned at her appointment. documented in this [place] [id number] History of Present illness Narrative* Delmi Love NP - 07/16/2024 12:04 PM EDTAssociated Problem(s): Acute otitis externa of left ear Atb drops Fu in 3 weeks for recheck * ALISHA LIRIANO - 07/16/2024 11:45 AM EDT Pt states she has been feeling under [...] but right ear pops sometimes as well. * Delmi Love NP - 07/16/2024 11:45 AM EDT Images from the original note [...] The current episode started more than 1 monthago. The problem occurs constantly. The problem has been waxing and waning. There has been no fever. Associated symptoms include a sore throat. Pertinent negatives include no abdominal pain, coughing, diarrhea, ear discharge, headaches, rash or vomiting. She has tried nothing for the symptoms. SUBJECTIVE: MEDICATIONS: Current Outpatient Medications Medication Instructions aspirin 81 mg, Daily fish oil concentrate 2 g, Oral, 2 times daily N-Dpvtklonngal-Thubu-B12-B6 (Metanx) 3-90.314-2-35 MG capsule 3 mg, Oral, [...] Medical History: Diagnosis Date Actinic keratosis Cancer ([facility]) 255986 Cataract Dry eyes Family history of thyroid problem High cholesterol ([facility]) Hx of breast cancer 2006 Personal history [...] of the risks of continued smoking: stroke, MA, all forms of cancer, lung disease, and . Options for quitting smoking include: cold turkey, hypnosis, acupuncture, nicotine replacement meds(gum, lozenges, and patches), Buproprion, and Varenicline. At this time pt is encouraged to evaluate their goals for wanting to quit smoking, and reach out toprovider when ready to start this process Acute otitis externa of left ear - Primary Atb drops Fu in 3 weeks for recheck Relevant Medications ofloxacin (Floxin) 0.3 % otic solution * Delmi Love NP - 07/16/2024 6:48 AM EDTAssociated Problem(s): Tobacco dependence The patient has been advised of the risks of continued smoking: stroke, MA, all forms of cancer, lung disease, and . Options for quitting smoking include: cold turkey, hypnosis, acupuncture, nicotine replacement meds(gum, lozenges, and patches), Buproprion, and Varenicline. At this time pt is encouraged to evaluate their goals for wanting to quit smoking, and reach out toprovider when ready to start this process documented in this encounter[place] [id number] Instructions* Patient Instructions* Delmi Love NP - 07/16/2024 11:45 AM EDT Ear drops to left ear documented in this encounterSt. [facility] [id number] Telephone encounter Note* Telephone Encounter - Victor Hugo Martinez - 07/16/2024 8:38 AM EDT Patient called stating that the Rx is too costly and that she would like you to send in the other medications you mentioned at her appointment. [facility] [id number] History of Present illness Narrative* Darien Blanca DPM - 07/15/2024 10:15 AM EDT Images from the original note were not included. Subjective Patient ID: Bertha Galarza is a 74 y.o. 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 Pt states she has trouble walking. RGT pain, 4th digit left foot corn. Pt also relates callus on lateral dorsal foot. And relates pain, numbness with toes, also relates swelling. No recent xrays. Did purchase insoles from the [employer] but states they hurt her feet. SS: 10). HPI This is a new patient who presents to clinic with concern of bilateral foot pain. She describes numbness, burning, tingling sensations that are present at all times. Seems to be worse the more she efraín her feet. She describes a lot of [...] Medical History: Diagnosis Date Actinic keratosis Cancer ([facility]) 162965 Cataract Dry eyes Family history of thyroid problem High cholesterol ([facility]) Hx of breast cancer 2006 Personal history of other medical treatment thyroid Medications Current Outpatient Medications: aspirin 81 MG EC tablet, Take 81 mg by mouth Daily, Disp: , Rfl: fish oil concentrate ([place]-3) 1000 MG capsule, Take 2 capsules (2 g) by mouth in the morning and 2capsules (2 g) before bedtime., Disp: 120 capsule, [...] 1 spray into each nostril in the morning.,Disp: 16 g, Rfl: 3 Y-Mkvykryzwsxa-Dpbdb-B12-B6 (Metanx) 3-90.314-2-35 MG capsule, Take 3 mg [...] forefoot noted. Muscle strength 4/5 for all quadrants.Ankle dorsiflexion 0 degrees with the knee extended, [...] slight increased IM 1-2 angle and very slightlateral deviation of the sesamoid complex. There is slight increase in SEPULVEDA angle. XR foot 3+ views left Imaging Result: AP, medial oblique, lateral views are weight-bearing. No acuteFractures or dislocations. Joints appear well-maintained with the exception of the 1st MTP which has some slight joint space narrowing, periarticular osteophytes very minimally. There is very slight increased IM 1-2 angle and very slightlateral deviation of the sesamoid complex. There is slight increase in SEPULVEDA angle. Assessment/Plan ICD-10-CM 1. Neuropathy, idiopathic G60.9 E-Fsetrrvcyghm-Knojz-B12-B6 (Metanx) 3-90.314-2-35 MG capsule 2. Neuritis M79.2 P-Jopjrwlawdzr-Ibuia-B12-B6 (Metanx) 3-90.314-2-35 MG capsule 3. Pain in both feet M79.671 XR foot 3+ views right M79.672 XR foot 3+ views left 4. Peripheral vascular disease (CMS/[facility]) I73.9 VASC US PVR/SEGMENTAL PRESSURES LOWER 5. Smoker F17.200 Patient examined and evaluated. Three views of bilateral feet taken in office today and I discussedmy findings. She has a fairly benign musculoskeletal [...] any clinical exam findings to suggest lower extremitynerve entrapment. Most notable is her vascular evaluation and I think that she describes some subjec tive symptoms that are concerning for claudication symptoms as well. I think that this is also contributing to the nerve pain as the nerves are likely not getting appropriate nourishment. At this time I recommend that we start with Metanx therapy which will address both the nerve issues and the claudication symptoms that she is experiencing at the distal digits. Prescription was sent to [facility] and she was given a sample pack today to start. Additionally I recommend noninvasive arterial studies giving her smoking history and the subjective concerns that she is describing. This wasordered and sent to [facility].I will review these results and if appropriate refer her to vascular. I would like to see her back in 3 months to follow up on the Metanx therapy. If this is cost prohibitivefor her I have asked her to call our office and we will have her take a vitamin-B complex mfsw-gvy-juzteyt and I will send in a prescription [...] understanding. Darien Blanca DPM documented in this encounterSt. [facility] Medical [id number] NoteCardiology Clinic Note HPI: Bertha Galarza is a [...] concerns. Julio Cesar Borrego MD Interventional Cardiology [facility]02-13-2025 History of Present illness Narrative* Kunal Ortiz NP - 05/28/2024 10:37 AM EST Associated Problem(s): Hypertriglyceridemia (CMS/HCC) Most recent Lipid Panel Triglycerides were still elevated at 313 but a decrease from previous of 430. Pt discussed initiating Fenofibrate with Manager Commercial Sales- he recommended and initiated Aspirin 81mg atthis time; Current Regimen Crestor 40mg; Given hx of Hypothyroidsim and prediabtes will give time to make lifestyle modifications and allow TSH levels to normalize then recheck Lipid Panel in 3 months. If Triglycerides are still elevated will discuss with Cardiology recommendations moving forward. * Kunal Ortiz NP - 05/28/2024 10:36 AM ESTAssociated Problem(s): Prediabetes Most recent labs: hemoglobin A1C 5.9%. Will recheck in 3 months. * Kunal Ortiz NP - 05/28/2024 10:30 AM EST Images from the original note were not [...] Neurological: Negative for dizziness, tremors, syncope, weakness, light- headedness and headaches. Psychiatric/Behavioral: Negative for decreased concentration and suicidal ideas. The patient is notnervous/anxious. Hematological: Does not bruise/bleed easily. Endocrine: Negative [...] of 430. Pt discussed initiating Fenofibrate with Manager Commercial Sales- he recommended and initiated Aspirin 81mg atthis time; Current Regimen Crestor 40mg; Given hx of Hypothyroidsim and prediabtes will give time to make lifestyle modifications and allow TSH levels to normalize then recheck Lipid Panel in 3 months. If Triglycerides are still elevated will discuss with Cardiology recommendations moving forward. Prediabetes - Primary Most recent labs: hemoglobin A1C 5.9%. Will recheck in 3 months. documented in this encounterSt. Joseph Medical [id number] NoteRight Eye Quality was good. Scan locations included subfoveal. Progression has been stable. Findings include normal observations. Left Eye Quality was good. Scan locations included subfoveal. Progression has been stable. Findings include abnormal foveal contour. Notes Good scan with normal appearance right eye (OD)[facility] [id number] History of Present illness Narrative* Dandy Correa DO - 05/25/2024 1:15 PM EST Assessment/Plan Epiretinal membrane (ERM) of both eyes [...] lid scrubs were recommended. documented in this encounterSt. Joseph Medical [id number] [place] [address] Colonoscopy Procedure Report Signed Patient: Bertha Galarza MR#: [id number] : 1950 Acct:[id number] Age/Sex: 74 / F Adm Date: 5 Loc: Room: Type: [facility] Attending Dr: Taiwo Rosa MD Copies to: Kunal Ortiz NP-Verónica Rosa MD~ Colonoscopy Date/Provider 05/01/2024 Taiwo Rosa MD Narrative Procedure: Colonoscopy with polypectomy Indication: This is a 74-year-old female who presents for colonoscopy to evaluate positive Cologuard. Remote colonoscopy reportedly normal. Pre-operative diagnosis: Positive Cologuard, family history of colon cancer Post-operative diagnosis: Colon polyps, moderate diverticular disease, hemorrhoids Sedation: propofol per anesthesia dept O2 oximetry, hemodynamic monitoring was performed pre, during, and post procedure. Patient was identified, H&P completed, patient was given full explanation of the procedure as well as associatedrisks and written consent wasobtained prior to procedure. Patient expressed complete understanding of the procedure as well as alternatives to the procedure and to anesthesia and agreed to proceed with the procedure as indicated. Patient was immediately reassessed prior to IV sedation. Under IV sedation, patient was placed in the left lateral decubitus position. Digital rectal exam was performed and normal. Colonoscope was inserted and passed proximally to the cecum, which was identified by the ileocecal valve, appendiceal orifice and cecal floor. Colonoscope was slowly withdrawnwith the findings as below. [place] bowel prep score was good. Findings: Patient had copious secretions and coughing throughout the procedure with significant respiratory variation due to her smoking history. Otherwise findings as below. Cecum: 6 mm and 3 mm polyps removed with cold snare, bottle 1. Ascending colon: Normal. Hepatic flexure: Normal. Transverse colon: x3 3-6 millimeter polyps removed with cold snare, bottle 2. 10 mm sessile polyp removed with hot snare, bottle 2. Splenic flexure: Normal. Descending colon: 10 mm sessile polyp removed with hot snare, bottle 3. Sigmoid colon: 10 mm semipedunculated polyp removed with hot snare, bottle 4. Moderate-severe diverticular disease. Rectum: Normal. Retroflexed views: Demonstrated hemorrhoids. Biopsy taken: no Complications: None EBL: minimal Recommendations: -We would recommend patient have a repeat colonoscopy in 1 year given her polyp burden and family history. This should be done at a tertiary care main campus she is not appropriate for outpatient or ASC endoscopic evaluation due to her ongoing smoking and lungs. -Follow up pathology -Follow up in the office as needed -Follow up with PCP Following a period of recovery, patient was seen and given full explanation of the procedure. Patient tolerated the procedure well and will be discharged in satisfactory, stable condition. Taiwo Rosa MD Documented By: Taiwo Rosa MD 05/01/24 1022 Signed By: 05/01/24 1050 [facility]01-17-2025 [place] [address] Gastroenterology H&P Signed Patient: Bertha Galarza MR#: [id number] : 1950 Acct:[id number] Age/Sex: 74 / F Adm Date: 5 Loc: Room: Type: [facility] Attending Dr: Taiwo Rosa MD Copies to: LUX Sanford MD~ Date of Service: 05/01/2024 HISTORY & PHYSICAL: Patient's history with special attention to the cardiovascular, pulmonary systems and the current problem was reviewed with the patient immediately prior to the procedure. Present medications and doses reviewed in the EMR. Allergies and pertinent laboratory tests were also re viewedat this time in the EMR. The physical [...] Taiwo Rosa MD 05/01/24 1021 Signed By: 05/01/24 1022 [facility]12-30-2024 History of Present illness Narrative * Delmi Love NP - 04/13/2024 12:05 PM ESTAssociated Problem(s): Tobacco dependence The patient has been advised of the risks of continued smoking: stroke, MA, all forms of cancer, lung disease, and . Options for quitting smoking include: cold turkey, hypnosis, acupuncture, nicotine replacement meds(gum, lozenges, and patches), Buproprion, and Varenicline. At this time pt is encouraged to evaluate their goals for wanting to quit smoking, and reach out toprovider when ready to start this process * Delmi Love NP - 04/13/2024 12:04 PM ESTAssociated Problem(s): Acute non- recurrent maxillary sinusitis Doxycycline 100mg twice daily for 10 days Fu if not better * Delmi Love NP - 04/13/2024 12:02 PM ESTAssociated Problem(s): Acute URI Differential dx: virus, COVID, Flu, RSV Fluids, steroids, and albuterol inhaler Tylenol as needed fever * ALISHA LIRIANO - 04/13/2024 11:30 AM EST Pt started having s/s on night with body aches/pains, chills, headache. Pt states it has progressed to having left ear plugged, tired and itchy eyes, watery eyes, scratchy throat, runny nose, cough with no mucus, no chest pain, sob only when she over exhausts she does smoke, very fatigue. Fever high as 101 on Saturday. Pt has been taking tylenol and mucinex * Delmi Love NP - 04/13/2024 11:30 AM EST Images from the original note were not [...] Medical History: Diagnosis Date Actinic keratosis Cancer ([facility]) 815026 Cataract Dry eyes Family history of thyroid problem High cholesterol ([facility]) Hx of breast cancer 2006 Personal history [...] of the risks of continued smoking: stroke, MA, all forms of cancer, lung disease, and . Options for quitting smoking include: cold turkey, hypnosis, acupuncture, nicotine replacement meds(gum, lozenges, and patches), Buproprion, and Varenicline. At this time pt is encouraged to evaluate their goals for wanting to quit smoking, and reach out toprovider when ready to start this process Acute URI Differential dx: virus, COVID, Flu, RSV Fluids, steroids, and albuterol inhaler Tylenol as needed fever Relevant Medications predniSONE (Deltasone) 20 MG tablet albuterol HFA 90 mcg/act inhaler Acute non-recurrent maxillary sinusitis - Primary Doxycycline 100mg twice daily for 10 days Fu if not better Relevant Medications doxycycline (Vibra-Tabs) 100 MG tablet documented in this encounterSt. Joseph Medical [id number] Instructions* Patient Instructions* Delmi Love NP - 04/13/2024 11:30 AM EST Fluids, rest, atb, steroids, and inhaler If not better contact office documented in this encounterSt. Joseph Medical CenterFndcvltmzt78-36-1213 History of Present illness Narrative* Benjamin Tan MD - 03/23/2024 2:05 PM EST Skin Check Location: Patient requests a skin [...] Hands Examined Digits,nails: Examined Patient wearing nail togolese, Denies dark streaks under finger nails Lymphatics: [...] benign pigmented lesions that occur on sun-exposed andsun-damaged skin. No treatment is necessary. Recommended regular use of broad spectrum sunscreen SPF 30 or higher 4. Angioma of skin (2) Left Arm, Right Arm Scattered blunt-red papule(s). The patient was informed that angiomas are benign growths on the the skin. No treatment is necessary. Next Visit: 1 year skin exam documented in this encounterSt. Joseph Medical [id number] History of Present illness Narrative* Kunal Ortiz, JADE - 02/27/2024 11:00 AM EST Images from the original note were not included. Subjective : Chief Complaint: Bertha Galarza is an 73 y.o. female here for an annual wellness visit. I have reviewed and reconciled the history and medication list with the patient today. Current Outpatient Medications Medication Sig Dispense Refill aspirin 81 MG EC tablet Take 81 mg by mouth Daily fish oil concentrate ([place]-3) 1000 MG capsule Take 2 capsules (2 g) by mouth in the morning and 2 capsules (2 g) before bedtime. 120 capsule 2 fluticasone (Flonase) 50 MCG/ACT nasal spray Administer 1 spray into affected nostril(s) in the morning. levothyroxine (Synthroid) 75 MCG tablet Take 1 tablet (75 mcg) by mouth in the morning. Take beforemeals. 30 tablet 2 rosuvastatin (Crestor) 40 MG [...] Neurological: Negative for dizziness, tremors, syncope, weakness, light- headedness and headaches. Psychiatric/Behavioral: Negative for decreased concentration and suicidal ideas. The patient is notnervous/anxious. Hematological: Does not bruise/bleed easily. Endocrine: Negative [...] Do you have a medical power of transactional attorney?: No Objective : BP 128/64 Pulse [...] on February 27, 2024 documented in this encounterSt. Joseph Medical CenterKqwyrpfkas58-85-1091 History of Present illness Narrative* Ben Roe, TOSHAM - 02/13/2024 1:50 PM EDT Patient: Bertha Galarza : 1950 PCP: Moustapha [...] Medical History: Diagnosis Date Actinic keratosis Cancer ([facility]) 569816 Cataract Dry eyes Family history of thyroid problem High cholesterol ([facility]) Hx of breast cancer 2006 Personal history [...] min Stress: No Stress Concern Present (11/12/2023) [place] [employer] - Occupational Stress Questionnaire Feeling of Stress : Not at all Social Connections: Unknown (11/12/2023) Social Connection and Isolation Panel [NHANES] Frequency of Communication with Friends and Family: Once a week Frequency of Social Gatherings with Friends and Family: Once a week Attends [employer] Services: Patient declined Active Member of Clubs [...] patient today and discussed conservative treatments and possibleexcisional biopsy of lesion in the future for pathological diagnosis of specimen. Patient may take yelf-jbd-onoxvaf NSAID p.r.n. for pain Application of salinocaine acid medication to lesion/lesions located at right foot Informed pt of risks and benefits of procedure including high reoccurence rate, infection, pain andconsent given. Application of DSD post procedure. Patient to continue with oral anti - inflammatories as needed for pain and recommended OTC medications such as tylenol or Ibuprofen Discussed accommodative custom inserts and ixf-hc-acrlgv cost has not covered by insurance patient may consider in the future but did recommend xceo-iwp-asczgnx inserts at this time Ben Roe DPM documented in this encounterNOMS [id number] History of Present illness Narrative* Kuanl Ortiz NP - 12/19/2023 11:57 AM EDTAssociated Problem(s): Prediabetes Dietary tips and recommendations given. Continue to implement lifestyle and dietary modifications. Recheck A1C in February. * Kunal Ortiz NP - 12/19/2023 11:52 AM EDTAssociated Problem(s): Hypertriglyceridemia (CMS/HCC) Most recent Lipid Panel Triglycerides were still elevated at 430 Pt discussed initiating Fenofibrate with Manager Commercial Sales- he recommended and initiated Aspirin 81mg atthis time; Current Regimen Crestor 40mg; Given hx of Hypothyroidsim and prediabtes will give time to make lifestyle modifications and allow TSH levels to normalize then recheck Lipid Panel in 3 months. If Triglycerides are still elevated will discuss with Cardiology recommendations moving forward. * Kunal Ortiz NP - 12/19/2023 11:51 AM EDTAssociated Problem(s): Hypothyroid (CMS/HCC) TSH low- decreased levothyroxine to 75mcg. Recheck TSH in 2 weeks. * Kunal Ortiz NP - 12/19/2023 11:30 AM EDT Images from the original note [...] Neurological: Negative for dizziness, tremors, syncope, weakness, light- headedness and headaches. Psychiatric/Behavioral: Negative for decreased concentration and suicidal ideas. The patient is notnervous/anxious. Hematological: Does not bruise/bleed easily. Endocrine: Negative [...] at 430 Pt discussed initiating Fenofibrate with Manager Commercial Sales- he recommended and initiated Aspirin 81mg atthis time; Current Regimen Crestor 40mg; Given hx [...] scan with next mammogram. documented in this encounterSt. Joseph Medical [id number] Instructions* Patient Instructions* Kunal Ortiz NP - 12/19/2023 11:30 AM [...] to include 150 minutes per week of moderate- intensity, and 75 minutes per week of vigorous aerobic activity. documented in this encounterSt. Joseph Medical CenterByxprmezai82-08-8299 NoteCardiology Clinic Note Chief Complaint: Pt is here [...] concerns. Julio Cesar Borrego MD Interventional Cardiology [facility]02-09-2024 History of Present illness Narrative* JANINA Jackson - 05/24/2023 10:30 AM EST Images from the original note were not included. HISTORY OF PRESENT ILLNESS: POST OP PT Bertha Galarza is an 73 y.o. @ female. No surgery found s/p surgery onNo surgery found (EST PT) S/P (R) CTR 04/05/23 (7WKS)- DOING BETTER- NOTES SOME DISCOMFORT- SOME N/T RT THUMB/IF/MF;MOST HS- NOTES SWELLING IN THE AM-+TYLENOL/IBUPROFEN XRAY [...] is normal. Strength additional comments: 5/5 EQUAL PLUMBERS AND TOP HELPERS STRENGTH Neurovascular Right Right neurovascular exam is [...] ago. Patient will call if thumb pain versusfor possible injection with surgical and nonsurgical treatment options discussed. Questions answered in laymen terms at the bedside. The diagnosis, home exercise plan and any ongoing restrictions/ recommendations reviewed. If unable to be reached in office, I recommend evaluation at nearest Emergency Room if any symptoms worsened or new symptoms develop for requiring urgent evaluation. JANINA Jackson documented in this encounterSt. Joseph Medical [id number] Evaluation note* Encounter Date Diagnosis Assessment Notes Treatment Notes Treatment Clinical Notes Nov, Dysuria (ICD-10 - R30.0) Nov, [...] understanding and is agreeable to treatment plan MYFLY Other Evaluation noteNo assessment information available [facility] Work Phone: Evaluation note* Diagnosis S/P carpal tunnel release- Primary Other postprocedural status Right hand pain Pain in soft tissues of limb Arthritis of carpometacarpal (CMC) joint of right thumb documented in this encounter [facility] HealthcareEvaluation note* Diagnosis Hypertriglyceridemia (CMS/HCC)- Primary [...] tissues of limb documented in this encounter [facility] HealthcareEvaluation note* Diagnosis Hypertriglyceridemia (CMS/HCC)- Primary [...] ischemic heart disease documented in this encounter [facility] HealthcareEvaluation note* Diagnosis Lower extremity edema- Primary Edema Dyslipidemia Other and unspecified hyperlipidemia [facility] Diagnosis Hypertriglyceridemia (CMS/HCC)- Primary Pure [...] D deficiency- Primary documented in this encounter [facility] [...] and radiculitis documented in this encounter [facility]* [...] Lumbago Neck pain Cervicalgia Other chest pain Vitamin D deficiency documented in this encounter [facility]* Diagnosis Hypertriglyceridemia- Primary Pure hyperglyceridemia Bilateral posterior capsular opacification Unspecified after-cataract Hollenhorst plaque, 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 Mixed hyperlipidemia Mixed hyperlipidemia Short of breath on exertion Chest heaviness Other chest pain Prediabetes- Primary Other abnormal glucose Hypertriglyceridemia Pure hyperglyceridemia Hypothyroidism, unspecified type Impacted cerumen of left ear Impacted cerumen Prediabetes- Primary Other abnormal glucose Hypertriglyceridemia Pure hyperglyceridemia Other fatigue- Primary Hypothyroidism, unspecified type Acute [...] Lumbago Neck pain Cervicalgia Other chest pain Recurrent UTI (urinary tract infection)- Primary Numbness and tingling of both feet Spondylosis of cervical spine Tobacco dependence Tobacco use disorder Other fatigue Cigarette nicotine dependence without complication Lung cancer screening declined by patient documented in this encounter [facility]* Diagnosis Hypertriglyceridemia- Primary Pure hyperglyceridemia Bilateral posterior capsular opacification Unspecified after-cataract Hollenhorst plaque, 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 Mixed hyperlipidemia Mixed hyperlipidemia Short of breath on exertion Chest heaviness Other chest pain Prediabetes- Primary Other abnormal glucose Hypertriglyceridemia Pure hyperglyceridemia Hypothyroidism, unspecified type Impacted cerumen of left ear Impacted cerumen Prediabetes- Primary Other abnormal glucose Hypertriglyceridemia Pure hyperglyceridemia Other fatigue- Primary Hypothyroidism, unspecified type Acute [...] Lumbago Neck pain Cervicalgia Other chest pain Recurrent UTI (urinary tract infection)- Primary Numbness and tingling of both feet Spondylosis of cervical spine Tobacco dependence Tobacco use disorder Other fatigue Cigarette nicotine dependence without complication Lung cancer screening declined by patient Recurrent UTI (urinary tract infection)- Primary documented in this encounter [facility] HealthcareHistory and physical note Author Taiwo Rosa [facility] Note Date/Time May 01, 2024 1 0:22am [facility] [address] [place] [address] Gastroenterology H&P Signed Patient: Bertha Galarza MR#: [id number] : 1950 Acct:[id number] Age/Sex: 74 / F Adm Date: 5 Loc: Room: Type: [facility] Attending Dr: Taiwo Rosa MD Copies to: [...] signed by Taiwo Rosa MD> 05/01/24 1022 [facility] Work Phone: History general Narrative - Reported* Type Description Date Medical History Hypothyroid Medical History Hypercholesterolemia Medical History Breast cancer Surgical History colonoscopy Surgical History cholecystectomy Surgical History knee arthroscopy Surgical History tonsillectomy and adenoidectomy Surgical History wisdom teeth Surgical History laparoscopy Surgical History tubal ligation Surgical History biopsy Surgical History left knee replacement 10/04 Hospitalization History see above MYFLY Other InstructionsNot on filedocumented in this encounter [facility] SystemInstructionsNot on filedocumented in this encounter [facility] SystemInstructions* Attachments The following attachments cannot be sent through Care Everywhere. * Quitting smoking for adults ([place]ic) documented in this encounterProGreil Memorial Psychiatric Hospital Health SystemReason for referral (narrative)No reason for referral information availableMercy Health – [facility] Work Phone: Reason for visit Narrative* Other Medical (Routine) - Closed Specialty Diagnoses / Procedures Referred By Jorge Luis t Referred To Contact Neurology Diagnoses Numbness and tingling of both feet Lumbar back pain Procedures EMG AND NERVE CONDUCTION STUDY Delmi Love, JADE [address] [place] [address] Phone: tel: fax: Jamia Guevara MD [address] [place] [address] Phone: tel: fax: Referral ID Status Reason Start Date Expiration Date Visits Re quested Visits Authorized [id number] Closed 09/24/2024 03/23/2025 1 1 [facility] Chief Complaint and Reason for Visit Chief Complaint lung mass Chief Complaint R30.0 Chief Complaint Admit Date positive cologuard May 01, 2024 9 :29am positive cologuard May 01, 2024 1 0:21am Chief Complaint Admit Date Dysuria September 10, 2024 2:08p m Chief Complaint Admit Date Dysuria September 10, 2024 2:08p m R30.0 September 10, 2024 2:13p m Poss uti November 04, 2024 6:24 pm Reason for Visit Admit Date Acute cystitis with hematuria September 10, 2024 2:08pm Dysuria November 04, 2024 6:24 pm Reason for Visit Admit Date Acute cystitis with hematuria September 10, 2024 2:08pm UTI (urinary tract infection) November 04, 2024 6:24pm Dysuria November 04, 2024 6:24 pm Advance Directives No Advanced Directives Records Found [...] Godwin DO Primary Care Provider, Attending Stanislav spangler Active Trixie Gr Jr, DO Other Provider Active Team Status: Active Member Role Status Dates Jose David Godwin DO Primary Care Provider Active Team Status: Inactive Member Role Status Dates Jose David Godwin DO Primary Care Provider Active Yuliet Perez APRN Attending Provider Active Tender Labor Relationship Specialty Start Date End Date Jose David Godwin MD [address] [place] [address] PCP - General Family Medicine 10/11/22 Tender Labor Relationship Specialty Start Date End Date Jose David Godwin MD [address] [place] [address] PCP - General Family Medicine 10/11/22 Tender Labor Relationship Specialty Start Date End Date Moustapha De Leon MD [address] [place] [address] PCP - General Family Medicine 11/08/23 Stephanie Peters OD [facility] [place] [address] Referring Physician Optometry 11/08/23 Kunal Ortiz NP [address] [facility] [place] [phone] Nurse Practitioner Family Medicine 11/13/23 Tender Labor Relationship Specialty Start Date End Date Moustapha De Leon MD [address] [place] [address] PCP - General Family Medicine 11/08/23 Stephanie Peters OD [address] [place] [address] Referring Physician Optometry 11/08/23 Kunal Ortiz NP [address] [place] [address] Nurse Practitioner Family Medicine 11/13/23 Tender Labor Relationship Specialty Start Date End Date Moustapha De Leon MD [address] [place] [address] PCP - General Family Medicine 11/08/23 Stephanie Peters OD [address] [place] [address] Referring Physician Optometry 11/08/23 Kunal Ortiz NP [address] [place] [address] Nurse Practitioner Family Medicine 11/13/23 Tender Labor Relationship Specialty Start Date End Date Moustapah De Leon MD [address] [place] [address] PCP - General Family Medicine 11/08/23 Stephanie Peters OD [address] [facility] [place] [address] Referring Physician Optometry 11/08/23 Kunal Ortiz NP [address] [place] [address] Nurse Practitioner Family Medicine 11/13/23 Tender Labor Relationship Specialty Start Date End Date Moustapha De Leon MD [address] [place] [address] PCP - General Family Medicine 11/08/23 Stephanie Peters OD [address] [place] [address] Referring Physician Optometry 11/08/23 Kunal Ortiz NP [address] [place] [address] Nurse Practitioner Family Medicine 11/13/23 Tender Labor Relationship Specialty Start Date End Date Moustapha De Leon MD [address] [place] [address] PCP - General Family Medicine 11/08/23 Stephanie Peters, OD [address] [place] [address] Referring Physician Optometry 11/08/23 Kunal Ortiz NP [address] [place] [address] Nurse Practitioner Family Medicine 11/13/23 Tender Labor Relationship Specialty Start Date End Date Moustapha De Leon MD [address] [place] [address] PCP - General Family Medicine 11/08/23 Stephanie Peters, OD [address] [facility] [place] [address] Referring Physician Optometry 11/08/23 Kunal Ortiz NP [address] [place] [address] Nurse Practitioner Family Medicine 11/13/23 Tender Labor Relationship Specialty Start Date End Date Moustapha De Leon MD [address] [place] [address] PCP - General Family Medicine 11/08/23 Stephanie Peters, OD [address] [facility] [place] [address] Referring Physician Optometry 11/08/23 Kunal Ortiz NP [address] [place] [address] Nurse Practitioner Family Medicine 11/13/23 Tender Labor Relationship Specialty Start Date End Date Moustapha De Leon MD [address] [place] [address] PCP - General Family Medicine 11/08/23 Stephanie Peters OD [address] [facility] [place] [address] Referring Physician Optometry 11/08/23 Kunal Ortiz NP [address] [place] [address] Nurse Practitioner Family Medicine 11/13/23 Tender Labor Relationship Specialty Start Date End Date Moustapha De Leon MD [address] [place] [address] PCP - General Family Medicine 11/08/23 Stephanie Peters, OD [address] [facility] [place] [address] Referring Physician Optometry 11/08/23 Kunal Ortiz NP [address] [place] [address] Nurse Practitioner Family Medicine 11/13/23 Tender Labor Relationship Specialty Start Date End Date Moustapha De Leon MD [address] [place] [address] PCP - General Family Medicine 11/08/23 Stephanie Peters OD [address] [place] [place] [address] Referring Physician Optometry 11/08/23 Kunal Ortiz NP [address] [place] [address] Nurse Practitioner Family Medicine 11/13/23 Tender Labor Relationship Specialty Start Date End Date Moustapha De Leon MD [address] [place] [address] PCP - General Family Medicine 11/08/23 Stephanie Peters, OD [address] [place] [address] Referring Physician Optometry 11/08/23 Kunal Ortiz NP [address] [place] [address] Nurse Practitioner Family Medicine 11/13/23 Tender Labor Relationship Specialty Start Date End Date Moustapha De Leon MD [address] [place] [address] PCP - General Family Medicine 11/08/23 Stephanie Peters OD [address] [facility] [place] [address] Referring Physician Optometry 11/08/23 Kunal Ortiz NP [address] [place] [address] Nurse Practitioner Family Medicine 11/13/23 Tender Labor Relationship Specialty Start Date End Date Moustapha De Leon MD [address] [place] [address] PCP - General Family Medicine 11/08/23 Stephanie Peters, OD [address] [place] [address] Referring Physician Optometry 11/08/23 Kunal Ortiz NP [address] [place] [phone] Nurse Practitioner Family Medicine 11/13/23 Team Status: Active Member Role Status Dates LUX Sanford Primary Care Provider Ac tive Team Status: Inactive Member Role Status Dates Taiwo Rosa MD Attending Provider Active S tart: May 01, 2024 End: May 01, 2024 LUX Sanford Primary Care Provider Ac tive Start: May 01, 2024 End: May 01, 2024 Team Status: Active Member Role Status Dates Taiow Rosa MD Attending Provider, Other Provider Active Start: May 01, 2024 Kunal N Ortiz , COMMUNITY ACTION WORKER-C Primary Care Provider Active Start: April Tender Labor Relationship Specialty Start Date End Date Moustapha De Leon MD [address] [place] [address] PCP - General Family Medicine 11/08/23 Stephanie Peters OD [address] [place] [address] Referring Physician Optometry 11/08/23 Kunal Ortiz NP [address] [place] [address] Nurse Practitioner Family Medicine 11/13/23 Tender Labor Relationship Specialty Start Date End Date Moustapha De Leon MD [address] [place] [address] PCP - General Family Medicine 11/08/23 Stephanie Peters OD [address] [place] [address] Referring Physician Optometry 11/08/23 Kunal Ortiz NP [address] [place] [address] Nurse Practitioner Family Medicine 11/13/23 Tender Labor Relationship Specialty Start Date End Date Moustapha De Leon MD [address] [place] [address] PCP - General Family Medicine 11/08/23 Stephanie Peters OD [address] [place] [address] Referring Physician Optometry 11/08/23 Kunal Ortiz NP [address] [place] [address] Nurse Practitioner Family Medicine 11/13/23 Tender Labor Relationship Specialty Start Date End Date Moustpaha De Leon MD [address] [place] [address] PCP - General Family Medicine 11/08/23 Stephanie Peters, OD [address] [place] [address] Referring Physician Optometry 11/08/23 Kunal Ortiz NP [address] [place] [address] Nurse Practitioner Family Medicine 11/13/23 Tender Labor Relationship Specialty Start Date End Date Moustapha De Leon MD [address] [place] [address] PCP - General Family Medicine 11/08/23 Stephanie Peters, OD [address] [place] [address] Referring Physician Optometry 11/08/23 Kunal Ortiz NP [address] [place] [address] Nurse Practitioner Family Medicine 11/13/23 Tender Labor Relationship Specialty Start Date End Date Moustapha De Leon MD [address] [place] [address] PCP - General Family Medicine 11/08/23 Stephanie Peters, OD [address] [place] [address] Referring Physician Optometry 11/08/23 Kunal Ortiz, JADE [address] [place] [address] Nurse Practitioner Family Medicine 11/13/23 Tender Labor Relationship Specialty Start Date End Date Moustapha De Leon MD [address] [place] [address] PCP - General Family Medicine 11/08/23 Stephanie Peters, OD [address] [facility] [place] [address] Referring Physician Optometry 11/08/23 Kunal Ortiz, JADE [address] [place] [address] Nurse Practitioner Family Medicine 11/13/23 Tender Labor Relationship Specialty Start Date End Date Moustapha De Leon MD [address] [place] [address] PCP - General Family Medicine 11/08/23 Stephanie Peters, OD [address] [place] [address] Referring Physician Optometry 11/08/23 Tender Labor Relationship Specialty Start Date End Date Moustapha De Leon MD [address] [place] [address] PCP - General Family Medicine 11/08/23 Stephanie Peters, OD [address] [place] [address] Referring Physician Optometry 11/08/23 Delmi Love NP [address] [place] [address] Nurse Practitioner Family Medicine 07/15/24 Tender Labor Relationship Specialty Start Date End Date Moustapha De Leon MD [address] [place] [address] PCP - General Family Medicine 11/08/23 Stephanie Peters, OD [address] [place] [address] Referring Physician Optometry 11/08/23 Delmi Love NP [address] [place] [address] Nurse Practitioner Family Medicine 07/15/24 Tender Labor Relationship Specialty Start Date End Date Moustapha De Leon MD [address] [place] [address] PCP - General Family Medicine 11/08/23 Stephanie Peters, OD [address] [place] [address] Referring Physician Optometry 11/08/23 Delmi Love NP [address] [place] [address] Nurse Practitioner Family Medicine 07/15/24 Tender Labor Relationship Specialty Start Date End Date Moustapha De Leon MD [address] [place] [address] PCP - General Family Medicine 11/08/23 Stephanie Peters, OD [address] [place] [address] Referring Physician Optometry 11/08/23 Delmi Love NP [address] [place] [address] Nurse Practitioner Family Medicine 07/15/24 Tender Labor Relationship Specialty Start Date End Date Moustapha De Leon MD [address] [place] [address] PCP - General Family Medicine 11/08/23 Stephanie Peters, OD [address] [place] [address] Referring Physician Optometry 11/08/23 Delmi Love NP [address] [place] [address] Nurse Practitioner Family Medicine 07/15/24 Tender Labor Relationship Specialty Start Date End Date Jose David Godwin DO PCP - General Family Medicine 04/01/20 Tender Labor Relationship Specialty Start Date End Date Moustapha De Leon MD [address] [place] [address] PCP - General Family Medicine 11/08/23 Stephanie Peters, OD [address] [facility] [place] [address] Referring Physician Optometry 11/08/23 Delmi Love, JADE [address] [place] [address] Nurse Practitioner Family Medicine 07/15/24 Tender Labor Relationship Specialty Start Date End Date Jose David Godwin DO PCP - General Family Medicine 04/01/20 Tender Labor Relationship Specialty Start Date End Date Jose David Godwin DO PCP - General Family Medicine 04/01/20 Tender Labor Relationship Specialty Start Date End Date Moustapah De Leon MD [address] [place] [address] PCP - General Family Medicine 11/08/23 Stephanie Peters OD [address] [place] [address] Referring Physician Optometry 11/08/23 Delmi Love, COMM[employer]ITY [employer] WORKER [address] [place] [address] Nurse Practitioner Family Medicine 07/15/24 Tender Labor Relationship Specialty Start Date End Date Moustapha De Leon MD [address] [place] [address] PCP - General Family Medicine 11/08/23 Stephanie Peters OD [address] [facility] [place] [address] Referring Physician Optometry 11/08/23 Delmi Love NP [address] [place] [address] Nurse Practitioner Family Medicine 07/15/24 Tender Labor Relationship Specialty Start Date End Date Moustapha De Leon MD [address] [place] [address] PCP - General Family Medicine 11/08/23 Stephanie Peters, HORACE [facility] [place] [address] Referring Physician Optometry 11/08/23 Delmi Love NP [address] [place] [address] Nurse Practitioner Family Medicine 07/15/24 Team Status: Inactive Member Role Status Dates ALEX SanfordC Primary Care Provider Ac tive Start: September 10, 2024 End: September 10, 2024 Yuliet Perez APRN Attending Provider Active Start: September 10, 2024 End: September 10, 2024 Team Status: Inactive Member Role Status Dates Yuliet Perez APRN Attending Provider Active Start: September 10, 2024 End: September 10, 2024 Tender Labor Relationship Specialty Start Date End Date Moustapha De Leon MD [address] [place] [address] PCP - General Family Medicine 11/08/23 Stephanie Peters, OD [address] [place] [address] Referring Physician Optometry 11/08/23 Delmi Love, JADE [address] [place] [address] Nurse Practitioner Family Medicine 07/15/24 Tender Labor Relationship Specialty Start Date End Date Moustapha De Leon MD [address] [place] [address] PCP - General Family Medicine 11/08/23 Stephanie Peters, OD [address] [place] [address] Referring Physician Optometry 11/08/23 Delmi Love NP [address] [place] [address] Nurse Practitioner Family Medicine 07/15/24 Tender Labor Relationship Specialty Start Date End Date Moustapha De Leon MD [address] [place] [address] PCP - General Family Medicine 11/08/23 Stephanie Peters, OD [address] [place] [address] Referring Physician Optometry 11/08/23 Delmi Love NP [address] [place] [address] Nurse Practitioner Family Medicine 07/15/24 Tender Labor Relationship Specialty Start Date End Date Moustapha De Leon MD [address] [place] [address] PCP - General Family Medicine 11/08/23 Stephanie Peters, OD [address] [place] [address] Referring Physician Optometry 11/08/23 Delmi Love NP [address] [place] [address] Nurse Practitioner Family Medicine 07/15/24 Tender Labor Relationship Specialty Start Date End Date Moustapha De Leon MD [address] [place] [address] PCP - General Family Medicine 11/08/23 Stephanie Peters, OD [address] [place] [address] Referring Physician Optometry 11/08/23 Delmi Love NP [address] [place] [address] Nurse Practitioner Family Medicine 07/15/24 Tender Labor Relationship Specialty Start Date End Date Moustapha De Leon MD [address] [place] [address] PCP - General Family Medicine 11/08/23 Stephanie Peters, OD [address] [place] [address] Referring Physician Optometry 11/08/23 Delmi Love NP [address] [place] [address] Nurse Practitioner Family Medicine 07/15/24 Tender Labor Relationship Specialty Start Date End Date Moustapha De Leon MD [address] [place] [address] PCP - General Family Medicine 11/08/23 Stephanie Peters, OD [address] [place] [address] Referring Physician Optometry 11/08/23 Delmi Love NP [address] [place] [address] Nurse Practitioner Family Medicine 07/15/24 Tender Labor Relationship Specialty Start Date End Date Moustapha De Leon MD [address] [place] [address] PCP - General Family Medicine 11/08/23 Stephanie Peters, OD [address] [place] [id number] Referring Physician Optometry 11/08/23 Delmi Love NP [address] [place] [address] Nurse Practitioner Family Medicine 07/15/24 Tender Labor Relationship Specialty Start Date End Date Moustapha De Leon MD [address] [place] [address] PCP - General Family Medicine 11/08/23 Stephanie Peters, OD [address] [place] [address] Referring Physician Optometry 11/08/23 Delmi Love NP [address] [place] [address] Nurse Practitioner Family Medicine 07/15/24 Team Status: Active Member Role Status Dates Delmi Love Primary Care Provider Active Team Status: Inactive Member Role Status Dates Natalee Basilio APRN Attending Provider Active S tart: November 04, 2024 End: November 04, 2024 Delmi Love Primary Care Provider Active Sta rt: November 04, 2024 End: November 04, 2024 Team Status: Inactive Member Role Status Dates Natalee Basilio APRN Attending Provider Active S tart: November 04, 2024 End: November 04, 2024 Tender Labor Relationship Specialty Start Date End Date Moustapha De Leon MD [address] [place] [address] PCP - General Family Medicine 11/08/23 Stephanie Peters, OD [address] [place] [address] Referring Physician Optometry 11/08/23 Delmi Love NP [address] [place] [address] Nurse Practitioner Family Medicine 07/15/24 Tender Labor Relationship Specialty Start Date End Date Moustapha De Leon MD [address] [place] [address] PCP - General Family Medicine 11/08/23 Stephanie Peters, OD [address] [facility] [place] [address] Referring Physician Optometry 11/08/23 Delmi Love NP [address] [place] [address] Nurse Practitioner Family Medicine 07/15/24 Tender Labor Relationship Specialty Start Date End Date Moustapha De Leon MD [address] [place] [address] PCP - General Family Medicine 11/08/23 Stephanie Peters, OD [address] [facility] [place] [address] Referring Physician Optometry 11/08/23 Delmi Love NP [address] [place] [address] Nurse Practitioner Family Medicine 07/15/24 Tender Labor Relationship Specialty Start Date End Date Moustapha De Leon MD [address] [place] [address] PCP - General Family Medicine 11/08/23 Stephanie Peters, OD [address] [facility] [place] [address] Referring Physician Optometry 11/08/23 Delmi Love NP [address] [place] [address] Nurse Practitioner Family Medicine 07/15/24 Goals (unrecognized section and content) Goals may be documented in a n alternate sectionNo InformationGoals may be documented in an alternate sectionNot on filedocumented as of this encounterNot on filedocumented as of this encounterNot on filedocumented as of this encounterGoals may be documented in an alternate sectionGoals may be documented in an alternate sectionGoals may be documented in an alternate sectionGoals may be documented in an alternate section REASON FOR VISIT (unrecogniz ed section and content) Reason Comments Pain Reason Onset Date Comments Med Refill 02/11/2024 Reason Comments Foot Pain B/L foot pain Reason Onset Date Comments Med Refill 02/17/2024 Reason Comments Follow-up Reason Comments Skin Check Reason Comments Fever Reason Comments Foot Pain 74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 Pt states she has trouble walking. RGT pain, 4th digit left foot corn. Pt also relates callus on lateral dorsal foot. And relates pain, numbness with toes, also relates swelling. No recent xrays. Did purchase insoles from the [employer] but states they hurt her feet. SS: 10 Reason Onset Date Comments Advice Only 07/16/2024 Rx Change Reques t Reason Onset Date Comments Med Refill 07/23/2024 Reason Onset Date Comments Med Refill 08/05/2024 Reason Onset Date Comments Med Refill 08/11/2024 Reason Comments Follow-up Left ear pain Reason Comments New Patient *3:52 pt called, the y were at wrong building on [address], they are making their way to the office now, should be within the 15 minute angela period. Peripheral vascular [id number] (ICD-10-CM) - Smoker Specialty Diagnoses / Procedures Referred By Contjosette t Referred To Contact Vascular Surgery Diagnoses Peripheral vascular disease Smoker Procedures OK OFFICE OUTPATIENT VISIT 60-74 MINS HIGH MDM [id number] (SNOMED CT) - AMB REFERRAL TO VASCULAR SURGERY Darien Blanca, DPM [address] [place] [address] Phone: tel: fax: Rik Hightower MD [address] [place] [address] Phone: tel:[phone] fax: Referral ID Status Reason Start Date Expiration Date V isits Requested Visits Authorized [id number] Pending Review 07/21/2024 01/17/2025 1 1 Reason Comments Fatigue Reason Comments FUV Metanx Bertha Galarza 74yo New Patient presents for 3 month FUV of Metanx therapy. Patient relates she did not start Metanx due to cost. Patient would like a refill for the Alpha Lipoic acid. Patient had an appt. Yesterday with Neurology at [facility] in [place] (dr. Guevara)SS: 10 Reason Onset Date Comments Med Refill 11/02/2024 Reason Comments Numbness and tingling of both feet INFORMATION SOURCE (unrecogn ized section and content) DATE CREATED AUTHOR 07/08/2022 [facility] DATE CREATED AUTHOR AUTHOR'S ORGANIZ ATION 08/21/2024 [facility] DATE CREATED AUTHOR AUTHOR'S ORGANIZ ATION 11/06/2024 [facility] DATE CREATED AUTHOR AUTHOR'S ORGANIZ ATION 11/10/2024 [facility] EPIC DATE CREATED AUTHOR AUTHOR'S ORGANIZ ATION 11/15/2024 [facility] FOR RECORDS PERTAINING TO PATIENTS WHO [...] BE BASED ON THE PRIMARY CLINICAL RECORDS. [facility] [employer] provides no warranty or guarantee of the accuracy or completeness of information in this document.
[2024-12-17 12:04] LABS: Cholesterol 172 mg/dL (<=200); HDL Cholesterol 50 mg/dL (40-60); Triglycerides 318 mg/dL (<=150); VLDL CHOLESTEROL 63.6 mg/dL
== END 2024-12-17 11:01 | disposition home or self-care (01) ==
LOC: LAB 11:00
PROVIDERS: PCP Nurse Practitioner
DX: E78.00 Pure hypercholesterolemia, unspecified (principal)
CPT/HCPCS: 36415; 80061

== ENCOUNTER 2024-12-17 11:01 | Outpatient (OUT) | payer MEDICARE, SELFPAY ==
--- OUTSIDE RECORDS SUMMARY | 2024-12-17 11:14 | XMS_ITS | CCD ---
Author Organization [facility] CliniSyaz Care Team Providers Care Electrical Installation Inspector Name Role Phone DO Jose aDvid Godwin Primary Care Provider DO Jose David Godwin Attending Provider DO Trixie Gr Jr Other Provider [phone] Yuliet Perez Unavailable DO Jose David Godwin Primary Care Provider LUANN Perez Attending Provider SHAIKH Lorelei ENGEL Admitting Unavailable SHAIKH Lorelei ENGEL Attending Unavailable SHAIKH Lorelei ENGEL Primary Care Unavailable LUCIUS, DR KARI Stern Consulting Unavailable SHAIKH Lorelei ENGEL Consulting Unavailable MOAB, DR GARDINER Admitting Unavailable MOAB, DR GARDINER Attending Unavailable MOAB, DR GARDINER Primary Care Unavailable MOAB, DR GARDINER Consulting Unavailable MOAB, DR GARDINER Admitting Unavailable MOAB, DR GARDINER Attending Unavailable MOAB, DR GARDINER Primary Care Unavailable KEY WEST, DR KARI Stern Consulting Unavailable MOAB, DR GARDINER Consulting Unavailable Jose David Godwin MD Primary Care Provider Stephanie Peters OD Unavailable Moustapha De Leon MD Primary Care Provider Kunal Ortiz NP Unavailable Taiwo Rosa MD Attending Provider Diana HANSEN-Kunal Sanches Primary Care Provid er Kate HANSEN, Delmi Unavailable Jose David Godwin DO Primary Care Provider MIKE GANT Attending Unavailable DARIEN BLANCA Referring Unavailable JOSE DAVID GODWIN Primary Care Unavailable JOSE DAVID GODWIN Referring Unavailable JOSE DAVID GODWIN Primary Care Unavailable Yuliet Perez APRN Attending Provider Diana LARGE SHEETFED PRESS OPERATOR-CKunal Primary Care Provid er Yuliet Perez APRN Attending Provider Natalee Basilio APRN Attending Provider [phone] Delmi Love Primary Care Provider [phone] Taiwo Rosa Attending Unavailable Taiwo Rosa Admitting [...] Referring Unavailabl e ORTIZ, KUNAL Attending Unavailabl BEN Amador Attending Unavailable ORTIZ, KUNAL Attending Unavailabl e PETITTBENJAMIN Owusu Attending Unavailable AICHHOLZ, DELMI Attending Unavailable ALGHOTHANIJULIO CESAR Attending Unavailable ALGHOTHANI, JULIO CESAR Attending Unavailable OSKAR, GAURAV Attending Unavailable OSKAR, GAURAV Attending Unavailable Allergies Allergy Classification Reported Allergen(s) Allergy Type Date of Onset Reaction(s) Facility (1 source) Penicillin G Drug Allergy rash [email or web address] Other (1 source) Penicillin Drug Allergy 09-24-19 20 [facility] Repository (20 sources) Penicillins; Translations: [PENICILLINS] Drug Allergy 12-19-19 13 Hives, Itching, Rash [facility] (20 sources) atorvastatin; Translations: [ATORVASTATIN] Drug Allergy 12-04-19 24 Other [facility] (3 sources) atorvastatin Drug Allergy 08-12-19 25 [facility] (3 sources) Penicillins Propensity to adverse reactions to drug 12-19-19 13 Rash [facility] (1 source) Penicillin Drug Allergy 11-05-19 25 [facility] Repository Medications Current Medications Medication Drug Class(es) Dates Sig (Normalized) Sig (Original) [id number] 200 actuat albuterol 0.09 mg/actuat metered dose [...] by mouth at bedtime fish oil concentrate (Oronoco-3) 1000 MG capsule Indications: Mixed hyperlipidemia (CMS/HCC) [...] 03/02/2024 07/16/2024 Discontinued (Therapy completed) Flonase Active U-Yufbgvjvhmhl-Rhoee-B12-B6 (Metanx) 3-90.314-2-35 MG capsule (20 sources) Start: 07-15-2024 End: 10-13-2024 take 1 capsule by mouth in the morning E-Dmemplzoucsb-Vsxsx-B12-B6 (Metanx) 3-90.314-2-35 MG capsule Indications: Neuropathy, idiopathic [...] days 10 mL 07/16/2024 07/23/2024 Active omega 1-icz-zft-fish oil (Fish OiL) 1,000 (120-180) mg capsule (1 source) take 1 capsule by mouth in the morning omega 0-stu-evq-fish oil (Fish OiL) 1,000 (120-180) mg capsule Take 1 capsule by mouth in the morning. Active Oronoco 5-Ahv-Rct-Fish Oil (Fish Oil) 100-160-1,000 mg capsule (5 sources) Start: 04-20-2024 take 100-160 capsules by mouth twice daily Start: 04-20-2024 take 100-160 capsule s by mouth twice daily O[place]oco 9-Mtx-Hvs-Fish Oil (Fish Oil) 100-160-1,000 mg capsule Active 2 CAP PO Twice daily April 20, 2024 1:00am Complies with drug therapy Start: 04-20-2024 take 100-160 capsule s by mouth twice daily O[place]oco 9-Bhx-Kig-Fish Oil (Fish Oil) 100-160-1,000 mg capsule Active 2 CAP PO Twice daily April 20, 2024 1:00am Start: 04-20-2024 take 100-160 capsule s by mouth twice daily [place] 2-Omz-Mbk-Fish Oil (Fish Oil) 100-160-1,000 mg capsule Active 2 CAP PO Twice daily April 20, 2024 12:00am omeprazole 20 mg delayed release oral capsule (9 sources) Proton Pump Inhibitor Start: 04-20-2024 take 1 capsule by mouth once daily as needed Start: 05-13-2020 take 1 tablet by richard [...] 11/13/2024 12:01 PM Modules accepted: Orders Normal [facility] Office Visiton 11-13-2024 Follow-up visit [id number] Bertha Galarza 1950 F Date Provider Department Center 11/13/2024 [id number], ADAM CARD Ka[facility] Family History Problem Relation Age of Onset Coronary artery disease Mother Coronary artery disease Sister Coronary artery disease Brother Family Status - Relation Status Age at Mother Sister Brother Level of Service:98308 [place] OFFICE/OUTPATIENT ESTABLISHED MOD MDM 30 MIN Normal [facility] Urine Cultureon 11-04-2024 Bacteria identified Cx Nom (U) ORGANISM: Escherichia coli (O:ESCCOL) [place] Count >100,000 Aerobic ALMA Charge (NMIC56) ---- [...] RESISTANT TO ALL B-LACTAM DRUGS. PERFORMED BY: [place] [address] PATHOLOGIST MARKING STITCHER DAVI BURGOS M.D. Normal [facility] Comment on above: Performed By: #### C UU #### [place] [address] [place] Orders Onlyon 11-02-2024 Orders Only [id number] Bertha Galarza 1950 F Date Provider Department Center 11/02/2024 [id number], HISTORICAL CARD Ka[facility] Hos Family History Problem Relation Age of Onset Coronary artery disease Mother Coronary artery disease Sister Coronary artery disease Brother Family Status - Relation Status Age at Mother Sister Brother Normal [facility] NM UNA PERF SPECT REST STRon 11-01-2024 [place] [address] Nuclear Medicine Report Signed Patient: BERTHA GALARZA MR#: [id number] : 1950 Acct:[id number] Age/Sex: 74 / F ADM Date: 10/30/24 Loc: [place] Attending Dr: Gaurav Schmitt NP Ordering Physician: Gaurav Schmitt NP Date of Service: 10/30/24 Procedure(s): NM una perf SPECT rest str Accession Number(s): [id number] cc: Delmi Love NP; Gaurav Schmitt NP Patient Name: BERTHA GALARZA MR#: [id number] : 1950 Exam Date: 10/30/2024 Ordering Doctor: [...] the study was pending per attending physician [facility] . For more details please see separate [...] M.D. Signed By: 11/01/241834 DD/ 33 TD/TT: Corporate Human Resources Manager: [facility] Radiology, Radiologist, MD - 11/01/2024 [place] [address] Nuclear Medicine Report Signed Patient: BERTHA GALARZA MR#: [id number] : 1950 Acct:[id number] Age/Sex: 74 / F ADM Date: 10/30/24 Loc: [place] Attending Dr: Gaurav Schmitt NP Ordering Physician: Gaurav Schmitt NP Date of Service: 10/30/24 Procedure(s): NM una perf SPECT rest str Accession Number(s): [id number] cc: Delmi Love LARGE SHEETFED PRESS OPERATOR; Gaurav Schmitt NP Patient Name: BERTHA GALARZA MR#: [id number] : 1950 Exam Date: 10/30/2024 Ordering Doctor: [...] the study was pending per attending physician [facility] . For more details please see separate [...] M.D. Signed By: 11/01/241834 DD/ 33 TD/TT: Corporate Human Resources Manager: [facility] Radiology Study observation (narrative) [facility] NM UNA PERF SPECT REST STROr dered By: Radiologist Radiology on 11-01-2024 [facility] [employer] e Work Phone: ALL LIPID PROFILE (FASTING)o n 10-20-[address] [facility] hcare Comment on above: 3.3 - 4.4 LOW RISK 4.4 - 7.1 AVERAGE RISK 7.1 - 11.0 MODERATE RISK >11.0 HIGH RISK Cholesterol [Mass/Vol] 152 mg/dL NINF - 200 mg/dL [facility] Cholesterol in HDL [Mass/Vol] 50 mg/dL 40 - 60 mg/dL [facility] Comment on above: > or =60 mg/dl - LOW CARDIOVASCULAR RISK <40 mg/dl - HIGH CARDIOVASCULAR RISK Interpretation and review of laboratory results Abnormal [facility] Magnesium [Mass/Vol] 32 mg/dL [facility] Comment on above: <100 mg/dl OPTIMAL 100-129 mg/dl NEAR OR ABOVE OPTIMAL 130-159 mg/dl BORDERLINE HIGH 160-189 mg/dl HIGH >190 mg/dl VERY HIGH Magnesium [Mass/Vol] 70.2 mg/dL [facility] Triglyceride [Mass/Vol] 351 mg/dL High NINF - 150 mg/dL [facility] [employer] Office Visiton 10-19-2024 Follow-up visit [id number] Bertha Galarza 1950 F Date Provider Department Center 10/19/2024 [id number], ADAM [facility] Kailee Hos Family History Problem Relation Age of Onset Coronary artery disease Mother Coronary artery disease Sister Coronary artery disease Brother Family Status - Relation Status Age at Mother Sister Brother Level of Service:50568 [place] OFFICE/OUTPATIENT ESTABLISHED MOD MDM 30 MIN Normal [facility] XR CERVICAL SPINE 2-3 VIEWSo n 09-28-2024 [...] report is generated using voice recognition reporting (Suja Juice). On occasion, Stevia Firste erroneously drops words from the report or [...] report is generated using voice recognition reporting (Suja Juice). On occasion, Stevia Firste erroneously drops words from the report or replaces the spoken word with a similar sounding word. Please call with any questions/concerns regarding the report. Dictated on: 09/28/2024 1:06 PM 09/28/2024 9:36 AM This report has been electronically signed and approved by the interpreting Radiologist. Normal Not Available Laboratory - Chemistry and C hemistry - challengeon 09-10-2024 Bilirubin Ql (U) Negative [facility] Glucose (U) [Mass/Vol] Negative [facility] Ketones Ql (U) Negative [facility] pH (U) 6.0 [pH] [facility] Specific gravity (U) [Rel density] 1.025 [facility] Urobilinogen (U) [Mass/Vol] 0.2 mg/dL [facility] Laboratory - Specimen inform ationon 09-10-2024 Appearance (U) cloudy [facility] Color (U) yellow [facility] Laboratory - Urinalysison Leukocyte esterase Test strip Ql (U) large [facility] Nitrite Ql (U) Positive [facility] Protein Ql (U) 100 [facility] No Panel Informationon 09-10 Urine Occult Blood moderate [facility] Urine Cultureon 09-10-2024 Bacteria identified Cx Nom (U) ORGANISM: Escherichia coli (O:ESCCOL) [place] Count >100,000 Aerobic ALMA Charge (NMIC56) ---- [...] RESISTANT TO ALL B-LACTAM DRUGS. PERFORMED BY: [place] [address] PATHOLOGIST MARKING STITCHER DAVI BURGOS M.D. Normal [facility] Comment on above: Performed By: #### C UU #### [address] Urine cultureOrdered By: Litzy Perez on 09-10-2024 Bacteria identified Cx Nom (U) Escherichia coli Abnormal [facility] ECG 12-LEADon 08-27-2024 [place] [address] Electrocardiograph Report Signed Patient: BERTHA GALARZA MR#: [id number] : 1950 Acct:[id number] Age/Sex: 74 / F ADM Date: 08/26/24 Loc: CARD Attending Dr: Delmi Love NP Ordering Physician: Delmi Love NP Date of Service: 08/26/24 Procedure(s): ECG 12 lead Accession Number(s): [id number] cc: [facility] Test Date: 2024-08-26 Pat Name: BERTHA GALARZA Department: Room: - Gender: Female Vending Machine Servicer: : 1950 Requested By: DELMI LOVE Order Number: [id number] Reading MD: TRIXIE AVENDAÑO M.D. Measurements Intervals [place] Rate: 82 P: 79 [place]: 153 QRS: -70 QRSD: 120 T: 59 [...] AVENDAÑO Signed By: 08/27/24194208/27/241942 DD/ 1318 TD/TT: Corporate Human Resources Manager: [facility] Radiology, Radiologist, MD - 08/27/2024 [place] [address] Electrocardiograph Report Signed Patient: BERTHA GALARZA MR#: [id number] : 1950 Acct:[id number] Age/Sex: 74 / F ADM Date: 08/26/24 Loc: CARD Attending Dr: Delmi Love NP Ordering Physician: Delmi Love NP Date of Service: 08/26/24 Procedure(s): ECG 12 lead Accession Number(s): [id number] cc: [facility] Test Date: 2024-08-26 Pat Name: BERTHA GALARZA Department: Room: - Gender: Female Vending Machine Servicer: : 1950 Requested By: DELMI LOVE Order Number: [id number] Reading MD: TRIXIE AVENDAÑO M.D. Measurements Intervals [place] Rate: 82 P: 79 [place]: 153 QRS: -70 QRSD: 120 T: 59 [...] AVENDAÑO Signed By: 08/27/24194208/27/241942 DD/ 17 TD/TT: Corporate Human Resources Manager: [facility] ECG 12-LEADOrdered By: Radio logist Radiology on 08-27-2024 [facility] Work Phone: ALL CBC WITH AUTO DIFFon BASOPHILS ABSOLUTE AUTO 0 [facility] Basophils/100 WBC (Bld) 0.2 % 0.2 - 2.0 % [facility] Eosinophils/100 WBC (Bld) 1.4 % 0.9 - 7.0 % [facility] Erythrocyte distribution width (RBC) [Ratio] 12.3 % 11.0 - 15.0 % [facility] Hematocrit (Bld) [Volume fraction] 42.4 % 36.0 - 48.0 % [facility] Hemoglobin (Bld) [Mass/Vol] 14.3 g/dL 12.0 - 16.0 g/dL [facility] IMMATURE GRANULOCYTES ABS AUTO 0.02 [facility] Immature granulocytes/100 WBC (Bld) 0.2 % 0.0 - 0.5 % [facility] Interpretation and review of laboratory results Abnormal [facility] LYMPHOCYTES ABSOLUTE AUTO 1.7 [facility] Lymphocytes/100 WBC (Bld) 20.7 % 20.5 - 60.0 % [facility] MCH (RBC) [Entitic mass] 32.1 pg 26.7 - 34.0 pg [facility] MCHC (RBC) [Mass/Vol] 33.7 g/dL 29.9 - 35.2 g/dL [facility] MCV (RBC) [Entitic vol] 95.3 fL 81.0 - 99.0 fL [facility] MONOCYTES ABSOLUTE AUTO 0.8 [facility] Monocytes/100 WBC (Bld) 10.2 % 1.7 - 12.0 % [facility] NEUTROPHILS ABSOLUTE AUTO 5.4 [facility] Neutrophils/100 WBC (Bld) 67.3 % 43.0 - 75.0 % [facility] Platelet mean volume (Bld) [Entitic vol] 9.2 fL Low 9.5 - 13.5 fL [facility] TBH EO # 0.1 [facility] e TB PLT 230 [facility] e TB RBC 4.45 [facility] TBH WBC 8.1 [facility] ECG 12-LEADon 08-26-2024 Radiology Study observation (narrative) [facility] US LOWER EXTREMITY VENO US INSUFFICIENCY BILATERALon 08-25-2024 [facility] US LOWER EXTREMITY VENOUS INSUFFICIENCY BILATERAL EXAM: [...] report is generated using voice recognition reporting (beatlab). On occasion [employer]lab erroneously drops words from the report or replaces the spoken word with similar sounding words. Please call with any questions/concerns regarding this report.* Dictated and transcribed 08/25/24/dpd This report has been electronically signed and approved by the interpreting radiologist. Normal Not Available No Panel Informationon 07-15 Radiology Study observation (narrative) [facility] US PVR/SEGMENTAL PRESSU RES LOWERon 07-15-2024 [facility] US PVR/SEGMENTAL PRESSURES LOWER EXAM: Lower Extremity [...] report is generated using voice recognition reporting (beatlab). On occasion [employer] erroneously drops words from the report or [...] There is slight increase in [place] angle. [facility] Foot - right 3 Viewson [...] There is slight increase in [place] angle. [employer] [facility] CALCIUMon 06-05-2024 Calcium [Mass/Vol] 9.3 mg/dL 8.5 - 10. 1 mg/dL [facility] [employer] Office Visiton 06-02-2024 Follow-up visit [id number] Bertha Galarza 1950 F Date Provider Department Center 06/02/2024 [id number] CESAR [place]RE[place] Family History Problem Relation Age of Onset Coronary artery disease Mother Coronary artery disease Sister Coronary artery disease Brother Family Status - Relation Status Age at Mother Sister Brother Level of Service:93567 [place] OFFICE/OUTPATIENT ESTABLISHED LOW MDM 20 MIN Normal [facility] Optical coherence tomography study reporton 05-25-2024 [facility] [employer] [facility] Radiology Study observation (narrative) [facility] 05-01-2024 L - -------- Specimen: [id number] Received: 05/01/24 Status: LUCAS Shaw Num: [id number] Spec Type: Surgical Subm Dr: Taiwo Rosa MD Tissues: A Colon Biopsy (CECUM COLON POLYPS) B Colon Biopsy (TRANSVERSE COLON POLYPS) C Colon Biopsy (DESCENDING COLON POLYPS) D Colon Biopsy (SIGMOID COLON POLYP) Procedures: Cayden HARRISON/Rand L4/4 -------- Age/ Patient Sex Location Account Attending Physician -------- Bertha Galarza 74/F [id number] Taiwo Rosa MD -------- SPEC NUM: [id number] RECD: 05/01/24 STATUS: LUCAS RILEY NUM: [id number] ANGELITA: 05/01/[address] [facility] DR: Taiwo Rosa MD ENTERED: 05/01/24-1339 [facility] DR: SPEC TYPE: Surgical DEPT: S ENTERED BY: [id number] RECV BY: [id number] ORDERED: HE/10, Gross/Micro L4/4 ORDERED: HE/10, Gross/Micro [...] [id number] Received: 05/01/24 Status: LUCAS Riley Num: [id number] Spec Type: Surgical Subm Dr: Taiwo Rosa MD Tissues: A Colon Biopsy (CECUM COLON POLYPS) B Colon Biopsy (TRANSVERSE COLON POLYPS) C Colon Biopsy (DESCENDING COLON POLYPS) D Colon Biopsy (SIGMOID COLON POLYP) Procedures: HE/10, Gross/Micro L4/4 -------- Patient: Bertha Galarza [id number] (Continued) -------- Specimen: [id number] Received: 05/01/24 (Continued) Gross Description (Continued) Signed (signature on file) Rik Juárez MD 05/04/24 1453 -------- Specimen: [id number] Received: 05/01/24 Status: LUCAS Shaw Num: [id number] Spec Type: Surgical Subm Dr: Taiwo Rosa MD Tissues: A Colon Biopsy (CECUM COLON POLYPS) B Colon Biopsy (TRANSVERSE COLON POLYPS) C Colon Biopsy (DESCENDING COLON POLYPS) D Colon Biopsy (SIGMOID COLON POLYP) Procedures: RANDALL/Cayden Jackson/Micro L4/4 -------- Patient: Bertha Galarza [id number] (Continued) -------- Specimen: Received: 05/01/24-1301 (Continued) Gross Description (Continued) Part B is [...] cassette. (1, ns, 7- D) CPT Codes 37845p9 -------- (more content not included)... Normal [facility] MLR HEMOGLOBIN A1Con 024 Glucose [Mass/Vol] 123 mg/dL [facility] HbA1c (Bld) [Mass fraction] 5.9 % 4.5 - 6.2 % [facility] Comment on above: ADA RECOMMENDED LIMI T 4.0 - 6.0 ADA THERAPEUTIC TARGET < 7.0 ACTION SUGGESTED > 7.0 [facility] ALL LIPID PROFILE (FASTING)o n 02-18-[address] [facility] hcare Comment on above: 3.3 - 4.4 LOW RISK 4.4 - 7.1 AVERAGE RISK 7.1 - 11.0 MODERATE RISK >11.0 HIGH RISK Cholesterol [Mass/Vol] 160 mg/dL NINF - 200 mg/dL [facility] Cholesterol in HDL [Mass/Vol] 49 mg/dL 40 - 60 mg/dL [facility] Comment on above: > or =60 mg/dl - LOW CARDIOVASCULAR RISK <40 mg/dl - HIGH CARDIOVASCULAR RISK Interpretation and review of laboratory results Abnormal [facility] re Magnesium [Mass/Vol] 49 mg/dL [facility] Comment on above: <100 mg/dl OPTIMAL 100-129 mg/dl NEAR OR ABOVE OPTIMAL 130-159 mg/dl BORDERLINE HIGH 160-189 mg/dl HIGH >190 mg/dl VERY HIGH Magnesium [Mass/Vol] 62.6 mg/dL [facility] Triglyceride [Mass/Vol] 313 mg/dL High NINF - 150 mg/dL [facility] [employer] TSH W/REFLEX T4on 01-22-2024 TSH Qn 0.892 m[IU]/L [facility] Office Visiton 12-04-2023 Follow-up visit [id number] Bertha Galarza 1950 F Date Provider Department [place] 12/04/2023 3848-JULIO CESAR BORREGO [facility] Family History Problem Relation Age of Onset Coronary artery disease Mother Coronary artery disease Sister Coronary artery disease Brother Family Status - Relation Status Age at Mother Sister Brother Level of Service:15374 [place] OFFICE/OUTPATIENT NEW LOW MDM 30 MINUTES Normal [facility] US CAROTID ARTERY DUPLE X BILATERALon 11-20-2023 [facility] US CAROTID ARTERY DUPLEX BILATERAL EXAM: Carotid Ultrasound. REASON FOR EXAM: Hypertriglycerdemia. Reference Exam: None TECHNIQUE: Real-time ultrasonographic analysis with color flow Doppler sequencing and Doppler spectral analysis provided for the carotid systems. FINDINGS: Peak systolic velocities are expressed in centimeters per second Carotid Velocities in cm/sec: Right Peak Systole/End Diastole RCCA: 72.20/23.89 RT BULB: 63.18-20.17 AGNUS: P: 87.07/26.55 M: 109.37/33.98 D: 80.36/29.81 RECA: [...] report is generated using voice recognition reporting (beatlab). On occasion [employer] erroneously drops words from the report or replaces the spoken word with similar sounding words. Please call with any questions/concerns regarding this report.* Dictated and transcribed 11/25/23/dpd This report has been electronically signed and approved by the interpreting radiologist. Electronically Signed Jamia Riddle M.D. 2023-11-25 14:40:34 Normal Not Available DIRECT LDLon 07-03-2022 Cholesterol in LDL [Mass/Vol] 174 mg/dL Normal [facility] Comment on above: Performed By: #### D LDL, LIPID, TSH #### [facility] [address] [address] [address] Radha Farris DLDL NORMAL SEE BELOW Normal [facility] Comment on above: Result Comment: <100 mg/dl OPTIMAL 100 - 129 mg/dl NEAR OR ABOVE OPTIMAL 130 - 159 mg/dl BORDERLINE HIGH 160 - 189 mg/dl HIGH >190 mg/dl VERY HIGH Performed By: #### D LDL, LIPID, TSH #### [facility] [address] [address] [address] Radha Farris LIPID PROFILEon 07-03-2022 CHOL-HDL RATIO NORM SEE BELOW Normal [facility] Comment on above: Result Comment: 3.3 - 4.4 LOW RISK 4.4 - 7.1 AVERAGE RISK 7.1 - 11.0 MODERATE RISK >11.0 HIGH RISK Performed By: #### D LDL, LIPID, TSH #### [facility] [address] [address] [address] Radha Farris Cholesterol [Mass/Vol] 395 mg/dL Critically high <=200 [facility] Comment on above: Performed By: #### D LDL, LIPID, TSH #### [facility] [address] [address] [address] Radha Farris Cholesterol in HDL [Mass/Vol] 35 mg/dL Critically low 40-60 [facility] Comment on above: Performed By: #### D LDL, LIPID, TSH #### [facility] [address] [address] [address] Radha Farris Cholesterol.total/C holesterol in HDL [Mass ratio] 11.3 {ratio} Normal [facility] Comment on above: Performed By: #### D LDL, LIPID, TSH #### [facility] [address] [address] [address] Radha Farris HDL NORMAL > or = 60 mg/dl - LO W CARDIOVASCULAR RISK <40 mg/dl - HIGH CARDIOVASCULAR RISK Normal [facility] Comment on above: Performed By: #### D LDL, LIPID, TSH #### [facility] [address] [address] [address] Radha Farris Triglyceride [Mass/Vol] 935 mg/dL Critically high <=150 [facility] Comment on above: Performed By: #### D LDL, LIPID, TSH #### [facility] [address] [place], [place] [address] Dr. Radha Farris TSHon 07-03-2022 TSH 0.906 uIU/mL Normal 0.358-3.740 [facility] Comment on above: Performed By: #### D LDL, LIPID, TSH #### [facility] [address] [place], [place] [address] Dr. Radha Farris XR LSPINE 2_3 VIEWSon [...] by: KARI KAN Date: 2022-07-03 13:22 Normal [facility] MAMM SCREEN 3D RABIA CADon 03-29-2022 MG MAMM SCREEN 3D RABIA CAD Patient: BERTHA GALARZA Exam Date: 03/29/2022 : 1950 Gender:F Ordering : DR JOSE DAVID GODWIN D.O. Admission #: [id number] Family : Order #: [id number] CLICK HERE TO VIEW EXAM RADIOLOGY REPORT [...] colon cancer at age 55. LOCATION: [facility] BREAST COMPOSITION: Scattered areas fibroglandular [...] Kan MD on 03/29/2022 at 13:23 Normal [facility] T4on 02-06-2022 T4 [Mass/Vol] 9.60 ug/dL Normal 4.80-13.90 [facility] Comment on above: Performed By: #### T 4, TSH #### [facility] [address] [address] [address] Radha Farris TSHon 02-06-2022 TSH 0.188 uIU/mL Critically low 0.358-3.740 [facility] Comment on above: Performed By: #### T 4, TSH #### [facility] [address] [address] [address] Radha Farris Urine culture routineOrdered By: Yuliet Perez on 11-29-2021 Bacteria identified Cx Nom (U) Escherichia coli [facility] Urinalysis - AUTOMATEDon Appearance (U) clowdy [facility] Other Bilirubin Ql (U) Negative [employer] Other Color (U) yellow [email or web address] Other Glucose Ql (U) Negative [facility] Other Hemoglobin Ql (U) small [employer] Other Ketones Ql (U) Negative [facility] Other Leukocyte esterase Test strip Ql (U) large [email or web address] Other Nitrite Ql (U) Negative [employer] Other pH (U) 6.0 [pH] [email or web address] Other Protein Ql (U) 30 [employer] Other Specific gravity (U) [Rel density] 1.020 [email or web address] Other Urobilinogen (U) [Mass/Vol] 0.2 mg/dL [email or web address] Other Urinalysis - AUTOMATED [email or web address] Other Urine Cultureon 11-26-2021 Urine Culture 20,000 [email or web address] Other Urine Culture <16 Susceptible [employer] Other Urine Culture <8 Susceptible [facility] Other Urine Culture <4 Susceptible [employer] Other Urine Culture <2 Susceptible [employer] Other Urine Culture <1 Susceptible [employer] Other Urine Culture <0.5 Susceptible [employer] Other Urine Culture <32 Susceptible [employer] Other Urine Culture <2/38 Susceptible [employer] Other Vital Signs Date Time Vital Sign Value Performing Clinician Facility 11-09-2024 15:15-0400 Body mass index (BMI) [Ratio] 32.35 kg/m2 Delmi Love LARGE SHEETFED PRESS OPERATOR Work Phone: [facility] 11-09-2024 15:15-0400 Body temperature 98.49 [degF] Delmi Love LARGE SHEETFED PRESS OPERATOR Work Phone: [facility] 11-09-2024 15:15-0400 Body weight 90.9 kg Delmi Love LARGE SHEETFED PRESS OPERATOR Work Phone: [facility] 11-09-2024 15:15-0400 Diastolic blood pressure 76 mm[Hg] Delmi Aichholz LARGE SHEETFED PRESS OPERATOR Work Phone: [facility] 11-09-2024 15:15-0400 Heart rate 84 /min Delmilea Perezz LARGE SHEETFED PRESS OPERATOR Work Phone: [facility] 11-09-2024 15:15-0400 Respiratory rate 18 /min Delmi Jonesholz LARGE SHEETFED PRESS OPERATOR Work Phone: [facility] 11-09-2024 15:15-0400 SaO2% (BldA) [Mass fraction] 93 % Delmi Perezz LARGE SHEETFED PRESS OPERATOR Work Phone: [facility] 11-09-2024 15:15-0400 Systolic blood pressure 132 mm[Hg] Delmi Jonesholz LARGE SHEETFED PRESS OPERATOR Work Phone: [facility] 11-04-2024 18:28-0400 Body height 167.64 cm Kunal Ortiz LARGE SHEETFED PRESS OPERATOR-C Work Phone: [facility] 11-04-2024 18:28-0400 Body mass index (BMI) [Ratio] 32.3 kg/m2 Kunal Ortiz LARGE SHEETFED PRESS OPERATOR-C Work Phone: [facility] 11-04-2024 18:28-0400 Body temperature 97.4 [degF] Kunal Ortiz LARGE SHEETFED PRESS OPERATOR-C Work Phone: [facility] 11-04-2024 18:28-0400 Body weight 90.71 kg Kunal Ortiz LARGE SHEETFED PRESS OPERATOR-C Work Phone: [facility] 11-04-2024 18:28-0400 Diastolic blood pressure 73 mm[Hg] Kunal Ortiz LARGE SHEETFED PRESS OPERATOR-C Work Phone: [facility] 11-04-2024 18:28-0400 Heart rate 101 /min Kunal Ortiz LARGE SHEETFED PRESS OPERATOR-C Work Phone: [facility] 11-04-2024 18:28-0400 Respiratory rate 18 /min Kunal Ortiz LARGE SHEETFED PRESS OPERATOR-C Work Phone: [facility] 11-04-2024 18:28-0400 SaO2% (BldA) [Mass fraction] 95 % Kunal Smithtrick LARGE SHEETFED PRESS OPERATOR-C Work Phone: [facility] 11-04-2024 18:28-0400 Systolic blood pressure 142 mm[Hg] Kunal Smithtrick LARGE SHEETFED PRESS OPERATOR-C Work Phone: [facility] 10-14-2024 10:34-0400 Body height 167.6 cm Darien Evangelist DPM Work Phone: [facility] 10-14-2024 10:34-0400 Body mass index (BMI) [Ratio] 32.77 kg/m2 Darien Evangelist DPM Work Phone: [facility] 10-14-2024 10:34-0400 Body weight 92.08 kg Darien Rus DPM Work Phone: [facility] 09-24-2024 15:38-0400 Body mass index (BMI) [Ratio] 32.77 kg/m2 Delmi Chrisz LARGE SHEETFED PRESS OPERATOR Work Phone: [facility] 09-24-2024 15:38-0400 Body temperature 98.29 [degF] Delmi Magdalenaloreleiholz LARGE SHEETFED PRESS OPERATOR Work Phone: [facility] 09-24-2024 15:38-0400 Body weight 92.08 kg Delmi Chrisz LARGE SHEETFED PRESS OPERATOR Work Phone: [facility] 09-24-2024 15:38-0400 Diastolic blood pressure 64 mm[Hg] Delmi Karenholz LARGE SHEETFED PRESS OPERATOR Work Phone: [facility] 09-24-2024 15:38-0400 Heart rate 76 /min Delmi Karenholz LARGE SHEETFED PRESS OPERATOR Work Phone: [facility] 09-24-2024 15:38-0400 Respiratory rate 18 /min Delmi Karenholz LARGE SHEETFED PRESS OPERATOR Work Phone: [facility] 09-24-2024 15:38-0400 SaO2% (BldA) [Mass fraction] 93 % Delmi Love LARGE SHEETFED PRESS OPERATOR Work Phone: [facility] 09-24-2024 15:38-0400 Systolic blood pressure 112 mm[Hg] Delmi Love LARGE SHEETFED PRESS OPERATOR Work Phone: [facility] 09-10-2024 14:22-0400 Body height 167.64 cm [facility] 09-10-2024 14:22-0400 Body mass index (BMI) [Ratio] 32.5 kg/m2 [facility] 09-10-2024 14:22-0400 Body temperature 97.7 [degF] [facility] 09-10-2024 14:22-0400 Body weight 91.34 kg [facility] 09-10-2024 14:22-0400 Diastolic blood pressure 69 mm[Hg] [facility] 09-10-2024 14:22-0400 Heart rate 83 /min [facility] 09-10-2024 14:22-0400 Respiratory rate 18 /min [facility] 09-10-2024 14:22-0400 SaO2% (BldA) [Mass fraction] 95 % [facility] 09-10-2024 14:22-0400 Systolic blood pressure 133 mm[Hg] [facility] 08-18-2024 16:03-0400 Body height 165.1 cm Mike Gant MD Work Phone: [facility] 08-18-2024 16:03-0400 Body mass index (BMI) [Ratio] 33.95 kg/m2 Mike Gant MD Work Phone: [facility] 08-18-2024 16:03-0400 Body weight 92.53 kg Mike Gant MD Work Phone: [facility] 08-18-2024 16:03-0400 Diastolic blood pressure 76 mm[Hg] Mike Gant MD Work Phone: [facility] 08-18-2024 16:03-0400 Heart rate 83 /min Mike Gant MD Work Phone: [facility] 08-18-2024 16:03-0400 SaO2% (BldA) [Mass fraction] 94 % Mike Gant MD Work Phone: [facility] 08-18-2024 16:03-0400 Systolic blood pressure 120 mm[Hg] Mike Gant MD Work Phone: [facility] 08-12-2024 13:44-0400 Body mass index (BMI) [Ratio] 32.89 kg/m2 Delmi Aichholz LARGE SHEETFED PRESS OPERATOR Work Phone: [facility] 08-12-2024 13:44-0400 Body temperature 97.59 [degF] Delmi Aichholz LARGE SHEETFED PRESS OPERATOR Work Phone: [facility] 08-12-2024 13:44-0400 Body weight 92.44 kg Delmi Aichholz LARGE SHEETFED PRESS OPERATOR Work Phone: [facility] 08-12-2024 13:44-0400 Diastolic blood pressure 72 mm[Hg] Delmi Aichholz LARGE SHEETFED PRESS OPERATOR Work Phone: [facility] 08-12-2024 13:44-0400 Heart rate 82 /min Delmi Aichholz LARGE SHEETFED PRESS OPERATOR Work Phone: [facility] 08-12-2024 13:44-0400 Respiratory rate 20 /min Delmi Aichholz LARGE SHEETFED PRESS OPERATOR Work Phone: [facility] 08-12-2024 13:44-0400 SaO2% (BldA) [Mass fraction] 94 % Delmi Aichholz LARGE SHEETFED PRESS OPERATOR Work Phone: [facility] 08-12-2024 13:44-0400 Systolic blood pressure 120 mm[Hg] Delmi Aichholz LARGE SHEETFED PRESS OPERATOR Work Phone: [facility] 07-16-2024 11:41-0400 Body mass index (BMI) [Ratio] 32.64 kg/m2 Delmi Aichholz LARGE SHEETFED PRESS OPERATOR Work Phone: [facility] 07-16-2024 11:41-0400 Body temperature 98.29 [degF] Delmi Love LARGE SHEETFED PRESS OPERATOR Work Phone: [facility] 07-16-2024 11:41-0400 Body weight 91.72 kg Delmi Perezz LARGE SHEETFED PRESS OPERATOR Work Phone: [facility] 07-16-2024 11:41-0400 Diastolic blood pressure 70 mm[Hg] Delmi Perezz LARGE SHEETFED PRESS OPERATOR Work Phone: [facility] 07-16-2024 11:41-0400 Heart rate 95 /min Delmilea Jonesholz LARGE SHEETFED PRESS OPERATOR Work Phone: [facility] 07-16-2024 11:41-0400 Respiratory rate 18 /min Delmi Perezz LARGE SHEETFED PRESS OPERATOR Work Phone: [facility] 07-16-2024 11:41-0400 SaO2% (BldA) [Mass fraction] 97 % Delmi Perezz LARGE SHEETFED PRESS OPERATOR Work Phone: [facility] 07-16-2024 11:41-0400 Systolic blood pressure 108 mm[Hg] Delmi Perezz LARGE SHEETFED PRESS OPERATOR Work Phone: [facility] 07-15-2024 10:32-0400 Body height 167.6 cm Darien Rusher DPM Work Phone: [facility] 07-15-2024 10:32-0400 Body mass index (BMI) [Ratio] 32.01 kg/m2 Darien Rusher DPM Work Phone: [facility] 07-15-2024 10:32-0400 Body weight 89.95 kg Darien Rusher DPM Work Phone: [facility] 05-28-2024 10:24-0500 Body height 167.6 cm Kunal Ortiz LARGE SHEETFED PRESS OPERATOR Work Phone: [facility] 05-28-2024 10:24-0500 Body mass index (BMI) [Ratio] 32.01 kg/m2 Kunal Ortzi LARGE SHEETFED PRESS OPERATOR Work Phone: [facility] 05-28-2024 10:24-0500 Body temperature 96.3 [degF] Kunal Ortiz LARGE SHEETFED PRESS OPERATOR Work Phone: [facility] 05-28-2024 10:24-0500 Body weight 89.95 kg Kunal Ortiz LARGE SHEETFED PRESS OPERATOR Work Phone: [facility] 05-28-2024 10:24-0500 Diastolic blood pressure 68 mm[Hg] Kunal Ortiz LARGE SHEETFED PRESS OPERATOR Work Phone: [facility] 05-28-2024 10:24-0500 Heart rate 67 /min Kunal Ortiz LARGE SHEETFED PRESS OPERATOR Work Phone: [facility] 05-28-2024 10:24-0500 Respiratory rate 16 /min Kunal Ortiz LARGE SHEETFED PRESS OPERATOR Work Phone: [facility] 05-28-2024 10:24-0500 SaO2% (BldA) [Mass fraction] 95 % Kunal Ortiz LARGE SHEETFED PRESS OPERATOR Work Phone: [facility] 05-28-2024 10:24-0500 Systolic blood pressure 122 mm[Hg] Kunal Ortiz LARGE SHEETFED PRESS OPERATOR Work Phone: [facility] 05-01-2024 11:20-0500 Diastolic blood pressure 60 mm[Hg] Kunal Ortiz LARGE SHEETFED PRESS OPERATOR-C Work Phone: [facility] 05-01-2024 11:20-0500 Heart rate 70 /min Kunal Ortiz LARGE SHEETFED PRESS OPERATOR-C Work Phone: [facility] 05-01-2024 11:20-0500 Respiratory rate 16 /min Kunal Ortiz LARGE SHEETFED PRESS OPERATOR-C Work Phone: [facility] 05-01-2024 11:20-0500 SaO2% (BldA) [Mass fraction] 99 % Kunal Ortiz LARGE SHEETFED PRESS OPERATOR-C Work Phone: [facility] 05-01-2024 11:20-0500 Systolic blood pressure 112 mm[Hg] Kunal Petersonpatrick LARGE SHEETFED PRESS OPERATOR-C Work Phone: [facility] 05-01-2024 09:46-0500 Body height 167.64 cm Kunal Petersonpatrick LARGE SHEETFED PRESS OPERATOR-C Work Phone: [facility] 05-01-2024 09:46-0500 Body weight 86.18 kg Kunal Petersonpatrick LARGE SHEETFED PRESS OPERATOR-C Work Phone: [facility] 04-13-2024 11:28-0500 Body height 167.6 cm Delmilea Jonesholz LARGE SHEETFED PRESS OPERATOR Work Phone: [facility] 04-13-2024 11:28-0500 Body mass index (BMI) [Ratio] 31.64 kg/m2 Delmi Aichholz LARGE SHEETFED PRESS OPERATOR Work Phone: [facility] 04-13-2024 11:28-0500 Body temperature 97.59 [degF] Delmi Aichholz LARGE SHEETFED PRESS OPERATOR Work Phone: [facility] 04-13-2024 11:28-0500 Body weight 88.91 kg Delmi Aichholz LARGE SHEETFED PRESS OPERATOR Work Phone: [facility] 04-13-2024 11:28-0500 Diastolic blood pressure 78 mm[Hg] Delmi Aichholz LARGE SHEETFED PRESS OPERATOR Work Phone: [facility] 04-13-2024 11:28-0500 Heart rate 86 /min Delmi Aichholz LARGE SHEETFED PRESS OPERATOR Work Phone: [facility] 04-13-2024 11:28-0500 Respiratory rate 19 /min Delmi Aichholz LARGE SHEETFED PRESS OPERATOR Work Phone: [facility] 04-13-2024 11:28-0500 SaO2% (BldA) [Mass fraction] 95 % Delmi Aichholz LARGE SHEETFED PRESS OPERATOR Work Phone: [facility] 04-13-2024 11:28-0500 Systolic blood pressure 110 mm[Hg] Delmi Love LARGE SHEETFED PRESS OPERATOR Work Phone: [facility] 02-27-2024 10:36-0500 Body height 167.6 cm Kunal Ortiz LARGE SHEETFED PRESS OPERATOR Work Phone: [facility] 02-27-2024 10:36-0500 Body mass index (BMI) [Ratio] 31.51 kg/m2 Kunal Ortiz LARGE SHEETFED PRESS OPERATOR Work Phone: [facility] 02-27-2024 10:36-0500 Body temperature 97.59 [degF] Kunal Ortiz LARGE SHEETFED PRESS OPERATOR Work Phone: [facility] 02-27-2024 10:36-0500 Body weight 88.54 kg Kunal Ortiz LARGE SHEETFED PRESS OPERATOR Work Phone: [facility] 02-27-2024 10:36-0500 Diastolic blood pressure 64 mm[Hg] Kunal Ortiz LARGE SHEETFED PRESS OPERATOR Work Phone: [facility] 02-27-2024 10:36-0500 Heart rate 78 /min Kunal Ortiz LARGE SHEETFED PRESS OPERATOR Work Phone: [facility] 02-27-2024 10:36-0500 Respiratory rate 16 /min Kunal Ortiz LARGE SHEETFED PRESS OPERATOR Work Phone: [facility] 02-27-2024 10:36-0500 Systolic blood pressure 128 mm[Hg] Kunal Ortiz LARGE SHEETFED PRESS OPERATOR Work Phone: [facility] 02-13-2024 13:56-0400 Body height 167.6 cm Ben Roe DPM Work Phone: [facility] 02-13-2024 13:56-0400 Body mass index (BMI) [Ratio] 32.28 kg/m2 Ben Roe DPM Work Phone: [facility] 02-13-2024 13:56-0400 Body weight 90.72 kg Ben Roe DPM Work Phone: [facility] 02-13-2024 13:56-0400 Diastolic blood pressure 80 mm[Hg] eBn Roe DPM Work Phone: [facility] 02-13-2024 13:56-0400 Heart rate 78 /min Ben Roe DPM Work Phone: [facility] 02-13-2024 13:56-0400 Systolic blood pressure 129 mm[Hg] Ben Roe DPM Work Phone: [facility] 12-19-2023 11:36-0400 Body height 167.6 cm Kunal Ortiz LARGE SHEETFED PRESS OPERATOR Work Phone: [facility] 12-19-2023 11:36-0400 Body mass index (BMI) [Ratio] 31.64 kg/m2 Kunal Ortiz LARGE SHEETFED PRESS OPERATOR Work Phone: [facility] 12-19-2023 11:36-0400 Body temperature 97.59 [degF] Kunal Ortiz LARGE SHEETFED PRESS OPERATOR Work Phone: [facility] 12-19-2023 11:36-0400 Body weight 88.91 kg Kunal Ortiz LARGE SHEETFED PRESS OPERATOR Work Phone: [facility] 12-19-2023 11:36-0400 Diastolic blood pressure 68 mm[Hg] Kunal Ortiz LARGE SHEETFED PRESS OPERATOR Work Phone: [facility] 12-19-2023 11:36-0400 Heart rate 75 /min Kunal Ortiz LARGE SHEETFED PRESS OPERATOR Work Phone: [facility] Comment on above: 95% 02 12-19-2023 11:36-0400 Systolic blood pressure 118 mm[Hg] Kunal Ortiz LARGE SHEETFED PRESS OPERATOR Work Phone: [facility] 11-26-2021 11:15-0400 Body height 167.64 cm Yuliet Perez Other [email or web address] Other 11-26-2021 11:15-0400 Body mass index (BMI) [Ratio] 30.66 kg/m2 Yuliet Perez Other [email or web address] Other 11-26-2021 11:15-0400 Body temperature 98 [degF] Yuliet Perez Other [email or web address] Other 11-26-2021 11:15-0400 Body weight 86.18 kg Yuliet Perez Other [email or web address] Other 11-26-2021 11:15-0400 Diastolic blood pressure 61 mm[Hg] Yuliet Perez Other [email or web address] Other 11-26-2021 11:15-0400 SaO2% (BldA) [Mass fraction] 98 % Yuliet Perez Other [email or web address] Other 11-26-2021 11:15-0400 Systolic blood pressure 117 mm[Hg] Yuliet Perez Other [email or web address] Other Encounters Encounter Date Encounter Type Care Provider Facility Start: 11-13-2024 End: 11-13-2024 ambulatory GAURAV SCHMITT [facility] Start: 11-10-2024 End: 11-10-2024 Refill Delmi Love LARGE SHEETFED PRESS OPERATOR Work Phone: [facility] Comment on above: Recurrent UTI (urina ry tract infection) (Primary Dx) Start: 11-09-2024 End: 11-09-2024 Office outpatient visit 25 minutes Delmi Love LARGE SHEETFED PRESS OPERATOR Work Phone: [facility] Comment on above: Recurrent UTI (urina ry tract infection) (Primary Dx); Numbness and tingling of both feet; Spondylosis of cervical spine; Tobacco dependence; Other fatigue; Cigarette nicotine dependence without complication; Lung cancer screening declined by patient Start: 11-09-2024 End: 11-09-2024 ambulatory DELMI LOVE Not Available Start: 11-09-2024 End: 11-09-2024 Bamboo flowsheet Delmi Kate LARGE SHEETFED PRESS OPERATOR Work Phone: [facility] Start: 11-09-2024 End: 11-09-2024 Bamboo flowsheet Delmi Kate LARGE SHEETFED PRESS OPERATOR Work Phone: [facility] Start: 11-09-2024 End: 11-09-2024 Telephone encounter Delmi Kate LARGE SHEETFED PRESS OPERATOR Work Phone: [facility] Start: 11-04-2024 End: 11-04-2024 Departed Referred Natalee Wang LEAN CONSULTANT -[facility] Work Phone: Start: 11-04-2024 End: 11-04-2024 ambulatory Kunal Ortiz LARGE SHEETFED PRESS OPERATOR-C Work Phone: [facility] Work Phone: Start: 11-04-2024 End: 11-04-2024 Patient encounter procedure Natalee Wang LEAN CONSULTANT [facility] Work Phone: Start: 11-02-2024 End: 11-02-2024 Refill Delmi Love LARGE SHEETFED PRESS OPERATOR Work Phone: [facility] Comment [...] 10-20-2024 End: 10-20-2024 Telephone encounter Delmi Love LARGE SHEETFED PRESS OPERATOR Work Phone: [facility] Start: 10-19-2024 End: 10-19-2024 ambulatory GAURAV SCHMITT [facility] Start: 10-14-2024 End: 10-14-2024 ambulatory DARIEN BLANCA Not Available Start: 10-14-2024 End: 10-14-2024 Office outpatient visit 25 minutes Darien Blanca DPM Work Phone: [facility] Comment on above: Neuropathy, idiopath ic (Primary Dx); Peripheral vascular disease; Smoker; Corns and callosities; Left foot pain; Neuritis Start: 10-13-2024 End: 10-13-2024 Patient encounter procedure Jamia Guevara MD Work Phone: [facility] Comment on above: Numbness (Primary Dx ); Paresthesias; Peripheral polyneuropathy Start: 10-13-2024 End: 10-13-2024 ambulatory JAMIA GUEVARA Not Available Start: 09-29-2024 End: 09-29-2024 Orders Only Delmi Love LARGE SHEETFED PRESS OPERATOR Work Phone: [facility] Comment on above: Numbness and tinglin g of both feet (Primary Dx); Spondylosis of cervical spine; Acquired spondylolisthesis of lumbosacral region Start: 09-28-2024 End: 09-28-2024 ambulatory DELMI LOVE Not Available Start: 09-25-2024 End: 09-25-2024 Telephone encounter Jamia Guevara MD Work Phone: [facility] Start: 09-24-2024 End: 09-24-2024 Office outpatient visit 25 minutes Delmi Love LARGE SHEETFED PRESS OPERATOR Work Phone: [facility] Comment on above: Numbness and tinglin g of both feet (Primary Dx); Tobacco dependence; Other fatigue; Hypothyroidism, unspecified type ; Lumbar back pain; Neck pain; Other chest pain Start: 09-24-2024 End: 09-24-2024 ambulatory DELMI LOVE Not Available Start: 09-24-2024 End: 09-24-2024 Bamboo flowsheet Delmi Love LARGE SHEETFED PRESS OPERATOR Work Phone: [facility] Start: 09-24-2024 End: 09-24-2024 Bamboo flowsheet Delmi Kate LARGE SHEETFED PRESS OPERATOR Work Phone: [facility] Start: 09-14-2024 End: 09-14-2024 Refill Delmi Chrisz LARGE SHEETFED PRESS OPERATOR Work Phone: [facility] Comment on above: UTI symptoms (Primar y Dx) Start: 09-10-2024 End: 09-10-2024 Departed Referred Yuliet Perez LEAN CONSULTANT Work Phone: [facility] [place] Work Phone: Start: 09-10-2024 End: 09-10-2024 ambulatory Yuliet Perez [facility] Work Phone: Start: 09-10-2024 End: 09-10-2024 Patient encounter procedure [facility] Work Phone: Start: 08-26-2024 End: 08-27-2024 Clinisync Result Encounter Delmi Kate LARGE SHEETFED PRESS OPERATOR Work Phone: [facility] Unsolicited Start: 08-26-2024 End: 08-27-2024 Clinisync Result Encounter Delmi Chrisz LARGE SHEETFED PRESS OPERATOR Work Phone: [facility] Unsolicited Start: 08-25-2024 End: 08-25-2024 Orders Only Delmi Kate LARGE SHEETFED PRESS OPERATOR Work Phone: [facility] Comment on above: Vitamin D deficiency (Primary Dx) Start: 08-19-2024 End: 08-19-2024 Refill Delmi Chrisz LARGE SHEETFED PRESS OPERATOR Work Phone: [facility] Comment on above: Vitamin D deficiency (Primary Dx) Start: 08-18-2024 End: 08-18-2024 ambulatory VENANCIO GANT [facility] Start: 08-18-2024 End: 08-18-2024 Office outpatient new 45 minutes Mike Gant MD Work Phone: [facility] Comment on above: Lower extremity tiara a (Primary Dx); Dyslipidemia Start: 08-17-2024 End: 08-17-2024 Telephone encounter Shelli Francis ABRIL [facility] Start: 08-12-2024 End: 08-12-2024 Bamboo flowsheet Delmi Aichholz LARGE SHEETFED PRESS OPERATOR Work Phone: [facility] Start: 08-12-2024 End: 08-12-2024 Bamboo flowsheet Delmi Aichholz LARGE SHEETFED PRESS OPERATOR Work Phone: [facility] Start: 08-12-2024 End: 08-12-2024 Office outpatient visit 25 minutes Delmi Aicfernandoz LARGE SHEETFED PRESS OPERATOR Work Phone: [facility] Comment on above: Other fatigue (Prima ry Dx); Hypothyroidism, unspecified type (CMS/HCC); Acute otitis externa of left ear, unspecified type; Mixed hyperlipidemia (CMS/HCC); Tobacco dependence; Hyperlipidemia, unspecified hyperlipidemia type (CMS/HCC); Numbness and tingling of both feet; Vitamin D deficiency; Family history of coronary artery disease Start: 08-12-2024 End: 08-12-2024 ambulatory DELMI AICHHOLZ Not Available Start: 08-12-2024 ambulatory [facility] Start: 08-11-2024 End: 08-11-2024 Refill Delmi Aichholz LARGE SHEETFED PRESS OPERATOR Work Phone: [facility] Comment on above: Hyperlipidemia, unsp ecified hyperlipidemia type (CMS/HCC) Start: 08-05-2024 End: 08-05-2024 Refill Delmi Aichholz LARGE SHEETFED PRESS OPERATOR Work Phone: [facility] Comment on above: Hypothyroidism, unsp ecified type (CMS/HCC) Start: 07-23-2024 End: 07-24-2024 Refill Delmi Aichholz LARGE SHEETFED PRESS OPERATOR Work Phone: [facility] Comment on above: Mixed hyperlipidemia (CMS/HCC) Start: 07-21-2024 End: 07-21-2024 Telephone encounter Darien Blanca DPM Work Phone: [facility] Start: 07-20-2024 End: 07-20-2024 ambulatory DARIEN S RUSHER Not Available Start: 07-16-2024 End: 07-17-2024 Telephone encounter Darien Perry Rusher DPM Work Phone: [facility] Comment on above: Advice Only (Rx Frazier ge Request) Start: 07-16-2024 End: 07-16-2024 Office outpatient visit 10 minutes Delmi Love LARGE SHEETFED PRESS OPERATOR Work Phone: [facility] Comment on above: Acute otitis externa of left ear, unspecified type (Primary Dx); Tobacco dependence Start: 07-16-2024 End: 07-16-2024 ambulatory DELMI LOVE Not Available Start: 07-15-2024 End: 07-15-2024 Bamboo flowsheet Darien S Rusher DPM Work Phone: [facility] Start: 07-15-2024 End: 07-15-2024 Bamboo flowsheet Darien S Rusher DPM Work Phone: [facility] Start: 07-15-2024 End: 07-15-2024 Office outpatient visit 25 minutes Darien S Rusher DPM Work Phone: [facility] Comment on above: Neuropathy, idiopath ic (Primary Dx); Neuritis; Pain in both feet; Peripheral vascular disease (CMS/HCC); Smoker Start: 07-15-2024 End: 07-15-2024 ambulatory DARIEN S RUSHER Not Available Start: 06-07-2024 End: 06-07-2024 Orders Only Delmi Love LARGE SHEETFED PRESS OPERATOR Work Phone: [facility] Comment on above: Prediabetes (Primary Dx); Mixed hyperlipidemia (CMS/HCC); Tobacco dependence Vitamin D deficiency (Primary Dx) Start: 06-05-2024 End: 06-05-2024 Clinisync Result Encounter Kunal Ortiz LARGE SHEETFED PRESS OPERATOR Work Phone: [facility] Department Unsolicited Start: 06-05-2024 End: 06-05-2024 Clinisync Result Encounter Kunal Ortiz LARGE SHEETFED PRESS OPERATOR Work Phone: [facility] Department Unsolicited Start: 06-02-2024 End: 06-02-[address] [facility] Start: 05-28-2024 End: 05-28-2024 Bamboo flowsheet Kunal Ortiz LARGE SHEETFED PRESS OPERATOR Work Phone: [facility] Start: 05-28-2024 End: 05-28-2024 Bamboo flowsheet Kunal Ortiz LARGE SHEETFED PRESS OPERATOR Work Phone: [facility] Start: 05-28-2024 End: 05-28-2024 Office outpatient visit 15 minutes Kunal Ortiz LARGE SHEETFED PRESS OPERATOR Work Phone: [facility] Comment [...] Start: 05-01-2024 Non-patient / Non-visit Jessica Ortiz LARGE SHEETFED PRESS OPERATOR-C Work Phone: [facility] Work Phone: Start: 05-01-2024 End: 05-01-2024 Admission to same day surgery center Kunal Ortiz LARGE SHEETFED PRESS OPERATOR-C Work Phone: [facility] Work Phone: Start: 05-01-2024 End: 05-01-2024 ambulatory Kunal Ortiz LARGE SHEETFED PRESS OPERATOR-C Work Phone: [facility] Work Phone: Start: 04-21-2024 End: 04-21-2024 Orders Only Kunal Ortiz LARGE SHEETFED PRESS OPERATOR Work Phone: [facility] Comment on above: Age-related osteopor osis without current pathological fracture (CMS/HCC) (Primary Dx) Start: 04-13-2024 End: 04-13-2024 Office outpatient visit 15 minutes Delmi Love LARGE SHEETFED PRESS OPERATOR Work Phone: [facility] Comment on above: Acute non-recurrent maxillary sinusitis (Primary Dx); Tobacco dependence; Acute URI Start: 04-13-2024 End: 04-13-2024 ambulatory DELMI LOVE Not Available Start: 03-26-2024 End: 03-26-2024 Orders Only Kunal Ortiz LARGE SHEETFED PRESS OPERATOR Work Phone: [facility] Comment [...] End: 03-19-2024 Clinisync Result Encounter Kunal Ortiz LARGE SHEETFED PRESS OPERATOR Work Phone: [facility] External Department Unsolicited Start: 03-19-2024 End: 03-19-2024 Clinisync Result Encounter Kunal Ortiz LARGE SHEETFED PRESS OPERATOR Work Phone: [facility] External Department Unsolicited Start: 02-27-2024 End: 02-27-2024 Bamboo flowsheet Kunal Solorzanok LARGE SHEETFED PRESS OPERATOR Work Phone: [facility] Start: 02-27-2024 End: 02-27-2024 Bamboo flowsheet Kunal Solorzanok LARGE SHEETFED PRESS OPERATOR Work Phone: [facility] Start: 02-27-2024 End: 02-27-2024 Patient encounter procedure Kunal Solorzanok LARGE SHEETFED PRESS OPERATOR Work Phone: [facility] Comment on above: Screening for malign ant neoplasm of colon (Primary Dx); Prediabetes; Encounter for screening mammogram for malignant neoplasm of breast; Encounter for osteoporosis screening in asymptomatic postmenopausal patient; Need for immunization against influenza Start: 02-27-2024 End: 02-27-2024 ambulatory KUNAL SOLORZANOK Not Available Start: 02-24-2024 End: 02-24-2024 Orders Only Kunal Solorzanok LARGE SHEETFED PRESS OPERATOR Work Phone: [facility] Comment on above: Mixed hyperlipidemia (CMS/HCC) (Primary Dx) Start: 02-18-2024 End: 02-18-2024 Clinisync Result Encounter Kunal Solorzanok LARGE SHEETFED PRESS OPERATOR Work Phone: [facility] Department Unsolicited Start: 02-18-2024 End: 02-18-2024 Clinisync Result Encounter Kunal Solorzanok LARGE SHEETFED PRESS OPERATOR Work Phone: [facility] External Department Unsolicited Start: 02-17-2024 End: 02-17-2024 Refill Kunal Solorzanok LARGE SHEETFED PRESS OPERATOR Work Phone: [facility] Comment [...] Start: 02-11-2024 End: 02-11-2024 Refill Kunal Smithtrick LARGE SHEETFED PRESS OPERATOR Work Phone: [facility] Comment on above: Hyperlipidemia, unsp ecified hyperlipidemia type (CMS/HCC); Hypothyroidism, unspecified type (CMS/HCC) Start: 01-22-2024 End: 01-22-2024 Clinisync Result Encounter Kunal Ortiz LARGE SHEETFED PRESS OPERATOR Work Phone: [facility] Department Unsolicited Start: 01-22-2024 End: 01-22-2024 Clinisync Result Encounter Kunal Ortiz LARGE SHEETFED PRESS OPERATOR Work Phone: [facility] External Department Unsolicited Start: 12-19-2023 End: 12-19-2023 Bamboo flowsheet Kunal Ortiz LARGE SHEETFED PRESS OPERATOR Work Phone: [facility] Start: 12-19-2023 End: 12-19-2023 Bamboo flowsheet Kunal Ortiz LARGE SHEETFED PRESS OPERATOR Work Phone: [facility] Start: 12-19-2023 End: 12-19-2023 Office outpatient visit 15 minutes Kunal Ortiz LARGE SHEETFED PRESS OPERATOR Work Phone: [facility] Comment on above: Prediabetes (Primary Dx); Hypertriglyceridemia (CMS/HCC); Hypothyroidism, unspecified type (CMS/HCC); Impacted cerumen of left ear Start: 12-19-2023 End: 12-19-2023 ambulatory KUNAL ORTIZ Not Available Start: 12-04-2023 End: 12-04-2023 ambulatory JULIO CESAR [facility] Start: 11-20-2023 End: 11-20-2023 ambulatory KUNAL ORTIZ Not Available Start: 11-18-2023 End: 11-18-2023 ambulatory KUNAL ORTIZ Not Available Start: 05-24-2023 Chart abstracting Cliff castillo PA Work Phone: [facility] Start: 05-24-2023 End: 05-24-2023 Postop follow up visit related to original px Cliff Hong PA Work Phone: [facility] Comment on above: S/P carpal tunnel re lease (Primary Dx); Right hand pain; Arthritis of carpometacarpal (CMC) joint of right thumb Start: 07-03-2022 End: 07-04-2022 ambulatory SHAIKH Lorelei ENGEL Facility:[facility] Start: 03-29-2022 End: 03-30-[address] JOSE DAVID GODWIN Facility:[facility] Start: 02-06-2022 End: 02-07-[address] JOSE DAVID GODWIN Facility:[facility] Start: 11-26-2021 End: 11-26-2021 ambulatory Yuliet Perez Other [email or web address] Other Start: 11-26-2021 Office outpatient ne w 20 minutes Yuliet Perez [facility] [place] Start: 11-26-2021 End: 11-26-2021 Departed Referred DO Jose David Godwin Work Phone: [facility] [place] Start: 09-13-2021 End: 09-13-2021 Patient encounter procedure DO Jose David Godwin Work Phone: [facility] [address] Procedures Date Procedure Procedure Detail Performing Clinician Start: 11-01-2024 NM UNA PERF SPECT RE ST STR Generic External Data Provider Start: 10-20-2024 ALL LIPID PROFILE (FASTING) Generic External Data Provider Start: 05-29-2025 Urine culture Kunal Solorzanok LARGE SHEETFED PRESS OPERATOR-C Work Phone: Start: 08-26-2024 ECG 12-LEAD Delmi read LARGE SHEETFED PRESS OPERATOR Work Phone: Start: 08-26-2024 ALL CBC WITH AUTO DIFF Delmi Love LARGE SHEETFED PRESS OPERATOR Work Phone: Start: 07-15-2024 End: 07-15-2024 Radex foot complete minimum 3 views Darien Blanca DPM Work Phone: Start: 06-05-2024 [facility] CALCIUM Kunal Christian dee LARGE SHEETFED PRESS OPERATOR Work Phone: Start: 05-25-2024 Computerized ophthal alma [...] Phone: Start: 05-01-2024 Colonoscopy Kunal Christian dee LARGE SHEETFED PRESS OPERATOR-C Work Phone: Start: 03-19-2024 MLR HEMOGLOBIN A1C Marian drummond Diana LARGE SHEETFED PRESS OPERATOR Work Phone: Start: 02-18-2024 ALL LIPID PROFILE (FASTING) Kunal Diana LARGE SHEETFED PRESS OPERATOR Work Phone: Start: 01-22-2024 TSH W/REFLEX T4 Serjio jonny Ortiz LARGE SHEETFED PRESS OPERATOR Work Phone: Start: 04-01-2023 Mammography Cliff castillo [...] 05-04-2034 Screening for malignant neoplasm of colon [facility] Start: 03-18-2027 Screening for malignant neoplasm of colon [facility] Start: 11-09-2025 Screening for malignant neoplasm of lung Lung Cancer Screening Shared Decision Making [facility] Comment on above: Postponed from 1950 (Patient Refus ed) Start: 10-20-2025 End: 10-20-2025 Patient encounter procedure [facility] Start: 08-18-2025 Adult BMI Screening Adult BMI Screening [facility] Start: 08-18-2025 Tobacco Screening Tobacco Screening [facility] Start: 03-23-2025 End: 03-23-2025 Patient encounter procedure [facility] Start: 02-26-2025 Medicare Annual Wellness (AWV) Medicare Annual Wellness (AWV) [facility] Start: 02-16-2025 End: 02-16-2025 Patient encounter procedure 02/16/2025 1:10 PM EST Office Visit [facility] [address] [place] [address] Mike Gant MD [address] [place] [address] [facility] Start: 02-09-2025 End: 02-09-2025 Patient encounter procedure 02/09/2025 2:00 PM EDT Office Visit [facility] [address] [place] [phone] Delmi Love, JADE [address] [place] [phone] [facility] Start: 01-20-2025 End: 01-20-2025 Patient encounter procedure [facility] NB OPHT Start: 12-14-2024 Influenza vaccination [facility] Start: 11-26-2024 End: 11-26-2024 Patient encounter procedure [facility] Start: 11-23-2024 End: 11-09-2025 Bacteria identified in Urine by Culture Urine culture (clean catch) Microbiology Routine Recurrent UTI (urinary tract infection) Expected: 11/23/2024 (Approximate), Expires: 11/09/2025 [facility] Comment on above: Expected: 11/23/2024 (Approximate), Expi res: 11/09/2025 Start: 11-23-2024 End: 11-09-2025 Urinalysis complete panel - Urine Urinalysis with reflex microscopic (clean catch) Lab Routine Recurrent UTI (urinary tract infection) Expected: 11/23/2024 (Approximate), Expires: 11/09/2025 [facility] Work Phone: Comment on above: Expected: 11/23/2024 (Approximate), Expi res: 11/09/2025 Start: 11-09-2024 End: 11-09-2024 Patient encounter procedure [facility] Comment on above: Numbness and tingling of both feet (Prim ramón Dx); Spondylosis of cervical spine; Tobacco dependence; Other fatigue Start: 11-04-2024 Urine culture [facility] Start: 11-04-2024 Bacteria identified in Urine by Culture Urine Culture [facility] Start: 10-14-2024 End: 10-14-2024 Patient encounter procedure 10/14/2024 10:30 AM EDT Office Visit [facility] [address] [facility] [phone] Darien Blanca DPM [address] [place], [place] [phone] [facility] Start: 10-13-2024 End: 10-13-2024 Patient encounter procedure 10/13/2024 12:00 PM EDT Procedure Visit [facility] [address] [place] [address] Jamia Guevara MD [address] [facility] [address] [place] [address] [facility] Start: 09-29-2024 End: 09-29-2025 MR Cervical spine WO contrast MR cervical spine wo contrast Imaging Routine Spondylosis of cervical spine Expected: 09/29/2024 (Approximate), Expires: 09/29/2025 [facility] Comment on above: Expected: 09/29/2024 (Approximate), Expi res: 09/29/2025 Start: 09-29-2024 End: 09-29-2025 MR Lumbar spine WO contrast MR lumbar spine wo contrast Imaging Routine Acquired spondylolisthesis of lumbosacral region Expected: 09/29/2024, Expires: 09/29/2025 [facility] Work Phone: Comment on above: Expected: 09/29/2024, Expires: Start: 09-29-2024 End: 09-29-2025 XR Lumbar spine Views W flexion and W extension XR lumbar spine 4+ views w flexion extension Imaging Routine Acquired spondylolisthesis of lumbosacral region Expected: 09/29/2024, Expires: 09/29/2025 [facility] Comment on above: Expected: 09/29/2024, Expires: Start: 09-24-2024 End: 09-24-2024 Patient encounter procedure [facility] Comment on above: Tobacco dependence (Primary Dx); Other fatigue; Hypothyroidism, unspecified type Start: 09-24-2024 End: 09-24-2025 EMG AND NERVE CONDUCTION STUDY EMG AND NERVE CONDUCTION STUDY Neurology Routine Numbness and tingling of both feet Lumbar back pain Expected: 09/24/2024 (Approximate), Expires: 09/24/2025 [facility] Comment on above: Expected: 09/24/2024 (Approximate), Expi [...] Expected: 09/24/2024, Expires: Start: 09-10-2024 Urine culture [facility] Start: 09-10-2024 Bacteria identified in Urine by Culture Urine Culture [facility] Start: 08-25-2024 End: 08-25-2025 25-hydroxyvitamin D3 [Mass/volume] in Serum or Plasma Vitamin D 25 hydroxy Lab Routine Vitamin D deficiency Expected: 08/25/2024 (Approximate), Expires: 08/25/2025 [facility] Work Phone: Comment on above: Expected: 08/25/2024 (Approximate), Expi res: 08/25/2025 Start: 08-25-2024 End: 08-25-2024 Professional / ancillary services management 08/25/2024 11:30 AM EDT Ancillary Procedure [facility] [address] [place] [phone] [facility] Start: 08-18-2024 End: 08-18-2024 Patient encounter procedure 08/18/2024 3:50 PM EDT Office Visit [facility] [address] [place] [phone] Mike Gant MD [address] [place] [address] [facility] Start: 08-18-2024 End: [...] both feet Expected: 08/12/2024 (Approximate), Expires: 08/12/2025 [facility] Comment on above: Expected: 08/12/2024 (Approximate), Expi res: 08/12/2025 Start: 08-12-2024 End: 08-12-2025 Cobalamin (Vitamin B12) [Mass/volume] in Serum or Plasma Vitamin B12 Lab Routine Other fatigue Numbness and tingling of both feet Expected: 08/12/2024 (Approximate), Expires: 08/12/2025 [facility] Comment on above: Expected: 08/12/2024 (Approximate), Expi res: 08/12/2025 Start: 08-12-2024 End: 08-12-2025 ECG 12 lead ECG 12 lead ECG Routine Tobacco dependence Hyperlipidemia, unspecified hyperlipidemia type (CMS/HCC) Other fatigue Family history of coronary artery disease Expected: 08/12/2024 (Approximate), Expires: 08/12/2025 [facility] Comment on above: Expected: 08/12/2024 (Approximate), Expi res: 08/12/2025 Start: 08-12-2024 End: 08-12-2025 Iron and Iron binding capacity panel - Serum or Plasma Iron level Lab Routine Other fatigue Expected: 08/12/2024 (Approximate), Expires: 08/12/2025 [facility] Comment on above: Expected: 08/12/2024 (Approximate), Expi res: 08/12/2025 Start: 08-12-2024 End: 08-12-2025 Thyrotropin [Units/volume] in Serum or Plasma TSH Lab Routine Hypothyroidism, unspecified type (CMS/HCC) Expected: 08/12/2024 (Approximate), Expires: 08/12/2025 [facility] Work Phone: Comment on above: Expected: 08/12/2024 (Approximate), Expi res: 08/12/2025 Start: 08-12-2024 End: 08-12-2025 Thyroxine (T4) free [Mass/volume] in Serum or Plasma T4, free Lab Routine Hypothyroidism, unspecified type (CMS/HCC) Expected: 08/12/2024 (Approximate), Expires: 08/12/2025 [facility] Comment on above: Expected: 08/12/2024 (Approximate), Expi res: 08/12/2025 Start: 08-12-2024 End: 08-12-2025 Triiodothyronine (T3) Free [Mass/volume] in Serum or Plasma T3, free Lab Routine Hypothyroidism, unspecified type (CMS/HCC) Expected: 08/12/2024 (Approximate), Expires: 08/12/2025 [facility] Comment on above: Expected: 08/12/2024 (Approximate), Expi [...] D deficiency Expected: 07/30/2024 (Approximate), Expires: 06/07/2025 [facility] Work Phone: Comment on above: Expected: 07/30/2024 (Approximate), Expi res: 06/07/2025 Start: 07-20-2024 End: 07-20-2024 Professional / ancillary services management 07/20/2024 11:30 AM EDT Ancillary Procedure [facility] [address] [place] [address] [facility] Start: 07-16-2024 End: 07-16-2024 Patient encounter procedure 07/16/2024 11:45 AM EDT Office Visit [facility] [address] [place] [phone] Delmi Love, LARGE SHEETFED PRESS OPERATOR [address] [place] [phone] [facility] Start: 07-15-2024 End: 07-15-2024 Patient encounter procedure 07/15/2024 10:15 AM EDT Office Visit [facility] [address] [place] [phone] Darien Blanca, DPM [address] [place] [address] Arrived [facility] Comment on above: Arrived Start: 06-07-2024 End: 06-07-2025 CBC W Auto Differential panel - Blood CBC and differential Lab Routine Tobacco dependence Expected: 06/07/2024 (Approximate), Expires: 06/07/2025 [facility] Comment on above: Expected: 06/07/2024 (Approximate), Expi res: 06/07/2025 Start: 06-07-2024 End: 06-07-2025 Comprehensive metabolic 2000 panel - Serum or Plasma Comprehensive metabolic panel Lab Routine Prediabetes Mixed hyperlipidemia (CMS/HCC) Expected: 06/07/2024 (Approximate), Expires: 06/07/2025 [facility] Comment on above: Expected: 06/07/2024 (Approximate), Expi res: 06/07/2025 Start: 06-07-2024 End: 06-07-2025 Microalbumin/Creatinine panel in random Urine Microalbumin / creatinine, urine ratio Lab Routine Prediabetes Expected: 06/07/2024 (Approximate), Expires: 06/07/2025 [facility] Work Phone: Comment on above: Expected: 06/07/2024 [...] OPHT Comment on above: Arrived Start: 05-01-2024 [facility] Start: 04-21-2024 End: 04-21-2025 25-hydroxyvitamin D3 [...] DERM [address] [place] [address] Benjamin Tan MD [address] [place] [address] [facility] Start: 02-27-2024 End: [...] asymptomatic postmenopausal patient Expected: 02/27/2024, Expires: 02/26/2025 [facility] Comment on above: Expected: 02/27/2024, Expires: Start: 02-27-2024 End: 02-26-2025 Hemoglobin A1c/Hemoglobin.total in Blood Hemoglobin A1c Lab Routine Prediabetes Expected: 02/27/2024 (Approximate), Expires: 02/26/2025 [facility] Comment on above: Expected: 02/27/2024 (Approximate), Expi res: 02/26/2025 Start: 02-27-2024 End: 02-26-2025 Noninvasive colorectal cancer DNA and occult blood screening [Presence] in Stool Cologuard colon cancer screening Lab Routine Screening for malignant neoplasm of colon Expected: 02/27/2024 (Approximate), Expires: 02/26/2025 [facility] Work Phone: Comment on above: Expected: 02/27/2024 (Approximate), Expi res: 02/26/2025 Start: 02-27-2024 End: 02-27-2024 Patient encounter procedure 02/27/2024 11:00 AM EST Office Visit [facility] [address] [place] [address] Kunal Ortiz, JADE [address] [place] [address] [facility] Start: 02-20-2024 Medicare Annual Wellness (AWV) Medicare Annual Wellness (AWV) [facility] Start: 02-13-2024 End: 02-13-2024 Patient encounter procedure 02/13/2024 1:50 PM EDT Office Visit [facility] [address] [facility] [address] [place] [phone] Ben Roe DPM [address] [facility] [address] [place] [address] [facility] Start: 01-10-2024 Screening for malignant neoplasm of colon Colorectal Cancer Screening [facility] Comment on above: Postponed from 1950 (Other Patient Reasons) Start: 01-02-2024 End: 12-18-2024 TSH W/REFLEX TO FT4 TSH W/REFLEX TO FT4 Lab Routine Hypothyroidism, unspecified type (CMS/HCC) Expected: 01/02/2024 (Approximate), Expires: 12/18/2024 [facility] Work Phone: Comment on above: Expected: 01/02/2024 (Approximate), Expi res: 12/18/2024 Start: 12-19-2023 End: 12-19-2023 Patient encounter procedure 12/19/2023 11:30 AM EDT Office Visit [facility] [address] [place] [phone] Kunal Ortiz NP [address] [place] [phone] Prediabetes (Primary Dx); Hypertriglyceridemia (CMS/HCC); Mixed hyperlipidemia (CMS/HCC) [facility] Comment on above: Prediabetes (Primary Dx); Hypertriglyceridemia (CMS/HCC); Mixed hyperlipidemia (CMS/HCC) Start: 12-15-2023 COVID-19 Vaccine ( season) COVID-19 Vaccine ( season) [facility] Start: 12-15-2023 Influenza vaccination Influenza Vaccine (#1) [facility] Start: 10-11-2023 End: 10-11-2023 Patient encounter procedure 10/11/2023 10:30 AM EDT Office Visit [facility] [address] [facility] [address] [place] [address] Cliff Hong PA [address] [place] [address] [facility] Start: 05-24-2023 End: 05-24-2023 Patient encounter procedure 05/24/2023 10:30 AM EST Office Visit [facility] [address] [facility] [address] [place] [phone] Cliff Hong PA [address] [facility] [address] [place] [address] [facility] Start: 11-13-2022 Adult BMI Screening Adult BMI Screening [facility] Start: 03-25-2022 Screening for malignant neoplasm of colon [facility] Start: 2016 Fall Risk Screening Fall Risk Screening [facility] Start: 2001 Administration of varicella zoster vaccine Zoster (Shingles) Vaccine (1 of 2) [facility] Start: 1970 DTaP,Tdap and Td Vaccines (1 - Tdap) DTaP,Tdap and Td Vaccines (1 - Tdap) [facility] Start: 1969 Adult BMI Follow Up Plan Adult BMI Follow Up Plan [facility] Start: 1963 Depression Screening Depression Screening [facility] Start: 1963 Tobacco Screening Tobacco Screening [facility] Start: 1950 Medicare Annual Wellness (AWV) Medicare Annual Wellness (AWV) [facility] Start: 1950 Screening for malignant neoplasm of colon [facility] Start: 1950 Screening for malignant neoplasm of lung Lung Cancer Screening Shared Decision Making [facility] Start: 1950 Tobacco Counseling Tobacco Counseling [facility] Patient Education Colon polyps H emorrhoids ED Diverticulosis Know your Meds [facility] Work Phone: US.doppler Extremity arteries - bilateral for physiologic artery study at rest and with exercise VASC US PVR/SEGMENTAL PRESSURES LOWER Imaging Routine Peripheral vascular disease (CMS/HCC) Ordered: 07/15/2024 [facility] Work Phone: Comment on above: Ordered: 07/15/2024 XR Hand - right 3 Views XR hand 3+ views right Imaging Routine Right hand pain 05/24/2023 10:32 AM EST [facility] Work Phone: Immunizations Immunization Date Immunization Notes Care Provider [facility] 02-27-2024 influenza, seasonal, injectable, preservative free Kunal Ortiz LARGE SHEETFED PRESS OPERATOR Work Phone: [facility] 02-27-2024 influenza virus vaccine, unspecified formulation [facility] 02-13-2023 Influenza, Seasonal, Quadrivalent, Adjuvanted Delmi Aichholz [employer]AR[employer] SHE[employer]ESS OPERATOR Work Phone: [facility] 02-13-2023 influenza virus vaccine, unspecified formulation Kunal Ortiz LARGE SHEETFED PRESS OPERATOR Work Phone: [facility] 02-07-2022 Influenza, Seasonal, Quadrivalent, Adjuvanted Delmi Aichholz LARGE SHEETFED PRESS OPERATOR Work Phone: [facility] 04-11-2021 Influenza, Seasonal, Quadrivalent, Adjuvanted Delmi Aichholz LAR[employer] SHEETFED PRESS OPERATOR Work Phone: [facility] 01-13-2020 influenza, injectabl e, quadrivalent, preservative free Delmi Aichholz LARGE SHEETFED PRESS OPERATOR Work Phone: [facility] 12-25-2019 influenza, injectabl e, quadrivalent, preservative free Delmi Aichholz LARGE SHEETFED PRESS OPERATOR Work Phone: [facility] 01-21-2019 pneumococcal polysaccharide vaccine, 23 valent Delmi Aichholz LARGE SHEETFED PRESS OPERATOR Work Phone: [facility] 01-21-2019 Seasonal, quadrivale nt, recombinant, injectable influenza vaccine, preservative free Delmi Aichholz LARGE SHEETFED PRESS OPERATOR Work Phone: [facility] 01-28-2018 Seasonal trivalent influenza vaccine, adjuvanted, preservative free Delmi Aichholz LARGE SHEETFED PRESS OPERATOR Work Phone: [facility] 03-14-2017 influenza, injectabl e, quadrivalent, preservative free Edlmi Aichholz LARGE SHEETFED PRESS OPERATOR Work Phone: [facility] 03-14-2017 pneumococcal conjuga te vaccine, 13 valent Delmi Aichholz LARGE SHEETFED PRESS OPERATOR Work Phone: [facility] 01-23-2016 seasonal influenza, intradermal, preservative free Delmi Love LARGE SHEETFED PRESS OPERATOR Work Phone: [facility] Payers Date Payer Category Payer Self-pay [id number] 2021 Medicare ANTHEM MEDICARE ADVANTAGE ANTHEM MEDICARE ADVANTAGE [id number] 2021-Present [id number] [place], [place] [id number] [id number] 2021 Medicare (Managed Care) [facility] [id number] 2019 Medicare HMO ANTHEM MEDICARE [id number] [id number] 1959 Medicare [id number] 1950 Unknown [id number] 2.16.840.1.378271.3.579. 2.593 1950 Unknown [id number] 2.16.840.1.463114.3.579. 2.593 1950 Unknown [id number] 2.16.840.1.434384.3.579. 2.593 1950 Unknown [id number] 2.16.840.1.360642.3.579. 2.1286 1950 Unknown [id number] 2.16.840.1.726825.3.579. 2.1286 1950 Unknown [id number] 2.16.840.1.537712.3.579. 2.1259 1950 Unknown [id number] 2.16.840.1.342448.3.579. 2.1259 1951 Unknown [id number] 2.16.840.1.952640.3.579. 2.1259 1950 Unknown [id number] 2.16.840.1.068430.3.579. 2.1259 1951 Unknown [id number] 2.16.840.1.315478.3.579. 2.1259 1951 Unknown [id number] 2.16.840.1.578986.3.579. 2.1259 1951 Unknown [id number] 2.16.840.1.406691.3.579. 2.1259 1951 Unknown [id number] 2.16.840.1.181242.3.579. 2.1259 1951 Unknown [id number] 2.16.840.1.929172.3.579. 2.1259 1951 Unknown [id number] 2.16.840.1.719420.3.579. 2.1259 1951 Unknown [id number] 2.16.840.1.318252.3.579. 2.1259 1951 Unknown [id number] 2.16.840.1.623421.3.579. 2.1258 1950 Unknown [id number] 2.16.840.1.080634.3.579. 2.1258 1951 Unknown [id number] 2.16.840.1.609170.3.579. 2.1258 1951 Unknown [id number] 2.16.840.1.574840.3.579. 2.1258 1951 Unknown [id number] 2.16.840.1.176328.3.579. 2.1258 1950 Unknown [id number] 2.16.840.1.383676.3.579. 2.1258 1951 Unknown [id number] 2.16.840.1.640497.3.579. 2.1258 1951 Unknown [id number] 2.16.840.1.433027.3.579. 2.1258 1950 Unknown [id number] 2.16.840.1.982517.3.579. 2.1258 1950 Unknown [id number] 2.16.840.1.182941.3.579. 2.1258 1950 Unknown [id number] 2.16.840.1.145685.3.579. 2.1259 Unknown [place] BC/BS 1 [id number] Unknown Other1 (STD) [id number] Unknown [id number] 2.16.840.1.899239.3.579. 2.531 Unknown [id number] 2.16.840.1.884043.3.579. 2.531 Unknown [id number] 2.16.840.1.805016.3.579. 2.531 Social History Date Type Detail Facility Tobacco smoking stat us NHIS Unknown if ever smoked [facility] Work Phone: Start: 1950 Sex Assigned At Female [facility] Start: 03-29-2023 End: 11-12-2023 Sex Assigned [...] to any clubs or organizations such as adventist groups, unions, fraternal or athletic groups, or [...] 05-01-2024 Tobacco smoking status NHIS Smoker (finding) [facility] Start: 05-01-2024 Sex Patient sex unknown (finding) [facility] How often do you nee d to have someone help you when you read instructions, pamphlets, or other written material from your doctor or pharmacy [SILS] Rarely [facility] Start: 08-11-2024 End: 08-18-2024 Alcoholic beverage intake Current drinker of alcohol (finding) [facility] Start: 05-16-2020 Alcohol Comment occassional [facility] Start: 11-18-2014 End: 09-11-2024 Sex Female (finding) [facility] Start: 06-11-2020 Gender identity Identifies as female gender (finding) [facility] Goals Date Patient Goal Desired Activity /State [...] limitations from per (more content not included)... [facility] 11-09-2024 History of Present illness Narrative Associated [...] on the importance of smoking cessation. Smoke: [id number] years, +family hx of lung cancer Declines [...] History: Diagnosis Date Actinic keratosis Cancer (HCC) 296901 Cataract CTS (carpal tunnel syndrome) 09/2022 Disease of thyroid gland 1985 Dry eyes Family history of thyroid problem High cholesterol Hx of breast cancer 2005 Personal history of other medical treatment thyroid Tear of meniscus of knee 673023 Trigger finger [id number] Visual impairment 02/2021 Past Surgical History: Procedure [...] of the risks of continued smoking: stroke, [place], all forms of cancer, lung disease, and [...] on the importance of smoking cessation. Smoke: 5rroH14 years, +family hx of lung cancer Declines wanting this completed Associated Problem(s): Cigarette nicotine dependence without complication The patient has been advised of the risks of continued smoking: stroke, [place], all forms of cancer, lung disease, and [...] MRI was denied documented in this encounter [facility] 11-09-2024 Telephone encounter Note Please call [facility], to see if they have report from her urine culture from last week Also I forgot to ask pt, for further evaluation of fatigue, does she want to do a sleep study for evaluation for sleep apnea?? [place] [facility] 11-09-2024 Miscellaneous Notes Please call [facility], to see if they have report from her urine culture from last week Also I forgot to ask pt, for further evaluation of fatigue, does she want to do a sleep study for evaluation for sleep apnea?? LA documented in this encounter [facility] 11-09-2024 Instructions Delmi Love NP - 11/09/2024 3:00 PM EDT Recheck urine sample in 2 weeks, get vit d level at that time as well documented in this encounter [facility] 10-20-2024 Telephone encounter Note Please let pt know that her insurance denied her MRI lumbar spine, she will need to do PT first, does she want to go that route? LA [facility] 10-20-2024 Miscellaneous Notes Please let pt know that her insurance denied her MRI lumbar spine, she will need to do PT first, does she want to go that route? LA documented in this encounter [facility] 10-19-2024 Note SUBJECTIVE Reason for Visit: Bertha [...] smoker, started wh (more content not included)... [facility] 10-14-2024 History of Present illness Narrative Images [...] had an appt. Yesterday with Neurology at [facility] in [place] (dr. Guevara)SS: 10). HPI Established patient returns to clinic for follow up evaluation of neuropathy. She was unable to afford met next. She has been taking alpha lipoic acid and mgkz-xmz-luqlzls vitamin-B complex with some mild improvement. She [...] History: Diagnosis Date Actinic keratosis Cancer (HCC) 118925 Cataract CTS (carpal tunnel syndrome) 09/2022 Disease of thyroid gland 1986 Dry eyes Family history of thyroid problem High cholesterol Hx of breast cancer 2006 Personal history of other medical treatment thyroid Tear of meniscus of knee 712298 Trigger finger 677856 Visual impairment 02/2021 Medications Current Outpatient Medications: [...] Today I spent over 30 minutes in kqkb-mw-onxm time discussing with the patient on eating [...] Darien Blanca DPM documented in this encounter [facility] 10-13-2024 History of Present illness Narrative [facility] Patient: Bertha Galarza [address], [address] , Sex: 1950, Female [place], [place] [address] Height: 165 cm Ref Phys: Aichholz fax [...] Doub=doublet; Fasc=fasciculation; FFE=full for effort; Fib=fibrillation; Myokym=myokymia; [place]=myotonic potential; N,0=normal; NR=no response; Polyph=polyphasia; Pos=positive [sharp] wave; RFU=rapidly firing units; Serr=serrated potential (2<phases<5); W&W=waxing and waning pattern INTERPRETATION: This study reveals ENMG evidence of a chronic, neuropathic, axonal, sensory > motor process affecting all lower extremity nerves tested. Needle examination demonstrates a lqcfpa-qm-yswxjawv gradient that is most suggestive of peripheral [...] plexopathy or radiculopathy. Jamia Guevara M.D. Diplomate, [place] [employer] and Neu[employer] (neurology, epilepsy, sleep medicine) Diplomate, [place] [employer] of Clinical Neurophysiology Diplomate, [place] [employer] of Preventive Medicine (clinical informatics) . documented in this encounter [facility] 09-25-2024 Telephone encounter Note Patient scheduled BLE on 10/13/24--no deductible--35.00 co-pay applied--patient is aware. [facility] 09-25-2024 Miscellaneous Notes Patient scheduled BLE on 10/13/24--no deductible--35.00 co-pay applied--patient is aware. documented in this encounter [facility] 09-24-2024 History of Present illness Narrative Associated [...] cholecalciferol (VITAMIN D-3) 125 mcg, Oral, Daily F-Xjutbepjpjln-Qqoit-B12-B6 (Metanx) 3-90.314-2-35 MG capsule 3 mg, Oral, [...] History: Diagnosis Date Actinic keratosis Cancer (HCC) 699167 Cataract Dry eyes Family history of thyroid [...] of the risks of continued smoking: stroke, [place], all forms of cancer, lung disease, and [...] of the risks of continued smoking: stroke, FL, all forms of cancer, lung disease, and . Options for quitting smoking include: cold turkey, hypnosis, acupuncture, nicotine replacement meds (gum, lozenges, and patches), Buproprion, and Varenicline. At this time pt is encouraged to evaluate their goals for wanting to quit smoking, and reach out to provider when ready to start this process documented in this encounter [facility] 09-24-2024 Instructions Delmi Love NP - 09/24/2024 3:20 PM EDT Xray both neck and low back EMG: both legs, [facility] Cardiology documented in this encounter [facility] 09-10-2024 Evaluation note Diagnosis Onset Date Resolution Acute cystitis with hematuria noneactive September 10, 2024 2 :08pm Dysuria noneactive November 04 6:24pm [facility] Work Phone: 1(264) 397-419805-29-2025 Evaluation note* Diagnosis Onset Date Resolution Status Admit Date Acute cystitis with hematuria noneac tive September 10, 2024 2:08pm UTI (urinary tract infection) acute November 04, 2024 6:24pm Dysuria noneactive November 04 6:24pm [facility] Work Phone: 1(839) 804-807005-06-2025 History of Present illness Narrative* Mike Gant MD - 08/18/2024 3:50 PM EDT Images from the original note were not included. [facility] [facility] [address] Subjective: Patient ID: Bertha Galarza is a 74 y.o. female. Chief Complaint Chief Complaint Patient presents with New Patient *3:52 pt called, they were at wrong building on [address], they are making their way to the office now, should be within the 15 minute angela period. Peripheral vascular disease F17.200 (ICD-10-CM) - Smoker History of Present Illness: Thank you for referring patient Bertha Galarza and for your trust in our practice. Bertha Galarza is a 74 y.o. pleasant female with history of DL, current smoker who presents today for consultation at the [facility] [place] due to bilateral feet numbness. 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] Resource Strain: Low Risk (11/12/2023) Received from [facility] Overall Financial Resource Strain (CARDIA) Difficulty of Paying Living Expenses: Not hard at all Food Insecurity: No Food Insecurity (11/12/2023) Received from [facility] Hunger Vital Sign Worried About Running Out of Food in the Last Year: Never true Ran Out of Food in the Last Year: Never true Transportation Needs: No Transportation Needs (11/12/2023) Received from [facility] PRAPARE - Transportation Lack of Transportation (Medical): No Lack of Transportation (Non-Medical): No Physical Activity: Inactive (11/12/2023) Received from [facility] Exercise Vital Sign Days of Exercise per Week: 0 days Minutes of Exercise per Session: 0 min Stress: No Stress Concern Present (11/12/2023) Received from [facility] [place] of Occupational Health - Occupational Stress Questionnaire Feeling of Stress : Not at all Social Connections: Unknown (11/12/2023) Received from [facility] Social Connection and Isolation Panel [NHANES] Frequency of Communication with Friends and Family: Once a week Frequency of Social Gatherings with Friends and Family: Once a week Attends Restoration Services: Patient declined Active Member of Clubs or Organizations: No Attends Club or Organization Meetings: Never Marital Status: Interpersonal Safety: Not on file Housing Instability: Unknown (11/12/2023) Received from [facility] Housing Stability Vital Sign Unable to Pay [...] for your understanding. Mike Gant MD, [place], [facility], [facility], [place] Interventional Cardiology and Endovascular Interventions [facility] [place] [facility] Miscellaneous Notes* Telephone Encounter - Shelli Francis CMA - 08/17/2024 12:43 PM EDT Called patient to remind them to bring their most current copy of their medication list with them to their appt. Patient verbalizes understanding. [facility] Telephone encounter Note* Telephone Encounter - Shelli Francis CMA - 08/17/2024 12:43 PM EDT Called patient to remind them to bring their most current copy of their medication list with them to their appt. Patient verbalizes understanding. [facility]04-30-2025 History of Present illness Narrative* Delmi Loev NP - 08/12/2024 6:28 PM EDTAssociated Problem(s): [...] surgery, endo started on meds (was in [place]), did not want to travel, then PCP [...] concentrate 2 g, Oral, 2 times daily G-Feetvhdilvje-Fddgk-B12-B6 (Metanx) 3-90.314-2-35 MG capsule 3 mg, Oral, [...] Medical History: Diagnosis Date Actinic keratosis Cancer ([facility]) 605446 Cataract Dry eyes Family history of thyroid [...] of the risks of continued smoking: stroke, [place], all forms of cancer, lung disease, and [...] of the risks of continued smoking: stroke, FL, all forms of cancer, lung disease, and [...] of fatigue, will check documented in this [facility]04-30-2025 Instructions* Patient Instructions* Delmi Love NP - 08/12/2024 1:40 PM EDT Check labs Check EKG, may need a stress test documented in this [facility]04-08-2025 Telephone encounter Note* Telephone Encounter - Darien Blanca DPM - 07/21/2024 11:33 AM EDT Reviewed noninvasive arterial studies. There seems to be some very mild disease on the right lower extremity. Based on her symptomatology I recommend following up with vascular to discuss options. Thank you. [place] [id number] Miscellaneous Notes* Telephone Encounter - Darien Blanca DPM - 07/21/2024 11:33 AM EDT Reviewed noninvasive arterial studies. There seems to be some very mild disease on the right lower extremity. Based on her symptomatology I recommend following up with vascular to discuss options. Thank you. documented in this [place] [address]-04-2025 Telephone encounter Note* Telephone Encounter - Darien Blanca DPM - 07/17/2024 9:40 AM EDT I would recommend that she purchase an bmme-ikn-jmqyfim vitamin-B complex and I will send a prescription for alpha lipoic acid to her pharmacy. Thank you Victor Hugo. [place] [id number] Miscellaneous Notes* Telephone Encounter - Darien Blanca DPM - 07/17/2024 9:40 AM EDT I would recommend that she purchase an drbj-vlo-oxzbhkk vitamin-B complex and I will send a prescription for alpha lipoic acid to her pharmacy. Thank you Victor Hugo. * Telephone Encounter - Victor Hugo Martinez - 07/16/2024 8:38 AM EDT Patient called stating that the Rx is too costly and that she would like you to send in the other medications you mentioned at her appointment. documented in this [place] [address]-03-2025 History of Present illness Narrative* Delmi Love [...] concentrate 2 g, Oral, 2 times daily V-Jsefjiavzgpy-Dogzd-B12-B6 (Metanx) 3-90.314-2-35 MG capsule 3 mg, Oral, [...] Medical History: Diagnosis Date Actinic keratosis Cancer ([facility]) 552168 Cataract Dry eyes Family history of thyroid problem High cholesterol ([facility]) Hx of breast cancer 2006 Personal history [...] of the risks of continued smoking: stroke, FL, all forms of cancer, lung disease, and [...] of the risks of continued smoking: stroke, FL, all forms of cancer, lung disease, and . Options for quitting smoking include: cold turkey, hypnosis, acupuncture, nicotine replacement meds(gum, lozenges, and patches), Buproprion, and Varenicline. At this time pt is encouraged to evaluate their goals for wanting to quit smoking, and reach out toprovider when ready to start this process documented in this [place] [id number] Instructions* Patient Instructions* Delmi Love NP - 07/16/2024 11:45 AM EDT Ear drops to left ear documented in this encounterBarton County [facility] [id number] Telephone encounter Note* Telephone Encounter - Victor Hugo Martinez - 07/16/2024 8:38 AM EDT Patient called stating that the Rx is too costly and that she would like you to send in the other medications you mentioned at her appointment. [facility] [id number] History of Present illness Narrative* Darien Blanca DPM - 07/15/2024 10:15 AM EDT Images from the original note were not included. Subjective Patient ID: Bertha Galarza is a 74 y.o. 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 Pt states she has trouble walking. RGT pain, 4th digit left foot corn. Pt also relates callus on lateral dorsal foot. And relates pain, numbness with toes, also relates swelling. No recent xrays. Did purchase insoles from the [employer] but states they hurt her feet. SS: [...] Medical History: Diagnosis Date Actinic keratosis Cancer ([facility]) 289552 Cataract Dry eyes Family history of thyroid problem High cholesterol ([facility]) Hx of breast cancer 2006 Personal history of other medical treatment thyroid Medications Current Outpatient Medications: aspirin 81 MG EC tablet, Take 81 mg by mouth Daily, Disp: , Rfl: fish oil concentrate ([place]-3) 1000 MG capsule, Take 2 capsules (2 [...] in the morning.,Disp: 16 g, Rfl: 3 D-Pxocjsbnmusd-Jmrgk-B12-B6 (Metanx) 3-90.314-2-35 MG capsule, Take 3 mg [...] angle. Assessment/Plan ICD-10-CM 1. Neuropathy, idiopathic G60.9 J-Xzmnhewyhvhe-Wahgb-B12-B6 (Metanx) 3-90.314-2-35 MG capsule 2. Neuritis M79.2 Q-Ffefraatuogh-Ygoew-B12-B6 (Metanx) 3-90.314-2-35 MG capsule 3. Pain in both feet M79.671 XR foot 3+ views right M79.672 XR foot 3+ views left 4. Peripheral vascular disease ([facility]) I73.9 VASC US PVR/SEGMENTAL PRESSURES LOWER 5. [...] the distal digits. Prescription was sent to [facility] and she was given a sample pack [...] will have her take a vitamin-B complex yprm-wmt-wpqokdr and I will send in a prescription [...] understanding. Darien Blanca DPM documented in this encounterBarton County Memorial [id number] NoteCardiology Clinic Note HPI: Bertha Galarza is [...] concerns. Julio Cesar Borrego MD Interventional Cardiology [facility]02-13-2025 History of Present illness Narrative* Kunal Ortiz NP - 05/28/2024 10:37 AM EST Associated Problem(s): Hypertriglyceridemia (CMS/HCC) Most recent Lipid Panel Triglycerides were still elevated at 313 but a decrease from previous of 430. Pt discussed initiating Fenofibrate with [employer]- he recommended and initiated Aspirin 81mg atthis [...] of 430. Pt discussed initiating Fenofibrate with [employer]- he recommended and initiated Aspirin 81mg atthis [...] recheck in 3 months. documented in this encounterBarton County Memorial [id number] NoteRight Eye Quality was good. Scan locations included subfoveal. Progression has been stable. Findings include normal observations. Left Eye Quality was good. Scan locations included subfoveal. Progression has been stable. Findings include abnormal foveal contour. Notes Good scan with normal appearance right eye (OD)[facility] [id number] History of Present illness Narrative* Dandy Correa [...] lid scrubs were recommended. documented in this encounterBarton County Memorial HospitalPgcfzgcafd09-11-2735 [place] [address] Colonoscopy Procedure Report Signed Patient: Bertha Galarza MR#: [id number] : 1950 Acct:[id number] Age/Sex: 74 / F Adm Date: 5 Loc: Room: Type: [facility] Attending Dr: Taiwo Rosa MD Copies to: [...] was slowly withdrawnwith the findings as below. [place] bowel prep score was good. Findings: Patient [...] MD 05/01/24 1022 Signed By: 05/01/24 1050 [facility]01-17-2025 [place] [address] Gastroenterology H&P Signed Patient: Bertha Galarza MR#: [id number] : 1950 Acct:[id number] Age/Sex: 74 / F Adm Date: 5 Loc: Room: Type: [facility] Attending Dr: Taiwo Rosa MD Copies to: [...] MD 05/01/24 1021 Signed By: 05/01/24 1022 [facility]12-30-2024 History of Present illness Narrative * Delmi Love NP - 04/13/2024 12:05 PM ESTAssociated Problem(s): Tobacco dependence The patient has been advised of the risks of continued smoking: stroke, [place], all forms of cancer, lung disease, and [...] Medical History: Diagnosis Date Actinic keratosis Cancer ([facility]) 236671 Cataract Dry eyes Family history of thyroid problem High cholesterol ([facility]) Hx of breast cancer 2006 Personal history [...] of the risks of continued smoking: stroke, [place], all forms of cancer, lung disease, and [...] (Vibra-Tabs) 100 MG tablet documented in this encounterBarton County Memorial HospitalRnhskhhegr63-10-9224 Instructions* Patient Instructions* Delmi Love NP - 04/13/2024 11:30 AM EST Fluids, rest, atb, steroids, and inhaler If not better contact office documented in this encounterBarton County Memorial HospitalYwiajadggg33-92-0836 History of Present illness Narrative* Benjamin Tan [...] Hands Examined Digits,nails: Examined Patient wearing nail singaporean, Denies dark streaks under finger nails Lymphatics: [...] 1 year skin exam documented in this encounterBarton County Memorial HospitalMnvqmtpmhj77-22-0597 History of Present illness Narrative* Kunal Ortiz, [...] mg by mouth Daily fish oil concentrate ([place]-3) 1000 MG capsule Take 2 capsules (2 [...] Do you have a medical power of deputy commonwealth's attorney?: No Objective : BP 128/64 Pulse [...] on February 27, 2024 documented in this encounterBarton County Memorial HospitalGsfenakfxb92-11-4566 History of Present illness Narrative* Ben Roe, [...] Medical History: Diagnosis Date Actinic keratosis Cancer ([facility]) 211747 Cataract Dry eyes Family history of thyroid problem High cholesterol ([facility]) Hx of breast cancer 2006 Personal history [...] min Stress: No Stress Concern Present (11/12/2023) [employer] [place] [employer]ational [employer] - Occupational Stress Questionnaire Feeling of Stress : Not at all Social Connections: Unknown (11/12/2023) Social Connection and Isolation Panel [NHANES] Frequency of Communication with Friends and Family: Once a week Frequency of Social Gatherings with Friends and Family: Once a week Attends Restoration Services: Patient declined Active Member of Clubs [...] pathological diagnosis of specimen. Patient may take dhja-gnw-edemwyt NSAID p.r.n. for pain Application of salinocaine acid medication to lesion/lesions located at right foot Informed pt of risks and benefits of procedure including high reoccurence rate, infection, pain andconsent given. Application of DSD post procedure. Patient to continue with oral anti - inflammatories as needed for pain and recommended OTC medications such as tylenol or Ibuprofen Discussed accommodative custom inserts and igv-kk-mnlxpl cost has not covered by insurance patient may consider in the future but did recommend odsi-yom-lwcwzuf inserts at this time Ben Roe DPM documented in this encounterNOMS [id number] History of Present illness Narrative* Kunal Ortiz NP - 12/19/2023 11:57 AM EDTAssociated Problem(s): Prediabetes Dietary tips and recommendations given. Continue to implement lifestyle and dietary modifications. Recheck A1C in February. * Kunal Ortiz NP - 12/19/2023 11:52 AM EDTAssociated Problem(s): Hypertriglyceridemia (CMS/HCC) Most recent Lipid Panel Triglycerides were still elevated at 430 Pt discussed initiating Fenofibrate with Exercise Science Internship- he recommended and initiated Aspirin 81mg atthis [...] at 430 Pt discussed initiating Fenofibrate with Exercise Science Internship- he recommended and initiated Aspirin 81mg atthis [...] scan with next mammogram. documented in this encounterBarton County Memorial HospitalHlnbvgtoes62-20-8005 Instructions* Patient Instructions* Kunal Ortiz NP - [...] of vigorous aerobic activity. documented in this encounterBarton County Memorial HospitalNghckqkubf69-72-7513 NoteCardiology Clinic Note Chief Complaint: Pt is [...] concerns. Julio Cesar Borrego MD Interventional Cardiology [facility]02-09-2024 History of Present illness Narrative* JANINA Jackson [...] is normal. 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 JANINA Jackson documented in this encounterBarton County Memorial HospitalXtegnttufq22-28-9766 Evaluation note* Encounter Date Diagnosis Assessment Notes [...] understanding and is agreeable to treatment plan [email or web address] Other Evaluation noteNo assessment information available [facility] Work Phone: Evaluation note* Diagnosis S/P carpal tunnel release- Primary Other postprocedural status Right hand pain Pain in soft tissues of limb Arthritis of carpometacarpal (CMC) joint of right thumb documented in this encounter [facility] HealthcareEvaluation note* Diagnosis Hypertriglyceridemia (CMS/HCC)- Primary [...] unspecified type (CMS/HCC) documented in this encounter [facility] HealthcareEvaluation note* Diagnosis Hypertriglyceridemia (CMS/HCC)- Primary [...] tissues of limb documented in this encounter [facility] HealthcareEvaluation note* Diagnosis Hypertriglyceridemia (CMS/HCC)- Primary [...] ischemic heart disease documented in this encounter [facility] HealthcareEvaluation note* Diagnosis Lower extremity edema- Primary Edema Dyslipidemia Other and unspecified hyperlipidemia documented [facility]* Diagnosis Hypertriglyceridemia (CMS/HCC)- Primary [...] D deficiency- Primary documented in this encounter [facility] HealthcareEvaluation note* Diagnosis Hypertriglyceridemia (CMS/HCC)- Primary [...] HealthcareHistory and physical note Author Taiwo Rosa [facility] Note Date/Time May 01, 2024 1 0:22am [facility] [address] [place] [address] Gastroenterology H&P Signed Patient: Bertha Galarza MR#: [id number] : 1950 Acct:[id number] Age/Sex: 74 / F Adm Date: 5 Loc: Room: Type: [facility] Attending Dr: Taiwo Rosa MD Copies to: [...] signed by Taiwo Rosa MD> 05/01/24 1022 [facility] Work Phone: History general Narrative - Reported* Type Description Date Medical History Hypothyroid Medical History Hypercholesterolemia Medical History Breast cancer Surgical History colonoscopy Surgical History cholecystectomy Surgical History knee arthroscopy Surgical History tonsillectomy and adenoidectomy Surgical History wisdom teeth Surgical History laparoscopy Surgical History tubal ligation Surgical History biopsy Surgical History left knee replacement 10/04 Hospitalization History see above [email or web address] Other InstructionsNot on filedocumented in this encounter [employer] SystemInstructionsNot on filedocumented in this encounter [facility] SystemInstructions* Attachments The following attachments cannot be sent through Care Everywhere. * Quitting smoking for adults (Armenian) documented in this encounterProInfirmary West Health SystemReason for referral (narrative)No reason for referral information availableJ.W. Ruby Memorial Hospital Work Phone: Reason for visit Narrative* Other Medical (Routine) - Closed Specialty Diagnoses / Procedures Referred By Jorge Luis t Referred To Contact Neurology Diagnoses Numbness and tingling of both feet Lumbar back pain Procedures EMG AND NERVE CONDUCTION STUDY Delmi Love, JADE [address] [place] [address] Phone: tel: fax: Jamia Guevara MD [address] [place] [address] Phone: tel: fax: Referral ID Status Reason Start Date Expiration Date Visits Re quested Visits Authorized [id number] Closed 09/24/2024 03/23/2025 1 1 [facility] [...] Godwin DO Primary Care Provider, Attending Stanislav spangelr Active Trixie Gr Jr, DO Other Provider Active Team Status: Active Member Role Status Dates Jose David Godwin DO Primary Care Provider Active Team Status: Inactive Member Role Status Dates Jose David Godwin DO Primary Care Provider Active Yuliet Perez APRN Attending Provider Active Electrical Installation Inspector Relationship Specialty Start Date End Date Jose David Godwin MD [address] [place] [address] PCP - General Family Medicine 10/11/22 Electrical Installation Inspector Relationship Specialty Start Date End Date Jose David Godwin MD [address] [place] [address] PCP - General Family Medicine 10/11/22 Electrical Installation Inspector Relationship Specialty Start Date End Date Moustapha De Leon MD [address] [place] [address] PCP - General Family Medicine 11/08/23 Stephanie Peters OD [facility] [place] [address] Referring Physician Optometry 11/08/23 Kunal Ortiz NP [address] [facility] [place] [address] Nurse Practitioner Family Medicine 11/13/23 Electrical Installation Inspector Relationship Specialty Start Date End Date Moustapha De Leon MD [address] [place] [address] PCP - General Family Medicine 11/08/23 Stephanie Peters OD [address] [place] [address] Referring Physician Optometry 11/08/23 Kunal Ortiz NP [address] [place] [address] Nurse Practitioner Family Medicine 11/13/23 Electrical Installation Inspector Relationship Specialty Start Date End Date Moustapha De Leon MD [address] [place] [address] PCP - General Family Medicine 11/08/23 Stephanie Peters OD [address] [place] [address] Referring Physician Optometry 11/08/23 Kunal Ortiz NP [address] [place] [address] Nurse Practitioner Family Medicine 11/13/23 Electrical Installation Inspector Relationship Specialty Start Date End Date Moustapha De Leon MD [address] [place] [address] PCP - General Family Medicine 11/08/23 Stephanie Peters OD [address] [place] [address] Referring Physician Optometry 11/08/23 Kunal Ortiz NP [address] [place] [address] Nurse Practitioner Family Medicine 11/13/23 Electrical Installation Inspector Relationship Specialty Start Date End Date Moustapha De Leon MD [address] [place] [address] PCP - General Family Medicine 11/08/23 Stephanie Peters OD [address] [place] [address] Referring Physician Optometry 11/08/23 Kunal Ortiz NP [address] [place] [address] Nurse Practitioner Family Medicine 11/13/23 Electrical Installation Inspector Relationship Specialty Start Date End Date Moustapha De Leon MD [address] [place] [address] PCP - General Family Medicine 11/08/23 Stephanie Peters, OD [address] [place] [address] Referring Physician Optometry 11/08/23 Kunal Ortiz NP [address] [place] [address] Nurse Practitioner Family Medicine 11/13/23 Electrical Installation Inspector Relationship Specialty Start Date End Date Moustapha De Leon MD [address] [place] [address] PCP - General Family Medicine 11/08/23 Stephanie Peters, OD [address] [place] [address] Referring Physician Optometry 11/08/23 Kunal Ortiz NP [address] [place] [address] Nurse Practitioner Family Medicine 11/13/23 Electrical Installation Inspector Relationship Specialty Start Date End Date Moustapha De Leon MD [address] [place] [address] PCP - General Family Medicine 11/08/23 Stephanie Peters, OD [address] [address] Referring Physician Optometry 11/08/23 Kunal Ortiz NP [address] [place] [address] Nurse Practitioner Family Medicine 11/13/23 Electrical Installation Inspector Relationship Specialty Start Date End Date Moustapha De Leon MD [address] [place] [address] PCP - General Family Medicine 11/08/23 Stephanie Peters OD [address] [address] Referring Physician Optometry 11/08/23 Kunal Ortiz NP [address] [place] [address] Nurse Practitioner Family Medicine 11/13/23 Electrical Installation Inspector Relationship Specialty Start Date End Date Moustapha De Leon MD [address] [place] [address] PCP - General Family Medicine 11/08/23 Stephanie Peters, OD [address] [place] [address] Referring Physician Optometry 11/08/23 Kunal Ortiz NP [address] [place] [address] Nurse Practitioner Family Medicine 11/13/23 Electrical Installation Inspector Relationship Specialty Start Date End Date Moustapha De Leon MD [address] [place] [address] PCP - General Family Medicine 11/08/23 Stephanie Peters OD [address] [address] Referring Physician Optometry 11/08/23 Kunal Ortiz NP [address] [place] [address] Nurse Practitioner Family Medicine 11/13/23 Electrical Installation Inspector Relationship Specialty Start Date End Date Moustapha De Leon MD [address] [place] [address] PCP - General Family Medicine 11/08/23 Stephanie Peters, OD [address] [place] [address] Referring Physician Optometry 11/08/23 Kunal Ortiz NP [address] [place] [address] Nurse Practitioner Family Medicine 11/13/23 Electrical Installation Inspector Relationship Specialty Start Date End Date Moustapha De Leon MD [address] [place] [address] PCP - General Family Medicine 11/08/23 Stephanie Peters OD [address] [address] Referring Physician Optometry 11/08/23 Kunal Ortiz NP [address] [place] [address] Nurse Practitioner Family Medicine 11/13/23 Electrical Installation Inspector Relationship Specialty Start Date End Date Moustapha De Leon MD [address] [place] [address] PCP - General Family Medicine 11/08/23 Stephanie Peters, OD [address] [place] [address] Referring Physician Optometry 11/08/23 Kunal Ortiz NP [address] [place] [address] Nurse Practitioner Family Medicine 11/13/23 Team Status: [...] May 01, 2024 Kunal N Ortiz , 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 PRESS OPERATOR-C Primary Care Provider Active Start: April Electrical Installation Inspector Relationship Specialty Start Date End Date Moustapha De Leon MD [address] [place] [address] PCP - General Family Medicine 11/08/23 Stephanie Peters OD [address] [place] [address] Referring Physician Optometry 11/08/23 Kunal Ortiz NP [address] [place] [address] Nurse Practitioner Family Medicine 11/13/23 Electrical Installation Inspector Relationship Specialty Start Date End Date Moustapha De Leon MD [address] [place] [address] PCP - General Family Medicine 11/08/23 Stephanie Peters OD [address] [place] [address] Referring Physician Optometry 11/08/23 Kunal Ortiz NP [address] [place] [address] Nurse Practitioner Family Medicine 11/13/23 Electrical Installation Inspector Relationship Specialty Start Date End Date Moustapha De Leon MD [address] [place] [address] PCP - General Family Medicine 11/08/23 Stephanie Peters OD [address] [place] [address] Referring Physician Optometry 11/08/23 Kunal Ortiz NP [address] [place] [address] Nurse Practitioner Family Medicine 11/13/23 Electrical Installation Inspector Relationship Specialty Start Date End Date Moustapha De Leon MD [address] [place] [address] PCP - General Family Medicine 11/08/23 Stephanie Peters, OD [address] [place] [address] Referring Physician Optometry 11/08/23 Kunal Ortiz NP [address] [place] [address] Nurse Practitioner Family Medicine 11/13/23 Electrical Installation Inspector Relationship Specialty Start Date End Date Moustapha De Leon MD [address] [place] [address] PCP - General Family Medicine 11/08/23 Stephanie Peters, OD [address] [place] [address] Referring Physician Optometry 11/08/23 Kunal Ortiz NP [address] [place] [address] Nurse Practitioner Family Medicine 11/13/23 Electrical Installation Inspector Relationship Specialty Start Date End Date Moustapha De Leon MD [address] [place] [address] PCP - General Family Medicine 11/08/23 Stephanie Peters, OD [address] [place] [address] Referring Physician Optometry 11/08/23 Kunal Ortiz, JADE [address] [place] [address] Nurse Practitioner Family Medicine 11/13/23 Electrical Installation Inspector Relationship Specialty Start Date End Date Moustapha De Leon MD [address] [place] [address] PCP - General Family Medicine 11/08/23 Stehpanie Peters, OD [address] [place] [address] Referring Physician Optometry 11/08/23 Kunal Ortiz, JADE [address] [place] [address] Nurse Practitioner Family Medicine 11/13/23 Electrical Installation Inspector Relationship Specialty Start Date End Date Moustapha De Leon MD [address] [place] [address] PCP - General Family Medicine 11/08/23 Stephanie Peters, OD [address] [place] [address] Referring Physician Optometry 11/08/23 Electrical Installation Inspector Relationship Specialty Start Date End Date Moustapha De Leon MD [address] [place] [address] PCP - General Family Medicine 11/08/23 Stephanie Peters, OD [address] [place] [address] Referring Physician Optometry 11/08/23 Delmi Love NP [address] [place] [address] Nurse Practitioner Family Medicine 07/15/24 Electrical Installation Inspector Relationship Specialty Start Date End Date Moustapha De Leon MD [address] [place] [address] PCP - General Family Medicine 11/08/23 Stephanie Peters, OD [address] [place] [address] Referring Physician Optometry 11/08/23 Delmi Love NP [address] [place] [address] Nurse Practitioner Family Medicine 07/15/24 Electrical Installation Inspector Relationship Specialty Start Date End Date Moustapha De Leon MD [address] [place] [address] PCP - General Family Medicine 11/08/23 Stephanie Peters, OD [address] [place] [address] Referring Physician Optometry 11/08/23 Delmi Love NP [address] [place] [address] Nurse Practitioner Family Medicine 07/15/24 Electrical Installation Inspector Relationship Specialty Start Date End Date Moustapha De Leon MD [address] [place] [address] PCP - General Family Medicine 11/08/23 Stephanie Peters, OD [address] [place] [address] Referring Physician Optometry 11/08/23 Delmi Love NP [address] [place] [address] Nurse Practitioner Family Medicine 07/15/24 Electrical Installation Inspector Relationship Specialty Start Date End Date Moustapha De Leon MD [address] [place] [address] PCP - General Family Medicine 11/08/23 Stephanie Peters, OD [address] [place] [address] Referring Physician Optometry 11/08/23 Delmi Love NP [address] [place] [address] Nurse Practitioner Family Medicine 07/15/24 Electrical Installation Inspector Relationship Specialty Start Date End Date Jose David Godwin DO PCP - General Family Medicine 04/01/20 Electrical Installation Inspector Relationship Specialty Start Date End Date Moustapha De Leon MD [address] [place] [address] PCP - General Family Medicine 11/08/23 Stephanie Peters, OD [address] [place] [address] Referring Physician Optometry 11/08/23 Delmi Love, JADE [address] [place] [address] Nurse Practitioner Family Medicine 07/15/24 Electrical Installation Inspector Relationship Specialty Start Date End Date Jose David Godwin DO PCP - General Family Medicine 04/01/20 Electrical Installation Inspector Relationship Specialty Start Date End Date Jose David Godwin DO PCP - General Family Medicine 04/01/20 Electrical Installation Inspector Relationship Specialty Start Date End Date Moustapha De Leon MD [address] [place] [address] PCP - General Family Medicine 11/08/23 Stephanie Peters OD [address] [place] [address] Referring Physician Optometry 11/08/23 Delmi Love, LARGE SHEETFED PRESS OPERATOR [address] [place] [address] Nurse Practitioner Family Medicine 07/15/24 Electrical Installation Inspector Relationship Specialty Start Date End Date Moustapha De Leon MD [address] [place] [address] PCP - General Family Medicine 11/08/23 Stephanie Peters OD [address] [address] Referring Physician Optometry 11/08/23 Delmi Love NP [address] [place] [address] Nurse Practitioner Family Medicine 07/15/24 Electrical Installation Inspector Relationship Specialty Start Date End Date Moustapha De Leon MD [address] [place] [address] PCP - General Family Medicine 11/08/23 Stephanie Peters, HORACE [facility] [place] [address] Referring Physician Optometry 11/08/23 Delmi Love NP [address] [place] [address] Nurse Practitioner Family Medicine 07/15/24 Team Status: Inactive Member Role Status Dates ALEX SanfordC Primary Care Provider Ac tive Start: September 10, 2024 End: September 10, 2024 Yuliet Perez APRN Attending Provider Active Start: September 10, 2024 End: September 10, 2024 Team Status: Inactive Member Role Status Dates Yuliet Perez APRN Attending Provider Active Start: September 10, 2024 End: September 10, 2024 Electrical Installation Inspector Relationship Specialty Start Date End Date Moustapha De Leon MD [address] [place] [address] PCP - General Family Medicine 11/08/23 Stephanie Peters, OD [address] [place] [address] Referring Physician Optometry 11/08/23 Delmi Love, JADE [address] [place] [address] Nurse Practitioner Family Medicine 07/15/24 Electrical Installation Inspector Relationship Specialty Start Date End Date Moustapha De Leon MD [address] [place] [address] PCP - General Family Medicine 11/08/23 Stephanie Peters, OD [address] [place] [address] Referring Physician Optometry 11/08/23 Delmi Love NP [address] [place] [address] Nurse Practitioner Family Medicine 07/15/24 Electrical Installation Inspector Relationship Specialty Start Date End Date Moustapha De Leon MD [address] [place] [address] PCP - General Family Medicine 11/08/23 Stephanie Peters, OD [address] [place] [address] Referring Physician Optometry 11/08/23 Delmi Love NP [address] [place] [address] Nurse Practitioner Family Medicine 07/15/24 Electrical Installation Inspector Relationship Specialty Start Date End Date Moustapha De Leon MD [address] [place] [address] PCP - General Family Medicine 11/08/23 Stephanie Peters, OD [address] [place] [address] Referring Physician Optometry 11/08/23 Delmi Love NP [address] [place] [address] Nurse Practitioner Family Medicine 07/15/24 Electrical Installation Inspector Relationship Specialty Start Date End Date Moustapha De Leon MD [address] [place] [address] PCP - General Family Medicine 11/08/23 Stephanie Peters, OD [address] [place] [address] Referring Physician Optometry 11/08/23 Delmi Love NP [address] [place] [address] Nurse Practitioner Family Medicine 07/15/24 Electrical Installation Inspector Relationship Specialty Start Date End Date Moustapha De Leon MD [address] [place] [address] PCP - General Family Medicine 11/08/23 Stephanie Peters, OD [address] [place] [address] Referring Physician Optometry 11/08/23 Delmi Love NP [address] [place] [address] Nurse Practitioner Family Medicine 07/15/24 Electrical Installation Inspector Relationship Specialty Start Date End Date Moustapha De Leon MD [address] [place] [address] PCP - General Family Medicine 11/08/23 Stephanie Peters, OD [address] [place] [address] Referring Physician Optometry 11/08/23 Delmi Love NP [address] [place] [address] Nurse Practitioner Family Medicine 07/15/24 Electrical Installation Inspector Relationship Specialty Start Date End Date Moustapha De Leon MD [address] [place] [address] PCP - General Family Medicine 11/08/23 Stephanie Peters, OD [address] [place] [id number] Referring Physician Optometry 11/08/23 Delmi Love NP [address] [place] [phone] Nurse Practitioner Family Medicine 07/15/24 Electrical Installation Inspector Relationship Specialty Start Date End Date Moustapha De Leon MD [address] [place] [phone] PCP - General Family Medicine 11/08/23 Stephanie Peters, OD [address] [place] [address] Referring Physician Optometry 11/08/23 Delmi Loev NP [address] [place] [phone] Nurse Practitioner Family Medicine 07/15/24 Team Status: [...] November 04, 2024 End: November 04, 2024 Electrical Installation Inspector Relationship Specialty Start Date End Date Moustapha De Leon MD [address] [place] [phone] PCP - General Family Medicine 11/08/23 Stephanie Peters, OD [address] [place] [address] Referring Physician Optometry 11/08/23 Delmi Love NP [address] [place] [phone] Nurse Practitioner Family Medicine 07/15/24 Electrical Installation Inspector Relationship Specialty Start Date End Date Moustapha De Leon MD [address] [place] [phone] PCP - General Family Medicine 11/08/23 Stephanie Peters, OD [address] [place] [address] Referring Physician Optometry 11/08/23 Delmi Love NP [address] [place] [phone] Nurse Practitioner Family Medicine 07/15/24 Electrical Installation Inspector Relationship Specialty Start Date End Date Moustapha De Leon MD [address] [place] [phone] PCP - General Family Medicine 11/08/23 Stephanie Peters, OD [address] [place] [address] Referring Physician Optometry 11/08/23 Delmi Love NP [address] [place] [phone] Nurse Practitioner Family Medicine 07/15/24 Electrical Installation Inspector Relationship Specialty Start Date End Date Moustapha De Leon MD [address] [place] [phone] PCP - General Family Medicine 11/08/23 Stephanie Peters, OD [address] [place] [address] Referring Physician Optometry 11/08/23 Delmi Love NP [address] [place] [phone] Nurse Practitioner Family Medicine 07/15/24 Goals (unrecognized [...] Fever Reason Comments 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 Pt states she has trouble walking. RGT pain, 4th digit left foot corn. Pt also relates callus on lateral dorsal foot. And relates pain, numbness with toes, also relates swelling. No recent xrays. Did purchase insoles from the [employer] but states they hurt her feet. SS: 10 Reason Onset Date Comments Advice Only 07/16/2024 Rx Change Reques t Reason Onset Date Comments Med Refill 07/23/2024 Reason Onset Date Comments Med Refill 08/05/2024 Reason Onset Date Comments Med Refill 08/11/2024 Reason Comments Follow-up Left ear pain Reason Comments New Patient *3:52 pt called, the y were at wrong building on [address], they are making their way to the office now, should be within the 15 minute angela period. Peripheral vascular [id number] (ICD-10-CM) - Smoker Specialty Diagnoses / Procedures Referred By Contjosette t Referred To Contact Vascular Surgery Diagnoses Peripheral vascular disease Smoker Procedures [place] OFFICE OUTPATIENT VISIT 60-74 MINS HIGH MDM [id number] (SNOMED CT) - AMB REFERRAL TO VASCULAR SURGERY Darien Blanca, DPM [address] [place] [address] Phone: tel: fax: Rik Hightower MD [address] [place] [address] Phone: tel:[phone] fax: Referral ID Status Reason Start Date Expiration Date V isits Requested Visits Authorized [id number] Pending Review 07/21/2024 01/17/2025 1 1 Reason Comments Fatigue Reason Comments FUV Metanx Bertha Galarza 74yo New Patient presents for 3 month FUV of Metanx therapy. Patient relates she did not start Metanx due to cost. Patient would like a refill for the Alpha Lipoic acid. Patient had an appt. Yesterday with Neurology at [facility] in [place] (dr. Guevara)SS: 10 Reason Onset Date Comments Med Refill 11/02/2024 Reason Comments Numbness and tingling of both feet INFORMATION SOURCE (unrecogn ized section and content) DATE CREATED AUTHOR 07/08/2022 [facility] DATE CREATED AUTHOR AUTHOR'S ORGANIZ ATION 08/21/2024 [facility] DATE CREATED AUTHOR AUTHOR'S ORGANIZ ATION 11/06/2024 [facility] DATE CREATED AUTHOR AUTHOR'S ORGANIZ ATION 11/10/2024 [facility] EPIC DATE CREATED AUTHOR AUTHOR'S ORGANIZ ATION 11/15/2024 [facility] FOR RECORDS PERTAINING TO PATIENTS WHO [...] BE BASED ON THE PRIMARY CLINICAL RECORDS. [facility] [employer] provides no warranty or guarantee of the accuracy or completeness of information in this document.
== END 2024-12-17 11:02 | disposition home or self-care (01) ==
PROVIDERS: PCP Nurse Practitioner; Visit Provider Nurse Practitioner
DX: E78.00 Pure hypercholesterolemia, unspecified (principal); E55.9 Vitamin D deficiency, unspecified
CPT/HCPCS: 36415; 80061; 82306

== ENCOUNTER 2024-12-28 11:47 | Outpatient (OUT) | payer MEDICARE, SELFPAY ==
--- OUTSIDE RECORDS SUMMARY | 2024-12-28 12:20 | XMS_ITS | CCD ---
Author Organization [facility] Care Team Providers Care [place] Service Attendant Name Role Phone DO Jose David Godwin Primary Care Provider DO Jose David Godwin Attending Provider [phone] DO Trixie Gr Jr Other Provider [phone] Yuliet Perez Unavailable DO Jose David Godwin Primary Care Provider LUANN Perez Attending Provider SHAIKH Lorelei ENGEL Admitting Unavailable SHAIKH Lorelei ENGEL Attending Unavailable SHAIKH Lorelei ENGEL Primary Care Unavailable RAMPART, DR KARI Stern Consulting Unavailable SHAIKH Lorelei ENGEL Consulting Unavailable LENA, DR GARDINER Admitting Unavailable CITLALI, DR GARDINER Attending Unavailable LENA, DR GARDINER Primary Care Unavailable LENA, DR GARDINER Consulting Unavailable LENA, DR GARDINER Admitting Unavailable LENA, DR GARDINER Attending Unavailable LENA, DR GARDINER Primary Care Unavailable RAMPART, DR KARI Stern Consulting Unavailable LENA, DR GARDINER Consulting Unavailable Jose David Godwin MD Primary Care Provider Stephanie Peters OD Unavailable Moustapha De Leon MD Primary Care Provider Diana HANSEN, Kunal Unavailable [phone] Moe MORENO, Taiwo Lakhani Attending Provider Diana OFFICE MACHINE INSPECTOR-CKunal Primary Care Provid er Ktae OFFICE MACHINE INSPECTOR, Delmi Unavailable Jose David Godwin DO Primary Care Provider MIKE GANT Attending Unavailable RUSHER, DARIEN S Referring Unavailable HOUSE, JOSE DAVID P Primary Care Unavailable HOUSE, JOSE DAVID P Referring Unavailable HOUSE, JOSE DAVID P Primary Care Unavailable Yuliet Perez APRN Attending Provider Diana OFFICE MACHINE INSPECTOR-CKunal Primary Care Provid er Yuliet Perez APRN Attending Provider [phone] Natalee Basilio APRN Attending Provider [phone] Delmi Love Primary Care Provider [phone] Taiwo Rosa Attending Unavailable Taiwo Rosa Admitting Unavailable Kunal Ortiz Primary Care Unavaila ble NON STAFF Primary Care Unavailable Natalee Basilio Attending Unavailable Natalee Basilio Admitting Unavailable Yuliet Perez Attending Unavailable Yuliet Perez Admitting Unavailable RICCIHOJULIO CESAR COOK Attending Unavailable ALGHOTHANI, JESSICAD Attending Unavailable OSKAR, GAURAV Attending Unavailable OSKAR, GAURAV Attending Unavailable Aichholz Delmi HNASEN Unavailable DANDY CORREA Attending Unavailable ORTIZKUNAL RYDER Attending Unavailabl e GLADIS, DARIEN Perry Attending Unavailable RUSHER, DARIEN S Referring Unavailable AICHHOLZ, DELMI Attending Unavailable RUSHER, DARIEN S Referring Unavailable AICHHOLZ, DELMI Attending Unavailable MIKE GANT Referring Unavailable AICHHOLZ, DELMI Attending Unavailable AICHHOLZ, DELMI Referring Unavailable JAMIA GUEVARA Attending Unavailable AICHHOLZ, DELMI Referring Unavailable RUSHER, DARIEN S Attending Unavailable BEN ROE Attending Unavailable KUNAL ORTIZ Attending UnavailBENJAMIN Hardwick Attending Unavailable AICHHOLZ, DELMI Attending Unavailable AICHHOLZ, DELMI Attending Unavailable AME HONG Attending Unavailable Allergies Allergy Classification Reported Allergen(s) Allergy Type Date of Onset Reaction(s) Facility (1 source) Penicillin G Drug Allergy rash [facility] Other (1 source) Penicillin Drug Allergy 09-24-19 [facility] Repository (20 sources) Penicillins; Translations: [PENICILLINS] Drug Allergy 12-19-19 13 Hives, Itching, Rash [facility] (20 sources) atorvastatin; Translations: [ATORVASTATIN] Drug Allergy 12-04-19 24 Other [facility] (3 sources) atorvastatin Drug Allergy 08-12-19 25 [facility] (3 sources) Penicillins Propensity to adverse reactions to drug 12-19-19 13 Rash [facility] (1 source) Penicillin Drug Allergy 11-05-19 25 [facility] Repository Medications Current Medications Medication Drug Class(es) Dates Sig (Normalized) Sig (Original) [id number] 200 actuat albuterol 0.09 mg/actuat metered dose [...] Active B Complex-C (b complex-vitamin c) tablet (20 sources) take 1 tablet by mouth in [...] by mouth at bedtime fish oil concentrate (Elgin-3) 1000 MG capsule Indications: Mixed hyperlipidemia (CMS/HCC) [...] 03/02/2024 07/16/2024 Discontinued (Therapy completed) Flonase Active L-Hmgfwvnhyxxa-Audpv-B12-B6 (Metanx) 3-90.314-2-35 MG capsule (20 sources) Start: 07-15-2024 End: 10-13-2024 take 1 capsule by mouth in the morning M-Lmocfbecamxo-Ceyiz-B12-B6 (Metanx) 3-90.314-2-35 MG capsule Indications: Neuropathy, idiopathic [...] Levothyroxine So dium 100 MCG Orally Active methylPREDNISolone (2 sources) Corticosteroid Start: 12-25-2024 methylPREDNISolone (Medrol Dospak) 4 MG tablets Indications: Left hand pain , Trigger middle finger of left hand , Carpal tunnel syndrome of left wrist Follow schedule on package instructions 21 tablet 12/25/2024 Active nicotine 2 mg oral lozenge (20 sources) Cholinergic Nicotinic Agonist Start: 08-18-2024 take [...] days 10 mL 07/16/2024 07/23/2024 Active omega 4-hqi-yjh-fish oil (Fish OiL) 1,000 (120-180) mg capsule (1 source) take 1 capsule by mouth in the morning omega 1-nhj-jxc-fish oil (Fish OiL) 1,000 (120-180) mg capsule Take 1 capsule by mouth in the morning. Active Elgin 1-Dqc-Tuv-Fish Oil (Fish Oil) 100-160-1,000 mg capsule (5 sources) Start: 04-20-2024 take 100-160 capsules by mouth twice daily Start: 04-20-2024 take 100-160 capsule s by mouth twice daily Elgin 1-Dcx-Mmh-Fish Oil (Fish Oil) 100-160-1,000 mg capsule Active 2 CAP PO Twice daily April 20, 2024 1:00am Complies with drug therapy Start: 04-20-2024 take 100-160 capsule s by mouth twice daily [place]gin 5-Iwj-Nyx-Fish Oil (Fish Oil) 100-160-1,000 mg capsule Active 2 CAP PO Twice daily April 20, 2024 1:00am Start: 04-20-2024 take 100-160 capsule s by mouth twice daily [place]gin 1-Ksk-Dtl-Fish Oil (Fish Oil) 100-160-1,000 mg capsule Active [...] behavior of skin] 02-13-2024 Episodic Nutritional deficiencies (20 sources) Vitamin D deficiency; Translations: [Vitamin D deficiency, unspecified] Onset: 06-07-2024 06-07-2024 Chronic Osteoarthritis (1 source) Arthritis of first carpometacarpal joint of right hand; Translations: [Unilateral primary osteoarthritis of first carpometacarpal joint, right hand] 05-24-2023 Chronic Osteoporosis (20 sources) Senile osteoporosis; Translations: [Age-related osteoporosis without current pathological fracture] Onset: 06-07-2024 04-21-2024 Chronic Other acquired deformities (18 sources) Acquired spondylolisthesis; Translations: [Spondylolisthesis, lumbosacral region] [...] [Pain in left foot] 10-14-2024 Episodic Other connective tissue disease (2 sources) Pain of left hand; Translations: [Pain in left hand] 12-24-2024 Episodic Other connective tissue disease (2 sources) Triggering of digit; Translations: [Trigger finger, left middle finger] 12-25-2024 Episodic Other lower respiratory disease (2 sources) [...] limb] 11-04-2024 Chronic Other nervous system disorders (2 sources) Carpal tunnel syndrome of left wrist; Translations: [Carpal tunnel syndrome, left upper limb] 12-25-2024 Chronic Other nervous system disorders (1 source) Numbness; Translations: [Anesthesia of skin] 10-13-2024 Episodic Other nervous system disorders (1 source) Paresthesia; Translations: [Paresthesia of skin] 10-13-2024 Episodic Other skin disorders (2 sources) Seborrheic [...] unspecified] Onset: 08-12-2024 Episodic Residual codes; unclassified (9 sources) Lung cancer screening declined; Translations: [Procedure and treatment not carried out because of patient's decision for unspecified reasons] Onset: 11-09-2024 11-09-2024 Episodic Retinal detachments; defects; vascular occlusion; and retinopathy (20 sources) Bilateral epiretinal membrane of eyes; Translations: [Puckering of macula, bilateral] Onset: 11-08-2023 11-08-2023 Chronic Spondylosis; intervertebral disc disorders; other back problems (20 sources) Cervical spondylosis; Translations: [Spondylosis without myelopathy or radiculopathy, cervical region] Onset: 09-29-2024 09-29-2024 Chronic Substance-related disorders (20 sources) Tobacco dependence syndrome; [...] eyelids] Onset: 05-25-2024 Resolved: 09-24-2024 05-25-2024 Episodic Malaise and fatigue (20 sources) Fatigue; Translations: [Other fatigue] Onset: 08-12-2024 08-12-2024 Episodic Mood disorders (20 sources) Mood disorders Onset: 05-23-2021 Resolved: 02-27-2024 02-27-2024 Nonspecific chest pain (20 sources) Chest pain; Translations: [Other chest pain] Onset: 09-24-2024 09-24-2024 Episodic Other ear and sense organ disorders [...] fecal abnormalities] Onset: 03-26-2024 03-26-2024 Episodic Other nervous system disorders (20 sources) Paresthesia of foot ; Translations: [Anesthesia of skin] Onset: 08-12-2024 08-12-2024 Episodic Other screening for suspected conditions (not mental disorders or infectious disease) (20 sources) Encounter for screening mammogram for malignant neoplasm of breast; Translations: [Patient encounter status] Onset: 03-29-2022 Resolved: 09-24-2024 Episodic Other upper respiratory disease (20 sources) [...] system] Onset: 08-12-2024 Resolved: 09-24-2024 08-12-2024 Episodic Spondylosis; intervertebral disc disorders; other back problems (20 sources) Low back pain; Translations: [Lumbar back pain] Onset: 09-24-2024 09-24-2024 Episodic Unclassified (1 source) LOW BACK PAIN, UNSPECIFIED; Translations: [LOW BACK PAIN, UNSPECIFIED] Onset: 07-03-2022 Unclassified (1 source) Patient encounter status 03-26-2024 Results Test Name Value Interpretation Reference Range Facility 29on 11-13-2024 29 Addended by: GAURAV SCHMITT on: 11/13/2024 12:01 PM Modules accepted: Orders Normal [facility] Office Visiton 11-13-2024 Follow-up visit [id number] Bertha Galarza 1950 F Date Provider Department Center 11/13/2024 [id number], ADAM CARD [facility] Family History Problem Relation Age of Onset Coronary artery disease Mother Coronary artery disease Sister Coronary artery disease Brother Family Status - Relation Status Age at Mother Sister Brother Level of Service:75424 [place] OFFICE/OUTPATIENT ESTABLISHED MOD MDM 30 MIN [facility] Urine Cultureon 11-04-2024 Bacteria identified Cx Nom (U) ORGANISM: Escherichia coli (O:ESCCOL) [place] Count >100,000 Aerobic ALMA Charge (NMIC56) ---- [...] ALL B-LACTAM DRUGS. PERFORMED BY: [place] [id number] PATHOLOGIST BOOKSTORE MANAGER DAVI BURGOS M.D. Normal [facility] Comment on above: Performed By: #### C UU #### [place] [id number] [place] Orders Onlyon 11-02-2024 Orders Only [id number] Bertha Galarza 1950 F Date Provider Department Center 11/02/2024 [id number][facility] Family History Problem Relation Age of Onset Coronary artery disease Mother Coronary artery disease Sister Coronary artery disease Brother Family Status - Relation Status Age at Mother Sister Brother Normal [facility] NM UNA PERF SPECT REST STRon 11-01-2024 [place] [address] Nuclear Medicine Report Signed Patient: BERTHA GALARZA MR#: [id number] : 1950 Acct:[id number] Age/Sex: 74 / F ADM Date: 10/30/24 Loc: NM Attending Dr: Gaurav Schmitt NP Ordering Physician: Gaurav Schmitt NP Date of Service: 10/30/24 Procedure(s): NM una perf SPECT rest str Accession Number(s): [id number] cc: Delmi Love OFFICE MACHINE INSPECTOR; Gaurav Schmitt NP Patient Name: BERTHA GALARZA MR#: [id number] : 1950 Exam Date: 10/30/2024 Ordering Doctor: [...] the study was pending per attending physician [facility] . For more details please see [...] M.D. Signed By: 11/01/241834 DD/ 33 TD/TT: Medical Office Supervisor: [facility] Radiology, Radiologist, - 11/01/2024 [place] [address] Nuclear Medicine Report Signed Patient: BERTHA GALARZA MR#: [id number] : 1950 Acct:[id number] Age/Sex: 74 / F ADM Date: 10/30/24 Loc: NM Attending Dr: Gaurav Schmitt NP Ordering Physician: Gaurav Schmitt NP Date of Service: 10/30/24 Procedure(s): NM una perf SPECT rest str Accession Number(s): [id number] cc: Delmi Love NP; Gaurav Schmitt NP Patient Name: BERTHA GALARZA MR#: [id number] : 1950 Exam Date: 10/30/2024 Ordering Doctor: [...] the study was pending per attending physician [facility] . For more details please see [...] M.D. Signed By: 11/01/241834 DD/ 33 TD/TT: Medical Office Supervisor: [facility] Radiology Study observation (narrative) [facility] NM UNA PERF SPECT REST STROr dered By: Radiologist Radiology on 11-01-2024 [facility] Work Phone: ALL LIPID PROFILE (FASTING)o n 10-20-2024 [facility]OL [facility] Comment on above: 3.3 - 4.4 LOW RISK 4.4 - 7.1 AVERAGE RISK 7.1 - 11.0 MODERATE RISK >11.0 HIGH RISK Cholesterol [Mass/Vol] 152 mg/dL NINF - 200 mg/dL [facility] Cholesterol in HDL [Mass/Vol] 50 mg/dL 40 - 60 mg/dL [facility] Comment on above: > or =60 mg/dl - LOW CARDIOVASCULAR RISK <40 mg/dl - HIGH CARDIOVASCULAR RISK Interpretation and review of laboratory results Abnormal [facility] Magnesium [Mass/Vol] 32 mg/dL [facility] Comment on above: <100 mg/dl OPTIMAL 100-129 mg/dl NEAR OR ABOVE OPTIMAL 130-159 mg/dl BORDERLINE HIGH 160-189 mg/dl HIGH >190 mg/dl VERY HIGH Magnesium [Mass/Vol] 70.2 mg/dL [facility] Triglyceride [Mass/Vol] 351 mg/dL High NINF - 150 mg/dL [facility] Office Visiton 10-19-2024 Follow-up visit [id number] Bertha Galarza 1950 F Date Provider Department Center 10/19/2024 [id number] SCHMITT CARD [facility] Family History Problem Relation Age of Onset Coronary artery disease Mother Coronary artery disease Sister Coronary artery disease Brother Family Status - Relation Status Age at Mother Sister Brother Level of Service:50162 [place] OFFICE/OUTPATIENT ESTABLISHED MOD MDM 30 MIN Normal [facility] XR CERVICAL SPINE 2-3 VIEWSo n [...] report is generated using voice recognition reporting (AFINOS). On occasion, [employer] erroneously drops words from the report or [...] report is generated using voice recognition reporting (AFINOS). On occasion, AFINOS erroneously drops words from the report or replaces the spoken word with a similar sounding word. Please call with any questions/concerns regarding the report. Dictated on: 09/28/2024 1:06 PM 09/28/2024 9:36 AM This report has been electronically signed and approved by the interpreting Radiologist. Normal Not Available Laboratory - Chemistry and C hemistry - challengeon 09-10-2024 Bilirubin Ql (U) Negative [facility] Glucose (U) [Mass/Vol] Negative [facility] Ketones Ql (U) Negative [facility] pH (U) 6.0 [pH] [facility] Specific gravity (U) [Rel density] 1.025 [facility] Urobilinogen (U) [Mass/Vol] 0.2 mg/dL [facility] Laboratory - Specimen inform ationon 09-10-2024 Appearance (U) cloudy [facility] Color (U) yellow [facility] Laboratory - Urinalysison Leukocyte esterase Test strip Ql (U) large [facility] Nitrite Ql (U) Positive [facility] Protein Ql (U) 100 [facility] No Panel Informationon 09-10 Urine Occult Blood moderate [facility] Urine Cultureon 09-10-2024 Bacteria identified Cx Nom (U) ORGANISM: Escherichia coli (O:ESCCOL) [place] Count >100,000 Aerobic ALMA Charge (NMIC56) ---- [...] RESISTANT TO ALL B-LACTAM DRUGS. PERFORMED BY: [place] [address] PATHOLOGIST BOOKSTORE MANAGER DAVI BURGOS M.D. Normal [facility] Comment on above: Performed By: #### C UU #### [address] Urine cultureOrdered By: Litzy Perez on 09-10-2024 Bacteria identified Cx Nom (U) Escherichia coli Abnormal [facility] ECG 12-LEADon 08-27-[address] [place] [address] Electrocardiograph Report Signed Patient: BERTHA GALARZA MR#: [id number] : 1950 Acct:[id number] Age/Sex: 74 / F ADM Date: 08/26/24 Loc: CARD Attending Dr: Delmi Love OFFICE MACHINE INSPECTOR Ordering Physician: Delmi Love NP Date of Service: 08/26/24 Procedure(s): ECG 12 lead Accession Number(s): [id number] cc: [facility] Test Date: 2024-08-26 Pat Name: BERTHA GALARZA Department: Room: - Gender: Female Strategic Marketing Manager: : 1950 Requested By: DELMI LOVE Order Number: [id number] Reading MD: TRIXIE AVENDAÑO M.D. Measurements Intervals [place] Rate: 82 P: 79 [place]: 153 QRS: -70 QRSD: 120 T: 59 [...] AVENDAÑO Signed By: 08/27/24194208/27/241942 DD/ 1318 TD/TT: Medical Office Supervisor: [facility] Radiology, Radiologist, MD - 08/27/2024 The [place] [id number] Electrocardiograph Report Signed Patient: BERTHA GALARZA MR#: [id number] : 1950 Acct:[id number] Age/Sex: 74 / F ADM Date: 08/26/24 Loc: CARD Attending Dr: Delmi Love NP Ordering Physician: Delmi Love NP Date of Service: 08/26/24 Procedure(s): ECG 12 lead Accession Number(s): [id number] cc: [facility] Test Date: 2024-08-26 Pat Name: BERTHA GALARZA Department: Room: - Gender: Female Strategic Marketing Manager: : 1950 Requested By: DELMI LOVE Order Number: [id number] Reading MD: TRIXIE AVENDAÑO M.D. Measurements Intervals [place] Rate: 82 P: 79 [place]: 153 QRS: -70 QRSD: 120 T: 59 [...] AVENDAÑO Signed By: 08/27/24194208/27/241942 DD/ 1318 TD/TT: Medical Office Supervisor: [facility] ECG 12-LEADOrdered By: Radio logist Radiology on 08-27-2024 [facility] [employer] Work Phone: ALL CBC WITH AUTO DIFFon BASOPHILS ABSOLUTE AUTO 0 [facility] Basophils/100 WBC (Bld) 0.2 % 0.2 - 2.0 % [facility] Eosinophils/100 WBC (Bld) 1.4 % 0.9 - 7.0 % [facility] Erythrocyte distribution width (RBC) [Ratio] 12.3 % 11.0 - 15.0 % [facility] Hematocrit (Bld) [Volume fraction] 42.4 % 36.0 - 48.0 % [facility] [employer]car e Hemoglobin (Bld) [Mass/Vol] 14.3 g/dL 12.0 - 16.0 g/dL [facility] IMMATURE GRANULOCYTES ABS AUTO 0.02 [facility] Immature granulocytes/100 WBC (Bld) 0.2 % 0.0 - 0.5 % [facility] Interpretation and review of laboratory results Abnormal [facility] LYMPHOCYTES ABSOLUTE AUTO 1.7 [facility] Lymphocytes/100 WBC (Bld) 20.7 % 20.5 - 60.0 % [facility] MCH (RBC) [Entitic mass] 32.1 pg 26.7 - 34.0 pg [facility] MCHC (RBC) [Mass/Vol] 33.7 g/dL 29.9 - 35.2 g/dL [facility] MCV (RBC) [Entitic vol] 95.3 fL 81.0 - 99.0 fL [facility] MONOCYTES ABSOLUTE AUTO 0.8 [facility] Monocytes/100 WBC (Bld) 10.2 % 1.7 - 12.0 % [facility] NEUTROPHILS ABSOLUTE AUTO 5.4 [facility] Neutrophils/100 WBC (Bld) 67.3 % 43.0 - 75.0 % [facility] Platelet mean volume (Bld) [Entitic vol] 9.2 fL Low 9.5 - 13.5 fL [facility] TBH EO # 0.1 [facility] e TB PLT 230 [facility] e TB RBC 4.45 [facility] WBC 8.1 [facility] ECG 12-LEADon 08-26-2024 Radiology Study observation (narrative) [facility] US LOWER EXTREMITY VENO US INSUFFICIENCY BILATERALon 08-25-2024 [facility] US LOWER EXTREMITY VENOUS INSUFFICIENCY BILATERAL [...] report is generated using voice recognition reporting (Tauntr). On occasion [employer] erroneously drops words from the report or replaces the spoken word with similar sounding words. Please call with any questions/concerns regarding this report.* Dictated and transcribed 08/25/24/dpd This report has been electronically signed and approved by the interpreting radiologist. Normal Not Available No Panel Informationon 07-15 Radiology Study observation (narrative) [facility] US PVR/SEGMENTAL PRESSU RES LOWERon 07-15-2024 [facility] US PVR/SEGMENTAL PRESSURES LOWER EXAM: Lower [...] report is generated using voice recognition reporting (Tauntr). On occasion Kaazinge erroneously drops words from the report or [...] There is slight increase in SEPULVEDA angle. [employer] XR Foot - right 3 Viewson [...] There is slight increase in SEPULVEDA angle. [employer] [facility] CALCIUMon 06-05-2024 Calcium [Mass/Vol] 9.3 mg/dL 8.5 - 10. 1 mg/dL [place] [facility] [employer] Office Visiton 06-02-2024 Follow-up visit [id number] Bertha Galarza 1950 F Date Provider Department Center 06/02/2024 [id number] CESAR BORREGO CARD [facility] Family History Problem Relation Age of Onset Coronary artery disease Mother Coronary artery disease Sister Coronary artery disease Brother Family Status - Relation Status Age at Mother Sister Brother Level of Service:69237 [place] OFFICE/OUTPATIENT ESTABLISHED LOW MDM 20 MIN Normal [facility] Optical coherence tomography study reporton 05-25-2024 [employer] [employer] Radiology Study [facility] (narrative) [facility] 05-01-20[facility] L - -------- Specimen: [id number] Received: 05/01/24 Status: LUCAS Vlaeria Num: [id number] Spec Type: Surgical Subm Dr: Taiwo Rosa MD Tissues: A Colon Biopsy (CECUM COLON POLYPS) B Colon Biopsy (TRANSVERSE COLON POLYPS) C Colon Biopsy (DESCENDING COLON POLYPS) D Colon Biopsy (SIGMOID COLON POLYP) Procedures: RANDALL/Manuel, Gross/Micro L4/4 -------- Age/ Patient Sex Location Account Attending Physician -------- DonitaDonnaBertha A 74/F [id number] Taiwo Rosa MD -------- SPEC NUM: [id number] RECD: 05/01/24 STATUS: LUCAS LIN NUM: [id number] ANGELITA: 05/01/24-[address] [facility] [address]: Taiwo Rosa MD ENTERED: 05/01/[address] [facility] [address]: ELI TYPE: Surgical DEPT: S ENTERED BY: [id number] RECV BY: [id number] ORDERED: HE/10, Gross/Micro L4/4 ORDERED: HE/10, Gross/Micro [...] submitted in a single cassette. (1, ns, [id number] A) GENE -------- Specimen: [id number] Received: 05/01/24 Status: LUCAS Lin Num: [id number] Spec Type: Surgical Subm Dr: Taiwo Rosa MD Tissues: A Colon Biopsy (CECUM COLON POLYPS) B Colon Biopsy (TRANSVERSE COLON POLYPS) C Colon Biopsy (DESCENDING COLON POLYPS) D Colon Biopsy (SIGMOID COLON POLYP) Procedures: 10, Gross/Micro L4/4 -------- Patient: Bertha Galarza [id number] (Continued) -------- Specimen: S2 Received: 05/01/24 (Continued) Gross Description (Continued) Signed (signature on file) Monica__ Rik Juárez MD 05/04/24 1453 -------- Specimen: [id number] Received: 05/01/24 Status: LUCAS Lin Num: [id number] Spec Type: Surgical Subm Dr: Taiwo Rosa MD Tissues: A Colon Biopsy (CECUM COLON POLYPS) B Colon Biopsy (TRANSVERSE COLON POLYPS) C Colon Biopsy (DESCENDING COLON POLYPS) D Colon Biopsy (SIGMOID COLON POLYP) Procedures: , Gross/Micro L4/4 -------- Patient: Bertha Galarza [id number] (Continued) -------- Specimen: S2 Received: 05/01/24 (Continued) [...] specimen entirely submitted in B2. (2, ns, [id number] B) Part C is received in formalin labeled with the patients name, date of , and descending colon are 2 sen-boles, focally erythematous, friable, 0.3 and 0.5 cm in greatest dimension polypoid fragments. The specimen is entirely submitted in a single cassette. (1, ns, [id number] C) J Part D is received in formalin labeled [...] cassette. (1, ns, [id number] D) CPT Codes 84883k9 -------- (more content not included)... Normal [facility] MLR HEMOGLOBIN A1Con 024 Glucose [Mass/Vol] 123 mg/dL [facility] HbA1c (Bld) [Mass fraction] 5.9 % 4.5 - 6.2 % [facility] Comment on above: ADA RECOMMENDED LIMI T 4.0 - 6.0 ADA THERAPEUTIC TARGET < 7.0 ACTION SUGGESTED > 7.0 [facility] ALL LIPID PROFILE (FASTING)o n 02-18-2024 CHOL HDL RATIO 3.3 [facility] hcare Comment on above: 3.3 - 4.4 LOW RISK 4.4 - 7.1 AVERAGE RISK 7.1 - 11.0 MODERATE RISK >11.0 HIGH RISK Cholesterol [Mass/Vol] 160 mg/dL NINF - 200 mg/dL [facility] Cholesterol in HDL [Mass/Vol] 49 mg/dL 40 - 60 mg/dL [facility] Comment on above: > or =60 mg/dl - LOW CARDIOVASCULAR RISK <40 mg/dl - HIGH CARDIOVASCULAR RISK Interpretation and review of laboratory results Abnormal [facility] re Magnesium [Mass/Vol] 49 mg/dL [facility] Comment on above: <100 mg/dl OPTIMAL 100-129 mg/dl NEAR OR ABOVE OPTIMAL 130-159 mg/dl BORDERLINE HIGH 160-189 mg/dl HIGH >190 mg/dl VERY HIGH Magnesium [Mass/Vol] 62.6 mg/dL [facility] Triglyceride [Mass/Vol] 313 mg/dL High NINF - 150 mg/dL [facility] TSH W/REFLEX T4on 01-22-2024 TSH Qn 0.892 m[IU]/L [facility] Health care [facility] Office Visiton 12-04-2023 Follow-up visit [id number] Bertha Galarza 1950 F Date Provider Department Center 12/04/2023 [id number] CESAR BORREGO [facility] Family History Problem Relation Age of Onset Coronary artery disease Mother Coronary artery disease Sister Coronary artery disease Brother Family Status - Relation Status Age at Mother Sister Brother Level of Service:[address] [place] OFFICE/OUTPATIENT NEW LOW MDM 30 MINUTES Normal [facility] DIRECT LDLon 07-03-2022 Cholesterol in LDL [Mass/Vol] 174 mg/dL Normal [facility] Comment on above: Performed By: #### D LDL, LIPID, TSH #### [facility] [address] [address] [address] Radha Farris DLDL NORMAL SEE BELOW Normal [facility] Comment on above: Result Comment: <100 mg/dl OPTIMAL 100 - 129 mg/dl NEAR OR ABOVE OPTIMAL 130 - 159 mg/dl BORDERLINE HIGH 160 - 189 mg/dl HIGH >190 mg/dl VERY HIGH Performed By: #### D LDL, LIPID, TSH #### [facility] [address] [address] [address] Radha Farris LIPID PROFILEon 07-03-2022 CHOL-HDL RATIO NORM SEE BELOW Normal [facility] Comment on above: Result Comment: 3.3 - 4.4 LOW RISK 4.4 - 7.1 AVERAGE RISK 7.1 - 11.0 MODERATE RISK >11.0 HIGH RISK Performed By: #### D LDL, LIPID, TSH #### [facility] [address] [address] [address] Radha Farris Cholesterol [Mass/Vol] 395 mg/dL Critically high <=200 [facility] Comment on above: Performed By: #### D LDL, LIPID, TSH #### [facility] [address] [address] [address] Radha Farris Cholesterol in HDL [Mass/Vol] 35 mg/dL Critically low 40-60 [facility] Comment on above: Performed By: #### D LDL, LIPID, TSH #### [facility] [address] [address] [address] Radha Farris Cholesterol.total/C holesterol in HDL [Mass ratio] 11.3 {ratio} Normal [facility] Comment on above: Performed By: #### D LDL, LIPID, TSH #### [facility] [address] [address] [address] Radha Farris HDL NORMAL > or = 60 mg/dl - LO W CARDIOVASCULAR RISK <40 mg/dl - HIGH CARDIOVASCULAR RISK Normal [facility] Comment on above: Performed By: #### D LDL, LIPID, TSH #### [facility] [address] [address] [address] Radha Farris Triglyceride [Mass/Vol] 935 mg/dL Critically high <=150 [facility] Comment on above: Performed By: #### D LDL, LIPID, TSH #### [facility] [address] [address] [address] Radha Farris TSHon 07-03-2022 TSH 0.906 uIU/mL Normal 0.358-3.740 [facility] Comment on above: Performed By: #### D LDL, LIPID, TSH #### [facility] [address] [place] [address] Dr. Radha Farris XR LSPINE 2_3 VIEWSon [...] DR JOSE DAVID GODWIN D.O. Admission #: [id number] Family : Order #: [id number] CLICK HERE TO VIEW EXAM RADIOLOGY REPORT [...] T4 [Mass/Vol] 9.60 ug/dL Normal 4.80-13.90 [facility] Comment on above: Performed By: #### T 4, TSH #### [facility] [address] [address] [address] Radha Farris TSHon 02-06-2022 TSH 0.188 uIU/mL Critically low 0.358-3.[address] [facility] Comment on above: Performed By: #### T 4, TSH #### [facility] [address] [address] [address] Radha Farris Urine culture routineOrdered By: Yuliet Perez on 11-29-2021 Bacteria identified Cx Nom (U) Escherichia coli [facility] Urinalysis - AUTOMATEDon Appearance (U) clowdy [employer] Other Bilirubin Ql (U) Negative [employer] Other Color (U) yellow [employer] Other Glucose Ql (U) Negative [employer] Other Hemoglobin Ql (U) small [employer] Other Ketones Ql (U) Negative [employer] Other Leukocyte esterase Test strip Ql (U) large [employer] Other Nitrite Ql (U) Negative [employer] Other pH (U) 6.0 [pH] [employer] Other Protein Ql (U) 30 [employer] Other Specific gravity (U) [Rel density] 1.020 [employer] Other Urobilinogen (U) [Mass/Vol] 0.2 mg/dL [employer] Other Urinalysis - AUTOMATED [employer] Other Urine Cultureon 11-26-2021 Urine Culture 20,000 [employer] Other Urine Culture <16 Susceptible [employer] Other Urine Culture <8 Susceptible [employer] Other Urine Culture <4 Susceptible [facility] Other Urine Culture <2 Susceptible [facility] Other Urine Culture <1 Susceptible [facility] Other Urine Culture <0.5 Susceptible [employer] Other Urine Culture <32 Susceptible [facility] Other Urine Culture <2/38 Susceptible [employer] Other Vital Signs Date Time Vital Sign Value Performing Clinician Facility 11-09-2024 15:15-0400 Body mass index (BMI) [Ratio] 32.35 kg/m2 Delmi Chrisz OFFICE MACHINE INSPECTOR Work Phone: [facility] 11-09-2024 15:15-0400 Body temperature 98.49 [degF] Delmi Chrisz OFFICE MACHINE INSPECTOR Work Phone: [facility] 11-09-2024 15:15-0400 Body weight 90.9 kg Delmi Chrisz OFFICE MACHINE INSPECTOR Work Phone: [facility] 11-09-2024 15:15-0400 Diastolic blood pressure 76 mm[Hg] Delmi Karenholz OFFICE MACHINE INSPECTOR Work Phone: [facility] 11-09-2024 15:15-0400 Heart rate 84 /min Delmi Karenholz OFFICE MACHINE INSPECTOR Work Phone: [facility] 11-09-2024 15:15-0400 Respiratory rate 18 /min Delmi Chrisz OFFICE MACHINE INSPECTOR Work Phone: [facility] 11-09-2024 15:15-0400 SaO2% (BldA) [Mass fraction] 93 % Delmi Chrisz OFFICE MACHINE INSPECTOR Work Phone: [facility] 11-09-2024 15:15-0400 Systolic blood pressure 132 mm[Hg] Delmi Aichholz OFFICE MACHINE INSPECTOR Work Phone: [facility] 11-04-2024 18:28-0400 Body height 167.64 cm Kunal Ortiz OFFICE MACHINE INSPECTOR-C Work Phone: [facility] 11-04-2024 18:28-0400 Body mass index (BMI) [Ratio] 32.3 kg/m2 Kunal Ortiz OFFICE MACHINE INSPECTOR-C Work Phone: [facility] 11-04-2024 18:28-0400 Body temperature 97.4 [degF] Kunal Ortiz OFFICE MACHINE INSPECTOR-C Work Phone: [facility] 11-04-2024 18:28-0400 Body weight 90.71 kg Kunal Ortiz OFFICE MACHINE INSPECTOR-C Work Phone: [facility] 11-04-2024 18:28-0400 Diastolic blood pressure 73 mm[Hg] Kunal Ortiz OFFICE MACHINE INSPECTOR-C Work Phone: [facility] 11-04-2024 18:28-0400 Heart rate 101 /min Kunal Ortiz OFFICE MACHINE INSPECTOR-C Work Phone: [facility] 11-04-2024 18:28-0400 Respiratory rate 18 /min Kunal Ortiz OFFICE MACHINE INSPECTOR-C Work Phone: [facility] 11-04-2024 18:28-0400 SaO2% (BldA) [Mass fraction] 95 % Knual Ortiz OFFICE MACHINE INSPECTOR-C Work Phone: [facility] 11-04-2024 18:28-0400 Systolic blood pressure 142 mm[Hg] Kunal Ortiz OFFICE MACHINE INSPECTOR-C Work Phone: [facility] 10-14-2024 10:34-0400 Body height 167.6 cm Darien Blanca DPM Work Phone: [facility] 10-14-2024 10:34-0400 Body mass index (BMI) [Ratio] 32.77 kg/m2 Darien Blanca DPM Work Phone: [facility] 10-14-2024 10:34-0400 Body weight 92.08 kg Darien Blanca DPM Work Phone: [facility] 09-24-2024 15:38-0400 Body mass index (BMI) [Ratio] 32.77 kg/m2 Delmi Love OFFICE MACHINE INSPECTOR Work Phone: [facility] 09-24-2024 15:38-0400 Body temperature 98.29 [degF] Delmi Love OFFICE MACHINE INSPECTOR Work Phone: [facility] 09-24-2024 15:38-0400 Body weight 92.08 kg Delmi Love OFFICE MACHINE INSPECTOR Work Phone: [facility] 09-24-2024 15:38-0400 Diastolic blood pressure 64 mm[Hg] Delmi Perezz OFFICE MACHINE INSPECTOR Work Phone: [facility] 09-24-2024 15:38-0400 Heart rate 76 /min Delmi Love OFFICE MACHINE INSPECTOR Work Phone: [facility] 09-24-2024 15:38-0400 Respiratory rate 18 /min Delmi Love OFFICE MACHINE INSPECTOR Work Phone: [facility] 09-24-2024 15:38-0400 SaO2% (BldA) [Mass fraction] 93 % Delmi Love OFFICE MACHINE INSPECTOR Work Phone: [facility] 09-24-2024 15:38-0400 Systolic blood pressure 112 mm[Hg] Delmi Love OFFICE MACHINE INSPECTOR Work Phone: [facility] 09-10-2024 14:22-0400 Body height 167.64 cm [facility] 09-10-2024 14:22-0400 Body mass index (BMI) [Ratio] 32.5 kg/m2 [facility] 09-10-2024 14:22-0400 Body temperature 97.7 [degF] [facility] 09-10-2024 14:22-0400 Body weight 91.34 kg [facility] 09-10-2024 14:22-0400 Diastolic blood pressure 69 mm[Hg] [facility] 09-10-2024 14:22-0400 Heart rate 83 /min [facility] 09-10-2024 14:22-0400 Respiratory rate 18 /min [facility] 09-10-2024 14:22-0400 SaO2% (BldA) [Mass fraction] 95 % [facility] 09-10-2024 14:22-0400 Systolic blood pressure 133 mm[Hg] [facility] 08-18-2024 16:03-0400 Body height 165.1 cm Mike Gant MD Work Phone: [facility] 08-18-2024 16:03-0400 Body mass index (BMI) [Ratio] 33.95 kg/m2 Mike Gant MD Work Phone: [facility] 08-18-2024 16:03-0400 Body weight 92.53 kg Mike Gant MD Work Phone: [facility] 08-18-2024 16:03-0400 Diastolic blood pressure 76 mm[Hg] Mike Gant MD Work Phone: [facility] 08-18-2024 16:03-0400 Heart rate 83 /min Mike Gant MD Work Phone: [facility] 08-18-2024 16:03-0400 SaO2% (BldA) [Mass fraction] 94 % Mike Gant MD Work Phone: [facility] 08-18-2024 16:03-0400 Systolic blood pressure 120 mm[Hg] Mike Gant MD Work Phone: [facility] 08-12-2024 13:44-0400 Body mass index (BMI) [Ratio] 32.89 kg/m2 Delmi Love OFFICE MACHINE INSPECTOR Work Phone: [facility] 08-12-2024 13:44-0400 Body temperature 97.59 [degF] Delmi Love OFFICE MACHINE INSPECTOR Work Phone: [facility] 08-12-2024 13:44-0400 Body weight 92.44 kg Delmi Aichholz OFFICE MACHINE INSPECTOR Work Phone: [facility] 08-12-2024 13:44-0400 Diastolic blood pressure 72 mm[Hg] Delmi Aichholz OFFICE MACHINE INSPECTOR Work Phone: [facility] 08-12-2024 13:44-0400 Heart rate 82 /min Delmi Aichholz OFFICE MACHINE INSPECTOR Work Phone: [facility] 08-12-2024 13:44-0400 Respiratory rate 20 /min Delmi Aichholz OFFICE MACHINE INSPECTOR Work Phone: [facility] 08-12-2024 13:44-0400 SaO2% (BldA) [Mass fraction] 94 % Delmi Aichholz OFFICE MACHINE INSPECTOR Work Phone: [facility] 08-12-2024 13:44-0400 Systolic blood pressure 120 mm[Hg] Delmi Aichholz OFFICE MACHINE INSPECTOR Work Phone: [facility] 07-16-2024 11:41-0400 Body mass index (BMI) [Ratio] 32.64 kg/m2 Delmi Aichholz OFFICE MACHINE INSPECTOR Work Phone: [facility] 07-16-2024 11:41-0400 Body temperature 98.29 [degF] Delmi Aichholz OFFICE MACHINE INSPECTOR Work Phone: [facility] 07-16-2024 11:41-0400 Body weight 91.72 kg Delmi Aichholz OFFICE MACHINE INSPECTOR Work Phone: [facility] 07-16-2024 11:41-0400 Diastolic blood pressure 70 mm[Hg] Delmi Aichholz OFFICE MACHINE INSPECTOR Work Phone: [facility] 07-16-2024 11:41-0400 Heart rate 95 /min Delmi Aichholz OFFICE MACHINE INSPECTOR Work Phone: [facility] 07-16-2024 11:41-0400 Respiratory rate 18 /min Delmi Aichholz OFFICE MACHINE INSPECTOR Work Phone: [facility] 07-16-2024 11:41-0400 SaO2% (BldA) [Mass fraction] 97 % Delmi Aichholz OFFICE MACHINE INSPECTOR Work Phone: [facility] 07-16-2024 11:41-0400 Systolic blood pressure 108 mm[Hg] Delmi Love OFFICE MACHINE INSPECTOR Work Phone: [facility] 07-15-2024 10:32-0400 Body height 167.6 cm Darien Blanca DPM Work Phone: [facility] 07-15-2024 10:32-0400 Body mass index (BMI) [Ratio] 32.01 kg/m2 Darien Mouraher DPM Work Phone: [facility] 07-15-2024 10:32-0400 Body weight 89.95 kg Darien Blanca DPM Work Phone: [facility] 05-28-2024 10:24-0500 Body height 167.6 cm Kunal Ortiz OFFICE MACHINE INSPECTOR Work Phone: [facility] 05-28-2024 10:24-0500 Body mass index (BMI) [Ratio] 32.01 kg/m2 Kunal Ortiz OFFICE MACHINE INSPECTOR Work Phone: [facility] 05-28-2024 10:24-0500 Body temperature 96.3 [degF] Kunal Ortiz OFFICE MACHINE INSPECTOR Work Phone: [facility] 05-28-2024 10:24-0500 Body weight 89.95 kg Kunal Ortiz OFFICE MACHINE INSPECTOR Work Phone: [facility] 05-28-2024 10:24-0500 Diastolic blood pressure 68 mm[Hg] Kunal Ortiz OFFICE MACHINE INSPECTOR Work Phone: [facility] 05-28-2024 10:24-0500 Heart rate 67 /min Kunal Ortiz OFFICE MACHINE INSPECTOR Work Phone: [facility] 05-28-2024 10:24-0500 Respiratory rate 16 /min Kunal Ortiz OFFICE MACHINE INSPECTOR Work Phone: [facility] 05-28-2024 10:24-0500 SaO2% (BldA) [Mass fraction] 95 % Kunal Ortiz OFFICE MACHINE INSPECTOR Work Phone: [facility] 05-28-2024 10:24-0500 Systolic blood pressure 122 mm[Hg] Kunal Ortiz OFFICE MACHINE INSPECTOR Work Phone: [facility] 05-01-2024 11:20-0500 Diastolic blood pressure 60 mm[Hg] Kunal Ortiz OFFICE MACHINE INSPECTOR-C Work Phone: [facility] 05-01-2024 11:20-0500 Heart rate 70 /min Kunal Ortiz OFFICE MACHINE INSPECTOR-C Work Phone: [facility] 05-01-2024 11:20-0500 Respiratory rate 16 /min Kunal Ortiz OFFICE MACHINE INSPECTOR-C Work Phone: [facility] 05-01-2024 11:20-0500 SaO2% (BldA) [Mass fraction] 99 % Kunal Ortiz OFFICE MACHINE INSPECTOR-C Work Phone: [facility] 05-01-2024 11:20-0500 Systolic blood pressure 112 mm[Hg] Kunal Ortiz OFFICE MACHINE INSPECTOR-C Work Phone: [facility] 05-01-2024 09:46-0500 Body height 167.64 cm Kunal Ortiz OFFICE MACHINE INSPECTOR-C Work Phone: [facility] 05-01-2024 09:46-0500 Body weight 86.18 kg Kunal Ortiz OFFICE MACHINE INSPECTOR-C Work Phone: [facility] 04-13-2024 11:28-0500 Body height 167.6 cm Delmi Love OFFICE MACHINE INSPECTOR Work Phone: [facility] 04-13-2024 11:28-0500 Body mass index (BMI) [Ratio] 31.64 kg/m2 Delmi Love OFFICE MACHINE INSPECTOR Work Phone: [facility] 04-13-2024 11:28-0500 Body temperature 97.59 [degF] Delmi Karenholz OFFICE MACHINE INSPECTOR Work Phone: [facility] 04-13-2024 11:28-0500 Body weight 88.91 kg Delmilea Jonesholz OFFICE MACHINE INSPECTOR Work Phone: [facility] 04-13-2024 11:28-0500 Diastolic blood pressure 78 mm[Hg] Delmi Magdalenahholz OFFICE MACHINE INSPECTOR Work Phone: [facility] 04-13-2024 11:28-0500 Heart rate 86 /min Delmi Magdalenahholz OFFICE MACHINE INSPECTOR Work Phone: [facility] 04-13-2024 11:28-0500 Respiratory rate 19 /min Delmi Karenholz OFFICE MACHINE INSPECTOR Work Phone: [facility] 04-13-2024 11:28-0500 SaO2% (BldA) [Mass fraction] 95 % Delmi Karenholz OFFICE MACHINE INSPECTOR Work Phone: [facility] 04-13-2024 11:28-0500 Systolic blood pressure 110 mm[Hg] Delmi Magdalenahholz OFFICE MACHINE INSPECTOR Work Phone: [facility] 02-27-2024 10:36-0500 Body height 167.6 cm Kunal Ortiz OFFICE MACHINE INSPECTOR Work Phone: [facility] 02-27-2024 10:36-0500 Body mass index (BMI) [Ratio] 31.51 kg/m2 Kunal Ortiz OFFICE MACHINE INSPECTOR Work Phone: [facility] 02-27-2024 10:36-0500 Body temperature 97.59 [degF] Kunal Ortzi OFFICE MACHINE INSPECTOR Work Phone: [facility] 02-27-2024 10:36-0500 Body weight 88.54 kg Kunal Ortiz OFFICE MACHINE INSPECTOR Work Phone: [facility] 02-27-2024 10:36-0500 Diastolic blood pressure 64 mm[Hg] Kunal Ortiz OFFICE MACHINE INSPECTOR Work Phone: [facility] 02-27-2024 10:36-0500 Heart rate 78 /min Kunal Ortiz OFFICE MACHINE INSPECTOR Work Phone: [facility] 02-27-2024 10:36-0500 Respiratory rate 16 /min Kunal Ortiz OFFICE MACHINE INSPECTOR Work Phone: [facility] 02-27-2024 10:36-0500 Systolic blood pressure 128 mm[Hg] Kunal Ortiz OFFICE MACHINE INSPECTOR Work Phone: [facility] 02-13-2024 13:56-0400 Body height 167.6 cm Ben Roe DPM Work Phone: [facility] 02-13-2024 13:56-0400 Body mass index (BMI) [Ratio] 32.28 kg/m2 Ben Roe DPM Work Phone: [facility] 02-13-2024 13:56-0400 Body weight 90.72 kg Ben Roe DPM Work Phone: [facility] 02-13-2024 13:56-0400 Diastolic blood pressure 80 mm[Hg] Ben Roe DPM Work Phone: [facility] 02-13-2024 13:56-0400 Heart rate 78 /min Ben Roe DPM Work Phone: [facility] 02-13-2024 13:56-0400 Systolic blood pressure 129 mm[Hg] Ben Roe DPM Work Phone: [facility] 12-19-2023 11:36-0400 Body height 167.6 cm Kunal Ortiz OFFICE MACHINE INSPECTOR Work Phone: [facility] 12-19-2023 11:36-0400 Body mass index (BMI) [Ratio] 31.64 kg/m2 Kunal Ortiz OFFICE MACHINE INSPECTOR Work Phone: [facility] 12-19-2023 11:36-0400 Body temperature 97.59 [degF] Kunal Jizpatrick OFFICE MACHINE INSPECTOR Work Phone: [facility] 12-19-2023 11:36-0400 Body weight 88.91 kg Kunal Petersonpatrick OFFICE MACHINE INSPECTOR Work Phone: [facility] 12-19-2023 11:36-0400 Diastolic blood pressure 68 mm[Hg] Kunal Ortiz OFFICE MACHINE INSPECTOR Work Phone: [facility] 12-19-2023 11:36-0400 Heart rate 75 /min Kunal Jizpatrick OFFICE MACHINE INSPECTOR Work Phone: [facility] Comment on above: 95% 02 12-19-2023 11:36-0400 Systolic blood pressure 118 mm[Hg] Kunal Ortiz OFFICE MACHINE INSPECTOR Work Phone: [facility] 11-26-2021 11:15-0400 Body height 167.64 cm Yuliet Perez Other [facility] Other 11-26-2021 11:15-0400 Body mass index (BMI) [Ratio] 30.66 kg/m2 Yuliet Perez Other [facility] Other 11-26-2021 11:15-0400 Body temperature 98 [degF] Yuliet Perez Other [facility] Other 11-26-2021 11:15-0400 Body weight 86.18 kg Yuliet Perez Other [employer] Other 11-26-2021 11:15-0400 Diastolic blood pressure 61 mm[Hg] Yuliet Perez Other [employer] Other 11-26-2021 11:15-0400 SaO2% (BldA) [Mass fraction] 98 % Yuliet Perez Other [employer] Other 11-26-2021 11:150400 Systolic blood pressure 117 mm[Hg] Yuliet Perez Other [employer] Other Encounters Encounter Date Encounter Type Care Provider Facility Start: 12-25-2024 End: 12-25-2024 Bamboo flowsheet Ame ROA Work Phone: [facility] Start: 12-25-2024 End: 12-25-2024 Bamboo flowsheet Ame ROA Work Phone: [facility] Start: 12-25-2024 End: 12-25-2024 Office outpatient visit 25 minutes Ame ROA Work Phone: [facility] Comment on above: Left hand pain (Prim ramón Dx); Trigger middle finger of left hand; Carpal tunnel syndrome of left wrist Start: 12-25-2024 End: 12-25-2024 ambulatory AME HONG Not Available Start: 11-13-2024 End: 11-13-2024 ambulatory [facility] Start: 11-10-2024 End: 11-10-2024 Refill Delmi Love OFFICE MACHINE INSPECTOR Work Phone: [facility] Comment on above: Recurrent UTI (urina ry tract infection) (Primary Dx) Start: 11-09-2024 End: 11-09-2024 Office outpatient visit 25 minutes Delmi Love NP Work Phone: [facility] Comment on above: Recurrent UTI (urina ry tract infection) (Primary Dx); Numbness and tingling of both feet; Spondylosis of cervical spine; Tobacco dependence; Other fatigue; Cigarette nicotine dependence without complication; Lung cancer screening declined by patient Start: 11-09-2024 End: 11-09-2024 ambulatory DELMI LOVE Not Available Start: 11-09-2024 End: 11-09-2024 Bamboo flowsheet Delmi Love OFFICE MACHINE INSPECTOR Work Phone: [facility] Start: 11-09-2024 End: 11-09-2024 Bamboo flowsheet Delmi Love OFFICE MACHINE INSPECTOR Work Phone: [facility] Start: 11-09-2024 End: 11-09-2024 Telephone encounter Delmi Love OFFICE MACHINE INSPECTOR Work Phone: [facility] Start: 11-04-2024 End: 11-04-2024 Departed Referred Natalee Wang [facility] [facility] -[facility] [place] Work Phone: Start: 11-04-2024 End: 11-04-2024 ambulatory Kunal Ortiz OFFICE MACHINE INSPECTOR-C Work Phone: [facility] Work Phone: Start: 11-04-2024 End: 11-04-2024 Patient encounter procedure Natalee Wang [facility] Work Phone: Start: 11-02-2024 End: 11-02-2024 Refill Delmi Love OFFICE MACHINE INSPECTOR Work Phone: [facility] Comment on [...] 10-20-2024 End: 10-20-2024 Telephone encounter Delmi Love OFFICE MACHINE INSPECTOR Work Phone: [facility] Start: 10-19-2024 End: 10-19-2024 ambulatory GAURAV SCHMITT [facility] Start: 10-14-2024 End: 10-14-2024 ambulatory DARIEN [...] 09-29-2024 End: 09-29-2024 Orders Only Delmi Love OFFICE MACHINE INSPECTOR Work Phone: [facility] Comment on above: Numbness and tinglin g of both feet (Primary Dx); Spondylosis of cervical spine; Acquired spondylolisthesis of lumbosacral region Start: 09-28-2024 End: 09-28-2024 ambulatory DELMI KATE Not Available Start: 09-25-2024 End: 09-25-2024 Telephone encounter Jamia Guevara MD Work Phone: [facility] Start: 09-24-2024 End: 09-24-2024 Office outpatient visit 25 minutes Delmi Kate OFFICE MACHINE INSPECTOR Work Phone: [facility] Comment on above: Numbness and tinglin g of both feet (Primary Dx); Tobacco dependence; Other fatigue; Hypothyroidism, unspecified type ; Lumbar back pain; Neck pain; Other chest pain Start: 09-24-2024 End: 09-24-2024 ambulatory DELMI KATE Not Available Start: 09-24-2024 End: 09-24-2024 Bamboo flowsheet Delmi Kate OFFICE MACHINE INSPECTOR Work Phone: [facility] Start: 09-24-2024 End: 09-24-2024 Bamboo flowsheet Delmi Kate OFFICE MACHINE INSPECTOR Work Phone: [facility] Start: 09-14-2024 End: 09-14-2024 Refill Delmi Aichholz OFFICE MACHINE INSPECTOR Work Phone: [facility] Comment on above: UTI symptoms (Primar y Dx) Start: 09-10-2024 End: 09-10-2024 Departed Referred Yuliet Perez [employer]IST Work Phone: [facility] [place] Work Phone: Start: 09-10-2024 End: 09-10-2024 ambulatory Yuliet Perez [facility] Work Phone: Start: 09-10-2024 End: 09-10-2024 Patient encounter procedure [facility] Work Phone: Start: 08-26-2024 End: 08-27-2024 Clinisync Result Encounter Delmi Kate OFFICE MACHINE INSPECTOR Work Phone: [facility] Unsolicited Start: 08-26-2024 End: 08-27-2024 Clinisync Result Encounter Delmi Aichholz OFFICE MACHINE INSPECTOR Work Phone: [facility] Unsolicited Start: 08-25-2024 End: 08-25-2024 Orders Only Delmi Aichholz OFFICE MACHINE INSPECTOR Work Phone: [facility] Comment on above: Vitamin D deficiency (Primary Dx) Start: 08-19-2024 End: 08-19-2024 Refill Delmi Aichholz OFFICE MACHINE INSPECTOR Work Phone: [facility] Comment on above: Vitamin D deficiency (Primary Dx) Start: 08-18-2024 End: 08-18-2024 ambulatory MIKE GANT [facility] Start: 08-18-2024 End: 08-18-2024 Office outpatient new 45 minutes Mike Gant MD Work Phone: [facility] Comment on above: Lower extremity tiara a (Primary Dx); Dyslipidemia Start: 08-17-2024 End: 08-17-2024 Telephone encounter Shelli Francis CMA [facility] Start: 08-12-2024 End: 08-12-2024 Bamboo flowsheet Delmi Aicloreleiholz OFFICE MACHINE INSPECTOR Work Phone: [facility] Start: 08-12-2024 End: 08-12-2024 Bamboo flowsheet Delmi Aichholz OFFICE MACHINE INSPECTOR Work Phone: [facility] Start: 08-12-2024 End: 08-12-2024 Office outpatient visit 25 minutes Delmi Kate OFFICE MACHINE INSPECTOR Work Phone: [facility] Comment on above: Other fatigue (Prima ry Dx); Hypothyroidism, unspecified type (CMS/HCC); Acute otitis externa of left ear, unspecified type; Mixed hyperlipidemia (CMS/HCC); Tobacco dependence; Hyperlipidemia, unspecified hyperlipidemia type (CMS/HCC); Numbness and tingling of both feet; Vitamin D deficiency; Family history of coronary artery disease Start: 08-12-2024 End: 08-12-2024 ambulatory DELMI AICHHOLZ Not Available Start: 08-12-2024 ambulatory [facility] Start: 08-11-2024 End: 08-11-2024 Refill Delmi Aichholz OFFICE MACHINE INSPECTOR Work Phone: [facility] Comment on above: Hyperlipidemia, unsp ecified hyperlipidemia type (CMS/HCC) Start: 08-05-2024 End: 08-05-2024 Refill Delmi Aichholz OFFICE MACHINE INSPECTOR Work Phone: [facility] Comment on above: Hypothyroidism, unsp ecified type (CMS/HCC) Start: 07-23-2024 End: 07-24-2024 Refill Delmi Aichholz OFFICE MACHINE INSPECTOR Work Phone: [facility] Comment on above: Mixed hyperlipidemia (CMS/HCC) Start: 07-21-2024 End: 07-21-2024 Telephone encounter Darien Blanca DPM Work Phone: [facility] Start: 07-20-2024 End: 07-20-2024 ambulatory DARIEN BLANCA Not Available Start: 07-16-2024 End: 07-17-2024 Telephone encounter Darien Blanca DPM Work Phone: [facility] Comment on above: Advice Only (Rx Frazier ge Request) Start: 07-16-2024 End: 07-16-2024 Office outpatient visit 10 minutes Delmi Love OFFICE MACHINE INSPECTOR Work Phone: [facility] Comment on above: Acute otitis externa of left ear, unspecified type (Primary Dx); Tobacco dependence Start: 07-16-2024 End: 07-16-2024 ambulatory DELMI LOVE Not Available Start: 07-15-2024 End: 07-15-2024 Bamboo flowsheet Darien Blanca DPM Work Phone: [facility] Start: 07-15-2024 End: 07-15-2024 Bamboo flowsheet Darien Blanca DPM Work Phone: [facility] Start: 07-15-2024 End: 07-15-2024 Office outpatient visit 25 minutes Darien Blanca DPM Work Phone: [facility] Comment on above: Neuropathy, idiopath ic (Primary Dx); Neuritis; Pain in both feet; Peripheral vascular disease (CMS/HCC); Smoker Start: 07-15-2024 End: 07-15-2024 ambulatory DARIEN BLANCA Not Available Start: 06-07-2024 End: 06-07-2024 Orders Only Delmi Love OFFICE MACHINE INSPECTOR Work Phone: [facility] Comment on above: Prediabetes (Primary Dx); Mixed hyperlipidemia (CMS/HCC); Tobacco dependence Vitamin D deficiency (Primary Dx) Start: 06-05-2024 End: 06-05-2024 Clinisync Result Encounter Kunal Ortiz OFFICE MACHINE INSPECTOR Work Phone: [facility] External Department Unsolicited Start: 06-05-2024 End: 06-05-2024 Clinisync Result Encounter Kunal Ortiz OFFICE MACHINE INSPECTOR Work Phone: [facility] Department Unsolicited Start: 06-02-2024 End: 06-02-2024 [facility]ulatory [facility] Start: 05-28-2024 End: 05-28-2024 Bamboo flowsheet Kunal Ortiz OFFICE MACHINE INSPECTOR Work Phone: [facility] Start: 05-28-2024 End: 05-28-2024 Bamboo flowsheet Kunal Ortiz OFFICE MACHINE INSPECTOR Work Phone: [facility] Start: 05-28-2024 End: 05-28-2024 Office outpatient visit 15 minutes Kunal Ortiz OFFICE MACHINE INSPECTOR Work Phone: [facility] Comment on [...] Start: 05-01-2024 Non-patient / Non-visit Jessica Ortiz OFFICE MACHINE INSPECTOR-C Work Phone: [facility] Work Phone: Start: 05-01-2024 End: 05-01-2024 Admission to same day surgery center Kunal Ortiz OFFICE MACHINE INSPECTOR-C Work Phone: [facility] Work Phone: Start: 05-01-2024 End: 01-17-2025 ambulatory Kunal Ortiz OFFICE MACHINE INSPECTOR-C Work Phone: [facility] Work Phone: Start: 04-21-2024 End: 04-21-2024 Orders Only Kunal Ortiz OFFICE MACHINE INSPECTOR Work Phone: [facility] Comment on above: Age-related osteopor osis without current pathological fracture (CMS/HCC) (Primary Dx) Start: 04-13-2024 End: 04-13-2024 Office outpatient visit 15 minutes Delmi Love OFFICE MACHINE INSPECTOR Work Phone: [facility] Comment on above: Acute non-recurrent maxillary sinusitis (Primary Dx); Tobacco dependence; Acute URI Start: 04-13-2024 End: 04-13-2024 ambulatory DELMI LOVE Not Available Start: 03-26-2024 End: 03-26-2024 Orders Only Kunal Ortiz OFFICE MACHINE INSPECTOR Work Phone: [facility] Comment on [...] End: 03-19-2024 Clinisync Result Encounter Kunal Ortiz OFFICE MACHINE INSPECTOR Work Phone: [facility] External Department Unsolicited Start: 03-19-2024 End: 03-19-2024 Clinisync Result Encounter Kunal Ortiz OFFICE MACHINE INSPECTOR Work Phone: [facility] External Department Unsolicited Start: 02-27-2024 End: 02-27-2024 Bamboo flowsheet Kunal Ortiz OFFICE MACHINE INSPECTOR Work Phone: [facility] Start: 02-27-2024 End: 02-27-2024 Bamboo flowsheet Kunal Ortiz OFFICE MACHINE INSPECTOR Work Phone: [facility] Start: 02-27-2024 End: 02-27-2024 Patient encounter procedure Kunal Ortiz OFFICE MACHINE INSPECTOR Work Phone: [facility] Comment on above: Screening for malign ant neoplasm of colon (Primary Dx); Prediabetes; Encounter for screening mammogram for malignant neoplasm of breast; Encounter for osteoporosis screening in asymptomatic postmenopausal patient; Need for immunization against influenza Start: 02-27-2024 End: 02-27-2024 ambulatory KUNAL SOLORZANOK Not Available Start: 02-24-2024 End: 02-24-2024 Orders Only Kunalbhanu Ortiz OFFICE MACHINE INSPECTOR Work Phone: [facility] Comment on above: Mixed hyperlipidemia (CMS/HCC) (Primary Dx) Start: 02-18-2024 End: 02-18-2024 Clinisync Result Encounter Kunal Ortiz OFFICE MACHINE INSPECTOR Work Phone: [facility] External Department Unsolicited Start: 02-18-2024 End: 02-18-2024 Clinisync Result Encounter Kunal Ortiz OFFICE MACHINE INSPECTOR Work Phone: [facility] External Department Unsolicited Start: 02-17-2024 End: 02-17-2024 Refill Kunal Ortiz OFFICE MACHINE INSPECTOR Work Phone: [facility] Comment on [...] right Start: 02-11-2024 End: 02-11-2024 Refill Kunal Ortiz OFFICE MACHINE INSPECTOR Work Phone: [facility] Comment on above: Hyperlipidemia, unsp ecified hyperlipidemia type (CMS/HCC); Hypothyroidism, unspecified type (CMS/HCC) Start: 01-22-2024 End: 01-22-2024 Clinisync Result Encounter Kunal Ortiz OFFICE MACHINE INSPECTOR Work Phone: [facility] External Department Unsolicited Start: 01-22-2024 End: 01-22-2024 Clinisync Result Encounter Kunal Ortiz OFFICE MACHINE INSPECTOR Work Phone: [facility] External Department Unsolicited Start: 12-19-2023 End: 12-19-2023 Bamboo flowsheet Kunal Ortiz OFFICE MACHINE INSPECTOR Work Phone: [facility] Start: 12-19-2023 End: 12-19-2023 Bamboo flowsheet Kunal Ortiz OFFICE MACHINE INSPECTOR Work Phone: [facility] Start: 12-19-2023 End: 12-19-2023 Office outpatient visit 15 minutes Kunal Ortiz OFFICE MACHINE INSPECTOR Work Phone: [facility] Comment on above: Prediabetes (Primary Dx); Hypertriglyceridemia (CMS/HCC); Hypothyroidism, unspecified type (CMS/HCC); Impacted cerumen of left ear Start: 12-04-2023 End: 12-04-2023 ambulatory [facility] Start: 05-24-2023 Chart abstracting Ame ROA Work Phone: [facility] Start: 05-24-2023 End: 05-24-2023 Postop follow up visit related to original px Ame Hong PA Work Phone: [facility] Comment on above: S/P carpal tunnel re lease (Primary Dx); Right hand pain; Arthritis of carpometacarpal (CMC) joint of right thumb Start: 07-03-2022 End: 07-04-2022 ambulatory SHAIKH Lorelei RASHIDRadhaDUSTIN Facility:[facility] Start: 03-29-2022 End: 03-30-[address] JOSE DAVID GODWIN Facility:[facility] Start: 02-06-2022 End: 02-07-[address] JOSE DAVID GODWIN Facility:[facility] Start: 11-26-2021 End: 11-26-2021 ambulatory Yuliet Perez Other [employer] Other Start: 11-26-2021 Office outpatient ne w 20 minutes Yuliet Perez [facility] Start: 11-26-2021 End: 11-26-2021 Departed Referred DO Jose David Godwin Work Phone: [facility] [place] Start: 09-13-2021 End: 09-13-2021 Patient encounter procedure DO Jose David Citlali Work Phone: [facility] [address] Procedures Date Procedure Procedure Detail Performing Clinician Start: 11-01-2024 NM UNA PERF SPECT RE ST STR Generic External Data Provider Start: 10-20-2024 ALL LIPID PROFILE (FASTING) Generic External Data Provider Start: 09-10-2024 Urine culture Kunal Ortiz OFFICE MACHINE INSPECTOR-C Work Phone: Start: 08-26-2024 ECG 12-LEAD Delmi read OFFICE MACHINE INSPECTOR Work Phone: Start: 08-26-2024 ALL CBC WITH AUTO DIFF Delmi Love OFFICE MACHINE INSPECTOR Work Phone: Start: 07-15-2024 End: 07-15-2024 Radex foot complete minimum 3 views Darien Blanca DPM Work Phone: Start: 06-05-2024 CCF CALCIUM Kunal F annatrick OFFICE MACHINE INSPECTOR Work Phone: Start: 05-25-2024 Computerized ophthal alma [...] Work Phone: Start: 05-01-2024 Colonoscopy Kunal price OFFICE MACHINE INSPECTOR-C Work Phone: Start: 03-19-2024 MLR HEMOGLOBIN A1C Marian bhanu Diana OFFICE MACHINE INSPECTOR Work Phone: Start: 02-18-2024 ALL LIPID PROFILE (FASTING) Kunal Diana OFFICE MACHINE INSPECTOR Work Phone: Start: 01-22-2024 TSH W/REFLEX T4 Britfrancy jonny Solorzanok OFFICE MACHINE INSPECTOR Work Phone: Start: 04-01-2023 Mammography Ame castillo [...] 05-04-2034 Screening for malignant neoplasm of colon [facility] Start: 03-18-2027 Screening for malignant neoplasm of colon [facility] Start: 11-09-2025 Screening for malignant neoplasm of lung Lung Cancer Screening Shared Decision Making [facility] Comment on above: Postponed from 1950 (Patient Refus ed) Start: 10-20-2025 End: 10-20-2025 Patient encounter procedure [facility] Start: 08-18-2025 Adult BMI Screening Adult BMI Screening [facility] Start: 08-18-2025 Tobacco Screening Tobacco Screening [facility] Start: 03-23-2025 End: 03-23-2025 Patient encounter procedure [facility] Start: 02-26-2025 Medicare Annual Wellness (AWV) Medicare Annual Wellness (AWV) [facility] Start: 02-16-2025 End: 02-16-2025 Patient encounter procedure 02/16/2025 1:10 PM EST Office Visit [facility] [address] [place] [address] Mike Gant MD [address] [place] [address] [facility] Start: 02-09-2025 End: 02-09-2025 Patient encounter procedure 02/09/2025 2:00 PM EDT Office Visit [facility] [address] [place] [address] Delmi Love NP [address] [place] [address] [facility] Start: 01-20-2025 End: 01-20-2025 Patient encounter procedure [facility] Start: 01-13-2025 End: 01-13-2025 Patient encounter procedure 01/13/2025 9:45 AM EDT Office Visit [facility] [address] [place] [phone] Jr. Trixie Gr, DO [address] [place] [address] [facility] Start: 12-25-2024 End: 12-25-2024 Patient encounter procedure 12/25/2024 9:45 AM EDT Office Visit [facility] [address] [place] [address] Ame Hong PA [address] [place] [address] Left hand pain (Primary Dx) [facility] Comment on above: Left hand pain (Primary Dx) Start: 12-14-2024 Influenza vaccination [facility] Start: 11-26-2024 End: 11-26-2024 Patient encounter procedure [facility] Start: 11-23-2024 End: 11-09-2025 Bacteria identified in Urine by Culture Urine culture (clean catch) Microbiology Routine Recurrent UTI (urinary tract infection) Expected: 11/23/2024 (Approximate), Expires: 11/09/2025 [facility] Comment on above: Expected: 11/23/2024 (Approximate), Expi res: 11/09/2025 Start: 11-23-2024 End: 11-09-2025 Urinalysis complete panel - Urine Urinalysis with reflex microscopic (clean catch) Lab Routine Recurrent UTI (urinary tract infection) Expected: 11/23/2024 (Approximate), Expires: 11/09/2025 [facility] Work Phone: Comment on above: Expected: 11/23/2024 (Approximate), Expi res: 11/09/2025 Start: 11-09-2024 End: 11-09-2024 Patient encounter procedure [facility] Comment on above: Numbness and tingling of both feet (Prim ramón Dx); Spondylosis of cervical spine; Tobacco dependence; Other fatigue Start: 11-04-2024 Urine culture [facility] Start: 11-04-2024 Bacteria identified in Urine by Culture Urine Culture [facility] Start: 10-14-2024 End: 10-14-2024 Patient encounter procedure 10/14/2024 10:30 AM EDT Office Visit [facility] [address] [place] [phone] Darien Blanca, ASAD [address] [place], [place] [phone] [facility] Start: 10-13-2024 End: 10-13-2024 Patient encounter procedure 10/13/2024 12:00 PM EDT Procedure Visit [facility] [address] [place] [address] Jamia Guevara MD [address] [facility] [address] [place] [address] [facility] Start: 09-29-2024 End: 09-29-2025 MR Cervical spine WO contrast MR cervical spine wo contrast Imaging Routine Spondylosis of cervical spine Expected: 09/29/2024 (Approximate), Expires: 09/29/2025 [facility] Comment on above: Expected: 09/29/2024 (Approximate), Expi res: 09/29/2025 Start: 09-29-2024 End: 09-29-2025 MR Lumbar spine WO contrast MR lumbar spine wo contrast Imaging Routine Acquired spondylolisthesis of lumbosacral region Expected: 09/29/2024, Expires: 09/29/2025 [facility] Work Phone: Comment on above: Expected: 09/29/2024, Expires: Start: 09-29-2024 End: 09-29-2025 XR Lumbar spine Views W flexion and W extension XR lumbar spine 4+ views w flexion extension Imaging Routine Acquired spondylolisthesis of lumbosacral region Expected: 09/29/2024, Expires: 09/29/2025 [facility] Comment on above: Expected: 09/29/2024, Expires: Start: 09-24-2024 End: 09-24-2024 Patient encounter procedure [facility] Comment on above: Tobacco dependence (Primary Dx); Other fatigue; Hypothyroidism, unspecified type Start: 09-24-2024 End: 09-24-2025 EMG AND NERVE CONDUCTION STUDY EMG AND NERVE CONDUCTION STUDY Neurology Routine Numbness and tingling of both feet Lumbar back pain Expected: 09/24/2024 (Approximate), Expires: 09/24/2025 [facility] Comment on above: Expected: 09/24/2024 (Approximate), Expi res: 09/24/2025 Start: 09-24-2024 End: 09-24-2025 XR Cervical spine 2 or 3 Views XR cervical spine 2 or 3 views Imaging Routine Neck pain Expected: 09/24/2024, Expires: 09/24/2025 [facility] Comment on above: Expected: 09/24/2024, Expires: Start: 09-24-2024 End: 09-24-2025 XR Lumbar spine 2 or 3 Views XR lumbar spine 2 or 3 views Imaging Routine Lumbar back pain Expected: 09/24/2024, Expires: 09/24/2025 [facility] Work Phone: Comment on above: Expected: 09/24/2024, Expires: Start: 09-10-2024 Urine culture [facility] Start: 09-10-2024 Bacteria identified in Urine by Culture Urine Culture [facility] Start: 08-25-2024 End: 08-25-2025 25-hydroxyvitamin D3 [Mass/volume] in Serum or Plasma Vitamin D 25 hydroxy Lab Routine Vitamin D deficiency Expected: 08/25/2024 (Approximate), Expires: 08/25/2025 [facility] Work Phone: Comment on above: Expected: 08/25/2024 (Approximate), Expi res: 08/25/2025 Start: 08-25-2024 End: 08-25-2024 Professional / ancillary services management 08/25/2024 11:30 AM EDT Ancillary Procedure [facility] [address] [place] [address] [facility] Start: 08-18-2024 End: 08-18-2024 Patient encounter procedure 08/18/2024 3:50 PM EDT Office Visit [facility] [address] [place] [phone] Mike Gant MD [address] [place] [address] [facility] Start: 08-18-2024 End: [...] both feet Expected: 08/12/2024 (Approximate), Expires: 08/12/2025 [facility] Comment on above: Expected: 08/12/2024 (Approximate), Expi res: 08/12/2025 Start: 08-12-2024 End: 08-12-2025 Cobalamin (Vitamin B12) [Mass/volume] in Serum or Plasma Vitamin B12 Lab Routine Other fatigue Numbness and tingling of both feet Expected: 08/12/2024 (Approximate), Expires: 08/12/2025 [facility] Comment on above: Expected: 08/12/2024 (Approximate), Expi res: 08/12/2025 Start: 08-12-2024 End: 08-12-2025 ECG 12 lead ECG 12 lead ECG Routine Tobacco dependence Hyperlipidemia, unspecified hyperlipidemia type (CMS/HCC) Other fatigue Family history of coronary artery disease Expected: 08/12/2024 (Approximate), Expires: 08/12/2025 [facility] Comment on above: Expected: 08/12/2024 (Approximate), Expi res: 08/12/2025 Start: 08-12-2024 End: 08-12-2025 Iron and Iron binding capacity panel - Serum or Plasma Iron level Lab Routine Other fatigue Expected: 08/12/2024 (Approximate), Expires: 08/12/2025 [facility] Comment on above: Expected: 08/12/2024 (Approximate), Expi res: 08/12/2025 Start: 08-12-2024 End: 08-12-2025 Thyrotropin [Units/volume] in Serum or Plasma TSH Lab Routine Hypothyroidism, unspecified type (CMS/HCC) Expected: 08/12/2024 (Approximate), Expires: 08/12/2025 [facility] Work Phone: Comment on above: Expected: 08/12/2024 (Approximate), Expi res: 08/12/2025 Start: 08-12-2024 End: 08-12-2025 Thyroxine (T4) free [Mass/volume] in Serum or Plasma T4, free Lab Routine Hypothyroidism, unspecified type (CMS/HCC) Expected: 08/12/2024 (Approximate), Expires: 08/12/2025 [facility] Comment on above: Expected: 08/12/2024 (Approximate), Expi res: 08/12/2025 Start: 08-12-2024 End: 08-12-2025 Triiodothyronine (T3) Free [Mass/volume] in Serum or Plasma T3, free Lab Routine Hypothyroidism, unspecified type (CMS/HCC) Expected: 08/12/2024 (Approximate), Expires: 08/12/2025 [facility] Comment on above: Expected: 08/12/2024 (Approximate), Expi res: 08/12/2025 Start: 08-12-2024 End: 08-12-2024 Patient encounter procedure [facility] Comment on above: Hypothyroidism, unspecified type (CMS/HC C) (Primary Dx); Acute otitis externa of left ear, unspecified type; Mixed hyperlipidemia (CMS/HCC); Tobacco dependence Start: 07-30-2024 End: 06-07-2025 25-hydroxyvitamin D3 [Mass/volume] in Serum or Plasma Vitamin D 25 hydroxy Lab Routine Vitamin D deficiency Expected: 07/30/2024 (Approximate), Expires: 06/07/2025 [facility] Work Phone: Comment on above: Expected: 07/30/2024 (Approximate), Expi res: 06/07/2025 Start: 07-20-2024 End: 07-20-2024 Professional / ancillary services management 07/20/2024 11:30 AM EDT Ancillary Procedure [facility] [address] [place] [phone] [facility] Start: 07-16-2024 End: 07-16-2024 Patient encounter procedure 07/16/2024 11:45 AM EDT Office Visit [facility] [address] [place] [address] Delmi Love, OFFICE MACHINE INSPECTOR [address] [place] [address] [facility] Start: 07-15-2024 End: 07-15-2024 Patient encounter procedure 07/15/2024 10:15 AM EDT Office Visit [facility] [address] [place] [phone] Darien Blanca, DPM [address] [place], [place] [phone] Arrived [facility] Comment on above: Arrived Start: 06-07-2024 End: 06-07-2025 CBC W Auto Differential panel - Blood CBC and differential Lab Routine Tobacco dependence Expected: 06/07/2024 (Approximate), Expires: 06/07/2025 [facility] Comment on above: Expected: 06/07/2024 (Approximate), Expi res: 06/07/2025 Start: 06-07-2024 End: 06-07-2025 Comprehensive metabolic 2000 panel - Serum or Plasma Comprehensive metabolic panel Lab Routine Prediabetes Mixed hyperlipidemia ([facility]/HCC) Expected: 06/07/2024 (Approximate), Expires: 06/07/2025 [facility] Comment on above: Expected: 06/07/2024 (Approximate), Expi res: 06/07/2025 Start: 06-07-2024 End: 06-07-2025 Microalbumin/Creatinine panel in random Urine Microalbumin / creatinine, urine ratio Lab Routine Prediabetes Expected: 06/07/2024 (Approximate), Expires: 06/07/2025 [facility] Work Phone: Comment on above: Expected: 06/07/2024 (Approximate), Expi res: 06/07/2025 Start: 06-07-2024 End: 06-07-2025 Urinalysis complete panel - Urine Urinalysis with reflex microscopic (clean catch) Lab Routine Prediabetes Expected: 06/07/2024 (Approximate), Expires: 06/07/2025 [facility] Comment on above: Expected: 06/07/2024 (Approximate), Expi res: 06/07/2025 Start: 05-28-2024 End: 05-28-2024 Patient encounter procedure [facility] Comment on above: Arrived Start: 05-25-2024 End: 05-25-2024 Patient encounter procedure [facility] Comment on above: Arrived Start: 05-01-2024 [facility] Start: 04-21-2024 End: 04-21-2025 25-hydroxyvitamin D3 [Mass/volume] in Serum or Plasma Vitamin D 25 hydroxy Lab Routine Age-related osteoporosis without current pathological fracture (CMS/HCC) Expected: 04/21/2024 (Approximate), Expires: 04/21/2025 [facility] Comment on above: Expected: 04/21/2024 (Approximate), Expi res: 04/21/2025 Start: 04-21-2024 End: 04-21-2025 Calcium [Mass/volume] in Serum or Plasma Calcium Lab Routine Age-related osteoporosis without current pathological fracture (CMS/HCC) Expected: 04/21/2024 (Approximate), Expires: 04/21/2025 [facility] Work Phone: Comment on above: Expected: 04/21/2024 (Approximate), Expi res: 04/21/2025 Start: 04-01-2024 Screening for malignant neoplasm of breast Mammogram [facility] Start: 03-23-2024 End: 03-23-2024 Patient encounter procedure 03/23/2024 2:05 PM EST Office Visit [facility] [address] [place] [address] Benjamin Tan MD [address] [place] [address] [facility] Start: 02-27-2024 End: 2025 DBT Breast - bilateral screening Bilateral screening mammogram with tomosynthesis Imaging Routine Encounter for screening mammogram for malignant neoplasm of breast Expected: 02/27/2024, Expires: 2025 [facility] Comment on above: Expected: 02/27/2024, Expires: Start: 02-27-2024 End: 02-26-2025 DXA Skeletal system Views for bone density DEXA bone density Imaging Routine Encounter for osteoporosis screening in asymptomatic postmenopausal patient Expected: 02/27/2024, Expires: 02/26/2025 [facility] Comment on above: Expected: 02/27/2024, Expires: Start: 02-27-2024 End: 02-26-2025 Hemoglobin A1c/Hemoglobin.total in Blood Hemoglobin A1c Lab Routine Prediabetes Expected: 02/27/2024 (Approximate), Expires: 02/26/2025 [facility] Comment on above: Expected: 02/27/2024 (Approximate), Expi res: 02/26/2025 Start: 02-27-2024 End: 02-26-2025 Noninvasive colorectal cancer DNA and occult blood screening [Presence] in Stool Cologuard colon cancer screening Lab Routine Screening for malignant neoplasm of colon Expected: 02/27/2024 (Approximate), Expires: 02/26/2025 [facility] Work Phone: Comment on above: Expected: 02/27/2024 (Approximate), Expi res: 02/26/2025 Start: 02-27-2024 End: 02-27-2024 Patient encounter procedure 02/27/2024 11:00 AM EST Office Visit [facility] [address] [place] [address] Kunal Ortiz NP [address] [place] [address] RASHID LAWRENCE Start: 02-20-2024 Medicare Annual Wellness (AWV) Medicare Annual Wellness (AWV) [facility] Start: 02-13-2024 End: 02-13-2024 Patient encounter procedure 02/13/2024 1:50 PM EDT Office Visit [facility] [address] [place] [id number] Ben Roe DPM [address] [facility] [address] [place] [address] [facility] Start: 01-10-2024 Screening for malignant neoplasm of colon Colorectal Cancer Screening [facility] Comment on above: Postponed from 1950 (Other Patient Reasons) Start: 01-02-2024 End: 12-18-2024 TSH W/REFLEX TO FT4 TSH W/REFLEX TO FT4 Lab Routine Hypothyroidism, unspecified type (CMS/HCC) Expected: 01/02/2024 (Approximate), Expires: 12/18/2024 [facility] Work Phone: Comment on above: Expected: 01/02/2024 (Approximate), Expi res: 12/18/2024 Start: 12-19-2023 End: 12-19-2023 Patient encounter procedure 12/19/2023 11:30 AM EDT Office Visit [facility] [address] [place] [address] Kunal Ortiz NP [address] [place] [address] Prediabetes (Primary Dx); Hypertriglyceridemia (CMS/HCC); Mixed hyperlipidemia (CMS/HCC) [facility] Comment on above: Prediabetes (Primary Dx); Hypertriglyceridemia (CMS/HCC); Mixed hyperlipidemia (CMS/HCC) Start: 12-15-2023 COVID-19 Vaccine ( season) COVID-19 Vaccine () [facility] Start: 12-15-2023 Influenza vaccination Influenza Vaccine (#1) [facility] Start: 10-11-2023 End: 10-11-2023 Patient encounter procedure 10/11/2023 10:30 AM EDT Office Visit [facility] [address] [place] [address] Ame Hong PA [address] [place] [address] [facility] Start: 05-24-2023 End: 05-24-2023 Patient encounter procedure 05/24/2023 10:30 AM EST Office Visit [facility] [address] [place] [address] Ame Hong PA [address] [place] [address] [facility] Start: 11-13-2022 Adult BMI Screening Adult BMI Screening [facility] Start: 03-25-2022 Screening for malignant neoplasm of colon [facility] Start: 2016 Fall Risk Screening Fall Risk Screening [facility] Start: 2001 Administration of varicella zoster vaccine Zoster (Shingles) Vaccine (1 of 2) [facility] Start: 1970 DTaP,Tdap and Td Vaccines (1 - Tdap) DTaP,Tdap and Td Vaccines (1 - Tdap) [facility] Start: 1969 Adult BMI Follow Up Plan Adult BMI Follow Up Plan [facility] Start: 1963 Depression Screening Depression Screening [facility] Start: 1963 Tobacco Screening Tobacco Screening [facility] Start: 1950 Medicare Annual Wellness (AWV) Medicare Annual Wellness (AWV) [facility] Start: 1950 Screening for malignant neoplasm of colon [facility] Start: 1950 Screening for malignant neoplasm of lung Lung Cancer Screening Shared Decision Making [facility] Start: 1951 Tobacco Counseling Tobacco Counseling [facility] Patient Education Colon polyps H emorrhoids ED Diverticulosis Know your Meds [facility] Work Phone: US.doppler Extremity arteries - bilateral for physiologic artery study at rest and with exercise VASC US PVR/SEGMENTAL PRESSURES LOWER Imaging Routine Peripheral vascular disease (CMS/HCC) Ordered: 07/15/2024 [facility] Work Phone: Comment on above: Ordered: 07/15/2024 XR Hand - right 3 Views XR hand 3+ views right Imaging Routine Right hand pain 05/24/2023 10:32 AM EST [facility] Work Phone: Immunizations Immunization Date Immunization Notes Care Provider [facility] 02-27-2024 influenza, seasonal, injectable, preservative free Kunal Ortiz OFFICE MACHINE INSPECTOR Work Phone: [facility] 02-27-2024 influenza virus vaccine, unspecified formulation [facility] 02-13-2023 Influenza, Seasonal, Quadrivalent, Adjuvanted Delmi Aichholz OFFICE MACHINE INSPECTOR Work Phone: [facility] 02-13-2023 influenza virus vaccine, unspecified formulation Kunal Ortiz OFFICE MACHINE INSPECTOR Work Phone: [facility] 02-07-2022 Influenza, Seasonal, Quadrivalent, Adjuvanted Delmi Aichholz OFFICE MACHINE INSPECTOR Work Phone: [facility] 04-11-2021 Influenza, Seasonal, Quadrivalent, Adjuvanted Delmi Aichholz OFFICE MACHINE INSPECTOR Work Phone: [facility] 01-13-2020 influenza, injectabl e, quadrivalent, preservative free Delmi Aichholz OFFICE MACHINE INSPECTOR Work Phone: [facility] 12-25-2019 influenza, injectabl e, quadrivalent, preservative free Delmi Aichholz OFFICE MACHINE INSPECTOR Work Phone: [facility] 01-21-2019 pneumococcal polysaccharide vaccine, 23 valent Delmi Aichholz OFFICE MACHINE INSPECTOR Work Phone: [facility] 01-21-2019 Seasonal, quadrivale nt, recombinant, injectable influenza vaccine, preservative free Delmi Aichholz OFFICE MACHINE INSPECTOR Work Phone: [facility] 01-28-2018 Seasonal trivalent influenza vaccine, adjuvanted, preservative free Delmi Aichholz OFFICE MACHINE INSPECTOR Work Phone: [facility] 03-14-2017 influenza, injectabl e, quadrivalent, preservative free Delmi Aichholz OFFICE MACHINE INSPECTOR Work Phone: [facility] 03-14-2017 pneumococcal conjuga te vaccine, 13 valent Delmi Aichholz OFFICE MACHINE INSPECTOR Work Phone: [facility] 01-23-2016 seasonal influenza, intradermal, preservative free Delmi Aichholz OFFICE MACHINE INSPECTOR Work Phone: [facility] Payers Date Payer Category Payer Self-pay [id number] 2021 Medicare ANTHEM MEDICARE ADVANTAGE ANTHEM MEDICARE ADVANTAGE [id number] 2021-Present [id number] [place] [address] [id number] 2021 Medicare (Managed Care) [facility] [id number] 2019 Medicare HMO ANTHEM MEDICARE [id number] 1959 Medicare [id number] 1950 Unknown [id number] 2.16.840.1.286526.3.579. 2.593 1950 Unknown [id number] 2.16.840.1.914677.3.579. 2.593 1950 Unknown [id number] 2.16.840.1.224773.3.579. 2.593 1951 Unknown [id number] 2.16.840.1.634545.3.579. 2.1286 1951 Unknown [id number] 2.16.840.1.827775.3.579. 2.1286 1951 Unknown [id number] 2.16.840.1.922354.3.579. 2.1259 1951 Unknown [id number] 2.16.840.1.286938.3.579. 2.1259 1951 Unknown [id number] 2.16.840.1.189686.3.579. 2.1259 1951 Unknown [id number] 2.16.840.1.312206.3.579. 2.1259 1951 Unknown [id number] 2.16.840.1.635468.3.579. 2.1259 1951 Unknown [id number] 2.16.840.1.925768.3.579. 2.1259 1951 Unknown [id number] 2.16.840.1.498530.3.579. 2.1259 1951 Unknown [id number] 2.16.840.1.230600.3.579. 2.1259 1951 Unknown [id number] 2.16.840.1.091102.3.579. 2.1258 1951 Unknown [id number] 2.16.840.1.174589.3.579. 2.1258 1951 Unknown [id number] 2.16.840.1.713796.3.579. 2.1258 1951 Unknown [id number] 2.16.840.1.710713.3.579. 2.1258 1951 Unknown [id number] 2.16.840.1.481854.3.579. 2.1258 1951 Unknown [id number] 2.16.840.1.482756.3.579. 2.1258 1951 Unknown [id number] 2.16.840.1.141805.3.579. 2.1258 1951 Unknown [id number] 2.16.840.1.761225.3.579. 2.1258 1951 Unknown [id number] 2.16.840.1.411283.3.579. 2.1258 1951 Unknown [id number] 2.16.840.1.263157.3.579. 2.1258 1951 Unknown [id number] 2.16.840.1.809332.3.579. 2.125 1951 Unknown [id number] 2.16.840.1.452144.3.579. 2.1259 Unknown [place] BC/BS 1 [id number] Unknown Other1 (STD) [id number] Unknown [id number] 2.16.840.1.824124.3.579. 2.531 Unknown [id number] 2.16.840.1.998776.3.579. 2.531 Unknown [id number] 2.16.840.1.645823.3.579. 2.531 Social History Date Type Detail Facility Tobacco smoking stat us NHIS Unknown if ever smoked [facility] Work Phone: Start: 1950 Sex Assigned At Female [facility] Start: 03-29-2023 End: 11-12-2023 Sex Assigned At [facility] Start: 07-28-1973 End: 11-08-2023 Tobacco smoking status NHIS Smokes tobacco daily [facility] Start: 07-28-1973 History of tobacco use Cigarette Smoker [facility] Start: 11-07-2022 End: 11-08-2023 Tobacco use and exposure Smokeless tobacco non-user [facility] Start: 05-03-2023 End: 12-25-2024 Alcohol intake Lifetime non-drinker (finding) [facility] [...] to any clubs or organizations such as taoism groups, unions, fraternal or athletic groups, or [...] 05-01-2024 Tobacco smoking status NHIS Smoker (finding) [facility] Start: 05-01-2024 Sex Patient sex unknown (finding) [facility] How often do you nee d to have someone help you when you read instructions, pamphlets, or other written material from your doctor or pharmacy [SILS] Rarely [facility] Start: 08-11-2024 End: 08-18-2024 Alcoholic beverage intake Current drinker of alcohol (finding) [facility] Start: 05-16-2020 Alcohol Comment occassional [facility] Start: 11-18-2014 End: 09-11-2024 Sex Female (finding) [facility] Start: 06-11-2020 Gender identity Identifies as female gender (finding) [facility] Goals Date Patient Goal Desired Activity /State Clinical Notes 11-26-2021 to 12-25-2024 Ame Hong, JANINA - 12/25/2024 9:45 AM Saurabh Lvoe NP - 11/09/2024 6:41 PM Saurabh Love, JADE - 11/09/2024 6:39 PM Saurabh Love NP - 11/09/2024 6:37 PM EDTPatient Instructions Note Date & Type Note Facility 12-25-2024 History of Present illness Narrative Images from the original note were not included. Orthopedic Office note: NAME: Bertha Galarza : 1950 EST PT WITH FLARE UP LT CTS AND LT MF LOCKING ~6WKS EMG B/L UE 09/25/22 NICOLE NO CORTISONE INJ NO MDP/PREDNISONE NO XRAY NO SPLINTS NO PAIN MANAGEMENT NOTES INCREASE LOCKING- DIFFCULTY PEELING POTATOES - PT HAS TO UNLOCK WITH OPPOSITE HAND- +SWELLING- +IBUPORFEN- PT STATES ENTIRE HAND CAN GO NUMB HX RT CTR 04/05/[address] GR Hand/Wrist Musculoskeletal Exam Inspection Left Erythema: none Ecchymosis: none Edema: none Deformity: mild Inspection additional comments: MILD THENAR ATROPHY Palpation Left Left hand palpation is normal. Triggering: middle Middle tenderness to palpation: A1 bharathi Wrist tenderness to palpation: carpal canal Palpation additional comments: DENIES PAIN TO PALPATION OF HAND/ WRIST JOINT Range of Motion Left Hand Left hand range of motion is normal. Range of motion additional comments: ABLE TO MAKE FULL FIST Strength Left Hand Left hand strength is normal. 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 Procedures Results ICD-10-CM 1. Left hand pain M79.642 methylPREDNISolone (Medrol Dospak) 4 MG tablets 2. Trigger middle finger of left hand M65.332 methylPREDNISolone (Medrol Dospak) 4 MG tablets 3. Carpal tunnel syndrome of left wrist G56.02 methylPREDNISolone (Medrol Dospak) 4 MG tablets F/U Dr. Gr to discuss need for possible: (L) carpal tunnel release and release A 1 bharathi middle finger trigger finger. Surgical and non surgical tx options discussed with conservative measures reviewed. Recommend ICE/ ELEVATION, continued activity modification in interim. Pt would consider surgical intervention to possibly improve symptoms. Assessment & Plan Left hand pain Tender and palpable trigger finger in the middle finger at the A1 bharathi. Symptoms of carpal tunnel syndrome with some thenar atrophy showing chronic changes. Both surgical and nonsurgical treatment options were discussed. Given the trigger finger of the middle finger and carpal tunnel syndrome, surgical intervention is requested for definitive treatment. Postoperative commitments and expectations were reviewed. Treatment plan: Surgical intervention is planned for definitive treatment of the trigger finger and carpal tunnel syndrome. Postoperative commitments and expectations were reviewed thoroughly. Clinical decision making: Pending follow-up with attending to discuss surgical intervention. Carpal tunnel syndrome Intermittent symptoms since carpal tunnel release on the right hand. Unclear why surgery was not pursued on the left hand. Mild thenar atrophy noted. Treatment plan: Trial of Medrol Dosepak for inflammation pending follow-up with attending to discuss surgical intervention. Right thumb triggering Mild triggering of the right thumb, currently nonpainful and does not interfere with normal activities. Treatment plan: No immediate intervention required as the thumb is nonpainful and does not interfere with normal activities. PROCEDURE Procedure Performed Carpal tunnel release on the right hand Questions answered in laymen terms at the bedside. The diagnosis, home exercise plan and any ongoing restrictions/ recommendations reviewed. If unable to be reached in office, I recommend evaluation at nearest Emergency Room if any symptoms worsened or new symptoms develop for requiring urgent evaluation. Visit was preformed using [employer]-boat pilot speech recognition. documented in this encounter [facility] 11-13-2024 Note SUBJECTIVE Reason for Visit: Bertha Galarza is a 74 y.o. year old female patient being seen for follow up visit. HPI: Betrha Galarza is a 74 y.o. year old [...] limitations from per (more content not included)... [facility] 11-09-2024 History of Present illness Narrative [...] on the importance of smoking cessation. Smoke: 4hhwF24 years, +family hx of lung cancer Declines [...] History: Diagnosis Date Actinic keratosis Cancer (HCC) 578331 Cataract CTS (carpal tunnel syndrome) 09/2022 Disease of thyroid gland 1986 Dry eyes Family history of thyroid problem High cholesterol Hx of breast cancer 2005 Personal history of other medical treatment thyroid Tear of meniscus of knee [id number] Trigger finger [id number] Visual impairment 02/2021 Past Surgical History: Procedure [...] of the risks of continued smoking: stroke, OK, all forms of cancer, lung disease, and [...] on the importance of smoking cessation. Smoke: [id number] years, +family hx of lung cancer Declines wanting this completed Associated Problem(s): Cigarette nicotine dependence without complication The patient has been advised of the risks of continued smoking: stroke, OK, all forms of cancer, lung disease, and [...] MRI was denied documented in this encounter [facility] 11-09-2024 Telephone encounter Note Please call [facility], to see if they have report from her urine culture from last week Also I forgot to ask pt, for further evaluation of fatigue, does she want to do a sleep study for evaluation for sleep apnea?? LA [facility] 11-09-2024 Miscellaneous Notes Please call [facility], to see if they have report from her urine culture from last week Also I forgot to ask pt, for further evaluation of fatigue, does she want to do a sleep study for evaluation for sleep apnea?? LA documented in this encounter [facility] 11-09-2024 Instructions Delmi Love NP - 11/09/2024 3:00 PM EDT Recheck urine sample in 2 weeks, get vit d level at that time as well documented in this encounter [facility] 10-20-2024 Telephone encounter Note Please let pt know that her insurance denied her MRI lumbar spine, she will need to do PT first, does she want to go that route? LA [facility] 10-20-2024 Miscellaneous Notes Please let pt know that her insurance denied her MRI lumbar spine, she will need to do PT first, does she want to go that route? LA documented in this encounter [facility] 10-19-2024 Note SUBJECTIVE Reason [...] smoker, started wh (more content not included)... [facility] 10-14-2024 History of Present illness Narrative [...] had an appt. Yesterday with Neurology at [facility] in [place] (dr. Guevara)SS: 10). HPI Established patient returns to clinic for follow up evaluation of neuropathy. She was unable to afford met next. She has been taking alpha lipoic acid and ulcu-oly-owztjzu vitamin-B complex with some mild improvement. She [...] History: Diagnosis Date Actinic keratosis Cancer (HCC) 924259 Cataract CTS (carpal tunnel syndrome) 09/2022 Disease of thyroid gland 1986 Dry eyes Family history of thyroid problem High cholesterol Hx of breast cancer 2006 Personal history of other medical treatment thyroid Tear of meniscus of knee [id number] Trigger finger [id number] Visual impairment 02/2021 Medications Current Outpatient Medications: [...] Today I spent over 30 minutes in rnmo-bk-piku time discussing with the patient on eating [...] corrected. Thank you for your understanding. Darien Blanac DPM documented in this encounter [facility] 10-13-2024 History of Present illness Narrative [facility] Patient: Bertha Galarza [address], [address] , Sex: 1950, Female [place], [place] [address] Height: 165 cm Ref Phys: Kate fax Electroneuromyogram (ENMG) Test Date: 2024-10-13 Patient [...] Doub=doublet; Fasc=fasciculation; FFE=full for effort; Fib=fibrillation; Myokym=myokymia; [place]=myotonic potential; N,0=normal; NR=no response; Polyph=polyphasia; Pos=positive [sharp] wave; RFU=rapidly firing units; Serr=serrated potential (2<phases<5); W&W=waxing and waning pattern INTERPRETATION: This study reveals ENMG evidence of a chronic, neuropathic, axonal, sensory > motor process affecting all lower extremity nerves tested. Needle examination demonstrates a ocqahs-yr-mbpqiopb gradient that is most suggestive of peripheral [...] plexopathy or radiculopathy. Jamia Guevara M.D. Diplomate, [place] [employer] and Neu[employer] (neurology, epilepsy, sleep medicine) Diplomate, [place] Board of Clinical Neurophysiology Diplomate, [place] [employer] of Preventive Medicine (clinical informatics) . documented in this encounter [facility] 09-25-2024 Telephone encounter Note Patient scheduled BLE on 10/13/24--no deductible--35.00 co-pay applied--patient is aware. [facility] 09-25-2024 Miscellaneous Notes Patient scheduled BLE on 10/13/24--no deductible--35.00 co-pay applied--patient is aware. documented in this encounter [facility] 09-24-2024 History of Present [...] cholecalciferol (VITAMIN D-3) 125 mcg, Oral, Daily W-Scwuicppajze-Kcenk-B12-B6 (Metanx) 3-90.314-2-35 MG capsule 3 mg, Oral, [...] History: Diagnosis Date Actinic keratosis Cancer (HCC) 552265 Cataract Dry eyes Family history of thyroid [...] of the risks of continued smoking: stroke, OK, all forms of cancer, lung disease, and [...] of the risks of continued smoking: stroke, OK, all forms of cancer, lung disease, and . Options for quitting smoking include: cold turkey, hypnosis, acupuncture, nicotine replacement meds (gum, lozenges, and patches), Buproprion, and Varenicline. At this time pt is encouraged to evaluate their goals for wanting to quit smoking, and reach out to provider when ready to start this process documented in this encounter [facility] 09-24-2024 Instructions Delmi Love NP - 09/24/2024 3:20 PM EDT Xray both neck and low back EMG: both legs, [place] [facility] Cardiology documented in this encounter [facility] 09-10-2024 Evaluation note Diagnosis Onset Date Resolution Acute cystitis with hematuria noneactive September 10, 2024 2 :08pm Dysuria noneactive November 04 6:24pm [facility] Work Phone: 1(640) 199-943305-29-2025 Evaluation note* Diagnosis Onset Date Resolution Status Admit Date Acute cystitis with hematuria noneac tive September 10, 2024 2:08pm UTI (urinary tract infection) acute November 04, 2024 6:24pm Dysuria noneactive November 04 6:24pm [facility] Work Phone: 1(886) 708-691005-06-2025 History of Present illness Narrative* Mike Gant MD - 08/18/2024 3:50 PM EDT Images from the original note were not included. [facility] [address] [facility] [address] Subjective: Patient ID: Bertha Galarza is a 74 y.o. female. Chief Complaint Chief Complaint Patient presents with New Patient *3:52 pt called, they were at wrong building on [address], they are making their way to the office now, should be within the 15 minute angela period. Peripheral vascular disease F17.200 (ICD-10-CM) - Smoker History of Present Illness: Thank you for referring patient Bertha Galarza and for your trust in our practice. Bertha Galarza is a 74 y.o. pleasant female with history of DL, current smoker who presents today for consultation at the [place] [facility] [place] due to bilateral feet numbness. 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 Dental disease full dentures Disease of thyroid gland Hyperlipidemia Hypothyroidism Past Surgical History: Procedure Laterality Date BIOPSY LARYNX Bilateral 05/30/2020 Performed by Leobardo Chaudhari MD PhD at [facility] BREAST LUMPECTOMY Left CARPAL TUNNEL RELEASE CATARACT EXTRACTION CHOLECYSTECTOMY INTRAOCULAR LENS INSERTION KNEE ARTHROSCOPY Left 2006 MICROLARYNGOSCOPY DIRECT FROZEN SECION Bilateral 05/30/2020 Performed by Leobardo Chaudhari MD PhD at [facility] OVARIAN CYST REMOVAL TONSILLECTOMY TRIGGER FINGER RELEASE [...] Resource Strain: Low Risk (11/12/2023) Received from [facility] Overall Financial Resource Strain (CARDIA) Difficulty of Paying Living Expenses: Not hard at all Food Insecurity: No Food Insecurity (11/12/2023) Received from [facility] Hunger Vital Sign Worried About Running Out of Food in the Last Year: Never true Ran Out of Food in the Last Year: Never true Transportation Needs: No Transportation Needs (11/12/2023) Received from [facility] PRAPARE - Transportation Lack of Transportation (Medical): No Lack of Transportation (Non-Medical): No Physical Activity: Inactive (11/12/2023) Received from [facility] Exercise Vital Sign Days of Exercise per Week: 0 days Minutes of Exercise per Session: 0 min Stress: No Stress Concern Present (11/12/2023) Received from [facility] [place] [facility] [employer] - Occupational Stress Questionnaire Feeling of Stress : Not at all Social Connections: Unknown (11/12/2023) Received from [facility] Social Connection and Isolation Panel [NHANES] Frequency of Communication with Friends and Family: Once a week Frequency of Social Gatherings with Friends and Family: Once a week Attends Islam Services: Patient declined Active Member of Clubs or Organizations: No Attends Club or Organization Meetings: Never Marital Status: Interpersonal Safety: Not on file Housing Instability: Unknown (11/12/2023) Received from [facility] Housing Stability Vital Sign [...] for your understanding. Mike Gant MD, AKSHAT, [facility] [place], FACC, RPVI Interventional Cardiology and Endovascular Interventions [facility] [place] [facility] documented in this encounterWVUMedicine [facility]05-05-2025 Miscellaneous Notes* Telephone Encounter - Shelli Francis CMA - 08/17/2024 12:43 PM EDT Called patient to remind them to bring their most current copy of their medication list with them to their appt. Patient verbalizes understanding. documented in this encounterWVUMedicine [facility]05-05-2025 Telephone encounter Note* Telephone Encounter - Shelli Francis CMA - 08/17/2024 12:43 PM EDT Called patient to remind them to bring their most current copy of their medication list with them to their appt. Patient verbalizes understanding. [facility]04-30-2025 History of Present illness Narrative* Delmi [...] concentrate 2 g, Oral, 2 times daily P-Uguvvfmntpri-Krdkp-B12-B6 (Metanx) 3-90.314-2-35 MG capsule 3 mg, Oral, [...] Medical History: Diagnosis Date Actinic keratosis Cancer ([facility]) 754221 Cataract Dry eyes Family history of thyroid problem High cholesterol ([facility]) Hx of breast cancer 2006 Personal [...] of the risks of continued smoking: stroke, OK, all forms of cancer, lung disease, and [...] of the risks of continued smoking: stroke, OK, all forms of cancer, lung disease, and [...] of fatigue, will check documented in this [facility]04-30-2025 Instructions* Patient Instructions* Delmi Love NP - 08/12/2024 1:40 PM EDT Check labs Check EKG, may need a stress test documented in this [facility]04-08-2025 Telephone encounter Note* Telephone Encounter - Darien Blanca DPM - 07/21/2024 11:33 AM EDT Reviewed noninvasive arterial studies. There seems to be some very mild disease on the right lower extremity. Based on her symptomatology I recommend following up with vascular to discuss options. Thank you. [facility] HospitalFsyhzstgqx43-75-5699 Miscellaneous Notes* Telephone Encounter - Darien Blanca DPM - 07/21/2024 11:33 AM EDT Reviewed noninvasive arterial studies. There seems to be some very mild disease on the right lower extremity. Based on her symptomatology I recommend following up with vascular to discuss options. Thank you. documented in this [place] [address]-04-2025 Telephone encounter Note* Telephone Encounter - Darien Blanca DPM - 07/17/2024 9:40 AM EDT I would recommend that she purchase an yzjz-jmh-cwofafq vitamin-B complex and I will send a prescription for alpha lipoic acid to her pharmacy. Thank you Victor Hugo. [facility] Ucdgomgqmq41-71-6387 Miscellaneous Notes* Telephone Encounter - Darien Blanca DPM - 07/17/2024 9:40 AM EDT I would recommend that she purchase an eqsn-say-aeruyqt vitamin-B complex and I will send a prescription for alpha lipoic acid to her pharmacy. Thank you Victor Hugo. * Telephone Encounter - Victor Hugo Martinez - 07/16/2024 8:38 AM EDT Patient called stating that the Rx is too costly and that she would like you to send in the other medications you mentioned at her appointment. documented in this encounterTexas County Memorial HospitalOjxgwgmzqr11-83-1322 History of Present illness Narrative* Delmi Love [...] concentrate 2 g, Oral, 2 times daily E-Xfjxlunztfnv-Wwknw-B12-B6 (Metanx) 3-90.314-2-35 MG capsule 3 mg, Oral, [...] Medical History: Diagnosis Date Actinic keratosis Cancer ([facility]) 461669 Cataract Dry eyes Family history of thyroid problem High cholesterol ([facility]) Hx of breast cancer 2006 Personal [...] of the risks of continued smoking: stroke, OK, all forms of cancer, lung disease, and [...] of the risks of continued smoking: stroke, OK, all forms of cancer, lung disease, and . Options for quitting smoking include: cold turkey, hypnosis, acupuncture, nicotine replacement meds(gum, lozenges, and patches), Buproprion, and Varenicline. At this time pt is encouraged to evaluate their goals for wanting to quit smoking, and reach out toprovider when ready to start this process documented in this encounterTexas County Memorial HospitalGgnbhuikys72-19-9350 Instructions* Patient Instructions* Delmi Love NP - 07/16/2024 11:45 AM EDT Ear drops to left ear documented in this encounterTexas County Memorial HospitalXcsuzojluu83-56-9422 Telephone encounter Note* Telephone Encounter - Victor Hugo Martinez - 07/16/2024 8:38 AM EDT Patient called stating that the Rx is too costly and that she would like you to send in the other medications you mentioned at her appointment. [facility] HospitalFlrcygmhzm25-28-5384 History of Present illness Narrative* Darien Blanca, ASAD - 07/15/2024 10:15 AM EDT Images from the original note were not included. Subjective Patient ID: Bertha Galarza is a 74 y.o. 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 Pt states she has trouble walking. RGT pain, 4th digit left foot corn. Pt also relates callus on lateral dorsal foot. And relates pain, numbness with toes, also relates swelling. No recent xrays. Did purchase insoles from the [employer] but states they hurt her feet. SS: [...] Medical History: Diagnosis Date Actinic keratosis Cancer ([facility]) 536525 Cataract Dry eyes Family history of thyroid problem High cholesterol ([facility]) Hx of breast cancer 2006 Personal history of other medical treatment thyroid Medications Current Outpatient Medications: aspirin 81 MG EC tablet, Take 81 mg by mouth Daily, Disp: , Rfl: fish oil concentrate (Elgin-3) 1000 MG capsule, Take 2 capsules (2 [...] in the morning.,Disp: 16 g, Rfl: 3 P-Qxizhfbegksu-Wdduw-B12-B6 (Metanx) 3-90.314-2-35 MG capsule, Take 3 mg [...] angle. Assessment/Plan ICD-10-CM 1. Neuropathy, idiopathic G60.9 H-Ffslrinhuiea-Jsplz-B12-B6 (Metanx) 3-90.314-2-35 MG capsule 2. Neuritis M79.2 E-Zgywjcojtlqf-Zkmod-B12-B6 (Metanx) 3-90.314-2-35 MG capsule 3. Pain in [...] the distal digits. Prescription was sent to [facility] and she was given a sample pack today to start. Additionally I recommend noninvasive arterial studies giving her smoking history and the subjective concerns that she is describing. This wasordered and sent to [facility].I will review these results and if appropriate refer her to vascular. I would like to see her back in 3 months to follow up on the Metanx therapy. If this is cost prohibitivefor her I have asked her to call our office and we will have her take a vitamin-B complex zsrq-gql-vltszcv and I will send in a prescription [...] understanding. Darien Blanca DPM documented in this encounterTexas County Memorial HospitalTgmyagnbdz63-68-4071 NoteCardiology Clinic Note HPI: Bertha Galarza is [...] concerns. Julio Cesar Borrego MD Interventional Cardiology [facility]02-13-2025 History of Present illness Narrative* Kunal Ortiz, JADE - 05/28/2024 10:37 AM EST Associated Problem(s): Hypertriglyceridemia (CMS/HCC) Most recent Lipid Panel Triglycerides were still elevated at 313 but a decrease from previous of 430. Pt discussed initiating Fenofibrate with Car Installations Supervisor- he recommended and initiated Aspirin 81mg atthis [...] of 430. Pt discussed initiating Fenofibrate with Car Installations Supervisor- he recommended and initiated Aspirin 81mg atthis [...] recheck in 3 months. documented in this encounterTexas County Memorial HospitalQtlysawmym40-69-7502 NoteRight Eye Quality was good. Scan locations included subfoveal. Progression has been stable. Findings include normal observations. Left Eye Quality was good. Scan locations included subfoveal. Progression has been stable. Findings include abnormal foveal contour. Notes Good scan with normal appearance right eye (OD)[facility] HospitalKyknwathpw09-99-4257 History of Present illness Narrative* Dandy Correa, - 05/25/2024 1:15 PM EST Assessment/Plan Epiretinal [...] lid scrubs were recommended. documented in this encounterTexas County Memorial HospitalNmswaccyub03-49-5248 [place] [address] Colonoscopy Procedure Report Signed Patient: Bertha Galarza MR#: [id number] : 1950 Acct:[id number] Age/Sex: 74 / F Adm Date: 5 Loc: Room: Type: [facility] Attending Dr: Taiwo Rosa MD Copies to: Kunal Ortiz, OFFICE MACHINE INSPECTOR-C Taiwo Rosa MD~ Colonoscopy Date/Provider 05/01/2024 Taiwo Rosa [...] was slowly withdrawnwith the findings as below. Lilly bowel prep score was good. Findings: Patient [...] should be done at a tertiary care [facility] she is not appropriate for outpatient [...] Rosa MD 05/01/24 1022 Signed By: 05/01/[address] [place], [place] 2250801-17-2025 [place] [address] Gastroenterology H&P Signed Patient: Bertha Galarza MR#: [id number] : 1950 Acct:[id number] Age/Sex: 74 / F Adm Date: 5 Loc: Room: Type: [facility] Attending Dr: Taiwo Rosa MD Copies [...] MD 05/01/24 1021 Signed By: 05/01/24 1022 [facility]12-30-2024 History of Present illness Narrative * Delmi Love NP - 04/13/2024 12:05 PM ESTAssociated Problem(s): Tobacco dependence The patient has been advised of the risks of continued smoking: stroke, OK, all forms of cancer, lung disease, and [...] History: Diagnosis Date Actinic keratosis Cancer (CMS/HCC) 187443 Cataract Dry eyes Family history of thyroid [...] of the risks of continued smoking: stroke, OK, all forms of cancer, lung disease, and [...] (Vibra-Tabs) 100 MG tablet documented in this [facility]12-30-2024 Instructions* Patient Instructions* Delmi Love NP - 04/13/2024 11:30 AM EST Fluids, rest, atb, steroids, and inhaler If not better contact office documented in this [facility]12-09-2024 History of Present illness Narrative* Benjamin Tan [...] Hands Examined Digits,nails: Examined Patient wearing nail [place], Denies dark streaks under finger nails Lymphatics: [...] 1 year skin exam documented in this encounterTexas County Memorial HospitalSlskkontld75-60-9735 History of Present illness Narrative* Kunal Ortiz NP - 02/27/2024 11:00 AM EST Images from [...] mg by mouth Daily fish oil concentrate (Elgin-3) 1000 MG capsule Take 2 capsules (2 [...] friends, or caretakers Three Word Registration: Daughter, HeAston montgomery Clock Drawing: Normal Clock - 2 Three Word Recall: 2/3 words correct - 2 Total Score (0-5 Points): 4 Pain Assessment Pain Score: 0 - No pain Advance Care Planning Do you have a living will?: No Do you have a medical power of contract attorney?: No Objective : BP 128/64 Pulse [...] on February 27, 2024 documented in this encounterTexas County Memorial HospitalHwbpspkfgv96-84-7352 History of Present illness Narrative* Ben Roe, DPM - 02/13/2024 1:50 PM EDT Patient: Bertha [...] Medical History: Diagnosis Date Actinic keratosis Cancer ([facility]) 553557 Cataract Dry eyes Family history of thyroid problem High cholesterol ([facility]) Hx of breast cancer 2006 Personal [...] min Stress: No Stress Concern Present (11/12/2023) [place] [employer] - Occupational Stress Questionnaire Feeling of Stress : Not at all Social Connections: Unknown (11/12/2023) Social Connection and Isolation Panel [NHANES] Frequency of Communication with Friends and Family: Once a week Frequency of Social Gatherings with Friends and Family: Once a week Attends Islam Services: Patient declined Active Member of Clubs [...] pathological diagnosis of specimen. Patient may take nthq-fed-jffnvfx NSAID p.r.n. for pain Application of salinocaine acid medication to lesion/lesions located at right foot Informed pt of risks and benefits of procedure including high reoccurence rate, infection, pain andconsent given. Application of DSD post procedure. Patient to continue with oral anti - inflammatories as needed for pain and recommended OTC medications such as tylenol or Ibuprofen Discussed accommodative custom inserts and ilu-yu-bohmsp cost has not covered by insurance patient may consider in the future but did recommend xjij-yen-jdklcaj inserts at this time Ben Roe DPM documented in this encounterTexas County Memorial HospitalJnxjvrwkpb13-99-8460 History of Present illness Narrative* Kunal Ortiz NP - 12/19/2023 11:57 AM EDTAssociated Problem(s): Prediabetes Dietary tips and recommendations given. Continue to implement lifestyle and dietary modifications. Recheck A1C in February. * Kunal Ortiz NP - 12/19/2023 11:52 AM EDTAssociated Problem(s): Hypertriglyceridemia (CMS/HCC) Most recent Lipid Panel Triglycerides were still elevated at 430 Pt discussed initiating Fenofibrate with Car Installations Supervisor- he recommended and initiated Aspirin 81mg atthis [...] HIGH >190 mg/dl VERY HIGH Resulting Agency [facility] Prediabtetic: Component Ref Range & Units 4 wk ago GLYCOHEMOGLOBIN A1C 4.5 - 6.2 % 5.7 Comment: ADA RECOMMENDED LIMIT 4.0 - 6.0 ADA THERAPEUTIC TARGET < 7.0 ACTION SUGGESTED > 7.0 ESTIMATED AVERAGE GLUCOSE mg/dL 117 Resulting Agency [facility] Hypothyroidism: TSH low- decreased levothyroxine to 75mcg Component Ref Range & Units 4 wk ago TSH 0.358 - 3.740 uIU/mL 0.209 Low Resulting Agency [facility] Review of Systems Constitutional: Negative for activity [...] at 430 Pt discussed initiating Fenofibrate with Car Installations Supervisor- he recommended and initiated Aspirin 81mg atthis [...] scan with next mammogram. documented in this encounterTexas County Memorial HospitalHebhzvtgaz98-94-5108 Instructions* Patient Instructions* Kunal Ortiz NP - [...] of vigorous aerobic activity. documented in this encounterTexas County Memorial HospitalOlhnjjcndt76-98-7367 NoteCardiology Clinic Note Chief Complaint: Pt is [...] concerns. Julio Cesar Borrego MD Interventional Cardiology [facility]02-09-2024 History of Present illness Narrative* JANINA [...] is normal. Strength additional comments: 5/5 EQUAL GLASS UNLOADING EQUIPMENT TENDER STRENGTH Neurovascular Right Right neurovascular exam is [...] urgent evaluation. JANINA Jackson documented in this encounterTexas County Memorial HospitalAofvtnxhiy18-90-4403 Evaluation note* Encounter Date Diagnosis Assessment Notes [...] understanding and is agreeable to treatment plan [employer] Other Evaluation noteNo assessment information available [facility] Work Phone: Evaluation note* Diagnosis S/P carpal [...] ischemic heart disease documented [facility] this encounter [facility]* Diagnosis Lower extremity edema- Primary Edema Dyslipidemia Other and unspecified hyperlipidemia [facility] Diagnosis Hypertriglyceridemia (CMS/HCC)- Primary [...] D deficiency- Primary documented in this encounter [facility]* Diagnosis Hypertriglyceridemia (CMS/HCC)- Primary [...] infection)- Primary documented in this encounter [facility] [...] complication Lung cancer screening declined by patient Left hand pain- Primary Pain in soft tissues of limb Trigger middle finger of left hand Carpal tunnel syndrome of left wrist documented in this encounter [facility] HealthcareHistory and physical note Author Taiwo Rosa [facility] Note Date/Time May 01, 2024 1 0:22am [facility] [address] [place] [address] Gastroenterology H&P Signed Patient: Bertha Galarza MR#: [id number] : 1950 Acct:[id number] Age/Sex: 74 / F Adm Date: 5 Loc: Room: Type: [facility] Attending Dr: Taiwo Rosa MD Copies [...] signed by Taiwo Rosa MD> 05/01/24 1022 [facility] Work Phone: History general Narrative - Reported* Type Description Date Medical History Hypothyroid Medical History Hypercholesterolemia Medical History Breast cancer Surgical History colonoscopy Surgical History cholecystectomy Surgical History knee arthroscopy Surgical History tonsillectomy and adenoidectomy Surgical History wisdom teeth Surgical History laparoscopy Surgical History tubal ligation Surgical History biopsy Surgical History left knee replacement 10/04 Hospitalization History see above [employer] Other InstructionsNot on filedocumented in this encounter [facility] SystemInstructionsNot on filedocumented in this encounter [facility] SystemInstructions* Attachments The following attachments cannot be sent through Care Everywhere. * Quitting smoking for adults (Romansh) documented in this encounterProAultman Hospital SystemReason for referral (narrative)No reason for referral information availableSelect [facility] Work Phone: Reason for visit Narrative* Other Medical (Routine) - Closed Specialty Diagnoses / Procedures Referred By Contac t Referred To Contact Neurology Diagnoses Numbness and tingling of both feet Lumbar back pain Procedures EMG AND NERVE CONDUCTION STUDY Delmi Love, JADE [address] [place] [address] Phone: tel: fax: Jamia Guevara MD [address] [facility] [address] [address] Phone: tel: fax: Referral ID Status Reason Start Date Expiration Date Visits Re quested Visits Authorized [id number] Closed 09/24/2024 03/23/2025 1 1 [facility] [...] Advance Directives No September 08 2 2:46pm Advance Directive Response Recorded Date/ Time [...] David Godwin , Primary Care Provider, Attending Stanislav spangler Active Trixie Gr Jr, Other Provider Active Team Status: Active Member Role Status Dates Jose David Godwin , Primary Care Provider Active Team Status: Inactive Member Role Status Dates Jose David Godwin , Primary Care Provider Active Yuliet Perez APRN Attending Provider Active 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 Start Date End Date Jose David Godwin MD [address] [place] [address] PCP - General Family Medicine 10/11/22 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 Start Date End Date Jose David Godwin MD [address] [place] [address] PCP - General Family Medicine 10/11/22 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 Start Date End Date Moustapha De Leon MD [address] [facility] [place] [address] PCP - General Family Medicine 11/08/23 Stephanie Peters OD [facility] [place] [address] Referring Physician Optometry 11/08/23 Kunal Ortiz NP [address] [facility] [address] Nurse Practitioner Family Medicine 11/13/23 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 Start Date End Date Moustapha De Leon MD [address] [place] [address] PCP - General Family Medicine 11/08/23 Stephanie Peters, OD [address] [place] [address] Referring Physician Optometry 11/08/23 Kunal Ortiz, JADE [address] [place] [address] Nurse Practitioner Family Medicine 11/13/23 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 Start Date End Date Moustapha De Leon MD [address] [place] [address] PCP - General Family Medicine 11/08/23 Stephanie Peters, OD [address] [place] [address] Referring Physician Optometry 11/08/23 Kunal Ortiz NP [address] [place] [address] Nurse Practitioner Family Medicine 11/13/23 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 Start Date End Date Moustapha De Leon MD [address] [place] [address] PCP - General Family Medicine 11/08/23 Stephanie Peters, OD [address] [place] [address] Referring Physician Optometry 11/08/23 Kunal Ortiz NP [address] [place] [address] Nurse Practitioner Family Medicine 11/13/23 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 Start Date End Date Moustapha De Leon MD [address] [place] [address] PCP - General Family Medicine 11/08/23 Stephanie Peters, OD [address] [place] [address] Referring Physician Optometry 11/08/23 Kunal Ortiz NP [address] [place] [address] Nurse Practitioner Family Medicine 11/13/23 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 Start Date End Date Moustapha De Leon MD [address] [place] [address] PCP - General Family Medicine 11/08/23 Stephanie Peters, OD [address] [facility] [place] [address] Referring Physician Optometry 11/08/23 Kunal Ortiz NP [address] [place] [address] Nurse Practitioner Family Medicine 11/13/23 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 Start Date End Date Moustapha De Leon MD [address] [place] [address] PCP - General Family Medicine 11/08/23 Stephanie Peters, OD [address] [facility] [place] [address] Referring Physician Optometry 11/08/23 Kunal Ortiz NP [address] [place] [address] Nurse Practitioner Family Medicine 11/13/23 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 Start Date End Date Moustapha De Leon MD [address] [place] [address] PCP - General Family Medicine 11/08/23 Stephanie Peters OD [address] [facility] [address] Referring Physician Optometry 11/08/23 Kunal Ortiz NP [address] [place] [address] Nurse Practitioner Family Medicine 11/13/23 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 Start Date End Date Moustapha De Leon MD [address] [place] [address] PCP - General Family Medicine 11/08/23 Stephanie Peters OD [address] [facility] [place] [address] Referring Physician Optometry 11/08/23 Kunal Ortiz NP [address] [place] [address] Nurse Practitioner Family Medicine 11/13/23 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 Start Date End Date Moustapha De Leon MD [address] [place] [address] PCP - General Family Medicine 11/08/23 Stehpanie Peters OD [address] [place] [address] Referring Physician Optometry 11/08/23 Kunal Ortiz NP [address] [place] [address] Nurse Practitioner Family Medicine 11/13/23 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 Start Date End Date Moustapha De Leon MD [address] [place] [address] PCP - General Family Medicine 11/08/23 Stephanie Peters OD [address] [facility] [place] [address] Referring Physician Optometry 11/08/23 Kunal Ortiz NP [address] [place] [address] Nurse Practitioner Family Medicine 11/13/23 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 Start Date End Date Moustapha De Leon MD [address] [place] [address] PCP - General Family Medicine 11/08/23 Stephanie Peters OD [address] [place] [address] Referring Physician Optometry 11/08/23 Kunal Ortiz NP [address] [place] [address] Nurse Practitioner Family Medicine 11/13/23 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 Start Date End Date Moustapha De Leon MD [address] [place] [address] PCP - General Family Medicine 11/08/23 Stephanie Peters, OD [address] [facility] [place] [address] Referring Physician Optometry 11/08/23 Kunal Ortiz NP [address] [place] [address] Nurse Practitioner Family Medicine 11/13/23 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 Start Date End Date Moustapha De Leon MD [address] [place] [address] PCP - General Family Medicine 11/08/23 Stephanie Peters, OD [address] [place] [address] Referring Physician Optometry 11/08/23 Kunal Ortiz NP [address] [place] [address] Nurse Practitioner Family Medicine 11/13/23 Team Status: Active Member Role Status Dates ALEX SanfordC Primary Care Provider Ac tive Team Status: Inactive Member Role Status Dates Taiwo Rosa MD Attending Provider Active S tart: May 01, 2024 End: May 01, 2024 Kunal Ortiz NP-C Primary Care Provider Ac tive Start: May 01, 2024 End: May 01, 2024 Team Status: Active Member Role Status Dates Taiwo Rosa MD Attending Provider, Other Provider Active Start: May 01, 2024 Kunal Ortiz NP-C Primary Care Provider Active Start: April 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 Start Date End Date Moustapha De Leon MD [address] [place] [address] PCP - General Family Medicine 11/08/23 Stephanie Peters OD [address] [place] [address] Referring Physician Optometry 11/08/23 Kunal Ortiz NP [address] [place] [address] Nurse Practitioner Family Medicine 11/13/23 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 Start Date End Date Moustapha De Leon MD [address] [place] [phone] PCP - General Family Medicine 11/08/23 Stephanie Peters OD [facility] [place] [address] Referring Physician Optometry 11/08/23 Kunal Ortiz NP [address] [place] [address] Nurse Practitioner Family Medicine 11/13/23 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 Start Date End Date Moustapha De Leon MD [address] [place] [address] PCP - General Family Medicine 11/08/23 Stephanie Peters OD [address] [place] [address] Referring Physician Optometry 11/08/23 Kunal Ortiz NP [address] [place] [address] Nurse Practitioner Family Medicine 11/13/23 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 Start Date End Date Moustapha De Leon MD [address] [place] [address] PCP - General Family Medicine 11/08/23 Stephanie Peters OD [address] [place] [address] Referring Physician Optometry 11/08/23 Kunal Ortiz NP [address] [place] [address] Nurse Practitioner Family Medicine 11/13/23 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 Start Date End Date Moustapha De Leon MD [address] [place] [address] PCP - General Family Medicine 11/08/23 Stephanie Peters OD [address] [facility] [place] [address] Referring Physician Optometry 11/08/23 Kunal Ortiz NP [address] [place] [address] Nurse Practitioner Family Medicine 11/13/23 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 Start Date End Date Moustapha De Leon MD [address] [place] [address] PCP - General Family Medicine 11/08/23 Stephanie Peters, OD [address] [facility] [place] [address] Referring Physician Optometry 11/08/23 Kunal Ortiz NP [address] [place] [address] Nurse Practitioner Family Medicine 11/13/23 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 Start Date End Date Moustapha De Leon MD [address] [place] [address] PCP - General Family Medicine 11/08/23 Stephanie Peters, OD [address] [facility] [place] [address] Referring Physician Optometry 11/08/23 Kunal Ortiz NP [address] [place] [address] Nurse Practitioner Family Medicine 11/13/23 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 Start Date End Date Moustapha De Leon MD [address] [place] [address] PCP - General Family Medicine 11/08/23 Stephanie Peters, OD [address] [place] [address] Referring Physician Optometry 11/08/23 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 Start Date End Date Moustapha De Leon MD [address] [place] [address] PCP - General Family Medicine 11/08/23 Stephanie Peters, OD [address] [place] [address] Referring Physician Optometry 11/08/23 Delmi Love NP [address] [place] [address] Nurse Practitioner Family Medicine 07/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 Start Date End Date Moustapha De Leon MD [address] [place] [address] PCP - General Family Medicine 11/08/23 Stephanie Peters, OD [address] [place] [address] Referring Physician Optometry 11/08/23 Delmi Love NP [address] [place] [address] Nurse Practitioner Family Medicine 07/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 Start Date End Date Moustapha De Leon MD [address] [place] [address] PCP - General Family Medicine 11/08/23 Stephanie Peters, OD [address] [place] [address] Referring Physician Optometry 11/08/23 Delmi Love NP [address] [place] [address] Nurse Practitioner Family Medicine 07/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 Start Date End Date Moustapha De Leon MD [address] [place] [address] PCP - General Family Medicine 11/08/23 Stephanie Peters, OD [address] [place] [address] Referring Physician Optometry 11/08/23 Delmi Love NP [address] [place] [address] Nurse Practitioner Family Medicine 07/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 Start Date End Date Moustapha De Leon MD [address] [place] [address] PCP - General Family Medicine 11/08/23 Stephanie Peters, OD [address] [place] [address] Referring Physician Optometry 11/08/23 Delmi Love NP [address] [place] [address] Nurse Practitioner Family Medicine 07/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 Start Date End Date Jose David Godwin DO PCP - General Family Medicine 04/01/20 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 Start Date End Date Moustapha De Leon MD [address] [place] [address] PCP - General Family Medicine 11/08/23 Stephanie Peters OD [address] [place] [address] Referring Physician Optometry 11/08/23 Delmi Love NP [address] [place] [address] Nurse Practitioner Family Medicine 07/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 Start Date End Date Jose David Godwin DO PCP - General Family Medicine 04/01/20 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 Start Date End Date Jose David Godwin DO PCP - General Family Medicine 04/01/20 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 Start Date End Date Moustapha De Leon MD [address] [place] [address] PCP - General Family Medicine 11/08/23 Stephanie Peters OD [address] [place] [address] Referring Physician Optometry 11/08/23 Delmi Love NP [address] [place] [address] Nurse Practitioner Family Medicine 07/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 Start Date End Date Moustapha De Leon MD [address] [place] [address] PCP - General Family Medicine 11/08/23 Stephanie Peters, OD [address] [place] [address] Referring Physician Optometry 11/08/23 Delmi Love NP [address] [place] [address] Nurse Practitioner Family Medicine 07/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 Start Date End Date Moustapha De Leon MD [address] [place] [address] PCP - General Family Medicine 11/08/23 Stephanie Peters, OD [address] [place] [address] Referring Physician Optometry 11/08/23 Delmi Love NP [address] [place] [address] Nurse Practitioner Family Medicine 07/15/24 Team Status: Inactive Member Role Status Dates ALEX SanfordC Primary Care Provider Ac tive Start: September 10, 2024 End: September 10, 2024 Yuliet Perez APRN Attending Provider Active Start: September 10, 2024 End: September 10, 2024 Team Status: Inactive Member Role Status Dates Yuliet Perez APRN Attending Provider Active Start: September 10, 2024 End: September 10, 2024 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 Start Date End Date Moustapha De Leon MD [address] [place] [address] PCP - General Family Medicine 11/08/23 Stephanie Peters, OD [address] [place] [address] Referring Physician Optometry 11/08/23 Delmi Love NP [address] [place] [address] Nurse Practitioner Family Medicine 07/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 Start Date End Date Moustapha De Leon MD [address] [place] [address] PCP - General Family Medicine 11/08/23 Stephanie Peters, OD [address] [place] [address] Referring Physician Optometry 11/08/23 Delmi Love NP [address] [place] [address] Nurse Practitioner Family Medicine 07/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 Start Date End Date Moustapha De Leon MD [address] [place] [address] PCP - General Family Medicine 11/08/23 Stephanie Peters, OD [address] [place] [address] Referring Physician Optometry 11/08/23 Delmi Love, JADE [address] [place] [address] Nurse Practitioner Family Medicine 07/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 Start Date End Date Moustapha De Leon MD [address] [place] [address] PCP - General Family Medicine 11/08/23 Stephanie Peters, OD [address] [place] [address] Referring Physician Optometry 11/08/23 Delmi Love NP [address] [place] [address] Nurse Practitioner Family Medicine 07/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 Start Date End Date Moustapha De Leon MD [address] [place] [address] PCP - General Family Medicine 11/08/23 Stephanie Peters, OD [address] [place] [address] Referring Physician Optometry 11/08/23 Delmi Love NP [address] [place] [address] Nurse Practitioner Family Medicine 07/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 Start Date End Date Moustapha De Leon MD [address] [place] [address] PCP - General Family Medicine 11/08/23 Stephanie Peters, OD [address] [place] [address] Referring Physician Optometry 11/08/23 Delmi Love NP [address] [place] [address] Nurse Practitioner Family Medicine 07/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 Start Date End Date Moustapha De Leon MD [address] [place] [address] PCP - General Family Medicine 11/08/23 Stephanie Peters, OD [address] [place] [address] Referring Physician Optometry 11/08/23 Delmi Love NP [address] [place] [address] Nurse Practitioner Family Medicine 07/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 Start Date End Date Moustapha De Leon MD [address] [place] [address] PCP - General Family Medicine 11/08/23 Stephanie Peters, OD [address] [place] [address] Referring Physician Optometry 11/08/23 Delmi Love NP [address] [place] [address] Nurse Practitioner Family Medicine 07/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 Start Date End Date Moustapha De Leon MD [address] [place] [address] PCP - General Family Medicine 11/08/23 Stephanie Peters, OD [address] [place] [address] Referring Physician Optometry 11/08/23 Delmi Love NP [address] [place] [address] Nurse Practitioner Family Medicine 07/15/24 Team Status: [...] November 04, 2024 End: November 04, 2024 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 Start Date End Date Moustapha De Leon MD [address] [place] [address] PCP - General Family Medicine 11/08/23 Stephanie Peters, OD [address] [place] [address] Referring Physician Optometry 11/08/23 Delmi Love NP [address] [place] [address] Nurse Practitioner Family Medicine 07/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 Start Date End Date Moustapha De Leon MD [address] [place] [address] PCP - General Family Medicine 11/08/23 Stephanie Peters, OD [address] [place] [address] Referring Physician Optometry 11/08/23 Delmi Love NP [address] [place] [address] Nurse Practitioner Family Medicine 07/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 Start Date End Date Moustapha De Leon MD [address] [place] [address] PCP - General Family Medicine 11/08/23 Stephanie Peters, OD [address] [place] [address] Referring Physician Optometry 11/08/23 Delmi Love NP [address] [place] [address] Nurse Practitioner Family Medicine 07/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 Start Date End Date Moustapha De Leon MD [address] [place] [address] PCP - General Family Medicine 11/08/23 Stephanie Peters, OD [address] [facility] [place] [address] Referring Physician Optometry 11/08/23 Delmi Love NP [address] [place] [address] Nurse Practitioner Family Medicine 07/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 Start Date End Date Moustapha De Leon MD [address] [place] [address] PCP - General Family Medicine 11/08/23 Stephanie Peters, OD [address] [facility] [place] [address] Referring Physician Optometry 11/08/23 Delmi Love NP [address] [place] [address] Nurse Practitioner Family Medicine 07/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 Pt states she has trouble walking. RGT pain, 4th digit left foot corn. Pt also relates callus on lateral dorsal foot. And relates pain, numbness with toes, also relates swelling. No recent xrays. Did purchase insoles from the [employer] but states they hurt her feet. SS: 10 Reason Onset Date Comments Advice Only 07/16/2024 Rx Change Reques t Reason Onset Date Comments Med Refill 07/23/2024 Reason Onset Date Comments Med Refill 08/05/2024 Reason Onset Date Comments Med Refill 08/11/2024 Reason Comments Follow-up Left ear pain Reason Comments New Patient *3:52 pt called, the y were at wrong building on [address], they are making their way to the office now, should be within the 15 minute angela period. Peripheral vascular [id number] (ICD-10-CM) - Smoker Specialty Diagnoses / Procedures Referred By Jorge Luis sims Referred To Contact Vascular Surgery Diagnoses Peripheral vascular disease Smoker Procedures [place] OFFICE OUTPATIENT VISIT 60-74 MINS HIGH MDM [id number] (SNOMED CT) - AMB REFERRAL TO VASCULAR SURGERY Darien Blanca, DPM [address] [place] [address] Phone: tel: fax: Rik Hightower MD [address] [place] [address] Phone: tel:[phone] fax: Referral ID Status Reason Start Date Expiration Date V isits Requested Visits Authorized [id number] Pending Review 07/21/2024 01/17/2025 1 1 Reason Comments Fatigue Reason Comments FUV Metanx Bertha Cannonhussein 74yo New Patient presents for 3 month FUV of Metanx therapy. Patient relates she did not start Metanx due to cost. Patient would like a refill for the Alpha Lipoic acid. Patient had an appt. Yesterday with Neurology at [facility] in [place] (dr. Guevara)SS: 10 Reason Onset Date Comments Med Refill 11/02/2024 Reason Comments Numbness and tingling of both feet INFORMATION SOURCE (unrecogn ized section and content) DATE CREATED AUTHOR 07/08/2022 [facility] DATE CREATED AUTHOR AUTHOR'S ORGANIZ ATION 08/21/2024 [facility] DATE CREATED AUTHOR AUTHOR'S ORGANIZ ATION 11/06/2024 [facility] DATE CREATED AUTHOR AUTHOR'S ORGANIZ ATION 11/15/2024 [facility] DATE CREATED AUTHOR AUTHOR'S ORGANIZ ATION 12/27/2024 [facility] EPIC FOR RECORDS PERTAINING [...] BE BASED ON THE PRIMARY CLINICAL RECORDS. [employer] provides no warranty or guarantee of the accuracy or completeness of information in this document.
[2024-12-28 12:43] LABS: Estimated GFR (African America >60 (>=60 mL/min/1.73m^2); Estimated GFR (Non-African Ame >60 (>=60 mL/min/1.73m^2)
== END 2024-12-28 11:48 | disposition home or self-care (01) ==
LOC: LAB 11:48
PROVIDERS: PCP Nurse Practitioner
DX: Z01.818 Encounter for other preprocedural examination (principal)
CPT/HCPCS: 36415; 82565

== ENCOUNTER 2025-02-01 11:26 | Outpatient (OUT) | payer MEDICARE, SELFPAY ==
--- OUTSIDE RECORDS SUMMARY | 2025-02-01 11:32 | XMS_ITS | CCD ---
Author Organization [facility] Care Team Providers Care Procedure Rn Name Role Phone DO Jose David Godwin Primary Care Provider [phone] DO Jose David Godwin Attending Provider DO Trixie Gr Jr Other Provider Yuliet Perez Unavailable DO Jose David Godwin Primary Care Provider LUANN Perez Attending Provider SHAIKH Lorelei ENGEL Admitting Unavailable SHAIKH Lorelei ENGEL Attending Unavailable SHAIKH Lorelei ENGEL Primary Care Unavailable BIRCH RUN, DR KARI Stern Consulting Unavailable SHAIKH Lorelei ENGEL Consulting Unavailable OBION, DR GARDINER Admitting Unavailable CITLALI, DR GARDINER Attending Unavailable OBION, DR GARDINER Primary Care Unavailable OBION, DR GARDINER Consulting Unavailable OBION, DR GARDINER Admitting Unavailable OBION, DR GARDINER Attending Unavailable OBION, DR GARDINER Primary Care Unavailable BIRCH RUN, DR KARI Stern Consulting Unavailable OBION, DR GARDINER Consulting Unavailable Jose David Godwin MD Primary Care Provider Stehpanie Peters OD Unavailable Moustapha De Leon MD Primary Care Provider Diana HANSEN, Kunal Unavailable Moe MORENO, Taiwo Lakhani Attending Provider Diana TRANSFORMER COIL WINDER-CKunal Primary Care Provid er Kate TRANSFORMER COIL WINDER, Delmi Unavailable Jose David Godwin DO Primary Care Provider MIKE GANT Attending Unavailable RUSHER, DARIEN S Referring Unavailable HOUSE, JOSE DAVID P Primary Care Unavailable HOUSE, JOSE DAVID P Referring Unavailable HOUSE, JOSE DAVID P Primary Care Unavailable Yuliet Perez APRN Attending Provider [phone] Diana TRANSFORMER COIL WINDER-CKunal Primary Care Provid er Yuliet Perez APRN Attending Provider Natalee Basilio APRN Attending Provider [phone] Delmi Love Primary Care Provider Taiwo Rosa Attending Unavailable Taiwo Rosa Admitting Unavailable Kunal Ortiz Primary Care Unavaila ble NON STAFF Primary Care Unavailable Natalee Basilio Attending Unavailable Natalee Basilio Admitting Unavailable Yuliet Perez Attending Unavailable Yuliet Perez Admitting Unavailable Aichholz JADE, Delmi Unavailable JULIO CESAR BORREGO Attending Unavailable OSKARGAURAV Referring Unavailable OSKAR, GAURAV Referring Unavailable OSKAR, GAURAV Attending Unavailable OSKAR, GAURAV Attending Unavailable DANDY CORREA Attending Unavailable KUNAL ORTIZ Attending UnavailDARIEN Barragan Attending Unavailable RUSHER DARIEN S Referring Unavailable AICHHOLZ, DELMI Attending Unavailable RUSHER, DARIEN S Referring Unavailable AICHHOLZ, DELMI Attending Unavailable MIKE GANT Referring Unavailable AICHHOLZ, DELMI Attending Unavailable AICHHOLZ, DELMI Referring Unavailable JAMIA GUEVARA Attending Unavailable AICHHOLZ, DELMI Referring Unavailable RUSHER, DARIEN Perry Attending Unavailable AICHVIVIAN, DELMI Attending Unavailable AME HONG Attending Unavailable JR. GR GEORGE C Attending Unavaila ble DANDY CORREA Attending Unavailable BEN ROE Attending Unavailable KUNAL ORTIZ Attending UnavailBENJAMIN Hardwick Attending Unavailable AICHDELMI PARK Attending Unavailable Allergies Allergy Classification Reported Allergen(s) Allergy Type Date of Onset Reaction(s) Facility (1 source) Penicillin G Drug Allergy rash [facility] Other (1 source) Penicillin Drug Allergy 09-24-19 [facility] Repository (20 sources) Penicillins; Translations: [PENICILLINS] Drug Allergy 12-19-19 13 Hives, Itching, Rash [facility] Healthcare (20 sources) atorvastatin; Translations: [ATORVASTATIN] Drug Allergy 12-04-[address] [facility] Healthcare (3 sources) atorvastatin Drug Allergy 08-12-[address] [facility] (3 sources) Penicillins Propensity to adverse reactions to drug 12-19-19 [address] [facility] (1 source) Penicillin Drug Allergy 11-05-[address] [facility] Repository Medications Current Medications Medication Drug Class(es) Dates Sig (Normalized) Sig (Original) [id number] 200 actuat albuterol 0.09 mg/actuat metered dose [...] by mouth at bedtime fish oil concentrate ([place]-3) 1000 MG capsule Indications: Mixed hyperlipidemia (CMS/HCC) [...] 03/02/2024 07/16/2024 Discontinued (Therapy completed) Flonase Active F-Ehuuefallaqr-Mzyik-B12-B6 (Metanx) 3-90.314-2-35 MG capsule (20 sources) Start: 07-15-2024 End: 10-13-2024 take 1 capsule by mouth in the morning A-Itnrdmqsuxzu-Yoiun-B12-B6 (Metanx) 3-90.314-2-35 MG capsule Indications: Neuropathy, idiopathic [...] So dium 100 MCG Orally Active methylPREDNISolone (7 sources) Corticosteroid Start: 12-25-2024 methylPREDNISolone (Medrol Dospak) [...] days 10 mL 07/16/2024 07/23/2024 Active omega 8-mps-nsm-fish oil (Fish OiL) 1,000 (120-180) mg capsule (1 source) take 1 capsule by mouth in the morning omega 6-sff-ddd-fish oil (Fish OiL) 1,000 (120-180) mg capsule Take 1 capsule by mouth in the morning. Active [place] 0-Qoh-Bhd-Fish Oil (Fish Oil) 100-160-1,000 mg capsule (5 sources) Start: 04-20-2024 take 100-160 capsules by mouth twice daily Start: 04-20-2024 take 100-160 capsule s by mouth twice daily [place] 7-Ydb-Nzh-Fish Oil (Fish Oil) 100-160-1,000 mg capsule Active 2 CAP PO Twice daily April 20, 2024 1:00am Complies with drug therapy Start: 04-20-2024 take 100-160 capsule s by mouth twice daily [place] 6-Yqm-Lvj-Fish Oil (Fish Oil) 100-160-1,000 mg capsule Active 2 CAP PO Twice daily April 20, 2024 1:00am Start: 04-20-2024 take 100-160 capsule s by mouth twice daily [place] 2-Yco-Aad-Fish Oil (Fish Oil) 100-160-1,000 mg capsule Active [...] total) by mouth daily. 30 each 11 05/13/2020 Active Omeprazole Activ e prednisoLONE 3 [...] block; Translations: [Unspecified right bundle-branch block] Onset: 11-13-2024 Chronic Diabetes mellitus without complication (20 sources) [...] hand] 12-24-2024 Episodic Other connective tissue disease (4 sources) Triggering of digit; Translations: [Trigger finger, left middle finger] 12-25-2024 Episodic Other eye disorders (20 sources) Dry eyes; Translations: [Dry eye syndrome of bilateral lacrimal glands] Onset: 11-08-2023 11-08-2023 Episodic Other lower respiratory disease (2 sources) Other forms of dyspnea; Translations: [Other forms of dyspnea] Onset: 12-29-2024 Episodic Other nervous system disorders (5 sources) Neuropathy; Translations: [Hereditary and idiopathic neuropathy, unspecified] 07-15-2024 Chronic Other nervous system disorders (1 source) Polyneuropathy; Translations: [Polyneuropathy, unspecified] 10-13-2024 Chronic Other nervous system disorders (2 sources) Carpal tunnel syndrome; Translations: [Carpal tunnel syndrome, unspecified upper limb] 11-04-2024 Chronic Other nervous system disorders (4 sources) Carpal tunnel syndrome of left wrist; [...] unspecified] Onset: 08-12-2024 Episodic Residual codes; unclassified (14 sources) Lung cancer screening declined; Translations: [Procedure [...] 11-08-2023 Chronic Genitourinary symptoms and ill-defined conditions (20 sources) [...] disorders Onset: 05-23-2021 Resolved: 02-27-2024 02-27-2024 Other acquired deformities (20 sources) Acquired spondylolisthesis; Translations: [Spondylolisthesis, lumbosacral region] Onset: 09-29-2024 09-29-2024 Episodic Other ear and sense organ disorders (20 sources) Impacted cerumen in left ear; Translations: [Impacted cerumen, left ear] Onset: 12-19-2023 Resolved: 09-24-2024 12-19-2023 Episodic Other ear and sense organ disorders (20 sources) Acute otitis externa of left ear; Translations: [Unspecified acute noninfective otitis externa, left ear] Onset: 07-16-2024 Resolved: 09-24-2024 07-16-2024 Episodic Other gastrointestinal disorders (20 sources) Stool [...] Range Facility Optical coherence tomography study reporton 01-20-2025 [facility] Radiology Study observation (narrative) [facility] 36on 01-18-2025 36 Regarding CTA coronaries result from 12/29/2024: Per Gaurav Schmitt: Given flow-limiting LAD lesion w/ high calcium burden + ongoing exertional symptoms we should cath her. Spoke with patient and she agrees to heart cath. All orders entered. Patient verbalized understanding. Normal [facility] Documentationon 01-18-2025 Documentation [id number] Bertha Galarza 1950 Date Provider Department Center 01/18/2025 [id number] BRICENO [facility] CARD [place] HeartVAS Family History Problem Relation Age of Onset Coronary artery disease Mother Coronary artery disease Sister Coronary artery disease Brother Family Status - Relation Status Age at Mother Sister Brother Reason for Visit and Comments: Results [95] - Persistent exertional dyspnea and intermittent anginal chest discomfort in a high-risk 74-year-old female with lifelong tobacco use, dyslipidemia, and strong family history of premature CAD. Prior Lexiscan MPI (10/30/24) was unremarkable; however, coronary CTA with FFR-CT (12/29/24) demonstrated a moderate calcified proximal to mid LAD stenosis (~55%) with flow-limiting physiology (FFR 0.75) and a markedly elevated coronary calcium score of 740 (predominantly LAD). Despite optimal medical therapy, she rem Normal [facility] Telephoneon 01-18-2025 Telephone [id number] Bertha Galarza 1950 Provider Department Center 01/18/2025 David8[facility] Problem Relation Age of Onset Coronary artery disease Mother Coronary artery disease Sister Coronary artery disease Brother Family Status - Relation Status Age at Mother Sister Brother Normal [facility] CTA HEART CORONARY W IV CONT RAST W OR WO FFRCTon 12-29-2024 CTA HEART CORONARY W IV CONTRAST W OR WO FFRCT CTA HEART CORONARY W IV CONTRAST W OR WO FFRCT 12/29/2024 8:32 AM CLINICAL INDICATIONS: Dyspnea on exertion. Chest pain TECHNOLOGIST COMMENTS: Chest pain QUESTION FOR RADIOLOGIST: Evaluate possibility of coronary artery stenosis. PROTOCOL: Gated cardiac CTA and noncontrast calcium scoring CONTRAST: 100 mL Omnipaque 350 TECHNIQUE: Multidetector CT angiogram was obtained using retrospective ECG gating. Imaging was performed from the level of the clavicles to the level of the hemidiaphragms. In order to provide better evaluation of the anatomy and disease process, advanced off-line 3-D post-processing techniques, including 3-D volume rendered images, curving analysis of the coronary arteries, stenosis calculation and ejection fraction evaluation were performed. Gated noncontrast calcium scoring. Heart flow roadmap overview and FFR are performed Medication administered in preparation for the examination is located in nursing documentation. All CT scans at this facility use dose modulation, iterative reconstruction, and/or weight based dosing when appropriate to reduce radiation dose to as low as reasonably achievable COMPARISON: None. CORONARY ARTERY ANGIOGRAM FINDINGS: Stenoses are reported as maximum percentage diameter stenosis. Stenosis grading is reported using the following scheme: Normal: no stenosis Mild: 1-49% stenosis Moderate: 50-70% stenosis Severe: >70% stenosis Occluded Dominance of the coronary artery system: right with normal origins and course. Left Main: The left main is a normal caliber vessel which gives rise to the LAD and circumflex arteries The left main with calcified small plaque. There is mild stenosis in the LAD less than 25% Left Anterior Descending Artery: The proximal left anterior descending artery and first diagonal branch with calcified plaque. The mid-distal LAD, D2 and D3 branches with calcified plaque. There is a no evidence of myocardial bridge in the LAD segment. There is moderate stenosis in the proximal and mid LAD of approximately 55% Left Circumflex Artery: The left circumflex artery and its obtuse marginal branches with small calcified proximal plaque. There is mild stenosis less than 40% in the left circumflex. Right Coronary Artery: The right coronary artery and acute marginal branches with mild plaque. There is mild stenosis in the proximal RCA less than 20%. Cardiac Morphology: The right atrium is normal. The right ventricle is normal. The left atrium is normal. The left ventricle is normal. The pericardium is normal and there is no pericardial effusion. Cardiac Function: {reported only if retrospective ECG gating has been used} The calculated left ventricular ejection fraction is 58%, the left ventricular end-diastolic volume is 85 mL, and the left ventricular end-systolic volume is 36 mL. Stroke volume is 49 mL. There is normal wall motion of the left ventricle. Cardiac Devices and Indwelling Central Venous Lines: No pacer devices or central lines are visualized. EXTRACARDIAC FINDINGS: Other lung findings: Visualized part of the lungs appeared grossly unremarkable. Airway: Normal visualized part of the airway Pleura: No pleural effusion, thickening, or pneumothorax in the visualized pleura. Thoracic aorta and great vessels: Atherosclerotic plaques and mild calcification in the descending thoracic aorta Pulmonary arteries: Normal. Heart and pericardium: Normal. Lymph nodes: No enlarged thoracic lymph nodes. Thoracic spine: Mild bony spurring suggesting mild thoracic spondylosis Chest wall: Calcific likely benign mass in the left breast and anterior chest wall which is partially evaluated and reaching the anterior rib cage. Visualized upper abdomen: Diffuse diminished attenuation of visualized part of the liver suggesting hepatic steatosis. Otherwise, unremarkable Gated noncontrast calcium scoring revealed significant calcified plaques in the proximal and mid LAD with score of 703, score of 0 in the left main, small calcification in the left circumflex with score of 37. Score of 0 in the RCA. Total calcium scoring is 740 suggesting increased likelihood of significant coronary artery stenosis. Heart flow roadmap overview revealed moderate stenosis between 50 and 69% in the LAD proximal and mid segment as well as the first diagonal branch. There is mild stenosis in the distal left circumflex. No significant stenosis in the RCA. FFR evaluation revealed normal ratio in the distal RCA of 0.96 and in the left circumflex of 0.86. There is decreased ratio in the distal LAD of 0.75 and borderline ratio in the distal first diagonal branch of 0.82. Therefore, flow-limiting stenosis is suspected in the distal left anterior descending artery IMPRESSION: 1. Abnormal coronary CTA with . Significant calcified plaques in the proximal and mid LAD with moderate stenosis seen and FFR suggests flow-limiting stenosis (more content not included)... Invalid Interpretation Code [facility] 29on 11-13-2024 29 Addended by: GAURAV SCHMITT on: 11/13/2024 12:01 PM Modules accepted: Orders Normal [facility] Office Visiton 11-13-2024 Follow-up visit [id number] Bertha Galarza 1950 F Date Provider Department Center 11/13/2024 [id number], GAURAV JONNY [facility] Family History Problem Relation Age of Onset Coronary artery disease Mother Coronary artery disease Sister Coronary artery disease Brother Family Status - Relation Status Age at Mother Sister Brother Level of Service:25436 RI OFFICE/OUTPATIENT ESTABLISHED MOD MDM 30 MIN Normal [facility] Urine Cultureon 11-04-2024 Bacteria identified Cx Nom (U) ORGANISM: Escherichia coli (O:ESCCOL) [place] Count >100,000 Aerobic ALMA Charge (NMIC56) ---- [...] RESISTANT TO ALL B-LACTAM DRUGS. PERFORMED BY: [facility] [address] [place] [address] PATHOLOGIST CONTENT STRATEGY LEAD DAVI BURGOS M.D. Normal [facility] Comment on above: Performed By: #### C UU #### [facility] [address] [id number] [facility] Orders Onlyon 11-02-2024 Orders Only [id number] Bertha Galarza 1950 F Date Provider Department Center 11/02/2024 [id number], HISTORICAL [facility] Hos Family History Problem Relation Age of Onset Coronary artery disease Mother Coronary artery disease Sister Coronary artery disease Brother Family Status - Relation Status Age at Mother Sister Brother Normal [facility] NM UNA PERF SPECT REST STRon 11-01-2024 [facility] [address] [place] [address] Nuclear Medicine Report Signed Patient: BERTHA GALARZA MR#: [id number] : 1950 Acct:[id number] Age/Sex: 74 / F ADM Date: 10/30/24 Loc: NM Attending Dr: Gaurav Schmitt NP Ordering Physician: Gaurav Schmitt NP Date of Service: 10/30/24 Procedure(s): NM una perf SPECT rest str Accession Number(s): [id number] cc: Delmi Love NP; Gaurav Schmitt NP Patient Name: BERTHA GALARZA MR#: [id number] : 1950 Exam Date: 10/30/2024 Ordering Doctor: [...] the study was pending per attending physician [facility] . For more details please see [...] M.D. Signed By: 11/01/241834 DD/ 33 TD/TT: Coil Builder: [facility] Radiology, Radiologist, - 11/01/2024 [place] [address] Nuclear Medicine Report Signed Patient: BERTHA GALARZA MR#: [id number] : 1950 Acct:[id number] Age/Sex: 74 / F ADM Date: 10/30/24 Loc: NM Attending Dr: Gaurav Schmitt NP Ordering Physician: Gaurav Schmitt NP Date of Service: 10/30/24 Procedure(s): NM una perf SPECT rest str Accession Number(s): [id number] cc: Delmi Love NP; Gaurav Schmitt NP Patient Name: BERTHA GALARZA MR#: [id number] : 1950 Exam Date: 10/30/2024 Ordering Doctor: [...] the study was pending per attending physician [facility] . For more details please see [...] M.D. Signed By: 11/01/241834 DD/ 33 TD/TT: Coil Builder: [facility] Radiology Study observation (narrative) [facility] NM UNA PERF SPECT REST STROr dered By: Radiologist Radiology on 11-01-2024 [facility] [employer] Work Phone: ALL LIPID PROFILE (FASTING)o n 10-20-2024 CHOL HDL RATIO 3 [facility] hcare Comment on above: 3.3 - 4.4 LOW RISK 4.4 - 7.1 AVERAGE RISK 7.1 - 11.0 MODERATE RISK >11.0 HIGH RISK Cholesterol [Mass/Vol] 152 mg/dL NINF - 200 mg/dL [facility] Cholesterol in HDL [Mass/Vol] 50 mg/dL 40 - 60 mg/dL [facility] Comment on above: > or =60 mg/dl - LOW CARDIOVASCULAR RISK <40 mg/dl - HIGH CARDIOVASCULAR RISK Interpretation and review of laboratory results [facility] Magn[facility] [Mass/Vol] 32 mg/dL [facility] Comment on above: <100 mg/dl OPTIMAL 100-129 mg/dl NEAR OR ABOVE OPTIMAL 130-159 mg/dl BORDERLINE HIGH 160-189 mg/dl HIGH >190 mg/dl VERY HIGH Magnesium [Mass/Vol] 70.2 mg/dL [facility] Triglyceride [Mass/Vol] 351 mg/dL High NINF - 150 mg/dL [facility] Office Visiton 10-19-2024 Follow-up visit [id number] Bertha Galarza Kym 1950 F Date Provider Department Center 10/19/2024 [id number] SCHMITT [facility] Family History Problem Relation Age of Onset Coronary artery disease Mother Coronary artery disease Sister Coronary artery disease Brother Family Status - Relation Status Age at Mother Sister Brother Level of Service:21117 RI OFFICE/OUTPATIENT ESTABLISHED MOD MDM 30 MIN Normal [facility] XR CERVICAL SPINE 2-3 VIEWSo [...] report is generated using voice recognition reporting ([employer] On occasion, [employer] erroneously drops words from the report [...] report is generated using voice recognition reporting ([employer] On occasion, [employer] erroneously drops words from the report or replaces the spoken word with a similar sounding word. Please call with any questions/concerns regarding the report. Dictated on: 09/28/2024 1:06 PM 09/28/2024 9:36 AM This report has been electronically signed and approved by the interpreting Radiologist. Normal Not Available Laboratory - Chemistry and C hemistry - challengeon 09-10-2024 Bilirubin Ql (U) Negative [facility] Glucose (U) [Mass/Vol] Negative [facility] Ketones Ql (U) Negative [facility] pH (U) 6.0 [pH] [facility] Specific gravity (U) [Rel density] 1.025 [facility] Urobilinogen (U) [Mass/Vol] 0.2 mg/dL [facility] Laboratory - Specimen inform ationon 09-10-2024 Appearance (U) cloudy [facility] Color (U) yellow [facility] Laboratory - Urinalysison Leukocyte esterase Test strip Ql (U) large [facility] Nitrite Ql (U) Positive [facility] Protein Ql (U) 100 [facility] No Panel Informationon 09-10 Urine Occult Blood moderate [facility] Urine Cultureon 09-10-2024 Bacteria identified Cx Nom (U) ORGANISM: Escherichia coli (O:ESCCOL) [place] Count >100,000 Aerobic ALMA Charge (NMIC56) ---- [...] RESISTANT TO ALL B-LACTAM DRUGS. PERFORMED BY: [place] [address] PATHOLOGIST CONTENT STRATEGY LEAD DAVI BURGOS M.D. Normal [facility] Comment on above: Performed By: #### C UU #### [address] Urine cultureOrdered By: Litzy Perez on 09-10-2024 Bacteria identified Cx Nom (U) Escherichia coli Abnormal 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 Measurements Intervals [place] Rate: 82 P: 79 RI: 153 QRS: -70 QRSD: 120 T: 59 [...] AVENDAÑO Signed By: 08/27/24194208/27/241942 DD/ 1318 TD/TT: Coil Builder: [facility] Radiology, Radiologist, - 08/27/2024 [place] [address] Electrocardiograph Report Signed Patient: BERTHA GALARZA MR#: [id number] : 1950 Acct:[id number] Age/Sex: 74 / F ADM Date: 08/26/24 Loc: CARD Attending Dr: Delmi Love NP Ordering Physician: Delmi Love NP Date of Service: 08/26/24 Procedure(s): ECG 12 lead Accession Number(s): [id number] cc: [facility] Test Date: 2024-08-26 Pat Name: BERTHA GALARZA Department: Room: - Gender: Female 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 Measurements Intervals [place] Rate: 82 P: 79 RI: 153 QRS: -70 QRSD: 120 T: 59 [...] AVENDAÑO Signed By: 08/27/24194208/27/241942 DD/ 17 TD/TT: Coil Builder: [facility] ECG 12-LEADOrdered By: Radio logist Radiology on 08-27-2024 [facility]: ALL CBC WITH AUTO DIFFon BASOPHILS ABSOLUTE AUTO 0 [facility] Basophils/100 WBC (Bld) 0.2 % 0.2 - 2.0 % [facility] Eosinophils/100 WBC (Bld) 1.4 % 0.9 - 7.0 % [facility] Erythrocyte distribution width (RBC) [Ratio] 12.3 % 11.0 - 15.0 % [facility] Hematocrit (Bld) [Volume fraction] 42.4 % 36.0 - 48.0 % [facility] Hemoglobin (Bld) [Mass/Vol] 14.3 g/dL 12.0 - 16.0 g/dL [facility] IMMATURE GRANULOCYTES ABS AUTO 0.02 [facility] Immature granulocytes/100 WBC (Bld) 0.2 % 0.0 - 0.5 % [facility] Interpretation and review of laboratory results [facility]normal [facility] LYMPHOCYTES ABSOLUTE AUTO 1.7 [facility] Lymphocytes/100 WBC (Bld) 20.7 % 20.5 - 60.0 % [facility] MCH (RBC) [Entitic mass] 32.1 pg 26.7 - 34.0 pg [facility] MCHC (RBC) [Mass/Vol] 33.7 g/dL 29.9 - 35.2 g/dL [facility] MCV (RBC) [Entitic vol] 95.3 fL 81.0 - 99.0 fL [facility] MONOCYTES ABSOLUTE AUTO 0.8 [facility] Monocytes/100 WBC (Bld) 10.2 % 1.7 - 12.0 % [facility] NEUTROPHILS ABSOLUTE AUTO 5.4 [facility] [facility] Neutrophils/100 WBC (Bld) 67.3 % 43.0 - 75.0 % [facility] Platelet mean volume (Bld) [Entitic vol] 9.2 fL Low 9.5 - 13.5 fL [facility] TBH EO # 0.1 [facility] TBH PLT 230 [facility] TB RBC 4.45 [facility] WBC 8.1 [facility] N[facility] ECG 12-LEADon 08-26-2024 Radiology Study observation (narrative) [facility] US LOWER EXTREMITY VENO US INSUFFICIENCY BILATERALon 08-25-2024 [facility] US LOWER EXTREMITY VENOUS INSUFFICIENCY BILATERAL [...] report is generated using voice recognition reporting ([employer]). On occasion [employer] erroneously drops words from the report or replaces the spoken word with similar sounding words. Please call with any questions/concerns regarding this report.* Dictated and transcribed 08/25/24/dpd This report has been electronically signed and approved by the interpreting radiologist. Normal Not Available No Panel Informationon 07-15 Radiology Study observation (narrative) [facility] US PVR/SEGMENTAL PRESSU RES LOWERon 07-15-2024 [facility] US PVR/SEGMENTAL PRESSURES LOWER EXAM: Lower [...] report is generated using voice recognition reporting ([employer]). On occasion [employer] erroneously drops words from the report or [...] There is slight increase in SEPULVEDA angle. [employer] XR Foot - right 3 Viewson [...] There is slight increase in SEPULVEDA angle. [employer] [facility] CALCIUMon 06-05-2024 Calcium [Mass/Vol] 9.3 mg/dL 8.5 - 10. 1 mg/dL [facility] [employer] [facility] [facility] Office Visiton 06-02-2024 Follow-up visit [id number] Bertha Galarza 1950 F Date Provider Department Center 06/02/2024 [id number] CESAR [facility] Family History Problem Relation Age of Onset Coronary artery disease Mother Coronary artery disease Sister Coronary artery disease Brother Family Status - Relation Status Age at Mother Sister Brother Level of Service:09647 RI OFFICE/OUTPATIENT ESTABLISHED LOW MDM 20 MIN Normal [facility] Optical coherence tomography study reporton 05-25-2024 [facility] Radiology Study observation (narrative) [facility] Jonathan 05-01-2024 L - -------- Specimen: [id number] Received: 05/01/24 Status: LUCAS Lin Num: [id number] Spec Type: Surgical Subm Dr: Taiwo Rosa MD Tissues: A Colon Biopsy (CECUM COLON POLYPS) B Colon Biopsy (TRANSVERSE COLON POLYPS) C Colon Biopsy (DESCENDING COLON POLYPS) D Colon Biopsy (SIGMOID COLON POLYP) Procedures: RANDALL/Cayden Jackson/Rand L4/4 -------- Age/ Patient Sex Location Account Attending Physician -------- Bertha Galarza 74/F [id number] Taiwo Rosa MD -------- SPEC NUM: [id number] RECD: 05/01/24 STATUS: LUCAS LIN NUM: [id number] ANGELITA: 05/01/[address] [facility] [address]: Taiwo Rosa MD ENTERED: 05/01/[address] [facility] [address]: SPEC TYPE: Surgical DEPT: S ENTERED BY: [id number] RECV BY: [id number] ORDERED: HE/10, Gross/Micro L4/4 ORDERED: HE/10, Gross/Micro [...] submitted in a single cassette. (1, ns, S25- A) JG -------- Specimen: [id number] Received: 05/01/24 Status: LUCAS Valeria Num: [id number] Spec Type: Surgical Subm Dr: Taiwo Rosa MD Tissues: A Colon Biopsy (CECUM COLON POLYPS) B Colon Biopsy (TRANSVERSE COLON POLYPS) C Colon Biopsy (DESCENDING COLON POLYPS) D Colon Biopsy (SIGMOID COLON POLYP) Procedures: Gross/Micro L4/4 -------- Patient: Bertha Galarza [id number] (Continued) -------- Specimen: [id number] Received: 05/01/24 (Continued) Gross Description (Continued) Signed (signature on file) Rik Juárez MD 05/04/24 1453 -------- Specimen: [id number] Received: 05/01/24 Status: LUCAS Lin Num: [id number] Spec Type: Surgical Subm Dr: Taiwo Rosa MD Tissues: A Colon Biopsy (CECUM COLON POLYPS) B Colon Biopsy (TRANSVERSE COLON POLYPS) C Colon Biopsy (DESCENDING COLON POLYPS) D Colon Biopsy (SIGMOID COLON POLYP) Procedures: Gross/Micro L4/4 -------- Patient: Bertha Galarza [id number] (Continued) -------- Specimen: [id number] Received: 05/01/24-2657 (Continued) Gross Description (Continued) Part B is [...] specimen entirely submitted in B2. (2, ns, 4- B) Part C is received in formalin labeled with the patients name, date of , and descending colon are 2 sen-boles, focally erythematous, friable, 0.3 and 0.5 cm in greatest dimension polypoid fragments. The specimen is entirely submitted in a single cassette. (1, ns, 6- C) Part D is received in formalin [...] submitted in a single cassette. (1, ns, 9 D) CPT Codes 09211w6 -------- (more content not included)... Normal [facility] MLR HEMOGLOBIN A1Con 024 Glucose [Mass/Vol] 123 mg/dL [facility] HbA1c (Bld) [Mass fraction] 5.9 % 4.5 - 6.2 % [facility] Comment on above: ADA RECOMMENDED LIMI T 4.0 - 6.0 ADA THERAPEUTIC TARGET < 7.0 ACTION SUGGESTED > 7.0 [facility] ALL LIPID PROFILE (FASTING)o n 02-18-2024 CHOL HDL RATIO 3.3 [facility] Comment on above: 3.3 - 4.4 LOW RISK 4.4 - 7.1 AVERAGE RISK 7.1 - 11.0 MODERATE RISK >11.0 HIGH RISK Cholesterol [Mass/Vol] 160 mg/dL NINF - 200 mg/dL [facility] Cholesterol in HDL [Mass/Vol] 49 mg/dL 40 - 60 mg/dL [facility] Comment on above: > or =60 mg/dl - LOW CARDIOVASCULAR RISK <40 mg/dl - HIGH CARDIOVASCULAR RISK Interpretation and review of laboratory results Abnormal [facility] re Magnesium [Mass/Vol] 49 mg/dL [facility] Comment on above: <100 mg/dl OPTIMAL 100-129 mg/dl NEAR OR ABOVE OPTIMAL 130-159 mg/dl BORDERLINE HIGH 160-189 mg/dl HIGH >190 mg/dl VERY HIGH Magnesium [Mass/Vol] 62.6 mg/dL [facility] Triglyceride [Mass/Vol] 313 mg/dL High NINF - 150 mg/dL [facility] e TSH W/REFLEX T4on 01-22-2024 TSH Qn 0.892 m[IU]/L [facility] e DIRECT LDLon 07-03-2022 Cholesterol in LDL [Mass/Vol] 174 mg/dL Normal [facility] Comment on above: Performed By: #### D LDL, LIPID, TSH #### [facility] [address] [address] [address] Radha Farris DLDL NORMAL SEE BELOW Normal [facility] Comment on above: Result Comment: <100 mg/dl OPTIMAL 100 - 129 mg/dl NEAR OR ABOVE OPTIMAL 130 - 159 mg/dl BORDERLINE HIGH 160 - 189 mg/dl HIGH >190 mg/dl VERY HIGH Performed By: #### D LDL, LIPID, TSH #### [facility] [address] [address] [address] Radha Farris LIPID PROFILEon 07-03-2022 CHOL-HDL RATIO NORM SEE BELOW Normal [facility] Comment on above: Result Comment: 3.3 - 4.4 LOW RISK 4.4 - 7.1 AVERAGE RISK 7.1 - 11.0 MODERATE RISK >11.0 HIGH RISK Performed By: #### D LDL, LIPID, TSH #### [facility] [address] [address] [address] Radha Farris Cholesterol [Mass/Vol] 395 mg/dL Critically high <=200 [facility] Comment on above: Performed By: #### D LDL, LIPID, TSH #### [facility] [address] [address] [address] Radha Farris Cholesterol in HDL [Mass/Vol] 35 mg/dL Critically low 40-60 [facility] Comment on above: Performed By: #### D LDL, LIPID, TSH #### [facility] [address] [address] [address] Radha Farris Cholesterol.total/C holesterol in HDL [Mass ratio] 11.3 {ratio} Normal [facility] Comment on above: Performed By: #### D LDL, LIPID, TSH #### [facility] [address] [address] [address] Radha Farris HDL NORMAL > or = 60 mg/dl - LO W CARDIOVASCULAR RISK <40 mg/dl - HIGH CARDIOVASCULAR RISK Normal [facility] Comment on above: Performed By: #### D LDL, LIPID, TSH #### [facility] [address] [place], [place] [address] Dr. Radha Farris Triglyceride [Mass/Vol] 935 mg/dL Critically high <=150 [facility] Comment on above: Performed By: #### D LDL, LIPID, TSH #### [facility] [address] [place], [place] [address] Dr. Radha Farris TSHon 07-03-2022 TSH 0.906 uIU/mL Normal 0.358-3.740 [facility] Comment on above: Performed By: #### D LDL, LIPID, TSH #### [facility] [id number] Radha Farris XR LSPINE 2_3 VIEWSon [...] by: KARI KAN Date: 2022-07-03 13:22 Normal [facility] MAMM SCREEN 3D RABIA CADon 03-29-2022 MG MAMM SCREEN 3D RABIA CAD Patient: BERTHA GALARZA Exam Date: 03/29/2022 : 1950 Gender:F Ordering : DR JOSE DAVID EppersonOJeramy Admission #: [id number] Family : Order #: [id number] CLICK HERE TO VIEW EXAM RADIOLOGY REPORT [...] colon cancer at age 55. LOCATION: [facility] BREAST COMPOSITION: Scattered areas fibroglandular density. FINDINGS: [...] MD on 03/29/2022 at 13:23 Normal [facility] T4on 02-06-2022 T4 [Mass/Vol] 9.60 ug/dL Normal 4.80-13.90 [facility] Comment on above: Performed By: #### T 4, TSH #### [facility] [address] [address] [address] Radha Farris TSHon 02-06-2022 TSH 0.188 uIU/mL Critically low 0.358-3.740 [facility] Comment on above: Performed By: #### T 4, TSH #### [facility] [id number] Radha Farris Urine culture routineOrdered By: Yuliet Perez on 11-29-2021 Bacteria identified Cx Nom (U) Escherichia coli [facility] Urinalysis - AUTOMATEDon Appearance (U) clowdy [employer] Other Bilirubin Ql (U) Negative [employer] Other Color (U) yellow [employer] Other Glucose Ql (U) Negative [employer] Other Hemoglobin Ql (U) small [employer] Other Ketones Ql (U) Negative [employer] Other Leukocyte esterase Test strip Ql (U) large [employer] Other Nitrite Ql (U) Negative [employer] Other pH (U) 6.0 [pH] [employer] Other Protein Ql (U) 30 [employer] Other Specific gravity (U) [Rel density] 1.020 [employer] Other Urobilinogen (U) [Mass/Vol] 0.2 mg/dL [employer] Other Urinalysis - AUTOMATED [employer] Other Urine Cultureon 11-26-2021 Urine Culture 20,000 [employer] Other Urine Culture <16 Susceptible [employer] Other Urine Culture <8 Susceptible [employer] Other Urine Culture <4 Susceptible [employer] Other Urine Culture <2 Susceptible [employer] Other Urine Culture <1 Susceptible [employer] Other Urine Culture <0.5 Susceptible [employer] Other Urine Culture <32 Susceptible [employer] Other Urine Culture <2/38 Susceptible [employer] Other Vital Signs Date Time Vital Sign Value Performing Clinician Facility 11-09-2024 15:15-0400 Body mass index (BMI) [Ratio] 32.35 kg/m2 Delmi Love [employer] Work Phone: [facility] [email or web address] 11-09-2024 15:15-0400 Body temperature 98.49 [degF] Delmi Love NP Work Phone: [facility] [email or web address] 11-09-2024 15:15-0400 Body weight 90.9 kg Delmi Love [employer] Work Phone: [facility] 11-09-2024 15:15-0400 Diastolic blood pressure 76 mm[Hg] Delmi Jonesholz [employer] Work Phone: [facility] 11-09-2024 15:15-0400 Heart rate 84 /min Delmikym Jonesholz [employer] Work Phone: [facility] 11-09-2024 15:15-0400 Respiratory rate 18 /min Delmikym Perezz [employer] Work Phone: [facility] 11-09-2024 15:15-0400 SaO2% (BldA) [Mass fraction] 93 % Delmi Perezz [employer] Work Phone: [facility] 11-09-2024 15:15-0400 Systolic blood pressure 132 mm[Hg] Delmi Perezz [employer] Work Phone: [facility] 11-04-2024 18:28-0400 Body height 167.64 cm Kunal Ortiz [employer] Work Phone: [facility] 11-04-2024 18:28-0400 Body mass index (BMI) [Ratio] 32.3 kg/m2 Kunal Ortiz [employer] Work Phone: [facility] 11-04-2024 18:28-0400 Body temperature 97.4 [degF] Kunal Ortiz [employer] Work Phone: [facility] 11-04-2024 18:28-0400 Body weight 90.71 kg Kunal Ortiz [employer] Work Phone: [facility] 11-04-2024 18:28-0400 Diastolic blood pressure 73 mm[Hg] Kunal Ortiz [employer] Work Phone: [facility] 11-04-2024 18:28-0400 Heart rate 101 /min Kunal Ortiz [employer] Work Phone: [facility] 11-04-2024 18:28-0400 Respiratory rate 18 /min Kunal Ortiz [employer] Work Phone: [facility] 11-04-2024 18:28-0400 SaO2% (BldA) [Mass fraction] 95 % Kunal Petersonpatrick [employer] Work Phone: [facility] 11-04-2024 18:28-0400 Systolic blood pressure 142 mm[Hg] Kunal Petersonpatrick [employer] Work Phone: [facility] 10-14-2024 10:34-0400 Body height 167.6 cm Darien Moura DPM Work Phone: [facility] 10-14-2024 10:34-0400 Body mass index (BMI) [Ratio] 32.77 kg/m2 Darien Blanca DPM Work Phone: [facility] 10-14-2024 10:34-0400 Body weight 92.08 kg Darien Blanca DPM Work Phone: [facility] 09-24-2024 15:38-0400 Body mass index (BMI) [Ratio] 32.77 kg/m2 Delmi Karenholz [employer] Work Phone: [facility] 09-24-2024 15:38-0400 Body temperature 98.29 [degF] Delmi Karenholz [employer] Work Phone: [facility] 09-24-2024 15:38-0400 Body weight 92.08 kg Delmi Aichholz [employer] Work Phone: [facility] 09-24-2024 15:38-0400 Diastolic blood pressure 64 mm[Hg] Delmi Aichholz [employer] Work Phone: [facility] 09-24-2024 15:38-0400 Heart rate 76 /min Delmi Aichholz [employer] Work Phone: [facility] 09-24-2024 15:38-0400 Respiratory rate 18 /min Delmi Love [employer] Work Phone: [facility] 09-24-2024 15:38-0400 SaO2% (BldA) [Mass fraction] 93 % Delmi Love [employer] Work Phone: [facility] 09-24-2024 15:38-0400 Systolic blood pressure 112 mm[Hg] Delmi Love [employer] Work Phone: [facility] 09-10-2024 14:22-0400 Body height 167.64 cm [facility] 09-10-2024 14:22-0400 Body mass index (BMI) [Ratio] 32.5 kg/m2 [facility] 09-10-2024 14:22-0400 Body temperature 97.7 [degF] [facility] 09-10-2024 14:22-0400 Body weight 91.34 kg [facility] 09-10-2024 14:22-0400 Diastolic blood pressure 69 mm[Hg] [facility] 09-10-2024 14:22-0400 Heart rate 83 /min [facility] 09-10-2024 14:22-0400 Respiratory rate 18 /min [facility] 09-10-2024 14:22-0400 SaO2% (BldA) [Mass fraction] 95 % [facility] 09-10-2024 14:22-0400 Systolic blood pressure 133 mm[Hg] [facility] 08-18-2024 16:03-0400 Body height 165.1 cm Mike Gant MD Work Phone: [facility] 08-18-2024 16:03-0400 Body mass index (BMI) [Ratio] 33.95 kg/m2 Mike Gant MD Work Phone: [facility] 08-18-2024 16:03-0400 Body weight 92.53 kg Mike Gant MD Work Phone: [facility] 08-18-2024 16:03-0400 Diastolic blood pressure 76 mm[Hg] Mike Gant MD Work Phone: [facility] 08-18-2024 16:03-0400 Heart rate 83 /min Mike Gant MD Work Phone: [facility] 08-18-2024 16:03-0400 SaO2% (BldA) [Mass fraction] 94 % Mike Gant MD Work Phone: [facility] 08-18-2024 16:03-0400 Systolic blood pressure 120 mm[Hg] Mike Gant MD Work Phone: [facility] 08-12-2024 13:44-0400 Body mass index (BMI) [Ratio] 32.89 kg/m2 Delmi Aichholz [employer] Work Phone: [facility] 08-12-2024 13:44-0400 Body temperature 97.59 [degF] Delmi Aichholz [employer] Work Phone: [facility] 08-12-2024 13:44-0400 Body weight 92.44 kg Delmi Aichholz [employer] Work Phone: [facility] 08-12-2024 13:44-0400 Diastolic blood pressure 72 mm[Hg] Delmi Aichholz [employer] Work Phone: [facility] 08-12-2024 13:44-0400 Heart rate 82 /min Delmi Aichholz [employer] Work Phone: [facility] 08-12-2024 13:44-0400 Respiratory rate 20 /min Delmi Aichholz [employer] Work Phone: [facility] 08-12-2024 13:44-0400 SaO2% (BldA) [Mass fraction] 94 % Delmi Aichholz [employer] Work Phone: [facility] 08-12-2024 13:44-0400 Systolic blood pressure 120 mm[Hg] Delmi Aichholz [employer] Work Phone: [facility] 07-16-2024 11:41-0400 Body mass index (BMI) [Ratio] 32.64 kg/m2 Delmi Love [employer] Work Phone: [facility] 07-16-2024 11:41-0400 Body temperature 98.29 [degF] Delmi Love [employer] Work Phone: [facility] 07-16-2024 11:41-0400 Body weight 91.72 kg Delmi Love [employer] Work Phone: [facility] 07-16-2024 11:41-0400 Diastolic blood pressure 70 mm[Hg] Delmi Love [employer] Work Phone: [facility] 07-16-2024 11:41-0400 Heart rate 95 /min Delmi Jonesvivian [employer] Work Phone: [facility] 07-16-2024 11:41-0400 Respiratory rate 18 /min Delmi Love [employer] Work Phone: [facility] 07-16-2024 11:41-0400 SaO2% (BldA) [Mass fraction] 97 % Delmi Love [employer] Work Phone: [facility] 07-16-2024 11:41-0400 Systolic blood pressure 108 mm[Hg] Delmi Jonesgeminilacie [employer] Work Phone: [facility] 07-15-2024 10:32-0400 Body height 167.6 cm Darien Blanca DPM Work Phone: [facility] 07-15-2024 10:32-0400 Body mass index (BMI) [Ratio] 32.01 kg/m2 Darien Blanca DPM Work Phone: [facility] 07-15-2024 10:32-0400 Body weight 89.95 kg Darien Blanca DPM Work Phone: [facility] 05-28-2024 10:24-0500 Body height 167.6 cm Kunal Ortiz [employer] Work Phone: [facility] 05-28-2024 10:24-0500 Body mass index (BMI) [Ratio] 32.01 kg/m2 Kunal Ortiz [employer] Work Phone: [facility] 05-28-2024 10:24-0500 Body temperature 96.3 [degF] Kunal Ortiz [employer] Work Phone: [facility] 05-28-2024 10:24-0500 Body weight 89.95 kg Kunal Ortiz [employer] Work Phone: [facility] 05-28-2024 10:24-0500 Diastolic blood pressure 68 mm[Hg] Kunal Ortiz [employer] Work Phone: [facility] 05-28-2024 10:24-0500 Heart rate 67 /min Kunal Ortiz [employer] Work Phone: [facility] 05-28-2024 10:24-0500 Respiratory rate 16 /min Kunal Ortiz [employer] Work Phone: [facility] 05-28-2024 10:24-0500 SaO2% (BldA) [Mass fraction] 95 % Kunal Ortiz [employer] Work Phone: [facility] 05-28-2024 10:24-0500 Systolic blood pressure 122 mm[Hg] Kunal Ortiz [employer] Work Phone: [facility] 05-01-2024 11:20-0500 Diastolic blood pressure 60 mm[Hg] Kunal Ortiz [employer] Work Phone: [facility] 05-01-2024 11:20-0500 Heart rate 70 /min Kunal Ortiz [employer] Work Phone: [facility] 05-01-2024 11:20-0500 Respiratory rate 16 /min Kunal Ortiz [employer] Work Phone: [facility] 05-01-2024 11:20-0500 SaO2% (BldA) [Mass fraction] 99 % Kunal Petersonpatrick [employer] Work Phone: [facility] 05-01-2024 11:20-0500 Systolic blood pressure 112 mm[Hg] Kunal Petersonpatrick [employer] Work Phone: [facility] 05-01-2024 09:46-0500 Body height 167.64 cm Kunal Ortiz [employer] Work Phone: [facility] 05-01-2024 09:46-0500 Body weight 86.18 kg Kunal Ortiz [employer] Work Phone: [facility] 04-13-2024 11:28-0500 Body height 167.6 cm Delmi Jonesholz [employer] Work Phone: [facility] 04-13-2024 11:28-0500 Body mass index (BMI) [Ratio] 31.64 kg/m2 Delmi Karenholz [employer] Work Phone: [facility] 04-13-2024 11:28-0500 Body temperature 97.59 [degF] Delmi Karenholz [employer] Work Phone: [facility] 04-13-2024 11:28-0500 Body weight 88.91 kg Delmi Magdalenahholz [employer] Work Phone: [facility] 04-13-2024 11:28-0500 Diastolic blood pressure 78 mm[Hg] Delmi Aichholz [employer] Work Phone: [facility] 04-13-2024 11:28-0500 Heart rate 86 /min Delmi Aichholz [employer] Work Phone: [facility] 04-13-2024 11:28-0500 Respiratory rate 19 /min Delmi Karenholz [employer] Work Phone: [facility] 04-13-2024 11:28-0500 SaO2% (BldA) [Mass fraction] 95 % Delmi Love [employer] Work Phone: [facility] 04-13-2024 11:28-0500 Systolic blood pressure 110 mm[Hg] Delmi Love [employer] Work Phone: [facility] 02-27-2024 10:36-0500 Body height 167.6 cm Kunal Ortiz [employer] Work Phone: [facility] 02-27-2024 10:36-0500 Body mass index (BMI) [Ratio] 31.51 kg/m2 Kunal Ortiz [employer] Work Phone: [facility] 02-27-2024 10:36-0500 Body temperature 97.59 [degF] Kunal Ortiz [employer] Work Phone: [facility] 02-27-2024 10:36-0500 Body weight 88.54 kg Kunal Ortiz [employer] Work Phone: [facility] 02-27-2024 10:36-0500 Diastolic blood pressure 64 mm[Hg] Kunal Ortiz [employer] Work Phone: [facility] 02-27-2024 10:36-0500 Heart rate 78 /min Kunal Ortiz [employer] Work Phone: [facility] 02-27-2024 10:36-0500 Respiratory rate 16 /min Kunal Ortiz [employer] Work Phone: [facility] 02-27-2024 10:36-0500 Systolic blood pressure 128 mm[Hg] Kunal Ortiz [employer] Work Phone: [facility] 02-13-2024 13:56-0400 Body height 167.6 cm Ben GIVENSM Work Phone: [facility] 02-13-2024 13:56-0400 Body mass index (BMI) [Ratio] 32.28 kg/m2 Ben Roe DPM Work Phone: [facility] 02-13-2024 13:56-0400 Body weight 90.72 kg Ben Roe DPM Work Phone: [facility] 02-13-2024 13:56-0400 Diastolic blood pressure 80 mm[Hg] Ben Roe DPM Work Phone: [facility] 02-13-2024 13:56-0400 Heart rate 78 /min Ben Roe DPM Work Phone: [facility] 02-13-2024 13:56-0400 Systolic blood pressure 129 mm[Hg] Ben Roe DPM Work Phone: [facility] 12-19-2023 11:36-0400 Body height 167.6 cm Kunal Ortiz [employer] Work Phone: [facility] 12-19-2023 11:36-0400 Body mass index (BMI) [Ratio] 31.64 kg/m2 Kunal Ortiz [employer] Work Phone: [facility] 12-19-2023 11:36-0400 Body temperature 97.59 [degF] Kunal Ortiz [employer] Work Phone: [facility] 12-19-2023 11:36-0400 Body weight 88.91 kg Kunal Ortiz [employer] Work Phone: [facility] 12-19-2023 11:36-0400 Diastolic blood pressure 68 mm[Hg] Kunal Ortiz [employer] Work Phone: [facility] 12-19-2023 11:36-0400 Heart rate 75 /min Kunal Ortiz [employer] Work Phone: [facility] Comment on above: 95% 02 12-19-2023 11:36-0400 Systolic blood pressure 118 mm[Hg] Kunal Ortiz [employer] Work Phone: [facility] 11-26-2021 11:15-0400 Body height 167.64 cm Yuliet Perez Other [employer] Other 11-26-2021 11:15-0400 Body mass index (BMI) [Ratio] 30.66 kg/m2 Yuliet Perez Other [employer] Other 11-26-2021 11:15-0400 Body temperature 98 [degF] Yuliet Perez Other [employer] Other 11-26-2021 11:15-0400 Body weight 86.18 kg Yuliet Perez Other [employer] Other 11-26-2021 11:15-0400 Diastolic blood pressure 61 mm[Hg] Yuliet Perez Other [employer] Other 11-26-2021 11:15-0400 SaO2% (BldA) [Mass fraction] 98 % Yuliet Perez Other [employer] Other 11-26-2021 11:15-0400 Systolic blood pressure 117 mm[Hg] Yuliet Perez Other [employer] Other Encounters Encounter Date Encounter Type Care Provider Facility Start: 01-20-2025 End: 01-20-2025 Tobyo yumiko Correa DO Work Phone: [facility] Start: 01-20-2025 End: 01-20-2025 Candido Correa DO Work Phone: [facility] Start: 01-20-2025 End: 01-20-2025 ambulatory DANDY CORREA Not Available Start: 01-13-2025 End: 01-13-2025 Candido Gr DO Work Phone: [facility] Start: 01-13-2025 End: 01-13-2025 Bamboo flowsheet Trixie Gr DO Work Phone: [facility] Start: 01-13-2025 End: 01-13-2025 Office outpatient visit 25 minutes Trixie Gr DO Work Phone: [facility] Comment on above: Trigger middle finge r of left hand (Primary Dx); Carpal tunnel syndrome of left wrist Start: 01-13-2025 End: 01-13-2025 ambulatory JR. TRIXIE Sanches SIMÓN Not Available Start: 12-30-2024 End: 12-30-2024 ambulatory [facility] Start: 12-29-2024 End: 12-29-2024 ambulatory [facility] Start: 12-25-2024 End: 12-25-2024 Bamboo flowsheet Ame ROA Work Phone: [facility] Start: 12-25-2024 End: 12-25-2024 Bamboo flowsheet Ame ROA Work Phone: [facility] Start: 12-25-2024 End: 12-25-2024 Office outpatient visit 25 minutes Ame ROA Work Phone: [facility] Comment on above: Left hand pain (Prim ramón Dx); Trigger middle finger of left hand; Carpal tunnel syndrome of left wrist Start: 12-25-2024 End: 12-25-2024 ambulatory AME HONG Not Available Start: 11-13-2024 End: 11-13-2024 ambulatory [facility] Start: 11-10-2024 End: 11-10-2024 Refill Delmi Love NP Work Phone: [facility] Comment on above: Recurrent UTI (urina ry tract infection) (Primary Dx) Start: 11-09-2024 End: 11-09-2024 Office outpatient visit 25 minutes Delmi Love [employer] Work Phone: [facility] Comment on above: Recurrent UTI (urina ry tract infection) (Primary Dx); Numbness and tingling of both feet; Spondylosis of cervical spine; Tobacco dependence; Other fatigue; Cigarette nicotine dependence without complication; Lung cancer screening declined by patient Start: 11-09-2024 End: 11-09-2024 ambulatory DELMI LOVE Not Available Start: 11-09-2024 End: 11-09-2024 Bamboo flowsheet Delmi Love [employer] Work Phone: [facility] Start: 11-09-2024 End: 11-09-2024 Bamboo flowsheet Delmi Love [employer] Work Phone: [facility] Start: 11-09-2024 End: 11-09-2024 Telephone encounter Delmi Love [employer] Work Phone: [facility] Start: 11-04-2024 End: 11-04-2024 Departed Referred Natalee Wang NETWORK CONTROLLER -Lab [facility] Work Phone: Start: 11-04-2024 End: 11-04-2024 ambulatory Kunal Ortiz [employer]-C Work Phone: [facility] Work Phone: Start: 11-04-2024 End: 11-04-2024 Patient encounter procedure Natalee Wang [facility]WORK [facility] Work Phone: Start: 11-02-2024 End: 11-02-2024 Refill Delmi Love [employer] Work Phone: [facility] Comment on [...] 10-20-2024 End: 10-20-2024 Telephone encounter Delmi Love [employer] Work Phone: [facility] Start: 10-19-2024 End: 10-19-[address] [facility] Start: 10-14-2024 End: 10-14-2024 ambulatory DARIEN [...] 09-29-2024 End: 09-29-2024 Orders Only Delmi Love [employer] Work Phone: [facility] Comment on above: Numbness and tinglin g of both feet (Primary Dx); Spondylosis of cervical spine; Acquired spondylolisthesis of lumbosacral region Start: 09-28-2024 End: 09-28-2024 ambulatory DELMI LOVE Not Available Start: 09-25-2024 End: 09-25-2024 Telephone encounter Jamia Guevara MD Work Phone: [facility] Start: 09-24-2024 End: 09-24-2024 Office outpatient visit 25 minutes Delmi Love [employer] Work Phone: [facility] Comment on above: Numbness and tinglin g of both feet (Primary Dx); Tobacco dependence; Other fatigue; Hypothyroidism, unspecified type ; Lumbar back pain; Neck pain; Other chest pain Start: 09-24-2024 End: 09-24-2024 ambulatory DELMI LOVE Not Available Start: 09-24-2024 End: 09-24-2024 Bamboo flowsheet Delmi Love [employer] Work Phone: [facility] Start: 09-24-2024 End: 09-24-2024 Bamboo flowsheet Delmi Love [employer] Work Phone: [facility] Start: 09-14-2024 End: 09-14-2024 Refill Delmi Love [employer] Work Phone: [facility] Comment on above: UTI symptoms (Primar y Dx) Start: 09-10-2024 End: 09-10-2024 Departed Referred Yuliet Perez NETWORK CONTROLLER Work Phone: [facility] [place] Work Phone: Start: 09-10-2024 End: 09-10-2024 ambulatory Yuliet Perez [facility] Work Phone: Start: 09-10-2024 End: 09-10-2024 Patient encounter procedure [facility] Work Phone: Start: 08-26-2024 End: 08-27-2024 Clinisync Result Encounter Delmi Love [employer] Work Phone: [facility] Unsolicited Start: 08-26-2024 End: 08-27-2024 Clinisync Result Encounter Delmi Love [employer] Work Phone: [facility] Unsolicited Start: 08-25-2024 End: 08-25-2024 Orders Only Delmi Love [employer] Work Phone: [facility] Comment on above: Vitamin D deficiency (Primary Dx) Start: 08-19-2024 End: 08-19-2024 Refill Delmi Chrisz [employer] Work Phone: [facility] Comment on above: Vitamin D deficiency (Primary Dx) Start: 08-18-2024 End: 08-18-2024 ambulatory MIKE GANT [facility] Start: 08-18-2024 End: 08-18-2024 Office outpatient new 45 minutes Mike Gant MD Work Phone: [facility] Comment on above: Lower extremity tiara a (Primary Dx); Dyslipidemia Start: 08-17-2024 End: 08-17-2024 Telephone encounter Shelli Francis CMA [facility] Start: 08-12-2024 End: 08-12-2024 Bamboo flowsheet Delmi Kate [employer] Work Phone: [facility] Start: 08-12-2024 End: 08-12-2024 Bamboo flowsheet Delmi Kate [employer] Work Phone: [facility] Start: 08-12-2024 End: 08-12-2024 Office outpatient visit 25 minutes Delmi Love [employer] Work Phone: [facility] Comment on above: Other fatigue (Prima ry Dx); Hypothyroidism, unspecified type (CMS/HCC); Acute otitis externa of left ear, unspecified type; Mixed hyperlipidemia (CMS/HCC); Tobacco dependence; Hyperlipidemia, unspecified hyperlipidemia type (CMS/HCC); Numbness and tingling of both feet; Vitamin D deficiency; Family history of coronary artery disease Start: 08-12-2024 End: 08-12-2024 ambulatory DELMI AICHHOLZ Not Available Start: 08-12-2024 ambulatory JOSE DAVID Mclean [facility] Start: 08-11-2024 End: 08-11-2024 Refill Delmi Aichholz [employer] Work Phone: [facility] Comment on above: Hyperlipidemia, unsp ecified hyperlipidemia type (CMS/HCC) Start: 08-05-2024 End: 08-05-2024 Refill Delmikym Love [employer] Work Phone: [facility] Comment on above: Hypothyroidism, unsp ecified type (CMS/HCC) Start: 07-23-2024 End: 07-24-2024 Refill Delmi Kate [employer] Work Phone: [facility] Comment on above: Mixed hyperlipidemia (CMS/HCC) Start: 07-21-2024 End: 07-21-2024 Telephone encounter Darien Blanca DPM Work Phone: [facility] Start: 07-20-2024 End: 07-20-2024 ambulatory DARIEN BLANCA Not Available Start: 07-16-2024 End: 07-17-2024 Telephone encounter Darien Blanca DPM Work Phone: [facility] Comment on above: Advice Only (Rx Frazier ge Request) Start: 07-16-2024 End: 07-16-2024 Office outpatient visit 10 minutes Delmi Love [employer] Work Phone: [facility] Comment on above: Acute otitis externa of left ear, unspecified type (Primary Dx); Tobacco dependence Start: 07-16-2024 End: 07-16-2024 ambulatory DELMI AICHHOLZ Not Available Start: 07-15-2024 End: 07-15-2024 Bamboo flowsheet Darien S Rusher DPM Work Phone: [facility] Start: 07-15-2024 End: 07-15-2024 Bamboo flowsheet Darien S Rusher DPM Work Phone: [facility] Start: 07-15-2024 End: 07-15-2024 Office outpatient visit 25 minutes Darien Blanca DPM Work Phone: [facility] Comment on above: Neuropathy, idiopath ic (Primary Dx); Neuritis; Pain in both feet; Peripheral vascular disease (CMS/HCC); Smoker Start: 07-15-2024 End: 07-15-2024 ambulatory DARIEN BLANCA Not Available Start: 06-07-2024 End: 06-07-2024 Orders Only Delmi Jonesgeminilacie [employer] Work Phone: [facility] Comment on above: Prediabetes (Primary Dx); Mixed hyperlipidemia (CMS/HCC); Tobacco dependence Vitamin D deficiency (Primary Dx) Start: 06-05-2024 End: 06-05-2024 Clinisync Result Encounter Kunal Ortiz [employer] Work Phone: [facility] Unsolicited Start: 06-05-2024 End: 06-05-2024 Clinisync Result Encounter Kunal Ortiz [employer] Work Phone: [facility] Unsolicited Start: 06-02-2024 End: 06-02-2024 [facility] Start: 05-28-2024 End: 05-28-2024 Bamboo flowsheet Kunal Ortiz [employer] Work Phone: [facility] Start: 05-28-2024 End: 05-28-2024 Bamboo flowsheet Kunal Ortiz [employer] Work Phone: [facility] Start: 05-28-2024 End: 05-28-2024 Office outpatient visit 15 minutes Kunal Ortiz [employer] Work Phone: [facility] Comment on above: Prediabetes (Primary Dx); Hypertriglyceridemia (CMS/HCC) Start: 05-28-2024 End: 05-28-2024 ambulatory KUNAL ORTIZ Not Available Start: 05-25-2024 End: 05-25-2024 Bamboo flowsheet Dandy Correa DO Work Phone: [facility] Start: 05-25-2024 End: 05-25-2024 Bamboo flowsheet Dandy Correa DO Work Phone: [facility] Start: 05-25-2024 End: 05-25-2024 ambulatory DANDY HERNANDEZER Not Available Start: 05-01-2024 Non-patient / Non-visit Jessica Ortiz [employer]-C Work Phone: [facility] Work Phone: Start: 05-01-2024 End: 05-01-2024 Admission to same day surgery center Kunal Ortiz [employer]-C Work Phone: [facility] Work Phone: Start: 05-01-2024 End: 05-01-2024 ambulatory Kunal Ortiz [employer]-C Work Phone: [facility] Work Phone: Start: 04-21-2024 End: 04-21-2024 Orders Only Kunal Ortiz [employer] Work Phone: [facility] Comment on above: Age-related osteopor osis without current pathological fracture (CMS/HCC) (Primary Dx) Start: 04-13-2024 End: 04-13-2024 Office outpatient visit 15 minutes Delmi Love [employer] Work Phone: [facility] Comment on above: Acute non-recurrent maxillary sinusitis (Primary Dx); Tobacco dependence; Acute URI Start: 04-13-2024 End: 04-13-2024 ambulatory DELMI LOVE Not Available Start: 03-26-2024 End: 03-26-2024 Orders Only Kunal Ortiz [employer] Work Phone: [facility] Comment on [...] End: 03-19-2024 Clinisync Result Encounter Kunal Ortiz [employer] Work Phone: [facility] Unsolicited Start: 03-19-2024 End: 03-19-2024 Clinisync Result Encounter Kuanl Solorzanok [employer] Work Phone: [facility] Unsolicited Start: 02-27-2024 End: 02-27-2024 Bamboo flowsheet Kunal Smithtrick [employer] Work Phone: [facility] Start: 02-27-2024 End: 02-27-2024 Bamboo flowsheet Kunal Solorzanok [employer] Work Phone: [facility] Start: 02-27-2024 End: 02-27-2024 Patient encounter procedure Kunal Solorzanok [employer] Work Phone: [facility] Comment on above: Screening for malign ant neoplasm of colon (Primary Dx); Prediabetes; Encounter for screening mammogram for malignant neoplasm of breast; Encounter for osteoporosis screening in asymptomatic postmenopausal patient; Need for immunization against influenza Start: 02-27-2024 End: 02-27-2024 ambulatory KUNAL ORTIZ Not Available Start: 02-24-2024 End: 02-24-2024 Orders Only Kunal Solorzanok [employer] Work Phone: [facility] Comment on above: Mixed hyperlipidemia (CMS/HCC) (Primary Dx) Start: 02-18-2024 End: 02-18-2024 Clinisync Result Encounter Kunal Solorzanok [employer] Work Phone: [facility] Unsolicited Start: 02-18-2024 End: 02-18-2024 Clinisync Result Encounter Kunal Solorzanok [employer] Work Phone: [facility] Unsolicited Start: 02-17-2024 End: 02-17-2024 Refill Kunal Ortiz [employer] Work Phone: [facility] Comment on [...] Start: 02-11-2024 End: 02-11-2024 Refill Kunal Ortiz [employer] Work Phone: [facility] Comment on above: Hyperlipidemia, unsp ecified hyperlipidemia type (CMS/HCC); Hypothyroidism, unspecified type (CMS/HCC) Start: 01-22-2024 End: 01-22-2024 Clinisync Result Encounter Kunal Ortiz [employer] Work Phone: [facility] Unsolicited Start: 01-22-2024 End: 01-22-2024 Clinisync Result Encounter Kunal Ortiz [employer] Work Phone: [facility] Unsolicited Start: 12-19-2023 End: 12-19-2023 Bamboo flowsheet Kunal Ortiz [employer] Work Phone: [facility] Start: 12-19-2023 End: 12-19-2023 Bamboo flowsheet Kunal Ortiz [employer] Work Phone: [facility] Start: 12-19-2023 End: 12-19-2023 Office outpatient visit 15 minutes Kunal Ortiz NP Work Phone: [facility] Comment on above: Prediabetes (Primary Dx); Hypertriglyceridemia (CMS/HCC); Hypothyroidism, unspecified type (CMS/HCC); Impacted cerumen of left ear Start: 05-24-2023 Chart abstracting Ame castillo PA Work Phone: [facility] Start: 05-24-2023 End: 05-24-2023 Postop follow up visit related to original px Ame Hong PA Work Phone: [facility] Comment on above: S/P carpal tunnel re lease (Primary Dx); Right hand pain; Arthritis of carpometacarpal (CMC) joint of right thumb Start: 07-03-2022 End: 07-04-2022 ambulatory SHAIKH Lorelei ENGEL Facility:[facility] Start: 03-29-2022 End: 03-30-[address] JOSE DAVID GODWIN Facility:[facility] Start: 02-06-2022 End: 02-07-[address] JOSE DAVID GODWIN Facility:[facility] Start: 11-26-2021 End: 11-26-2021 ambulatory Yuliet Perez Other [employer] Other Start: 11-26-2021 Office outpatient ne w 20 minutes Yuliet Perez [facility] Start: 11-26-2021 End: 11-26-2021 Departed Referred DO Jose David Godwin Work Phone: [facility] [place] Start: 09-13-2021 End: 09-13-2021 Patient encounter procedure DO Jose David Godwin Work Phone: [facility] [address] Procedures Date Procedure Procedure Detail Performing Clinician Start: 01-20-2025 Computerized ophthal alma imaging retina Dandy Correa DO Work Phone: Start: 01-20-2025 End: 01-20-2025 [facility] medical xm&eval comprhnsv estab pt 1/> Epiretinal membrane (ERM) of both eyes Dandy Correa DO Work Phone: Comment on above: Epiretinal membrane (ERM) of both eyes (Primary Dx); Hollenhorst plaque, right eye; Dry eyes Start: 11-01-2024 NM UNA PERF SPECT RE ST STR Generic External Data Provider Start: 10-20-2024 ALL LIPID PROFILE (FASTING) Generic External Data Provider Start: 09-10-2024 Urine culture Kunal Ortiz [employer]-C Work Phone: Start: 08-26-2024 ECG 12-LEAD Delmi Radames read [employer] Work Phone: Start: 08-26-2024 ALL CBC WITH AUTO DIFF Delmi Kate [employer] Work Phone: Start: 07-15-2024 End: 07-15-2024 Radex foot complete minimum 3 views Darien Blanca DPM Work Phone: Start: 06-05-2024 CCF CALCIUM Kunal price [employer] Work Phone: Start: 05-25-2024 Computerized ophthal alma [...] DO Work Phone: Start: 05-01-2024 Colonoscopy Kunal castillotricryan [employer]-C Work Phone: Start: 04-02-2024 Mammography Jr. Block ic DO Work Phone: Start: 03-19-2024 MLR HEMOGLOBIN A1C Marian drummond Diana [employer] Work Phone: Start: 02-18-2024 ALL LIPID PROFILE (FASTING) Kunal Diaan [employer] Work Phone: Start: 01-22-2024 TSH W/REFLEX T4 Serjio fuller Diana [employer] Work Phone: Start: 04-01-2023 Mammography Ame castillo [...] 05-04-2034 Screening for malignant neoplasm of colon [facility] Start: 03-18-2027 Screening for malignant neoplasm of colon [facility] Start: 11-09-2025 Screening for malignant neoplasm of lung Lung Cancer Screening Shared Decision Making [facility] Comment on above: Postponed from 1950 (Patient Refus ed) Start: 10-20-2025 End: 10-20-2025 Patient encounter procedure [facility] Start: 08-18-2025 Adult BMI Screening Adult BMI Screening [facility] Start: 08-18-2025 Tobacco Screening Tobacco Screening [facility] Start: 04-02-2025 Screening for malignant neoplasm of breast Mammogram [facility] Start: 03-23-2025 End: 03-23-2025 Patient encounter procedure [facility] Start: 02-26-2025 Medicare Annual Wellness (AWV) Medicare Annual Wellness (AWV) [facility] Start: 02-25-2025 End: 02-25-2025 Patient encounter procedure 02/25/2025 9:00 AM EST Office Visit [facility] [address] [place] [address] Ame Hong PA [address] [facility] [place] [place] [address] [facility] Start: 02-16-2025 End: 02-16-2025 Patient encounter procedure 02/16/2025 1:10 PM EST Office Visit [facility] [address] [place] [address] Mike Gant MD [address] [place] [address] [facility] Start: 02-09-2025 End: 02-09-2025 Patient encounter procedure 02/09/2025 2:00 PM EDT Office Visit [facility] [address] [place] [address] Delmi Love, JADE [address] [place] [address] [facility] Start: 01-20-2025 End: 01-20-2025 Patient encounter procedure [facility] Comment on above: Arrived Start: 01-13-2025 End: 01-13-2025 Patient encounter procedure [facility] Comment on above: Arrived Start: 12-25-2024 End: 12-25-2024 Patient encounter procedure 12/25/2024 9:45 AM EDT [facility] [address] [place] [address] Ame Hong PA [address] [place] [address] Left hand pain (Primary Dx) [facility] Comment on above: Left hand pain (Primary Dx) Start: 12-14-2024 Influenza vaccination [facility] Start: 11-26-2024 End: 11-26-2024 Patient encounter procedure [facility] Start: 11-23-2024 End: 11-09-2025 Bacteria identified in Urine by Culture Urine culture (clean catch) Microbiology Routine Recurrent UTI (urinary tract infection) Expected: 11/23/2024 (Approximate), Expires: 11/09/2025 [facility] Comment on above: Expected: 11/23/2024 (Approximate), Expi res: 11/09/2025 Start: 11-23-2024 End: 11-09-2025 Urinalysis complete panel - Urine Urinalysis with reflex microscopic (clean catch) Lab Routine Recurrent UTI (urinary tract infection) Expected: 11/23/2024 (Approximate), Expires: 11/09/2025 [facility] Work Phone: Comment on above: Expected: 11/23/2024 (Approximate), Expi res: 11/09/2025 Start: 11-09-2024 End: 11-09-2024 Patient encounter procedure [facility] Comment on above: Numbness and tingling of both feet (Prim ramón Dx); Spondylosis of cervical spine; Tobacco dependence; Other fatigue Start: 11-04-[address] [facility] Start: 11-04-2024 Bacteria identified in Urine by Culture Urine Culture [facility] Start: 10-14-2024 End: 10-14-2024 Patient encounter procedure 10/14/2024 10:30 AM EDT Office Visit [facility] [address] [place] [address] Darien Blanca, DPM [address] [place] [address] [facility] Start: 10-13-2024 End: 10-13-2024 Patient encounter procedure 10/13/2024 12:00 PM EDT Procedure Visit [facility] [address] [facility] [address] [place] [address] Jamia Guevara MD [address] [facility] [address] [place] [address] [facility] Start: 09-29-2024 End: 09-29-2025 MR Cervical spine WO contrast MR cervical spine wo contrast Imaging Routine Spondylosis of cervical spine Expected: 09/29/2024 (Approximate), Expires: 09/29/2025 [facility] Comment on above: Expected: 09/29/2024 (Approximate), Expi res: 09/29/2025 Start: 09-29-2024 End: 09-29-2025 MR Lumbar spine WO contrast MR lumbar spine wo contrast Imaging Routine Acquired spondylolisthesis of lumbosacral region Expected: 09/29/2024, Expires: 09/29/2025 [facility] Work Phone: Comment on above: Expected: 09/29/2024, Expires: Start: 09-29-2024 End: 09-29-2025 XR Lumbar spine Views W flexion and W extension XR lumbar spine 4+ views w flexion extension Imaging Routine Acquired spondylolisthesis of lumbosacral region Expected: 09/29/2024, Expires: 09/29/2025 [facility] Comment on above: Expected: 09/29/2024, Expires: Start: 09-24-2024 End: 09-24-[address] [facility] Comment on above: Tobacco dependence (Primary Dx); Other fatigue; Hypothyroidism, unspecified type Start: 09-24-2024 End: 09-24-2025 EMG AND NERVE CONDUCTION STUDY EMG AND NERVE CONDUCTION STUDY Neurology Routine Numbness and tingling of both feet Lumbar back pain Expected: 09/24/2024 (Approximate), Expires: 09/24/2025 [facility] Comment on above: Expected: 09/24/2024 (Approximate), Expi res: 09/24/2025 Start: 09-24-2024 End: 09-24-2025 XR Cervical spine 2 or 3 Views XR cervical spine 2 or 3 views Imaging Routine Neck pain Expected: 09/24/2024, Expires: 09/24/2025 [facility] Comment on above: Expected: 09/24/2024, Expires: Start: 09-24-2024 End: 09-24-2025 XR Lumbar spine 2 or 3 Views XR lumbar spine 2 or 3 views Imaging Routine Lumbar back pain Expected: 09/24/2024, Expires: 09/24/2025 [facility] Work Phone: Comment on above: Expected: 09/24/2024, Expires: Start: 09-10-[address] [facility] Start: 09-10-2024 Bacteria identified in Urine by Culture Urine Culture [facility] Start: 08-25-2024 End: 08-25-2025 25-hydroxyvitamin D3 [Mass/volume] in Serum or Plasma Vitamin D 25 hydroxy Lab Routine Vitamin D deficiency Expected: 08/25/2024 (Approximate), Expires: 08/25/2025 [facility] Work Phone: Comment on above: Expected: 08/25/2024 (Approximate), Expi res: 08/25/2025 Start: 08-25-2024 End: 08-25-2024 Professional / ancillary services management 08/25/2024 11:30 AM EDT Ancillary Procedure [facility] [address] [facility] [address] [place] [id number] [facility] Start: 08-18-2024 End: 08-18-2024 Patient encounter procedure 08/18/2024 3:50 PM EDT Office Visit [facility] [address] [place] [address] Mike Gant MD [address] [place] [address] [facility] Start: 08-18-2024 End: [...] both feet Expected: 08/12/2024 (Approximate), Expires: 08/12/2025 [facility] Comment on above: Expected: 08/12/2024 (Approximate), Expi res: 08/12/2025 Start: 08-12-2024 End: 08-12-2025 Cobalamin (Vitamin B12) [Mass/volume] in Serum or Plasma Vitamin B12 Lab Routine Other fatigue Numbness and tingling of both feet Expected: 08/12/2024 (Approximate), Expires: 08/12/2025 [facility] Comment on above: Expected: 08/12/2024 (Approximate), Expi res: 08/12/2025 Start: 08-12-2024 End: 08-12-2025 ECG 12 lead ECG 12 lead ECG Routine Tobacco dependence Hyperlipidemia, unspecified hyperlipidemia type (CMS/HCC) Other fatigue Family history of coronary artery disease Expected: 08/12/2024 (Approximate), Expires: 08/12/2025 [facility] Comment on above: Expected: 08/12/2024 (Approximate), Expi res: 08/12/2025 Start: 08-12-2024 End: 08-12-2025 Iron and Iron binding capacity panel - Serum or Plasma Iron level Lab Routine Other fatigue Expected: 08/12/2024 (Approximate), Expires: 08/12/2025 [facility] Comment on above: Expected: 08/12/2024 (Approximate), Expi res: 08/12/2025 Start: 08-12-2024 End: 08-12-2025 Thyrotropin [Units/volume] in Serum or Plasma TSH Lab Routine Hypothyroidism, unspecified type (CMS/HCC) Expected: 08/12/2024 (Approximate), Expires: 08/12/2025 [facility] Work Phone: Comment on above: Expected: 08/12/2024 (Approximate), Expi res: 08/12/2025 Start: 08-12-2024 End: 08-12-2025 Thyroxine (T4) free [Mass/volume] in Serum or Plasma T4, free Lab Routine Hypothyroidism, unspecified type (CMS/HCC) Expected: 08/12/2024 (Approximate), Expires: 08/12/2025 [facility] Comment on above: Expected: 08/12/2024 (Approximate), Expi res: 08/12/2025 Start: 08-12-2024 End: 08-12-2025 Triiodothyronine (T3) Free [Mass/volume] in Serum or Plasma T3, free Lab Routine Hypothyroidism, unspecified type (CMS/HCC) Expected: 08/12/2024 (Approximate), Expires: 08/12/2025 [facility] Comment on above: Expected: 08/12/2024 (Approximate), Expi res: 08/12/2025 Start: 08-12-2024 End: 08-12-2024 Patient [facility] procedure [facility] Comment on above: Hypothyroidism, unspecified type (CMS/HC C) (Primary Dx); Acute otitis externa of left ear, unspecified type; Mixed hyperlipidemia (CMS/HCC); Tobacco dependence Start: 07-30-2024 End: 06-07-2025 25-hydroxyvitamin D3 [Mass/volume] in Serum or Plasma Vitamin D 25 hydroxy Lab Routine Vitamin D deficiency Expected: 07/30/2024 (Approximate), Expires: 06/07/2025 [facility] Work Phone: Comment on above: Expected: 07/30/2024 (Approximate), Expi res: 06/07/2025 Start: 07-20-2024 End: 07-20-2024 Professional / ancillary services management 07/20/2024 11:30 AM EDT Ancillary Procedure [facility] [address] [place] [address] [facility] Start: 07-16-2024 End: 07-16-2024 Patient encounter procedure 07/16/2024 11:45 AM EDT Office Visit [facility] [address] [place] [phone] Delmi Love NP [address] [place] [address] [facility] Start: 07-15-2024 End: 07-15-2024 Patient encounter procedure 07/15/2024 10:15 AM EDT Office Visit LOCATED [facility]IN [facility] [address] [place] [address] Darien Blanca, DPM [address] [place], [place] [id number] Arrived [facility]ATED [facility]IN [facility] Comment on above: Arrived Start: 06-07-2024 End: 06-07-2025 CBC W Auto Differential panel - Blood CBC and differential Lab Routine Tobacco dependence Expected: 06/07/2024 (Approximate), Expires: 06/07/2025 [facility] Comment on above: Expected: 06/07/2024 (Approximate), Expi res: 06/07/2025 Start: 06-07-2024 End: 06-07-2025 Comprehensive metabolic 2000 panel - Serum or Plasma Comprehensive metabolic panel Lab Routine Prediabetes Mixed hyperlipidemia (CMS/HCC) Expected: 06/07/2024 (Approximate), Expires: 06/07/2025 [facility] Comment on above: Expected: 06/07/2024 (Approximate), Expi res: 06/07/2025 Start: 06-07-2024 End: 06-07-2025 Microalbumin/Creatinine panel in random Urine Microalbumin / creatinine, urine ratio Lab Routine Prediabetes Expected: 06/07/2024 (Approximate), Expires: 06/07/2025 [facility] Work Phone: Comment on above: Expected: 06/07/2024 (Approximate), Expi res: 06/07/2025 Start: 06-07-2024 End: 06-07-2025 Urinalysis complete panel - Urine Urinalysis with reflex microscopic (clean catch) Lab Routine Prediabetes Expected: 06/07/2024 (Approximate), Expires: 06/07/2025 [facility] Comment on above: Expected: 06/07/2024 (Approximate), Expi res: 06/07/2025 Start: 05-28-2024 End: 05-28-[address] [facility] Comment on above: Arrived Start: 05-25-2024 End: 05-25-[address] [facility] Comment on above: Arrived Start: 05-01-2024 [facility] Start: 04-21-2024 End: 04-21-2025 25-hydroxyvitamin D3 [Mass/volume] in Serum or Plasma Vitamin D 25 hydroxy Lab Routine Age-related osteoporosis without current pathological fracture (CMS/HCC) Expected: 04/21/2024 (Approximate), Expires: 04/21/2025 [facility] Comment on above: Expected: 04/21/2024 (Approximate), Expi res: 04/21/2025 Start: 04-21-2024 End: 04-21-2025 Calcium [Mass/volume] in Serum or Plasma Calcium Lab Routine Age-related osteoporosis without current pathological fracture (CMS/HCC) Expected: 04/21/2024 (Approximate), Expires: 04/21/2025 [facility] Work Phone: Comment on above: Expected: 04/21/2024 (Approximate), Expi res: 04/21/2025 Start: 04-01-2024 Screening for malignant neoplasm of breast Mammogram [facility] Start: 03-23-2024 End: 03-23-2024 Patient encounter procedure 03/23/2024 2:05 PM EST Office Visit [facility] [address] [place] [address] Benjamin Tan MD [address] [place] [address] [facility] Start: 02-27-2024 End: 2025 DBT Breast - bilateral screening Bilateral screening mammogram with tomosynthesis Imaging Routine Encounter for screening mammogram for malignant neoplasm of breast Expected: 02/27/2024, Expires: 2025 [facility] Comment on above: Expected: 02/27/2024, Expires: Start: 02-27-2024 End: 02-26-2025 DXA Skeletal system Views for bone density DEXA bone density Imaging Routine Encounter for osteoporosis screening in asymptomatic postmenopausal patient Expected: 02/27/2024, Expires: 02/26/2025 [facility] Comment on above: Expected: 02/27/2024, [...] of colon Expected: 02/27/2024 (Approximate), Expires: 02/26/2025 [facility] Work Phone: Comment on above: Expected: 02/27/2024 (Approximate), Expi res: 02/26/2025 Start: 02-27-2024 End: 02-27-2024 Patient encounter procedure 02/27/2024 11:00 AM EST [facility] [address] [place] [address] Kunal Ortiz, JADE [address] [place] [address] [facility] Start: 02-20-2024 Medicare Annual Wellness (AWV) Medicare Annual Wellness (AWV) [facility] Start: 02-13-2024 End: 02-13-2024 Patient encounter procedure 02/13/2024 1:50 PM EDT Office Visit [facility] [address] [facility] [address] [place] [phone] Ben Roe DPM [address] [facility] [address] [place] [address] [facility] Start: 01-10-2024 Screening for malignant neoplasm of colon Colorectal Cancer Screening [facility] Comment on above: Postponed from 1950 (Other Patient Reasons) Start: 01-02-2024 End: 12-18-2024 TSH W/REFLEX TO FT4 TSH W/REFLEX TO FT4 Lab Routine Hypothyroidism, unspecified type (CMS/HCC) Expected: 01/02/2024 (Approximate), Expires: 12/18/2024 [facility] Work Phone: Comment on above: Expected: 01/02/2024 (Approximate), Expi res: 12/18/2024 Start: 12-19-2023 End: 12-19-2023 Patient encounter procedure 12/19/2023 11:30 AM EDT Office Visit [facility] [address] [place] [phone] Kunal Ortiz NP [address] [place] [phone] Prediabetes (Primary Dx); Hypertriglyceridemia (CMS/HCC); Mixed hyperlipidemia (CMS/HCC) [facility] Comment on above: Prediabetes (Primary Dx); Hypertriglyceridemia (CMS/HCC); Mixed hyperlipidemia (CMS/HCC) Start: 12-15-2023 COVID-19 Vaccine ( season) COVID-19 Vaccine ( season) [facility] Start: 12-15-2023 Influenza vaccination Influenza Vaccine (#1) [facility] Start: 10-11-2023 End: 10-11-2023 Patient encounter procedure 10/11/2023 10:30 AM EDT Office Visit [facility] [address] [facility] [address] [place] [address] Ame Hong PA [address] [facility] [address] [place] [address] [facility] Start: 05-24-2023 End: 05-24-2023 Patient encounter procedure 05/24/2023 10:30 AM EST Office Visit [facility] [address] [place] [address] Ame Hong, PA [address] [facility] [address] [place] [address] [facility] Start: 11-13-2022 Adult BMI Screening Adult BMI Screening [facility] Start: 03-25-2022 Screening for malignant neoplasm of colon [facility] Start: 2016 Fall Risk Screening Fall Risk Screening [facility] Start: 2001 Administration of varicella zoster vaccine Zoster (Shingles) Vaccine (1 of 2) [facility] Start: 1970 DTaP,Tdap and Td Vaccines (1 - Tdap) DTaP,Tdap and Td Vaccines (1 - Tdap) [facility] Start: 1969 Adult BMI Follow Up Plan Adult BMI Follow Up Plan [facility] Start: 1963 Depression Screening Depression Screening [facility] Start: 1963 Tobacco Screening Tobacco Screening [facility] Start: 1951 Medicare Annual Wellness (AWV) Medicare Annual Wellness (AWV) [facility] Start: 1950 Screening for malignant neoplasm of colon [facility] Start: 1951 Screening for malignant neoplasm of lung Lung Cancer Screening Shared Decision Making [facility] Start: 1950 Tobacco Counseling Tobacco Counseling [facility] Patient Education Colon polyps H emorrhoids ED Diverticulosis [facility]: US.doppler Extremity arteries - bilateral for physiologic artery study at rest and with exercise VASC US PVR/SEGMENTAL PRESSURES LOWER Imaging Routine Peripheral vascular disease (CMS/HCC) Ordered: 07/15/2024 [facility] Work Phone: Comment on above: Ordered: 07/15/2024 XR Hand - right 3 Views XR hand 3+ views right Imaging Routine Right hand pain 05/24/2023 10:32 AM EST [facility] Work Phone: Immunizations Immunization Date Immunization Notes Care Provider Fa cility 02-27-2024 influenza, seasonal, injectable, preservative free Kunal Ortiz NP Work Phone: [facility] 02-27-2024 influenza virus vaccine, unspecified formulation Scanning External [facility] 02-13-2023 Influenza, Seasonal, Quadrivalent, Adjuvanted Delmi Aichholz [employer]ANSFORMER COIL WINDER Work Phone: [facility] 02-13-2023 influenza virus vaccine, unspecified formulation Kunal Smithtrick [employer] Work Phone: [facility] 02-07-2022 Influenza, Seasonal, Quadrivalent, Adjuvanted Delmi Aichholz [employer] Work Phone: [facility] 04-11-2021 Influenza, Seasonal, Quadrivalent, Adjuvanted Delmi Aichholz [employer]FORMER [employer] W[employer] Work Phone: [facility] 01-13-2020 influenza, injectabl e, quadrivalent, preservative free Delmi Aichholz [employer]FORM[employer] W[employer]ER Work Phone: [facility] 12-25-2019 influenza, injectabl e, quadrivalent, preservative free Delmi Aichholz [employer]FORM[employer]ER Work Phone: [facility] 01-21-2019 pneumococcal polysaccharide vaccine, 23 valent Delmi Aichholz [employer]ANSFORMER [employer] W[employer]ER Work Phone: [facility] 01-21-2019 Seasonal, quadrivale nt, recombinant, injectable influenza vaccine, preservative free Delmi Aichholz [employer]FORM[employer] Work Phone: [facility] 01-28-2018 Seasonal trivalent influenza vaccine, adjuvanted, preservative free Delmi Aichholz [employer]FORMER [employer] Work Phone: [facility] 03-14-2017 influenza, injectabl e, quadrivalent, preservative free Delmi Aichholz [employer]FORM[employer] Work Phone: [facility] 03-14-2017 pneumococcal conjuga te vaccine, 13 valent Delmi Aichholz [employer]FORM[employer] W[employer] Work Phone: [facility] 01-23-2016 seasonal influenza, intradermal, preservative free Delmi Aichholz [employer] Work Phone: [facility] Payers Date Payer Category Payer Self-pay [id number] 2021 Medicare [facility] MEDICARE ADVANTAGE [facility] MEDICARE ADVANTAGE [id number] 2021-Present [address] [place] [id number] 2021 Medicare (Managed Care) [facility] ADVANT[facility] Member Subscriber Plan / Payer (Effective 2021-Present) Name: Bertha Galarza Relation to Subscriber: Self Name: Bertha Galarza Payer ID: Not on file Group ID: [id number] Type: Not on file Address: [address] [place] [id number] 2019 Medicare [employer] MEDICARE Member Subscriber Plan / Payer (Effective 2019-Present) Name: Bertha Galarza Relation to Subscriber: Self Name: Bertha Galarza Payer ID: [id number] (NAIC) Group ID: [id number] Type: Not on file Address: [address] [place] [id number] 1959 Medicare [id number] 1950 Unknown [id number] 2.16.840.1.955680.3.579. 2.593 1951 Unknown [id number] 2.16.840.1.550169.3.579. 2.593 1951 Unknown [id number] 2.16.840.1.393127.3.579. 2.593 1951 Unknown [id number] 2.16.840.1.628094.3.579. 2.1286 1951 Unknown [id number] 2.16.840.1.557809.3.579. 2.1286 1951 Unknown [id number] 2.16.840.1.709179.3.579. 2.1259 1951 Unknown [id number] 2.16.840.1.872498.3.579. 2.1259 1951 Unknown [id number] 2.16.840.1.625724.3.579. 2.9 1951 Unknown [id number] 2.16.840.1.215877.3.579. 2.1259 1951 Unknown [id number] 2.16.840.1.402072.3.579. 2.1259 1951 Unknown [id number] 2.16.840.1.292968.3.579. 2.1259 1951 Unknown [id number] 2.16.840.1.331924.3.579. 2.1259 1951 Unknown [id number] 2.16.840.1.884481.3.579. 2.1259 1951 Unknown [id number] 2.16.840.1.187773.3.579. 2.1259 1951 Unknown [id number] 2.16.840.1.759385.3.579. 2.1259 1951 Unknown [id number] 2.16.840.1.331731.3.579. 2.1259 1951 Unknown [id number] 2.16.840.1.526415.3.579. 2.1259 1951 Unknown [id number] 2.16.840.1.388720.3.579. 2.1259 1951 Unknown [id number] 2.16.840.1.859271.3.579. 2.1259 1951 Unknown [id number] 2.16.840.1.305161.3.579. 2.9 1951 Unknown [id number] 2.16.840.1.571115.3.579. 2.1258 1951 Unknown [id number] 2.16.840.1.675581.3.579. 2.125 1951 Unknown [id number] 2.16.840.1.349938.3.579. 2.1258 1951 Unknown [id number] 2.16.840.1.920224.3.579. 2.9 1951 Unknown [id number] 2.16.840.1.317307.3.579. 2.1258 1951 Unknown [id number] 2.16.840.1.990743.3.579. 2.1259 1951 Unknown [id number] 2.16.840.1.856782.3.579. 2.1259 Unknown Marty BC/BS 1 [id number] Unknown Other1 (STD) [id number] Unknown [id number] 2.16.840.1.419291.3.579. 2.531 Unknown [id number] 2.16.840.1.482444.3.579. 2.531 Unknown [id number] 2.16.840.1.122011.3.579. 2.531 Social History Date Type Detail Facility Tobacco smoking stat [email or web address] Unknown if ever smoked [facility] Work Phone: Start: 1950 Sex Assigned At Female [facility] Start: 03-29-2023 End: 11-12-2023 Sex Assigned At [facility] Start: 07-28-1973 End: 11-08-2023 Tobacco smoking status SCIS Smokes tobacco daily [facility] Start: 07-28-1973 History of tobacco use Cigarette Smoker [facility] Start: 11-07-2022 End: 11-08-2023 Tobacco use and exposure Smokeless tobacco non-user [facility] Start: 05-03-2023 End: 01-20-2025 Alcohol intake Lifetime non-drinker (finding) [facility] [...] to any clubs or organizations such as yazdanism groups, unions, fraternal [...] 05-01-2024 Tobacco smoking status NHIS Smoker (finding) [facility] Start: 05-01-2024 Sex Patient sex unknown (finding) [facility] How often do you nee d to have someone help you when you read instructions, pamphlets, or other written material from your doctor or pharmacy [SILS] Rarely [facility] Start: 08-11-2024 End: 08-18-2024 Alcoholic beverage intake Current drinker of alcohol (finding) [facility] Start: 05-16-2020 Alcohol Comment occassional [facility] Start: 11-18-2014 End: 09-11-2024 Sex Female (finding) [facility] Start: 06-11-2020 Gender identity Identifies as female gender (finding) [facility] Goals Date Patient Goal Desired Activity /State Clinical Notes 11-26-2021 to 01-20-2025 Dandy Correa DO - 01/20/2025 1:30 PM EDTJr. Trixie Sanches Simón, - 01/13/2025 9:45 AM JANINA Olivo - 12/25/2024 9:45 AM Saurabh Love NP - 11/09/2024 6:41 PM EDT Note Date & Type Note Facility 01-20-2025 Note Right Eye Quality was borderline. Scan locations included subfoveal. Progression has been stable. Findings include abnormal foveal contour. Left Eye Quality was borderline. Scan locations included subfoveal. Progression has been stable. Findings include normal observations. Notes Good scan with normal appearance left eye (OS) [facility] 01-20-2025 History of Present illness Narrative Images from the original note were not included. Assessment/Plan Epiretinal membrane (ERM) of both eyes [...] scrubs were recommended. documented in this encounter [facility] 01-13-2025 History of Present illness Narrative Images from the original note were not included. HISTORY OF PRESENT ILLNESS: EST PT Bertha Galarza is an 74 y.o. @ female. (EST PT) (LAST APPT W/ JOCELYNE) - RECHECK (L) HAND / WRIST N/T / (L) MF LOCKING ; S/P MDP RX - HERE TO DISCUSS SURGICAL OPTIONS NO XRAY EMG B/L UE 09/25/22 NICOLE NO CORTISONE INJ MDP 12/25/24 NIGHT SPLINTING NO PAIN MGMT S/P MDP - SOME RELIEF. ADMITS NUMBNESS WITH DRIVING / SLEEPING. SOME DISCOMFORT TO IF / MF / LF. ADMITS LOCKING TO MF - HAS TO USE OPPOSING HAND TO UNLOCK. INCREASED DISCOMFORT TO MF WITH MAKING A FIST. DENIES SWELLING. DIFFICULTY WITH WIRE STITCHER OPERATOR. DIFFICULTY / LOCKING WITH PEELING POTATOES / WRINGING OUT WASH CLOTH. ADMITS MASSES TO PALMAR ASPECT OF HAND. WEARING WRIST SPLINT HS - NO RELIEF. 2 IBU DAILY. DENIES ICING / HEATING / TOPICALS. HX (R) CTR 04/05/23 - DR. GR ALLERGIES: Allergies Allergen Reactions Atorvastatin Other myalgias Penicillins Hives, Itching and Rash HOME MEDICATIONS: Current Outpatient Medications Medication Instructions B Complex-C (b complex-vitamin c) tablet 1 tablet, Oral, Daily RT cholecalciferol (VITAMIN D-3) 125 mcg, Oral, Daily levothyroxine (SYNTHROID) 75 mcg, Oral, Daily before breakfast methylPREDNISolone (Medrol Dospak) 4 MG tablets Follow schedule on package instructions nicotine polacrilex (COMMIT) 2 mg, Every 4 hours PRN rosuvastatin (CRESTOR) 40 mg, Oral, Every evening PHYSICAL EXAM: Hand/Wrist Musculoskeletal Exam Inspection Left Erythema: none [...] is normal. Strength additional comments: 5/5 EQUAL WIRE STITCHER OPERATOR STRENGTH Neurovascular Left Radial pulse: normal and 2+ Capillary refill: <3 sec Ulnar nerve sensory distribution: normal Median nerve sensory distribution: decreased Superficial radial nerve sensory distribution: normal Special Tests Left Phalen's: positive Carpal compression test: positive Tinel's - carpal tunnel: positive General Constitutional: appears stated age Labored breathing: no Neurological: alert and oriented x3 Skin: intact Lymphadenopathy: none Vitals: There is no height or weight on file to calculate BMI. Tobacco Use: High Risk (01/13/2025) Patient History Smoking Tobacco Use: Every Day Smokeless Tobacco Use: Never Passive Exposure: Current Alcohol Use: Patient Declined (11/12/2023) AUDIT-C Frequency of Alcohol Consumption: Patient declined Average Number of Drinks: Patient declined Frequency of Binge Drinking: Patient declined IMAGING: Procedures No orders of the defined types were placed in this encounter. ASSESSMENT: ICD-10-CM 1. Trigger middle finger of left hand M65.332 2. Carpal tunnel syndrome of left wrist G56.02 PLAN: Acute we have discussed her symptoms, physical exam, EMG and response to night splinting. We have recommended an open release of the transverse carpal ligament the left wrist and hand and left middle finger trigger finger release. We will see her back on the day of surgery. We have discussed both surgical and nonsurgical treatment options with the patient and the risks and benefits associated with both. The patient is requesting surgical intervention because the patient's symptoms were affecting the patient's activities of daily living and ability to sleep. The patient's symptoms were unresponsive to outpatient treatment options. After lengthy discussions involving but not limited to both surgical and nonsurgical treatment options the patient has requested surgical intervention and we will see them back on the day of surgery. The patient understands the risks of said treatment. Questions answered in laymen terms at the bedside. The diagnosis, home exercise plan and any ongoing restrictions/ recommendations reviewed. If unable to be reached in office, I recommend evaluation at nearest Emergency Room if any symptoms worsened or new symptoms develop for requiring urgent evaluation. documented in this encounter [facility] 12-25-2024 History of Present illness Narrative Images [...] is normal. Strength additional comments: 5/5 EQUAL WIRE STITCHER OPERATOR STRENGTH Neurovascular Left Radial pulse: normal and [...] requiring urgent evaluation. Visit was preformed using Hatch-gliding pilot instructor speech recognition. documented in this encounter [facility] 11-13-2024 Note SUBJECTIVE Reason for [...] limitations from per (more content not included)... [facility] 11-09-2024 History of Present illness [...] on the importance of smoking cessation. Smoke: [id number] years, +family hx of lung cancer Declines [...] History: Diagnosis Date Actinic keratosis Cancer (HCC) 417450 Cataract CTS (carpal tunnel syndrome) 09/2022 Disease of thyroid gland 1985 Dry eyes Family history of thyroid problem High cholesterol Hx of breast cancer 2005 Personal history of other medical treatment thyroid Tear of meniscus of knee [id number] Trigger finger [id number] Visual impairment 02/2021 Past Surgical History: Procedure [...] of the risks of continued smoking: stroke, [place], all forms of cancer, lung disease, and [...] on the importance of smoking cessation. Smoke: [id number] years, +family hx of lung cancer Declines wanting this completed Associated Problem(s): Cigarette nicotine dependence without complication The patient has been advised of the risks of continued smoking: stroke, [place], all forms of cancer, lung disease, and [...] MRI was denied documented in this encounter [facility] 11-09-2024 Telephone encounter Note Please call [facility], to see if they have report from her urine culture from last week Also I forgot to ask pt, for further evaluation of fatigue, does she want to do a sleep study for evaluation for sleep apnea?? [place] [facility] 11-09-2024 Miscellaneous Notes Please call [facility], to see if they have report from her urine culture from last week Also I forgot to ask pt, for further evaluation of fatigue, does she want to do a sleep study for evaluation for sleep apnea?? [place] documented in this encounter [facility] 11-09-2024 Instructions Delmi Love NP - 11/09/2024 3:00 PM EDT Recheck urine sample in 2 weeks, get vit d level at that time as well documented in this encounter [facility] 10-20-2024 Telephone encounter Note Please let pt know that her insurance denied her MRI lumbar spine, she will need to do PT first, does she want to go that route? [place] [facility] 10-20-2024 Miscellaneous Notes Please let pt know that her insurance denied her MRI lumbar spine, she will need to do PT first, does she want to go that route? [place] documented in this encounter [facility] 10-19-2024 Note SUBJECTIVE Reason for [...] smoker, started wh (more content not included)... [facility] 10-14-2024 History of Present illness [...] had an appt. Yesterday with Neurology at [facility] in [place] (dr. Guevara)SS: 10). HPI Established patient returns to clinic for follow up evaluation of neuropathy. She was unable to afford met next. She has been taking alpha lipoic acid and rmze-mxw-mpeqvjf vitamin-B complex with some mild improvement. She [...] History: Diagnosis Date Actinic keratosis Cancer (HCC) 289458 Cataract CTS (carpal tunnel syndrome) 09/2022 Disease of thyroid gland 1986 Dry eyes Family history of thyroid problem High cholesterol Hx of breast cancer 2006 Personal history of other medical treatment thyroid Tear of meniscus of knee [id number] Trigger finger [id number] Visual impairment 02/2021 Medications Current Outpatient Medications: [...] Sister Claudia Diabetes Sister Claudia Cancer Other [facility] Stroke Sister Benjamin Melanoma Neg Hx Objective [...] Today I spent over 30 minutes in kpfv-ma-xgtv time discussing with the patient on eating [...] Darien Blanca DPM documented in this encounter [facility] 10-13-2024 History of Present illness Narrative [facility] Patient: Bertha Galarza [address], [address] , Sex: 1950, Female [place], [place] [address] Height: 165 cm Ref Phys: Aichholz fax [...] Doub=doublet; Fasc=fasciculation; FFE=full for effort; Fib=fibrillation; Myokym=myokymia; [place]=myotonic potential; N,0=normal; NR=no response; Polyph=polyphasia; Pos=positive [sharp] wave; RFU=rapidly firing units; Serr=serrated potential (2<phases<5); W&W=waxing and waning pattern INTERPRETATION: This study reveals ENMG evidence of a chronic, neuropathic, axonal, sensory > motor process affecting all lower extremity nerves tested. Needle examination demonstrates a ndvfkb-gd-lqvtqakc gradient that is most suggestive of peripheral [...] plexopathy or radiculopathy. Jamia Guevara M.D. Diplomate, [place] [employer] and Neurology (neurology, epilepsy, sleep medicine) Diplomate, [place] Board of Clinical Neurophysiology Diplomate, [place] Board of Preventive Medicine (clinical informatics) . documented in this encounter [facility] 09-25-2024 Telephone encounter Note Patient scheduled BLE on 10/13/24--no deductible--35.00 co-pay applied--patient is aware. [facility] 09-25-2024 Miscellaneous Notes Patient scheduled BLE on 10/13/24--no deductible--35.00 co-pay applied--patient is aware. documented in this encounter [facility] 09-24-2024 History of Present illness [...] cholecalciferol (VITAMIN D-3) 125 mcg, Oral, Daily C-Ccqudqmeoxoo-Pyqvp-B12-B6 (Metanx) 3-90.314-2-35 MG capsule 3 mg, Oral, [...] History: Diagnosis Date Actinic keratosis Cancer (HCC) 972369 Cataract Dry eyes Family history of thyroid [...] of the risks of continued smoking: stroke, [place], all forms of cancer, lung disease, and [...] of the risks of continued smoking: stroke, [place], all forms of cancer, lung disease, and . Options for quitting smoking include: cold turkey, hypnosis, acupuncture, nicotine replacement meds (gum, lozenges, and patches), Buproprion, and Varenicline. At this time pt is encouraged to evaluate their goals for wanting to quit smoking, and reach out to provider when ready to start this process documented in this encounter [facility] 09-24-2024 Instructions Delmi Love NP - 09/24/2024 3:20 PM EDT Xray both neck and low back EMG: both legs, [facility] Cardiology documented in this encounter [facility] 09-10-2024 Evaluation note Diagnosis Onset Date Resolution Acute cystitis with hematuria noneactive September 10, 2024 2 :08pm Dysuria noneactive November 04 6:24pm [facility] Work Phone: 1(372) 430-257905-29-2025 Evaluation note* Diagnosis Onset Date Resolution Status Admit Date Acute cystitis with hematuria noneac tive September 10, 2024 2:08pm UTI (urinary tract infection) acute November 04, 2024 6:24pm Dysuria noneactive November 04 6:24pm [facility] Work Phone: 1(673) 648-484805-06-2025 History of Present illness Narrative* Mike Gant MD - 08/18/2024 3:50 PM EDT Images from the original note were not included. [facility] [address] [facility] [id number] Subjective: Patient ID: Bertha Galarza is a 74 y.o. female. Chief Complaint Chief Complaint Patient presents with New Patient *3:52 pt called, they were at wrong building on [address], they are making their way to the office now, should be within the 15 minute angela period. Peripheral vascular disease F17.200 (ICD-10-CM) - Smoker History of Present Illness: Thank you for referring patient Bertha Galarza and for your trust in our practice. Bertha Galarza is a 74 y.o. pleasant female with history of DL, current smoker who presents today for consultation at the [facility] [place] due to bilateral feet numbness. 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 Dental disease full dentures Disease of thyroid gland Hyperlipidemia Hypothyroidism Past Surgical History: Procedure Laterality Date BIOPSY LARYNX Bilateral 05/30/2020 Performed by Leobardo Chaudhari MD PhD at [facility] BREAST LUMPECTOMY Left CARPAL TUNNEL RELEASE CATARACT EXTRACTION CHOLECYSTECTOMY INTRAOCULAR LENS INSERTION KNEE ARTHROSCOPY Left 2006 MICROLARYNGOSCOPY DIRECT FROZEN SECION Bilateral 05/30/2020 Performed by Leobardo Chaudhari MD PhD at [facility] OVARIAN CYST REMOVAL TONSILLECTOMY TRIGGER FINGER [...] Resource Strain: Low Risk (11/12/2023) Received from [facility] Overall Financial Resource Strain (CARDIA) Difficulty of Paying Living Expenses: Not hard at all Food Insecurity: No Food Insecurity (11/12/2023) Received from [facility] Hunger Vital Sign Worried About Running Out of Food in the Last Year: Never true Ran Out of Food in the Last Year: Never true Transportation Needs: No Transportation Needs (11/12/2023) Received from [facility] PRAPARE - Transportation Lack of Transportation (Medical): No Lack of Transportation (Non-Medical): No Physical Activity: Inactive (11/12/2023) Received from [facility] Exercise Vital Sign Days of Exercise per Week: 0 days Minutes of Exercise per Session: 0 min Stress: No Stress Concern Present (11/12/2023) Received from [facility] [place] of Occupational Health - Occupational Stress Questionnaire Feeling of Stress : Not at all Social Connections: Unknown (11/12/2023) Received from [facility] Social Connection and Isolation Panel [NHANES] Frequency of Communication with Friends and Family: Once a week Frequency of Social Gatherings with Friends and Family: Once a week Attends Protestant Services: Patient declined Active Member of Clubs or Organizations: No Attends Club or Organization Meetings: Never Marital Status: Interpersonal Safety: Not on file Housing Instability: Unknown (11/12/2023) Received from [facility] Housing Stability Vital Sign Unable [...] for your understanding. Mike Gant MD, AKSHAT, [facility], FAC, VI Interventional Cardiology and Endovascular Interventions [facility] [place] [facility] Miscellaneous Notes* Telephone Encounter - Shelli Francis CMA - 08/17/2024 12:43 PM EDT Called patient to remind them to bring their most current copy of their medication list with them to their appt. Patient verbalizes understanding. [facility] Telephone encounter Note* Telephone Encounter - Shelli Francis CMA - 08/17/2024 12:43 PM EDT Called patient to remind them to bring their most current copy of their medication list with them to their appt. Patient verbalizes understanding. [facility]04-30-[facility] History of Present illness Narrative* Delmi [...] concentrate 2 g, Oral, 2 times daily M-Semvimezpnvg-Mnibb-B12-B6 (Metanx) 3-90.314-2-35 MG capsule 3 mg, Oral, [...] Medical History: Diagnosis Date Actinic keratosis Cancer ([facility]/HCC) 799719 Cataract Dry eyes Family history of thyroid problem High cholesterol ([facility]) Hx of breast cancer 2006 Personal history of other medical treatment thyroid Past Surgical History: Procedure Laterality Date CARPAL TUNNEL RELEASE Right 04/05/2023 DR STPEANIC CATARACT EXTRACTION INTRAOCULAR LENS INSERTION 02/2023 KNEE [...] of the risks of continued smoking: stroke, [place], all forms of cancer, lung disease, and [...] of the risks of continued smoking: stroke, [place], all forms of cancer, lung disease, and [...] of fatigue, will check documented in this [facility]04-30-2025 Instructions* Patient Instructions* Delmi Love NP - 08/12/2024 1:40 PM EDT Check labs Check EKG, may need a stress test documented in this [facility]04-08-2025 Telephone encounter Note* Telephone Encounter - Darien Blanca DPM - 07/21/2024 11:33 AM EDT Reviewed noninvasive arterial studies. There seems to be some very mild disease on the right lower extremity. Based on her symptomatology I recommend following up with vascular to discuss options. Thank you. [facility] [id number] Miscellaneous Notes* Telephone Encounter - Darien Blanca DPM - 07/21/2024 11:33 AM EDT Reviewed noninvasive arterial studies. There seems to be some very mild disease on the right lower extremity. Based on her symptomatology I recommend following up with vascular to discuss options. Thank you. documented in this encounterEllett [facility] HospitalTnizynqjye91-06-0322 Telephone encounter Note* Telephone Encounter - Darien Blanca DPM - 07/17/2024 9:40 AM EDT I would recommend that she purchase an ildw-rlm-vtzhbjz vitamin-B complex and I will send a prescription for alpha lipoic acid to her pharmacy. Thank you Victor Hugo. [facility] HospitalYkqvvsakwl51-31-1086 Miscellaneous Notes* Telephone Encounter - Darien Blanca DPM - 07/17/2024 9:40 AM EDT I would recommend that she purchase an cnyf-mzb-urxcodm vitamin-B complex and I will send a prescription for alpha lipoic acid to her pharmacy. Thank you Victor Hugo. * Telephone Encounter - Victor Hugo Martinez - 07/16/2024 8:38 AM EDT Patient called stating that the Rx is too costly and that she would like you to send in the other medications you mentioned at her appointment. documented in this encounterEllett Memorial HospitalZuslbauzpu82-07-0385 History of Present illness Narrative* Delmi Love [...] ear pops sometimes as well. * Delmi Love, JADE - 07/16/2024 11:45 AM EDT Images from [...] concentrate 2 g, Oral, 2 times daily V-Rwvfgdpfjnfm-Zkkoz-B12-B6 (Metanx) 3-90.314-2-35 MG capsule 3 mg, Oral, [...] Medical History: Diagnosis Date Actinic keratosis Cancer ([facility]) 704677 Cataract Dry eyes Family history of thyroid problem High cholesterol ([facility]) Hx of breast cancer 2006 Personal [...] of the risks of continued smoking: stroke, [place], all forms of cancer, lung disease, and [...] of the risks of continued smoking: stroke, [place], all forms of cancer, lung disease, and . Options for quitting smoking include: cold turkey, hypnosis, acupuncture, nicotine replacement meds(gum, lozenges, and patches), Buproprion, and Varenicline. At this time pt is encouraged to evaluate their goals for wanting to quit smoking, and reach out toprovider when ready to start this process documented [place] [id number] Instructions* Patient Instructions* Delmi Love NP - 07/16/2024 11:45 AM EDT Ear drops to left ear documented in [place] encounter[place] [id number] Telephone encounter Note* Telephone Encounter - Victor Hugo Martinez - 07/16/2024 8:38 AM EDT Patient called stating that the Rx is too costly and that she would like you to send in the other medications you mentioned at her appointment. [facility] HospitalUsmaxujmid04-22-1142 History of Present illness Narrative* Darien Blanca DPM - 07/15/2024 10:15 AM EDT Images from the original note were not included. Subjective Patient ID: Bertha Galarza is a 74 y.o. 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 Pt states she has trouble walking. RGT pain, 4th digit left foot corn. Pt also relates callus on lateral dorsal foot. And relates pain, numbness with toes, also relates swelling. No recent xrays. Did purchase insoles from the [employer] but states they hurt her feet. SS: [...] Medical History: Diagnosis Date Actinic keratosis Cancer ([facility]) 376759 Cataract Dry eyes Family history of thyroid problem High cholesterol ([facility]) Hx of breast cancer 2006 Personal history of other medical treatment thyroid Medications Current Outpatient Medications: aspirin 81 MG EC tablet, Take 81 mg by mouth Daily, Disp: , Rfl: fish oil concentrate ([place]-3) 1000 MG capsule, Take 2 capsules (2 [...] in the morning.,Disp: 16 g, Rfl: 3 T-Aiciizxoqzbv-Nmkjl-B12-B6 (Metanx) 3-90.314-2-35 MG capsule, Take 3 mg [...] angle. Assessment/Plan ICD-10-CM 1. Neuropathy, idiopathic G60.9 M-Kceynogmflig-Ybiaa-B12-B6 (Metanx) 3-90.314-2-35 MG capsule 2. Neuritis M79.2 J-Ffkedojbjxzx-Ncegu-B12-B6 (Metanx) 3-90.314-2-35 MG capsule 3. Pain in [...] the distal digits. Prescription was sent to [facility] and she was given a sample pack today to start. Additionally I recommend noninvasive arterial studies giving her smoking history and the subjective concerns that she is describing. This wasordered and sent to [facility].I will review these results and if appropriate refer her to vascular. I would like to see her back in 3 months to follow up on the Metanx therapy. If this is cost prohibitivefor her I have asked her to call our office and we will have her take a vitamin-B complex bdmu-rle-mtbipxx and I will send in a prescription [...] understanding. Darien Blanca DPM documented in this encounterEllett Memorial HospitalGhxqzbhijm00-99-2028 NoteCardiology Clinic Note HPI: Bertha Galarza is [...] concerns. Julio Cesar Borrego MD Interventional Cardiology [facility]02-13-2025 History of Present illness Narrative* Kunal Ortiz NP - 05/28/2024 10:37 AM EST Associated Problem(s): Hypertriglyceridemia (CMS/HCC) Most recent Lipid Panel Triglycerides were still elevated at 313 but a decrease from previous of 430. Pt discussed initiating Fenofibrate with Sharepoint Application Developer- he recommended and initiated Aspirin 81mg atthis [...] of 430. Pt discussed initiating Fenofibrate with Sharepoint Application Developer- he recommended and initiated Aspirin 81mg atthis [...] recheck in 3 months. documented in this encounterEllett Memorial HospitalDbhjntugpj63-74-4619 NoteRight Eye Quality was good. Scan locations included subfoveal. Progression has been stable. Findings include normal observations. Left Eye Quality was good. Scan locations included subfoveal. Progression has been stable. Findings include abnormal foveal contour. Notes Good scan with normal appearance right eye (OD)[facility] HospitalVfljamwjky22-71-9859 History of Present illness Narrative* Dandy Correa [...] lid scrubs were recommended. documented in this encounterEllett Memorial HospitalLoafavvtyw50-75-8962 [place] [address] Colonoscopy Procedure Report Signed Patient: Bertha Galarza MR#: [id number] : 1950 Acct:[id number] Age/Sex: 74 / F Adm Date: 5 Loc: Room: Type: [facility] Attending Dr: Taiwo Rosa MD Copies to: LUX Sanford MD~ Colonoscopy Date/Provider 05/01/2024 Taiwo Rosa MD [...] was slowly withdrawnwith the findings as below. [place] bowel prep score was good. Findings: Patient [...] MD 05/01/24 1022 Signed By: 05/01/[address] [facility]01-17-2025 History and physical noteMargaret [place] [id number] Gastroenterology H&P Signed Patient: Bertha Galarza MR#: [id number] : 1950 Acct:[id number] Age/Sex: 74 / F Adm Date: 5 Loc: Room: Type: [facility] Attending Dr: Taiwo Rosa MD Copies [...] MD 05/01/24 1021 Signed By: 05/01/[address] [facility]12-30-2024 History of Present illness Narrative * Delmi Love NP - 04/13/2024 12:05 PM ESTAssociated Problem(s): Tobacco dependence The patient has been advised of the risks of continued smoking: stroke, [place], all forms of cancer, lung disease, and [...] the original note were not included. Bertha Mejía Latonyahussein is a 73 y.o. female presents with [...] Medical History: Diagnosis Date Actinic keratosis Cancer ([facility]) 107615 Cataract Dry eyes Family history of thyroid problem High cholesterol ([facility]) Hx of breast cancer 2006 Personal [...] of the risks of continued smoking: stroke, [place], all forms of cancer, lung disease, and [...] (Vibra-Tabs) 100 MG tablet documented in this encounterEllett Memorial HospitalWeydlvveyh97-66-4010 Instructions* Patient Instructions* Delmi Love NP - 04/13/2024 11:30 AM EST Fluids, rest, atb, steroids, and inhaler If not better contact office documented in this encounterEllett Memorial HospitalMirxffgiwx99-24-9333 History of Present illness Narrative* Benjamin Tan [...] Hands Examined Digits,nails: Examined Patient wearing nail persian, Denies dark streaks under finger nails Lymphatics: [...] 1 year skin exam documented in this encounterEllett Memorial HospitalHuubeyinru60-95-3545 History of Present illness Narrative* Kunal Ortiz, TRANSFORMER COIL W[employer]ER - 02/27/2024 11:00 AM EST Images from [...] mg by mouth Daily fish oil concentrate ([place]-3) 1000 MG capsule Take 2 capsules (2 [...] Do you have a medical power of civil litigation attorney?: No Objective : BP 128/64 Pulse [...] on February 27, 2024 documented in this encounterEllett Memorial HospitalUjuumgnqqx70-59-6504 History of Present illness Narrative* Ben Roe DPM - 02/13/2024 1:50 PM EDT Patient: Bertha Cannonbryon : 1950 PCP: Moustapha [...] Medical History: Diagnosis Date Actinic keratosis Cancer ([facility]/HCC) 667922 Cataract Dry eyes Family history of thyroid [...] min Stress: No Stress Concern Present (11/12/2023) [place] of Occupational Health - Occupational Stress Questionnaire Feeling of Stress : Not at all Social Connections: Unknown (11/12/2023) Social Connection and Isolation Panel [NHANES] Frequency of Communication with Friends and Family: Once a week Frequency of Social Gatherings with Friends and Family: Once a week Attends Protestant Services: Patient declined Active Member of Clubs [...] pathological diagnosis of specimen. Patient may take qgsn-etc-rwvlhay NSAID p.r.n. for pain Application of salinocaine acid medication to lesion/lesions located at right foot Informed pt of risks and benefits of procedure including high reoccurence rate, infection, pain andconsent given. Application of DSD post procedure. Patient to continue with oral anti - inflammatories as needed for pain and recommended OTC medications such as tylenol or Ibuprofen Discussed accommodative custom inserts and mrw-sx-hhewrq cost has not covered by insurance patient may consider in the future but did recommend wfze-rfz-prfuela inserts at this time Ben Roe DPM documented in this encounterEllett Memorial HospitalQcmjwfjyxz58-35-7020 History of Present illness Narrative* Kunal Ortiz NP - 12/19/2023 11:57 AM EDTAssociated Problem(s): Prediabetes Dietary tips and recommendations given. Continue to implement lifestyle and dietary modifications. Recheck A1C in February. * Kunal Ortiz NP - 12/19/2023 11:52 AM EDTAssociated Problem(s): Hypertriglyceridemia (CMS/HCC) Most recent Lipid Panel Triglycerides were still elevated at 430 Pt discussed initiating Fenofibrate with Sharepoint Application Developer- he recommended and initiated Aspirin 81mg atthis [...] CHOL HDL RATIO 3.9 CM Resulting Agency [facility] TB TBH Component Ref Range & Units [...] - 3.740 uIU/mL 0.209 Low Resulting Agency [facility] Review of Systems Constitutional: Negative for activity [...] at 430 Pt discussed initiating Fenofibrate with Sharepoint Application Developer- he recommended and initiated Aspirin 81mg atthis [...] scan with next mammogram. documented in this [facility]09-05-2024 Instructions* Patient Instructions* Kunal Ortiz NP - [...] of vigorous aerobic activity. documented in this [facility]02-09-2024 History of Present illness Narrative* JANINA Jackson [...] is normal. 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 JANINA Jackson documented in this encounterEllett Memorial HospitalPkethjltzz21-53-4697 Evaluation note* Encounter Date Diagnosis Assessment Notes [...] understanding and is agreeable to treatment plan [employer] Other Evaluation noteNo assessment information available [facility] Work Phone: Evaluation note* Diagnosis S/P carpal tunnel release- Primary Other postprocedural status Right hand pain Pain in soft tissues of limb Arthritis of carpometacarpal (CMC) joint of right thumb documented in this encounter [facility] HealthcareEvaluation note* Diagnosis Hypertriglyceridemia (CMS/HCC)- Primary Pure [...] unspecified type (CMS/HCC) documented in this encounter [facility] HealthcareEvaluation note* Diagnosis Hypertriglyceridemia (CMS/HCC)- Primary Pure [...] Tobacco use disorder documented in this encounter [facility] HealthcareEvaluation note* Diagnosis Hypertriglyceridemia (CMS/HCC)- Primary Pure [...] ischemic heart disease documented in this encounter [facility] HealthcareEvaluation note* Diagnosis Lower extremity edema- Primary Edema Dyslipidemia Other and unspecified hyperlipidemia [facility] Diagnosis Hypertriglyceridemia (CMS/HCC)- Primary [...] D deficiency- Primary documented in this encounter 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 Mixed hyperlipidemia Short of breath on exertion Chest heaviness Other chest pain Prediabetes- Primary Other abnormal glucose Hypertriglyceridemia Pure hyperglyceridemia Hypothyroidism, unspecified type Impacted cerumen of left ear Impacted cerumen Prediabetes- Primary Other abnormal glucose Hypertriglyceridemia Pure hyperglyceridemia Other fatigue- Primary Hypothyroidism, unspecified type Acute otitis externa of left ear, unspecified type Mixed hyperlipidemia Tobacco dependence Tobacco use disorder [...] complication Lung cancer screening declined by patient Trigger middle finger of left hand- Primary Carpal tunnel syndrome of left wrist documented in this encounter [facility]* Diagnosis Hypertriglyceridemia- Primary Pure hyperglyceridemia Bilateral posterior capsular opacification Unspecified after-cataract Hollenhorst plaque, 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 Mixed hyperlipidemia Short of breath on exertion Chest heaviness Other chest pain Prediabetes- Primary Other abnormal glucose Hypertriglyceridemia Pure hyperglyceridemia Hypothyroidism, unspecified type Impacted cerumen of left ear Impacted cerumen Prediabetes- Primary Other abnormal glucose Hypertriglyceridemia Pure hyperglyceridemia Other fatigue- Primary Hypothyroidism, unspecified type Acute otitis externa of left ear, unspecified type Mixed hyperlipidemia Tobacco dependence Tobacco use disorder [...] complication Lung cancer screening declined by patient Epiretinal membrane (ERM) of both eyes- Primary Hollenhorst plaque, 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 Note Date/Time May 01, 2024 1 0:22am [facility] [address] [place] [address] Gastroenterology H&P Signed Patient: Bertha Galarza MR#: [id number] : 1950 Acct:[id number] Age/Sex: 74 / F Adm Date: 5 Loc: Room: Type: [facility] Attending Dr: Taiwo Rosa MD Copies [...] signed by Taiwo Rosa MD> 05/01/24 1022 [facility] Work Phone: History general Narrative - Reported* Type Description Date Medical History Hypothyroid Medical History Hypercholesterolemia Medical History Breast cancer Surgical History colonoscopy Surgical History cholecystectomy Surgical History knee arthroscopy Surgical History tonsillectomy and adenoidectomy Surgical History wisdom teeth Surgical History laparoscopy Surgical History tubal ligation Surgical History biopsy Surgical History left knee replacement 10/04 Hospitalization History see above [employer] Other InstructionsNot on filedocumented in this encounter [facility] SystemInstructionsNot on filedocumented in this encounter [facility] SystemInstructions* Attachments The following attachments cannot be sent through Care Everywhere. * Quitting smoking for adults (Macedonian) [facility] SystemReason for referral (narrative)No reason for referral information availableSal[facility] Work Phone: Reason for visit Narrative* Other Medical (Routine) - Closed Specialty Diagnoses / Procedures Referred By Contac t Referred To Contact Neurology Diagnoses Numbness and tingling of both feet Lumbar back pain Procedures EMG AND NERVE CONDUCTION STUDY Delmi Love, JADE [address] [place] [address] Phone: tel: fax: Jamia Guevara MD [address] [address] Phone: tel: fax: Referral ID Status Reason Start Date Expiration Date Visits Re quested Visits Authorized [id number] Closed 09/24/2024 03/23/2025 1 1 [facility] [...] Active Yuliet Perez APRN Attending Provider Active Procedure Rn Relationship Specialty Start Date End Date Jose David Gowdin MD [address] [place] [address] PCP - General Family Medicine 10/11/22 Procedure Rn Relationship Specialty Start Date End Date Jose David Godwin MD [address] [place] [address] PCP - General Family Medicine 10/11/22 Procedure Rn Relationship Specialty Start Date End Date Moustapha De Leon MD [address] [place] [address] PCP - General Family Medicine 11/08/23 Stephanie Peters, OD [address] [place] [address] Referring Physician Optometry 11/08/23 Kunal Ortiz NP [address] [place] [address] Nurse Practitioner Family Medicine 11/13/23 Procedure Rn Relationship Specialty Start Date End Date Moustapha De Leon MD [address] [place] [address] PCP - General Family Medicine 11/08/23 Stephanie Peters, OD [address] [facility] [place] [address] Referring Physician Optometry 11/08/23 Kunal Ortiz, JADE [address] [place] [address] Nurse Practitioner Family Medicine 11/13/23 Procedure Rn Relationship Specialty Start Date End Date Moustapha De Leon MD [address] [place] [address] PCP - General Family Medicine 11/08/23 Stephanie Peters, OD [address] [facility] [place] [address] Referring Physician Optometry 11/08/23 Kunal Ortiz NP [address] [place] [address] Nurse Practitioner Family Medicine 11/13/23 Procedure Rn Relationship Specialty Start Date End Date Moustapha De Leon MD [address] [place] [address] PCP - General Family Medicine 11/08/23 Stephanie Peters, OD [address] [place], [place] [address] Referring Physician Optometry 11/08/23 Kunal Ortiz NP [address] [place] [address] Nurse Practitioner Family Medicine 11/13/23 Procedure Rn Relationship Specialty Start Date End Date Moustapha De Leon MD [address] [place] [address] PCP - General Family Medicine 11/08/23 Stephanie Peters, OD [address] [facility] [place] [address] Referring Physician Optometry 11/08/23 Kunal Ortiz NP [address] [place] [address] Nurse Practitioner Family Medicine 11/13/23 Procedure Rn Relationship Specialty Start Date End Date Moustapha De Leon MD [address] [place] [address] PCP - General Family Medicine 11/08/23 Stephanie Peters, OD [address] [place] [address] Referring Physician Optometry 11/08/23 Kunal Ortiz NP [address] [place] [address] Nurse Practitioner Family Medicine 11/13/23 Procedure Rn Relationship Specialty Start Date End Date Moustapha De Leon MD [address] [place] [address] PCP - General Family Medicine 11/08/23 Stephanie Peters, OD [address] [place] [address] Referring Physician Optometry 11/08/23 Kunal Ortiz NP [address] [place] [address] Nurse Practitioner Family Medicine 11/13/23 Procedure Rn Relationship Specialty Start Date End Date Moustapha De Leon MD [address] [place] [address] PCP - General Family Medicine 11/08/23 Stephanie Peters, OD [address] [place] [address] Referring Physician Optometry 11/08/23 Kunal Ortiz NP [address] [place] [address] Nurse Practitioner Family Medicine 11/13/23 Procedure Rn Relationship Specialty Start Date End Date Moustapha De Leon MD [address] [place] [address] PCP - General Family Medicine 11/08/23 Stephanie Peters OD [address] [place] [address] Referring Physician Optometry 11/08/23 Kunal Ortiz NP [address] [place] [address] Nurse Practitioner Family Medicine 11/13/23 Procedure Rn Relationship Specialty Start Date End Date Moustapha De Leon MD [address] [place] [address] PCP - General Family Medicine 11/08/23 Stephanie Peters OD [address] [place] [address] Referring Physician Optometry 11/08/23 Kunal Ortiz NP [address] [place] [address] Nurse Practitioner Family Medicine 11/13/23 Procedure Rn Relationship Specialty Start Date End Date Moustapha De Leon MD [address] [place] [address] PCP - General Family Medicine 11/08/23 Stephanie Peters OD [address] [facility] [place] [address] Referring Physician Optometry 11/08/23 Kunal Ortiz NP [address] [place] [address] Nurse Practitioner Family Medicine 11/13/23 Procedure Rn Relationship Specialty Start Date End Date Moustapha eD Leon MD [address] [place] [address] PCP - General Family Medicine 11/08/23 Stephanie Peters, OD [address] [facility] [place] [address] Referring Physician Optometry 11/08/23 Kunal Ortiz NP [address] [place] [address] Nurse Practitioner Family Medicine 11/13/23 Procedure Rn Relationship Specialty Start Date End Date Moustapha D eLeon MD [address] [place] [address] PCP - General Family Medicine 11/08/23 Stephanie Peters, OD [address] [facility] [place] [address] Referring Physician Optometry 11/08/23 Kunal Ortiz NP [address] [place] [address] Nurse Practitioner Family Medicine 11/13/23 Procedure Rn Relationship Specialty Start Date End Date Moustapha De Leon MD [address] [place] [address] PCP - General Family Medicine 11/08/23 Stephanie Peters, OD [address] [facility] [place] [address] Referring Physician Optometry 11/08/23 Kunal Ortiz NP [address] [place] [address] Nurse Practitioner Family Medicine 11/13/23 Team Status: Active Member Role Status Dates Kunal Ortiz NP-C [...] NP-C Primary Care Provider Active Start: April Procedure Rn Relationship Specialty Start Date End Date Moustapha De Leon MD [address] [place] [address] PCP - General Family Medicine 11/08/23 Stephanie Peters, HORACE [address] [facility] [place] [address] Referring Physician Optometry 11/08/23 Kunal Ortiz NP [address] [place] [address] Nurse Practitioner Family Medicine 11/13/23 Procedure Rn Relationship Specialty Start Date End Date Moustapha De Leon MD [address] [place] [address] PCP - General Family Medicine 11/08/23 Stephanie Peters OD [address] [place] [address] Referring Physician Optometry 11/08/23 Kunal Ortiz NP [address] [place] [address] Nurse Practitioner Family Medicine 11/13/23 Procedure Rn Relationship Specialty Start Date End Date Moustapha De Leon MD [address] [place] [address] PCP - General Family Medicine 11/08/23 Stephanie Peters OD [address] [facility] [place] [address] Referring Physician Optometry 11/08/23 Kunal Ortiz NP [address] [place] [address] Nurse Practitioner Family Medicine 11/13/23 Procedure Rn Relationship Specialty Start Date End Date Moustapha De Leon MD [address] [place] [address] PCP - General Family Medicine 11/08/23 Stephanie Peters OD [address] [place] [address] Referring Physician Optometry 11/08/23 Kunal Ortiz NP [address] [place] [address] Nurse Practitioner Family Medicine 11/13/23 Procedure Rn Relationship Specialty Start Date End Date Moustapha De Leon MD [address] [place] [address] PCP - General Family Medicine 11/08/23 Stephanie Peters, OD [address] [place] [address] Referring Physician Optometry 11/08/23 Kunal Ortiz NP [address] [place] [address] Nurse Practitioner Family Medicine 11/13/23 Procedure Rn Relationship Specialty Start Date End Date Moustapha De Leon MD [address] [place] [address] PCP - General Family Medicine 11/08/23 Stephanie Peters, OD [address] [facility] [place] [address] Referring Physician Optometry 11/08/23 Kunal Ortiz NP [address] [place] [address] Nurse Practitioner Family Medicine 11/13/23 Procedure Rn Relationship Specialty Start Date End Date Moustapha De Leon MD [address] [place] [address] PCP - General Family Medicine 11/08/23 Stephanie Peters, OD [address] [place] [address] Referring Physician Optometry 11/08/23 Kunal Ortiz NP [address] [place] [address] Nurse Practitioner Family Medicine 11/13/23 Procedure Rn Relationship Specialty Start Date End Date Moustapha De Leon MD [address] [place] [address] PCP - General Family Medicine 11/08/23 Stephanie Peters, OD [address] [place] [address] Referring Physician Optometry 11/08/23 Procedure Rn Relationship Specialty Start Date End Date Moustapha De Leon MD [address] [place] [address] PCP - General Family Medicine 11/08/23 Stephanie Peters, OD [address] [place] [address] Referring Physician Optometry 11/08/23 Delmi Love NP [address] [place] [address] Nurse Practitioner Family Medicine 07/15/24 Procedure Rn Relationship Specialty Start Date End Date Moustapha De Leon MD [address] [place] [address] PCP - General Family Medicine 11/08/23 Stephanie Peters, OD [address] [place] [address] Referring Physician Optometry 11/08/23 Delmi Love NP [address] [place] [address] Nurse Practitioner Family Medicine 07/15/24 Procedure Rn Relationship Specialty Start Date End Date Moustapha De Leon MD [address] [place] [address] PCP - General Family Medicine 11/08/23 Stephanie Peters, OD [address] [place] [address] Referring Physician Optometry 11/08/23 Delmi Love NP [address] [place] [address] Nurse Practitioner Family Medicine 07/15/24 Procedure Rn Relationship Specialty Start Date End Date Moustapha De Leon MD [address] [place] [address] PCP - General Family Medicine 11/08/23 Stephanie Peters, OD [address] [place] [address] Referring Physician Optometry 11/08/23 Delmi Love NP [address] [place] [address] Nurse Practitioner Family Medicine 07/15/24 Procedure Rn Relationship Specialty Start Date End Date Moustapha De Leon MD [address] [place] [address] PCP - General Family Medicine 11/08/23 Stephanie Peters OD [address] [place] [address] Referring Physician Optometry 11/08/23 Delmi Love NP [address] [place] [address] Nurse Practitioner Family Medicine 07/15/24 Procedure Rn Relationship Specialty Start Date End Date Jose David Godwin DO PCP - General Family Medicine 04/01/20 Procedure Rn Relationship Specialty Start Date End Date Moustapha De Leon MD [address] [place] [address] PCP - General Family Medicine 11/08/23 Stephanie Peters OD [address] [facility] [place] [address] Referring Physician Optometry 11/08/23 Delmi Love NP [address] [place] [address] Nurse Practitioner Family Medicine 07/15/24 Procedure Rn Relationship Specialty Start Date End Date Jose David Godwin DO PCP - General Family Medicine 04/01/20 Procedure Rn Relationship Specialty Start Date End Date Jose David Godwin DO PCP - General Family Medicine 04/01/20 Procedure Rn Relationship Specialty Start Date End Date Moustapha De Leon MD [address] [place] [address] PCP - General Family Medicine 11/08/23 Stephanie Peters, OD [address] [place] [address] Referring Physician Optometry 11/08/23 Delmi Love NP [address] [place] [address] Nurse Practitioner Family Medicine 07/15/24 Procedure Rn Relationship Specialty Start Date End Date Moustapha De Leon MD [address] [place] [address] PCP - General Family Medicine 11/08/23 Stephanie Peters, OD [address] [place] [address] Referring Physician Optometry 11/08/23 Delmi Love NP [address] [place] [address] Nurse Practitioner Family Medicine 07/15/24 Procedure Rn Relationship Specialty Start Date End Date Moustapha De Leon MD [address] [place] [address] PCP - General Family Medicine 11/08/23 Stephanie Peters, OD [address] [facility] [place] [address] Referring Physician Optometry 11/08/23 Delmi Love NP [address] [place] [address] Nurse Practitioner Family Medicine 07/15/24 Team Status: Inactive Member Role Status Dates Kunal Ortiz , [employer]-C Primary Care Provider Ac tive Start: September 10, 2024 End: September 10, 2024 Yuliet Perez APRN Attending Provider Active Start: September 10, 2024 End: September 10, 2024 Team Status: Inactive Member Role Status Dates Yuliet Perez APRN Attending Provider Active Start: September 10, 2024 End: September 10, 2024 Procedure Rn Relationship Specialty Start Date End Date Moustapha De Leon MD [address] [place] [address] PCP - General Family Medicine 11/08/23 Stephanie Peters OD [address] [place] [address] Referring Physician Optometry 11/08/23 Delmi Love, JADE [address] [place] [address] Nurse Practitioner Family Medicine 07/15/24 Procedure Rn Relationship Specialty Start Date End Date Moustapha De Leon MD [address] [place] [address] PCP - General Family Medicine 11/08/23 Stephanie Peters OD [address] [facility] [place] [address] Referring Physician Optometry 11/08/23 Delmi Love NP [address] [place] [address] Nurse Practitioner Family Medicine 07/15/24 Procedure Rn Relationship Specialty Start Date End Date Moustapha De Leon MD [address] [place] [address] PCP - General Family Medicine 11/08/23 Stephanie Peters, OD [address] [place] [address] Referring Physician Optometry 11/08/23 Delmi Love NP [address] [place] [address] Nurse Practitioner Family Medicine 07/15/24 Procedure Rn Relationship Specialty Start Date End Date Moustapha De Leon MD [address] [place] [address] PCP - General Family Medicine 11/08/23 Stephanie Peters, OD [address] [place] [address] Referring Physician Optometry 11/08/23 Delmi Love NP [address] [place] [address] Nurse Practitioner Family Medicine 07/15/24 Procedure Rn Relationship Specialty Start Date End Date Moustapha De Leon MD [address] [place] [address] PCP - General Family Medicine 11/08/23 Stephanie Peters, OD [address] [place] [place] [address] Referring Physician Optometry 11/08/23 Delmi Love NP [address] [place] [address] Nurse Practitioner Family Medicine 07/15/24 Procedure Rn Relationship Specialty Start Date End Date Moustapha De Leon MD [address] [place] [address] PCP - General Family Medicine 11/08/23 Stephanie Peters, OD [address] [place] [address] Referring Physician Optometry 11/08/23 Delmi Love NP [address] [place] [address] Nurse Practitioner Family Medicine 07/15/24 Procedure Rn Relationship Specialty Start Date End Date Moustapha De Leon MD [address] [place] [address] PCP - General Family Medicine 11/08/23 Stephanie Peters, OD [address] [facility] [place] [address] Referring Physician Optometry 11/08/23 Delmi Love NP [address] [place] [address] Nurse Practitioner Family Medicine 07/15/24 Procedure Rn Relationship Specialty Start Date End Date Moustapha De Leon MD [address] [place] [address] PCP - General Family Medicine 11/08/23 Stephanie Peters OD [address] [place] [address] Referring Physician Optometry 11/08/23 Delmi Love NP [address] [place] [address] Nurse Practitioner Family Medicine 07/15/24 Procedure Rn Relationship Specialty Start Date End Date Moustapha De Leon MD [address] [place] [address] PCP - General Family Medicine 11/08/23 Stephanie Peters, OD [address] [place] [address] Referring Physician Optometry 11/08/23 Delmi Love NP [address] [place] [address] Nurse Practitioner Family Medicine 07/15/24 Team Status: [...] November 04, 2024 End: November 04, 2024 Procedure Rn Relationship Specialty Start Date End Date Moustapha De Leon MD [address] [place] [address] PCP - General Family Medicine 11/08/23 Stephanie Peters, OD [address] [place] [address] Referring Physician Optometry 11/08/23 Delmi Love NP [address] [place] [address] Nurse Practitioner Family Medicine 07/15/24 Procedure Rn Relationship Specialty Start Date End Date Moustapha De Leon MD [address] [place] [address] PCP - General Family Medicine 11/08/23 Stephanie Peters, OD [address] [place] [address] Referring Physician Optometry 11/08/23 Delmi Love NP [address] [place] [address] Nurse Practitioner Family Medicine 07/15/24 Procedure Rn Relationship Specialty Start Date End Date Moustapha De Leon MD [address] [place] [address] PCP - General Family Medicine 11/08/23 Stephanie Peters, OD [address] [place] [address] Referring Physician Optometry 11/08/23 Delmi Love NP [address] [place] [address] Nurse Practitioner Family Medicine 07/15/24 Procedure Rn Relationship Specialty Start Date End Date Moustapha De Leon MD [address] [place] [address] PCP - General Family Medicine 11/08/23 Stephanie Peters, OD [address] [place] [address] Referring Physician Optometry 11/08/23 Delmi Love NP [address] [place] [address] Nurse Practitioner Family Medicine 07/15/24 Procedure Rn Relationship Specialty Start Date End Date Moustapha De Leon MD [address] [place] [address] PCP - General Family Medicine 11/08/23 Stephanie Peters, HORACE [address] [place] [address] Referring Physician Optometry 11/08/23 Delmi Love NP [address] [place] [address] Nurse Practitioner Family Medicine 07/15/24 Procedure Rn Relationship Specialty Start Date End Date Moustapha De Leon MD [address] [place] [address] PCP - General Family Medicine 11/08/23 Stephanie Peters, OD [address] [place] [address] Referring Physician Optometry 11/08/23 Delmi Love NP [address] [place] [address] Nurse Practitioner Family Medicine 07/15/24 Procedure Rn Relationship Specialty Start Date End Date Moustapha De Leon MD [address] [place] [address] PCP - General Family Medicine 11/08/23 Stephanie Peters, OD [address] [place] [address] Referring Physician Optometry 11/08/23 Delmi Love NP [address] [place] [address] Nurse Practitioner Family Medicine 07/15/24 Procedure Rn Relationship Specialty Start Date End Date Moustapha De Leon MD [address] [place] [address] PCP - General Family Medicine 11/08/23 Stephanie Peters OD [address] [facility] [place] [address] Referring Physician Optometry 11/08/23 Delmi Love NP [address] [place] [address] Nurse Practitioner Family Medicine 07/15/24 Goals (unrecognized [...] Fever Reason Comments Foot Pain 74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 Pt states she has trouble walking. RGT pain, 4th digit left foot corn. Pt also relates callus on lateral dorsal foot. And relates pain, numbness with toes, also relates swelling. No recent xrays. Did purchase insoles from the [facility] but states they hurt her feet. SS: 10 Reason Onset Date Comments Advice Only 07/16/2024 Rx Change Reques t Reason Onset Date Comments Med Refill 07/23/2024 Reason Onset Date Comments Med Refill 08/05/2024 Reason Onset Date Comments Med Refill 08/11/2024 Reason Comments Follow-up Left ear pain Reason Comments New Patient *3:52 pt called, the y were at wrong building on [address], they are making their way to the office now, should be within the 15 minute angela period. Peripheral vascular [id number] (ICD-10-CM) - Smoker Specialty Diagnoses / Procedures Referred By Contac t Referred To Contact Vascular Surgery Diagnoses Peripheral vascular disease Smoker Procedures RI OFFICE OUTPATIENT VISIT 60-74 MINS HIGH MDM [id number] (SNOMED CT) - AMB REFERRAL TO VASCULAR SURGERY Darien Blanca, DPM [address] [place] [address] Phone: tel: fax: Rik Hightower MD [address] [place] [id number] Phone: tel:[phone] fax: Referral ID Status Reason Start Date Expiration Date V isits Requested Visits Authorized [id number] Pending Review 07/21/2024 01/17/2025 1 1 Reason Comments Fatigue Reason Comments FUV Metanx Bertha Stilthussein 74yo New Patient presents for 3 month FUV of Metanx therapy. Patient relates she did not start Metanx due to cost. Patient would like a refill for the Alpha Lipoic acid. Patient had an appt. Yesterday with Neurology at [facility] in [place] (dr. Guevara)SS: 10 Reason Onset Date Comments Med Refill 11/02/2024 Reason Comments Numbness and tingling of both feet Reason Comments Eye Exam INFORMATION SOURCE (unrecogn ized section and content) DATE CREATED AUTHOR 07/08/2022 [facility] DATE CREATED AUTHOR AUTHOR'S ORGANIZ ATION 08/21/2024 [facility] DATE CREATED AUTHOR AUTHOR'S ORGANIZ ATION 11/06/2024 [facility] DATE CREATED AUTHOR AUTHOR'S ORGANIZ ATION 01/21/2025 [facility] DATE CREATED AUTHOR AUTHOR'S ORGANIZ ATION 01/22/2025 [facility] EPIC FOR RECORDS PERTAINING [...] BE BASED ON THE PRIMARY CLINICAL RECORDS. [facility] [employer] [facility]. provides no warranty or guarantee of the accuracy or completeness of information in this document.
[2025-02-01 11:58] LABS: Anion Gap 12.6; Blood Urea Nitrogen 10.0 mg/dL (7.0-18.0); Calcium 9.5 mg/dL (8.5-10.1); Carbon Dioxide 28.8 mmol/L (21.0-32.0); Chloride 103 mmol/L (98-107); Estimated GFR (African America >60 (>=60 mL/min/1.73m^2); Estimated GFR (Non-African Ame >60 (>=60 mL/min/1.73m^2); Glucose 112 mg/dL (74-106); Potassium 4.4 mmol/L (3.5-5.1); Sodium 140 mmol/L (136-145)
[2025-02-01 12:09] LABS: Hematocrit 44.5 % (36.0-48.0); Hemoglobin 15.1 g/dL (12.0-16.0); Immature Granulocytes Abs Auto 0.01 10^3/uL (0.00-0.03); Immature Granulocytes Pct Auto 0.2 % (0.0-0.5); Lymphocytes Absolute Auto 1.7 10^3/uL (1.2-3.8); Mean Corpuscular HGB Conc 33.9 g/dL (29.9-35.2); Mean Corpuscular Hemoglobin 32.8 pg (26.7-34.0); Mean Corpuscular Volume 96.5 fL (81.0-99.0); Platelet Count 217 10^3/uL (150-450); Red Blood Count 4.61 10^6/uL (4.20-5.40); White Blood Count 6.1 10^3/uL (4.0-11.0)
== END 2025-02-01 11:27 | disposition home or self-care (01) ==
LOC: LAB 11:27
PROVIDERS: PCP Nurse Practitioner
DX: R93.1 Abnormal findings on diagnostic imaging of heart and coronary circulation (principal); R06.09 Other forms of dyspnea
CPT/HCPCS: 36415; 80048; 85025